=== PATIENT | male | born 1965 | race Caucasian/White ===

== ENCOUNTER 2019-08-30 10:36 | Inpatient (IN) | payer MEDICARE, OTHER ==
[~2019-08-30] VITALS: Ht 190.5 cm; Wt 107.5 kg
[2019-08-30] VITALS (11 sets, daily range): BP systolic 89–177; BP diastolic 49–68
[~2019-08-30 10:36] MED LIST: AMLO10TA4 PO; ASPI-630 PO; CARV25TA PO; CARV25TA2 PO; CHOL500016 PO; CITA40TA5 PO; CYCL10TA2 PO; DIVA-53 PO; DOCU100C28 PO; FOLI1CAP10 PO; FURO80TA3 PO; GABA-689 PO; GABA300C18 PO; INSU100C4 SQ; INSU100I30 SQ; LIPITOR80 MG PO; LISI-130 PO; LORA0.5T PO; LUBI24CA7 PO; METO5TAB4 PO; NITR0.4T22 SL; OXYC1TAB22 PO; PANT20TA2 PO; PRAZ2CAP2 PO; QUET100T4 PO; RANO10002 PO; SEVE800T9 PO; TRAZ300T2 PO; VENTOLIN HFA18 GM INH
[2019-08-30] MEDS ORDERED: NALOXONE 2 MG in IV DEXTROSE 5% 500 ML IV ONE (10:45)
[2019-08-30] MEDS ORDERED: NALOXONE 2 MG/2 ML DISP.SYRIN. IV ONE (10:45)
[2019-08-30] MEDS ORDERED: HALOPERIDOL LACTATE 5 MG/ML VIAL. IVP ONE (11:45)
[2019-08-30 11:58] LABS: BASO % 0 % (0-3); EOS # 0.1 x10^3/uL (0.0-0.7); EOS % 2 % (0-3); HEMATOCRIT 31.7 % (39.0-53.0); HEMOGLOBIN 10.8 g/dL (13.0-17.5); LYMPH # 1.2 x10^3/uL (1.0-4.8); LYMPH % 13 % (24-48); MEAN CORPUSCULAR HEMOGLOBIN 32 pg (25-35); MEAN CORPUSCULAR HGB CONC 34 g/dL (31-37); MEAN CORPUSCULAR VOLUME 95 fL (79-100); MONO # 0.8 x10^3/uL (0.0-1.1); MONO % 9 % (0-9); NEUT # 7.3 x10^3/uL (1.8-7.7); NEUT % 77 % (31-73); PLATELET COUNT 185 x10^3/uL (140-400); RED BLOOD COUNT 3.35 x10^6/uL (4.30-5.70); RED CELL DISTRIBUTION WIDTH 14.6 % (11.5-14.5); WHITE BLOOD COUNT 9.6 x10^3/uL (4.0-11.0)
[2019-08-30 12:04] LABS: CALCIUM 8.8 mg/dL (8.5-10.1); CREATININE 8.5 mg/dL (0.7-1.3); GFR 6.7; POTASSIUM 5.3 mmol/L (3.5-5.1)
[2019-08-30 12:09] LABS: ACETAMIN < 2 mcg/ml (10-30); ETHANOL < 10 mg/dL (0-10)
[2019-08-30 12:10] LABS: ALBUMIN 3.1 g/dL (3.4-5.0); ALBUMIN/GLOBULIN RATIO 0.7 (1.0-1.7); TOTAL BILIRUBIN 0.5 mg/dL (0.2-1.0); TOTAL PROTEIN 7.6 g/dL (6.4-8.2)
[2019-08-30] MEDS ORDERED: ONDANSETRON PF 4 MG/2 ML VIAL. IV PRN (12:30)
--- NOTE | 2019-08-30 13:12 | PHYS DOC ---
Past Medical History Past Medical History: Cancer, CHF, Depression, Diabetes-Type II, Heart Disease, Renal Disease, Renal Failure, Vascular Disease, Other Additional Past Medical Histor: dialysis, lung ca Past Surgical History: Cholecystectomy, Coronary Bypass Surgery, Tonsillectomy Additional Past Surgical Histo: CORONARY BYPASS x 5, fistula placement Alcohol Use: None Drug Use: None Adult General Chief Complaint Chief Complaint: ALTERED MENTAL STATUS HPI HPI Patient is a 53 year old male with history of peripheral artery disease, CAD, end-stage renal disease on dialysis and reported lung cancer who is currently on home hospice who presents decreased LOC with respiratory depression after being given her scheduled dose of morphine and Percocet. Patient was given 20 mg of MS IR at 11 PM and 10-25 mg Percocet at 1 AM by his significant other. This morning, upon returning to check on the patient'S significant other found the patient unresponsive with agonal respirations. EMS were contacted and a total 8 mg of Narcan was administered. GCS improved from 4-14. Patient initially restless and agitated but has not been on ED arrival. Significant other and EMS confirm that patient did not access or take any additional pain medication and that no pain medication is unaccounted. History is limited due to the patient's condition. Patient dialyzes Tuesdays and Saturdays. [] Review of Systems Review of Systems Review symptoms as per history of present illness. All other systems were reviewed and found to be within normal limits, except as documented in this note. Current Medications Current Medications Current Medications Medications (Trade) Dose Ordered Sig/Brittani Start Time Stop Time Status Last Admin Dose Admin Naloxone HCl (Narcan) 2 mg 1X ONCE 08/30/19 10:45 08/30/19 10:46 DC 08/30/19 11:30 2 MG Naloxone HCl 2 mg/ Dextrose 502 ml @ 0 mls/hr 1X ONCE 08/30/19 10:45 08/30/19 10:46 DC Allergies Allergies Allergies Coded Allergies Type Severity Reaction Last Updated Verified hydromorphone Allergy Severe Anaphylaxis 07/16/19 Yes Physical Exam Physical Exam Constitutional: Obtunded, pinpoint pupils. [] HENT: Normocephalic, atraumatic, bilateral external ears normal, oropharynx moist, no oral exudates, nose normal. [] Eyes:, Pupils 2 mm and sluggish. [] Neck: Normal range of motion, no tenderness, supple, no stridor. [] Cardiovascular:Heart rate regular rhythm, no murmur [] Lungs & Thorax: Bilateral breath sounds clear to auscultation [] Abdomen: Bowel sounds normal, soft, no tenderness. [] Skin: Warm, dry. [] Back: No tenderness. [] Extremities: No tenderness no edema. [] Neurologic: Listed tactile stimulation.[] Psychologic: Affect flat [] Current Patient Data Vital Signs Vital Signs Date Time Temp Pulse Resp B/P (MAP) Pulse Ox O2 Delivery O2 Flow Rate FiO2 08/30/19 11:30 78 16 99 08/30/19 10:36 99.1 186/90 (122) Nasal Cannula 4.0 99.1 EKG EKG [EKG: Reviewed] Radiology/Procedures Radiology/Procedures [] Course & Med Decision Making Course & Med Decision Making Pertinent Labs and Imaging studies reviewed. (See chart for details) [Altered mental status with respiratory depression/failure secondary to after therapeutic use of morphine/Percocet administration. Patient given additional Narcan for respiratory depression in the emergency department assaulting and increased agitation. Haldol given. Basic labs reviewed. to admit the ICU. Patient requests DNR code status Dragon Disclaimer Dragon Disclaimer This electronic medical record was generated, in whole or in part, using a voice recognition dictation system. Departure Departure Impression: Primary Impression: Altered mental status Additional Impressions: Acute respiratory failure with hypoxia End stage chronic kidney disease Chronic pain syndrome Disposition: 09 ADMITTED INPATIENT Condition: CRITICAL Referrals: SELENA SALCIDO MD (PCP) Problem Qualifiers MARCIA KNOWLES DO Aug 30, 2019 13:12
[2019-08-30] MEDS ORDERED: IV NORMAL SALINE 1000ML BAG 1,000 ML IV PRN (14:00)
--- NOTE | 2019-08-30 14:47 | PDOC2 ---
NEUROLOGY CONSULT Date of Admission Date of Admission DATE: 08/30/19 TIME: 14:34 Reason for Consult Reason for Consult: agitation Referring Physician Referring Physician: Dr. Tripp Source Source: Chart review History of Present Illness History of Present Illness The patient is a 53-year-old male who became unresponsive this morning after receiving his scheduled dose of morphine. He was in severe respiratory depression in the emergency department. He received Narcan and then became agitated. He then received Haldol and is now sedated. There is no history of stroke, seizure, or head injury. I saw the patient a month ago when he was here for chest pain and whole-body pain. He had been on chronic morphine and even then and was lethargic. In July he had a CT of the entire spine showing multilevel degenerative changes but nothing surgical. CT head showed chronic small vessel disease. 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 There is no history of stroke, seizure, or head injury. During the last hospitalization, he was very vociferous about receiving narcotics, even refusing to go to dialysis unless he got them, but we were concerned then about oversedation. Apparently since he was in the hospital, he has been diagnosed with lung cancer and is now on hospice. Past Medical History Cardiovascular: CAD, CHF, HTN, Hyperlipidemia, Other (deep venous thrombosis) Pulmonary: Bronchitis, Pulmonary embolus, Pneumonia, Other (nocturnal oxygen desaturation, sleep apnea resolved after weight loss) CENTRAL NERVOUS SYSTEM: CVA (left optic nerve), Periperal neuropathy, Other (chronic headache) GI: GERD, Other (hiatal hernia) Heme/Onc: Cancer (lung) Psych: Depression ENT: Other (bilateral hearing loss) Renal/: Chronic renal failure (dialysis) Past Surgical History Past Surgical History: Cholecystectomy, CABG, Tonsillectomy (adenoidectomy), Other (cardiac catheterization, dialysis fistula) Family History Family History: No pertinent hx Social History Social History , smoker Current Medications Current Medications Current Medications Naloxone HCl 2 mg/ Dextrose 502 ml @ 0 mls/hr 1X ONCE IV ; Start 08/30/19 at 10:45; Stop 08/30/19 at 10:46; Status DC Naloxone HCl (Narcan) 2 mg 1X ONCE IV Last administered on 08/30/19at 11:30; Start 08/30/19 at 10:45; Stop 08/30/19 at 10:46; Status DC Haloperidol Lactate (Haldol Inj) 5 mg 1X ONCE IVP Last administered on 08/30at 11:50; Start 08/30/19 at 11:45; Stop 08/30/19 at 11:46; Status DC Ondansetron HCl (Zofran) 4 mg PRN Q8HRS PRN IV NAUSEA/VOMITING; Start 08/30/19 at 12:30; Stop 08/31/19 at 12:29 Active Scripts Active Percocet 10-325 Mg Tablet (Oxycodone/Acetaminophen) 1 Each Tablet 1 Tab PO DAILY PRN 20 Days Reported Novolog (Insulin Aspart) 100 Unit/1 Ml Cartridge 100 Unit SQ TID Vitamin D3 (Cholecalciferol (Vitamin D3)) 5,000 Unit Tablet 1 Tab PO DAILY Ranexa (Ranolazine) 1,000 Mg Tab.er.12h 1 Tab PO DAILY Seroquel (Quetiapine Fumarate) 100 Mg Tablet 1 Tab PO QHS Prazosin Hcl 2 Mg Capsule 1 Cap PO QHS Protonix (Pantoprazole Sodium) 20 Mg Tablet.dr 40 Mg PO DAILY NITROGLYCERIN SubLingual (Nitroglycerin) 0.4 Mg Tab.subl 0.4 Mg SL PRN Q5MIN PRN Docusate Sodium 100 Mg Capsule 1 Cap PO DAILY Divalproex Sodium 500 Mg Tablet.dr 2 Tab PO BID Aspirin 81 Mg Tab.chew 1 Tab PO DAILY Amitiza (Lubiprostone) 24 Mcg Capsule 1 Cap PO DAILY Ventolin Hfa Inhaler (Albuterol Sulfate) 18 Gm Hfa.aer.ad 2 Puff INH PRN Q4HRS Norvasc (Amlodipine Besylate) 10 Mg Tablet 10 Mg PO DAILY Lipitor (Atorvastatin Calcium) 80 Mg Tablet 80 Mg PO HS Coreg (Carvedilol) 25 Mg Tablet 25 Mg PO BIDWMEALS Citalopram Hbr (Citalopram Hydrobromide) 40 Mg Tablet 40 Mg PO DAILY Renal Caps Softgel (Folic Acid/Vitamin B Comp W-C) 1 Mg Capsule 1 Cap PO DAILY Furosemide 80 Mg Tablet 80 Mg PO DAILY Neurontin (Gabapentin) 300 Mg Capsule 300 Mg PO TID Lisinopril 40 Mg Tablet 40 Mg PO DAILY Metolazone 5 Mg Tablet 5 Mg PO DAILY Protonix (Pantoprazole Sodium) 20 Mg Tablet.dr 40 Mg PO DAILY Renvela (Sevelamer Carbonate) 800 Mg Tablet 800 Mg PO TIDWMEALS Trazodone Hcl 300 Mg Tablet 300 Mg PO HS Tresiba Flextouch U-100 (Insulin Degludec) 100 Unit/1 Ml Insuln.pen 42 Unit SQ HS Allergies Allergies: Coded Allergies: hydromorphone (Verified Allergy, Severe, Anaphylaxis, 07/16/19) morphine ok ROS Review of System Not obtainable Physical Exam Physical Examination General: Well-developed, well-nourished, white male in no acute distress HEENT: Normocephalic andatraumatic.Temporal arteriespulsatile and nontender. Neck: Supple without bruit, no meningismus Musculoskeletal: Stability:see neurologic. Gait exam:see neurologic. Tone:see neurologic.Strength:see neurologic. Neurological: Mental Status:orientation, memory, attention span/concentration, language, fund of knowledge: Sleepy, arouses a little to voice, nonverbal, does not follow commands. Cranial Nerves:Pupils equal and reactive to light, extraocular movements areintac. Facial sensation: not cooperative. There is no facial asymmetry. All other cranial related problems are negative except as mentioned b efore.Reflexes:2+ and symmetric with flexor plantar responses. Motor:Moves all extremities to light stimulation. Coordination and gait:Not tested. Sensory:Responds to pinprick in all extremities Vitals VITALS Vital Signs Date Time Temp Pulse Resp B/P (MAP) Pulse Ox O2 Delivery O2 Flow Rate FiO2 08/30/19 13:00 Nasal Cannula 3.0 08/30/19 12:20 72 18 99 08/30/19 10:36 99.1 186/90 (122) 99.1 Labs Labs Laboratory Tests Test 08/30/19 11:45 08/30/19 12:07 White Blood Count 9.6 x10^3/uL (4.0-11.0) Red Blood Count 3.35 x10^6/uL (4.30-5.70) Hemoglobin 10.8 g/dL (13.0-17.5) Hematocrit 31.7 % (39.0-53.0) Mean Corpuscular Volume 95 fL (79-100) Mean Corpuscular Hemoglobin 32 pg (25-35) Mean Corpuscular Hemoglobin Concent 34 g/dL (31-37) Red Cell Distribution Width 14.6 % (11.5-14.5) Platelet Count 185 x10^3/uL (140-400) Neutrophils (%) (Auto) 77 % (31-73) Lymphocytes (%) (Auto) 13 % (24-48) Monocytes (%) (Auto) 9 % (0-9) Eosinophils (%) (Auto) 2 % (0-3) Basophils (%) (Auto) 0 % (0-3) Neutrophils # (Auto) 7.3 x10^3/uL (1.8-7.7) Lymphocytes # (Auto) 1.2 x10^3/uL (1.0-4.8) Monocytes # (Auto) 0.8 x10^3/uL (0.0-1.1) Eosinophils # (Auto) 0.1 x10^3/uL (0.0-0.7) Basophils # (Auto) 0.0 x10^3/uL (0.0-0.2) Sodium Level 131 mmol/L (136-145) Potassium Level 5.3 mmol/L (3.5-5.1) Chloride Level 95 mmol/L (98-107) Carbon Dioxide Level 23 mmol/L (21-32) Anion Gap 13 (6-14) Blood Urea Nitrogen 76 mg/dL (8-26) Creatinine 8.5 mg/dL (0.7-1.3) Estimated GFR (Cockcroft-Gault) 6.7 BUN/Creatinine Ratio 9 (6-20) Glucose Level 241 mg/dL (70-99) Calcium Level 8.8 mg/dL (8.5-10.1) Total Bilirubin 0.5 mg/dL (0.2-1.0) Aspartate Amino Transf (AST/SGOT) 20 U/L (15-37) Alanine Aminotransferase (ALT/SGPT) 20 U/L (16-63) Alkaline Phosphatase 149 U/L (46-116) Total Protein 7.6 g/dL (6.4-8.2) Albumin 3.1 g/dL (3.4-5.0) Albumin/Globulin Ratio 0.7 (1.0-1.7) Acetaminophen Level < 2 mcg/ml (10-30) Acetaminophen Last Dose Date Unknown Acetaminophen Last Dose Time Unknown Ethyl Alcohol Level < 10 mg/dL (0-10) Ammonia 22 mcmol/L (11-34) Laboratory Tests Test 08/30/19 11:45 08/30/19 12:07 White Blood Count 9.6 x10^3/uL (4.0-11.0) Red Blood Count 3.35 x10^6/uL (4.30-5.70) Hemoglobin 10.8 g/dL (13.0-17.5) Hematocrit 31.7 % (39.0-53.0) Mean Corpuscular Volume 95 fL (79-100) Mean Corpuscular Hemoglobin 32 pg (25-35) Mean Corpuscular Hemoglobin Concent 34 g/dL (31-37) Red Cell Distribution Width 14.6 % (11.5-14.5) Platelet Count 185 x10^3/uL (140-400) Neutrophils (%) (Auto) 77 % (31-73) Lymphocytes (%) (Auto) 13 % (24-48) Monocytes (%) (Auto) 9 % (0-9) Eosinophils (%) (Auto) 2 % (0-3) Basophils (%) (Auto) 0 % (0-3) Neutrophils # (Auto) 7.3 x10^3/uL (1.8-7.7) Lymphocytes # (Auto) 1.2 x10^3/uL (1.0-4.8) Monocytes # (Auto) 0.8 x10^3/uL (0.0-1.1) Eosinophils # (Auto) 0.1 x10^3/uL (0.0-0.7) Basophils # (Auto) 0.0 x10^3/uL (0.0-0.2) Sodium Level 131 mmol/L (136-145) Potassium Level 5.3 mmol/L (3.5-5.1) Chloride Level 95 mmol/L (98-107) Carbon Dioxide Level 23 mmol/L (21-32) Anion Gap 13 (6-14) Blood Urea Nitrogen 76 mg/dL (8-26) Creatinine 8.5 mg/dL (0.7-1.3) Estimated GFR (Cockcroft-Gault) 6.7 BUN/Creatinine Ratio 9 (6-20) Glucose Level 241 mg/dL (70-99) Calcium Level 8.8 mg/dL (8.5-10.1) Total Bilirubin 0.5 mg/dL (0.2-1.0) Aspartate Amino Transf (AST/SGOT) 20 U/L (15-37) Alanine Aminotransferase (ALT/SGPT) 20 U/L (16-63) Alkaline Phosphatase 149 U/L (46-116) Total Protein 7.6 g/dL (6.4-8.2) Albumin 3.1 g/dL (3.4-5.0) Albumin/Globulin Ratio 0.7 (1.0-1.7) Acetaminophen Level < 2 mcg/ml (10-30) Acetaminophen Last Dose Date Unknown Acetaminophen Last Dose Time Unknown Ethyl Alcohol Level < 10 mg/dL (0-10) Ammonia 22 mcmol/L (11-34) Assessment/Plan Assessment/Plan Impression: Toxic encephalopathy related to narcotics, now sedated from Haldol; status-post Narcan Chronic pain Depression and other psychiatric problems. Recommendations: Observation Pain management, hopefully with a nonnarcotic agent. I see no need for additional neurological studies such as CT of the head repeat or EEG Thank you for letting me help with the patient's care. MARILUZ ALNA MD Aug 30, 2019 14:47
[2019-08-30] MEDS ORDERED: DIALYSIS PATIENT. MC PRN ×2 (16:30)
[2019-08-30] MEDS: INSULIN LISPRO 300 UNITS/3 ML VIAL. SQ SCH (17:00)
[2019-08-30] MEDS ORDERED: DEXTROSE 50% 25 GM / 50ML DISP.SYRIN. IV PRN (17:00)
--- NOTE | 2019-08-30 17:02 | PDOC ---
Provider Note Provider Note Pt seen in ICU, spoke with ICU nurse and Dialysis nurse.#[id number] SELENA SALCIDO MD Aug 30, 2019 17:02
--- NOTE | 2019-08-30 17:29 | HP ---
ADMIT DATE: 08/30/2019 MEDICAL HISTORY AND PHYSICAL LOCATION: 106. REASON FOR ADMISSION TO THE HOSPITAL: Altered mental status, probably secondary to narcotic pain medication. HISTORY OF PRESENT ILLNESS: The patient is a 53-year-old male. The patient has chronic renal failure, on hemodialysis for 3 years. He had a bypass surgery 3 years ago, 5-vessel disease, and has chronic pain syndrome. The patient was last admitted to the hospital 6 weeks ago. At that time, the patient was complaining a lot of pain; had extensive workup; seen Pain Clinic, Neurology and was insisting on getting pain medication and otherwise he will not go to dialysis. The patient left the hospital at that time and apparently the patient has been on hospice. He is still going to dialysis 3 times a week, Tuesday, , and Tuesday and apparently is on Percocet and hospice started on morphine. He was getting 20 mg morphine sulfate at 11:00 p.m. and then 10 mg Percocet at 1 a.m. The patient was very unresponsive with agonal respiration. The patient's significant other called paramedics, came in and gave 8 mg of Narcan. The patient later became agitated. The patient was given Haldol, was admitted to the hospital and is being seen by Neurology as well as Pain Clinic here. PAST MEDICAL HISTORY: As mentioned above, has history of coronary artery disease, bypass surgery 3 years ago. He is on dialysis at least for 3 years hemodialysis. He also has chronic pain syndrome, depression, heart failure, renal disease. PAST SURGICAL HISTORY: Gallbladder surgery, bypass surgery, tonsillectomy, AV shunts. He also had a fall and injury to the hip and femur, had surgeries done for that. ALLERGIES: HYDROMORPHONE. MEDICATIONS AT HOME: Amlodipine 10 mg daily, aspirin 81 mg daily, is on Depakote 1000 mg twice a day, Colace 100 mg daily, Lasix 80 mg daily, gabapentin 300 mg 3 times daily, lisinopril 40 mg daily, Amitiza 24 mcg daily, nitroglycerin p.r.n., oxycodone 10 mg q.6 p.r.n., Seroquel 100 mg at bedtime, Renvela 800 mg 3 times daily, albuterol inhaler, atorvastatin 80 mg daily, Coreg 25 mg twice a day, vitamin D 5000 daily, citalopram 40 mg daily, folic acid 1 mg daily, sliding scale insulin, Tresiba 42 units at bedtime, metolazone 5 mg daily, Protonix 40 mg daily, prazosin 1 capsule 2 mg daily, Ranexa 1000 mg q.12, trazodone 300 mg at bedtime. REVIEW OF SYSTEMS: The patient is very lethargic, obtunded, getting dialysis in the ICU. SOCIAL HISTORY: Smokes less than a pack. Denies alcohol. Has been on hospice lately, getting narcotic pain medications. PHYSICAL EXAMINATION: GENERAL: The patient is obtunded. VITAL SIGNS: Temperature 99, pulse 87, respirations 16, blood pressure 186/90, pulse ox 99 on nasal cannula. HEENT: Head is atraumatic. Pupils sluggish. Oral cavity not able to examine. NECK: No masses. CHEST: Symmetrical, scar of heart bypass surgery. CARDIOVASCULAR: S1, S2. LUNGS: Diminished breath sounds at the base. ABDOMEN: Soft, no mass palpable. EXTERNAL GENITALIA: No Hale. RECTAL: Deferred. EXTREMITIES: No calf tenderness, no edema. As mentioned, the patient is getting dialysis right now. NEUROLOGIC: The patient is very obtunded, not responsive to deep painful stimulus. LABORATORY DATA: Shows a white count 9, hemoglobin 10.8, platelets 185. Electrolytes: Sodium 131, potassium 5.3, chloride 95, bicarbonate 23, BUN 76, creatinine 8.9. LFTs normal. Ammonia 22. FINAL IMPRESSION: 1. Change in mental status, obtunded state secondary to narcotic overdose. 2. Chronic pain syndrome. The patient is on hospice. 3. End-stage renal disease, on hemodialysis. 4. Coronary artery disease, status post bypass surgery. 5. Chronic congestive heart failure. 6. Chronic coronary artery disease. 7. Depression. 8. History of previous hip fracture from fall, left femoral fracture, had surgeries done for that. PLAN: At this time, the patient is on dialysis, getting dialyzed today, seen by Neurology, was given dose of Haldol for agitation and we will see how the patient's condition improves in the next 24-48 hours. Pain Clinic was consulted. Palliative team was also consulted to help with process. SELENA SALCIDO MD DR: TIERA/kareem JOB#: [id number] / [id number]
--- NOTE | 2019-08-30 23:59 | NUR ---
Pt brought to ICU room 108 at 2105 by two RTs and one ED RN. Pt bagged through ET tube by RT during transfer into ICU bed. Transferred into ICU bed with 5x assistance. Pt placed on ventilator and IV medications moved to ICU IV pole. VSS upon admission. By the time second BP was taken, SBP dropped below 90 and levophed had to be increased. Levophed increased many times so far throughout shift. VS charted and titrated dose updated in IV spreadsheet. Pt on Versed 7 mL/hr for sedation upon admission. Pt restless, thrashing arms and legs. Pt positive for sepsis screen ED MD aware. This RN called and notified Dr. Daniels of pt admission, positive sepsis screen, and restlessness on Versed. Received order to start Levaquin and Vancomycin per pharmacy, start Fentanyl gtt per protocol, and continue to titrate Levophed per protocol. Fluid boluses already complete per ED RN. Orders all entered into system. Pt current RASS score -3 with Fentanyl added for sedation.
[2019-08-31] VITALS (13 sets, daily range): BP systolic 94–157; BP diastolic 44–81
[2019-08-31 05:23] LABS: BASO % 0 % (0-3); EOS # 0.2 x10^3/uL (0.0-0.7); EOS % 3 % (0-3); HEMATOCRIT 32.2 % (39.0-53.0); HEMOGLOBIN 10.9 g/dL (13.0-17.5); LYMPH # 2.1 x10^3/uL (1.0-4.8); LYMPH % 33 % (24-48); MEAN CORPUSCULAR HEMOGLOBIN 32 pg (25-35); MEAN CORPUSCULAR HGB CONC 34 g/dL (31-37); MEAN CORPUSCULAR VOLUME 95 fL (79-100); MONO # 0.7 x10^3/uL (0.0-1.1); MONO % 11 % (0-9); NEUT # 3.4 x10^3/uL (1.8-7.7); NEUT % 53 % (31-73); PLATELET COUNT 181 x10^3/uL (140-400); RED BLOOD COUNT 3.39 x10^6/uL (4.30-5.70); RED CELL DISTRIBUTION WIDTH 14.7 % (11.5-14.5); WHITE BLOOD COUNT 6.3 x10^3/uL (4.0-11.0)
[2019-08-31 05:39] LABS: ALBUMIN 2.9 g/dL (3.4-5.0); ALBUMIN/GLOBULIN RATIO 0.6 (1.0-1.7); CALCIUM 8.7 mg/dL (8.5-10.1); CREATININE 6.8 mg/dL (0.7-1.3); GFR 8.6; POTASSIUM 4.2 mmol/L (3.5-5.1); TOTAL BILIRUBIN 0.4 mg/dL (0.2-1.0); TOTAL PROTEIN 7.5 g/dL (6.4-8.2)
[2019-08-31] MEDS: INSULIN LISPRO 300 UNITS/3 ML VIAL. SQ SCH ×2 (07:32→12:19)
--- NOTE | 2019-08-31 08:34 | PDOC ---
SUBJECTIVE Subjective all over body pain OBJECTIVE Objective 53yo male who became unresponsive after receiving his scheduled dose of morphine. He was in severe respiratory depression in the emergency department. He received Narcan and then became agitated. He then received Haldol and is sedated. There is no history of stroke, seizure, or head injury. July, he had a CT of the entire spine showing multilevel degenerative changes but nothing surgical. CT head showed chronic small vessel disease. There is no history of stroke, seizure, or head injury. Reportedly, since he was in the hospital, he has been diagnosed with lung cancer and is now on hospice. Vital Signs Vital Signs Date Time Temp Pulse Resp B/P (MAP) Pulse Ox O2 Delivery O2 Flow Rate FiO2 08/31/19 07:56 Nasal Cannula 2.0 08/31/19 07:00 75 16 115/59 (77) 96 Nasal Cannula 2.0 08/31/19 06:00 76 16 123/59 (80) 96 Nasal Cannula 2.0 08/31/19 05:00 76 18 125/60 (81) 96 Nasal Cannula 2.0 08/31/19 04:00 98.5 75 15 121/76 (91) 97 Nasal Cannula 3.0 98.5 08/31/19 04:00 Nasal Cannula 3.0 08/31/19 03:00 73 14 114/60 (78) 96 Nasal Cannula 3.0 08/31/19 02:00 72 13 118/55 (76) 97 Nasal Cannula 3.0 08/31/19 01:00 70 12 94/44 (61) 97 Nasal Cannula 3.0 08/31/19 00:01 98.5 72 14 139/63 (88) 97 Nasal Cannula 3.0 98.5 08/30/19 23:59 Nasal Cannula 3.0 08/30/19 23:00 74 14 92/61 (71) 97 Nasal Cannula 3.0 08/30/19 22:00 74 12 99/55 (70) 97 Nasal Cannula 3.0 08/30/19 21:00 80 12 127/65 (85) 96 Nasal Cannula 3.0 08/30/19 20:00 Nasal Cannula 3.0 08/30/19 20:00 98.4 75 14 113/55 (74) 97 Nasal Cannula 3.0 98.4 08/30/19 19:00 75 12 117/57 (77) 96 Nasal Cannula 3.0 08/30/19 18:00 78 12 89/49 (62) 98 Nasal Cannula 3.0 08/30/19 17:00 78 13 110/58 (75) 97 Nasal Cannula 3.0 08/30/19 16:00 98.2 74 16 128/60 (82) 96 Nasal Cannula 3.0 98.2 08/30/19 16:00 Nasal Cannula 3.0 08/30/19 15:00 74 12 127/57 (80) 96 Nasal Cannula 3.0 08/30/19 14:00 74 12 122/55 (77) 96 Nasal Cannula 3.0 08/30/19 13:00 98.0 83 17 177/68 (104) 95 Nasal Cannula 3.0 98.0 08/30/19 13:00 Nasal Cannula 3.0 08/30/19 12:20 72 18 99 08/30/19 12:00 78 16 99 08/30/19 11:30 78 16 99 08/30/19 11:00 80 16 99 08/30/19 10:36 99.1 87 16 186/90 (122) 99 Nasal Cannula 4.0 99.1 I & O Intake and Output 08/31/19 07:00 Intake Total 0 ml Balance 0 ml Intake Oral 0 ml ASSESSMENT/PLAN Assessment/Plan REC: Coordinate, thru hospice, a decrease in MsO4 dose on routine schedule Advised not to take p.o. narcotics at same interval as IV MsO4 May alternatively substitute Mso4 with Duragesic patch, if effective. COMMENT Lab Laboratory Tests Test 08/30/19 11:45 08/30/19 12:07 08/30/19 17:30 08/31/19 05:00 White Blood Count 9.6 x10^3/uL (4.0-11.0) 6.3 x10^3/uL (4.0-11.0) Red Blood Count 3.35 x10^6/uL (4.30-5.70) 3.39 x10^6/uL (4.30-5.70) Hemoglobin 10.8 g/dL (13.0-17.5) 10.9 g/dL (13.0-17.5) Hematocrit 31.7 % (39.0-53.0) 32.2 % (39.0-53.0) Mean Corpuscular Volume 95 fL (79-100) 95 fL (79-100) Mean Corpuscular Hemoglobin 32 pg (25-35) 32 pg (25-35) Mean Corpuscular Hemoglobin Concent 34 g/dL (31-37) 34 g/dL (31-37) Red Cell Distribution Width 14.6 % (11.5-14.5) 14.7 % (11.5-14.5) Platelet Count 185 x10^3/uL (140-400) 181 x10^3/uL (140-400) Neutrophils (%) (Auto) 77 % (31-73) 53 % (31-73) Lymphocytes (%) (Auto) 13 % (24-48) 33 % (24-48) Monocytes (%) (Auto) 9 % (0-9) 11 % (0-9) Eosinophils (%) (Auto) 2 % (0-3) 3 % (0-3) Basophils (%) (Auto) 0 % (0-3) 0 % (0-3) Neutrophils # (Auto) 7.3 x10^3/uL (1.8-7.7) 3.4 x10^3/uL (1.8-7.7) Lymphocytes # (Auto) 1.2 x10^3/uL (1.0-4.8) 2.1 x10^3/uL (1.0-4.8) Monocytes # (Auto) 0.8 x10^3/uL (0.0-1.1) 0.7 x10^3/uL (0.0-1.1) Eosinophils # (Auto) 0.1 x10^3/uL (0.0-0.7) 0.2 x10^3/uL (0.0-0.7) Basophils # (Auto) 0.0 x10^3/uL (0.0-0.2) 0.0 x10^3/uL (0.0-0.2) Sodium Level 131 mmol/L (136-145) 136 mmol/L (136-145) Potassium Level 5.3 mmol/L (3.5-5.1) 4.2 mmol/L (3.5-5.1) Chloride Level 95 mmol/L (98-107) 98 mmol/L (98-107) Carbon Dioxide Level 23 mmol/L (21-32) 29 mmol/L (21-32) Anion Gap 13 (6-14) 9 (6-14) Blood Urea Nitrogen 76 mg/dL (8-26) 50 mg/dL (8-26) Creatinine 8.5 mg/dL (0.7-1.3) 6.8 mg/dL (0.7-1.3) Estimated GFR (Cockcroft-Gault) 6.7 8.6 BUN/Creatinine Ratio 9 (6-20) 7 (6-20) Glucose Level 241 mg/dL (70-99) 93 mg/dL (70-99) Calcium Level 8.8 mg/dL (8.5-10.1) 8.7 mg/dL (8.5-10.1) Total Bilirubin 0.5 mg/dL (0.2-1.0) 0.4 mg/dL (0.2-1.0) Aspartate Amino Transf (AST/SGOT) 20 U/L (15-37) 21 U/L (15-37) Alanine Aminotransferase (ALT/SGPT) 20 U/L (16-63) 17 U/L (16-63) Alkaline Phosphatase 149 U/L (46-116) 146 U/L (46-116) Total Protein 7.6 g/dL (6.4-8.2) 7.5 g/dL (6.4-8.2) Albumin 3.1 g/dL (3.4-5.0) 2.9 g/dL (3.4-5.0) Albumin/Globulin Ratio 0.7 (1.0-1.7) 0.6 (1.0-1.7) Acetaminophen Level < 2 mcg/ml (10-30) Acetaminophen Last Dose Date Unknown Acetaminophen Last Dose Time Unknown Ethyl Alcohol Level < 10 mg/dL (0-10) Ammonia 22 mcmol/L (11-34) Glucose (Fingerstick) 135 mg/dL (70-99) KEVIN MCKEON MD Aug 31, 2019 08:34
[2019-08-31] MEDS ORDERED: LORA0.5T96 PO (08:46)
[2019-08-31] MEDS ORDERED: CYCL10TA2 PO (08:49)
--- NOTE | 2019-08-31 09:26 | PDOC2 ---
CONSULT Date of Consult Date of Consult DATE: 08/30/19 TIME: 13:27 Reason for Consult Reason for Consult: Stat Consult for ESRD, K of 5.3 Identification/Chief Complaint Chief Complaint Unable to Obtain, pt with AMS/unresponsive Source Source: Chart review History of Present Illness Reason for Visit: The patient is a 53-year-old male, ESRD on HD for 3 years. He had a bypass surgery 3 years ago, 5-vessel disease, and has chronic pain syndrome. The patient was last admitted to the hospital 6 weeks ago. At that time, the patient was complaining a lot of pain; had extensive workup; seen Pain Clinic, Neurology and was insisting on getting pain medication and otherwise he will not go to dialysis. The patient left the hospital at that time and apparently the patient has been on hospice. He is still going to dialysis 3 times a week, Tuesday, , and Tuesday and is on Percocet and hospice started on morphine. He was found to be unresponsive with agonal respiration,paramedics were called , he recd Narcan. Labs Obtained from RN. No Labs done at [facility] yet Past Medical History Cardiovascular: CAD, CHF, HTN, Hyperlipidemia, Other (deep venous thrombosis) Pulmonary: Bronchitis, Pulmonary embolus, Pneumonia, Other (nocturnal oxygen desaturation, sleep apnea resolved after weight loss) CENTRAL NERVOUS SYSTEM: CVA (left optic nerve), Periperal neuropathy, Other (chronic headache) GI: GERD, Other (hiatal hernia) Heme/Onc: Cancer (lung) Psych: Depression ENT: Other (bilateral hearing loss) Renal/: Chronic renal failure (dialysis) Endocrine: Diabetes Past Surgical History Past Surgical History: Cholecystectomy, CABG, Tonsillectomy (adenoidectomy), Other (cardiac catheterization, dialysis fistula) Social History ALCOHOL: none Drugs: Cocaine Lives: with Family Current Problem List Problem List Problems Medical Problems: (1) Acute respiratory failure with hypoxia Status: Acute (2) Altered mental status Status: Acute (3) Chronic pain syndrome Status: Chronic (4) End stage chronic kidney disease Status: Acute Current Medications Current Medications Current Medications Naloxone HCl 2 mg/ Dextrose 502 ml @ 0 mls/hr 1X ONCE IV ; Start 08/30/19 at 10:45; Stop 08/30/19 at 10:46; Status DC Naloxone HCl (Narcan) 2 mg 1X ONCE IV Last administered on 08/30/19at 11:30; Start 08/30/19 at 10:45; Stop 08/30/19 at 10:46; Status DC Haloperidol Lactate (Haldol Inj) 5 mg 1X ONCE IVP Last administered on 08/30/19at 11:50; Start 08/30/19 at 11:45; Stop 08/30/19 at 11:46; Status DC Ondansetron HCl (Zofran) 4 mg PRN Q8HRS PRN IV NAUSEA/VOMITING; Start 08/30/19 at 12:30; Stop 08/31/19 at 12:29 Sodium Chloride 1,000 ml @ 1,000 mls/hr Q1H PRN IV hypotension; Start 08/30/19 at 14:00; Stop 08/30/19 at 19:59; Status DC Info (PHARMACY MONITORING -- do not chart) 1 each PRN DAILY PRN MC SEE COMMENTS; Start 08/30/19 at 16:30; Status UNV Info (PHARMACY MONITORING -- do not chart) 1 each PRN DAILY PRN MC SEE COMMENTS; Start 08/30/19 at 16:30 Insulin Human Lispro (HumaLOG) 0-9 UNITS TIDWMEALS SQ ; Start 08/30/19 at 17:00 Dextrose (Dextrose 50%-Water Syringe) 12.5 gm PRN Q15MIN PRN IV SEE COMMENTS; Start 08/30/19 at 17:00 Active Scripts Active Percocet 10-325 Mg Tablet (Oxycodone/Acetaminophen) 1 Each Tablet 1 Tab PO DAILY PRN 20 Days Reported Cyclobenzaprine Hcl 10 Mg Tablet 1 Tab PO TID Ativan (Lorazepam) 0.5 Mg Tablet 0.5 Mg PO Q6HRS Novolog (Insulin Aspart) 100 Unit/1 Ml Cartridge 100 Unit SQ TID Vitamin D3 (Cholecalciferol (Vitamin D3)) 5,000 Unit Tablet 1 Tab PO DAILY Ranexa (Ranolazine) 1,000 Mg Tab.er.12h 1 Tab PO DAILY Seroquel (Quetiapine Fumarate) 100 Mg Tablet 1 Tab PO QHS Prazosin Hcl 2 Mg Capsule 1 Cap PO QHS Protonix (Pantoprazole Sodium) 20 Mg Tablet.dr 40 Mg PO DAILY NITROGLYCERIN SubLingual (Nitroglycerin) 0.4 Mg Tab.subl 0.4 Mg SL PRN Q5MIN PRN Docusate Sodium 100 Mg Capsule 1 Cap PO DAILY Divalproex Sodium 500 Mg Tablet.dr 2 Tab PO BID Aspirin 81 Mg Tab.chew 1 Tab PO DAILY Amitiza (Lubiprostone) 24 Mcg Capsule 1 Cap PO DAILY Ventolin Hfa Inhaler (Albuterol Sulfate) 18 Gm Hfa.aer.ad 2 Puff INH PRN Q4HRS Norvasc (Amlodipine Besylate) 10 Mg Tablet 10 Mg PO DAILY Lipitor (Atorvastatin Calcium) 80 Mg Tablet 80 Mg PO HS Coreg (Carvedilol) 25 Mg Tablet 25 Mg PO BIDWMEALS Citalopram Hbr (Citalopram Hydrobromide) 40 Mg Tablet 40 Mg PO DAILY Renal Caps Softgel (Folic Acid/Vitamin B Comp W-C) 1 Mg Capsule 1 Cap PO DAILY Furosemide 80 Mg Tablet 80 Mg PO DAILY Neurontin (Gabapentin) 300 Mg Capsule 300 Mg PO TID Lisinopril 40 Mg Tablet 40 Mg PO DAILY Metolazone 5 Mg Tablet 5 Mg PO DAILY Protonix (Pantoprazole Sodium) 20 Mg Tablet.dr 40 Mg PO DAILY Renvela (Sevelamer Carbonate) 800 Mg Tablet 800 Mg PO TIDWMEALS Trazodone Hcl 300 Mg Tablet 300 Mg PO HS Tresiba Flextouch U-100 (Insulin Degludec) 100 Unit/1 Ml Insuln.pen 42 Unit SQ HS Allergies Allergies: Coded Allergies: hydromorphone (Verified Allergy, Severe, Anaphylaxis, 07/16/19) morphine ok ROS Review of System Unable to Obtain Physical Exam Physical Exam GENERAL: obtunded. HEENT: Head is atraumatic. Oral cavity not able to examine. NECK: supple CARDIOVASCULAR: S1, S2. LUNGS: Diminished breath sounds at the base, On O2 by NC ABDOMEN: Soft, : No Hale. EXTREMITIES: no edema NEUROLOGIC: obtunded, not responsive to deep painful stimulus. Skin No rash Vital Signs Vital Signs Date Time Temp Pulse Resp B/P (MAP) Pulse Ox O2 Delivery O2 Flow Rate FiO2 08/31/19 09:00 81 14 154/73 (100) 96 Nasal Cannula 2.0 08/31/19 08:00 98.8 98.8 Assessment & Plan ESRD - On HD TTS Missed HD this am as OP, Dialysis today as ordered, Ravi Meraz Hyperkalemia- Mild HD today AMS/Obtunded/Unresponsive Consult neurology Hx of CAD s/p CABG Chronic pain syndrome. The patient is on hospice. Chronic congestive heart failure- appears to be compensated Depression. History of previous hip fracture from fall, left femoral fracture, had surgeries done for that. Discussed with RN at bed side Labs Labs Laboratory Tests Test 08/30/19 11:45 08/30/19 12:07 08/30/19 17:30 08/31/19 05:00 White Blood Count 9.6 x10^3/uL (4.0-11.0) 6.3 x10^3/uL (4.0-11.0) Red Blood Count 3.35 x10^6/uL (4.30-5.70) 3.39 x10^6/uL (4.30-5.70) Hemoglobin 10.8 g/dL (13.0-17.5) 10.9 g/dL (13.0-17.5) Hematocrit 31.7 % (39.0-53.0) 32.2 % (39.0-53.0) Mean Corpuscular Volume 95 fL (79-100) 95 fL (79-100) Mean Corpuscular Hemoglobin 32 pg (25-35) 32 pg (25-35) Mean Corpuscular Hemoglobin Concent 34 g/dL (31-37) 34 g/dL (31-37) Red Cell Distribution Width 14.6 % (11.5-14.5) 14.7 % (11.5-14.5) Platelet Count 185 x10^3/uL (140-400) 181 x10^3/uL (140-400) Neutrophils (%) (Auto) 77 % (31-73) 53 % (31-73) Lymphocytes (%) (Auto) 13 % (24-48) 33 % (24-48) Monocytes (%) (Auto) 9 % (0-9) 11 % (0-9) Eosinophils (%) (Auto) 2 % (0-3) 3 % (0-3) Basophils (%) (Auto) 0 % (0-3) 0 % (0-3) Neutrophils # (Auto) 7.3 x10^3/uL (1.8-7.7) 3.4 x10^3/uL (1.8-7.7) Lymphocytes # (Auto) 1.2 x10^3/uL (1.0-4.8) 2.1 x10^3/uL (1.0-4.8) Monocytes # (Auto) 0.8 x10^3/uL (0.0-1.1) 0.7 x10^3/uL (0.0-1.1) Eosinophils # (Auto) 0.1 x10^3/uL (0.0-0.7) 0.2 x10^3/uL (0.0-0.7) Basophils # (Auto) 0.0 x10^3/uL (0.0-0.2) 0.0 x10^3/uL (0.0-0.2) Sodium Level 131 mmol/L (136-145) 136 mmol/L (136-145) Potassium Level 5.3 mmol/L (3.5-5.1) 4.2 mmol/L (3.5-5.1) Chloride Level 95 mmol/L (98-107) 98 mmol/L (98-107) Carbon Dioxide Level 23 mmol/L (21-32) 29 mmol/L (21-32) Anion Gap 13 (6-14) 9 (6-14) Blood Urea Nitrogen 76 mg/dL (8-26) 50 mg/dL (8-26) Creatinine 8.5 mg/dL (0.7-1.3) 6.8 mg/dL (0.7-1.3) Estimated GFR (Cockcroft-Gault) 6.7 8.6 BUN/Creatinine Ratio 9 (6-20) 7 (6-20) Glucose Level 241 mg/dL (70-99) 93 mg/dL (70-99) Calcium Level 8.8 mg/dL (8.5-10.1) 8.7 mg/dL (8.5-10.1) Total Bilirubin 0.5 mg/dL (0.2-1.0) 0.4 mg/dL (0.2-1.0) Aspartate Amino Transf (AST/SGOT) 20 U/L (15-37) 21 U/L (15-37) Alanine Aminotransferase (ALT/SGPT) 20 U/L (16-63) 17 U/L (16-63) Alkaline Phosphatase 149 U/L (46-116) 146 U/L (46-116) Total Protein 7.6 g/dL (6.4-8.2) 7.5 g/dL (6.4-8.2) Albumin 3.1 g/dL (3.4-5.0) 2.9 g/dL (3.4-5.0) Albumin/Globulin Ratio 0.7 (1.0-1.7) 0.6 (1.0-1.7) Acetaminophen Level < 2 mcg/ml (10-30) Acetaminophen Last Dose Date Unknown Acetaminophen Last Dose Time Unknown Ethyl Alcohol Level < 10 mg/dL (0-10) Ammonia 22 mcmol/L (11-34) Glucose (Fingerstick) 135 mg/dL (70-99) Laboratory Tests Test 08/30/19 11:45 08/30/19 12:07 08/30/19 17:30 08/31/19 05:00 White Blood Count 9.6 x10^3/uL (4.0-11.0) 6.3 x10^3/uL (4.0-11.0) Red Blood Count 3.35 x10^6/uL (4.30-5.70) 3.39 x10^6/uL (4.30-5.70) Hemoglobin 10.8 g/dL (13.0-17.5) 10.9 g/dL (13.0-17.5) Hematocrit 31.7 % (39.0-53.0) 32.2 % (39.0-53.0) Mean Corpuscular Volume 95 fL (79-100) 95 fL (79-100) Mean Corpuscular Hemoglobin 32 pg (25-35) 32 pg (25-35) Mean Corpuscular Hemoglobin Concent 34 g/dL (31-37) 34 g/dL (31-37) Red Cell Distribution Width 14.6 % (11.5-14.5) 14.7 % (11.5-14.5) Platelet Count 185 x10^3/uL (140-400) 181 x10^3/uL (140-400) Neutrophils (%) (Auto) 77 % (31-73) 53 % (31-73) Lymphocytes (%) (Auto) 13 % (24-48) 33 % (24-48) Monocytes (%) (Auto) 9 % (0-9) 11 % (0-9) Eosinophils (%) (Auto) 2 % (0-3) 3 % (0-3) Basophils (%) (Auto) 0 % (0-3) 0 % (0-3) Neutrophils # (Auto) 7.3 x10^3/uL (1.8-7.7) 3.4 x10^3/uL (1.8-7.7) Lymphocytes # (Auto) 1.2 x10^3/uL (1.0-4.8) 2.1 x10^3/uL (1.0-4.8) Monocytes # (Auto) 0.8 x10^3/uL (0.0-1.1) 0.7 x10^3/uL (0.0-1.1) Eosinophils # (Auto) 0.1 x10^3/uL (0.0-0.7) 0.2 x10^3/uL (0.0-0.7) Basophils # (Auto) 0.0 x10^3/uL (0.0-0.2) 0.0 x10^3/uL (0.0-0.2) Sodium Level 131 mmol/L (136-145) 136 mmol/L (136-145) Potassium Level 5.3 mmol/L (3.5-5.1) 4.2 mmol/L (3.5-5.1) Chloride Level 95 mmol/L (98-107) 98 mmol/L (98-107) Carbon Dioxide Level 23 mmol/L (21-32) 29 mmol/L (21-32) Anion Gap 13 (6-14) 9 (6-14) Blood Urea Nitrogen 76 mg/dL (8-26) 50 mg/dL (8-26) Creatinine 8.5 mg/dL (0.7-1.3) 6.8 mg/dL (0.7-1.3) Estimated GFR (Cockcroft-Gault) 6.7 8.6 BUN/Creatinine Ratio 9 (6-20) 7 (6-20) Glucose Level 241 mg/dL (70-99) 93 mg/dL (70-99) Calcium Level 8.8 mg/dL (8.5-10.1) 8.7 mg/dL (8.5-10.1) Total Bilirubin 0.5 mg/dL (0.2-1.0) 0.4 mg/dL (0.2-1.0) Aspartate Amino Transf (AST/SGOT) 20 U/L (15-37) 21 U/L (15-37) Alanine Aminotransferase (ALT/SGPT) 20 U/L (16-63) 17 U/L (16-63) Alkaline Phosphatase 149 U/L (46-116) 146 U/L (46-116) Total Protein 7.6 g/dL (6.4-8.2) 7.5 g/dL (6.4-8.2) Albumin 3.1 g/dL (3.4-5.0) 2.9 g/dL (3.4-5.0) Albumin/Globulin Ratio 0.7 (1.0-1.7) 0.6 (1.0-1.7) Acetaminophen Level < 2 mcg/ml (10-30) Acetaminophen Last Dose Date Unknown Acetaminophen Last Dose Time Unknown Ethyl Alcohol Level < 10 mg/dL (0-10) Ammonia 22 mcmol/L (11-34) Glucose (Fingerstick) 135 mg/dL (70-99) Review All relevant outside records, renal labs, imaging studies, telemetry/EKG's were reviewed. JEAN PAUL CESPEEDS MD Aug 31, 2019 09:26
--- NOTE | 2019-08-31 09:27 | PDOC ---
SUBJECTIVE ROS Alert, oriented, no complaints Anticipate dc today OBJECTIVE Vital Signs Vital Signs Date Time Temp Pulse Resp B/P (MAP) Pulse Ox O2 Delivery O2 Flow Rate FiO2 08/31/19 09:00 81 14 154/73 (100) 96 Nasal Cannula 2.0 08/31/19 08:00 98.8 98.8 I & 0 Intake and Output 08/31/19 07:00 Intake Total 0 ml Balance 0 ml Intake Oral 0 ml PHYSICAL EXAM Physical Exam GENERAL: obtunded. HEENT: Head is atraumatic. Oral cavity not able to examine. NECK: supple CARDIOVASCULAR: S1, S2. LUNGS: Diminished breath sounds at the base, On O2 by NC ABDOMEN: Soft, : No Hale. EXTREMITIES: no edema NEUROLOGIC: obtunded, not responsive to deep painful stimulus. Skin No rash DIAGNOSIS/ASSESSMENT Assessment & Plan ESRD - On HD TTS Dialysed yesterday No indication today Hyperkalemia- resolved post HD AMS/Obtunded/Unresponsive at presentation Resolved Hx of CAD s/p CABG Chronic pain syndrome. The patient is on hospice. Chronic congestive heart failure- appears to be compensated Depression. History of previous hip fracture from fall, left femoral fracture, had surgeries done for that. Discussed with RN, pt and at bed side COMMENT/RELEVANT DATA Meds Current Medications Medications (Trade) Dose Ordered Sig/Brittani Start Time Stop Time Status Last Admin Dose Admin Dextrose (Dextrose 50%-Water Syringe) 12.5 gm PRN Q15MIN PRN 08/30/19 17:00 Haloperidol Lactate (Haldol Inj) 5 mg 1X ONCE 08/30/19 11:45 08/30/19 11:46 DC 08/30/19 11:50 Info (PHARMACY MONITORING -- do not chart) 1 each PRN DAILY PRN 08/30/19 16:30 Insulin Human Lispro (HumaLOG) 0-9 UNITS TIDWMEALS 08/30/19 17:00 Naloxone HCl (Narcan) 2 mg 1X ONCE 08/30/19 10:45 08/30/19 10:46 DC 08/30/19 11:30 Naloxone HCl 2 mg/ Dextrose 502 ml @ 0 mls/hr 1X ONCE 08/30/19 10:45 08/30/19 10:46 DC Ondansetron HCl (Zofran) 4 mg PRN Q8HRS PRN 08/30/19 12:30 08/31/19 12:29 Sodium Chloride 1,000 ml @ 1,000 mls/hr Q1H PRN 08/30/19 14:00 08/30/19 19:59 DC Lab Laboratory Tests Test 08/30/19 11:45 08/30/19 12:07 08/30/19 17:30 08/31/19 05:00 White Blood Count 9.6 x10^3/uL (4.0-11.0) 6.3 x10^3/uL (4.0-11.0) Red Blood Count 3.35 x10^6/uL (4.30-5.70) 3.39 x10^6/uL (4.30-5.70) Hemoglobin 10.8 g/dL (13.0-17.5) 10.9 g/dL (13.0-17.5) Hematocrit 31.7 % (39.0-53.0) 32.2 % (39.0-53.0) Mean Corpuscular Volume 95 fL (79-100) 95 fL (79-100) Mean Corpuscular Hemoglobin 32 pg (25-35) 32 pg (25-35) Mean Corpuscular Hemoglobin Concent 34 g/dL (31-37) 34 g/dL (31-37) Red Cell Distribution Width 14.6 % (11.5-14.5) 14.7 % (11.5-14.5) Platelet Count 185 x10^3/uL (140-400) 181 x10^3/uL (140-400) Neutrophils (%) (Auto) 77 % (31-73) 53 % (31-73) Lymphocytes (%) (Auto) 13 % (24-48) 33 % (24-48) Monocytes (%) (Auto) 9 % (0-9) 11 % (0-9) Eosinophils (%) (Auto) 2 % (0-3) 3 % (0-3) Basophils (%) (Auto) 0 % (0-3) 0 % (0-3) Neutrophils # (Auto) 7.3 x10^3/uL (1.8-7.7) 3.4 x10^3/uL (1.8-7.7) Lymphocytes # (Auto) 1.2 x10^3/uL (1.0-4.8) 2.1 x10^3/uL (1.0-4.8) Monocytes # (Auto) 0.8 x10^3/uL (0.0-1.1) 0.7 x10^3/uL (0.0-1.1) Eosinophils # (Auto) 0.1 x10^3/uL (0.0-0.7) 0.2 x10^3/uL (0.0-0.7) Basophils # (Auto) 0.0 x10^3/uL (0.0-0.2) 0.0 x10^3/uL (0.0-0.2) Sodium Level 131 mmol/L (136-145) 136 mmol/L (136-145) Potassium Level 5.3 mmol/L (3.5-5.1) 4.2 mmol/L (3.5-5.1) Chloride Level 95 mmol/L (98-107) 98 mmol/L (98-107) Carbon Dioxide Level 23 mmol/L (21-32) 29 mmol/L (21-32) Anion Gap 13 (6-14) 9 (6-14) Blood Urea Nitrogen 76 mg/dL (8-26) 50 mg/dL (8-26) Creatinine 8.5 mg/dL (0.7-1.3) 6.8 mg/dL (0.7-1.3) Estimated GFR (Cockcroft-Gault) 6.7 8.6 BUN/Creatinine Ratio 9 (6-20) 7 (6-20) Glucose Level 241 mg/dL (70-99) 93 mg/dL (70-99) Calcium Level 8.8 mg/dL (8.5-10.1) 8.7 mg/dL (8.5-10.1) Total Bilirubin 0.5 mg/dL (0.2-1.0) 0.4 mg/dL (0.2-1.0) Aspartate Amino Transf (AST/SGOT) 20 U/L (15-37) 21 U/L (15-37) Alanine Aminotransferase (ALT/SGPT) 20 U/L (16-63) 17 U/L (16-63) Alkaline Phosphatase 149 U/L (46-116) 146 U/L (46-116) Total Protein 7.6 g/dL (6.4-8.2) 7.5 g/dL (6.4-8.2) Albumin 3.1 g/dL (3.4-5.0) 2.9 g/dL (3.4-5.0) Albumin/Globulin Ratio 0.7 (1.0-1.7) 0.6 (1.0-1.7) Acetaminophen Level < 2 mcg/ml (10-30) Acetaminophen Last Dose Date Unknown Acetaminophen Last Dose Time Unknown Ethyl Alcohol Level < 10 mg/dL (0-10) Ammonia 22 mcmol/L (11-34) Glucose (Fingerstick) 135 mg/dL (70-99) Results All relevant outside records, renal labs, imaging studies, telemetry/EKG's were reviewed. JEAN PAUL CESPEDES MD Aug 31, 2019 09:27
--- NOTE | 2019-08-31 09:37 | PDOC ---
PROGRESS NOTES Assessment Problems Medical Problems: (1) Acute respiratory failure with hypoxia Status: Acute (2) Altered mental status Status: Acute (3) Chronic pain syndrome Status: Chronic (4) End stage chronic kidney disease Status: Acute Toxic encephalopathy related to narcotics, resolved Chronic pain Depression and other psychiatric problems. It turns out HE DOES NOT HAVE LUNG CANCER Plan OKAY for discharge PER Pain management, Subjective No complaints, wants to go home, pain 5/10 Objective Vital Signs Date Time Temp Pulse Resp B/P (MAP) Pulse Ox O2 Delivery O2 Flow Rate FiO2 08/31/19 09:00 81 14 154/73 (100) 96 Nasal Cannula 2.0 08/31/19 08:00 98.8 98.8 Intake and Output 08/31/19 07:00 Intake Total 0 ml Balance 0 ml Intake Oral 0 ml PHYSICAL EXAM Alert. Oriented to time, place and person. PERRL. EOMI. CN: no focal findings. Muscle tone: normal. Muscle strength: 4/5 DTR: 1+ Plantar reflex: flexor Gait: not examined in bed. Sensory exam: no abnormal findings. No cerebellar signs elicited. Review of Relevant I have reviewed the following items nelda (where applicable) has been applied. Labs Laboratory Tests Test 08/30/19 11:45 08/30/19 12:07 08/30/19 17:30 08/31/19 05:00 White Blood Count 9.6 x10^3/uL (4.0-11.0) 6.3 x10^3/uL (4.0-11.0) Red Blood Count 3.35 x10^6/uL (4.30-5.70) 3.39 x10^6/uL (4.30-5.70) Hemoglobin 10.8 g/dL (13.0-17.5) 10.9 g/dL (13.0-17.5) Hematocrit 31.7 % (39.0-53.0) 32.2 % (39.0-53.0) Mean Corpuscular Volume 95 fL (79-100) 95 fL (79-100) Mean Corpuscular Hemoglobin 32 pg (25-35) 32 pg (25-35) Mean Corpuscular Hemoglobin Concent 34 g/dL (31-37) 34 g/dL (31-37) Red Cell Distribution Width 14.6 % (11.5-14.5) 14.7 % (11.5-14.5) Platelet Count 185 x10^3/uL (140-400) 181 x10^3/uL (140-400) Neutrophils (%) (Auto) 77 % (31-73) 53 % (31-73) Lymphocytes (%) (Auto) 13 % (24-48) 33 % (24-48) Monocytes (%) (Auto) 9 % (0-9) 11 % (0-9) Eosinophils (%) (Auto) 2 % (0-3) 3 % (0-3) Basophils (%) (Auto) 0 % (0-3) 0 % (0-3) Neutrophils # (Auto) 7.3 x10^3/uL (1.8-7.7) 3.4 x10^3/uL (1.8-7.7) Lymphocytes # (Auto) 1.2 x10^3/uL (1.0-4.8) 2.1 x10^3/uL (1.0-4.8) Monocytes # (Auto) 0.8 x10^3/uL (0.0-1.1) 0.7 x10^3/uL (0.0-1.1) Eosinophils # (Auto) 0.1 x10^3/uL (0.0-0.7) 0.2 x10^3/uL (0.0-0.7) Basophils # (Auto) 0.0 x10^3/uL (0.0-0.2) 0.0 x10^3/uL (0.0-0.2) Sodium Level 131 mmol/L (136-145) 136 mmol/L (136-145) Potassium Level 5.3 mmol/L (3.5-5.1) 4.2 mmol/L (3.5-5.1) Chloride Level 95 mmol/L (98-107) 98 mmol/L (98-107) Carbon Dioxide Level 23 mmol/L (21-32) 29 mmol/L (21-32) Anion Gap 13 (6-14) 9 (6-14) Blood Urea Nitrogen 76 mg/dL (8-26) 50 mg/dL (8-26) Creatinine 8.5 mg/dL (0.7-1.3) 6.8 mg/dL (0.7-1.3) Estimated GFR (Cockcroft-Gault) 6.7 8.6 BUN/Creatinine Ratio 9 (6-20) 7 (6-20) Glucose Level 241 mg/dL (70-99) 93 mg/dL (70-99) Calcium Level 8.8 mg/dL (8.5-10.1) 8.7 mg/dL (8.5-10.1) Total Bilirubin 0.5 mg/dL (0.2-1.0) 0.4 mg/dL (0.2-1.0) Aspartate Amino Transf (AST/SGOT) 20 U/L (15-37) 21 U/L (15-37) Alanine Aminotransferase (ALT/SGPT) 20 U/L (16-63) 17 U/L (16-63) Alkaline Phosphatase 149 U/L (46-116) 146 U/L (46-116) Total Protein 7.6 g/dL (6.4-8.2) 7.5 g/dL (6.4-8.2) Albumin 3.1 g/dL (3.4-5.0) 2.9 g/dL (3.4-5.0) Albumin/Globulin Ratio 0.7 (1.0-1.7) 0.6 (1.0-1.7) Acetaminophen Level < 2 mcg/ml (10-30) Acetaminophen Last Dose Date Unknown Acetaminophen Last Dose Time Unknown Ethyl Alcohol Level < 10 mg/dL (0-10) Ammonia 22 mcmol/L (11-34) Glucose (Fingerstick) 135 mg/dL (70-99) Laboratory Tests Test 08/30/19 11:45 08/30/19 12:07 08/30/19 17:30 08/31/19 05:00 White Blood Count 9.6 x10^3/uL (4.0-11.0) 6.3 x10^3/uL (4.0-11.0) Red Blood Count 3.35 x10^6/uL (4.30-5.70) 3.39 x10^6/uL (4.30-5.70) Hemoglobin 10.8 g/dL (13.0-17.5) 10.9 g/dL (13.0-17.5) Hematocrit 31.7 % (39.0-53.0) 32.2 % (39.0-53.0) Mean Corpuscular Volume 95 fL (79-100) 95 fL (79-100) Mean Corpuscular Hemoglobin 32 pg (25-35) 32 pg (25-35) Mean Corpuscular Hemoglobin Concent 34 g/dL (31-37) 34 g/dL (31-37) Red Cell Distribution Width 14.6 % (11.5-14.5) 14.7 % (11.5-14.5) Platelet Count 185 x10^3/uL (140-400) 181 x10^3/uL (140-400) Neutrophils (%) (Auto) 77 % (31-73) 53 % (31-73) Lymphocytes (%) (Auto) 13 % (24-48) 33 % (24-48) Monocytes (%) (Auto) 9 % (0-9) 11 % (0-9) Eosinophils (%) (Auto) 2 % (0-3) 3 % (0-3) Basophils (%) (Auto) 0 % (0-3) 0 % (0-3) Neutrophils # (Auto) 7.3 x10^3/uL (1.8-7.7) 3.4 x10^3/uL (1.8-7.7) Lymphocytes # (Auto) 1.2 x10^3/uL (1.0-4.8) 2.1 x10^3/uL (1.0-4.8) Monocytes # (Auto) 0.8 x10^3/uL (0.0-1.1) 0.7 x10^3/uL (0.0-1.1) Eosinophils # (Auto) 0.1 x10^3/uL (0.0-0.7) 0.2 x10^3/uL (0.0-0.7) Basophils # (Auto) 0.0 x10^3/uL (0.0-0.2) 0.0 x10^3/uL (0.0-0.2) Sodium Level 131 mmol/L (136-145) 136 mmol/L (136-145) Potassium Level 5.3 mmol/L (3.5-5.1) 4.2 mmol/L (3.5-5.1) Chloride Level 95 mmol/L (98-107) 98 mmol/L (98-107) Carbon Dioxide Level 23 mmol/L (21-32) 29 mmol/L (21-32) Anion Gap 13 (6-14) 9 (6-14) Blood Urea Nitrogen 76 mg/dL (8-26) 50 mg/dL (8-26) Creatinine 8.5 mg/dL (0.7-1.3) 6.8 mg/dL (0.7-1.3) Estimated GFR (Cockcroft-Gault) 6.7 8.6 BUN/Creatinine Ratio 9 (6-20) 7 (6-20) Glucose Level 241 mg/dL (70-99) 93 mg/dL (70-99) Calcium Level 8.8 mg/dL (8.5-10.1) 8.7 mg/dL (8.5-10.1) Total Bilirubin 0.5 mg/dL (0.2-1.0) 0.4 mg/dL (0.2-1.0) Aspartate Amino Transf (AST/SGOT) 20 U/L (15-37) 21 U/L (15-37) Alanine Aminotransferase (ALT/SGPT) 20 U/L (16-63) 17 U/L (16-63) Alkaline Phosphatase 149 U/L (46-116) 146 U/L (46-116) Total Protein 7.6 g/dL (6.4-8.2) 7.5 g/dL (6.4-8.2) Albumin 3.1 g/dL (3.4-5.0) 2.9 g/dL (3.4-5.0) Albumin/Globulin Ratio 0.7 (1.0-1.7) 0.6 (1.0-1.7) Acetaminophen Level < 2 mcg/ml (10-30) Acetaminophen Last Dose Date Unknown Acetaminophen Last Dose Time Unknown Ethyl Alcohol Level < 10 mg/dL (0-10) Ammonia 22 mcmol/L (11-34) Glucose (Fingerstick) 135 mg/dL (70-99) Medications Current Medications Naloxone HCl 2 mg/ Dextrose 502 ml @ 0 mls/hr 1X ONCE IV ; Start 08/30/19 at 10:45; Stop 08/30/19 at 10:46; Status DC Naloxone HCl (Narcan) 2 mg 1X ONCE IV Last administered on 08/30/19at 11:30; Start 08/30/19 at 10:45; Stop 08/30/19 at 10:46; Status DC Haloperidol Lactate (Haldol Inj) 5 mg 1X ONCE IVP Last administered on 08/30/19at 11:50; Start 08/30/19 at 11:45; Stop 08/30/19 at 11:46; Status DC Ondansetron HCl (Zofran) 4 mg PRN Q8HRS PRN IV NAUSEA/VOMITING; Start 08/30/19 at 12:30; Stop 08/31/19 at 12:29 Sodium Chloride 1,000 ml @ 1,000 mls/hr Q1H PRN IV hypotension; Start 08/30/19 at 14:00; Stop 08/30/19 at 19:59; Status DC Info (PHARMACY MONITORING -- do not chart) 1 each PRN DAILY PRN MC SEE COMMENTS; Start 08/30/19 at 16:30; Status UNV Info (PHARMACY MONITORING -- do not chart) 1 each PRN DAILY PRN MC SEE COMMENTS; Start 08/30/19 at 16:30 Insulin Human Lispro (HumaLOG) 0-9 UNITS TIDWMEALS SQ ; Start 08/30/19 at 17:00 Dextrose (Dextrose 50%-Water Syringe) 12.5 gm PRN Q15MIN PRN IV SEE COMMENTS; Start 08/30/19 at 17:00 Active Scripts Active Percocet 10-325 Mg Tablet (Oxycodone/Acetaminophen) 1 Each Tablet 1 Tab PO DAILY PRN 20 Days Reported Cyclobenzaprine Hcl 10 Mg Tablet 1 Tab PO TID Ativan (Lorazepam) 0.5 Mg Tablet 0.5 Mg PO Q6HRS Novolog (Insulin Aspart) 100 Unit/1 Ml Cartridge 100 Unit SQ TID Vitamin D3 (Cholecalciferol (Vitamin D3)) 5,000 Unit Tablet 1 Tab PO DAILY Ranexa (Ranolazine) 1,000 Mg Tab.er.12h 1 Tab PO DAILY Seroquel (Quetiapine Fumarate) 100 Mg Tablet 1 Tab PO QHS Prazosin Hcl 2 Mg Capsule 1 Cap PO QHS Protonix (Pantoprazole Sodium) 20 Mg Tablet.dr 40 Mg PO DAILY NITROGLYCERIN SubLingual (Nitroglycerin) 0.4 Mg Tab.subl 0.4 Mg SL PRN Q5MIN PRN Docusate Sodium 100 Mg Capsule 1 Cap PO DAILY Divalproex Sodium 500 Mg Tablet.dr 2 Tab PO BID Aspirin 81 Mg Tab.chew 1 Tab PO DAILY Amitiza (Lubiprostone) 24 Mcg Capsule 1 Cap PO DAILY Ventolin Hfa Inhaler (Albuterol Sulfate) 18 Gm Hfa.aer.ad 2 Puff INH PRN Q4HRS Norvasc (Amlodipine Besylate) 10 Mg Tablet 10 Mg PO DAILY Lipitor (Atorvastatin Calcium) 80 Mg Tablet 80 Mg PO HS Coreg (Carvedilol) 25 Mg Tablet 25 Mg PO BIDWMEALS Citalopram Hbr (Citalopram Hydrobromide) 40 Mg Tablet 40 Mg PO DAILY Renal Caps Softgel (Folic Acid/Vitamin B Comp W-C) 1 Mg Capsule 1 Cap PO DAILY Furosemide 80 Mg Tablet 80 Mg PO DAILY Neurontin (Gabapentin) 300 Mg Capsule 300 Mg PO TID Lisinopril 40 Mg Tablet 40 Mg PO DAILY Metolazone 5 Mg Tablet 5 Mg PO DAILY Protonix (Pantoprazole Sodium) 20 Mg Tablet.dr 40 Mg PO DAILY Renvela (Sevelamer Carbonate) 800 Mg Tablet 800 Mg PO TIDWMEALS Trazodone Hcl 300 Mg Tablet 300 Mg PO HS Tresiba Flextouch U-100 (Insulin Degludec) 100 Unit/1 Ml Insuln.pen 42 Unit SQ HS Vitals/I & O Vital Sign - Last 24 Hours 08/30/19 08/30/19 08/30/19 08/30/19 10:36 11:00 11:30 12:00 Temp 99.1 99.1 Pulse 87 80 78 78 Resp 16 16 16 16 B/P (MAP) 186/90 (122) Pulse Ox 99 99 99 99 O2 Delivery Nasal Cannula O2 Flow Rate 4.0 08/30/19 08/30/19 08/30/19 08/30/19 12:20 13:00 13:00 14:00 Temp 98.0 98.0 Pulse 72 83 74 Resp 18 17 12 B/P (MAP) 177/68 (104) 122/55 (77) Pulse Ox 99 95 96 O2 Delivery Nasal Cannula Nasal Cannula Nasal Cannula O2 Flow Rate 3.0 3.0 3.0 10/31/19 10/31/19 10/31/19 10/31/19 15:00 16:00 16:00 17:00 Temp 98.2 98.2 Pulse 74 74 78 Resp 12 16 13 B/P (MAP) 127/57 (80) 128/60 (82) 110/58 (75) Pulse Ox 96 96 97 O2 Delivery Nasal Cannula Nasal Cannula Nasal Cannula Nasal Cannula O2 Flow Rate 3.0 3.0 3.0 3.0 08/30/19 08/30/19 08/30/19 08/30/19 18:00 19:00 20:00 20:00 Temp 98.4 98.4 Pulse 78 75 75 Resp 12 12 14 B/P (MAP) 89/49 (62) 117/57 (77) 113/55 (74) Pulse Ox 98 96 97 O2 Delivery Nasal Cannula Nasal Cannula Nasal Cannula Nasal Cannula O2 Flow Rate 3.0 3.0 3.0 3.0 08/30/19 08/30/19 08/30/19 08/30/19 21:00 22:00 23:00 23:59 Pulse 80 74 74 Resp 12 12 14 B/P (MAP) 127/65 (85) 99/55 (70) 92/61 (71) Pulse Ox 96 97 97 O2 Delivery Nasal Cannula Nasal Cannula Nasal Cannula Nasal Cannula O2 Flow Rate 3.0 3.0 3.0 3.0 08/31/19 08/31/19 08/31/19 08/31/19 00:01 01:00 02:00 03:00 Temp 98.5 98.5 Pulse 72 70 72 73 Resp 14 12 13 14 B/P (MAP) 139/63 (88) 94/44 (61) 118/55 (76) 114/60 (78) Pulse Ox 97 97 97 96 O2 Delivery Nasal Cannula Nasal Cannula Nasal Cannula Nasal Cannula O2 Flow Rate 3.0 3.0 3.0 3.0 08/31/19 08/31/19 08/31/19 08/31/19 04:00 04:00 05:00 06:00 Temp 98.5 98.5 Pulse 75 76 76 Resp 15 18 16 B/P (MAP) 121/76 (91) 125/60 (81) 123/59 (80) Pulse Ox 97 96 96 O2 Delivery Nasal Cannula Nasal Cannula Nasal Cannula Nasal Cannula O2 Flow Rate 3.0 3.0 2.0 2.0 08/31/19 08/31/19 08/31/19 08/31/19 07:00 07:56 08:00 09:00 Temp 98.8 98.8 Pulse 75 76 81 Resp 16 14 14 B/P (MAP) 115/59 (77) 135/66 (89) 154/73 (100) Pulse Ox 96 97 96 O2 Delivery Nasal Cannula Nasal Cannula Nasal Cannula Nasal Cannula O2 Flow Rate 2.0 2.0 2.0 2.0 Intake and Output 08/30/19 08/30/19 08/31/19 15:00 23:00 07:00 Intake Total 0 ml 0 ml 0 ml Balance 0 ml 0 ml 0 ml MARILUZ ALAN MD Aug 31, 2019 09:37
--- NOTE | 2019-08-31 09:48 | PDOC ---
PROGRESS NOTES Subjective Subjective pt wide awake ,making regular conversation Objective Objective Vital Signs Date Time Temp Pulse Resp B/P (MAP) Pulse Ox O2 Delivery O2 Flow Rate FiO2 08/31/19 09:00 81 14 154/73 (100) 96 Nasal Cannula 2.0 08/31/19 08:00 98.8 98.8 Intake and Output 08/31/19 07:00 Intake Total 0 ml Balance 0 ml Intake Oral 0 ml Physical Exam Abdomen: Normal bowel sounds, Soft Heart: Regular rate, Normal S1, Normal S2 Extremities: No clubbing General: Alert, Oriented X3, Cooperative Lungs: Clear to auscultation MUSCULOSKELETAL: No swelling, Osteoarthritic changes both hands Neck: Supple Neuro: Normal speech Psych/Mental Status: Mental status NL Skin: No breakdown Diagnosis Problem List Problems Medical Problems: (1) Acute respiratory failure with hypoxia Status: Acute (2) Altered mental status Status: Acute (3) Chronic pain syndrome Status: Chronic (4) End stage chronic kidney disease Status: Acute Assessment Assessment Problems Medical Problems: (1) Acute respiratory failure with hypoxia Status: Acute (2) Altered mental status Status: Acute (3) Chronic pain syndrome Status: Chronic (4) End stage chronic kidney disease Status: Acute FINAL IMPRESSION: 1. Change in mental status, obtunded state secondary to narcotic overdose. 2. Chronic pain syndrome. The patient is on hospice. 3. End-stage renal disease, on hemodialysis. 4. Coronary artery disease, status post bypass surgery. 5. Chronic congestive heart failure. 6. Chronic coronary artery disease. 7. Depression. 8. History of previous hip fracture from fall, left femoral fracture, had surgeries done for that. PLAN: neuro improved back to base line dialized yesterday. d/c home later today d/c morphine at home. pt/ot today. At this time, the patient is on dialysis, getting dialyzed today, seen by Neurology, was given dose of Haldol for agitation and we will see how the patient's condition improves in the next 24-48 hours. Pain Clinic was consulted. Palliative team was also consulted to help with process. Plan Plan of Care Problems Medical Problems: (1) Acute respiratory failure with hypoxia Status: Acute (2) Altered mental status Status: Acute (3) Chronic pain syndrome Status: Chronic (4) End stage chronic kidney disease Status: Acute Comment Review of Relevant I have reviewed the following items nelda (where applicable) has been applied. Labs Laboratory Tests Test 08/30/19 11:45 08/30/19 12:07 08/30/19 17:30 08/31/19 05:00 White Blood Count 9.6 x10^3/uL (4.0-11.0) 6.3 x10^3/uL (4.0-11.0) Red Blood Count 3.35 x10^6/uL (4.30-5.70) 3.39 x10^6/uL (4.30-5.70) Hemoglobin 10.8 g/dL (13.0-17.5) 10.9 g/dL (13.0-17.5) Hematocrit 31.7 % (39.0-53.0) 32.2 % (39.0-53.0) Mean Corpuscular Volume 95 fL (79-100) 95 fL (79-100) Mean Corpuscular Hemoglobin 32 pg (25-35) 32 pg (25-35) Mean Corpuscular Hemoglobin Concent 34 g/dL (31-37) 34 g/dL (31-37) Red Cell Distribution Width 14.6 % (11.5-14.5) 14.7 % (11.5-14.5) Platelet Count 185 x10^3/uL (140-400) 181 x10^3/uL (140-400) Neutrophils (%) (Auto) 77 % (31-73) 53 % (31-73) Lymphocytes (%) (Auto) 13 % (24-48) 33 % (24-48) Monocytes (%) (Auto) 9 % (0-9) 11 % (0-9) Eosinophils (%) (Auto) 2 % (0-3) 3 % (0-3) Basophils (%) (Auto) 0 % (0-3) 0 % (0-3) Neutrophils # (Auto) 7.3 x10^3/uL (1.8-7.7) 3.4 x10^3/uL (1.8-7.7) Lymphocytes # (Auto) 1.2 x10^3/uL (1.0-4.8) 2.1 x10^3/uL (1.0-4.8) Monocytes # (Auto) 0.8 x10^3/uL (0.0-1.1) 0.7 x10^3/uL (0.0-1.1) Eosinophils # (Auto) 0.1 x10^3/uL (0.0-0.7) 0.2 x10^3/uL (0.0-0.7) Basophils # (Auto) 0.0 x10^3/uL (0.0-0.2) 0.0 x10^3/uL (0.0-0.2) Sodium Level 131 mmol/L (136-145) 136 mmol/L (136-145) Potassium Level 5.3 mmol/L (3.5-5.1) 4.2 mmol/L (3.5-5.1) Chloride Level 95 mmol/L (98-107) 98 mmol/L (98-107) Carbon Dioxide Level 23 mmol/L (21-32) 29 mmol/L (21-32) Anion Gap 13 (6-14) 9 (6-14) Blood Urea Nitrogen 76 mg/dL (8-26) 50 mg/dL (8-26) Creatinine 8.5 mg/dL (0.7-1.3) 6.8 mg/dL (0.7-1.3) Estimated GFR (Cockcroft-Gault) 6.7 8.6 BUN/Creatinine Ratio 9 (6-20) 7 (6-20) Glucose Level 241 mg/dL (70-99) 93 mg/dL (70-99) Calcium Level 8.8 mg/dL (8.5-10.1) 8.7 mg/dL (8.5-10.1) Total Bilirubin 0.5 mg/dL (0.2-1.0) 0.4 mg/dL (0.2-1.0) Aspartate Amino Transf (AST/SGOT) 20 U/L (15-37) 21 U/L (15-37) Alanine Aminotransferase (ALT/SGPT) 20 U/L (16-63) 17 U/L (16-63) Alkaline Phosphatase 149 U/L (46-116) 146 U/L (46-116) Total Protein 7.6 g/dL (6.4-8.2) 7.5 g/dL (6.4-8.2) Albumin 3.1 g/dL (3.4-5.0) 2.9 g/dL (3.4-5.0) Albumin/Globulin Ratio 0.7 (1.0-1.7) 0.6 (1.0-1.7) Acetaminophen Level < 2 mcg/ml (10-30) Acetaminophen Last Dose Date Unknown Acetaminophen Last Dose Time Unknown Ethyl Alcohol Level < 10 mg/dL (0-10) Ammonia 22 mcmol/L (11-34) Glucose (Fingerstick) 135 mg/dL (70-99) Medications Current Medications Dextrose (Dextrose 50%-Water Syringe) 12.5 gm PRN Q15MIN PRN IV SEE COMMENTS; Start 08/30/19 at 17:00 Haloperidol Lactate (Haldol Inj) 5 mg 1X ONCE IVP Last administered on 08/30/19at 11:50; Start 08/30/19 at 11:45; Stop 08/30/19 at 11:46; Status DC Info (PHARMACY MONITORING -- do not chart) 1 each PRN DAILY PRN MC SEE COMMENTS; Start 08/30/19 at 16:30 Info (PHARMACY MONITORING -- do not chart) 1 each PRN DAILY PRN MC SEE COMMENTS; Start 08/30/19 at 16:30; Status UNV Insulin Human Lispro (HumaLOG) 0-9 UNITS TIDWMEALS SQ ; Start 08/30/19 at 17:00 Naloxone HCl (Narcan) 2 mg 1X ONCE IV Last administered on 08/30/19at 11:30; Start 08/30/19 at 10:45; Stop 08/30/19 at 10:46; Status DC Naloxone HCl 2 mg/ Dextrose 502 ml @ 0 mls/hr 1X ONCE IV ; Start 08/30/19 at 10:45; Stop 08/30/19 at 10:46; Status DC Ondansetron HCl (Zofran) 4 mg PRN Q8HRS PRN IV NAUSEA/VOMITING; Start 08/30/19 at 12:30; Stop 08/31/19 at 12:29 Sodium Chloride 1,000 ml @ 1,000 mls/hr Q1H PRN IV hypotension; Start 08/30/19 at 14:00; Stop 08/30/19 at 19:59; Status DC Vitals/I & O Vital Sign - Last 24 Hours 08/30/19 08/30/19 08/30/19 08/30/19 10:36 11:00 11:30 12:00 Temp 99.1 99.1 Pulse 87 80 78 78 Resp 16 16 16 16 B/P (MAP) 186/90 (122) Pulse Ox 99 99 99 99 O2 Delivery Nasal Cannula O2 Flow Rate 4.0 08/30/19 08/30/19 08/30/19 08/30/19 12:20 13:00 13:00 14:00 Temp 98.0 98.0 Pulse 72 83 74 Resp 18 17 12 B/P (MAP) 177/68 (104) 122/55 (77) Pulse Ox 99 95 96 O2 Delivery Nasal Cannula Nasal Cannula Nasal Cannula O2 Flow Rate 3.0 3.0 3.0 08/30/19 08/30/19 08/30/19 08/30/19 15:00 16:00 16:00 17:00 Temp 98.2 98.2 Pulse 74 74 78 Resp 12 16 13 B/P (MAP) 127/57 (80) 128/60 (82) 110/58 (75) Pulse Ox 96 96 97 O2 Delivery Nasal Cannula Nasal Cannula Nasal Cannula Nasal Cannula O2 Flow Rate 3.0 3.0 3.0 3.0 08/30/19 08/30/19 08/30/19 08/30/19 18:00 19:00 20:00 20:00 Temp 98.4 98.4 Pulse 78 75 75 Resp 12 12 14 B/P (MAP) 89/49 (62) 117/57 (77) 113/55 (74) Pulse Ox 98 96 97 O2 Delivery Nasal Cannula Nasal Cannula Nasal Cannula Nasal Cannula O2 Flow Rate 3.0 3.0 3.0 3.0 08/30/19 08/30/19 08/30/19 08/30/19 21:00 22:00 23:00 23:59 Pulse 80 74 74 Resp 12 12 14 B/P (MAP) 127/65 (85) 99/55 (70) 92/61 (71) Pulse Ox 96 97 97 O2 Delivery Nasal Cannula Nasal Cannula Nasal Cannula Nasal Cannula O2 Flow Rate 3.0 3.0 3.0 3.0 08/31/19 08/31/19 08/31/19 08/31/19 00:01 01:00 02:00 03:00 Temp 98.5 98.5 Pulse 72 70 72 73 Resp 14 12 13 14 B/P (MAP) 139/63 (88) 94/44 (61) 118/55 (76) 114/60 (78) Pulse Ox 97 97 97 96 O2 Delivery Nasal Cannula Nasal Cannula Nasal Cannula Nasal Cannula O2 Flow Rate 3.0 3.0 3.0 3.0 08/31/19 08/31/19 08/31/19 08/31/19 04:00 04:00 05:00 06:00 Temp 98.5 98.5 Pulse 75 76 76 Resp 15 18 16 B/P (MAP) 121/76 (91) 125/60 (81) 123/59 (80) Pulse Ox 97 96 96 O2 Delivery Nasal Cannula Nasal Cannula Nasal Cannula Nasal Cannula O2 Flow Rate 3.0 3.0 2.0 2.0 08/31/19 08/31/19 08/31/19 08/31/19 07:00 07:56 08:00 09:00 Temp 98.8 98.8 Pulse 75 76 81 Resp 16 14 14 B/P (MAP) 115/59 (77) 135/66 (89) 154/73 (100) Pulse Ox 96 97 96 O2 Delivery Nasal Cannula Nasal Cannula Nasal Cannula Nasal Cannula O2 Flow Rate 2.0 2.0 2.0 2.0 Intake and Output 0 08/30/19 08/30/19 08/31/19 15:00 23:00 07:00 Intake Total 0 ml 0 ml 0 ml Balance 0 ml 0 ml 0 ml SELENA SALCIDO MD Aug 31, 2019 09:48
[2019-08-31] MEDS ORDERED: DOXY100C2 PO (09:52)
--- NOTE | 2019-08-31 10:20 | RAD ---
PORTABLE CHEST 1V History: Congestion. Cough. Comparison: July 16, 2019 Findings: Left basilar linear atelectasis or scarring, unchanged. No pneumothorax. No pleural effusion. Unchanged heart size. Prior median sternotomy. Impression: 1. Unchanged left basilar linear atelectasis or scarring. Electronically signed by: Joss Maldonado DO (08/31/2019 10:17 AM) [facility]
[2019-08-31] MEDS ORDERED: FLU VAX QS 2019-20 (36MOS+)/PF 0.5 ML SYRINGE. VAX IM ONE (10:45)
--- NOTE | 2019-08-31 12:47 | NUR ---
1130: Sonia, RN from [facility] here to see patient. Sonia mentioned to this RN that patient's hospice meds needs to be changed around- this RN told Sonia to refer to patient's primary doctor who has handled previous hospice meds. 1245: Pt med list provided by patient's faxed to Sonia at [facility]
--- NOTE | 2019-08-31 12:55 | NUR ---
SS following for discharge planning. SS reviewed pt chart. Pt is from home with spouse and is currently requiring oxygen. Pt has outpatient dialysis chair time in the community at [facility], ; fax [phone], T, TH, SAT at 1045. [facility] reported that he began services with them on 08/28/2019, and previous to that was being seen at [facility]. Pt has has previous services with [facility], ; fax [phone]. SS will continue to follow for discharge planning.
--- NOTE | 2019-09-03 21:56 | PDOC ---
Provider Note Provider Note discharge summary dictated.#[id number] SELENA SALCIDO MD Sep 03, 2019 21:56
--- NOTE | 2019-09-04 01:05 | DS ---
DATE OF DISCHARGE: 08/31/2019 REASON FOR ADMISSION TO THE HOSPITAL: Unintentional accidental narcotic overdose. CONSULTATION: 1. Neurology Dr. Robertson. 2. Dr. Santamaria. PROCEDURES DONE: Hemodialysis. HOSPITAL COURSE: The patient is a 53-year-old male who had coronary artery disease, 5-vessel bypass surgery 3 years ago, also end-stage renal disease 4 years ago, on hemodialysis. He also has chronic pain syndrome, has been admitted to the hospice lately and he is getting morphine 20 mg and also Percocet. The patient was in pain. He took 20 mg of morphine along with 10 mg of Percocet given by his girlfriend or significant other. The patient was found to be unresponsive in the morning and with agonal respiration, paramedics were called, was given Narcan and the patient was initially restless and agitated on the way to the Emergency Room, he was given Haldol and the patient was admitted to the ICU and the patient was seen by Neurology and no further neuro workup was initiated. The patient was in the hospital a month ago, had a complete workup done including MRI and CT of the spine. The patient was hemodialyzed in the hospital. He was admitted to the ICU. By next day, he significantly improved back to his baseline and is able to make a conversation and after Physical Therapy had seen him, the patient was discharged. The patient was seen by pain control here and it was decided that he should not take morphine and to take his Percocet for pain control and continue outpatient dialysis. Discharged back to home with hospice care. FINAL DIAGNOSES: 1. Unintentional accidental narcotic overdose with morphine.on palliative care hospice. 2. End-stage heart disease, S/P CABG. 3. End-stage renal disease, on hemodialysis. 4. Anxiety, depression, bipolar. 5. Chronic pain syndrome. DISCHARGE MEDICATIONS: See MRAD for discharge medications. The patient is advised to avoid morphine. SELENA SALCIDO MD DR: [email or web address] JOB#: [id number] / [id number] FANTA
== END 2019-08-31 13:30 | disposition hospice, home (50) | DRG 917 ==
LOC: ER 10:36 → 1 WEST ICU 11:30
PROVIDERS: ADMIT Internal Medicine; ATTEND Internal Medicine
PROC: 5A1D70Z Performance of Urinary Filtration, Intermittent, Less than 6 Hours Per Day (ICD-10-PCS; principal; 2019-08-30)
DX: T40.2X1A Poisoning by other opioids, accidental (unintentional), initial encounter (principal); G92 Toxic encephalopathy; J96.01 Acute respiratory failure with hypoxia; N18.6 End stage renal disease; I13.2 Hypertensive heart and chronic kidney disease with heart failure and with stage 5 chronic kidney disease, or end stage renal disease; C34.90 Malignant neoplasm of unspecified part of unspecified bronchus or lung; E11.22 Type 2 diabetes mellitus with diabetic chronic kidney disease; E11.51 Type 2 diabetes mellitus with diabetic peripheral angiopathy without gangrene; E78.5 Hyperlipidemia, unspecified; F41.9 Anxiety disorder, unspecified; H91.93 Unspecified hearing loss, bilateral; Z51.5 Encounter for palliative care; G89.4 Chronic pain syndrome; I25.10 Atherosclerotic heart disease of native coronary artery without angina pectoris; F17.210 Nicotine dependence, cigarettes, uncomplicated; K21.9 Gastro-esophageal reflux disease without esophagitis; E11.42 Type 2 diabetes mellitus with diabetic polyneuropathy; I50.9 Heart failure, unspecified; F32.9 Major depressive disorder, single episode, unspecified; Z86.711 Personal history of pulmonary embolism; Z86.73 Personal history of transient ischemic attack (TIA), and cerebral infarction without residual deficits; Z99.2 Dependence on renal dialysis; Z99.81 Dependence on supplemental oxygen; Z95.1 Presence of aortocoronary bypass graft; Z91.81 History of falling; Z88.5 Allergy status to narcotic agent; Z87.81 Personal history of (healed) traumatic fracture; Z87.01 Personal history of pneumonia (recurrent); Y92.89 Other specified places as the place of occurrence of the external cause
CPT/HCPCS: 36415; 71045; 80053; 80329; 82140; 82962; 85025; 90471; 90686; 96374; 96375; G0480; J1630; J1815; J2310; 99285-25; G0378

== ENCOUNTER 2020-01-31 14:57 | Emergency (ER) | payer MEDICARE, OTHER ==
[~2020-01-31] VITALS: Ht 162.6 cm; Wt 114.0 kg
[~2020-01-31 14:57] MED LIST changes: +BUSP10TA PO; +BUSP5TAB PO; +DIPH25CA58 PO; +DOXY100C2 PO; +FURO40TA4 PO; +GABA400C7 PO; +HYDR-2763 PO; +HYDR-2868 PO; +HYDR4CRE3 TP; +INSU100I32 SQ; +INSU100V37 SQ; +LISI-334 PO; +LORA-434 PO; +LORA0.5T96 PO; +ONDA4TAB7 PO
[2020-01-31] MEDS ORDERED: IV NORMAL SALINE 250ML 250 ML IV ONE (15:30)
[2020-01-31 15:36] LABS: BASO % 0 % (0-3); EOS # 0.2 x10^3/uL (0.0-0.7); EOS % 2 % (0-3); HEMATOCRIT 38.4 % (39.0-53.0); LYMPH # 1.3 x10^3/uL (1.0-4.8); LYMPH % 18 % (24-48); MEAN CORPUSCULAR HEMOGLOBIN 31 pg (25-35); MEAN CORPUSCULAR HGB CONC 34 g/dL (31-37); MEAN CORPUSCULAR VOLUME 92 fL (79-100); MONO # 0.9 x10^3/uL (0.0-1.1); MONO % 13 % (0-9); NEUT % 67 % (31-73); PLATELET COUNT 194 x10^3/uL (140-400); RED BLOOD COUNT 4.19 x10^6/uL (4.30-5.70); RED CELL DISTRIBUTION WIDTH 14.3 % (11.5-14.5); WHITE BLOOD COUNT 7.5 x10^3/uL (4.0-11.0)
[2020-01-31 16:00] LABS: CALCIUM 8.8 mg/dL (8.5-10.1); CREATININE 4.6 mg/dL (0.7-1.3); GFR 13.5; POTASSIUM 4.3 mmol/L (3.5-5.1)
[2020-01-31 16:06] LABS: ALBUMIN 3.3 g/dL (3.4-5.0); ALBUMIN/GLOBULIN RATIO 0.7 (1.0-1.7); TOTAL BILIRUBIN 0.4 mg/dL (0.2-1.0); TOTAL PROTEIN 7.8 g/dL (6.4-8.2)
--- NOTE | 2020-01-31 16:09 | EKG ---
[facility] [address] [place] [address] Test Date: 2020-01-31 Test Time: 15:15:44 Pat Name: JULIAN GARCÍA Department: Room: Gender: M Senior [employer]: : 1965 Requested By: KENDRA TAYLOR Order Number: [id number] Reading MD: Measurements Intervals [place] Rate: 73 P: 26 DE: 174 QRS: -31 QRSD: 92 T: 133 QT: 390 QTc: 433 Interpretive Statements SINUS RHYTHM ABNORMAL LEFT AXIS DEVIATION R-S TRANSITION ZONE IN V LEADS DISPLACED TO THE LEFT LEFT ANTERIOR FASCICULAR BLOCK LVH WITH REPOLARIZATION ABNORMALITY ABNORMAL ECG RI6.01 No previous ECG available for comparison
[2020-01-31] MEDS: IV NORMAL SALINE 500ML BAG 250 ML IV ONE (16:12)
--- NOTE | 2020-01-31 17:05 | RAD ---
CT head without contrast: Reason for examination: Altered mental status. Comparison is made to previous study dated 01/16/2020. Helical images were obtained through the brain. No contrast was administered. Reconstruction was performed in coronal plane. Exposure: One or more of the following individualized dose reduction techniques were utilized for this examination: 1. Automated exposure control 2. Adjustment of the mA and/or kV according to patient size 3. Use of iterative reconstruction technique. Ventricular systems are prominent but symmetric and consistent with some generalized atrophy. There is unchanged. No midline shift is seen. There is no evidence of intracranial hemorrhage, infarct, mass or edema. No abnormalities of seen at the orbits. The paranasal sinuses and mastoid air cells are clear. No acute abnormality seen in the skull. IMPRESSION: Cerebral atrophy which is unchanged. No acute intracranial abnormality evident. Electronically signed by: Ginger Patricia MD (01/31/2020 5:01 PM) [id number]
--- NOTE | 2020-01-31 17:32 | PHYS DOC ---
Past Medical History Past Medical History: CHF, Diabetes-Type I, Heart Disease, Hypertension, Renal Disease Additional Past Medical Histor: dialysis, lung ca Past Surgical History: Cholecystectomy, Coronary Bypass Surgery Additional Past Surgical Histo: HERNIA Smoking Status: Current Every Day Smoker Alcohol Use: Occasionally Drug Use: None Adult General Chief Complaint Chief Complaint: ALTERED MENTAL STATUS HPI HPI Patient is a 54 year old male presenting to the ED with a chief complaint of altered mental status. Patient states that he had a full run of dialysis this morning. Patient decided he is a history of end-stage renal disease, diabetes, hypertension. Patient has presented to the ED with similar complaints in the past. Patient states that he was feeling well until this morning after the dialysis when he felt mildly disoriented. Currently patient is able to answer questions appropriately. Patient denies any chest pain or shortness of breath. Patient has presented with similar complaints in the past. Review of Systems Review of Systems EMS states that patient complains of altered mental status. Patient denies fever, chills, nausea, vomiting, diarrhea, dysuria, chest pain, abdominal pain. All other systems were reviewed and found to be within normal limits, except as documented in this note. Current Medications Current Medications Current Medications Medications (Trade) Dose Ordered Sig/Brittani Start Time Stop Time Status Last Admin Dose Admin Sodium Chloride 250 ml @ 250 mls/hr 1X ONCE 01/31/20 15:45 01/31/20 16:45 DC 01/31/20 16:12 250 MLS/HR Allergies Allergies Allergies Coded Allergies Type Severity Reaction Last Updated Verified hydromorphone Allergy Severe Anaphylaxis 07/16/19 Yes Physical Exam Physical Exam Constitutional: Well developed, well nourished, no acute distress, non-toxic appearance. [] HENT: Normocephalic, atraumatic Eyes: PERRLA, EOMI Neck: Normal range of motion Cardiovascular:Heart rate regular rhythm Lungs & Thorax: Bilateral rhonchi Abdomen: Soft, nontender, nondistended, no focal abdominal tenderness Extremities: No tenderness, ROM intact Neurologic: Alert and oriented X 3 Current Patient Data Vital Signs Vital Signs Date Time Temp Pulse Resp B/P (MAP) Pulse Ox O2 Delivery O2 Flow Rate FiO2 01/31/20 17:28 90 32 95 01/31/20 15:09 97.8 121/60 (80) Room Air 97.8 Lab Values Laboratory Tests Test 01/31/20 15:23 4/2/20 15:25 Glucose (Fingerstick) 294 mg/dL (70-99) H White Blood Count 7.5 x10^3/uL (4.0-11.0) Red Blood Count 4.19 x10^6/uL (4.30-5.70) L Hemoglobin 13.0 g/dL (13.0-17.5) Hematocrit 38.4 % (39.0-53.0) L Mean Corpuscular Volume 92 fL (79-100) Mean Corpuscular Hemoglobin 31 pg (25-35) Mean Corpuscular Hemoglobin Concent 34 g/dL (31-37) Red Cell Distribution Width 14.3 % (11.5-14.5) Platelet Count 194 x10^3/uL (140-400) Neutrophils (%) (Auto) 67 % (31-73) Lymphocytes (%) (Auto) 18 % (24-48) L Monocytes (%) (Auto) 13 % (0-9) H Eosinophils (%) (Auto) 2 % (0-3) Basophils (%) (Auto) 0 % (0-3) Neutrophils # (Auto) 5.0 x10^3/uL (1.8-7.7) Lymphocytes # (Auto) 1.3 x10^3/uL (1.0-4.8) Monocytes # (Auto) 0.9 x10^3/uL (0.0-1.1) Eosinophils # (Auto) 0.2 x10^3/uL (0.0-0.7) Basophils # (Auto) 0.0 x10^3/uL (0.0-0.2) Sodium Level 132 mmol/L (136-145) L Potassium Level 4.3 mmol/L (3.5-5.1) Chloride Level 96 mmol/L (98-107) L Carbon Dioxide Level 28 mmol/L (21-32) Anion Gap 8 (6-14) Blood Urea Nitrogen 34 mg/dL (8-26) H Creatinine 4.6 mg/dL (0.7-1.3) H Estimated GFR (Cockcroft-Gault) 13.5 BUN/Creatinine Ratio 7 (6-20) Glucose Level 280 mg/dL (70-99) H Lactic Acid Level 1.0 mmol/L (0.4-2.0) Calcium Level 8.8 mg/dL (8.5-10.1) Total Bilirubin 0.4 mg/dL (0.2-1.0) Aspartate Amino Transferase (AST) 14 U/L (15-37) L Alanine Aminotransferase (ALT) 18 U/L (16-63) Alkaline Phosphatase 139 U/L (46-116) H WT-Qwi-S-Type Natriuretic Peptide 46162 pg/mL (0-124) H Total Protein 7.8 g/dL (6.4-8.2) Albumin 3.3 g/dL (3.4-5.0) L Albumin/Globulin Ratio 0.7 (1.0-1.7) L Laboratory Tests 01/31/20 15:25 Laboratory Tests 01/31/20 15:25 EKG EKG EKG interpretation: HR: 73 Sinus rhythm Regular intervals Left axis deviation Nonspecific ST changes [] Radiology/Procedures Radiology/Procedures [] Course & Med Decision Making Course & Med Decision Making Pertinent Labs and Imaging studies reviewed. (See chart for details) CT head shows no acute disease. EKG shows no acute changes. I have given IV fluids to 150 mils Labs are within normal limits. Potassium is 4.3. Patient states that he is comfortable to be discharged home. Still awaiting UA results. I have discussed case with patient's and she is comfortable to take the patient home. She states that patient has been more weak for the past few days. Dragon Disclaimer Dragon Disclaimer This electronic medical record was generated, in whole or in part, using a voice recognition dictation system. Departure Departure Impression: Primary Impression: Altered mental status Disposition: HOME, SELF-CARE Condition: IMPROVED Referrals: UNKNOWN PCP NAME (PCP) Patient Instructions: Altered Mental Status KENDRA TAYLOR DO Jan 31, 2020 17:32
[2020-01-31 18:18] LABS: BILIRUBIN,URINE NEGATIVE (NEG); CLARITY,URINE CLEAR; COLOR,URINE YELLOW; NITRITE,URINE NEGATIVE (NEG); PROTEIN,URINE >=300 mg/dL (NEG-TRACE); UROBILINOGEN,URINE 0.2 mg/dL (0.2 mg/dL)
[2020-01-31 18:32] LABS: HYALINE CASTS, URINE MODERATE /HPF; SQUAMOUS EPITHELIAL CELL,UR FEW /LPF
[2020-01-31 18:33] LABS: BACTERIA,URINE 0 /HPF (0-FEW); WBC,URINE 0 /HPF (0-4)
[2020-01-31 18:34] VITALS: BP 179/71
[2020-01-31 18:34] LABS: AMORPHOUS SEDIMENT,UR PRESENT /HPF; WAXY CASTS,URINE OCCASIONAL /HPF
[2020-01-31 18:35] LABS: GRANULAR CASTS,URINE OCCASIONAL /HPF
== END 2020-01-31 19:04 | disposition home or self-care (01) ==
LOC: ER 14:57
DX: R41.82 Altered mental status, unspecified (principal); I11.0 Hypertensive heart disease with heart failure; I50.9 Heart failure, unspecified; E10.9 Type 1 diabetes mellitus without complications; N28.9 Disorder of kidney and ureter, unspecified; I11.9 Hypertensive heart disease without heart failure; F17.200 Nicotine dependence, unspecified, uncomplicated; Z90.49 Acquired absence of other specified parts of digestive tract; Z98.890 Other specified postprocedural states; Z85.118 Personal history of other malignant neoplasm of bronchus and lung; Z88.5 Allergy status to narcotic agent
CPT/HCPCS: 36415; 70450; 80053; 81001; 82962; 83605; 83880; 85025; 87040; 93005; 96360; 96361; 99285; J7040

== ENCOUNTER 2020-03-11 12:37 | Inpatient (IN) | payer MEDICARE, OTHER ==
[~2020-03-11] VITALS: Ht 190.5 cm; Wt 114.0 kg
[2020-03-11] MEDS ORDERED: NITROGLYCERIN SUBLINGUAL 0.4 MG BOTTLE OF 25. SL PRN ×3 (13:15→15:45)
--- NOTE | 2020-03-11 13:30 | RAD ---
EXAM: CHEST 1 VIEW History: Chest pain COMPARISON: 01/16/2020 TECHNIQUE: Single portable radiograph of the chest FINDINGS: Low lung volumes and technique accentuates heart size and pulmonary vascularity. Mild cardiomegaly. Linear left lung base airspace opacities likely atelectasis or infiltrate. IMPRESSION: Linear left lung base airspace opacity likely atelectasis or infiltrates. Electronically signed by: Axel Hunter MD (03/11/2020 1:27 PM) [id number]
[2020-03-11] MEDS: fentaNYL PF VIAL 100 MCG/2 ML VIAL IV PRN ×5 (13:38→23:01)
[2020-03-11 13:46] LABS: BASO % 0 % (0-3); EOS # 0.2 x10^3/uL (0.0-0.7); EOS % 2 % (0-3); HEMATOCRIT 33.7 % (39.0-53.0); HEMOGLOBIN 11.5 g/dL (13.0-17.5); LYMPH # 1.5 x10^3/uL (1.0-4.8); LYMPH % 19 % (24-48); MEAN CORPUSCULAR HEMOGLOBIN 32 pg (25-35); MEAN CORPUSCULAR HGB CONC 34 g/dL (31-37); MEAN CORPUSCULAR VOLUME 93 fL (79-100); MONO # 0.8 x10^3/uL (0.0-1.1); MONO % 9 % (0-9); NEUT # 5.7 x10^3/uL (1.8-7.7); NEUT % 69 % (31-73); PLATELET COUNT 227 x10^3/uL (140-400); RED BLOOD COUNT 3.64 x10^6/uL (4.30-5.70); RED CELL DISTRIBUTION WIDTH 14.1 % (11.5-14.5); WHITE BLOOD COUNT 8.2 x10^3/uL (4.0-11.0)
--- NOTE | 2020-03-11 13:49 | PHYS DOC ---
Past Medical History Past Medical History: CAD, CHF, Diabetes-Type II, Heart Disease, Hypertension, OR, Renal Disease, Renal Failure Additional Past Medical Histor: dialysis, lung ca Past Surgical History: Cholecystectomy, Coronary Bypass Surgery Additional Past Surgical Histo: HERNIA Smoking Status: Current Every Day Smoker Alcohol Use: Occasionally Drug Use: None General Adult EDM: Chief Complaint: CHEST PAIN HPI: HPI: Patient is a 54 year old male with history of CAD, hypertension, diabetes type 2, end-stage kidney disease on dialysis Tuesday who presents today from a dialysis center complaining of 10 out of 10 substernal chest pain radiating to his back that has been going on since 5 AM this morning. Patient describes the pain as sharp and intermittent. Denies any exacerbating or relieving factors. He also reports history of chronic upper back pain that he takes oxycodone for. He states he only had 1 hour run of dialysis today. Review of Systems: Review of Systems: Constitutional: Denies fever or chills. [] Eyes: Denies change in visual acuity. [] HENT: Denies nasal congestion or sore throat. [] Respiratory: Denies cough or shortness of breath. [] Cardiovascular: Reports substernal chest pain radiating to the back GI: Denies abdominal pain, nausea, vomiting, bloody stools or diarrhea. [] : Denies dysuria. [] Musculoskeletal: Denies back pain or joint pain. [] Integument: Denies rash. [] Neurologic: Denies headache, focal weakness or sensory changes. [] Endocrine: Denies polyuria or polydipsia. [] Lymphatic: Denies swollen glands. [] Psychiatric: Denies depression or anxiety. [] Heart Score: HEART Score for Chest Pain: HEART Score for Chest Pain Response (Comments) Value History Slighlty/Non-Suspicious 0 ECG Normal 0 Age >45 - < 65 1 Risk Factors >3 Risk Factors or Hx CAD 2 Troponin < Normal Limit 0 Total 3 Risk Factors: Risk Factors: DM, Current or recent (<one month) smoker, HTN, HLP, family history of CAD, obesity. Risk Scores: Score 0 - 3: 2.5% MACE over next 6 weeks - Discharge Home Score 4 - 6: 20.3% MACE over next 6 weeks - Admit for Clinical Observation Score 7 - 10: 72.7% MACE over next 6 weeks - Early Invasive Strategies Current Medications: Current Medications Medications (Trade) Dose Ordered Sig/Brittani Start Time Stop Time Status Last Admin Dose Admin Fentanyl Citrate (Fentanyl 2ml Vial) 50 mcg PRN Q15MIN PRN 03/11/20 13:15 03/12/20 13:14 03/11/20 13:38 50 MCG Nitroglycerin (Nitrostat) 0.4 mg PRN Q5MIN PRN 03/11/20 13:15 03/12/20 13:14 Allergies: Allergies: Allergies Coded Allergies Type Severity Reaction Last Updated Verified hydromorphone Allergy Severe Anaphylaxis 07/16/19 Yes Physical Exam: PE: Constitutional: Well developed, well nourished, no acute distress, non-toxic appearance. [] HENT: Normocephalic, atraumatic, bilateral external ears normal, oropharynx moist, no oral exudates, nose normal. [] Eyes: PERRLA, EOMI, conjunctiva normal, no discharge. [] Neck: Normal range of motion, no tenderness, supple, no stridor. [] Cardiovascular:Heart rate regular rhythm, no murmur [] Lungs & Thorax: Bilateral breath sounds clear to auscultation [] Abdomen: Bowel sounds normal, soft, no tenderness, no masses, no pulsatile masses. [] Skin: Warm, dry, no erythema, no rash. [] Back: No tenderness, no CVA tenderness. [] Extremities: No tenderness, no cyanosis, no clubbing, ROM intact, no edema. [] Neurologic: Alert and oriented X 3, normal motor function, normal sensory function, no focal deficits noted. [] Psychologic: Very conversational. Current Patient Data: Vital Signs: Vital Signs Date Time Temp Pulse Resp B/P (MAP) Pulse Ox O2 Delivery O2 Flow Rate FiO2 03/11/20 13:38 16 95 Nasal Cannula 3.0 03/11/20 12:37 98.3 72 129/64 (85) 98.3 EKG: EKG: [] Radiology/Procedures: Radiology/Procedures: []PROCEDURE: PORTABLE CHEST 1V EXAM: CHEST 1 VIEW History: Chest pain COMPARISON: 01/16/2020 TECHNIQUE: Single portable radiograph of the chest FINDINGS: Low lung volumes and technique accentuates heart size and pulmonary vascularity. Mild cardiomegaly. Linear left lung base airspace opacities likely atelectasis or infiltrate. IMPRESSION: Linear left lung base airspace opacity likely atelectasis or infiltrates. Electronically signed by: Axel Hunter MD (03/11/2020 1:27 PM) [id number] DICTATED and SIGNED BY: AXEL HUNTER MD DATE: 03/11/20 1327 Course & Med Decision Making: Course & Med Decision Making Pertinent Labs and Imaging studies reviewed. (See chart for details) This is a 54-year-old male patient presenting to the ED today complaining of substernal chest pain radiating to his back that began this morning at 5 AM. He was at dialysis this morning and had a 1 hour run before they brought him to the ED. Heart score 3 Labs negative for any acute findings. Chest x-ray noted for possible left lower lobe atelectasis or pneumonia. Patient was started on Rocephin and azithromycin. COVID19 test pending 1515 Spoke with Shamika BARRERA for cardiology who will f/u with patient Spoke with Dr. Dai and he was admitted Dragon Disclaimer: Neelima Disclaimer: This electronic medical record was generated, in whole or in part, using a voice recognition dictation system. Departure Departure Impression: Primary Impression: Chest pain Qualified Codes: R07.9 - Chest pain, unspecified Additional Impressions: Person under investigation for COVID-19 Infiltrate of left lung present on chest x-ray Disposition: ADMITTED INPATIENT Condition: STABLE Referrals: UNKNOWN PCP NAME (PCP) GONZALO WOO APRN March 11, 2020 13:49
[2020-03-11 14:02] LABS: CALCIUM 7.5 mg/dL (8.5-10.1); CREATININE 7.5 mg/dL (0.7-1.3); GFR 7.7; POTASSIUM 4.8 mmol/L (3.5-5.1)
[2020-03-11 14:07] LABS: ALBUMIN 2.9 g/dL (3.4-5.0); ALBUMIN/GLOBULIN RATIO 0.7 (1.0-1.7); MAGNESIUM 1.8 mg/dL (1.8-2.4); TOTAL BILIRUBIN 0.4 mg/dL (0.2-1.0); TOTAL PROTEIN 6.8 g/dL (6.4-8.2)
--- NOTE | 2020-03-11 14:21 | EKG ---
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
[2020-03-11 14:33] LABS: C-REACTIVE PROTEIN 2.5 mg/L (0-3.3)
[2020-03-11] MEDS ORDERED: cefTRIAXone IV Push 1 GM VIAL. IVP ONE (15:15)
[2020-03-11] MEDS ORDERED: ONDANSETRON PF 4 MG/2 ML VIAL. IV PRN (15:15)
[2020-03-11] MEDS ORDERED: ACETAMINOPHEN 325 MG TABLET. PO PRN (15:15)
[2020-03-11] MEDS ORDERED: fentaNYL PF VIAL 100 MCG/2 ML VIAL IV PRN (15:15)
[2020-03-11] MEDS ORDERED: AZITHRMYCN 500MG IVPB FOR OMNI 250 ML IV ONE (15:15)
--- NOTE | 2020-03-11 15:42 | PDOC2 ---
KALIN DIEHL OPENSTACK DEVELOPER 03/11/20 1542: CARDIAC CONSULT DATE OF CONSULT Date of Consult DATE: 03/11/20 TIME: 15:13 REASON FOR CONSULT Reason for Consult: Chest pain REFERRING PHYSICIAN Referring Physician: Edgar SOURCE Source: Chart review, Patient HISTORY OF PRESENT ILLNESS HISTORY OF PRESENT ILLNESS This is a 54 yo male admitted for complains of chest pain. He woke with nonproductive coughing spells. No excessive spicy and salty food the night before. He does have hiatal hernia and takes PPI. Reports that 5 AM this morning he was having intermittent sharp stabbing pain to mid chest just left to sternum and radiating to immediate back. He does have chronic back pain to which he takes PRN percocet. He went ahead to dialysis and ended up having only 1 hr session. His SBP also dropped in the 60s but no passing out. At that time time his pain was intense and again sharp. Presently denies any si gnificant discomfort. This is not associated with nausea or vomiting. No fever. No palpitations and no SOA. There has been no changes to his activity tolerance. Reports no falls or any recent injury and his cough is chronic and continues to smoke tobacco. His BP and BG are basically controlled at home. He verbalized compliance with his medications. He does see cardiology and has not seen em since last yr when he was hospitalized. Presently his pain is there still but minimal and still the same region. PAST MEDICAL HISTORY Past Medical History Cardiovascular: CAD, CHF, HTN, Hyperlipidemia, syncope Pulmonary: Bronchitis, Pulmonary embolus, Pneumonia, AMARJIT CENTRAL NERVOUS SYSTEM: CVA, Peripheral neuropathy, TBI GI: GERD, hiatal hernia Heme/Onc: Cancer Psych: Depression Renal/: ESRD Endocrine: Diabetes, Hyperparathyroidism PAST SURGICAL HISTORY Past Surgical History Cholecystectomy, CABG, Tonsillectomy, PD cath placement and removal, left arm fistula SOCIAL HISTORY Social History ALCOHOL: none Drugs: Lives: with Family CURRENT MEDICATIONS CURRENT MEDICATIONS Current Medications Medications (Trade) Dose Ordered Sig/Brittani Route PRN Reason Start Time Stop Time Status Last Admin Dose Admin Fentanyl Citrate (Fentanyl 2ml Vial) 50 mcg PRN Q15MIN PRN IV PAIN GREATER THAN 3/10 03/11/20 13:15 03/12/20 13:14 03/11/20 14:52 ALLERGIES ALLERGIES: Coded Allergies: hydromorphone (Verified Allergy, Severe, Anaphylaxis, 9/16/19) morphine ok ROS Review of System 14 point ROS evaluated with pertinent positives noted per HPI PHYSICAL EXAM General: Alert, Oriented X3, Cooperative, No acute distress HEENT: Atraumatic, Mucous membr. moist/pink Lungs: Clear to auscultation, Normal air movement Heart: Regular rate (SR), Normal S1, Normal S2, No murmurs Abdomen: Soft, No tenderness Extremities: No cyanosis, No edema Skin: No breakdown, No significant lesion Neuro: Normal speech, Sensation intact Psych/Mental Status: Mental status NL, Mood NL MUSCULOSKELETAL: Osteoarthritic changes both hands VITALS/I&O VITALS/I&O: Vital Signs Date Time Temp Pulse Resp B/P (MAP) Pulse Ox O2 Delivery O2 Flow Rate FiO2 03/11/20 14:52 18 95 Nasal Cannula 3.0 03/11/20 12:37 98.3 72 129/64 (85) 98.3 LABS Lab: Laboratory Tests Test 03/11/20 13:35 White Blood Count 8.2 x10^3/uL (4.0-11.0) Red Blood Count 3.64 x10^6/uL (4.30-5.70) L Hemoglobin 11.5 g/dL (13.0-17.5) L Hematocrit 33.7 % (39.0-53.0) L Mean Corpuscular Volume 93 fL (79-100) Mean Corpuscular Hemoglobin 32 pg (25-35) Mean Corpuscular Hemoglobin Concent 34 g/dL (31-37) Red Cell Distribution Width 14.1 % (11.5-14.5) Platelet Count 227 x10^3/uL (140-400) Neutrophils (%) (Auto) 69 % (31-73) Lymphocytes (%) (Auto) 19 % (24-48) L Monocytes (%) (Auto) 9 % (0-9) Eosinophils (%) (Auto) 2 % (0-3) Basophils (%) (Auto) 0 % (0-3) Neutrophils # (Auto) 5.7 x10^3/uL (1.8-7.7) Lymphocytes # (Auto) 1.5 x10^3/uL (1.0-4.8) Monocytes # (Auto) 0.8 x10^3/uL (0.0-1.1) Eosinophils # (Auto) 0.2 x10^3/uL (0.0-0.7) Basophils # (Auto) 0.0 x10^3/uL (0.0-0.2) Sodium Level 137 mmol/L (136-145) Potassium Level 4.8 mmol/L (3.5-5.1) Chloride Level 98 mmol/L (98-107) Carbon Dioxide Level 27 mmol/L (21-32) Anion Gap 12 (6-14) Blood Urea Nitrogen 62 mg/dL (8-26) H Creatinine 7.5 mg/dL (0.7-1.3) H Estimated GFR (Cockcroft-Gault) 7.7 BUN/Creatinine Ratio 8 (6-20) Glucose Level 106 mg/dL (70-99) H Calcium Level 7.5 mg/dL (8.5-10.1) L Magnesium Level 1.8 mg/dL (1.8-2.4) Ferritin 686 ng/mL (26-388) H Total Bilirubin 0.4 mg/dL (0.2-1.0) Aspartate Amino Transferase (AST) 18 U/L (15-37) Alanine Aminotransferase (ALT) 23 U/L (16-63) Alkaline Phosphatase 195 U/L (46-116) H Creatine Kinase 113 U/L (39-308) Creatine Kinase MB (Mass) 2.5 ng/mL (0.0-3.6) Creatine Kinase MB Relative Index 2.2 % (0-4) Troponin I Quantitative 0.024 ng/mL (0.000-0.055) C-Reactive Protein, Quantitative 2.5 mg/L (0-3.3) HU-Ylc-A-Type Natriuretic Peptide 6343 pg/mL (0-124) H Total Protein 6.8 g/dL (6.4-8.2) Albumin 2.9 g/dL (3.4-5.0) L Albumin/Globulin Ratio 0.7 (1.0-1.7) L Thyroid Stimulating Hormone (TSH) 1.658 uIU/mL (0.358-3.74) Laboratory Tests 03/11/20 13:35 Laboratory Tests 03/11/20 13:35 ECHOCARDIOGRAM ECHOCARDIOGRAM Technically difficult study due to poor visualization of cardiac structures and endocardial borders. In spite of Definity contrast difficult to comment on LV wall motion abnormalities with accuracy. * Normal Left Ventricular size and function. LVEF around 55 %. No segmental wall motion abnormalities on limited visualization * Normal Right Ventricular size and function. * Mild left atrial enlargement. * No significant valvular abnormalities. * No pericardial effusion. * PA pressure cannot be calculated from the study due to inadequate TR jet. Compared to previous study on 11/22/2018 no significant changes are noted. 07/04/19 - 2-D + DOPPLER ECHOCARDIOGRAM STRESS TEST STRESS TEST STRESS TEST 07/03/2019 Conclusion: Pharmacologic stress ECG is negative for ischemia. HEART CATH HEART CATH IMPRESSION: Significant 3-vessel poarch coronary artery disease as described above. Patent bypass grafts of the OG to LAD, venous graft to diagonal and obtuse marginal, and venous graft to distal RCA. Normal left ventricular end-diastolic and systolic pressures. No gradient across the aortic valve on pullback. 05/13/2017 5:07 PM ASSESSMENT/PLAN ASSESSMENT/PLAN 1. Atypical CP: initial trop nml. EKG SR without acute changes. Possibly GI, esophageal spasm? 2. CAD s/p CABG. Cath 2016 with patent grafts as noted above. Recent MPI as above 4. HTN: labile episode 5. Chronic HFpEF: compensated 6. Hyperlipidemia; statin therapy 7. Diabetes, II 8. ESRD on HD 9. Brief hypotension: suspect vasovagal response from the pain, reported only during HD 10. Suspect COPD with continued tobaccoism Recommendations 1. ASA, check lipid panel. Inaccurate med list? Will ascertain current home regimen. Continue secondary prevention measures otherwise. Labetolol IV PRN 2. Fluid off-loading via HD 3. Restart home PPI. monitor trop overnight. 4. Follow up with [facility] cardiology MICHELLE WILLIS MD 03/11/202115: CARDIAC CONSULT ASSESSMENT/PLAN ASSESSMENT/PLAN Patient seen and examined. Agree with OFFICE SECRETARY's assessment and plan. CP with atypical features and most prob GI etiology Doubt ACS, CAD s/p CABG clinically stable Recent cath and MPI results noted above Chr diast HF compensated Continue fluid removal with HD per nephrology team Thank you for your consultation KALIN DIEHL APRN March 11, 2020 15:42 MICHELLE WILLIS MD March 11, 2020 21:16
[2020-03-11] MEDS ORDERED: VANCOMYCIN 2 GM in IV NORMAL SALINE 500ML BAG 500 ML IV ONE (15:45)
[2020-03-11] MEDS ORDERED: LORazepam 0.5 MG TABLET PO PRN (16:00)
--- NOTE | 2020-03-11 16:05 | PDOC1 ---
History and Physical Date of Admission Date of Admission DATE: 03/11/20 TIME: 15:48 Identification/Chief Complaint Chief Complaint chest pain Problems: (1) CAD (coronary artery disease) Source Source: Chart review, Patient History of Present Illness History of Present Illness 54 year old CM hx of CAD, ischemic CM, ESRD on HD, narcotic use, DM, HTN who presents with substernal chest pain radiating to his back since last night at 4 am for the first time. states felt as sharp ches pain that woke him up at night. states chest pain similar to chest pain he experienced when he had IA in past. patient went to HD this AM and found to have low BP 68/42. did not get HD done and instead advised to go to ED. patient took all his meds as prescribed this AM. patient noted to have cough for several weeks. no sob. states coughing up blood. no fever, no body aches. cardiac workup negative in ED. cxr concerning for Left basilar infiltrate. noted elevated bnp [id number] esr 686. normal trop. normal tsh. hospitalist called for admission. Past Medical History Cardiovascular: CAD, CHF, HTN, Hyperlipidemia, Other Pulmonary: Bronchitis, Pulmonary embolus, Pneumonia, Other CENTRAL NERVOUS SYSTEM: CVA, Periperal neuropathy, Other GI: GERD, Other Heme/Onc: Cancer Psych: Depression Renal/: Chronic renal failure Endocrine: Diabetes, Hyperparathyroidism Past Surgical History Past Surgical History: Cholecystectomy, CABG, Tonsillectomy, Other Family History Family History: Kidney Disease Social History ALCOHOL: none Drugs: Cocaine Current Problem List Problem List Problems Medical Problems: (1) Chest pain Status: Acute (2) Infiltrate of left lung present on chest x-ray Status: Acute (3) Person under investigation for COVID-19 Status: Acute Current Medications Current Medications Current Medications Nitroglycerin (Nitrostat) 0.4 mg PRN Q5MIN PRN SL CP RATING > 1/10; Start 03/11/20 at 13:15; Stop 03/11/20 at 15:13; Status DC Fentanyl Citrate (Fentanyl 2ml Vial) 50 mcg PRN Q15MIN PRN IV PAIN GREATER THAN 3/10 Last administered on 03/11/20at 14:52; Start 03/11/20 at 13:15; Stop 03/12 at 13:14 Ceftriaxone Sodium (Rocephin) 1 gm 1X ONCE IVP ; Start 03/11/20 at 15:15; Stop 03/11/20 at 15:16; Status DC Azithromycin 250 ml @ 250 mls/hr 1X ONCE IV ; Start 03/11/20 at 15:15; Stop 03/11/20 at 16:14 Ondansetron HCl (Zofran) 4 mg PRN Q8HRS PRN IV NAUSEA/VOMITING; Start 03/11/20 at 15:15; Stop 03/12/20 at 15:14 Fentanyl Citrate (Fentanyl 2ml Vial) 50 mcg PRN Q1HR PRN IV PAIN; Start 03/11/20 at 15:15; Stop 03/12/20 at 15:14 Acetaminophen (Tylenol) 650 mg PRN Q4HRS PRN PO FEVER > 100.3'F; Start 03/11/20 at 15:15; Stop 03/12/20 at 15:14 Nitroglycerin (Nitrostat) 0.4 mg PRN Q5MIN PRN SL CHEST PAIN; Start 03/11/20 at 15:15; Stop 03/12/20 at 15:14 Cefepime HCl (Maxipime) 2 gm Q8HRS IVP ; Start 03/11/20 at 22:00; Status UNV Vancomycin HCl (Vanco Per Pharmacy) 1 each PRN DAILY PRN MC SEE COMMENTS; Start 03/11/20 at 15:30; Status UNV Vancomycin HCl 2 gm/Sodium Chloride 500 ml @ 250 mls/hr 1X ONCE IV ; Start 03/11/20 at 15:45; Stop 03/11/20 at 17:44 Active Scripts Active Reported Tresiba (Insulin Degludec) 100 Unit/1 Ml Vial 42 Unit SQ DAILY Ativan (Lorazepam) 1 Mg Tablet 0.5 Mg PO Q4HRS Percocet 10-325 Mg Tablet (Oxycodone/Acetaminophen) 1 Each Tablet 1 Tab PO BID Buspirone Hcl 5 Mg Tablet 5 Mg PO TID Lisinopril 20 Mg Tablet 20 Mg PO DAILY Furosemide 40 Mg Tablet 40 Mg PO BID Zofran (Ondansetron Hcl) 4 Mg Tablet 1 Tab PO PRN Q4HRS PRN NITROGLYCERIN SubLingual (Nitroglycerin) 0.4 Mg Tab.subl 0.4 Mg SL PRN Q5MIN PRN Hydrocort-Pramoxine 2.5%-1% cm (Hydrocortisone/Pramoxine) 4 Gm Cream.appl 1 Christo TP BID 10 Days Hydralazine Hcl 25 Mg Tablet 1 Tab PO BID Gabapentin 400 Mg Capsule 400 Mg PO BID Citalopram Hbr (Citalopram Hydrobromide) 40 Mg Tablet 40 Mg PO HS Cyclobenzaprine Hcl 10 Mg Tablet 1 Tab PO TID PRN PRN Ranexa (Ranolazine) 1,000 Mg Tab.er.12h 0.5 Tab PO BID Seroquel (Quetiapine Fumarate) 100 Mg Tablet 1 Tab PO QHS Protonix (Pantoprazole Sodium) 20 Mg Tablet.dr 40 Mg PO DAILY Docusate Sodium 100 Mg Capsule 1 Cap PO DAILY Divalproex Sodium 500 Mg Tablet.dr 2 Tab PO BID Aspirin 81 Mg Tab.chew 1 Tab PO DAILY Amitiza (Lubiprostone) 24 Mcg Capsule 1 Cap PO DAILY Norvasc (Amlodipine Besylate) 10 Mg Tablet 10 Mg PO DAILY Lipitor (Atorvastatin Calcium) 80 Mg Tablet 80 Mg PO HS Coreg (Carvedilol) 25 Mg Tablet 12.5 Mg PO BIDWMEALS Metolazone 5 Mg Tablet 5 Mg PO DAILY Renvela (Sevelamer Carbonate) 800 Mg Tablet 800 Mg PO TIDWMEALS Trazodone Hcl 300 Mg Tablet 150 Mg PO HS Allergies Allergies: Coded Allergies: hydromorphone (Verified Allergy, Severe, Anaphylaxis, 07/16/19) morphine ok ROS Review of System CONSTITUTIONAL: No fever or chills EYES: No recent changes SKIN: No rash or itching CARDIOVASCULAR: No chest pain, syncope, palpitations, or edema RESPIRATORY: No SOB or cough GASTROINTESTINAL: No nausea, vomiting or abdominal pain NEUROLOGICAL: No headaches or weakness ENDOCRINE: No cold or heat intolerance GENITOURINARY: No urgency or frequency of urination MUSCULOSKELETAL: No back pain or joint pain LYMPHATICS: No enlarged lymph nodes PSYCHIATRIC: No anxiety or depression Physical Exam Physical Exam GENERAL: No apparent distress. Alert and oriented. HEENT: Head normocephalic, atraumatic. NECK: Supple LUNGS: Clear to auscultation. HEART: RRR, S1, S2 present, pulses intact ABDOMEN: Soft, positive bowel sounds. EXTREMITIES: No cyanosis or edema. NEUROLOGIC: Normal speech, normal tone PSYCHIATRIC: Normal affect, normal mood. SKIN: No ulceration. Vitals Vitals Vital Signs Date Time Temp Pulse Resp B/P (MAP) Pulse Ox O2 Delivery O2 Flow Rate FiO2 03/11/20 14:52 18 95 Nasal Cannula 3.0 03/11/20 12:37 98.3 72 129/64 (85) 98.3 Labs Labs Laboratory Tests Test 03/11/20 13:35 White Blood Count 8.2 x10^3/uL (4.0-11.0) Red Blood Count 3.64 x10^6/uL (4.30-5.70) Hemoglobin 11.5 g/dL (13.0-17.5) Hematocrit 33.7 % (39.0-53.0) Mean Corpuscular Volume 93 fL (79-100) Mean Corpuscular Hemoglobin 32 pg (25-35) Mean Corpuscular Hemoglobin Concent 34 g/dL (31-37) Red Cell Distribution Width 14.1 % (11.5-14.5) Platelet Count 227 x10^3/uL (140-400) Neutrophils (%) (Auto) 69 % (31-73) Lymphocytes (%) (Auto) 19 % (24-48) Monocytes (%) (Auto) 9 % (0-9) Eosinophils (%) (Auto) 2 % (0-3) Basophils (%) (Auto) 0 % (0-3) Neutrophils # (Auto) 5.7 x10^3/uL (1.8-7.7) Lymphocytes # (Auto) 1.5 x10^3/uL (1.0-4.8) Monocytes # (Auto) 0.8 x10^3/uL (0.0-1.1) Eosinophils # (Auto) 0.2 x10^3/uL (0.0-0.7) Basophils # (Auto) 0.0 x10^3/uL (0.0-0.2) Sodium Level 137 mmol/L (136-145) Potassium Level 4.8 mmol/L (3.5-5.1) Chloride Level 98 mmol/L (98-107) Carbon Dioxide Level 27 mmol/L (21-32) Anion Gap 12 (6-14) Blood Urea Nitrogen 62 mg/dL (8-26) Creatinine 7.5 mg/dL (0.7-1.3) Estimated GFR (Cockcroft-Gault) 7.7 BUN/Creatinine Ratio 8 (6-20) Glucose Level 106 mg/dL (70-99) Calcium Level 7.5 mg/dL (8.5-10.1) Magnesium Level 1.8 mg/dL (1.8-2.4) Ferritin 686 ng/mL (26-388) Total Bilirubin 0.4 mg/dL (0.2-1.0) Aspartate Amino Transf (AST/SGOT) 18 U/L (15-37) Alanine Aminotransferase (ALT/SGPT) 23 U/L (16-63) Alkaline Phosphatase 195 U/L (46-116) Creatine Kinase 113 U/L (39-308) Creatine Kinase MB (Mass) 2.5 ng/mL (0.0-3.6) Creatine Kinase MB Relative Index 2.2 % (0-4) Troponin I Quantitative 0.024 ng/mL (0.000-0.055) C-Reactive Protein, Quantitative 2.5 mg/L (0-3.3) AY-Vgp-X-Type Natriuretic Peptide 6343 pg/mL (0-124) Total Protein 6.8 g/dL (6.4-8.2) Albumin 2.9 g/dL (3.4-5.0) Albumin/Globulin Ratio 0.7 (1.0-1.7) Thyroid Stimulating Hormone (TSH) 1.658 uIU/mL (0.358-3.74) Laboratory Tests Test 03/11/20 13:35 White Blood Count 8.2 x10^3/uL (4.0-11.0) Red Blood Count 3.64 x10^6/uL (4.30-5.70) Hemoglobin 11.5 g/dL (13.0-17.5) Hematocrit 33.7 % (39.0-53.0) Mean Corpuscular Volume 93 fL (79-100) Mean Corpuscular Hemoglobin 32 pg (25-35) Mean Corpuscular Hemoglobin Concent 34 g/dL (31-37) Red Cell Distribution Width 14.1 % (11.5-14.5) Platelet Count 227 x10^3/uL (140-400) Neutrophils (%) (Auto) 69 % (31-73) Lymphocytes (%) (Auto) 19 % (24-48) Monocytes (%) (Auto) 9 % (0-9) Eosinophils (%) (Auto) 2 % (0-3) Basophils (%) (Auto) 0 % (0-3) Neutrophils # (Auto) 5.7 x10^3/uL (1.8-7.7) Lymphocytes # (Auto) 1.5 x10^3/uL (1.0-4.8) Monocytes # (Auto) 0.8 x10^3/uL (0.0-1.1) Eosinophils # (Auto) 0.2 x10^3/uL (0.0-0.7) Basophils # (Auto) 0.0 x10^3/uL (0.0-0.2) Sodium Level 137 mmol/L (136-145) Potassium Level 4.8 mmol/L (3.5-5.1) Chloride Level 98 mmol/L (98-107) Carbon Dioxide Level 27 mmol/L (21-32) Anion Gap 12 (6-14) Blood Urea Nitrogen 62 mg/dL (8-26) Creatinine 7.5 mg/dL (0.7-1.3) Estimated GFR (Cockcroft-Gault) 7.7 BUN/Creatinine Ratio 8 (6-20) Glucose Level 106 mg/dL (70-99) Calcium Level 7.5 mg/dL (8.5-10.1) Magnesium Level 1.8 mg/dL (1.8-2.4) Ferritin 686 ng/mL (26-388) Total Bilirubin 0.4 mg/dL (0.2-1.0) Aspartate Amino Transf (AST/SGOT) 18 U/L (15-37) Alanine Aminotransferase (ALT/SGPT) 23 U/L (16-63) Alkaline Phosphatase 195 U/L (46-116) Creatine Kinase 113 U/L (39-308) Creatine Kinase MB (Mass) 2.5 ng/mL (0.0-3.6) Creatine Kinase MB Relative Index 2.2 % (0-4) Troponin I Quantitative 0.024 ng/mL (0.000-0.055) C-Reactive Protein, Quantitative 2.5 mg/L (0-3.3) XX-Hpx-D-Type Natriuretic Peptide 6343 pg/mL (0-124) Total Protein 6.8 g/dL (6.4-8.2) Albumin 2.9 g/dL (3.4-5.0) Albumin/Globulin Ratio 0.7 (1.0-1.7) Thyroid Stimulating Hormone (TSH) 1.658 uIU/mL (0.358-3.74) VTE Prophylaxis Ordered VTE Prophylaxis Devices: Yes VTE Pharmacological Prophylaxi: Yes Assessment/Plan Assessment/Plan ASSESSMENT Atypical CP IN SETTING OF NL trop and negative EKG Left Basilar infiltrate, ? PNA CAD s/p CABG. Cath 2016 with patent grafts as noted above. HTN, now hypotensive Acute on chronic diastolic CHF; Echo 07/19 with preserved LV systolic function Hyperlipidemia Diabetes, II--insulin dependent ESRD on HD PLAN admit to tele start vanc and zosyn check sputum cx follow up tele cards consult continue home meds except BP meds. check orthostatics given low BP prior to HD resume home insulin therapy nephro consult dvt ppx full code: previously on hospice for end stage HF but now off hospice and states he is on cardiac transplant list BOBBY CASEY MD March 11, 2020 16:05
[2020-03-11] MEDS ORDERED: LABETALOL 20 MG/4 ML DISP.SYRIN. IVP PRN (17:00)
[2020-03-11] MEDS ORDERED: ONDANSETRON ODT 4 MG TAB.RAPDIS. PO PRN (17:15)
[2020-03-11] MEDS: VANCOMYCIN PER PHARMACY MC PRN (19:17)
--- NOTE | 2020-03-11 19:17 | NUR ---
Pharmacy Vancomycin Dosing Note S:Consulted to monitor and dose vancomycin started 03/11/20. O:JULIAN GARCÍA is a 54 year old M with possible HCAP, COVID-19 rule out. Height: 6 feet, 3 inches Weight: 113.0 kg Other Antibiotics: CEFEPIME 1G IV Q24HRS LABS: Last BUN: 62 Last Creatinine: 7.5 Creatinine Clearance: ESRD on HD mL/min Last WBC: 8.2 Tmax (past 24 hours): 98.3 Microbiology: BLOOD, SPUTUM CXs PENDING A: Patient requires vancomycin for possible HCAP, goal trough 15-20 mcg/ml. He is ESRD with an outpt HD schedule of TTS. P: 1. Initiate Vancomycin 2000 mg IV x 1 dose 2. Follow up random level on 03/13/20 at 0600 (pre-HD level) 3. Pharmacy will continue to monitor, follow and adjust therapy as needed. BHUPENDRA MEZT [facility], 03/11/20 [id number]
[2020-03-11 19:20] VITALS: BP 152/73
[2020-03-11] MEDS ORDERED: ATORVASTATIN CALCIUM 40 MG TABLET. PO SCH (21:00)
[2020-03-11] MEDS: HYDROCORTISONE 2.5% RECTAL CREAM 30GM TUBE. RC SCH (21:00)
[2020-03-11] MEDS: busPIRone 5 MG TABLET. PO SCH (21:19)
[2020-03-11] MEDS: traZODone 50 MG TABLET. PO SCH (21:19)
[2020-03-11] MEDS: RANOLAZINE 500 MG TAB.ER.12H PO SCH (21:20)
[2020-03-11] MEDS: QUEtiapine 100 MG TABLET. PO SCH (21:20)
[2020-03-11] MEDS: oxyCODONE/APAP 10/325 1 TAB TABLET PO SCH (21:20)
[2020-03-11] MEDS: DIVALPROEX DELAYED RELEASE 500 MG TABLET.DR. PO SCH (21:20)
[2020-03-11] MEDS: GABAPENTIN 400 MG CAPSULE. PO SCH (21:20)
[2020-03-11] MEDS: CEFEPIME HCL IV Push 1 GM VIAL. IVP SCH (21:22)
[2020-03-11] MEDS ORDERED: FURO80TA3 PO (21:44)
[2020-03-11 22:45] VITALS: BP 159/74
[2020-03-12 03:00] VITALS: BP 140/70
[2020-03-12 04:11] LABS: BASO % 0 % (0-3); EOS # 0.2 x10^3/uL (0.0-0.7); EOS % 3 % (0-3); HEMOGLOBIN 11.5 g/dL (13.0-17.5); LYMPH # 2.6 x10^3/uL (1.0-4.8); LYMPH % 37 % (24-48); MEAN CORPUSCULAR HEMOGLOBIN 32 pg (25-35); MEAN CORPUSCULAR HGB CONC 34 g/dL (31-37); MEAN CORPUSCULAR VOLUME 94 fL (79-100); MONO # 0.6 x10^3/uL (0.0-1.1); MONO % 9 % (0-9); NEUT # 3.6 x10^3/uL (1.8-7.7); NEUT % 51 % (31-73); PLATELET COUNT 200 x10^3/uL (140-400); RED BLOOD COUNT 3.61 x10^6/uL (4.30-5.70); RED CELL DISTRIBUTION WIDTH 14.5 % (11.5-14.5); WHITE BLOOD COUNT 7.1 x10^3/uL (4.0-11.0)
[2020-03-12 04:47] LABS: CHOLESTEROL/HDL RATIO 5.9
[2020-03-12 07:00] VITALS: BP 112/57
[2020-03-12] MEDS: busPIRone 5 MG TABLET. PO SCH ×3 (08:14→21:35)
[2020-03-12] MEDS: RANOLAZINE 500 MG TAB.ER.12H PO SCH ×2 (08:14→21:37)
[2020-03-12] MEDS: SEVELAMER CARBONATE 800 MG TABLET. PO SCH ×3 (08:14→17:41)
[2020-03-12] MEDS: DIVALPROEX DELAYED RELEASE 500 MG TABLET.DR. PO SCH ×2 (08:15→21:48)
[2020-03-12] MEDS: GABAPENTIN 400 MG CAPSULE. PO SCH ×2 (08:15→21:38)
[2020-03-12] MEDS: PANTOPRAZOLE 40 MG TABLET.DR. PO SCH (08:15)
[2020-03-12] MEDS: oxyCODONE/APAP 10/325 1 TAB TABLET PO SCH (08:16)
--- NOTE | 2020-03-12 08:16 | PDOC ---
PROGRESS NOTES Chief Complaint Chief Complaint Atypical CP IN SETTING OF NL trop and negative EKG Left Basilar infiltrate, ? PNA CAD s/p CABG. Cath 2016 with patent grafts as noted above. HTN, now hypotensive Acute on chronic diastolic CHF; Echo 07/19 with preserved LV systolic function Hyperlipidemia Diabetes, II--insulin dependent ESRD on HD History of Present Illness History of Present Illness Mr Bedolla 54 yo M w/ PMHx CAD, ischemic CM, ESRD on HD, narcotic use, DM, HTN who presents with substernal chest pain radiating to his back since last night at 4 am for the first time. states felt as sharp ches pain that woke him up at night. states chest pain similar to chest pain he experienced when he had [place] in past. patient went to HD this AM and found to have low BP 68/42. did not get HD done and instead advised to go to ED. patient took all his meds as prescribed this AM. patient noted to have cough for several weeks. no sob. states coughing up blood. no fever, no body aches. cardiac workup negative in ED. cxr concerning for Left basilar infiltrate. noted elevated bnp [id number] esr 686. normal trop. normal tsh. Consults: Cardiology, nephrology He relates to me he was on hospice until 2 months ago. Now he is looking to have a PD catheter reinserted. He still has left-sided reproducible chest pain worse on deep inspiration. Pro calcitonin pending is on cefepime and vancomycin empirically. Cardiology sees no need for further cardiac work-up at this point ruled out [place]. His blood pressure has improved slightly Vitals Vitals Vital Signs Date Time Temp Pulse Resp B/P (MAP) Pulse Ox O2 Delivery O2 Flow Rate FiO2 03/12/20 07:00 98.4 71 20 112/57 (75) 97 Nasal Cannula 3.0 98.4 Physical Exam General: Alert, Oriented X3, Cooperative, No acute distress Heart: Regular rate (SR), Normal S1, Normal S2, No murmurs Abdomen: Soft, No tenderness Extremities: No cyanosis, No edema Skin: No breakdown, No significant lesion Labs LABS Laboratory Tests Test 03/11/20 13:35 03/11/20 15:45 03/11/20 16:15 03/11/20 19:15 White Blood Count 8.2 x10^3/uL (4.0-11.0) Red Blood Count 3.64 x10^6/uL (4.30-5.70) Hemoglobin 11.5 g/dL (13.0-17.5) Hematocrit 33.7 % (39.0-53.0) Mean Corpuscular Volume 93 fL (79-100) Mean Corpuscular Hemoglobin 32 pg (25-35) Mean Corpuscular Hemoglobin Concent 34 g/dL (31-37) Red Cell Distribution Width 14.1 % (11.5-14.5) Platelet Count 227 x10^3/uL (140-400) Neutrophils (%) (Auto) 69 % (31-73) Lymphocytes (%) (Auto) 19 % (24-48) Monocytes (%) (Auto) 9 % (0-9) Eosinophils (%) (Auto) 2 % (0-3) Basophils (%) (Auto) 0 % (0-3) Neutrophils # (Auto) 5.7 x10^3/uL (1.8-7.7) Lymphocytes # (Auto) 1.5 x10^3/uL (1.0-4.8) Monocytes # (Auto) 0.8 x10^3/uL (0.0-1.1) Eosinophils # (Auto) 0.2 x10^3/uL (0.0-0.7) Basophils # (Auto) 0.0 x10^3/uL (0.0-0.2) Sodium Level 137 mmol/L (136-145) Potassium Level 4.8 mmol/L (3.5-5.1) Chloride Level 98 mmol/L (98-107) Carbon Dioxide Level 27 mmol/L (21-32) Anion Gap 12 (6-14) Blood Urea Nitrogen 62 mg/dL (8-26) Creatinine 7.5 mg/dL (0.7-1.3) Estimated GFR (Cockcroft-Gault) 7.7 BUN/Creatinine Ratio 8 (6-20) Glucose Level 106 mg/dL (70-99) Calcium Level 7.5 mg/dL (8.5-10.1) Magnesium Level 1.8 mg/dL (1.8-2.4) Ferritin 686 ng/mL (26-388) Total Bilirubin 0.4 mg/dL (0.2-1.0) Aspartate Amino Transf (AST/SGOT) 18 U/L (15-37) Alanine Aminotransferase (ALT/SGPT) 23 U/L (16-63) Alkaline Phosphatase 195 U/L (46-116) Creatine Kinase 113 U/L (39-308) Creatine Kinase MB (Mass) 2.5 ng/mL (0.0-3.6) Creatine Kinase MB Relative Index 2.2 % (0-4) Troponin I Quantitative 0.024 ng/mL (0.000-0.055) 0.023 ng/mL (0.000-0.055) 0.019 ng/mL (0.000-0.055) C-Reactive Protein, Quantitative 2.5 mg/L (0-3.3) XT-Ytp-[id number]-Type Natriuretic Peptide 6343 pg/mL (0-124) Total Protein 6.8 g/dL (6.4-8.2) Albumin 2.9 g/dL (3.4-5.0) Albumin/Globulin Ratio 0.7 (1.0-1.7) Thyroid Stimulating Hormone (TSH) 1.658 uIU/mL (0.358-3.74) Lactic Acid Level 0.8 mmol/L (0.4-2.0) Test 03/11/20 21:12 03/12/20 03:35 03/12/20 07:31 Glucose (Fingerstick) 135 mg/dL (70-99) 124 mg/dL (70-99) White Blood Count 7.1 x10^3/uL (4.0-11.0) Red Blood Count 3.61 x10^6/uL (4.30-5.70) Hemoglobin 11.5 g/dL (13.0-17.5) Hematocrit 34.0 % (39.0-53.0) Mean Corpuscular Volume 94 fL (79-100) Mean Corpuscular Hemoglobin 32 pg (25-35) Mean Corpuscular Hemoglobin Concent 34 g/dL (31-37) Red Cell Distribution Width 14.5 % (11.5-14.5) Platelet Count 200 x10^3/uL (140-400) Neutrophils (%) (Auto) 51 % (31-73) Lymphocytes (%) (Auto) 37 % (24-48) Monocytes (%) (Auto) 9 % (0-9) Eosinophils (%) (Auto) 3 % (0-3) Basophils (%) (Auto) 0 % (0-3) Neutrophils # (Auto) 3.6 x10^3/uL (1.8-7.7) Lymphocytes # (Auto) 2.6 x10^3/uL (1.0-4.8) Monocytes # (Auto) 0.6 x10^3/uL (0.0-1.1) Eosinophils # (Auto) 0.2 x10^3/uL (0.0-0.7) Basophils # (Auto) 0.0 x10^3/uL (0.0-0.2) Triglycerides Level 253 mg/dL (0-150) Cholesterol Level 164 mg/dL (0-200) LDL Cholesterol, Calculated 85 mg/dL (0-100) VLDL Cholesterol, Calculated 51 mg/dL (0-40) Non-HDL Cholesterol Calculated 136 mg/dL (0-129) HDL Cholesterol 28 mg/dL (40-60) Cholesterol/HDL Ratio 5.9 Assessment and Plan Assessmemt and Plan Problems Medical Problems: (1) Chest pain Status: Acute (2) Infiltrate of left lung present on chest x-ray Status: Acute (3) Person under investigation for COVID-19 Status: Acute Comment Review of Relevant I have reviewed the following items nelda (where applicable) has been applied. Labs Laboratory Tests Test 03/11/20 13:35 03/11/20 15:45 03/11/20 16:15 03/11/20 19:15 White Blood Count 8.2 x10^3/uL (4.0-11.0) Red Blood Count 3.64 x10^6/uL (4.30-5.70) Hemoglobin 11.5 g/dL (13.0-17.5) Hematocrit 33.7 % (39.0-53.0) Mean Corpuscular Volume 93 fL (79-100) Mean Corpuscular Hemoglobin 32 pg (25-35) Mean Corpuscular Hemoglobin Concent 34 g/dL (31-37) Red Cell Distribution Width 14.1 % (11.5-14.5) Platelet Count 227 x10^3/uL (140-400) Neutrophils (%) (Auto) 69 % (31-73) Lymphocytes (%) (Auto) 19 % (24-48) Monocytes (%) (Auto) 9 % (0-9) Eosinophils (%) (Auto) 2 % (0-3) Basophils (%) (Auto) 0 % (0-3) Neutrophils # (Auto) 5.7 x10^3/uL (1.8-7.7) Lymphocytes # (Auto) 1.5 x10^3/uL (1.0-4.8) Monocytes # (Auto) 0.8 x10^3/uL (0.0-1.1) Eosinophils # (Auto) 0.2 x10^3/uL (0.0-0.7) Basophils # (Auto) 0.0 x10^3/uL (0.0-0.2) Sodium Level 137 mmol/L (136-145) Potassium Level 4.8 mmol/L (3.5-5.1) Chloride Level 98 mmol/L (98-107) Carbon Dioxide Level 27 mmol/L (21-32) Anion Gap 12 (6-14) Blood Urea Nitrogen 62 mg/dL (8-26) Creatinine 7.5 mg/dL (0.7-1.3) Estimated GFR (Cockcroft-Gault) 7.7 BUN/Creatinine Ratio 8 (6-20) Glucose Level 106 mg/dL (70-99) Calcium Level 7.5 mg/dL (8.5-10.1) Magnesium Level 1.8 mg/dL (1.8-2.4) Ferritin 686 ng/mL (26-388) Total Bilirubin 0.4 mg/dL (0.2-1.0) Aspartate Amino Transf (AST/SGOT) 18 U/L (15-37) Alanine Aminotransferase (ALT/SGPT) 23 U/L (16-63) Alkaline Phosphatase 195 U/L (46-116) Creatine Kinase 113 U/L (39-308) Creatine Kinase MB (Mass) 2.5 ng/mL (0.0-3.6) Creatine Kinase MB Relative Index 2.2 % (0-4) Troponin I Quantitative 0.024 ng/mL (0.000-0.055) 0.023 ng/mL (0.000-0.055) 0.019 ng/mL (0.000-0.055) C-Reactive Protein, Quantitative 2.5 mg/L (0-3.3) RO-Xgf-X-Type Natriuretic Peptide 6343 pg/mL (0-124) Total Protein 6.8 g/dL (6.4-8.2) Albumin 2.9 g/dL (3.4-5.0) Albumin/Globulin Ratio 0.7 (1.0-1.7) Thyroid Stimulating Hormone (TSH) 1.658 uIU/mL (0.358-3.74) Lactic Acid Level 0.8 mmol/L (0.4-2.0) Test 03/11/20 21:12 03/12/20 03:35 03/12/20 07:31 Glucose (Fingerstick) 135 mg/dL (70-99) 124 mg/dL (70-99) White Blood Count 7.1 x10^3/uL (4.0-11.0) Red Blood Count 3.61 x10^6/uL (4.30-5.70) Hemoglobin 11.5 g/dL (13.0-17.5) Hematocrit 34.0 % (39.0-53.0) Mean Corpuscular Volume 94 fL (79-100) Mean Corpuscular Hemoglobin 32 pg (25-35) Mean Corpuscular Hemoglobin Concent 34 g/dL (31-37) Red Cell Distribution Width 14.5 % (11.5-14.5) Platelet Count 200 x10^3/uL (140-400) Neutrophils (%) (Auto) 51 % (31-73) Lymphocytes (%) (Auto) 37 % (24-48) Monocytes (%) (Auto) 9 % (0-9) Eosinophils (%) (Auto) 3 % (0-3) Basophils (%) (Auto) 0 % (0-3) Neutrophils # (Auto) 3.6 x10^3/uL (1.8-7.7) Lymphocytes # (Auto) 2.6 x10^3/uL (1.0-4.8) Monocytes # (Auto) 0.6 x10^3/uL (0.0-1.1) Eosinophils # (Auto) 0.2 x10^3/uL (0.0-0.7) Basophils # (Auto) 0.0 x10^3/uL (0.0-0.2) Triglycerides Level 253 mg/dL (0-150) Cholesterol Level 164 mg/dL (0-200) LDL Cholesterol, Calculated 85 mg/dL (0-100) VLDL Cholesterol, Calculated 51 mg/dL (0-40) Non-HDL Cholesterol Calculated 136 mg/dL (0-129) HDL Cholesterol 28 mg/dL (40-60) Cholesterol/HDL Ratio 5.9 Laboratory Tests Test 03/11/20 13:35 03/11/20 15:45 03/11/20 16:15 03/11/20 19:15 White Blood Count 8.2 x10^3/uL (4.0-11.0) Red Blood Count 3.64 x10^6/uL (4.30-5.70) Hemoglobin 11.5 g/dL (13.0-17.5) Hematocrit 33.7 % (39.0-53.0) Mean Corpuscular Volume 93 fL (79-100) Mean Corpuscular Hemoglobin 32 pg (25-35) Mean Corpuscular Hemoglobin Concent 34 g/dL (31-37) Red Cell Distribution Width 14.1 % (11.5-14.5) Platelet Count 227 x10^3/uL (140-400) Neutrophils (%) (Auto) 69 % (31-73) Lymphocytes (%) (Auto) 19 % (24-48) Monocytes (%) (Auto) 9 % (0-9) Eosinophils (%) (Auto) 2 % (0-3) Basophils (%) (Auto) 0 % (0-3) Neutrophils # (Auto) 5.7 x10^3/uL (1.8-7.7) Lymphocytes # (Auto) 1.5 x10^3/uL (1.0-4.8) Monocytes # (Auto) 0.8 x10^3/uL (0.0-1.1) Eosinophils # (Auto) 0.2 x10^3/uL (0.0-0.7) Basophils # (Auto) 0.0 x10^3/uL (0.0-0.2) Sodium Level 137 mmol/L (136-145) Potassium Level 4.8 mmol/L (3.5-5.1) Chloride Level 98 mmol/L (98-107) Carbon Dioxide Level 27 mmol/L (21-32) Anion Gap 12 (6-14) Blood Urea Nitrogen 62 mg/dL (8-26) Creatinine 7.5 mg/dL (0.7-1.3) Estimated GFR (Cockcroft-Gault) 7.7 BUN/Creatinine Ratio 8 (6-20) Glucose Level 106 mg/dL (70-99) Calcium Level 7.5 mg/dL (8.5-10.1) Magnesium Level 1.8 mg/dL (1.8-2.4) Ferritin 686 ng/mL (26-388) Total Bilirubin 0.4 mg/dL (0.2-1.0) Aspartate Amino Transf (AST/SGOT) 18 U/L (15-37) Alanine Aminotransferase (ALT/SGPT) 23 U/L (16-63) Alkaline Phosphatase 195 U/L (46-116) Creatine Kinase 113 U/L (39-308) Creatine Kinase MB (Mass) 2.5 ng/mL (0.0-3.6) Creatine Kinase MB Relative Index 2.2 % (0-4) Troponin I Quantitative 0.024 ng/mL (0.000-0.055) 0.023 ng/mL (0.000-0.055) 0.019 ng/mL (0.000-0.055) C-Reactive Protein, Quantitative 2.5 mg/L (0-3.3) OY-Xce-X-Type Natriuretic Peptide 6343 pg/mL (0-124) Total Protein 6.8 g/dL (6.4-8.2) Albumin 2.9 g/dL (3.4-5.0) Albumin/Globulin Ratio 0.7 (1.0-1.7) Thyroid Stimulating Hormone (TSH) 1.658 uIU/mL (0.358-3.74) Lactic Acid Level 0.8 mmol/L (0.4-2.0) Test 03/11/20 21:12 03/12/20 03:35 03/12/20 07:31 Glucose (Fingerstick) 135 mg/dL (70-99) 124 mg/dL (70-99) White Blood Count 7.1 x10^3/uL (4.0-11.0) Red Blood Count 3.61 x10^6/uL (4.30-5.70) Hemoglobin 11.5 g/dL (13.0-17.5) Hematocrit 34.0 % (39.0-53.0) Mean Corpuscular Volume 94 fL (79-100) Mean Corpuscular Hemoglobin 32 pg (25-35) Mean Corpuscular Hemoglobin Concent 34 g/dL (31-37) Red Cell Distribution Width 14.5 % (11.5-14.5) Platelet Count 200 x10^3/uL (140-400) Neutrophils (%) (Auto) 51 % (31-73) Lymphocytes (%) (Auto) 37 % (24-48) Monocytes (%) (Auto) 9 % (0-9) Eosinophils (%) (Auto) 3 % (0-3) Basophils (%) (Auto) 0 % (0-3) Neutrophils # (Auto) 3.6 x10^3/uL (1.8-7.7) Lymphocytes # (Auto) 2.6 x10^3/uL (1.0-4.8) Monocytes # (Auto) 0.6 x10^3/uL (0.0-1.1) Eosinophils # (Auto) 0.2 x10^3/uL (0.0-0.7) Basophils # (Auto) 0.0 x10^3/uL (0.0-0.2) Triglycerides Level 253 mg/dL (0-150) Cholesterol Level 164 mg/dL (0-200) LDL Cholesterol, Calculated 85 mg/dL (0-100) VLDL Cholesterol, Calculated 51 mg/dL (0-40) Non-HDL Cholesterol Calculated 136 mg/dL (0-129) HDL Cholesterol 28 mg/dL (40-60) Cholesterol/HDL Ratio 5.9 Medications Current Medications Nitroglycerin (Nitrostat) 0.4 mg PRN Q5MIN PRN SL CP RATING > 1/10; Start 03/11 at 13:15; Stop 03/11/20 at 15:13; Status DC Fentanyl Citrate (Fentanyl 2ml Vial) 50 mcg PRN Q15MIN PRN IV PAIN GREATER THAN 3/10 Last administered on 03/11/20at 23:01; Start 03/11/20 at 13:15; Stop 03/12/20 at 13:14 Ceftriaxone Sodium (Rocephin) 1 gm 1X ONCE IVP Last administered on 03/11/20at 16:03; Start 03/11/20 at 15:15; Stop 03/11/20 at 15:16; Status DC Azithromycin 250 ml @ 250 mls/hr 1X ONCE IV Last administered on 03/11/20at 16:04; Start 03/11/20 at 15:15; Stop 03/11/20 at 16:14; Status DC Ondansetron HCl (Zofran) 4 mg PRN Q8HRS PRN IV NAUSEA/VOMITING; Start 03/11/20 at 15:15; Stop 03/12/20 at 15:14 Fentanyl Citrate (Fentanyl 2ml Vial) 50 mcg PRN Q1HR PRN IV PAIN Last administered on 03/12/20at 03:30; Start 03/11/20 at 15:15; Stop 03/12/20 at 15:14 Acetaminophen (Tylenol) 650 mg PRN Q4HRS PRN PO FEVER > 100.3'F; Start 03/11/20 at 15:15; Stop 03/12/20 at 15:14 Nitroglycerin (Nitrostat) 0.4 mg PRN Q5MIN PRN SL CHEST PAIN; Start 03/11/20 at 15:15; Stop 03/12/20 at 15:14 Cefepime HCl (Maxipime) 1 gm Q24H IVP Last administered on 03/11/20at 21:22; Start 03/11/20 at 20:00 Vancomycin HCl (Vanco Per Pharmacy) 1 each PRN DAILY PRN MC SEE COMMENTS Last administered on 03/11/20at 19:17; Start 03/11/20 at 15:30 Vancomycin HCl 2 gm/Sodium Chloride 500 ml @ 250 mls/hr 1X ONCE IV Last administered on 03/11/20at 17:21; Start 03/11/20 at 15:45; Stop 03/11/20 at 17:44; Status DC Amlodipine Besylate (Norvasc) 10 mg DAILY PO ; Start 03/12/20 at 09:00 Aspirin (Aspirin Chewable) 81 mg DAILY PO ; Start 03/12/20 at 09:00 Buspirone HCl (Buspar) 5 mg TID PO Last administered on 03/11/20at 21:19; Start 03/11/20 at 21:00 Cyclobenzaprine HCl (Flexeril) 10 mg TID PRN PRN PO MUSCLE SPASMS; Start 03/11/20 at 15:45 Divalproex Sodium (Depakote) 1,000 mg BID PO Last administered on 03/11/20at 21:20; Start 03/11/20 at 21:00 Docusate Sodium (Colace) 100 mg DAILY PO ; Start 03/12/20 at 09:00 Gabapentin (Neurontin) 400 mg BID PO Last administered on 03/11/20at 21:20; Start 03/11/20 at 21:00 Lorazepam (Ativan) 0.5 mg PRN Q4HRS PRN PO ANXIETY / AGITATION; Start 03/11/20 at 16:00 Lubiprostone (Amitiza) 24 mcg DAILY PO ; Start 03/12/20 at 09:00 Nitroglycerin (Nitrostat) 0.4 mg PRN Q5MIN PRN SL CHEST PAIN; Start 03/11/20 at 15:45 Oxycodone/ Acetaminophen (Percocet 10/325) 1 tab BID PO Last administered on 03/11/20at 21:20; Start 03/11/20 at 21:00 Quetiapine Fumarate (SEROquel) 100 mg QHS PO Last administered on 03/11/20at 21:20; Start 03/11/20 at 21:00 Sevelamer Carbonate (Renvela) 800 mg TIDWMEALS PO ; Start 03/12/20 at 08:00 Atorvastatin Calcium (Lipitor) 80 mg QHS PO Last administered on 03/11/20at 21:19; Start 03/11/20 at 21:00; Stop 03/12/20 at 07:54; Status DC Citalopram Hydrobromide (CeleXA) 40 mg DAILY PO ; Start 03/12/20 at 09:00 Hydrocortisone (Proctosol-Hc) 1 jv BID RC ; Start 03/11/20 at 21:00 Insulin Glargine (Lantus Syringe) 42 unit DAILY SQ ; Start 03/12/20 at 09:00 Metolazone (Zaroxolyn) 5 mg DAILY PO ; Start 03/12/20 at 09:00 Ondansetron HCl (Zofran Odt) 4 mg PRN Q4HRS PRN PO NAUSEA/VOMITING; Start 03/11/20 at 17:15 Pantoprazole Sodium (Protonix) 40 mg DAILYAC PO ; Start 03/12/20 at 07:30 Ranolazine (Ranexa) 500 mg BID PO Last administered on 03/11/20at 21:20; Start 03/11/20 at 21:00 Trazodone HCl (Desyrel) 150 mg QHS PO Last administered on 03/11/20at 21:19; Start 03/11/20 at 21:00 Labetalol HCl (Normodyne Iv Push) 20 mg PRN Q2HR PRN IVP ELEVATED BP, SEE COMMENTS; Start 03/11/20 at 17:00 Vancomycin HCl (Vancomycin Random Level) 1 each 1X ONCE MC ; Start 03/13/20 at 06:00; Stop 03/13/20 at 06:01 Atorvastatin Calcium (Lipitor) 20 mg QHS PO ; Start 03/12/20 at 21:00 Active Scripts Active Reported Furosemide 80 Mg Tablet 120 Mg PO BID Tresiba (Insulin Degludec) 100 Unit/1 Ml Vial 42 Unit SQ DAILY Ativan (Lorazepam) 1 Mg Tablet 0.5 Mg PO Q4HRS Percocet 10-325 Mg Tablet (Oxycodone/Acetaminophen) 1 Each Tablet 1 Tab PO BID Buspirone Hcl 5 Mg Tablet 5 Mg PO TID Lisinopril 20 Mg Tablet 20 Mg PO DAILY Zofran (Ondansetron Hcl) 4 Mg Tablet 1 Tab PO PRN Q4HRS PRN NITROGLYCERIN SubLingual (Nitroglycerin) 0.4 Mg Tab.subl 0.4 Mg SL PRN Q5MIN PRN Hydralazine Hcl 25 Mg Tablet 1 Tab PO BID Gabapentin 400 Mg Capsule 400 Mg PO BID Citalopram Hbr (Citalopram Hydrobromide) 40 Mg Tablet 40 Mg PO HS Cyclobenzaprine Hcl 10 Mg Tablet 1 Tab PO TID PRN PRN Ranexa (Ranolazine) 1,000 Mg Tab.er.12h 0.5 Tab PO BID Seroquel (Quetiapine Fumarate) 100 Mg Tablet 1 Tab PO QHS Protonix (Pantoprazole Sodium) 20 Mg Tablet.dr 40 Mg PO DAILY Docusate Sodium 100 Mg Capsule 1 Cap PO DAILY Divalproex Sodium 500 Mg Tablet.dr 2 Tab PO BID Aspirin 81 Mg Tab.chew 1 Tab PO DAILY Amitiza (Lubiprostone) 24 Mcg Capsule 1 Cap PO DAILY Norvasc (Amlodipine Besylate) 10 Mg Tablet 10 Mg PO DAILY Lipitor (Atorvastatin Calcium) 80 Mg Tablet 80 Mg PO HS Coreg (Carvedilol) 25 Mg Tablet 12.5 Mg PO BIDWMEALS Metolazone 5 Mg Tablet 5 Mg PO DAILY Renvela (Sevelamer Carbonate) 800 Mg Tablet 800 Mg PO TIDWMEALS Trazodone Hcl 300 Mg Tablet 150 Mg PO HS Vitals/I & O Vital Sign - Last 24 Hours 03/11/20 03/11/20 03/11/20 03/11/20 12:37 13:22 13:38 13:52 Temp 98.3 98.3 Pulse 72 72 74 Resp 16 20 16 20 B/P (MAP) 129/64 (85) 137/65 (89) 140/68 (92) Pulse Ox 99 98 95 100 O2 Delivery Nasal Cannula Nasal Cannula Nasal Cannula Nasal Cannula O2 Flow Rate 3.0 3.0 3.0 3.0 03/11/20 03/11/20 03/11/20 03/11/20 14:20 14:22 14:52 14:52 Pulse 72 74 Resp 20 18 B/P (MAP) 125/69 (87) 136/69 (91) Pulse Ox 96 100 95 93 O2 Delivery Nasal Cannula Nasal Cannula Nasal Cannula Nasal Cannula O2 Flow Rate 3.0 3.0 3.0 3.0 03/11/20 03/11/20 03/11/20 03/11/20 15:22 16:02 16:22 17:18 Pulse 74 74 74 72 Resp 16 B/P (MAP) 142/69 (93) 171/73 (105) 179/80 (113) 126/65 (85) Pulse Ox 100 98 99 O2 Delivery Nasal Cannula Nasal Cannula Nasal Cannula Nasal Cannula O2 Flow Rate 3.0 3.0 3.0 3.0 03/11/20 03/11/20 03/11/20 03/11/20 17:22 17:41 17:52 19:16 Pulse 72 70 74 Resp 16 16 16 16 B/P (MAP) 125/66 (85) 141/73 (95) 162/76 (104) Pulse Ox 99 3 100 100 O2 Delivery Nasal Cannula Nasal Cannula Nasal Cannula Nasal Cannula O2 Flow Rate 3.0 3.0 3.0 03/11/20 03/11/20 03/11/20 03/11/20 19:20 20:07 21:20 21:20 Temp 97.3 97.3 Pulse 75 75 Resp 20 B/P (MAP) 152/73 (99) 152/73 Pulse Ox 100 100 O2 Delivery Room Air Nasal Cannula Nasal Cannula O2 Flow Rate 3.0 3.0 03/11/20 03/11/20 03/11/20 03/11/20 22:20 22:45 23:01 23:31 Temp 96.9 96.9 Pulse 77 Resp 20 B/P (MAP) 159/74 (102) Pulse Ox 100 99 O2 Delivery Nasal Cannula Nasal Cannula Nasal Cannula Nasal Cannula O2 Flow Rate 3.0 3.0 3.0 3.0 03/12/20 03/12/20 03/12/20 03/12/20 03:00 03:30 04:00 07:00 Temp 96.8 98.4 96.8 98.4 Pulse 76 71 Resp 16 20 B/P (MAP) 140/70 (93) 112/57 (75) Pulse Ox 98 97 O2 Delivery Nasal Cannula Nasal Cannula Nasal Cannula Nasal Cannula O2 Flow Rate 3.0 Intake and Output 03/11/20 03/11/20 03/12/20 15:00 23:00 07:00 Intake Total 750 ml 360 ml Output Total 300 ml 300 ml Balance 450 ml 60 ml GALI ROMERO MD March 12, 2020 08:16
[2020-03-12] MEDS: ASPIRIN CHEWABLE 81 MG TABLET. PO SCH (08:20)
[2020-03-12] MEDS: LUBIPROSTONE 24 MCG CAPSULE PO SCH (08:21)
[2020-03-12] MEDS: DOCUSATE SODIUM 100 MG CAPSULE. PO SCH (08:21)
[2020-03-12] MEDS: CITALOPRAM 20 MG TABLET. PO SCH (08:21)
[2020-03-12] MEDS: amLODIPine BESYLATE 10 MG TABLET PO SCH (08:21)
[2020-03-12] MEDS: fentaNYL PF VIAL 100 MCG/2 ML VIAL IV PRN ×5 (08:41→21:35)
[2020-03-12] MEDS: HYDROCORTISONE 2.5% RECTAL CREAM 30GM TUBE. RC SCH ×2 (09:00→21:00)
[2020-03-12] MEDS ORDERED: INSULIN GLARGINE SYRINGE. SQ SCH (09:00)
[2020-03-12 11:00] VITALS: BP 123/58
--- NOTE | 2020-03-12 11:37 | PDOC2 ---
CONSULT Date of Consult Date of Consult DATE: 03/12/20 TIME: 11:28 Reason for Consult Reason for Consult: ESRD Source Source: Chart review, Patient History of Present Illness Reason for Visit: Pt is a 54 year old CM with hx of ESRD on HD, CAD, ischemic CM , narcotic use, DM, HTN who presents with substernal chest pain radiating to his back since 4 am yesterday for the first time. He states it was sharp and woke him He went to HD yesterday and found to have low BP 68/42 and advised to go to ED without dialysisHe reports having cough but no sob. ? states coughing up blood. no fever, no body aches. Cardiac workup negative in ED. cxr concerning for Left basilar infiltrate. Past Medical History Cardiovascular: CAD, CHF, HTN, Hyperlipidemia, Other Pulmonary: Bronchitis, Pulmonary embolus, Pneumonia, Other CENTRAL NERVOUS SYSTEM: CVA, Periperal neuropathy, Other GI: GERD, Other Heme/Onc: Cancer Psych: Depression Renal/: Chronic renal failure Endocrine: Diabetes, Hyperparathyroidism Past Surgical History Past Surgical History: Cholecystectomy, CABG, Tonsillectomy, Other Family History Family History: Kidney Disease Social History ALCOHOL: none Drugs: Cocaine Lives: with Family Current Problem List Problem List Problems Medical Problems: (1) Chest pain Status: Acute (2) Infiltrate of left lung present on chest x-ray Status: Acute (3) Person under investigation for COVID-19 Status: Acute Current Medications Current Medications Current Medications Nitroglycerin (Nitrostat) 0.4 mg PRN Q5MIN PRN SL CP RATING > 1/10; Start 03/11/20 at 13:15; Stop 03/11/20 at 15:13; Status DC Fentanyl Citrate (Fentanyl 2ml Vial) 50 mcg PRN Q15MIN PRN IV PAIN GREATER THAN 3/10 Last administered on 03/12/20at 08:41; Start 03/11/20 at 13:15; Stop 03/12/20 at 13:14 Ceftriaxone Sodium (Rocephin) 1 gm 1X ONCE IVP Last administered on 03/11/20at 16:03; Start 03/11/20 at 15:15; Stop 03/11/20 at 15:16; Status DC Azithromycin 250 ml @ 250 mls/hr 1X ONCE IV Last administered on 03/11/20at 16:04; Start 03/11/20 at 15:15; Stop 03/11/20 at 16:14; Status DC Ondansetron HCl (Zofran) 4 mg PRN Q8HRS PRN IV NAUSEA/VOMITING; Start 03/11/20 at 15:15; Stop 03/12/20 at 15:14 Fentanyl Citrate (Fentanyl 2ml Vial) 50 mcg PRN Q1HR PRN IV PAIN Last administered on 03/12/20at 03:30; Start 03/11/20 at 15:15; Stop 03/12/20 at 15:14 Acetaminophen (Tylenol) 650 mg PRN Q4HRS PRN PO FEVER > 100.3'F; Start 03/11/20 at 15:15; Stop 03/12/20 at 15:14 Nitroglycerin (Nitrostat) 0.4 mg PRN Q5MIN PRN SL CHEST PAIN; Start 03/11/20 at 15:15; Stop 03/12/20 at 15:14 Cefepime HCl (Maxipime) 1 gm Q24H IVP Last administered on 03/11/20at 21:22; Start 03/11/20 at 20:00 Vancomycin HCl (Vanco Per Pharmacy) 1 each PRN DAILY PRN MC SEE COMMENTS Last administered on 03/11/20at 19:17; Start 03/11/20 at 15:30 Vancomycin HCl 2 gm/Sodium Chloride 500 ml @ 250 mls/hr 1X ONCE IV Last administered on 03/11/20at 17:21; Start 03/11/20 at 15:45; Stop 03/11/20 at 17:44; Status DC Amlodipine Besylate (Norvasc) 10 mg DAILY PO Last administered on 03/12/20at 08:21; Start 03/12/20 at 09:00 Aspirin (Aspirin Chewable) 81 mg DAILY PO Last administered on 03/12/20at 08:20; Start 03/12/20 at 09:00 Buspirone HCl (Buspar) 5 mg TID PO Last administered on 03/12/20at 08:14; Start 03/11/20 at 21:00 Cyclobenzaprine HCl (Flexeril) 10 mg TID PRN PRN PO MUSCLE SPASMS; Start 03/11/20 at 15:45 Divalproex Sodium (Depakote) 1,000 mg BID PO Last administered on 03/12/20at 08:15; Start 03/11/20 at 21:00 Docusate Sodium (Colace) 100 mg DAILY PO Last administered on 03/12/20at 08:21; Start 03/12/20 at 09:00 Gabapentin (Neurontin) 400 mg BID PO Last administered on 03/12/20at 08:15; Start 03/11/20 at 21:00 Lorazepam (Ativan) 0.5 mg PRN Q4HRS PRN PO ANXIETY / AGITATION; Start 03/11/20 at 16:00 Lubiprostone (Amitiza) 24 mcg DAILY PO Last administered on 03/12/20at 08:21; Start 03/12/20 at 09:00 Nitroglycerin (Nitrostat) 0.4 mg PRN Q5MIN PRN SL CHEST PAIN; Start 03/11/20 at 15:45 Oxycodone/ Acetaminophen (Percocet 10/325) 1 tab BID PO Last administered on 03/12/20at 08:16; Start 03/11/20 at 21:00 Quetiapine Fumarate (SEROquel) 100 mg QHS PO Last administered on 03/11/20at 21:20; Start 03/11/20 at 21:00 Sevelamer Carbonate (Renvela) 800 mg TIDWMEALS PO Last administered on 03/12/20at 08:14; Start 03/12/20 at 08:00 Atorvastatin Calcium (Lipitor) 80 mg QHS PO Last administered on 03/11/20at 21:19; Start 03/11/20 at 21:00; Stop 03/12/20 at 07:54; Status DC Citalopram Hydrobromide (CeleXA) 40 mg DAILY PO Last administered on 03/12/20at 08:21; Start 03/12/20 at 09:00 Hydrocortisone (Proctosol-Hc) 1 jv BID RC ; Start 03/11/20 at 21:00 Insulin Glargine (Lantus Syringe) 42 unit DAILY SQ ; Start 03/12/20 at 09:00; Stop 03/12/20 at 10:54; Status DC Metolazone (Zaroxolyn) 5 mg DAILY PO ; Start 03/12/20 at 09:00 Ondansetron HCl (Zofran Odt) 4 mg PRN Q4HRS PRN PO NAUSEA/VOMITING; Start 03/11/20 at 17:15 Pantoprazole Sodium (Protonix) 40 mg DAILYAC PO Last administered on 03/12/20at 08:15; Start 03/12/20 at 07:30 Ranolazine (Ranexa) 500 mg BID PO Last administered on 03/12/20at 08:14; Start 03/11/20 at 21:00 Trazodone HCl (Desyrel) 150 mg QHS PO Last administered on 03/11/20at 21:19; Start 03/11/20 at 21:00 Labetalol HCl (Normodyne Iv Push) 20 mg PRN Q2HR PRN IVP ELEVATED BP, SEE COMMENTS; Start 03/11/20 at 17:00 Vancomycin HCl (Vancomycin Random Level) 1 each 1X ONCE MC ; Start 03/13/20 at 06:00; Stop 03/13/20 at 06:01 Atorvastatin Calcium (Lipitor) 20 mg QHS PO ; Start 03/12/20 at 21:00 Insulin Glargine (Lantus Syringe) 42 unit QHS SQ ; Start 03/12/20 at 21:00 Active Scripts Active Reported Furosemide 80 Mg Tablet 120 Mg PO BID Tresiba (Insulin Degludec) 100 Unit/1 Ml Vial 42 Unit SQ DAILY Ativan (Lorazepam) 1 Mg Tablet 0.5 Mg PO Q4HRS Percocet 10-325 Mg Tablet (Oxycodone/Acetaminophen) 1 Each Tablet 1 Tab PO BID Buspirone Hcl 5 Mg Tablet 5 Mg PO TID Lisinopril 20 Mg Tablet 20 Mg PO DAILY Zofran (Ondansetron Hcl) 4 Mg Tablet 1 Tab PO PRN Q4HRS PRN NITROGLYCERIN SubLingual (Nitroglycerin) 0.4 Mg Tab.subl 0.4 Mg SL PRN Q5MIN PRN Hydralazine Hcl 25 Mg Tablet 1 Tab PO BID Gabapentin 400 Mg Capsule 400 Mg PO BID Citalopram Hbr (Citalopram Hydrobromide) 40 Mg Tablet 40 Mg PO HS Cyclobenzaprine Hcl 10 Mg Tablet 1 Tab PO TID PRN PRN Ranexa (Ranolazine) 1,000 Mg Tab.er.12h 0.5 Tab PO BID Seroquel (Quetiapine Fumarate) 100 Mg Tablet 1 Tab PO QHS Protonix (Pantoprazole Sodium) 20 Mg Tablet.dr 40 Mg PO DAILY Docusate Sodium 100 Mg Capsule 1 Cap PO DAILY Divalproex Sodium 500 Mg Tablet.dr 2 Tab PO BID Aspirin 81 Mg Tab.chew 1 Tab PO DAILY Amitiza (Lubiprostone) 24 Mcg Capsule 1 Cap PO DAILY Norvasc (Amlodipine Besylate) 10 Mg Tablet 10 Mg PO DAILY Lipitor (Atorvastatin Calcium) 80 Mg Tablet 80 Mg PO HS Coreg (Carvedilol) 25 Mg Tablet 12.5 Mg PO BIDWMEALS Metolazone 5 Mg Tablet 5 Mg PO DAILY Renvela (Sevelamer Carbonate) 800 Mg Tablet 800 Mg PO TIDWMEALS Trazodone Hcl 300 Mg Tablet 150 Mg PO HS Allergies Allergies: Coded Allergies: hydromorphone (Verified Allergy, Severe, Anaphylaxis, 07/16/19) morphine ok ROS Review of System Per HPI Physical Exam Physical Exam GENERAL: NAD HEENT: OM moist NECK: supple CARDIOVASCULAR: S1, S2. LUNGS: Diminished breath sounds at the base ABDOMEN: Soft, : No Hale. EXTREMITIES: no edema NEURO- Grossly normal DERM No Rash : Vital Signs Vital Signs Date Time Temp Pulse Resp B/P (MAP) Pulse Ox O2 Delivery O2 Flow Rate FiO2 03/12/20 11:00 96.8 75 19 123/58 (79) 98 Nasal Cannula 3.0 96.8 Assessment & Plan ESRD:On TTS under Dr Hernandez Missed treatment yesterday - 2/2 Low BP in th OP unit Dialysis today , ana Meraz Atypical CP Left Basilar infiltrate, ? PNA Diabetes, insulin-dependent. Chronic pain syndrome- on narcotics Hx of CAD s/p CABG Chronic congestive heart failure Hx of Depression. History of previous hip fracture from fall, left femoral fracture, had surgeries done for that. Anemia: No indication for CHLOE HTN- Hypotensive at presentation, stable currently History of drug overdose with both morphine as well as fentanyl. Seizure disorder. Labs Labs Laboratory Tests Test 03/11/20 13:35 03/11/20 15:45 03/11/20 16:15 03/11/20 19:15 White Blood Count 8.2 x10^3/uL (4.0-11.0) Red Blood Count 3.64 x10^6/uL (4.30-5.70) Hemoglobin 11.5 g/dL (13.0-17.5) Hematocrit 33.7 % (39.0-53.0) Mean Corpuscular Volume 93 fL (79-100) Mean Corpuscular Hemoglobin 32 pg (25-35) Mean Corpuscular Hemoglobin Concent 34 g/dL (31-37) Red Cell Distribution Width 14.1 % (11.5-14.5) Platelet Count 227 x10^3/uL (140-400) Neutrophils (%) (Auto) 69 % (31-73) Lymphocytes (%) (Auto) 19 % (24-48) Monocytes (%) (Auto) 9 % (0-9) Eosinophils (%) (Auto) 2 % (0-3) Basophils (%) (Auto) 0 % (0-3) Neutrophils # (Auto) 5.7 x10^3/uL (1.8-7.7) Lymphocytes # (Auto) 1.5 x10^3/uL (1.0-4.8) Monocytes # (Auto) 0.8 x10^3/uL (0.0-1.1) Eosinophils # (Auto) 0.2 x10^3/uL (0.0-0.7) Basophils # (Auto) 0.0 x10^3/uL (0.0-0.2) Sodium Level 137 mmol/L (136-145) Potassium Level 4.8 mmol/L (3.5-5.1) Chloride Level 98 mmol/L (98-107) Carbon Dioxide Level 27 mmol/L (21-32) Anion Gap 12 (6-14) Blood Urea Nitrogen 62 mg/dL (8-26) Creatinine 7.5 mg/dL (0.7-1.3) Estimated GFR (Cockcroft-Gault) 7.7 BUN/Creatinine Ratio 8 (6-20) Glucose Level 106 mg/dL (70-99) Calcium Level 7.5 mg/dL (8.5-10.1) Magnesium Level 1.8 mg/dL (1.8-2.4) Ferritin 686 ng/mL (26-388) Total Bilirubin 0.4 mg/dL (0.2-1.0) Aspartate Amino Transf (AST/SGOT) 18 U/L (15-37) Alanine Aminotransferase (ALT/SGPT) 23 U/L (16-63) Alkaline Phosphatase 195 U/L (46-116) Creatine Kinase 113 U/L (39-308) Creatine Kinase MB (Mass) 2.5 ng/mL (0.0-3.6) Creatine Kinase MB Relative Index 2.2 % (0-4) Troponin I Quantitative 0.024 ng/mL (0.000-0.055) 0.023 ng/mL (0.000-0.055) 0.019 ng/mL (0.000-0.055) C-Reactive Protein, Quantitative 2.5 mg/L (0-3.3) EP-Lkg-J-Type Natriuretic Peptide 6343 pg/mL (0-124) Total Protein 6.8 g/dL (6.4-8.2) Albumin 2.9 g/dL (3.4-5.0) Albumin/Globulin Ratio 0.7 (1.0-1.7) Thyroid Stimulating Hormone (TSH) 1.658 uIU/mL (0.358-3.74) Lactic Acid Level 0.8 mmol/L (0.4-2.0) Test 03/11/20 21:12 03/12/20 03:35 03/12/20 07:31 03/12/20 11:25 Glucose (Fingerstick) 135 mg/dL (70-99) 124 mg/dL (70-99) 223 mg/dL (70-99) White Blood Count 7.1 x10^3/uL (4.0-11.0) Red Blood Count 3.61 x10^6/uL (4.30-5.70) Hemoglobin 11.5 g/dL (13.0-17.5) Hematocrit 34.0 % (39.0-53.0) Mean Corpuscular Volume 94 fL (79-100) Mean Corpuscular Hemoglobin 32 pg (25-35) Mean Corpuscular Hemoglobin Concent 34 g/dL (31-37) Red Cell Distribution Width 14.5 % (11.5-14.5) Platelet Count 200 x10^3/uL (140-400) Neutrophils (%) (Auto) 51 % (31-73) Lymphocytes (%) (Auto) 37 % (24-48) Monocytes (%) (Auto) 9 % (0-9) Eosinophils (%) (Auto) 3 % (0-3) Basophils (%) (Auto) 0 % (0-3) Neutrophils # (Auto) 3.6 x10^3/uL (1.8-7.7) Lymphocytes # (Auto) 2.6 x10^3/uL (1.0-4.8) Monocytes # (Auto) 0.6 x10^3/uL (0.0-1.1) Eosinophils # (Auto) 0.2 x10^3/uL (0.0-0.7) Basophils # (Auto) 0.0 x10^3/uL (0.0-0.2) Triglycerides Level 253 mg/dL (0-150) Cholesterol Level 164 mg/dL (0-200) LDL Cholesterol, Calculated 85 mg/dL (0-100) VLDL Cholesterol, Calculated 51 mg/dL (0-40) Non-HDL Cholesterol Calculated 136 mg/dL (0-129) HDL Cholesterol 28 mg/dL (40-60) Cholesterol/HDL Ratio 5.9 Laboratory Tests Test 03/11/20 13:35 03/11/20 15:45 03/11/20 16:15 03/11/20 19:15 White Blood Count 8.2 x10^3/uL (4.0-11.0) Red Blood Count 3.64 x10^6/uL (4.30-5.70) Hemoglobin 11.5 g/dL (13.0-17.5) Hematocrit 33.7 % (39.0-53.0) Mean Corpuscular Volume 93 fL (79-100) Mean Corpuscular Hemoglobin 32 pg (25-35) Mean Corpuscular Hemoglobin Concent 34 g/dL (31-37) Red Cell Distribution Width 14.1 % (11.5-14.5) Platelet Count 227 x10^3/uL (140-400) Neutrophils (%) (Auto) 69 % (31-73) Lymphocytes (%) (Auto) 19 % (24-48) Monocytes (%) (Auto) 9 % (0-9) Eosinophils (%) (Auto) 2 % (0-3) Basophils (%) (Auto) 0 % (0-3) Neutrophils # (Auto) 5.7 x10^3/uL (1.8-7.7) Lymphocytes # (Auto) 1.5 x10^3/uL (1.0-4.8) Monocytes # (Auto) 0.8 x10^3/uL (0.0-1.1) Eosinophils # (Auto) 0.2 x10^3/uL (0.0-0.7) Basophils # (Auto) 0.0 x10^3/uL (0.0-0.2) Sodium Level 137 mmol/L (136-145) Potassium Level 4.8 mmol/L (3.5-5.1) Chloride Level 98 mmol/L (98-107) Carbon Dioxide Level 27 mmol/L (21-32) Anion Gap 12 (6-14) Blood Urea Nitrogen 62 mg/dL (8-26) Creatinine 7.5 mg/dL (0.7-1.3) Estimated GFR (Cockcroft-Gault) 7.7 BUN/Creatinine Ratio 8 (6-20) Glucose Level 106 mg/dL (70-99) Calcium Level 7.5 mg/dL (8.5-10.1) Magnesium Level 1.8 mg/dL (1.8-2.4) Ferritin 686 ng/mL (26-388) Total Bilirubin 0.4 mg/dL (0.2-1.0) Aspartate Amino Transf (AST/SGOT) 18 U/L (15-37) Alanine Aminotransferase (ALT/SGPT) 23 U/L (16-63) Alkaline Phosphatase 195 U/L (46-116) Creatine Kinase 113 U/L (39-308) Creatine Kinase MB (Mass) 2.5 ng/mL (0.0-3.6) Creatine Kinase MB Relative Index 2.2 % (0-4) Troponin I Quantitative 0.024 ng/mL (0.000-0.055) 0.023 ng/mL (0.000-0.055) 0.019 ng/mL (0.000-0.055) C-Reactive Protein, Quantitative 2.5 mg/L (0-3.3) RP-Sxt-L-Type Natriuretic Peptide 6343 pg/mL (0-124) Total Protein 6.8 g/dL (6.4-8.2) Albumin 2.9 g/dL (3.4-5.0) Albumin/Globulin Ratio 0.7 (1.0-1.7) Thyroid Stimulating Hormone (TSH) 1.658 uIU/mL (0.358-3.74) Lactic Acid Level 0.8 mmol/L (0.4-2.0) Test 03/11/20 21:12 03/12/20 03:35 03/12/20 07:31 03/12/20 11:25 Glucose (Fingerstick) 135 mg/dL (70-99) 124 mg/dL (70-99) 223 mg/dL (70-99) White Blood Count 7.1 x10^3/uL (4.0-11.0) Red Blood Count 3.61 x10^6/uL (4.30-5.70) Hemoglobin 11.5 g/dL (13.0-17.5) Hematocrit 34.0 % (39.0-53.0) Mean Corpuscular Volume 94 fL (79-100) Mean Corpuscular Hemoglobin 32 pg (25-35) Mean Corpuscular Hemoglobin Concent 34 g/dL (31-37) Red Cell Distribution Width 14.5 % (11.5-14.5) Platelet Count 200 x10^3/uL (140-400) Neutrophils (%) (Auto) 51 % (31-73) Lymphocytes (%) (Auto) 37 % (24-48) Monocytes (%) (Auto) 9 % (0-9) Eosinophils (%) (Auto) 3 % (0-3) Basophils (%) (Auto) 0 % (0-3) Neutrophils # (Auto) 3.6 x10^3/uL (1.8-7.7) Lymphocytes # (Auto) 2.6 x10^3/uL (1.0-4.8) Monocytes # (Auto) 0.6 x10^3/uL (0.0-1.1) Eosinophils # (Auto) 0.2 x10^3/uL (0.0-0.7) Basophils # (Auto) 0.0 x10^3/uL (0.0-0.2) Triglycerides Level 253 mg/dL (0-150) Cholesterol Level 164 mg/dL (0-200) LDL Cholesterol, Calculated 85 mg/dL (0-100) VLDL Cholesterol, Calculated 51 mg/dL (0-40) Non-HDL Cholesterol Calculated 136 mg/dL (0-129) HDL Cholesterol 28 mg/dL (40-60) Cholesterol/HDL Ratio 5.9 Review All relevant outside records, renal labs, imaging studies, telemetry/EKG's were reviewed. Images Images CxR-IMPRESSION: Linear left lung base airspace opacity likely atelectasis or infiltrates. JEAN PAUL CESPEDES MD March 12, 2020 11:37
--- NOTE | 2020-03-12 11:37 | NUR ---
IP: Pt is COVID negative.
[2020-03-12] MEDS: metOLazone 2.5 MG TABLET PO SCH (11:54)
[2020-03-12] MEDS: LIDOCAINE (700MG/PATCH) PATCH. TD SCH (11:54)
[2020-03-12] MEDS: guaiFENesin DM 200MG/20MG 10 ML SYRUP PO PRN (11:54)
--- NOTE | 2020-03-12 12:51 | NUR ---
ANA following. Discussed with RN, pt does dialysis T, Th, - RN advised she would ask pt which location. PT is COVID-19 negative, uses oxygen at home. ANA will continue to follow. Addendum: 03/12/20 at 1556 by SURJIT PEREZ Pt does dialysis at [facility] (ph: [phone], fax: [phone]).
--- NOTE | 2020-03-12 13:08 | PDOC ---
KALIN DIEHL ADVERTISING AGENCY MANAGER 03/12/20 1308: CARDIO Progress Notes Date and Time Date of Service 03/12/2020 Time of Evaluation 1200 Subjective Subjective: No Chest Pain, No shortness of breath, No Palpitations Vitals Vitals Vital Signs Date Time Temp Pulse Resp B/P (MAP) Pulse Ox O2 Delivery O2 Flow Rate FiO2 03/12/20 11:49 20 98 Nasal Cannula 3.0 03/12/20 11:00 96.8 75 123/58 (79) 96.8 Weight Weight [ ] Input and Output Intake and Output Intake and Output 03/12/20 07:00 Intake Total 1110 ml Output Total 600 ml Balance 510 ml Intake Oral 360 ml IV Total 750 ml Output Urine Total 600 ml Laboratory Labs Laboratory Tests Test 03/11/20 13:35 03/11/20 15:45 03/11/20 15:49 03/11/20 16:15 White Blood Count 8.2 x10^3/uL (4.0-11.0) Red Blood Count 3.64 x10^6/uL (4.30-5.70) Hemoglobin 11.5 g/dL (13.0-17.5) Hematocrit 33.7 % (39.0-53.0) Mean Corpuscular Volume 93 fL (79-100) Mean Corpuscular Hemoglobin 32 pg (25-35) Mean Corpuscular Hemoglobin Concent 34 g/dL (31-37) Red Cell Distribution Width 14.1 % (11.5-14.5) Platelet Count 227 x10^3/uL (140-400) Neutrophils (%) (Auto) 69 % (31-73) Lymphocytes (%) (Auto) 19 % (24-48) Monocytes (%) (Auto) 9 % (0-9) Eosinophils (%) (Auto) 2 % (0-3) Basophils (%) (Auto) 0 % (0-3) Neutrophils # (Auto) 5.7 x10^3/uL (1.8-7.7) Lymphocytes # (Auto) 1.5 x10^3/uL (1.0-4.8) Monocytes # (Auto) 0.8 x10^3/uL (0.0-1.1) Eosinophils # (Auto) 0.2 x10^3/uL (0.0-0.7) Basophils # (Auto) 0.0 x10^3/uL (0.0-0.2) Sodium Level 137 mmol/L (136-145) Potassium Level 4.8 mmol/L (3.5-5.1) Chloride Level 98 mmol/L (98-107) Carbon Dioxide Level 27 mmol/L (21-32) Anion Gap 12 (6-14) Blood Urea Nitrogen 62 mg/dL (8-26) Creatinine 7.5 mg/dL (0.7-1.3) Estimated GFR (Cockcroft-Gault) 7.7 BUN/Creatinine Ratio 8 (6-20) Glucose Level 106 mg/dL (70-99) Calcium Level 7.5 mg/dL (8.5-10.1) Magnesium Level 1.8 mg/dL (1.8-2.4) Ferritin 686 ng/mL (26-388) Total Bilirubin 0.4 mg/dL (0.2-1.0) Aspartate Amino Transf (AST/SGOT) 18 U/L (15-37) Alanine Aminotransferase (ALT/SGPT) 23 U/L (16-63) Alkaline Phosphatase 195 U/L (46-116) Creatine Kinase 113 U/L (39-308) Creatine Kinase MB (Mass) 2.5 ng/mL (0.0-3.6) Creatine Kinase MB Relative Index 2.2 % (0-4) Troponin I Quantitative 0.024 ng/mL (0.000-0.055) 0.023 ng/mL (0.000-0.055) C-Reactive Protein, Quantitative 2.5 mg/L (0-3.3) JI-Oot-S-Type Natriuretic Peptide 6343 pg/mL (0-124) Total Protein 6.8 g/dL (6.4-8.2) Albumin 2.9 g/dL (3.4-5.0) Albumin/Globulin Ratio 0.7 (1.0-1.7) Thyroid Stimulating Hormone (TSH) 1.658 uIU/mL (0.358-3.74) Lactic Acid Level 0.8 mmol/L (0.4-2.0) Coronavirus (COVID-19)(PCR) See separate report Test 03/11/20 19:15 03/11/20 21:12 03/12/20 03:35 03/12/20 07:31 Troponin I Quantitative 0.019 ng/mL (0.000-0.055) Glucose (Fingerstick) 135 mg/dL (70-99) 124 mg/dL (70-99) White Blood Count 7.1 x10^3/uL (4.0-11.0) Red Blood Count 3.61 x10^6/uL (4.30-5.70) Hemoglobin 11.5 g/dL (13.0-17.5) Hematocrit 34.0 % (39.0-53.0) Mean Corpuscular Volume 94 fL (79-100) Mean Corpuscular Hemoglobin 32 pg (25-35) Mean Corpuscular Hemoglobin Concent 34 g/dL (31-37) Red Cell Distribution Width 14.5 % (11.5-14.5) Platelet Count 200 x10^3/uL (140-400) Neutrophils (%) (Auto) 51 % (31-73) Lymphocytes (%) (Auto) 37 % (24-48) Monocytes (%) (Auto) 9 % (0-9) Eosinophils (%) (Auto) 3 % (0-3) Basophils (%) (Auto) 0 % (0-3) Neutrophils # (Auto) 3.6 x10^3/uL (1.8-7.7) Lymphocytes # (Auto) 2.6 x10^3/uL (1.0-4.8) Monocytes # (Auto) 0.6 x10^3/uL (0.0-1.1) Eosinophils # (Auto) 0.2 x10^3/uL (0.0-0.7) Basophils # (Auto) 0.0 x10^3/uL (0.0-0.2) Triglycerides Level 253 mg/dL (0-150) Cholesterol Level 164 mg/dL (0-200) LDL Cholesterol, Calculated 85 mg/dL (0-100) VLDL Cholesterol, Calculated 51 mg/dL (0-40) Non-HDL Cholesterol Calculated 136 mg/dL (0-129) HDL Cholesterol 28 mg/dL (40-60) Cholesterol/HDL Ratio 5.9 Test 03/12/20 11:25 Glucose (Fingerstick) 223 mg/dL (70-99) Physical Exam HEENT: Neck Supple W Full Motion Chest: Symmetric LUNGS: Clear to Auscultation Heart: S1S2, RRR (SR no ectopies) Abdomen: Soft N/T Extremities: No Calf Tenderness Neurology: alert, oriented, follow commands Assessment Assessment 1. Atypical CP: trops nml. EKG SR without acute changes. Possibly GI, esophageal spasm? 2. CAD s/p CABG. Cath 2017 with patent grafts as noted above. Recent MPI as above 4. HTN: controlled 5. Chronic HFpEF: compensated 6. Hyperlipidemia; statin therapy 7. Diabetes, II 8. ESRD on HD 9. Brief hypotension: suspect vasovagal response from the pain, reported only during HD 10. Suspect COPD with continued tobaccoism Recommendations 1. ASA, Continue secondary prevention measures. 2. Fluid off-loading via HD 3. May DC per cardiac standpoint. Follow up with cardiology MICHELLE WILLIS MD 03/12/20 5614: CARDIO Progress Notes Assessment Assessment Patient seen and examined. Agree with UNIFORM CAP OPERATOR's assessment and plan. CP atypical and most prob GI etiology Chr diastolic HF compensated Recent MPI results noted OK for DC from cardiac standpoint KALIN DIEHL APRN March 12, 2020 13:08 MICHELLE WILLIS MD March 12, 2020 21:44
[2020-03-12] MEDS ORDERED: IV NORMAL SALINE 1000ML BAG 1,000 ML IV PRN ×2 (14:23)
[2020-03-12] MEDS ORDERED: diphenhydrAMINE 50 MG/ML VIAL IV PRN ×2 (14:30)
[2020-03-12] MEDS ORDERED: ALBUMIN HUMAN 25% 200 ML IV PRN (14:30)
[2020-03-12] MEDS ORDERED: ACETAMINOPHEN 500 MG TABLET PO PRN (14:30)
[2020-03-12] MEDS ORDERED: DIALYSIS PATIENT. MC PRN (14:30)
[2020-03-12] MEDS: VANCOMYCIN PER PHARMACY MC PRN (14:31)
--- NOTE | 2020-03-12 17:31 | NUR ---
PT returned to room 646 from Hemodialysis on 5th floor.
[2020-03-12] MEDS: CYCLOBENZAPRINE 10 MG TABLET. PO PRN (17:40)
[2020-03-12] MEDS: oxyCODONE/APAP 10/325 1 TAB TABLET PO PRN (17:41)
[2020-03-12 19:52] VITALS: BP 139/71
[2020-03-12] MEDS: PATCH REMOVAL. MC SCH (21:00)
[2020-03-12] MEDS: LACTOBACILLUS RHAMNOSUS GG 1 CAPSULE. PO SCH (21:36)
[2020-03-12] MEDS: QUEtiapine 100 MG TABLET. PO SCH (21:38)
[2020-03-12] MEDS: ATORVASTATIN CALCIUM 20 MG TABLET PO SCH (21:39)
[2020-03-12] MEDS: traZODone 50 MG TABLET. PO SCH (21:39)
[2020-03-12] MEDS: INSULIN GLARGINE SYRINGE. SQ SCH (21:53)
[2020-03-12] MEDS: CEFEPIME HCL IV Push 1 GM VIAL. IVP SCH (21:54)
[2020-03-12 23:19] VITALS: BP 144/73
[2020-03-13 03:55] VITALS: BP 121/59
[2020-03-13] MEDS: fentaNYL PF VIAL 100 MCG/2 ML VIAL IV PRN ×5 (04:19→20:47)
[2020-03-13] MEDS: oxyCODONE/APAP 10/325 1 TAB TABLET PO PRN ×3 (04:48→19:14)
[2020-03-13 05:37] LABS: CALCIUM 7.5 mg/dL (8.5-10.1); CREATININE 7.4 mg/dL (0.7-1.3); GFR 7.8; POTASSIUM 5.3 mmol/L (3.5-5.1)
[2020-03-13] MEDS ORDERED: VANCOMYCIN RANDOM LEVEL. MC ONE (06:00)
[2020-03-13] MEDS ORDERED: IV NORMAL SALINE 1000ML BAG 1,000 ML IV PRN ×2 (07:00)
[2020-03-13 07:40] VITALS: BP 154/60
--- NOTE | 2020-03-13 08:00 | NUR ---
PT transported to the 5th floor for Hemodialysis.
[2020-03-13] MEDS ORDERED: DIALYSIS PATIENT. MC PRN ×2 (08:30)
[2020-03-13] MEDS: VANCOMYCIN PER PHARMACY MC PRN (08:58)
--- NOTE | 2020-03-13 08:58 | NUR ---
Pharmacy Vancomycin Dosing Note S: Consulted to monitor and dose vancomycin started 03/11/20. O: JULIAN GARCÍA is a 54 year old M with HCAP. Other Antibiotics: CEFEPIME 1G IV Q24HRS LABS: Last BUN: 57 Last Creatinine: 7.4 Creatinine Clearance: ESRD on HD (TThSa) Last WBC: 7.1 Last Procalcitonin: 0.18 Tmax (past 24 hours): 98.1 Microbiology: 03/11: blood cx: NGTD 03/12: sputum cx: pending I/O: 930/ -- (2 VOIDS) Drug Levels: Last Random level: 14.2 on 03/13/20 at 0305 Last dose given 03/11/20 at 1721 Vancomycin Dosing: Target Trough: 15-20 A: Based on: patient's HD schedule, random level and weight. P: 1. Re-dose Vancomycin 1750 mg IV One Time after HD today. 2. Follow up Random level on 03/15/20 at 0500 3. Pharmacy will continue to monitor, follow and adjust therapy as needed. EDNA PAZ RPH, 03/13/20 3752
[2020-03-13] MEDS: HYDROCORTISONE 2.5% RECTAL CREAM 30GM TUBE. RC SCH ×2 (09:00→21:00)
[2020-03-13] MEDS: DIVALPROEX DELAYED RELEASE 500 MG TABLET.DR. PO SCH ×2 (09:00→20:48)
[2020-03-13] MEDS: DOCUSATE SODIUM 100 MG CAPSULE. PO SCH (09:00)
--- NOTE | 2020-03-13 09:00 | PDOC ---
PROGRESS NOTES Chief Complaint Chief Complaint Atypical CP - neg trop and negative EKG. Likely costochondritis from cough and left basilar infiltrate Left Basilar infiltrate, ? PNA - treating as HCAP, will get chest CT CAD s/p CABG. Cath 2016 with patent grafts as noted above. HTN, now hypotensive Acute on chronic diastolic CHF; Echo 07/19 with preserved LV systolic function Hyperlipidemia Diabetes, II--insulin dependent ESRD on HD History of Present Illness History of Present Illness Mr Bedolla 54 yo M w/ PMHx CAD, ischemic CM, ESRD on HD, narcotic use, DM, HTN who presents with substernal chest pain radiating to his back since last night at 4 am for the first time. states felt as sharp ches pain that woke him up at night. states chest pain similar to chest pain he experienced when he had TN in past. patient went to HD this AM and found to have low BP 68/42. did not get HD done and instead advised to go to ED. patient took all his meds as prescribed this AM. patient noted to have cough for several weeks. no sob. states coughing up blood. no fever, no body aches. cardiac workup negative in ED. cxr concerning for Left basilar infiltrate. noted elevated bnp [id number] esr 686. normal trop. normal tsh. Consults: Cardiology, nephrology 03/12: He relates to me he was on hospice until 2 months ago. Now he is looking to have a PD catheter reinserted. He still has left-sided reproducible chest pain worse on deep inspiration. Pro calcitonin elevated is on cefepime and vancomycin empirically. Cardiology sees no need for further cardiac work-up at this point ruled out TN. His blood pressure has improved slightly. Seen on dialysis, still with pain. K 5.3 this morning. Mild CP and SOB. Weight up 5kg from dry weight of 110kg. Vitals Vitals Vital Signs Date Time Temp Pulse Resp B/P (MAP) Pulse Ox O2 Delivery O2 Flow Rate FiO2 03/13/20 07:48 Room Air 03/13/20 07:40 98.1 82 20 154/60 (91) 93 98.1 03/13/20 04:48 3.0 Physical Exam General: Alert, Oriented X3, Cooperative, No acute distress Heart: Regular rate (SR), Normal S1, Normal S2, No murmurs Abdomen: Soft, No tenderness Extremities: No cyanosis, No edema Skin: No breakdown, No significant lesion Labs LABS Laboratory Tests Test 03/12/20 11:25 03/13/20 03:05 Glucose (Fingerstick) 223 mg/dL (70-99) Sodium Level 137 mmol/L (136-145) Potassium Level 5.3 mmol/L (3.5-5.1) Chloride Level 98 mmol/L (98-107) Carbon Dioxide Level 30 mmol/L (21-32) Anion Gap 9 (6-14) Blood Urea Nitrogen 57 mg/dL (8-26) Creatinine 7.4 mg/dL (0.7-1.3) Estimated GFR (Cockcroft-Gault) 7.8 Glucose Level 252 mg/dL (70-99) Calcium Level 7.5 mg/dL (8.5-10.1) Random Vancomycin Level 14.2 mcg/mL Assessment and Plan Assessmemt and Plan Problems Medical Problems: (1) Chest pain Status: Acute (2) Infiltrate of left lung present on chest x-ray Status: Acute (3) Person under investigation for COVID-19 Status: Acute Comment Review of Relevant I have reviewed the following items nelda (where applicable) has been applied. Labs Laboratory Tests Test 03/11/20 13:35 03/11/20 15:45 03/11/20 15:49 03/11/20 16:15 White Blood Count 8.2 x10^3/uL (4.0-11.0) Red Blood Count 3.64 x10^6/uL (4.30-5.70) Hemoglobin 11.5 g/dL (13.0-17.5) Hematocrit 33.7 % (39.0-53.0) Mean Corpuscular Volume 93 fL (79-100) Mean Corpuscular Hemoglobin 32 pg (25-35) Mean Corpuscular Hemoglobin Concent 34 g/dL (31-37) Red Cell Distribution Width 14.1 % (11.5-14.5) Platelet Count 227 x10^3/uL (140-400) Neutrophils (%) (Auto) 69 % (31-73) Lymphocytes (%) (Auto) 19 % (24-48) Monocytes (%) (Auto) 9 % (0-9) Eosinophils (%) (Auto) 2 % (0-3) Basophils (%) (Auto) 0 % (0-3) Neutrophils # (Auto) 5.7 x10^3/uL (1.8-7.7) Lymphocytes # (Auto) 1.5 x10^3/uL (1.0-4.8) Monocytes # (Auto) 0.8 x10^3/uL (0.0-1.1) Eosinophils # (Auto) 0.2 x10^3/uL (0.0-0.7) Basophils # (Auto) 0.0 x10^3/uL (0.0-0.2) Sodium Level 137 mmol/L (136-145) Potassium Level 4.8 mmol/L (3.5-5.1) Chloride Level 98 mmol/L (98-107) Carbon Dioxide Level 27 mmol/L (21-32) Anion Gap 12 (6-14) Blood Urea Nitrogen 62 mg/dL (8-26) Creatinine 7.5 mg/dL (0.7-1.3) Estimated GFR (Cockcroft-Gault) 7.7 BUN/Creatinine Ratio 8 (6-20) Glucose Level 106 mg/dL (70-99) Calcium Level 7.5 mg/dL (8.5-10.1) Magnesium Level 1.8 mg/dL (1.8-2.4) Ferritin 686 ng/mL (26-388) Total Bilirubin 0.4 mg/dL (0.2-1.0) Aspartate Amino Transf (AST/SGOT) 18 U/L (15-37) Alanine Aminotransferase (ALT/SGPT) 23 U/L (16-63) Alkaline Phosphatase 195 U/L (46-116) Creatine Kinase 113 U/L (39-308) Creatine Kinase MB (Mass) 2.5 ng/mL (0.0-3.6) Creatine Kinase MB Relative Index 2.2 % (0-4) Troponin I Quantitative 0.024 ng/mL (0.000-0.055) 0.023 ng/mL (0.000-0.055) C-Reactive Protein, Quantitative 2.5 mg/L (0-3.3) OK-Ffe-T-Type Natriuretic Peptide 6343 pg/mL (0-124) Total Protein 6.8 g/dL (6.4-8.2) Albumin 2.9 g/dL (3.4-5.0) Albumin/Globulin Ratio 0.7 (1.0-1.7) Thyroid Stimulating Hormone (TSH) 1.658 uIU/mL (0.358-3.74) Lactic Acid Level 0.8 mmol/L (0.4-2.0) Coronavirus (COVID-19)(PCR) See separate report Test 03/11/20 19:15 03/11/20 21:12 03/12/20 03:35 03/12/20 07:31 Troponin I Quantitative 0.019 ng/mL (0.000-0.055) Glucose (Fingerstick) 135 mg/dL (70-99) 124 mg/dL (70-99) White Blood Count 7.1 x10^3/uL (4.0-11.0) Red Blood Count 3.61 x10^6/uL (4.30-5.70) Hemoglobin 11.5 g/dL (13.0-17.5) Hematocrit 34.0 % (39.0-53.0) Mean Corpuscular Volume 94 fL (79-100) Mean Corpuscular Hemoglobin 32 pg (25-35) Mean Corpuscular Hemoglobin Concent 34 g/dL (31-37) Red Cell Distribution Width 14.5 % (11.5-14.5) Platelet Count 200 x10^3/uL (140-400) Neutrophils (%) (Auto) 51 % (31-73) Lymphocytes (%) (Auto) 37 % (24-48) Monocytes (%) (Auto) 9 % (0-9) Eosinophils (%) (Auto) 3 % (0-3) Basophils (%) (Auto) 0 % (0-3) Neutrophils # (Auto) 3.6 x10^3/uL (1.8-7.7) Lymphocytes # (Auto) 2.6 x10^3/uL (1.0-4.8) Monocytes # (Auto) 0.6 x10^3/uL (0.0-1.1) Eosinophils # (Auto) 0.2 x10^3/uL (0.0-0.7) Basophils # (Auto) 0.0 x10^3/uL (0.0-0.2) Triglycerides Level 253 mg/dL (0-150) Cholesterol Level 164 mg/dL (0-200) LDL Cholesterol, Calculated 85 mg/dL (0-100) VLDL Cholesterol, Calculated 51 mg/dL (0-40) Non-HDL Cholesterol Calculated 136 mg/dL (0-129) HDL Cholesterol 28 mg/dL (40-60) Cholesterol/HDL Ratio 5.9 Procalcitonin 0.18 ng/mL (0.00-0.10) Test 03/12/20 11:25 03/13/20 03:05 Glucose (Fingerstick) 223 mg/dL (70-99) Sodium Level 137 mmol/L (136-145) Potassium Level 5.3 mmol/L (3.5-5.1) Chloride Level 98 mmol/L (98-107) Carbon Dioxide Level 30 mmol/L (21-32) Anion Gap 9 (6-14) Blood Urea Nitrogen 57 mg/dL (8-26) Creatinine 7.4 mg/dL (0.7-1.3) Estimated GFR (Cockcroft-Gault) 7.8 Glucose Level 252 mg/dL (70-99) Calcium Level 7.5 mg/dL (8.5-10.1) Random Vancomycin Level 14.2 mcg/mL Laboratory Tests Test 03/12/20 11:25 03/13/20 03:05 Glucose (Fingerstick) 223 mg/dL (70-99) Sodium Level 137 mmol/L (136-145) Potassium Level 5.3 mmol/L (3.5-5.1) Chloride Level 98 mmol/L (98-107) Carbon Dioxide Level 30 mmol/L (21-32) Anion Gap 9 (6-14) Blood Urea Nitrogen 57 mg/dL (8-26) Creatinine 7.4 mg/dL (0.7-1.3) Estimated GFR (Cockcroft-Gault) 7.8 Glucose Level 252 mg/dL (70-99) Calcium Level 7.5 mg/dL (8.5-10.1) Random Vancomycin Level 14.2 mcg/mL Microbiology 03/11/20 Blood Culture - Preliminary, Resulted NO GROWTH AFTER 1 DAY Medications Current Medications Nitroglycerin (Nitrostat) 0.4 mg PRN Q5MIN PRN SL CP RATING > 1/10; Start 03/11/20 at 13:15; Stop 03/11/20 at 15:13; Status DC Fentanyl Citrate (Fentanyl 2ml Vial) 50 mcg PRN Q15MIN PRN IV PAIN GREATER THAN 3/10 Last administered on 03/12/20at 08:41; Start 03/11/20 at 13:15; Stop 03/12/20 at 13:14; Status DC Ceftriaxone Sodium (Rocephin) 1 gm 1X ONCE IVP Last administered on 03/11/20at 16:03; Start 03/11/20 at 15:15; Stop 03/11/20 at 15:16; Status DC Azithromycin 250 ml @ 250 mls/hr 1X ONCE IV Last administered on 03/11/20at 16:04; Start 03/11/20 at 15:15; Stop 03/11/20 at 16:14; Status DC Ondansetron HCl (Zofran) 4 mg PRN Q8HRS PRN IV NAUSEA/VOMITING; Start 03/11/20 at 15:15; Stop 03/12/20 at 15:14; Status DC Fentanyl Citrate (Fentanyl 2ml Vial) 50 mcg PRN Q1HR PRN IV PAIN Last administered on 03/12/20at 03:30; Start 03/11/20 at 15:15; Stop 03/12/20 at 11:41; Status DC Acetaminophen (Tylenol) 650 mg PRN Q4HRS PRN PO FEVER > 100.3'F; Start 03/11/20 at 15:15; Stop 03/12/20 at 15:14; Status DC Nitroglycerin (Nitrostat) 0.4 mg PRN Q5MIN PRN SL CHEST PAIN; Start 03/11/20 at 15:15; Stop 03/12/20 at 14:29; Status DC Cefepime HCl (Maxipime) 1 gm Q24H IVP Last administered on 03/12/20at 21:54; Start 03/11/20 at 20:00 Vancomycin HCl (Vanco Per Pharmacy) 1 each PRN DAILY PRN MC SEE COMMENTS Last administered on 03/12/20at 14:31; Start 03/11/20 at 15:30 Vancomycin HCl 2 gm/Sodium Chloride 500 ml @ 250 mls/hr 1X ONCE IV Last administered on 03/11/20at 17:21; Start 03/11/20 at 15:45; Stop 03/11/20 at 17:44; Status DC Amlodipine Besylate (Norvasc) 10 mg DAILY PO Last administered on 03/12/20 08:21; Start 03/12/20 at 09:00 Aspirin (Aspirin Chewable) 81 mg DAILY PO Last administered on 03/12/20 08:20; Start 03/12/20 at 09:00 Buspirone HCl (Buspar) 5 mg TID PO Last administered on 03/12/20 21:35; Start 03/11/20 at 21:00 Cyclobenzaprine HCl (Flexeril) 10 mg TID PRN PRN PO MUSCLE SPASMS Last administered on 03/12/20 17:40; Start 03/11/20 at 15:45 Divalproex Sodium (Depakote) 1,000 mg BID PO Last administered on 03/12/20 21:48; Start 03/11/20 at 21:00 Docusate Sodium (Colace) 100 mg DAILY PO Last administered on 03/12/20 08:21; Start 03/12/20 at 09:00 Gabapentin (Neurontin) 400 mg BID PO Last administered on 03/12/20 21:38; Start 03/11/20 at 21:00 Lorazepam (Ativan) 0.5 mg PRN Q4HRS PRN PO ANXIETY / AGITATION; Start 03/11/20 at 16:00 Lubiprostone (Amitiza) 24 mcg DAILY PO Last administered on 03/12/20 08:21; Start 03/12/20 at 09:00 Nitroglycerin (Nitrostat) 0.4 mg PRN Q5MIN PRN SL CHEST PAIN; Start 03/11/20 at 15:45 Oxycodone/ Acetaminophen (Percocet 10/325) 1 tab BID PO Last administered on 03/12/20 08:16; Start 03/11/20 at 21:00; Stop 03/12/20 at 11:41; Status DC Quetiapine Fumarate (SEROquel) 100 mg QHS PO Last administered on 03/12/20 21:38; Start 03/11/20 at 21:00 Sevelamer Carbonate (Renvela) 800 mg TIDWMEALS PO Last administered on 03/12/20 17:41; Start 03/12/20 at 08:00 Atorvastatin Calcium (Lipitor) 80 mg QHS PO Last administered on 5/12/20at 21:19; Start 03/11/20 at 21:00; Stop 03/12/20 at 07:54; Status DC Citalopram Hydrobromide (CeleXA) 40 mg DAILY PO Last administered on 03/12/20at 08:21; Start 03/12/20 at 09:00 Hydrocortisone (Proctosol-Hc) 1 jv BID RC ; Start 03/11/20 at 21:00 Insulin Glargine (Lantus Syringe) 42 unit DAILY SQ ; Start 03/12/20 at 09:00; Stop 03/12/20 at 10:54; Status DC Metolazone (Zaroxolyn) 5 mg DAILY PO Last administered on 03/12/20at 11:54; Start 03/12/20 at 09:00 Ondansetron HCl (Zofran Odt) 4 mg PRN Q4HRS PRN PO NAUSEA/VOMITING; Start 03/11/20 at 17:15 Pantoprazole Sodium (Protonix) 40 mg DAILYAC PO Last administered on 03/12/20at 08:15; Start 03/12/20 at 07:30 Ranolazine (Ranexa) 500 mg BID PO Last administered on 03/12/20at 21:37; Start 03/11/20 at 21:00 Trazodone HCl (Desyrel) 150 mg QHS PO Last administered on 03/12/20at 21:39; Start 03/11/20 at 21:00 Labetalol HCl (Normodyne Iv Push) 20 mg PRN Q2HR PRN IVP ELEVATED BP, SEE C OMMENTS; Start 03/11/20 at 17:00 Vancomycin HCl (Vancomycin Random Level) 1 each 1X ONCE MC Last administered on 03/13/20at 06:00; Start 03/13/20 at 06:00; Stop 03/13/20 at 06:01; Status DC Atorvastatin Calcium (Lipitor) 20 mg QHS PO Last administered on 03/12/20at 21:39; Start 03/12/20 at 21:00 Insulin Glargine (Lantus Syringe) 42 unit QHS SQ Last administered on 03/12/20at 21:53; Start 03/12/20 at 21:00 Fentanyl Citrate (Fentanyl 2ml Vial) 50 mcg PRN Q3HRS PRN IV PAIN Last administered on 03/13/20at 07:48; Start 03/12/20 at 11:45 Oxycodone/ Acetaminophen (Percocet 10/325) 1 tab PRN Q6HRS PRN PO PAIN Last administered on 03/13/20at 04:48; Start 03/12/20 at 14:00 Guaifenesin (Robitussin Dm) 10 ml PRN Q6HRS PRN PO COUGH Last administered on 03/12/20at 11:54; Start 03/12/20 at 11:45 Lidocaine (Lidoderm) 1 patch DAILY TD Last administered on 03/12/20at 11:54; Start 03/12/20 at 12:00 Miscellaneous (Lidoderm Patch Removal) 1 ea QHS MC Last administered on 03/12/20at 21:00; Start 03/12/20 at 21:00 Sodium Chloride 1,000 ml @ 1,000 mls/hr Q1H PRN IV hypotension; Start 03/12/20 at 14:23; Stop 03/12/20 at 20:22; Status DC Albumin Human 200 ml @ 200 mls/hr 1X PRN PRN IV Hypotension; Start 03/12/20 at 14:30; Stop 03/12/20 at 20:29; Status DC Acetaminophen (Tylenol) 500 mg 1X PRN PRN PO MILD PAIN / TEMP > 100.3'F; Start 03/12/20 at 14:30; Stop 03/13/20 at 14:29 Diphenhydramine HCl (Benadryl) 25 mg 1X PRN PRN IV ITCHING; Start 03/12/20 at 14:30; Stop 03/13/20 at 14:29 Diphenhydramine HCl (Benadryl) 25 mg 1X PRN PRN IV ITCHING; Start 03/12/20 at 14:30; Stop 03/13/20 at 14:29 Sodium Chloride 1,000 ml @ 400 mls/hr Q2H30M PRN IV PATENCY; Start 03/12/20 at 14:23; Stop 03/13/20 at 02:22; Status DC Info (PHARMACY MONITORING -- do not chart) 1 each PRN DAILY PRN MC SEE C OMMENTS; Start 03/12/20 at 14:30 Lactobacillus Rhamnosus (Culturelle) 1 cap BID PO Last administered on 03/12/20at 21:36; Start 03/12/20 at 21:00 Sodium Chloride 1,000 ml @ 1,000 mls/hr Q1H PRN IV hypotension; Start 03/13/20 at 07:00; Stop 03/13/20 at 12:59 Sodium Chloride 1,000 ml @ 400 mls/hr Q2H30M PRN IV PATENCY; Start 03/13/20 at 07:00; Stop 03/13/20 at 18:59 Info (PHARMACY MONITORING -- do not chart) 1 each PRN DAILY PRN MC SEE COMMENTS; Start 03/13/20 at 08:30 Info (PHARMACY MONITORING -- do not chart) 1 each PRN DAILY PRN MC SEE COMMENTS; Start 03/13/20 at 08:30 Vancomycin HCl 1.75 gm/Sodium Chloride 500 ml @ 250 mls/hr 1X ONCE IV ; Start 03/13/20 at 16:00; Stop 03/13/20 at 17:59 Vancomycin HCl (Vancomycin Random Level) 1 each 1X ONCE MC ; Start 03/15/20 at 05:00; Stop 03/15/20 at 05:01 Active Scripts Active Reported Furosemide 80 Mg Tablet 120 Mg PO BID Tresiba (Insulin Degludec) 100 Unit/1 Ml Vial 42 Unit SQ DAILY Ativan (Lorazepam) 1 Mg Tablet 0.5 Mg PO Q4HRS Percocet 10-325 Mg Tablet (Oxycodone/Acetaminophen) 1 Each Tablet 1 Tab PO BID Buspirone Hcl 5 Mg Tablet 5 Mg PO TID Lisinopril 20 Mg Tablet 20 Mg PO DAILY Zofran (Ondansetron Hcl) 4 Mg Tablet 1 Tab PO PRN Q4HRS PRN NITROGLYCERIN SubLingual (Nitroglycerin) 0.4 Mg Tab.subl 0.4 Mg SL PRN Q5MIN PRN Hydralazine Hcl 25 Mg Tablet 1 Tab PO BID Gabapentin 400 Mg Capsule 400 Mg PO BID Citalopram Hbr (Citalopram Hydrobromide) 40 Mg Tablet 40 Mg PO HS Cyclobenzaprine Hcl 10 Mg Tablet 1 Tab PO TID PRN PRN Ranexa (Ranolazine) 1,000 Mg Tab.er.12h 0.5 Tab PO BID Seroquel (Quetiapine Fumarate) 100 Mg Tablet 1 Tab PO QHS Protonix (Pantoprazole Sodium) 20 Mg Tablet.dr 40 Mg PO DAILY Docusate Sodium 100 Mg Capsule 1 Cap PO DAILY Divalproex Sodium 500 Mg Tablet.dr 2 Tab PO BID Aspirin 81 Mg Tab.chew 1 Tab PO DAILY Amitiza (Lubiprostone) 24 Mcg Capsule 1 Cap PO DAILY Norvasc (Amlodipine Besylate) 10 Mg Tablet 10 Mg PO DAILY Lipitor (Atorvastatin Calcium) 80 Mg Tablet 80 Mg PO HS Coreg (Carvedilol) 25 Mg Tablet 12.5 Mg PO BIDWMEALS Metolazone 5 Mg Tablet 5 Mg PO DAILY Renvela (Sevelamer Carbonate) 800 Mg Tablet 800 Mg PO TIDWMEALS Trazodone Hcl 300 Mg Tablet 150 Mg PO HS Vitals/I & O Vital Sign - Last 24 Hours 03/12/20 03/12/20 03/12/20 03/12/20 11:00 11:49 12:19 14:41 Temp 96.8 96.8 Pulse 75 Resp 20 B/P (MAP) 123/58 (79) Pulse Ox 98 98 98 98 O2 Delivery Nasal Cannula Nasal Cannula Nasal Cannula Nasal Cannula O2 Flow Rate 3.0 3.0 3.0 3.0 03/12/20 03/12/20 03/12/20 03/12/20 17:41 18:12 18:44 18:44 Resp 12 O2 Delivery Nasal Cannula Nasal Cannula Nasal Cannula Nasal Cannula O2 Flow Rate 3.0 3.0 3.0 3.0 03/12/20 03/12/20 03/12/20 03/12/20 19:52 20:00 21:37 22:05 Temp 98.9 98.9 Pulse 86 86 Resp 18 B/P (MAP) 139/71 (93) 139/71 Pulse Ox 97 97 O2 Delivery Nasal Cannula Nasal Cannula Nasal Cannula O2 Flow Rate 3.0 3.0 3.0 03/12/20 03/13/20 03/13/20 03/13/20 23:19 03:55 04:48 07:40 Temp 98.1 97.7 98.1 98.1 97.7 98.1 Pulse 80 74 82 Resp 18 20 B/P (MAP) 144/73 (96) 121/59 (79) 154/60 (91) Pulse Ox 97 97 93 O2 Delivery Nasal Cannula Nasal Cannula Room Air Room Air O2 Flow Rate 3.0 3.0 3.0 03/13/20 07:48 O2 Delivery Room Air Intake and Output 03/12/20 03/12/20 03/13/20 15:00 23:00 07:00 Intake Total 600 ml 120 ml 210 ml Balance 600 ml 120 ml 210 ml GALI ROMERO MD March 13, 2020 09:00
--- NOTE | 2020-03-13 10:05 | PDOC ---
SUBJECTIVE ROS Stable on HD OBJECTIVE Vital Signs Vital Signs Date Time Temp Pulse Resp B/P (MAP) Pulse Ox O2 Delivery O2 Flow Rate FiO2 03/13/20 07:59 Nasal Cannula 3.0 03/13/20 07:40 98.1 82 20 154/60 (91) 93 98.1 I & 0 Intake and Output 03/13/20 07:00 Intake Total 930 ml Balance 930 ml Intake Oral 930 ml # Voids 2 PHYSICAL EXAM Physical Exam GENERAL: NAD HEENT: OM moist NECK: supple CARDIOVASCULAR: S1, S2. LUNGS: Diminished breath sounds at the base ABDOMEN: Soft, : No Hale. EXTREMITIES: no edema NEURO- Grossly normal DERM No Rash : DIAGNOSIS/ASSESSMENT Assessment & Plan ESRD:On TTS under Dr Hernandez Seen on HD, tolerating well, UF to dry weight as tolerated , Discussed with Kt Royal CP Left Basilar infiltrate, ? PNA Diabetes, insulin-dependent. Chronic pain syndrome- on narcotics Hx of CAD s/p CABG Chronic congestive heart failure Hx of Depression. History of previous hip fracture from fall, left femoral fracture, had surgeries done for that. Anemia: No indication for CHLOE HTN- Hypotensive at presentation, stable currently History of drug overdose with both morphine as well as fentanyl. Seizure disorder. COMMENT/RELEVANT DATA Meds Current Medications Medications (Trade) Dose Ordered Sig/Brittani Start Time Stop Time Status Last Admin Dose Admin Acetaminophen (Tylenol) 500 mg 1X PRN PRN 03/12/20 14:30 03/13/20 14:29 Albumin Human 200 ml @ 200 mls/hr 1X PRN PRN 03/12/20 14:30 03/12/20 20:29 DC Amlodipine Besylate (Norvasc) 10 mg DAILY 03/12/20 09:00 03/12/20 08:21 10 MG Aspirin (Aspirin Chewable) 81 mg DAILY 03/12/20 09:00 03/12/20 08:20 81 MG Atorvastatin Calcium (Lipitor) 20 mg QHS 03/12/20 21:00 03/12/20 21:39 20 MG Azithromycin 250 ml @ 250 mls/hr 1X ONCE 03/11/20 15:15 03/11/20 16:14 DC 03/11/20 16:04 250 MLS/HR Buspirone HCl (Buspar) 5 mg TID 03/11/20 21:00 03/12/20 21:35 5 MG Cefepime HCl (Maxipime) 1 gm Q24H 03/11/20 20:00 03/12/20 21:54 1 GM Ceftriaxone Sodium (Rocephin) 1 gm 1X ONCE 03/11/20 15:15 03/11/20 15:16 DC 03/11/20 16:03 1 GM Citalopram Hydrobromide (CeleXA) 40 mg DAILY 03/12/20 09:00 03/12/20 08:21 40 MG Cyclobenzaprine HCl (Flexeril) 10 mg TID PRN PRN 03/11/20 15:45 03/12/20 17:40 10 MG Diphenhydramine HCl (Benadryl) 25 mg 1X PRN PRN 03/12/20 14:30 03/13/20 14:29 Divalproex Sodium (Depakote) 1,000 mg BID 03/11/20 21:00 03/12/20 21:48 1,000 MG Docusate Sodium (Colace) 100 mg DAILY 03/12/20 09:00 03/12/20 08:21 100 MG Fentanyl Citrate (Fentanyl 2ml Vial) 50 mcg PRN Q3HRS PRN 03/12/20 11:45 03/13/20 07:48 50 MCG Gabapentin (Neurontin) 400 mg BID 03/11/20 21:00 03/12/20 21:38 400 MG Guaifenesin (Robitussin Dm) 10 ml PRN Q6HRS PRN 03/12/20 11:45 03/12/20 11:54 10 ML Hydrocortisone (Proctosol-Hc) 1 jv BID 03/11/20 21:00 Info (PHARMACY MONITORING -- do not chart) 1 each PRN DAILY PRN 03/13/20 08:30 Insulin Glargine (Lantus Syringe) 42 unit QHS 03/12/20 21:00 03/12/20 21:53 42 UNIT Labetalol HCl (Normodyne Iv Push) 20 mg PRN Q2HR PRN 03/11/20 17:00 Lactobacillus Rhamnosus (Culturelle) 1 cap BID 03/12/20 21:00 03/12/20 21:36 1 CAP Lidocaine (Lidoderm) 1 patch DAILY 03/12/20 12:00 03/12/20 11:54 1 PATCH Lorazepam (Ativan) 0.5 mg PRN Q4HRS PRN 03/11/20 16:00 Lubiprostone (Amitiza) 24 mcg DAILY 03/12/20 09:00 03/12/20 08:21 24 MCG Metolazone (Zaroxolyn) 5 mg DAILY 03/12/20 09:00 03/12/20 11:54 5 MG Miscellaneous (Lidoderm Patch Removal) 1 ea QHS 03/12/20 21:00 03/12/20 21:00 1 EA Nitroglycerin (Nitrostat) 0.4 mg PRN Q5MIN PRN 03/11/20 15:45 Ondansetron HCl (Zofran Odt) 4 mg PRN Q4HRS PRN 03/11/20 17:15 Ondansetron HCl (Zofran) 4 mg PRN Q8HRS PRN 03/11/20 15:15 03/12/20 15:14 DC Oxycodone/ Acetaminophen (Percocet 10/325) 1 tab PRN Q6HRS PRN 03/12/20 14:00 03/13/20 04:48 1 TAB Pantoprazole Sodium (Protonix) 40 mg DAILYAC 03/12/20 07:30 03/12/20 08:15 40 MG Quetiapine Fumarate (SEROquel) 100 mg QHS 03/11/20 21:00 03/12/20 21:38 100 MG Ranolazine (Ranexa) 500 mg BID 03/11/20 21:00 03/12/20 21:37 500 MG Sevelamer Carbonate (Renvela) 800 mg TIDWMEALS 03/12/20 08:00 03/12/20 17:41 800 MG Sodium Chloride 1,000 ml @ 400 mls/hr Q2H30M PRN 03/13/20 07:00 03/13/20 18:59 Trazodone HCl (Desyrel) 150 mg QHS 03/11/20 21:00 03/12/20 21:39 150 MG Vancomycin HCl (Vanco Per Pharmacy) 1 each PRN DAILY PRN 03/11/20 15:30 03/13/20 08:58 1 EACH Vancomycin HCl (Vancomycin Random Level) 1 each 1X ONCE 03/15/20 05:00 03/15/20 05:01 Vancomycin HCl 1.75 gm/Sodium Chloride 500 ml @ 250 mls/hr 1X ONCE 03/13/20 16:00 03/13/20 17:59 Vancomycin HCl 2 gm/Sodium Chloride 500 ml @ 250 mls/hr 1X ONCE 03/11/20 15:45 03/11/20 17:44 DC 03/11/20 17:21 250 MLS/HR Lab Laboratory Tests Test 03/12/20 11:25 03/13/20 03:05 Glucose (Fingerstick) 223 mg/dL (70-99) Sodium Level 137 mmol/L (136-145) Potassium Level 5.3 mmol/L (3.5-5.1) Chloride Level 98 mmol/L (98-107) Carbon Dioxide Level 30 mmol/L (21-32) Anion Gap 9 (6-14) Blood Urea Nitrogen 57 mg/dL (8-26) Creatinine 7.4 mg/dL (0.7-1.3) Estimated GFR (Cockcroft-Gault) 7.8 Glucose Level 252 mg/dL (70-99) Calcium Level 7.5 mg/dL (8.5-10.1) Random Vancomycin Level 14.2 mcg/mL Results All relevant outside records, renal labs, imaging studies, telemetry/EKG's were reviewed. JEAN PAUL CESPEDES MD March 13, 2020 10:05
[2020-03-13] MEDS: SEVELAMER CARBONATE 800 MG TABLET. PO SCH ×3 (12:00→17:00)
[2020-03-13] MEDS: metOLazone 2.5 MG TABLET PO SCH (12:29)
[2020-03-13] MEDS: guaiFENesin DM 200MG/20MG 10 ML SYRUP PO PRN (12:29)
[2020-03-13] MEDS: busPIRone 5 MG TABLET. PO SCH ×3 (12:30→20:48)
[2020-03-13] MEDS: RANOLAZINE 500 MG TAB.ER.12H PO SCH ×2 (12:32→20:48)
[2020-03-13] MEDS: LACTOBACILLUS RHAMNOSUS GG 1 CAPSULE. PO SCH ×2 (12:39→20:48)
[2020-03-13] MEDS: CYCLOBENZAPRINE 10 MG TABLET. PO PRN (12:39)
[2020-03-13] MEDS: GABAPENTIN 400 MG CAPSULE. PO SCH ×2 (12:39→20:48)
[2020-03-13] MEDS: LUBIPROSTONE 24 MCG CAPSULE PO SCH (12:40)
[2020-03-13] MEDS: CITALOPRAM 20 MG TABLET. PO SCH (12:40)
[2020-03-13] MEDS: ASPIRIN CHEWABLE 81 MG TABLET. PO SCH (12:40)
[2020-03-13] MEDS: PANTOPRAZOLE 40 MG TABLET.DR. PO SCH (12:40)
[2020-03-13] MEDS: amLODIPine BESYLATE 10 MG TABLET PO SCH (12:42)
[2020-03-13] MEDS: LIDOCAINE (700MG/PATCH) PATCH. TD SCH (12:43)
--- NOTE | 2020-03-13 13:21 | NUR ---
Patient returned to room from hemodialysis. Dialysis removed 4 L; Patient tolerated the procedure well.
--- NOTE | 2020-03-13 14:56 | NUR ---
SS following up with discharge planning. SS reviewed pt chart and discussed with pt RN. Pt is from home and is currently on room air. Pt has outpatient dialysis services with [facility], ; fax [phone], Tuesday, , and Tuesday. Pt has had home healthcare services with [facility], ; fax [phone], in the past. Pt is COVID19 negative. SS will continue to follow for discharge planning.
[2020-03-13 15:21] VITALS: BP 132/78
[2020-03-13] MEDS ORDERED: VANCOMYCIN 1.75 GM in IV NORMAL SALINE 500ML BAG 500 ML IV ONE (16:00)
[2020-03-13 19:00] VITALS: BP 143/75
--- NOTE | 2020-03-13 19:33 | NUR ---
Patient needs to be NPO after midnight for CT Angiography. Patient's dialysis schedule is /Th/Sat. Patient received Fentanyl at 1736 hours and still requesting pain medications. Patient received PO Pain medication at the end of the shift.
[2020-03-13] MEDS: CEFEPIME HCL IV Push 1 GM VIAL. IVP SCH (20:47)
[2020-03-13] MEDS: QUEtiapine 100 MG TABLET. PO SCH (20:48)
[2020-03-13] MEDS: traZODone 50 MG TABLET. PO SCH (20:48)
[2020-03-13] MEDS: ATORVASTATIN CALCIUM 20 MG TABLET PO SCH (20:48)
[2020-03-13] MEDS: PATCH REMOVAL. MC SCH (20:49)
[2020-03-13] MEDS: INSULIN GLARGINE SYRINGE. SQ SCH (21:00)
[2020-03-13 23:00] VITALS: BP 137/77
[2020-03-14 03:00] VITALS: BP 176/97
[2020-03-14 05:16] LABS: CALCIUM 8.1 mg/dL (8.5-10.1); CREATININE 6.1 mg/dL (0.7-1.3); GFR 9.7; POTASSIUM 5.1 mmol/L (3.5-5.1)
[2020-03-14] MEDS ORDERED: IOHEXOL 350 MG/ML 100 ML VIAL. IV ONE (06:15)
[2020-03-14] MEDS ORDERED: CONTRAST GIVEN. MC PRN (06:30)
[2020-03-14] MEDS: fentaNYL PF VIAL 100 MCG/2 ML VIAL IV PRN (07:14)
[2020-03-14 07:30] VITALS: BP 180/77
[2020-03-14] MEDS ORDERED: DEXTROSE 50% 25 GM / 50ML DISP.SYRIN. IV PRN (08:00)
--- NOTE | 2020-03-14 08:01 | PDOC ---
PROGRESS NOTES Chief Complaint Chief Complaint Atypical CP - neg trop and negative EKG. Likely costochondritis from cough and left basilar infiltrate Left Basilar infiltrate, ? PNA - treating as HCAP, will get chest CT CAD s/p CABG. Cath 2016 with patent grafts as noted above. HTN, now hypotensive Acute on chronic diastolic CHF; Echo 07/19 with preserved LV systolic function Hyperlipidemia Diabetes, II--insulin dependent ESRD on HD History of Present Illness History of Present Illness Mr Bedolla 54 yo M w/ PMHx CAD, ischemic CM, ESRD on HD, narcotic use, DM, HTN who presents with substernal chest pain radiating to his back since last night at 4 am for the first time. states felt as sharp ches pain that woke him up at night. states chest pain similar to chest pain he experienced when he had MA in past. patient went to HD this AM and found to have low BP 68/42. did not get HD done and instead advised to go to ED. patient took all his meds as prescribed this AM. patient noted to have cough for several weeks. no sob. states coughing up blood. no fever, no body aches. cardiac workup negative in ED. cxr concerning for Left basilar infiltrate. noted elevated bnp [id number] esr [id number]. normal trop. normal tsh. Consults: Cardiology, nephrology 03/12: He relates to me he was on hospice until 2 months ago. Now he is looking to have a PD catheter reinserted. He still has left-sided reproducible chest pain worse on deep inspiration. Pro calcitonin elevated is on cefepime and vancomycin empirically. Cardiology sees no need for further cardiac work-up at this point ruled out MA. His blood pressure has improved slightly. 03/13: Seen on dialysis, still with pain. K 5.3 this morning. Mild CP and SOB. Weight up 5kg from dry weight of 110kg. No events overnight. On his home O2. Still with left-sided chest pain on deep inspiration. CTA completed with no aortic abnormalities and a small left lower lobe nodule that looks like a benign granuloma. Transition to p.o. Augmentin, he understands his primary problem is likely a quick tapering of his opioid pain medications when he left hospice and he will work with his outpatient physicians on his opioid regimen. CTA: CARDIOVASCULAR: Pulsation artifact at the aortic root is present. 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 Three-vessel arch with normal caliber at 2.9 cm. No dissection flap, flow- limiting stenosis, aneurysm or occlusion is apparent.. The descending thoracic aorta is normal in caliber as well at 2.8 cm and shows no filling defect susp icious for dissection. No periaortic soft tissue stranding. The celiac axis is widely patent. The SMA is also patent. Mixed calcified and noncalcified plaque near the SMA origin is present without evidence of hemodynamically significant stenosis. Single renal arteries bilaterally are patent although mixed ossified noncalcified plaque at the origin of the right renal artery could result in hemodynamically significant stenosis. This can be confirmed with renal arterial Doppler ultrasound if indicated. The IRINA is patent. Circumferential calcified and noncalcified plaque in the proximal right common iliac artery is present. No flow-limiting stenosis. MEDIASTINUM & JERRICA: No adenopathy or masses. LUNGS: Platelike atelectasis in the posterior basal left lower lobe. A 5 mm pulmonary nodule in the left lower lobe posteriorly shows central calcification, compatible with a benign granuloma. Calcified 4 mm nodules in the right upper and right middle lobes are also noted. PLEURAL SPACE: No pleural effusions or pneumothorax. OSSEOUS & SOFT TISSUE: Unremarkable ABDOMEN: Cholecystectomy. No biliary dilation. Liver, spleen, pancreas, adrenal glands are unremarkable. Both kidneys show mild perirenal soft tissue stranding but symmetric enhancement. IVC is unremarkable. Multiple mildly prominent retroperitoneal lymph nodes are present around the abdominal aorta. No bulky adenopathy. Bowel shows no findings of obstruction, perforation or acute inflammation. Appendix is not imaged. Bones show no aggressive appearing osseous lesions. IMPRESSION: 1. Post CABG surgical changes with normal caliber thoracic aorta showing no evidence of aneurysm, hemodynamically significant flow limiting stenosis or evidence of dissection. 2. There may be hemodynamically significant stenosis of the origin of the right renal artery. This can be evaluated further with renal arterial Doppler ultrasound if clinically warranted. Mild bilateral perirenal soft tissue stranding is nonspecific and can reflect chronic kidney disease, and in the appropriate clinical context, pyelonephritis. Vitals Vitals Vital Signs Date Time Temp Pulse Resp B/P (MAP) Pulse Ox O2 Delivery O2 Flow Rate FiO2 03/14/20 07:30 98.3 84 18 180/77 (111) 98 Room Air 98.3 03/13/20 20:00 3.0 Physical Exam General: Alert, Oriented X3, Cooperative, No acute distress Heart: Regular rate (SR), Normal S1, Normal S2, No murmurs Abdomen: Soft, No tenderness Extremities: No cyanosis, No edema Skin: No breakdown, No significant lesion Labs LABS Laboratory Tests Test 03/13/20 20:56 03/14/20 04:50 Glucose (Fingerstick) 359 mg/dL (70-99) Sodium Level 136 mmol/L (136-145) Potassium Level 5.1 mmol/L (3.5-5.1) Chloride Level 98 mmol/L (98-107) Carbon Dioxide Level 31 mmol/L (21-32) Anion Gap 7 (6-14) Blood Urea Nitrogen 42 mg/dL (8-26) Creatinine 6.1 mg/dL (0.7-1.3) Estimated GFR (Cockcroft-Gault) 9.7 Glucose Level 260 mg/dL (70-99) Calcium Level 8.1 mg/dL (8.5-10.1) Assessment and Plan Assessmemt and Plan Problems Medical Problems: (1) Chest pain Status: Acute (2) Infiltrate of left lung present on chest x-ray Status: Acute (3) Person under investigation for COVID-19 Status: Acute Comment Review of Relevant I have reviewed the following items nelda (where applicable) has been applied. Labs Laboratory Tests Test 03/12/20 11:25 03/13/20 03:05 03/13/20 20:56 03/14/20 04:50 Glucose (Fingerstick) 223 mg/dL (70-99) 359 mg/dL (70-99) Sodium Level 137 mmol/L (136-145) 136 mmol/L (136-145) Potassium Level 5.3 mmol/L (3.5-5.1) 5.1 mmol/L (3.5-5.1) Chloride Level 98 mmol/L (98-107) 98 mmol/L (98-107) Carbon Dioxide Level 30 mmol/L (21-32) 31 mmol/L (21-32) Anion Gap 9 (6-14) 7 (6-14) Blood Urea Nitrogen 57 mg/dL (8-26) 42 mg/dL (8-26) Creatinine 7.4 mg/dL (0.7-1.3) 6.1 mg/dL (0.7-1.3) Estimated GFR (Cockcroft-Gault) 7.8 9.7 Glucose Level 252 mg/dL (70-99) 260 mg/dL (70-99) Calcium Level 7.5 mg/dL (8.5-10.1) 8.1 mg/dL (8.5-10.1) Random Vancomycin Level 14.2 mcg/mL Laboratory Tests Test 03/13/20 20:56 03/14/20 04:50 Glucose (Fingerstick) 359 mg/dL (70-99) Sodium Level 136 mmol/L (136-145) Potassium Level 5.1 mmol/L (3.5-5.1) Chloride Level 98 mmol/L (98-107) Carbon Dioxide Level 31 mmol/L (21-32) Anion Gap 7 (6-14) Blood Urea Nitrogen 42 mg/dL (8-26) Creatinine 6.1 mg/dL (0.7-1.3) Estimated GFR (Cockcroft-Gault) 9.7 Glucose Level 260 mg/dL (70-99) Calcium Level 8.1 mg/dL (8.5-10.1) Microbiology 03/11/20 Blood Culture - Final, Complete Medications Current Medications Nitroglycerin (Nitrostat) 0.4 mg PRN Q5MIN PRN SL CP RATING > 1/10; Start 03/11/20 at 13:15; Stop 03/11/20 at 15:13; Status DC Fentanyl Citrate (Fentanyl 2ml Vial) 50 mcg PRN Q15MIN PRN IV PAIN GREATER THAN 3/10 Last administered on 03/12/20at 08:41; Start 03/11/20 at 13:15; Stop 03/12/20 at 13:14; Status DC Ceftriaxone Sodium (Rocephin) 1 gm 1X ONCE IVP Last administered on 03/11/20at 16:03; Start 03/11/20 at 15:15; Stop 03/11/20 at 15:16; Status DC Azithromycin 250 ml @ 250 mls/hr 1X ONCE IV Last administered on 03/11/20at 16:04; Start 03/11/20 at 15:15; Stop 03/11/20 at 16:14; Status DC Ondansetron HCl (Zofran) 4 mg PRN Q8HRS PRN IV NAUSEA/VOMITING; Start 03/11/20 at 15:15; Stop 03/12/20 at 15:14; Status DC Fentanyl Citrate (Fentanyl 2ml Vial) 50 mcg PRN Q1HR PRN IV PAIN Last administered on 03/12/20at 03:30; Start 03/11/20 at 15:15; Stop 03/12/20 at 11:41; Status DC Acetaminophen (Tylenol) 650 mg PRN Q4HRS PRN PO FEVER > 100.3'F; Start 03/11/20 at 15:15; Stop 03/12/20 at 15:14; Status DC Nitroglycerin (Nitrostat) 0.4 mg PRN Q5MIN PRN SL CHEST PAIN; Start 03/11/20 at 15:15; Stop 03/12/20 at 14:29; Status DC Cefepime HCl (Maxipime) 1 gm Q24H IVP Last administered on 03/13/20at 20:47; Start 03/11/20 at 20:00 Vancomycin HCl (Vanco Per Pharmacy) 1 each PRN DAILY PRN MC SEE COMMENTS Last administered on 03/13/20at 08:58; Start 03/11/20 at 15:30 Vancomycin HCl 2 gm/Sodium Chloride 500 ml @ 250 mls/hr 1X ONCE IV Last administered on 03/11/20at 17:21; Start 03/11/20 at 15:45; Stop 03/11/20 at 17:44; Status DC Amlodipine Besylate (Norvasc) 10 mg DAILY PO Last administered on 03/13/20at 12:42; Start 03/12/20 at 09:00 Aspirin (Aspirin Chewable) 81 mg DAILY PO Last administered on 03/13/20at 12:40; Start 03/12/20 at 09:00 Buspirone HCl (Buspar) 5 mg TID PO Last administered on 03/13/20at 20:48; Start 03/11/20 at 21:00 Cyclobenzaprine HCl (Flexeril) 10 mg TID PRN PRN PO MUSCLE SPASMS Last administered on 03/13/20at 12:39; Start 03/11/20 at 15:45 Divalproex Sodium (Depakote) 1,000 mg BID PO Last administered on 03/13/20 20:48; Start 03/11/20 at 21:00 Docusate Sodium (Colace) 100 mg DAILY PO Last administered on 03/12/20at 08:21; Start 03/12/20 at 09:00 Gabapentin (Neurontin) 400 mg BID PO Last administered on 03/13/20at 20:48; Start 03/11/20 at 21:00 Lorazepam (Ativan) 0.5 mg PRN Q4HRS PRN PO ANXIETY / AGITATION; Start 03/11/20 at 16:00 Lubiprostone (Amitiza) 24 mcg DAILY PO Last administered on 03/13/20at 12:40; Start 03/12/20 at 09:00 Nitroglycerin (Nitrostat) 0.4 mg PRN Q5MIN PRN SL CHEST PAIN; Start 03/11/20 at 15:45 Oxycodone/ Acetaminophen (Percocet 10/325) 1 tab BID PO Last administered on 03/12/20at 08:16; Start 03/11/20 at 21:00; Stop 03/12/20 at 11:41; Status DC Quetiapine Fumarate (SEROquel) 100 mg QHS PO Last administered on 03/13/20at 20:48; Start 03/11/20 at 21:00 Sevelamer Carbonate (Renvela) 800 mg TIDWMEALS PO Last administered on 03/13/20at 12:41; Start 03/12/20 at 08:00 Atorvastatin Calcium (Lipitor) 80 mg QHS PO Last administered on 03/11/20at 21:19; Start 03/11/20 at 21:00; Stop 03/12/20 at 07:54; Status DC Citalopram Hydrobromide (CeleXA) 40 mg DAILY PO Last administered on 03/13/20at 12:40; Start 03/12/20 at 09:00 Hydrocortisone (Proctosol-Hc) 1 jv BID RC ; Start 03/11/20 at 21:00 Insulin Glargine (Lantus Syringe) 42 unit DAILY SQ ; Start 03/12/20 at 09:00; Stop 03/12/20 at 10:54; Status DC Metolazone (Zaroxolyn) 5 mg DAILY PO Last administered on 03/13/20at 12:29; Start 03/12/20 at 09:00 Ondansetron HCl (Zofran Odt) 4 mg PRN Q4HRS PRN PO NAUSEA/VOMITING; Start 03/11/20 at 17:15 Pantoprazole Sodium (Protonix) 40 mg DAILYAC PO Last administered on 03/13/20 12:40; Start 03/12/20 at 07:30 Ranolazine (Ranexa) 500 mg BID PO Last administered on 03/13/20 20:48; Start 03/11/20 at 21:00 Trazodone HCl (Desyrel) 150 mg QHS PO Last administered on 03/13/20 20:48; Start 03/11/20 at 21:00 Labetalol HCl (Normodyne Iv Push) 20 mg PRN Q2HR PRN IVP ELEVATED BP, SEE COMMENTS; Start 03/11/20 at 17:00 Vancomycin HCl (Vancomycin Random Level) 1 each 1X ONCE MC Last administered on 03/13/20 06:00; Start 03/13/20 at 06:00; Stop 03/13/20 at 06:01; Status DC Atorvastatin Calcium (Lipitor) 20 mg QHS PO Last administered on 03/13/20 20:48; Start 03/12/20 at 21:00 Insulin Glargine (Lantus Syringe) 42 unit QHS SQ Last administered on 03/13/20 21:00; Start 03/12/20 at 21:00 Fentanyl Citrate (Fentanyl 2ml Vial) 50 mcg PRN Q3HRS PRN IV PAIN Last administered on 03/14/20 07:14; Start 03/12/20 at 11:45 Oxycodone/ Acetaminophen (Percocet 10/325) 1 tab PRN Q6HRS PRN PO PAIN Last administered on 03/13/20 19:14; Start 03/12/20 at 14:00 Guaifenesin (Robitussin Dm) 10 ml PRN Q6HRS PRN PO COUGH Last administered on 03/13/20 12:29; Start 03/12/20 at 11:45 Lidocaine (Lidoderm) 1 patch DAILY TD Last administered on 03/13/20 12:43; Start 03/12/20 at 12:00 Miscellaneous (Lidoderm Patch Removal) 1 ea QHS MC Last administered on 02/28 02/17at 20:49; Start 03/12/20 at 21:00 Sodium Chloride 1,000 ml @ 1,000 mls/hr Q1H PRN IV hypotension; Start 03/12/20 at 14:23; Stop 03/12/20 at 20:22; Status DC Albumin Human 200 ml @ 200 mls/hr 1X PRN PRN IV Hypotension; Start 03/12/20 at 14:30; Stop 03/12/20 at 20:29; Status DC Acetaminophen (Tylenol) 500 mg 1X PRN PRN PO MILD PAIN / TEMP > 100.3'F; Start 03/12/20 at 14:30; Stop 03/13/20 at 14:29; Status DC Diphenhydramine HCl (Benadryl) 25 mg 1X PRN PRN IV ITCHING; Start 03/12/20 at 14:30; Stop 03/13/20 at 14:29; Status DC Diphenhydramine HCl (Benadryl) 25 mg 1X PRN PRN IV ITCHING; Start 03/12/20 at 14:30; Stop 03/13/20 at 14:29; Status DC Sodium Chloride 1,000 ml @ 400 mls/hr Q2H30M PRN IV PATENCY; Start 03/12/20 at 14:23; Stop 03/13/20 at 02:22; Status DC Info (PHARMACY MONITORING -- do not chart) 1 each PRN DAILY PRN MC SEE COMMENTS; Start 03/12/20 at 14:30; Stop 03/13/20 at 14:50; Status DC Lactobacillus Rhamnosus (Culturelle) 1 cap BID PO Last administered on 03/13/20at 20:48; Start 03/12/20 at 21:00 Sodium Chloride 1,000 ml @ 1,000 mls/hr Q1H PRN IV hypotension; Start 03/13/20 at 07:00; Stop 03/13/20 at 12:59; Status DC Sodium Chloride 1,000 ml @ 400 mls/hr Q2H30M PRN IV PATENCY; Start 03/13/20 at 07:00; Stop 03/13/20 at 18:59; Status DC Info (PHARMACY MONITORING -- do not chart) 1 each PRN DAILY PRN MC SEE COMMENTS; Start 03/13/20 at 08:30; Stop 03/13/20 at 14:50; Status DC Info (PHARMACY MONITORING -- do not chart) 1 each PRN DAILY PRN MC SEE COMMENTS; Start 03/13/20 at 08:30 Vancomycin HCl 1.75 gm/Sodium Chloride 500 ml @ 250 mls/hr 1X ONCE IV Last administered on 03/13/20at 17:35; Start 03/13/20 at 16:00; Stop 03/13/20 at 17:59; Status DC Vancomycin HCl (Vancomycin Random Level) 1 each 1X ONCE MC ; Start 03/15/20 at 05:00; Stop 03/15/20 at 05:01 Iohexol (Omnipaque 350 Mg/ml) 90 ml 1X ONCE IV Last administered on 03/14/20at 06:15; Start 03/14/20 at 06:15; Stop 03/14/20 at 06:16; Status DC Info (CONTRAST GIVEN -- Rx MONITORING) 1 each PRN DAILY PRN MC SEE COMMENTS; Start 03/14/20 at 06:30; Stop 03/16/20 at 06:29 Active Scripts Active Reported Furosemide 80 Mg Tablet 120 Mg PO BID Tresiba (Insulin Degludec) 100 Unit/1 Ml Vial 42 Unit SQ DAILY Ativan (Lorazepam) 1 Mg Tablet 0.5 Mg PO Q4HRS Percocet 10-325 Mg Tablet (Oxycodone/Acetaminophen) 1 Each Tablet 1 Tab PO BID Buspirone Hcl 5 Mg Tablet 5 Mg PO TID Lisinopril 20 Mg Tablet 20 Mg PO DAILY Zofran (Ondansetron Hcl) 4 Mg Tablet 1 Tab PO PRN Q4HRS PRN NITROGLYCERIN SubLingual (Nitroglycerin) 0.4 Mg Tab.subl 0.4 Mg SL PRN Q5MIN PRN Hydralazine Hcl 25 Mg Tablet 1 Tab PO BID Gabapentin 400 Mg Capsule 400 Mg PO BID Citalopram Hbr (Citalopram Hydrobromide) 40 Mg Tablet 40 Mg PO HS Cyclobenzaprine Hcl 10 Mg Tablet 1 Tab PO TID PRN PRN Ranexa (Ranolazine) 1,000 Mg Tab.er.12h 0.5 Tab PO BID Seroquel (Quetiapine Fumarate) 100 Mg Tablet 1 Tab PO QHS Protonix (Pantoprazole Sodium) 20 Mg Tablet.dr 40 Mg PO DAILY Docusate Sodium 100 Mg Capsule 1 Cap PO DAILY Divalproex Sodium 500 Mg Tablet.dr 2 Tab PO BID Aspirin 81 Mg Tab.chew 1 Tab PO DAILY Amitiza (Lubiprostone) 24 Mcg Capsule 1 Cap PO DAILY Norvasc (Amlodipine Besylate) 10 Mg Tablet 10 Mg PO DAILY Lipitor (Atorvastatin Calcium) 80 Mg Tablet 80 Mg PO HS Coreg (Carvedilol) 25 Mg Tablet 12.5 Mg PO BIDWMEALS Metolazone 5 Mg Tablet 5 Mg PO DAILY Renvela (Sevelamer Carbonate) 800 Mg Tablet 800 Mg PO TIDWMEALS Trazodone Hcl 300 Mg Tablet 150 Mg PO HS Vitals/I & O Vital Sign - Last 24 Hours 03/13/20 03/13/20 03/13/20 03/13/20 12:29 12:32 12:39 12:42 Pulse 82 82 B/P (MAP) 154/60 154/60 O2 Delivery Room Air Room Air 03/13/20 03/13/20 03/13/20 03/13/20 14:37 15:21 17:36 18:31 Temp 98.4 98.4 Pulse 89 Resp 20 B/P (MAP) 132/78 (96) Pulse Ox 93 O2 Delivery Room Air Room Air Room Air Room Air 03/13/20 03/13/20 03/13/20 03/13/20 19:00 19:14 20:00 20:06 Temp 98.5 98.5 Pulse 88 Resp 20 B/P (MAP) 143/75 (97) Pulse Ox 90 O2 Delivery Room Air Room Air Nasal Cannula Room Air O2 Flow Rate 3.0 03/13/20 03/13/20 03/13/20 03/13/20 20:47 20:48 21:25 23:00 Temp 98.1 98.1 Pulse 88 82 Resp 18 B/P (MAP) 143/75 137/77 (97) Pulse Ox 94 O2 Delivery Room Air Room Air Room Air 03/14/20 03/14/20 03:00 07:30 Temp 98.2 98.3 98.2 98.3 Pulse 78 84 Resp 18 18 B/P (MAP) 176/97 (123) 180/77 (111) Pulse Ox 90 98 O2 Delivery Room Air Room Air Intake and Output 5/03/13/20 03/14/20 15:00 23:00 07:00 Intake Total 180 ml 300 ml 150 ml Balance 180 ml 300 ml 150 ml GALI ROMERO MD March 14, 2020 08:01
[2020-03-14] MEDS: busPIRone 5 MG TABLET. PO SCH (08:53)
[2020-03-14] MEDS: amLODIPine BESYLATE 10 MG TABLET PO SCH (08:53)
[2020-03-14] MEDS: GABAPENTIN 400 MG CAPSULE. PO SCH (08:53)
[2020-03-14] MEDS: DOCUSATE SODIUM 100 MG CAPSULE. PO SCH (08:53)
[2020-03-14] MEDS: ASPIRIN CHEWABLE 81 MG TABLET. PO SCH (08:53)
[2020-03-14] MEDS: CYCLOBENZAPRINE 10 MG TABLET. PO PRN (08:53)
[2020-03-14] MEDS: oxyCODONE/APAP 10/325 1 TAB TABLET PO PRN (08:53)
[2020-03-14] MEDS: LACTOBACILLUS RHAMNOSUS GG 1 CAPSULE. PO SCH (08:54)
[2020-03-14] MEDS: PANTOPRAZOLE 40 MG TABLET.DR. PO SCH (08:54)
[2020-03-14] MEDS: DIVALPROEX DELAYED RELEASE 500 MG TABLET.DR. PO SCH (08:54)
[2020-03-14] MEDS: RANOLAZINE 500 MG TAB.ER.12H PO SCH (08:54)
[2020-03-14] MEDS: SEVELAMER CARBONATE 800 MG TABLET. PO SCH ×2 (08:54→11:14)
[2020-03-14] MEDS: CITALOPRAM 20 MG TABLET. PO SCH (08:54)
[2020-03-14] MEDS: metOLazone 2.5 MG TABLET PO SCH (08:54)
[2020-03-14] MEDS: LUBIPROSTONE 24 MCG CAPSULE PO SCH (08:54)
--- NOTE | 2020-03-14 08:54 | RAD ---
EXAM: CT angiogram chest and abdomen with IV contrast INDICATION: Chest pain radiating to the back. TECHNIQUE: Multi-detector row CT images were acquired from the thoracic inlet through the abdomen with the use of IV contrast. Sagittal and coronal images were acquired from the transaxial data. All CT scans performed at this facility utilize dose optimization techniques as appropriate to the exam, including the following: Automated exposure control and adjustment of the mA and/or KV according to patient size (this includes techniques or standardized protocols for targeted exams where dose is indication/reason for exam). 3-D VR T images of the aorta were acquired and reviewed. IV CONTRAST: Administered COMPARISON: Chest x-ray 03/11/2020 FINDINGS: This is a nongated study. CARDIOVASCULAR: Pulsation artifact at the aortic root is present. 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 Three-vessel arch with normal caliber at 2.9 cm. No dissection flap, flow-limiting stenosis, aneurysm or occlusion is apparent.. The descending thoracic aorta is normal in caliber as well at 2.8 cm and shows no filling defect suspicious for dissection. No periaortic soft tissue stranding. The celiac axis is widely patent. The SMA is also patent. Mixed calcified and noncalcified plaque near the SMA origin is present without evidence of hemodynamically significant stenosis. Single renal arteries bilaterally are patent although mixed ossified noncalcified plaque at the origin of the right renal artery could result in hemodynamically significant stenosis. This can be confirmed with renal arterial Doppler ultrasound if indicated. The IRINA is patent. Circumferential calcified and noncalcified plaque in the proximal right common iliac artery is present. No flow-limiting stenosis. MEDIASTINUM & JERRICA: No adenopathy or masses. LUNGS: Platelike atelectasis in the posterior basal left lower lobe. A 5 mm pulmonary nodule in the left lower lobe posteriorly shows central calcification, compatible with a benign granuloma. Calcified 4 mm nodules in the right upper and right middle lobes are also noted. PLEURAL SPACE: No pleural effusions or pneumothorax. OSSEOUS & SOFT TISSUE: Unremarkable ABDOMEN: Cholecystectomy. No biliary dilation. Liver, spleen, pancreas, adrenal glands are unremarkable. Both kidneys show mild perirenal soft tissue stranding but symmetric enhancement. IVC is unremarkable. Multiple mildly prominent retroperitoneal lymph nodes are present around the abdominal aorta. No bulky adenopathy. Bowel shows no findings of obstruction, perforation or acute inflammation. Appendix is not imaged. Bones show no aggressive appearing osseous lesions. IMPRESSION: 1. Post CABG surgical changes with normal caliber thoracic aorta showing no evidence of aneurysm, hemodynamically significant flow limiting stenosis or evidence of dissection. 2. There may be hemodynamically significant stenosis of the origin of the right renal artery. This can be evaluated further with renal arterial Doppler ultrasound if clinically warranted. Mild bilateral perirenal soft tissue stranding is nonspecific and can reflect chronic kidney disease, and in the appropriate clinical context, pyelonephritis. Electronically signed by: Deisy Lerner MD (03/14/2020 8:51 AM) [id number]
[2020-03-14] MEDS: HYDROCORTISONE 2.5% RECTAL CREAM 30GM TUBE. RC SCH (08:55)
[2020-03-14] MEDS: LIDOCAINE (700MG/PATCH) PATCH. TD SCH (08:55)
[2020-03-14] MEDS ORDERED: AMOXICILLIN/K CLAV 500/125MG TABLET. PO SCH (09:45)
[2020-03-14] MEDS ORDERED: Diclofenac Sodium TP (10:53)
[2020-03-14] MEDS ORDERED: AMOX1TAB10 PO (10:53)
--- NOTE | 2020-03-14 10:54 | SNU/HH DC ---
DISCHARGE WITH HOME HEALTH DISCHARGE INFORMATION: Discharge Date: March 14, 2020 Final Diagnosis: Problems Medical Problems: (1) Chest pain Status: Acute (2) Infiltrate of left lung present on chest x-ray Status: Acute (3) Person under investigation for COVID-19 Status: Acute Condition on Discharge: Stable CODE STATUS: Code Status: Full HOME HEALTH: Face to Face: I certify this patient is under my care and that I, or a nurse practitioner or physician's entry level marketing assistant working with me, had a face to face encounter that meets the physician face to face encounter requirements with this patient on 03/14/2020. Medical Complications: CABG, CHF, Other (ESRD) Custodial For: Assess Cardiopulm Status, Assess & Educate Safety, Medication Management, Pain Management RN For Eval/Treatment: Yes Physical Therapy For: Evalulation/Treatment Occupational Therapy For: Evaluation/Treatment Pt Meets Homebound Status: Limited distance walking POST DISCHARGE ORDERS: Activity Instructions for Disc: Activity as tolerated Weight Bearing Status after Di: As tolerated DIET AFTER DISCHARGE: Renal CHECKS AFTER DISCHARGE: Checks after discharge: Check blood press - daily, Check blood sugar, ac/hs, Check your Temp as needed, Weigh Yourself Daily TREATMENT/EQUIPMENT ORDERS: Adaptive Equipment Issued: None Discharge Respiratory Equipmen: Oxygen CERTIFICATION STATEMENT: Certification Statement: Certification Statement: Based on the above finding, I certify that this patient is confined to the home and needs intermittent nursing home care, physical therapy and/or speech therapy, or continues to need occupational therapy.~ This patient is under my care, and I have initiated the establishment of the plan of care.~ This patient will be followed by myself or a community physician who will periodically review the plan of care. Home Meds Active Scripts [Diclofenac Sodium 1% Topical] 100 GM GEL..GRAM. No Conflict Check, 1 MAYRA TP BID for Costochondritis for 30 Days, #60 EACH Prov:GALI ROMERO MD 03/14/20 Amoxicillin/Potassium Clav (AMOX TR-K CLV 500-125 MG TAB) 1 Each Tablet, 1 TAB PO DAILY for Pneumonia for 5 Days, #5 TAB Prov:GALI ROMERO MD 03/14/20 Reported Medications Furosemide (FUROSEMIDE) 80 Mg Tablet, 120 MG PO BID for water pill, TAB 03/11/20 Insulin Degludec (Tresiba) 100 Unit/1 Ml Vial, 42 UNIT SQ DAILY for Diabetes, EACH 01/17/20 Lorazepam (ATIVAN) 1 Mg Tablet, 0.5 MG PO Q4HRS for anxiety, TAB 01/17/20 Oxycodone/Apap 10-325 (PERCOCET 10-325 MG TABLET ) 1 Each Tablet, 1 TAB PO BID for pain, TAB 0 Refills 01/17/20 Buspirone Hcl (BUSPIRONE HCL) 5 Mg Tablet, 5 MG PO TID for ., TAB 01/17/20 Lisinopril (LISINOPRIL) 20 Mg Tablet, 20 MG PO DAILY for FOR HYPERTENSION, #30 TAB 0 Refills 01/17/20 Ondansetron Hcl (ZOFRAN) 4 Mg Tablet, 1 TAB PO PRN Q4HRS PRN for NAUSEA, #20 TAB 12/30/19 Nitroglycerin (NITROGLYCERIN SubLingual) 0.4 Mg Tab.subl, 0.4 MG SL PRN Q5MIN PRN for CHEST PAIN, BOTTLE 12/30/19 Hydralazine Hcl (HYDRALAZINE HCL) 25 Mg Tablet, 1 TAB PO BID for hypertension, #90 TAB 5 Refills 12/30/19 Gabapentin (Gabapentin) 400 Mg Capsule, 400 MG PO BID for pain, CAP 12/30/19 Citalopram Hydrobromide (CITALOPRAM HBR) 40 Mg Tablet, 40 MG PO HS for anxiety, TAB 12/30/19 Cyclobenzaprine Hcl (CYCLOBENZAPRINE HCL) 10 Mg Tablet, 1 TAB PO TID PRN PRN for MUSCLE SPASMS, #90 TAB 08/31/19 Ranolazine (RANEXA) 1,000 Mg Tab.er.12h, 0.5 TAB PO BID for , #60 TAB 5 Refills 07/16/19 Quetiapine Fumarate (SEROQUEL) 100 Mg Tablet, 1 TAB PO QHS for , #30 TAB 1 Refill 07/16/19 Pantoprazole Sodium (PROTONIX) 20 Mg Tablet.dr, 40 MG PO DAILY for , TAB 07/16/19 Docusate Sodium (DOCUSATE SODIUM) 100 Mg Capsule, 1 CAP PO DAILY for , #30 CAP 07/16/19 Divalproex Sodium (DIVALPROEX SODIUM) 500 Mg Tablet.dr, 2 TAB PO BID for , #60 TAB 1 Refill 07/16/19 Aspirin (ASPIRIN) 81 Mg Tab.chew, 1 TAB PO DAILY for , #30 TAB 3 Refills 07/16/19 Lubiprostone (AMITIZA) 24 Mcg Capsule, 1 CAP PO DAILY for , #60 CAP 5 Refills 07/16/19 Amlodipine Besylate (NORVASC) 10 Mg Tablet, 10 MG PO DAILY, TAB 07/24/18 Atorvastatin Calcium (LIPITOR) 80 Mg Tablet, 80 MG PO HS for FOR CHOLESTEROL, #30 TAB 0 Refills 07/24/18 Carvedilol (COREG) 25 Mg Tablet, 12.5 MG PO BIDWMEALS for HTN, TAB 07/24/18 Metolazone (METOLAZONE) 5 Mg Tablet, 5 MG PO DAILY, #30 TAB 0 Refills 07/24/18 Sevelamer Carbonate (RENVELA) 800 Mg Tablet, 800 MG PO TIDWMEALS, TAB 07/24/18 Trazodone Hcl (TRAZODONE HCL) 300 Mg Tablet, 150 MG PO HS for insomnia, TAB 07/24/18 Discontinued Reported Medications Furosemide (FUROSEMIDE) 40 Mg Tablet, 40 MG PO BID for CHF, TAB 01/17/20 Hydrocortisone/Pramoxine (Hydrocort-Pramoxine 2.5%-1% cm) 4 Gm Cream.appl, 1 MAYRA TP BID for skin irriation for 10 Days, #30 GM 0 Refills 12/30/19 GALI ROMERO MD March 14, 2020 10:54
[2020-03-14] MEDS ORDERED: DICLOFENAC SODIUM 1% TOPICAL GEL 100GM TUBE. TP SCH (11:00)
--- NOTE | 2020-03-14 11:08 | PDOC3 ---
Discharge Summary Visit Information Date of Admission: March 11, 2020 Date of Discharge: March 14, 2020 Admitting Diagnosis: Chest pain Final Diagnosis Problems Medical Problems: (1) Chest pain Status: Acute (2) Infiltrate of left lung present on chest x-ray Status: Acute (3) Person under investigation for COVID-19 Status: Acute Brief Hospital Course Allergies Allergies Coded Allergies Type Severity Reaction Last Updated Verified hydromorphone Allergy Severe Anaphylaxis 07/16/19 Yes Vital Signs Vital Signs Date Time Temp Pulse Resp B/P (MAP) Pulse Ox O2 Delivery O2 Flow Rate FiO2 03/14/20 08:54 84 180/77 03/14/20 08:00 Nasal Cannula 3.0 03/14/20 07:30 98.3 18 98 98.3 Lab Results Laboratory Tests Test 03/12/20 11:25 03/13/20 03:05 03/13/20 20:56 03/14/20 04:50 Glucose (Fingerstick) 223 mg/dL (70-99) 359 mg/dL (70-99) Sodium Level 137 mmol/L (136-145) 136 mmol/L (136-145) Potassium Level 5.3 mmol/L (3.5-5.1) 5.1 mmol/L (3.5-5.1) Chloride Level 98 mmol/L (98-107) 98 mmol/L (98-107) Carbon Dioxide Level 30 mmol/L (21-32) 31 mmol/L (21-32) Anion Gap 9 (6-14) 7 (6-14) Blood Urea Nitrogen 57 mg/dL (8-26) 42 mg/dL (8-26) Creatinine 7.4 mg/dL (0.7-1.3) 6.1 mg/dL (0.7-1.3) Estimated GFR (Cockcroft-Gault) 7.8 9.7 Glucose Level 252 mg/dL (70-99) 260 mg/dL (70-99) Calcium Level 7.5 mg/dL (8.5-10.1) 8.1 mg/dL (8.5-10.1) Random Vancomycin Level 14.2 mcg/mL Test 03/14/20 08:36 Glucose (Fingerstick) 228 mg/dL (70-99) Laboratory Tests Test 03/13/20 20:56 03/14/20 04:50 03/14/20 08:36 Glucose (Fingerstick) 359 mg/dL (70-99) 228 mg/dL (70-99) Sodium Level 136 mmol/L (136-145) Potassium Level 5.1 mmol/L (3.5-5.1) Chloride Level 98 mmol/L (98-107) Carbon Dioxide Level 31 mmol/L (21-32) Anion Gap 7 (6-14) Blood Urea Nitrogen 42 mg/dL (8-26) Creatinine 6.1 mg/dL (0.7-1.3) Estimated GFR (Cockcroft-Gault) 9.7 Glucose Level 260 mg/dL (70-99) Calcium Level 8.1 mg/dL (8.5-10.1) Brief Hospital Course Mr Bedolla 54 yo M w/ PMHx CAD, ischemic CM, ESRD on HD, narcotic use, DM, HTN who presents with substernal chest pain radiating to his back since last night at 4 am for the first time. states felt as sharp ches pain that woke him up at night. states chest pain similar to chest pain he experienced when he had OH in past. patient went to HD this AM and found to have low BP 68/42. did not get HD done and instead advised to go to ED. patient took all his meds as prescribed this AM. patient noted to have cough for several weeks. no sob. states coughing up blood. no fever, no body aches. Cardiac workup negative in ED. cxr concerning for Left basilar infiltrate. Noted elevated bnp [id number] esr 686. normal trop. normal tsh. Consults: Cardiology, nephrology 03/12: He relates to me he was on hospice until 2 months ago. Now he is looking to have a PD catheter reinserted. He still has left-sided reproducible chest pain worse on deep inspiration. Pro calcitonin elevated is on cefepime and vancomycin empirically. Cardiology sees no need for further cardiac work-up at this point ruled out OH. His blood pressure has improved slightly. 03/13: Seen on dialysis, still with pain. K 5.3 this morning. Mild CP and SOB. Weight up 5kg from dry weight of 110kg. No events overnight. On his home O2. Still with left-sided chest pain on deep inspiration. CTA completed with no aortic abnormalities and a small left lower lobe nodule that looks like a benign granuloma. Transition to p.o. Augmentin, he understands his primary problem is likely a quick tapering of his opioid pain medications when he left hospice and he will work with his outpatient physicians on his opioid regimen. CTA: CARDIOVASCULAR: Pulsation artifact at the aortic root is present. 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 Three-vessel arch with normal caliber at 2.9 cm. No dissection flap, flow- limiting stenosis, aneurysm or occlusion is apparent.. The descending thoracic aorta is normal in caliber as well at 2.8 cm and shows no filling defect suspicious for dissection. No periaortic soft tissue stranding. The celiac axis is widely patent. The SMA is also patent. Mixed calcified and noncalcified plaque near the SMA origin is present without evidence of hemod ynamically significant stenosis. Single renal arteries bilaterally are patent although mixed ossified noncalcified plaque at the origin of the right renal artery could result in hemodynamically significant stenosis. This can be confirmed with renal arterial Doppler ultrasound if indicated. The IRINA is patent. Circumferential calcified and noncalcified plaque in the proximal right common iliac artery is present. No flow-limiting stenosis. MEDIASTINUM & JERRICA: No adenopathy or masses. LUNGS: Platelike atelectasis in the posterior basal left lower lobe. A 5 mm pulmonary nodule in the left lower lobe posteriorly shows central calcification, compatible with a benign granuloma. Calcified 4 mm nodules in the right upper and right middle lobes are also noted. PLEURAL SPACE: No pleural effusions or pneumothorax. OSSEOUS & SOFT TISSUE: Unremarkable ABDOMEN: Cholecystectomy. No biliary dilation. Liver, spleen, pancreas, adrenal glands are unremarkable. Both kidneys show mild perirenal soft tissue stranding but symmetric enhancement. IVC is unremarkable. Multiple mildly prominent retroperitoneal lymph nodes are present around the abdominal aorta. No bulky adenopathy. Bowel shows no findings of obstruction, perforation or acute inflammation. Appendix is not imaged. Bones show no aggressive appearing osseous lesions. IMPRESSION: 1. Post CABG surgical changes with normal caliber thoracic aorta showing no evidence of aneurysm, hemodynamically significant flow limiting stenosis or evidence of dissection. 2. There may be hemodynamically significant stenosis of the origin of the right renal artery. This can be evaluated further with renal arterial Doppler ultrasound if clinically warranted. Mild bilateral perirenal soft tissue stranding is nonspecific and can reflect chronic kidney disease, and in the appropriate clinical context, pyelonephritis. Problem list: Atypical CP - neg trop and negative EKG. Likely costochondritis from cough and left basilar infiltrate Left Basilar infiltrate, ? PNA - treating as HCAP, will get chest CT CAD s/p CABG. Cath 2016 with patent grafts as noted above. HTN, now hypotensive Acute on chronic diastolic CHF; Echo 07/19 with preserved LV systolic function Hyperlipidemia Diabetes, II--insulin dependent ESRD on HD Greater than 30 minutes spent on d/c Discharge Information Condition at Discharge: Improved Follow Up: Weeks (1) Disposition/Orders: D/C to Home w/ HH Scheduled Amlodipine Besylate (Norvasc) 10 Mg Tablet, 10 MG PO DAILY, (Reported) Entered as Reported by: Betzy Norris on 07/24/18317 Last Action: Continued on 03/11/201538 by BOBBY CASEY MD Amoxicillin/Potassium Clav (Amox Tr-K Clv 500-125 Mg Tab) 1 Each Tablet, 1 TAB PO DAILY for Pneumonia for 5 Days, #5 Prescribed by: GALI ROMERO MD on 03/14/20 1053 Aspirin (Aspirin) 81 Mg Tab.chew, 1 TAB PO DAILY for , #30 Ref 3 (Reported) Entered as Reported by: TREMAYNE ROMERO RN on 07/16/19 1753 Last Action: Continued on 03/11/201538 by BOBBY CASEY MD Atorvastatin Calcium (Lipitor) 80 Mg Tablet, 80 MG PO HS for FOR CHOLESTEROL, #30 Ref 0 (Reported) Entered as Reported by: Betzy Norris on 07/24/18317 Last Action: Converted on 03/11/201538 by BOBBY CASEY MD Buspirone Hcl (Buspirone Hcl) 5 Mg Tablet, 5 MG PO TID for ., (Reported) Entered as Reported by: BHUPENDRA PEREZ on 01/17/20 1035 Last Action: Continued on 03/11/201538 by BOBBY CASEY MD Carvedilol (Coreg) 25 Mg Tablet, 12.5 MG PO BIDWMEALS for HTN, (Reported) Entered as Reported by: Betzy Norris on 07/24/18317 Last Action: HELD on 03/11/201538 by BOBBY CASEY MD Citalopram Hydrobromide (Citalopram Hbr) 40 Mg Tablet, 40 MG PO HS for anxiety, (Reported) Entered as Reported by: BRENDON SEGURA on 12/30/19 1016 Last Action: Converted on 03/11/201538 by BOBBY CASEY MD Divalproex Sodium (Divalproex Sodium) 500 Mg Tablet.dr, 2 TAB PO BID for , #60 Ref 1 (Reported) Entered as Reported by: TREMAYNE ROMERO RN on 07/16/191752 Last Action: Continued on 03/11/201538 by BOBBY CASEY MD Docusate Sodium (Docusate Sodium) 100 Mg Capsule, 1 CAP PO DAILY for , #30 (Reported) Entered as Reported by: TREMAYNE ROMERO RN on 07/16/191752 Last Action: Continued on 03/11/201538 by BOBBY CASEY MD Furosemide (Furosemide) 80 Mg Tablet, 120 MG PO BID for water pill, (Reported) Entered as Reported by: PETE AUGUSTINE on 03/11/202143 Last Action: New Order on 03/11/202143 by PETE AUGUSTINE Gabapentin (Gabapentin) 400 Mg Capsule, 400 MG PO BID for pain, (Reported) Entered as Reported by: BRENDON SEGURA on 12/30/19 1016 Last Action: Continued on 03/11/201538 by BOBBY CASEY MD Hydralazine Hcl (Hydralazine Hcl) 25 Mg Tablet, 1 TAB PO BID for hypertension, #90 Ref 5 (Reported) Entered as Reported by: BRENDON SEGURA on 12/30/19 1016 Last Action: HELD on 03/11/201538 by BOBBY CASEY MD Insulin Degludec (Tresiba) 100 Unit/1 Ml Vial, 42 UNIT SQ DAILY for Diabetes, (Reported) Entered as Reported by: BHUPENDRA PEREZ on 01/17/20 1058 Last Action: Converted on 03/11/201538 by BOBBY CASEY MD Lisinopril (Lisinopril) 20 Mg Tablet, 20 MG PO DAILY for FOR HYPERTENSION, #30 Ref 0 (Reported) Entered as Reported by: BHUPENDRA PEREZ on 01/17/20 1035 Last Action: HELD on 03/11/201538 by BOBBY CASEY MD Lorazepam (Ativan) 1 Mg Tablet, 0.5 MG PO Q4HRS for anxiety, (Reported) Entered as Reported by: BHUPENDRA PEREZ on 01/17/20 1050 Last Action: Continued on 03/11/201538 by BOBBY CASEY MD Lubiprostone (Amitiza) 24 Mcg Capsule, 1 CAP PO DAILY for , #60 Ref 5 (Reported) Entered as Reported by: TREMAYNE ROMERO RN on 07/16/191752 Last Action: Continued on 03/11/201538 by BOBBY CASEY MD Metolazone (Metolazone) 5 Mg Tablet, 5 MG PO DAILY, #30 Ref 0 (Reported) Entered as Reported by: Betzy Norris on 07/24/18 0302 Last Action: Converted on 03/11/201538 by BOBBY CASEY MD Oxycodone/Apap 10-325 (Percocet 10-325 Mg Tablet ) 1 Each Tablet, 1 TAB PO BID for pain, Ref 0 (Reported) Entered as Reported by: BHUPENDRA PEREZ on 01/17/20 105 Last Action: Continued on 03/11/201538 by BOBBY CASEY MD Pantoprazole Sodium (Protonix) 20 Mg Tablet.dr, 40 MG PO DAILY for , (Reported) Entered as Reported by: TREMAYNE ROMERO RN on 07/16/191752 Last Action: Converted on 03/11/201538 by BOBBY CASEY MD Quetiapine Fumarate (Seroquel) 100 Mg Tablet, 1 TAB PO QHS for , #30 Ref 1 (Reported) Entered as Reported by: TREMAYNE ROMERO RN on 07/16/191752 Last Action: Continued on 03/11/201538 by BOBBY CASEY MD Ranolazine (Ranexa) 1,000 Mg Tab.er.12h, 0.5 TAB PO BID for , #60 Ref 5 (Reported) Entered as Reported by: TREMAYNE ROMERO RN on 07/16/191752 Last Action: Converted on 03/11/201538 by BOBBY CASEY MD Sevelamer Carbonate (Renvela) 800 Mg Tablet, 800 MG PO TIDWMEALS, (Reported) Entered as Reported by: Betzy Norris on 07/24/18 030 Last Action: Continued on 03/11/201538 by BOBBY CASEY MD Trazodone Hcl (Trazodone Hcl) 300 Mg Tablet, 150 MG PO HS for insomnia, (Reported) Entered as Reported by: Betzy Norris on 07/24/18 0302 Last Action: Converted on 03/11/201538 by BOBBY CASEY MD [Diclofenac Sodium] 100 GM GEL..GRAM., 1 MAYRA TP BID for Costochondritis for 30 Days, #60 Prescribed by: GALI ROMERO MD on 03/14/20 1053 Scheduled PRN Cyclobenzaprine Hcl (Cyclobenzaprine Hcl) 10 Mg Tablet, 1 TAB PO TID PRN PRN for MUSCLE SPASMS, #90 (Reported) Entered as Reported by: ELVA WOOD on 08/31/19 0849 Last Action: Continued on 03/11/201538 by BOBBY CASEY MD Nitroglycerin (NITROGLYCERIN SubLingual) 0.4 Mg Tab.subl, 0.4 MG SL PRN Q5MIN PRN for CHEST PAIN, (Reported) Entered as Reported by: BRENDON SEGURA on 12/30/19 1016 Last Action: Continued on 03/11/201538 by BOBBY CASEY MD Ondansetron Hcl (Zofran) 4 Mg Tablet, 1 TAB PO PRN Q4HRS PRN for NAUSEA, #20 (Reported) Entered as Reported by: BRENDON SEGURA on 12/30/19 1016 Last Action: Converted on 03/11/201538 by BOBBY CASEY MD Discontinued Medications Furosemide (Furosemide) 40 Mg Tablet, 40 MG PO BID for CHF, (Reported) Discontinued Reason: Prescription changed Entered as Reported by: BHUPENDRA PEREZ on 01/17/20 1006 Last Action: HELD on 03/11/201538 by BOBBY CASEY MD Hydrocortisone/Pramoxine (Hydrocort-Pramoxine 2.5%-1% cm) 4 Gm Cream.appl, 1 MAYRA TP BID for skin irriation for 10 Days, #30 Ref 0 (Reported) Entered as Reported by: BRENDON SEGURA on 12/30/19 1016 Last Action: Discontinued on 03/11/204 by GALI AYALA MD March 14, 2020 11:07
[2020-03-14 11:16] VITALS: BP 128/50
[2020-03-14] MEDS ORDERED: INSULIN LISPRO 300 UNITS/3 ML VIAL. SQ SCH (11:30)
--- NOTE | 2020-03-14 11:38 | PDOC ---
SUBJECTIVE ROS Stable OBJECTIVE Vital Signs Vital Signs Date Time Temp Pulse Resp B/P (MAP) Pulse Ox O2 Delivery O2 Flow Rate FiO2 03/14/20 11:16 98.4 73 16 128/50 (76) 98 Room Air 98.4 03/14/20 08:00 3.0 I & 0 Intake and Output 03/14/20 07:00 Intake Total 630 ml Balance 630 ml Intake Oral 630 ml # Voids 2 PHYSICAL EXAM Physical Exam GENERAL: NAD HEENT: OM moist NECK: supple CARDIOVASCULAR: S1, S2. LUNGS: Diminished breath sounds at the base ABDOMEN: Soft, : No Hale. EXTREMITIES: no edema NEURO- Grossly normal DERM No Rash : DIAGNOSIS/ASSESSMENT Assessment & Plan ESRD:On TTS under Dr Hernandez No indication for HD today Atypical CP Left Basilar infiltrate, ? PNA Diabetes, insulin-dependent. Chronic pain syndrome- on narcotics Hx of CAD s/p CABG Chronic congestive heart failure Hx of Depression. History of previous hip fracture from fall, left femoral fracture, had surgeries done for that. Anemia: No indication for CHLOE HTN- Hypotensive at presentation, stable currently History of drug overdose with both morphine as well as fentanyl. Seizure disorder. COMMENT/RELEVANT DATA Meds Current Medications Medications (Trade) Dose Ordered Sig/Brittani Start Time Stop Time Status Last Admin Dose Admin Acetaminophen (Tylenol) 500 mg 1X PRN PRN 03/12/20 14:30 03/13/20 14:29 DC Albumin Human 200 ml @ 200 mls/hr 1X PRN PRN 03/12/20 14:30 03/12/20 20:29 DC Amlodipine Besylate (Norvasc) 10 mg DAILY 03/12/20 09:00 03/14/20 08:53 10 MG Amoxicillin/ Clavulanate Potassium (Augmentin 500/ 125mg) 1 tab DAILY 03/14/20 09:45 03/14/20 11:14 1 TAB Aspirin (Aspirin Chewable) 81 mg DAILY 03/12/20 09:00 03/14/20 08:53 81 MG Atorvastatin Calcium (Lipitor) 20 mg QHS 03/12/20 21:00 03/13/20 20:48 20 MG Azithromycin 250 ml @ 250 mls/hr 1X ONCE 03/11/20 15:15 03/11/20 16:14 DC 03/11/20 16:04 250 MLS/HR Buspirone HCl (Buspar) 5 mg TID 5/12/20 21:00 03/14/20 08:53 5 MG Cefepime HCl (Maxipime) 1 gm Q24H 03/11/20 20:00 03/14/20 09:47 DC 03/13/20 20:47 1 GM Ceftriaxone Sodium (Rocephin) 1 gm 1X ONCE 03/11/20 15:15 03/11/20 15:16 DC 03/11/20 16:03 1 GM Citalopram Hydrobromide (CeleXA) 40 mg DAILY 03/12/20 09:00 03/14/20 08:54 40 MG Cyclobenzaprine HCl (Flexeril) 10 mg TID PRN PRN 03/11/20 15:45 03/14/20 08:53 10 MG Dextrose (Dextrose 50%-Water Syringe) 12.5 gm PRN Q15MIN PRN 03/14/20 08:00 Diclofenac Sodium (Voltaren) 1 jv BID 03/14/20 11:00 03/14/20 11:14 1 JV Diphenhydramine HCl (Benadryl) 25 mg 1X PRN PRN 03/12/20 14:30 03/13/20 14:29 DC Divalproex Sodium (Depakote) 1,000 mg BID 03/11/20 21:00 03/14/20 08:54 1,000 MG Docusate Sodium (Colace) 100 mg DAILY 03/12/20 09:00 03/14/20 08:53 100 MG Fentanyl Citrate (Fentanyl 2ml Vial) 50 mcg PRN Q3HRS PRN 03/12/20 11:45 03/14/20 07:14 50 MCG Gabapentin (Neurontin) 400 mg BID 03/11/20 21:00 03/14/20 08:53 400 MG Guaifenesin (Robitussin Dm) 10 ml PRN Q6HRS PRN 03/12/20 11:45 03/13/20 12:29 10 ML Hydrocortisone (Proctosol-Hc) 1 jv BID 03/11/20 21:00 Info (CONTRAST GIVEN -- Rx MONITORING) 1 each PRN DAILY PRN 03/14/20 06:30 03/16/20 06:29 Info (PHARMACY MONITORING -- do not chart) 1 each PRN DAILY PRN 03/13/20 08:30 Insulin Glargine (Lantus Syringe) 42 unit QHS 03/12/20 21:00 03/13/20 21:00 42 UNIT Insulin Human Lispro (HumaLOG) 0-9 UNITS TIDACHC 03/14/20 11:30 03/14/20 11:20 5 UNITS Iohexol (Omnipaque 350 Mg/ml) 90 ml 1X ONCE 03/14/20 06:15 03/14/20 06:16 DC 03/14/20 06:15 90 ML Labetalol HCl (Normodyne Iv Push) 20 mg PRN Q2HR PRN 03/11/20 17:00 Lactobacillus Rhamnosus (Culturelle) 1 cap BID 03/12/20 21:00 03/14/20 08:54 1 CAP Lidocaine (Lidoderm) 1 patch DAILY 03/12/20 12:00 03/13/20 12:43 1 PATCH Lorazepam (Ativan) 0.5 mg PRN Q4HRS PRN 03/11/20 16:00 Lubiprostone (Amitiza) 24 mcg DAILY 03/12/20 09:00 03/14/20 08:54 24 MCG Metolazone (Zaroxolyn) 5 mg DAILY 03/12/20 09:00 03/14/20 08:54 5 MG Miscellaneous (Lidoderm Patch Removal) 1 ea QHS 03/12/20 21:00 03/13/20 20:49 1 EA Nitroglycerin (Nitrostat) 0.4 mg PRN Q5MIN PRN 03/11/20 15:45 Ondansetron HCl (Zofran Odt) 4 mg PRN Q4HRS PRN 03/11/20 17:15 Ondansetron HCl (Zofran) 4 mg PRN Q8HRS PRN 03/11/20 15:15 03/12/20 15:14 DC Oxycodone/ Acetaminophen (Percocet 10/325) 1 tab PRN Q6HRS PRN 03/12/20 14:00 03/14/20 08:53 1 TAB Pantoprazole Sodium (Protonix) 40 mg DAILYAC 03/12/20 07:30 03/14/20 08:54 40 MG Quetiapine Fumarate (SEROquel) 100 mg QHS 03/11/20 21:00 03/13/20 20:48 100 MG Ranolazine (Ranexa) 500 mg BID 03/11/20 21:00 03/14/20 08:54 500 MG Sevelamer Carbonate (Renvela) 800 mg TIDWMEALS 03/12/20 08:00 03/14/20 11:14 800 MG Sodium Chloride 1,000 ml @ 400 mls/hr Q2H30M PRN 03/13/20 07:00 03/13/20 18:59 DC Trazodone HCl (Desyrel) 150 mg QHS 03/11/20 21:00 03/13/20 20:48 150 MG Vancomycin HCl (Vanco Per Pharmacy) 1 each PRN DAILY PRN 03/11/20 15:30 03/14/20 09:47 DC 03/13/20 08:58 1 EACH Vancomycin HCl (Vancomycin Random Level) 1 each 1X ONCE 03/15/20 05:00 03/15/20 05:01 Cancel Vancomycin HCl 1.75 gm/Sodium Chloride 500 ml @ 250 mls/hr 1X ONCE 03/13/20 16:00 03/13/20 17:59 DC 03/13/20 17:35 250 MLS/HR Vancomycin HCl 2 gm/Sodium Chloride 500 ml @ 250 mls/hr 1X ONCE 03/11/20 15:45 03/11/20 17:44 DC 03/11/20 17:21 250 MLS/HR Lab Laboratory Tests Test 03/13/20 20:56 03/14/20 04:50 03/14/20 08:36 03/14/20 10:58 Glucose (Fingerstick) 359 mg/dL (70-99) 228 mg/dL (70-99) 243 mg/dL (70-99) Sodium Level 136 mmol/L (136-145) Potassium Level 5.1 mmol/L (3.5-5.1) Chloride Level 98 mmol/L (98-107) Carbon Dioxide Level 31 mmol/L (21-32) Anion Gap 7 (6-14) Blood Urea Nitrogen 42 mg/dL (8-26) Creatinine 6.1 mg/dL (0.7-1.3) Estimated GFR (Cockcroft-Gault) 9.7 Glucose Level 260 mg/dL (70-99) Calcium Level 8.1 mg/dL (8.5-10.1) Results All relevant outside records, renal labs, imaging studies, telemetry/EKG's were reviewed. JEAN PAUL CESPEDES MD March 14, 2020 11:38
--- NOTE | 2020-03-14 12:05 | PDOC ---
CARDIO Progress Notes Date and Time Date of Service 03/14/2020 Time of Evaluation 0950 Subjective Subjective: No Chest Pain, No shortness of breath, No Palpitations Vitals Vitals Vital Signs Date Time Temp Pulse Resp B/P (MAP) Pulse Ox O2 Delivery O2 Flow Rate FiO2 03/14/20 11:16 98.4 73 16 128/50 (76) 98 Room Air 98.4 03/14/20 08:00 3.0 Weight Weight [ ] Input and Output Intake and Output Intake and Output 03/14/20 07:00 Intake Total 630 ml Balance 630 ml Intake Oral 630 ml # Voids 2 Laboratory Labs Laboratory Tests Test 03/13/20 20:56 03/14/20 04:50 03/14/20 08:36 03/14/20 10:58 Glucose (Fingerstick) 359 mg/dL (70-99) 228 mg/dL (70-99) 243 mg/dL (70-99) Sodium Level 136 mmol/L (136-145) Potassium Level 5.1 mmol/L (3.5-5.1) Chloride Level 98 mmol/L (98-107) Carbon Dioxide Level 31 mmol/L (21-32) Anion Gap 7 (6-14) Blood Urea Nitrogen 42 mg/dL (8-26) Creatinine 6.1 mg/dL (0.7-1.3) Estimated GFR (Cockcroft-Gault) 9.7 Glucose Level 260 mg/dL (70-99) Calcium Level 8.1 mg/dL (8.5-10.1) Microbiology Micro Microbiology 03/11/20 Blood Culture - Final, Complete Physical Exam Chest: Symmetric LUNGS: Clear to Auscultation Heart: RRR (SR no ectopies) Extremities: No Calf Tenderness Neurology: alert, oriented, follow commands Assessment Assessment 1. Atypical CP: trops nml. EKG SR without acute changes. Possibly GI, esophageal spasm? 2. CAD s/p CABG. Cath 2017 with patent grafts as noted above. Recent stress test unremarkable. Clinically stable. 4. HTN: controlled 5. Chronic HFpEF: compensated 6. Hyperlipidemia; statin therapy 7. Diabetes, II 8. ESRD on HD 9. Brief hypotension: suspect vasovagal response from the pain, reported only during HD. No further episodes. 10. Suspect COPD with continued tobaccoism Recommendations 1. ASA, Continue secondary prevention measures. 2. Fluid off-loading via HD 3. May DC per cardiac standpoint. 4. Cardiac clearance was requested per general surgery in regards to PD cath pl acement. Pt is low to moderate risk for perioperative CV events for noncardiac surgery KALIN DIEHL ABRASIVE BAND WINDER March 14, 2020 12:05
--- NOTE | 2020-03-14 13:05 | NUR ---
PT STATED TO THIS RN THAT WHEN HE STOPPED RECEIVING HOSPICE SERVICES, THAT THE COMPANY REMOVED ALL THE OXYGEN EQUIPMENT FROM HIS HOME. PT HAS BEEN ON 3L NC PRN. PT STATED HE NEEDS A PRESCRIPTION FOR THE OXYGEN. THIS RN EXPLAINED THAT HE NEEDS TO HAVE A 6 MINUTE WALK DONE BEFORE WRITING A SCRIPT. PT REFUSING TO STAY FOR 6 MINUTE WALK. PT STATED HE WILL HAVE [facility] HELP HIM WITH HIS OXYGEN. PT VERBALIZED UNDERSTANDING OF LEAVING WITHOUT OXYGEN. PT STATES HIS HAS A OXYGEN SATURATION MONITOR TO CHECK HIM AT HOME.
--- NOTE | 2020-03-14 13:12 | NUR ---
Discharge Note: JULIAN GARCÍA Discharge instructions and discharge home medications reviewed with Patient and a copy given. All questions have been answered and understanding verbalized. The following instructions and handouts were given: f/u with pcp within one week. f/u with technical support intern as needed. continue dialysis as scheduled. Discontinued lines and drains: Peripheral IV intact. Patient discharged to Home or Services with Family Member via Wheelchair
[2020-03-15] MEDS ORDERED: VANCOMYCIN RANDOM LEVEL. MC ONE (05:00)
== END 2020-03-14 13:05 | disposition home health service (06) | DRG 205 ==
LOC: ER 12:37 → ED HOLD 15:15 → 6 SOUTH 19:09
PROVIDERS: ADMIT Internal Medicine; ATTEND Internal Medicine
PROC: 5A1D70Z Performance of Urinary Filtration, Intermittent, Less than 6 Hours Per Day (ICD-10-PCS; principal; 2020-03-13)
DX: M94.0 Chondrocostal junction syndrome [Tietze] (principal); J15.6 Pneumonia due to other Gram-negative bacteria; I50.33 Acute on chronic diastolic (congestive) heart failure; N18.6 End stage renal disease; I13.2 Hypertensive heart and chronic kidney disease with heart failure and with stage 5 chronic kidney disease, or end stage renal disease; Z20.828 Contact with and (suspected) exposure to other viral communicable diseases; E11.22 Type 2 diabetes mellitus with diabetic chronic kidney disease; E78.5 Hyperlipidemia, unspecified; I25.10 Atherosclerotic heart disease of native coronary artery without angina pectoris; I25.5 Ischemic cardiomyopathy; E21.3 Hyperparathyroidism, unspecified; F32.9 Major depressive disorder, single episode, unspecified; G47.33 Obstructive sleep apnea (adult) (pediatric); K21.9 Gastro-esophageal reflux disease without esophagitis; I95.9 Hypotension, unspecified; E11.42 Type 2 diabetes mellitus with diabetic polyneuropathy; G89.4 Chronic pain syndrome; D64.9 Anemia, unspecified; G40.909 Epilepsy, unspecified, not intractable, without status epilepticus; I25.2 Old myocardial infarction; Z79.4 Long term (current) use of insulin; Z85.118 Personal history of other malignant neoplasm of bronchus and lung; Z86.711 Personal history of pulmonary embolism; Z86.73 Personal history of transient ischemic attack (TIA), and cerebral infarction without residual deficits; Z87.891 Personal history of nicotine dependence; Z95.1 Presence of aortocoronary bypass graft; Z99.2 Dependence on renal dialysis; Z90.49 Acquired absence of other specified parts of digestive tract; Z88.8 Allergy status to other drugs, medicaments and biological substances
CPT/HCPCS: 36415; 71045; 71275; 74175; 80048; 80053; 80061; 80202; 82553; 82728; 82962; 83605; 83735; 83880; 84145; 84443; 84484; 85025; 86140; 87040; 87070; 87205; 87635; 93005; 96365; 96366; 96367; 96375; 99285; 99406; J0456; J0692; J0696; J1815; J3010; J3370; J7040; Q9967; G0378

== ENCOUNTER 2020-04-04 10:57 | Day surgery (SDC) | payer MEDICARE, OTHER ==
[~2020-04-04] VITALS: Ht 188 cm; Wt 110.0 kg
[~2020-04-04 10:57] MED LIST changes: +AMOX1TAB10 PO; +DIPH25TA24 PO; +Diclofenac Sodium TP; +FOLI0.8T32 PO; +HEPARIN SODIUM 5,000 UNIT in IV NORMAL SALINE 500ML BAG 500 ML IRR ONE; +IBUP-1007 PO; +INSU100V31 SQ; +IV RINGERS,LACTATED 1000ML 1,000 ML IV SCH; +LIDOCAINE 1% PF 2 ML VIAL. ID PRN; +PROCHLORPERAZINE 10 MG/2 ML VIAL. IV PRN; +fentaNYL PF VIAL 100 MCG/2 ML VIAL IV PRN
[2020-04-04] MEDS ORDERED: ceFAZolin 2GM PREMIX 2 GM/50 ML BAG IV ONE (11:00)
[2020-04-04] MEDS ORDERED: INSULIN LISPRO 100 UNIT/ML 3ML VIAL for OP,RR ONLY. SQ PRN (11:15)
[2020-04-04] MEDS ORDERED: SEVOFLURANE 61 TO 120 MINUTES. IH ONE ×2 (11:36→13:35)
[2020-04-04] MEDS ORDERED: fentaNYL PF VIAL 100 MCG/2 ML VIAL ONE (11:37)
[2020-04-04] MEDS ORDERED: NEOSTIGMINE METHYLSULFATE 5 MG/5 ML SYRINGE. ONE (11:37)
[2020-04-04] MEDS ORDERED: GLYCOPYRROLATE 1 MG/5 ML VIAL. ONE (11:37)
[2020-04-04] MEDS ORDERED: ROCURONIUM 50 MG/5 ML VIAL. ONE (11:37)
[2020-04-04] MEDS ORDERED: PROPOFOL 10 MG/ML (20ML) VIAL. IV ONE (11:38)
[2020-04-04] MEDS ORDERED: ONDANSETRON PF 4 MG/2 ML VIAL. ONE (11:38)
[2020-04-04] MEDS ORDERED: LIDOCAINE 2% PF 5 ML VIAL. ONE (11:38)
[2020-04-04] MEDS ORDERED: DEXAMETHASONE SOD PHOS 4 MG/ML VIAL ONE (11:38)
[2020-04-04 12:03] LABS: BASO % 1 % (0-3); EOS # 0.1 x10^3/uL (0.0-0.7); EOS % 2 % (0-3); HEMATOCRIT 33.8 % (39.0-53.0); HEMOGLOBIN 11.8 g/dL (13.0-17.5); LYMPH # 1.8 x10^3/uL (1.0-4.8); LYMPH % 25 % (24-48); MEAN CORPUSCULAR HEMOGLOBIN 33 pg (25-35); MEAN CORPUSCULAR HGB CONC 35 g/dL (31-37); MEAN CORPUSCULAR VOLUME 94 fL (79-100); MONO # 0.8 x10^3/uL (0.0-1.1); MONO % 12 % (0-9); NEUT # 4.5 x10^3/uL (1.8-7.7); NEUT % 61 % (31-73); PLATELET COUNT 205 x10^3/uL (140-400); RED CELL DISTRIBUTION WIDTH 14.1 % (11.5-14.5); WHITE BLOOD COUNT 7.3 x10^3/uL (4.0-11.0)
[2020-04-04 12:09] LABS: ALBUMIN 3.2 g/dL (3.4-5.0); CALCIUM 8.6 mg/dL (8.5-10.1); CREATININE 6.5 mg/dL (0.7-1.3); POTASSIUM 4.6 mmol/L (3.5-5.1)
[2020-04-04] MEDS ORDERED: BUPIVACAINE-EPI 0.5%-1:200000 MPF 30 ML VIAL. ONE (12:14)
[2020-04-04] MEDS ORDERED: DEXTROSE 50% 25 GM / 50ML DISP.SYRIN. IV ONE (12:15)
[2020-04-04] MEDS ORDERED: IV NORMAL SALINE 1000ML BAG 1,000 ML IV ONE (12:15)
[2020-04-04] MEDS ORDERED: PHENYLEPHRINE in 0.9% NACL PF 1 MG/10 ML SYRINGE. IV ONE (13:35)
--- NOTE | 2020-04-04 13:51 | PDOC ---
BRIEF OPERATIVE NOTE Date: Apr 04, 2020 Pre-Op Diagnosis ESRD on hemodialysis Post-Op Diagnosis same Procedure Performed l/s placement of PD catheter Surgeon Timi Audiovisual Tech De FARFAN Anesthesia Type: General Blood Loss 5cc IV Fluid 200cc Urine Output 125cc Specimens Obtained none Findings no abdominal adhesions Complications none Operative Note Wk # [id number] RUPINDER CASIANO MD Apr 04, 2020 13:51
[2020-04-04] MEDS ORDERED: OXYC1TAB22 PO (13:56)
[2020-04-04 14:05] VITALS: BP 134/69
--- NOTE | 2020-04-04 14:36 | OP ---
DATE OF SURGERY: 04/04/2020 PREOPERATIVE DIAGNOSIS: End-stage renal disease, on hemodialysis. POSTOPERATIVE DIAGNOSIS: End-stage renal disease, on hemodialysis. PROCEDURE: Laparoscopic placement of peritoneal dialysis catheter. SURGEON: Jorge Casiano MD ENVIRONMENTAL ENGINEERING INTERN: NAHEED Paulino ANESTHESIA: General endotracheal. ESTIMATED BLOOD LOSS: 5 mL. INTRAVENOUS FLUIDS: 200 mL. URINE OUTPUT: 125 mL. FINDINGS: The abdomen was free of adhesions from previous catheter and its removal. DESCRIPTION OF PROCEDURE: The patient brought to the operating suite, given a general endotracheal anesthetic. Hale catheter placed to dependent drainage and the abdomen prepped and draped in usual sterile fashion. An epigastric incision scar was infiltrated with local, incised and a 5 mm Visiport used to safely gain access into the abdominal cavity, taking care to avoid injury to abdominal contents. Pneumoperitoneum established. Camera inserted. Inspection carried out with results as noted above. Under direct vision, the catheter was placed through a left-sided incision using the Veress technique. The Dacron cuff was seated just above the peritoneum. The remaining catheter was tunneled superolaterally out of the exit site seating the subcutaneous Dacron cuff. Abdomen decompressed. Catheter flushed with 500 mL of normal saline, which it readily accepted and drained a similar amount. Catheter was "packed" with heparinized saline. Incisions closed with 3-0 Vicryl subcutaneous tissues, 4-0 Monocryl in the skin. Sterile dressings applied. Hale catheter removed. The patient was awakened from his anesthetic and taken to the recovery room in satisfactory condition. JORGE CASIANO MD DR: EDENILSON/kareem JOB#: [id number] / [id number]
== END 2020-04-04 14:45 | disposition home or self-care (01) ==
LOC: SURG 10:57
PROVIDERS: ATTEND Surgery
DX: I13.2 Hypertensive heart and chronic kidney disease with heart failure and with stage 5 chronic kidney disease, or end stage renal disease (principal); E11.22 Type 2 diabetes mellitus with diabetic chronic kidney disease; I50.9 Heart failure, unspecified; E11.42 Type 2 diabetes mellitus with diabetic polyneuropathy; N18.6 End stage renal disease; K21.9 Gastro-esophageal reflux disease without esophagitis; D64.9 Anemia, unspecified; F41.9 Anxiety disorder, unspecified; F32.9 Major depressive disorder, single episode, unspecified; E78.00 Pure hypercholesterolemia, unspecified; I25.2 Old myocardial infarction; I25.10 Atherosclerotic heart disease of native coronary artery without angina pectoris; G43.909 Migraine, unspecified, not intractable, without status migrainosus; E66.9 Obesity, unspecified; Z68.31 Body mass index [BMI] 31.0-31.9, adult; Z79.84 Long term (current) use of oral hypoglycemic drugs; Z86.718 Personal history of other venous thrombosis and embolism; Z87.01 Personal history of pneumonia (recurrent); Z86.711 Personal history of pulmonary embolism; Z87.891 Personal history of nicotine dependence; Z90.49 Acquired absence of other specified parts of digestive tract; Z86.73 Personal history of transient ischemic attack (TIA), and cerebral infarction without residual deficits
CPT/HCPCS: 36415; 49324; 80048; 82040; 82962; 85025; C1750; J0696; J1100; J1644; J2370; J2405; J2704; J2710; J3010; J3490; J7030; J7040; J7042

== ENCOUNTER 2020-04-20 20:11 | Emergency (ER) | payer MEDICARE, OTHER ==
[~2020-04-20] VITALS: Ht 188 cm; Wt 113.6 kg
[~2020-04-20 20:11] MED LIST changes: -HEPARIN SODIUM 5,000 UNIT in IV NORMAL SALINE 500ML BAG 500 ML IRR ONE; -IV RINGERS,LACTATED 1000ML 1,000 ML IV SCH; -LIDOCAINE 1% PF 2 ML VIAL. ID PRN; -PROCHLORPERAZINE 10 MG/2 ML VIAL. IV PRN; -fentaNYL PF VIAL 100 MCG/2 ML VIAL IV PRN
[2020-04-20] MEDS ORDERED: fentaNYL PF VIAL 100 MCG/2 ML VIAL IV ONE ×2 (20:30→22:00)
[2020-04-20] MEDS ORDERED: FAMOTIDINE 20 MG/2 ML VIAL IVP ONE (20:30)
[2020-04-20] MEDS ORDERED: IV NORMAL SALINE 500ML BAG 500 ML IV ONE (20:30)
[2020-04-20] MEDS ORDERED: ONDANSETRON PF 4 MG/2 ML VIAL. IVP ONE ×2 (20:30→22:00)
[2020-04-20 20:46] LABS: BASO # 0.1 x10^3/uL (0.0-0.2); BASO % 1 % (0-3); EOS # 0.3 x10^3/uL (0.0-0.7); EOS % 3 % (0-3); HEMATOCRIT 33.2 % (39.0-53.0); HEMOGLOBIN 11.5 g/dL (13.0-17.5); LYMPH # 2.2 x10^3/uL (1.0-4.8); LYMPH % 23 % (24-48); MEAN CORPUSCULAR HEMOGLOBIN 33 pg (25-35); MEAN CORPUSCULAR HGB CONC 35 g/dL (31-37); MEAN CORPUSCULAR VOLUME 95 fL (79-100); MONO # 0.9 x10^3/uL (0.0-1.1); MONO % 10 % (0-9); NEUT % 63 % (31-73); PLATELET COUNT 263 x10^3/uL (140-400); RED BLOOD COUNT 3.49 x10^6/uL (4.30-5.70); RED CELL DISTRIBUTION WIDTH 13.3 % (11.5-14.5); WHITE BLOOD COUNT 9.5 x10^3/uL (4.0-11.0)
[2020-04-20 20:54] LABS: PROTHROMBIN TIME PATIENT 11.7 SEC (11.7-14.0)
[2020-04-20 20:56] LABS: CALCIUM 8.4 mg/dL (8.5-10.1); CREATININE 6.4 mg/dL (0.7-1.3); GFR 9.2; POTASSIUM 4.6 mmol/L (3.5-5.1)
[2020-04-20 20:59] LABS: ALBUMIN 2.9 g/dL (3.4-5.0); ALBUMIN/GLOBULIN RATIO 0.7 (1.0-1.7); TOTAL BILIRUBIN 0.2 mg/dL (0.2-1.0)
--- NOTE | 2020-04-20 21:03 | RAD ---
CT ABDOMEN PELVIS WO CONTRAST INDICATION: Reason: RLQ abdominal pain, eval for acute appy / Spl. Instructions: / History: EXAM: Noncontrast CT of the abdomen and pelvis. Coronal and sagittal reformatted images were performed. PQRS compliance statement: One or more of the following individualized dose reduction techniques were utilized for this examination: 1. Automated exposure control 2. Adjustment of the mA and/or kV according to patient size 3. Use of iterative reconstruction technique COMPARISON: None FINDINGS: No free air, free fluid, or fluid collection. Percutaneous catheter coiled in the right lower quadrant. Lower chest: The visualized lower lungs are aerated. No pleural or pericardial effusion. Cardiomegaly. Coronary artery atherosclerotic disease. ABDOMEN: Liver: The noncontrast liver is homogeneous in attenuation. Gallbladder and biliary: Cholecystectomy. Normal caliber bile ducts. Spleen: Normal spleen. Pancreas: The noncontrast pancreas is homogeneous in attenuation without peripancreatic inflammatory changes. Adrenal glands: Normal adrenal glands. Kidneys and ureters: No opaque urinary calculi. No hydronephrosis. Symmetric perinephric stranding. GI tract: The stomach is decompressed and poorly evaluated. Normal caliber small bowel and colon. Normal appendix. Vascular structures: Normal caliber abdominal aorta. Moderate aortoiliac atherosclerotic disease. Lymph nodes: No lymphadenopathy in the abdomen or pelvis. PELVIS: Genitourinary system: Normal bladder. SKELETAL STRUCTURES AND SOFT TISSUES: Degenerative changes of the spine IMPRESSION: No acute findings. Normal caliber bowel. Normal appendix. Electronically signed by: Sean Blancas MD (04/20/2020 9:00 PM) [id number]
[2020-04-20 21:04] LABS: VAL ACID 33 mcg/mL (50-100)
[2020-04-20 21:12] LABS: BILIRUBIN,URINE NEGATIVE (NEG); CLARITY,URINE CLEAR; COLOR,URINE YELLOW; NITRITE,URINE NEGATIVE (NEG); PROTEIN,URINE >=300 mg/dL (NEG-TRACE); UROBILINOGEN,URINE 0.2 mg/dL (0.2 mg/dL)
[2020-04-20 21:17] LABS: BACTERIA,URINE 0 /HPF (0-FEW); SQUAMOUS EPITHELIAL CELL,UR FEW /LPF; WBC,URINE 0 /HPF (0-4)
--- NOTE | 2020-04-20 21:25 | PHYS DOC ---
Past Medical History Past Medical History: Anxiety, CAD, Cancer, CHF, Diabetes-Type II, High Cholesterol, Heart Disease, Hypertension, AR, Renal Disease, Renal Failure, Seizure Additional Past Medical Histor: dialysis; chronic back pain Past Surgical History: Cholecystectomy, Coronary Bypass Surgery Additional Past Surgical Histo: HERNIA, peritoneal dialysis cath Smoking Status: Current Every Day Smoker Alcohol Use: Occasionally Drug Use: None General Adult EDM: Chief Complaint: NAUSEA/VOMITING/DIARRHA HPI: HPI: Patient is a 54 year old male presents with report of right lower quadrant abdominal pain with radiation to right flank x1 day. Patient does report some associated nausea and vomiting. Reports had some "dark brown" emesis. Patient does have history of end-stage renal disease on hemodialysis Tuesday//Tuesday. Patient recently had peritoneal dialysis cath placed on 04/04/2020. Patient has yet to use peritoneal dialysis catheter. Denies fever or chills. Denies known sick contacts. Denies exposure to COVID-19. Review of Systems: Review of Systems: Constitutional: Denies fever or chills Eyes: Denies redness or eye pain HENT: Denies nasal congestion or sore throat Respiratory: Denies cough or shortness of breath Cardiovascular: Denies chest pain or palpitations GI: Reports abdominal pain, nausea and vomiting : Denies dysuria or hematuria Musculoskeletal: Denies joint pain; reports flank pain Integument: Denies rash or skin lesions Neurologic: Denies headache, focal weakness or sensory changes Complete systems were reviewed and found to be within normal limits, except as documented in this note. Current Medications: Current Medications Medications (Trade) Dose Ordered Sig/[facility] Start Time Stop Time Status Last Admin Dose Admin Famotidine (Pepcid Vial) 20 mg 1X ONCE 04/20/20 20:30 04/20/20 20:43 DC 04/20/20 20:56 20 MG Fentanyl Citrate (Fentanyl 2ml Vial) 50 mcg 1X ONCE 04/20/20 20:30 04/20/20 20:43 DC 04/20/20 20:57 50 MCG Ondansetron HCl (Zofran) 4 mg 1X ONCE 04/20/20 20:30 04/20/20 20:43 DC 04/20/20 20:56 4 MG Sodium Chloride 500 ml @ 500 mls/hr 1X ONCE 04/20/20 20:30 04/20/20 21:29 Allergies: Allergies: Allergies Coded Allergies Type Severity Reaction Last Updated Verified hydromorphone Allergy Severe Anaphylaxis 04/04/20 Yes Physical Exam: PE: Constitutional: Well developed, well nourished, no acute distress, non-toxic appearance HENT: Normocephalic, atraumatic Eyes: Conjunctiva normal, no discharge Neck: Normal range of motion, no tenderness, supple Lungs & Thorax: No respiratory distress, equal chest rise and fall Abdomen: Soft, right lower tenderness Skin: Warm, dry, no erythema, no rash Back: No tenderness, right CVA tenderness Extremities: No tenderness, ROM intact, no edema Neurologic: Alert and oriented X 3, no focal deficits noted Psychologic: Affect normal, judgment normal Current Patient Data: Labs: Laboratory Tests Test 04/20/20 20:35 04/20/20 21:05 White Blood Count 9.5 x10^3/uL (4.0-11.0) Red Blood Count 3.49 x10^6/uL (4.30-5.70) L Hemoglobin 11.5 g/dL (13.0-17.5) L Hematocrit 33.2 % (39.0-53.0) L Mean Corpuscular Volume 95 fL (79-100) Mean Corpuscular Hemoglobin 33 pg (25-35) Mean Corpuscular Hemoglobin Concent 35 g/dL (31-37) Red Cell Distribution Width 13.3 % (11.5-14.5) Platelet Count 263 x10^3/uL (140-400) Neutrophils (%) (Auto) 63 % (31-73) Lymphocytes (%) (Auto) 23 % (24-48) L Monocytes (%) (Auto) 10 % (0-9) H Eosinophils (%) (Auto) 3 % (0-3) Basophils (%) (Auto) 1 % (0-3) Neutrophils # (Auto) 6.0 x10^3/uL (1.8-7.7) Lymphocytes # (Auto) 2.2 x10^3/uL (1.0-4.8) Monocytes # (Auto) 0.9 x10^3/uL (0.0-1.1) Eosinophils # (Auto) 0.3 x10^3/uL (0.0-0.7) Basophils # (Auto) 0.1 x10^3/uL (0.0-0.2) Prothrombin Time 11.7 SEC (11.7-14.0) Prothrombin Time INR 0.9 (0.8-1.1) Activated Partial Thromboplast Time 28 SEC (24-38) Sodium Level 131 mmol/L (136-145) L Potassium Level 4.6 mmol/L (3.5-5.1) Chloride Level 93 mmol/L (98-107) L Carbon Dioxide Level 28 mmol/L (21-32) Anion Gap 10 (6-14) Blood Urea Nitrogen 45 mg/dL (8-26) H Creatinine 6.4 mg/dL (0.7-1.3) H Estimated GFR (Cockcroft-Gault) 9.2 BUN/Creatinine Ratio 7 (6-20) Glucose Level 331 mg/dL (70-99) H Lactic Acid Level 0.7 mmol/L (0.4-2.0) Calcium Level 8.4 mg/dL (8.5-10.1) L Magnesium Level 2.0 mg/dL (1.8-2.4) Total Bilirubin 0.2 mg/dL (0.2-1.0) Aspartate Amino Transferase (AST) 21 U/L (15-37) Alanine Aminotransferase (ALT) 12 U/L (16-63) L Alkaline Phosphatase 175 U/L (46-116) H Total Protein 7.0 g/dL (6.4-8.2) Albumin 2.9 g/dL (3.4-5.0) L Albumin/Globulin Ratio 0.7 (1.0-1.7) L Lipase 181 U/L (73-393) Valproic Acid Level 33 mcg/mL (50-100) L Valproic Acid Last Dose Date Valproic Acid Last Dose Time Urine Collection Type Unknown Urine Color Yellow Urine Clarity Clear Urine pH 7.0 (<5.0-8.0) Urine Specific [place] 1.015 (1.000-1.030) Urine Protein >=300 mg/dL (NEG-TRACE) Urine Glucose (UA) 500 mg/dL (NEG) Urine Ketones (Stick) Negative mg/dL (NEG) Urine Blood Trace (NEG) Urine Nitrite Negative (NEG) Urine Bilirubin Negative (NEG) Urine Urobilinogen Dipstick 0.2 mg/dL (0.2 mg/dL) Urine Leukocyte Esterase Negative (NEG) Urine RBC 1-2 /HPF (0-2) Urine WBC 0 /HPF (0-4) Urine Squamous Epithelial Cells Few /LPF Urine Bacteria 0 /HPF (0-FEW) Urine Mucus Slight /LPF Laboratory Tests 04/20/20 20:35 Laboratory Tests 04/20/20 20:35 Vital Signs: Vital Signs Date Time Temp Pulse Resp B/P (MAP) Pulse Ox O2 Delivery O2 Flow Rate FiO2 04/20/20 20:57 20 99 EKG: EKG: [] Radiology/Procedures: Radiology/Procedures: PROCEDURE: CT ABDOMEN PELVIS WO CONTRAST CT ABDOMEN PELVIS WO CONTRAST INDICATION: Reason: RLQ abdominal pain, eval for acute appy / Spl. Instructions: / History: EXAM: Noncontrast CT of the abdomen and pelvis. Coronal and sagittal reformatted images were performed. PQRS compliance statement: One or more of the following individualized dose reduction techniques were utilized for this examination: 1. Automated exposure control 2. Adjustment of the mA and/or kV according to patient size 3. Use of iterative reconstruction technique COMPARISON: None FINDINGS: No free air, free fluid, or fluid collection. Percutaneous catheter coiled in the right lower quadrant. Lower chest: The visualized lower lungs are aerated. No pleural or pericardial effusion. Cardiomegaly. Coronary artery atherosclerotic disease. ABDOMEN: Liver: The noncontrast liver is homogeneous in attenuation. Gallbladder and biliary: Cholecystectomy. Normal caliber bile ducts. Spleen: Normal spleen. Pancreas: The noncontrast pancreas is homogeneous in attenuation without peripancreatic inflammatory changes. Adrenal glands: Normal adrenal glands. Kidneys and ureters: No opaque urinary calculi. No hydronephrosis. Symmetric perinephric stranding. GI tract: The stomach is decompressed and poorly evaluated. Normal caliber small bowel and colon. Normal appendix. Vascular structures: Normal caliber abdominal aorta. Moderate aortoiliac atherosclerotic disease. Lymph nodes: No lymphadenopathy in the abdomen or pelvis. PELVIS: Genitourinary system: Normal bladder. SKELETAL STRUCTURES AND SOFT TISSUES: Degenerative changes of the spine IMPRESSION: No acute findings. Normal caliber bowel. Normal appendix. Electronically signed by: eSan Blancas MD (04/20/2020 9:00 PM) [id number] Course & Med Decision Making: Course & Med Decision Making Pertinent Labs and Imaging studies reviewed. (See chart for details) Patient presents with report of abdominal pain with associated nausea and vomiting. History of end-stage renal disease on hemodialysis. Reports history of having peritoneal dialysis catheter placed but is yet to use it. Symptomatic treatment provided. Labs obtained and posted to chart. CT abdomen/pelvis without acute process. Notation that and of dialysis catheter ends in right lower quadrant. Potential catheter may be irritating area causing some discomfort. Patient stable for discharge with outpatient follow-up with PCP. Discussed findings and plan with patient, who acknowledges understanding and agreement. Neelima Disclaimer: Neelima Disclaimer: This electronic medical record was generated, in whole or in part, using a voice recognition dictation system. Departure Departure Impression: Primary Impression: Abdominal pain Qualified Codes: R10.31 - Right lower quadrant pain Additional Impression: Nausea & vomiting Qualified Codes: R11.2 - Nausea with vomiting, unspecified Disposition: 01 HOME, SELF-CARE Condition: IMPROVED Referrals: NO PCP (PCP) Patient Instructions: Abdominal Pain (Nonspecific), Nausea and Vomiting, [id number] Scripts Ondansetron (ONDANSETRON ODT) 4 Mg Tab.rapdis 1 TAB PO PRN Q6-8HRS PRN for NAUSEA, #16 TAB Prov: MOLINA ART DO 04/20/20 Justicifation of Admission Dx: Justifications for Admission: Justification of Admission Dx: N/A MOLINA ART DO Apr 20, 2020 21:25
[2020-04-20] MEDS ORDERED: ONDA4TAB12 PO (21:37)
[2020-04-20 22:30] VITALS: BP 167/76
== END 2020-04-20 22:37 | disposition home or self-care (01) ==
LOC: ER 20:11
DX: R10.31 Right lower quadrant pain (principal); R11.2 Nausea with vomiting, unspecified; E11.22 Type 2 diabetes mellitus with diabetic chronic kidney disease; I13.0 Hypertensive heart and chronic kidney disease with heart failure and stage 1 through stage 4 chronic kidney disease, or unspecified chronic kidney disease; N18.9 Chronic kidney disease, unspecified; I50.9 Heart failure, unspecified; E78.00 Pure hypercholesterolemia, unspecified; F17.200 Nicotine dependence, unspecified, uncomplicated; I25.10 Atherosclerotic heart disease of native coronary artery without angina pectoris; I25.2 Old myocardial infarction; G89.29 Other chronic pain; Z90.49 Acquired absence of other specified parts of digestive tract; Z95.1 Presence of aortocoronary bypass graft; Z98.890 Other specified postprocedural states; Z99.2 Dependence on renal dialysis; Z88.5 Allergy status to narcotic agent
CPT/HCPCS: 36415; 74176; 80053; 80164; 81001; 83605; 83690; 83735; 85025; 85610; 85730; 96374; 96375; 96376; 99284; J2405; J3010; J3490

== ENCOUNTER 2020-04-27 15:52 | Inpatient (IN) | payer MEDICARE, OTHER ==
[~2020-04-27] VITALS: Ht 190.5 cm; Wt 106.5 kg
[~2020-04-27 15:52] MED LIST changes: +ONDA4TAB12 PO
[2020-04-27] MEDS ORDERED: ASPIRIN 325 MG TABLET PO ONE (16:15)
--- NOTE | 2020-04-27 16:23 | PHYS DOC ---
Past Medical History Past Medical History: Anxiety, CAD, CHF, Diabetes-Type II, High Cholesterol, Heart Disease, Hypertension, [place], Renal Disease, Renal Failure, Seizure Additional Past Medical Histor: dialysis, pt denies lung ca; chronic back pain (JERSON WILLIAMSON APRN) Past Surgical History: Cholecystectomy, Coronary Bypass Surgery Additional Past Surgical Histo: patient also had peritoneal diaylysis cath placed 04/04/20 (JERSON WILLIAMSON APRN) Smoking Status: Current Every Day Smoker Alcohol Use: Occasionally Drug Use: None (JERSON WILLIAMSON APRN) General Adult EDM: Chief Complaint: CHEST PAIN HPI: HPI: Patient is a 54 year old male who presents with 4 days of left-sided squeezing type chest pain that radiates to the back. He states he also has some shortness of breath with a cough also. He also complains of distended abdomen and nausea and abdominal pain that is in the upper quadrants. Patient recently had a peritoneal dialysis port placed on April 04, 2020. Patient states he gets h emodialysis Tuesdays, , and if after peritoneal dialysis he has extra fluid then he will get hemodialysis on Tuesday too. He states that he usually takes Percocets but he did not take any today. He states the Percocet will cause him constipation. He states that he did have a bowel movement this morning it was normal for him. Patient rates his pain a 10 out of 10. States that he did not take any aspirin today. Patient has history of seizures, altered mental status, CHF, end-stage renal disease, CAD, [place], diabetes type 2, smoker, hypertension, high cholesterol, renal failure. Patient did have a negative COVID-19 on March 12, 2020. Denies fever, vomiting, diarrhea, dizziness, syncope, headache, vision changes, focal weakness, numbness or tingling, (JERSON WILLIAMSON RAILROAD ENGINEER) Review of Systems: Review of Systems: Constitutional: Denies fever or chills. [] Eyes: Denies change in visual acuity. [] HENT: Denies nasal congestion or sore throat. [] Respiratory: cough or shortness of breath. [] Cardiovascular: chest pain or denies edema. [] GI: abdominal pain, nausea, denies vomiting, bloody stools or diarrhea. [] : Denies dysuria. [] Musculoskeletal: Denies back pain or joint pain. [] Integument: Denies rash. [] Neurologic: Denies headache, focal weakness or sensory changes. [] Endocrine: Denies polyuria or polydipsia. [] Lymphatic: Denies swollen glands. [] Psychiatric: Denies depression or anxiety. [] [facility]) Heart Score: HEART Score for Chest Pain: HEART Score for Chest Pain Response (Comments) Value History Moderately Suspicious 1 ECG Nonspecific Repolarizatio 1 Age >45 - < 65 1 Risk Factors >3 Risk Factors or Hx CAD 2 Troponin < Normal Limit 0 Total 5 Risk Factors: Risk Factors: DM, Current or recent (<one month) smoker, HTN, HLP, family history of CAD, obesity. Risk Scores: Score 0 - 3: 2.5% MACE over next 6 weeks - Discharge Home Score 4 - 6: 20.3% MACE over next 6 weeks - Admit for Clinical Observation Score 7 - 10: 72.7% MACE over next 6 weeks - Early Invasive Strategies ([facility]) Allergies: Allergies: Allergies Coded Allergies Type Severity Reaction Last Updated Verified hydromorphone Allergy Severe Anaphylaxis 04/04/20 Yes [facility] RAILROAD ENGINEER) Physical Exam: PE: Constitutional: Well developed, well nourished, no acute distress, non-toxic appearance. [] HENT: Normocephalic, atraumatic, bilateral external ears normal, oropharynx moist, no oral exudates, nose normal. [] Eyes: PERRLA, EOMI, conjunctiva normal, no discharge. [] Neck: Normal range of motion, no tenderness, supple, no stridor. [] Cardiovascular:Heart rate regular rhythm, no murmur [] Lungs & Thorax: Bilateral upper breath sounds clear and lower diminished to auscultation [] Abdomen: Bowel sounds normal, tight, distended, bilateral upper tenderness, no masses, no pulsatile masses. [] Skin: Warm, dry, no erythema, no rash. [] Back: No tenderness, no CVA tenderness. [] Extremities: No tenderness, no cyanosis, no clubbing, ROM intact, no edema. [] Neurologic: Alert and oriented X 3, normal motor function, normal sensory function, no focal deficits noted. [] Psychologic: Affect normal, judgement normal, mood normal. [] (JERSON WILLIAMSON APRN) EKG: EK and read by Dr Taylor as Sinus Rhythm and no STEMI[] (JERSON WILLIAMSON APRN) Radiology/Procedures: Radiology/Procedures: [] Impression: [place] [address] IMAGING REPORT Signed PATIENT: JULIAN GARCÍA ACCOUNT: [id number] : 1965 LOCATION: ER AGE: 54 SEX: M EXAM STATUS: PRE ER ORD. PHYSICIAN: JERSON WILLIAMSON APRN REASON: chest pain PROCEDURE: PORTABLE CHEST 1V Exam: Chest one view INDICATION: Chest pain TECHNIQUE: Frontal view of the chest Comparisons: 03/11/2020 FINDINGS: Sternotomy wires are noted. The cardiomediastinal silhouette and pulmonary vessels are within normal limits. Strandy opacities at the left lung base. No pleural effusion. IMPRESSION: Left basilar atelectasis. Electronically signed by: Bautista Kelly MD (04/27/2020 4:39 PM) [id number] DICTATED and SIGNED BY: BAUTISTA KELLY MD DATE: 04/27/[address] [id number] IMAGING REPORT Signed PATIENT: JULIAN GARCÍA ACCOUNT: [id number] : 1965 LOCATION: ER AGE: 54 SEX: M EXAM STATUS: REG ER ORD. PHYSICIAN: JERSON WILLIAMSON APRN REASON: pain, nausea, distended PROCEDURE: CT ABDOMEN PELVIS WO CONTRAST Abdominal and Pelvis CT, Without Contrast: History: Reason: pain, nausea, distended / Spl. Instructions: / History: Comparison: April 20, 2020. Procedure: Axial images are obtained of the abdomen and pelvis, without IV or oral contrast. Oral Contrast: No Findings: Evaluation of solid organs is limited without contrast. The appendix is not well seen however there is a small tubular structure posterior to the cecum which could be a normal appendix. There is a percutaneous catheter coiled in the right hemipelvis anteriorly which was seen previous and is presumably for hemodialysis. There is mild free fluid in the pelvis. Linear opacities in the left lung base are seen previously could be discoid atelectasis or scar. There is beam Mendieta artifact due to hardware from prior repair of a right hip fracture. Liver: Normal. Spleen: Normal. Pancreas: Normal. Adrenal Glands: Normal. Kidneys: Normal. There is no free air or free fluid. There is no lymphadenopathy. The urinary bladder is partially collapsed. Apparent mild wall thickening could be secondary to hypertrophy. There is no pericolonic inflammation identified. Impression: Mild free fluid the pelvis could be secondary to peritoneal dialysis. Otherwise no acute findings. End impression PQRS Compliance Statement: One or more of the following individualized dose reduction techniques were utilized for this examination: 1. Automated exposure control 2. Adjustment of the mA and/or kV according to patient size 3. Use of iterative reconstruction technique Electronically signed by: John Stewart III, MD (04/27/2020 4:50 PM) [id number] DICTATED and SIGNED BY: JOHN STEWART III, MD DATE: 04/27/201649 (JERSON WILLIAMSON APRN) Course & Med Decision Making: Course & Med Decision Making Pertinent Labs and Imaging studies reviewed. (See chart for details) Patient's EKG shows sinus rhythm and no STEMI. He is alert and oriented and speaks in full complete sentences. Skin pink warm and dry. Ambulatory with a cane. Cannot do blood pressure is on bilateral arms due to fistula in left arm. Abdomen is distended tight and tender to upper quadrants bilaterally. No extremity edema. Patient usually wears 2 to 4 L of oxygen at home. Patient does state that he has had a cough but he denies any kind of fever. Patient's lipase has jumped to 1585 and BNP has jumped to19,087. Patient is admitted for chest pain. Patient admitted to Dr. Yoder. [] (JERSON WILLIAMSON APRN) eDrianon Disclaimer: Neelima Disclaimer: This electronic medical record was generated, in whole or in part, using a voice recognition dictation system. (JERSON WILLIAMSON APRN) Departure Departure Impression: Primary Impression: Chest pain Qualified Codes: R07.9 - Chest pain, unspecified Disposition: 09 ADMITTED INPATIENT Admitting Physician: ADAN (JERSON WILLIAMSON APRN) Condition: STABLE Referrals: NO PCP (PCP) Justicifation of Admission Dx: Justifications for Admission: Justification of Admission Dx: Yes Comments: chest pain (JERSON WILLIAMSON APRN) Attending Signature Attending Signature I have participated in the care of this patient and I have reviewed and agree with all pertinent clinical information above including history, exam, and recommendations. (KENDRA TAYLOR DO) JERSON WILLIAMSON APRN Apr 27, 2020 16:23 KENDRA TAYLOR DO Apr 27, 2020 17:58
[2020-04-27 16:32] LABS: BASO # 0.1 x10^3/uL (0.0-0.2); BASO % 1 % (0-3); EOS # 0.3 x10^3/uL (0.0-0.7); EOS % 3 % (0-3); HEMATOCRIT 34.3 % (39.0-53.0); HEMOGLOBIN 11.6 g/dL (13.0-17.5); LYMPH # 1.7 x10^3/uL (1.0-4.8); LYMPH % 15 % (24-48); MEAN CORPUSCULAR HEMOGLOBIN 32 pg (25-35); MEAN CORPUSCULAR HGB CONC 34 g/dL (31-37); MEAN CORPUSCULAR VOLUME 95 fL (79-100); MONO # 1.2 x10^3/uL (0.0-1.1); MONO % 10 % (0-9); NEUT % 71 % (31-73); PLATELET COUNT 257 x10^3/uL (140-400); RED CELL DISTRIBUTION WIDTH 13.5 % (11.5-14.5); WHITE BLOOD COUNT 11.3 x10^3/uL (4.0-11.0)
[2020-04-27 16:41] LABS: PROTHROMBIN TIME PATIENT 12.2 SEC (11.7-14.0)
[2020-04-27 16:42] LABS: CALCIUM 8.2 mg/dL (8.5-10.1); CREATININE 6.7 mg/dL (0.7-1.3); GFR 8.7; POTASSIUM 4.9 mmol/L (3.5-5.1)
--- NOTE | 2020-04-27 16:42 | RAD ---
Exam: Chest one view INDICATION: Chest pain TECHNIQUE: Frontal view of the chest Comparisons: 03/11/2020 FINDINGS: Sternotomy wires are noted. The cardiomediastinal silhouette and pulmonary vessels are within normal limits. Strandy opacities at the left lung base. No pleural effusion. IMPRESSION: Left basilar atelectasis. Electronically signed by: Bautista Montes MD (04/27/2020 4:39 PM) [id number]
[2020-04-27 16:49] LABS: ALBUMIN/GLOBULIN RATIO 0.7 (1.0-1.7); TOTAL BILIRUBIN 0.3 mg/dL (0.2-1.0); TOTAL PROTEIN 7.1 g/dL (6.4-8.2)
--- NOTE | 2020-04-27 16:53 | RAD ---
Abdominal and Pelvis CT, Without Contrast: History: Reason: pain, nausea, distended / Spl. Instructions: / History: Comparison: April 20, 2020. Procedure: Axial images are obtained of the abdomen and pelvis, without IV or oral contrast. Oral Contrast: No Findings: Evaluation of solid organs is limited without contrast. The appendix is not well seen however there is a small tubular structure posterior to the cecum which could be a normal appendix. There is a percutaneous catheter coiled in the right hemipelvis anteriorly which was seen previous and is presumably for hemodialysis. There is mild free fluid in the pelvis. Linear opacities in the left lung base are seen previously could be discoid atelectasis or scar. There is beam Mendieta artifact due to hardware from prior repair of a right hip fracture. Liver: Normal. Spleen: Normal. Pancreas: Normal. Adrenal Glands: Normal. Kidneys: Normal. There is no free air or free fluid. There is no lymphadenopathy. The urinary bladder is partially collapsed. Apparent mild wall thickening could be secondary to hypertrophy. There is no pericolonic inflammation identified. Impression: Mild free fluid the pelvis could be secondary to peritoneal dialysis. Otherwise no acute findings. End impression PQRS Compliance Statement: One or more of the following individualized dose reduction techniques were utilized for this examination: 1. Automated exposure control 2. Adjustment of the mA and/or kV according to patient size 3. Use of iterative reconstruction technique Electronically signed by: Santiago Troy III, MD (04/27/2020 4:50 PM) [id number]
[2020-04-27] MEDS ORDERED: fentaNYL PF VIAL 100 MCG/2 ML VIAL IVP ONE (17:00)
--- NOTE | 2020-04-27 17:41 | PDOC1 ---
History and Physical Date of Admission Date of Admission DATE: 04/27/20 TIME: 17:38 Identification/Chief Complaint Chief Complaint Chest pain Source Source: Patient History of Present Illness History of Present Illness Mr Bedolla 54 yo M w/ PMHx smoker, CAD, ischemic CM, ESRD on HD, BP disorder, seizure disorder, DM2, HTN who presents with epigastric chest pain radiating to his back since the past 4 days. Notes band-like squeezing chest pain that radiates to the back. He states he also has some shortness of breath with a cough also. He also complains of distended abdomen and nausea and abdominal pain that is in the bilateral upper quadrants. He is s/p PD cath placement 04/04/2020 with no signs of peritonitis. 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 He rates his pain a 10 out of 10. He has been feeling pain after eating so has not eaten today or taken any meds, including his pain medications. Negative COVID-19 on March 12, 2020. Denies fever, vomiting, diarrhea, dizziness, syncope, headache, vision changes, focal weakness, numbness or tingling and no recent travel or sick contacts. He relates to me he was on hospice until 3 months ago. Weight up 20kg from dry weight of 110kg. Cardiac workup negative in ED. cxr concerning for Left basilar atelectasis. CT abdomen with pelvic fluid and PD catheter. Labs: WBC 11.3, Hb 11.6, Platelets 267, Na 134, K 4.9, BUN 53, Cr 6.7, Glucose 256, BNP 46339, AST 20, ALT 24, Alk phos 182, Lipase 1535, albumin 3. normal trop. normal INR 0.9, lactate 1. Admitted for further treatment Past Medical History Cardiovascular: CAD, CHF, HTN, Hyperlipidemia, Other Pulmonary: Bronchitis, Pulmonary embolus, Pneumonia, Other CENTRAL NERVOUS SYSTEM: CVA, Periperal neuropathy, Other GI: GERD, Other Heme/Onc: Cancer Psych: Depression Renal/: Chronic renal failure Endocrine: Diabetes, Hyperparathyroidism Past Surgical History Past Surgical History: Cholecystectomy, CABG, Tonsillectomy, Other Family History Family History: Kidney Disease Social History Smoke: <1 pack per day ALCOHOL: none Drugs: Cocaine Current Medications Current Medications Current Medications Aspirin (Katie Aspirin) 325 mg 1X ONCE PO Last administered on 04/27/20at 16:48 ; Start 04/27/20 at 16:15; Stop 04/27/20 at 16:16; Status DC Fentanyl Citrate (Fentanyl 2ml Vial) 50 mcg 1X ONCE IVP Last administered on 04/27/20at 16:55; Start 04/27/20 at 17:00; Stop 04/27/20 at 17:01; Status DC Active Scripts Active Ondansetron Odt (Ondansetron) 4 Mg Tab.rapdis 1 Tab PO PRN Q6-8HRS PRN Percocet 10-325 Mg Tablet (Oxycodone/Acetaminophen) 1 Each Tablet 1 Tab PO PRN BID PRN MDD 2 Tablet(s) 5 Days [Diclofenac Sodium] 100 GM Gel..gram. 1 Christo TP BID 30 Days Reported Renal-Irvin Tablet (Folic Acid/Vit Bcomp,C) 0.8 Mg Tablet 0.8 Mg PO DAILY Novolog (Insulin Aspart) 100 Unit/1 Ml Vial 0 SQ PRN TID PRN Ibuprofen 600 Mg Tablet 600 Mg PO PRN Q12HR PRN Diphenhydramine Hcl 25 Mg Tablet 25 Mg PO QHS Furosemide 80 Mg Tablet 120 Mg PO BID Tresiba (Insulin Degludec) 100 Unit/1 Ml Vial 42 Unit SQ DAILY Ativan (Lorazepam) 1 Mg Tablet 0.5 Mg PO Q4HRS Percocet 10-325 Mg Tablet (Oxycodone/Acetaminophen) 1 Each Tablet 1 Tab PO BID Buspirone Hcl 5 Mg Tablet 5 Mg PO BID Lisinopril 20 Mg Tablet 20 Mg PO DAILY Zofran (Ondansetron Hcl) 4 Mg Tablet 1 Tab PO PRN Q4HRS PRN NITROGLYCERIN SubLingual (Nitroglycerin) 0.4 Mg Tab.subl 0.4 Mg SL PRN Q5MIN PRN Hydralazine Hcl 25 Mg Tablet 1 Tab PO BID Gabapentin 400 Mg Capsule 400 Mg PO BID Citalopram Hbr (Citalopram Hydrobromide) 40 Mg Tablet 40 Mg PO HS Cyclobenzaprine Hcl 10 Mg Tablet 1 Tab PO TID PRN PRN Ranexa (Ranolazine) 1,000 Mg Tab.er.12h 0.5 Tab PO BID Seroquel (Quetiapine Fumarate) 100 Mg Tablet 1 Tab PO QHS Protonix (Pantoprazole Sodium) 20 Mg Tablet.dr 40 Mg PO DAILY Docusate Sodium 100 Mg Capsule 1 Cap PO DAILY Divalproex Sodium 500 Mg Tablet.dr 2 Tab PO BID Aspirin 81 Mg Tab.chew 1 Tab PO DAILY Amitiza (Lubiprostone) 24 Mcg Capsule 1 Cap PO DAILY Norvasc (Amlodipine Besylate) 10 Mg Tablet 10 Mg PO DAILY Coreg (Carvedilol) 25 Mg Tablet 12.5 Mg PO BIDWMEALS Metolazone 5 Mg Tablet 5 Mg PO DAILY Renvela (Sevelamer Carbonate) 800 Mg Tablet 800 Mg PO TIDWMEALS Trazodone Hcl 300 Mg Tablet 150 Mg PO HS Allergies Allergies: Coded Allergies: hydromorphone (Verified Allergy, Severe, Anaphylaxis, 04/04/20) morphine ok ROS General: YES: Fatigue, Malaise, Appetite; No: Chills, Night Sweats, Other PSYCHOLOGICAL ROS: YES: Anxiety; No: Behavioral Disorder, Concentration difficultie, Decreased libido, Depression, Disorientation, Hallucinations, Hostility, Irritablity, Memory difficulties, Mood Swings, Obsessive thoughts, Physical abuse, Sexual abuse, Sleep disturbances, Suicidal ideation, Other Eyes: No Blurry vision, No Decreased vision, No Double vision, No Dry eyes, No Excessive tearing, No Eye Pain, No Itchy Eyes, No Loss of vision, No Photophobia, No Scotomata, No Uses contacts, No Uses glasses, No Other HEENT: No: Heacaches, Visual Changes, Hearing change, Nasal congestion, Nasal discharge, Oral lesions, Sinus pain, Sore Throat, Epistaxis, Sneezing, Snoring, Tinnitus, Vertigo, Vocal changes, Other ALLERGY AND IMMUNOLOGY: No: Hives, Insect Bite Sensitivity, Itchy/Watery Eyes, Nasal Congestion, Post Nasal Drip, Seasonal Allergies, Other Hematological and Lymphatic: No: Bleeding Problems, Blood Clots, Blood Transfusions, Brusing, Night Sweats, Pallor, Swollen Lymph Nodes, Other ENDOCRINE: No: Breast Changes, Galactorrhea, Hair Pattern Changes, Hot Flashes, Malaise/lethargy, Mood Swings, Palpitations, Polydipsia/polyuria, Skin Changes, Temperature Intolerance, Unexpected Weight Changes, Other Breast: No New/Changing Breast Lumps, No Nipple changes, No Nipple discharge, No Other Respiratory: YES: Cough, Shortness of breath, SOB with excertion; No: Hemoptysis, Orthopnea, Pleuritic Pain, Sputum Changes, Stridor, Tachypnea, Wheezing, Other Cardiovascular: yes Chest Pain; No Palpitations, No Orthopnea, No Paroxysmal Noc. Dyspnea, No Edema, No Lt Headedness, No Other Gastrointestinal: Yes Nausea, Yes Abdominal Pain, Yes Constipation; No Vomiting, No Diarrhea, No Melena, No Hematochezia, No Other Genitourinary: No Dysuria, No Frequency, No Incontinence, No Hematuria, No Retention, No Discharge, No Urgency, No Pain, No Flank Pain, No Other, No , No , No , No , No , No , No Musculoskeletal: No Gait Disturbance, No Joint Pain, No Joint Stiffness, No Joint Swelling, No Muscle Pain, No Muscular Weakness, No Pain In:, No Swelling In:, No Other Neurological: No Behavorial Changes, No Bowel/Bladder ControlChng, No Confusion, No Dizziness, No Gait Disturbance, No Headaches, No Impaired Coord/balance, No Memory Loss, No Numbness/Tingling, No Seizures, No Speech Problems, No Tremors, No Visual Changes, No Weakness, No Other Skin: No Dry Skin, No Eczema, No Hair Changes, No Lumps, No Mole Changes, No Mottling, No Nail Changes, No Pruritus, No Rash, No Skin Lesion Changes, No Other, No Acne Physical Exam General: Alert, Oriented X3, Cooperative, moderate distress HEENT: Atraumatic, PERRLA, EOMI, Mucous membr. moist/pink Lungs: Clear to auscultation, Normal air movement Heart: S1S2, RRR, no thrills, no rubs, no gallops, no murmurs Abdomen: Normal bowel sounds, Soft, No hepatosplenomegaly, No masses, Other (bilateral upper quadrant and epigastric tenderness. PD catheter clean dry, intact.) Rectal Exam: not examined Extremities: No clubbing, No cyanosis, No edema, Normal pulses, No tenderness/swelling Skin: No rashes, No breakdown, No significant lesion Neuro: Normal gait, Normal speech, Strength at 5/5 X4 ext, Normal tone, Sensation intact, Cranial nerves 3-12 NL, Reflexes 2+ Psych/Mental Status: Mental status NL, Mood NL Vitals Vitals Vital Signs Date Time Temp Pulse Resp B/P (MAP) Pulse Ox O2 Delivery O2 Flow Rate FiO2 04/27/20 16:00 99.0 76 16 197/76 (116) 99 Room Air 99.0 Labs Labs Laboratory Tests Test 04/27/20 16:20 White Blood Count 11.3 x10^3/uL (4.0-11.0) Red Blood Count 3.60 x10^6/uL (4.30-5.70) Hemoglobin 11.6 g/dL (13.0-17.5) Hematocrit 34.3 % (39.0-53.0) Mean Corpuscular Volume 95 fL (79-100) Mean Corpuscular Hemoglobin 32 pg (25-35) Mean Corpuscular Hemoglobin Concent 34 g/dL (31-37) Red Cell Distribution Width 13.5 % (11.5-14.5) Platelet Count 257 x10^3/uL (140-400) Neutrophils (%) (Auto) 71 % (31-73) Lymphocytes (%) (Auto) 15 % (24-48) Monocytes (%) (Auto) 10 % (0-9) Eosinophils (%) (Auto) 3 % (0-3) Basophils (%) (Auto) 1 % (0-3) Neutrophils # (Auto) 8.0 x10^3/uL (1.8-7.7) Lymphocytes # (Auto) 1.7 x10^3/uL (1.0-4.8) Monocytes # (Auto) 1.2 x10^3/uL (0.0-1.1) Eosinophils # (Auto) 0.3 x10^3/uL (0.0-0.7) Basophils # (Auto) 0.1 x10^3/uL (0.0-0.2) Prothrombin Time 12.2 SEC (11.7-14.0) Prothromb Time International Ratio 0.9 (0.8-1.1) Sodium Level 134 mmol/L (136-145) Potassium Level 4.9 mmol/L (3.5-5.1) Chloride Level 98 mmol/L (98-107) Carbon Dioxide Level 28 mmol/L (21-32) Anion Gap 8 (6-14) Blood Urea Nitrogen 53 mg/dL (8-26) Creatinine 6.7 mg/dL (0.7-1.3) Estimated GFR (Cockcroft-Gault) 8.7 BUN/Creatinine Ratio 8 (6-20) Glucose Level 256 mg/dL (70-99) Calcium Level 8.2 mg/dL (8.5-10.1) Total Bilirubin 0.3 mg/dL (0.2-1.0) Aspartate Amino Transf (AST/SGOT) 20 U/L (15-37) Alanine Aminotransferase (ALT/SGPT) 24 U/L (16-63) Alkaline Phosphatase 182 U/L (46-116) Troponin I Quantitative < 0.017 ng/mL (0.000-0.055) PJ-Wep-N-Type Natriuretic Peptide 46564 pg/mL (0-124) Total Protein 7.1 g/dL (6.4-8.2) Albumin 3.0 g/dL (3.4-5.0) Albumin/Globulin Ratio 0.7 (1.0-1.7) Lipase 1535 U/L (73-393) Laboratory Tests Test 04/27/20 16:20 White Blood Count 11.3 x10^3/uL (4.0-11.0) Red Blood Count 3.60 x10^6/uL (4.30-5.70) Hemoglobin 11.6 g/dL (13.0-17.5) Hematocrit 34.3 % (39.0-53.0) Mean Corpuscular Volume 95 fL (79-100) Mean Corpuscular Hemoglobin 32 pg (25-35) Mean Corpuscular Hemoglobin Concent 34 g/dL (31-37) Red Cell Distribution Width 13.5 % (11.5-14.5) Platelet Count 257 x10^3/uL (140-400) Neutrophils (%) (Auto) 71 % (31-73) Lymphocytes (%) (Auto) 15 % (24-48) Monocytes (%) (Auto) 10 % (0-9) Eosinophils (%) (Auto) 3 % (0-3) Basophils (%) (Auto) 1 % (0-3) Neutrophils # (Auto) 8.0 x10^3/uL (1.8-7.7) Lymphocytes # (Auto) 1.7 x10^3/uL (1.0-4.8) Monocytes # (Auto) 1.2 x10^3/uL (0.0-1.1) Eosinophils # (Auto) 0.3 x10^3/uL (0.0-0.7) Basophils # (Auto) 0.1 x10^3/uL (0.0-0.2) Prothrombin Time 12.2 SEC (11.7-14.0) Prothromb Time International Ratio 0.9 (0.8-1.1) Sodium Level 134 mmol/L (136-145) Potassium Level 4.9 mmol/L (3.5-5.1) Chloride Level 98 mmol/L (98-107) Carbon Dioxide Level 28 mmol/L (21-32) Anion Gap 8 (6-14) Blood Urea Nitrogen 53 mg/dL (8-26) Creatinine 6.7 mg/dL (0.7-1.3) Estimated GFR (Cockcroft-Gault) 8.7 BUN/Creatinine Ratio 8 (6-20) Glucose Level 256 mg/dL (70-99) Calcium Level 8.2 mg/dL (8.5-10.1) Total Bilirubin 0.3 mg/dL (0.2-1.0) Aspartate Amino Transf (AST/SGOT) 20 U/L (15-37) Alanine Aminotransferase (ALT/SGPT) 24 U/L (16-63) Alkaline Phosphatase 182 U/L (46-116) Troponin I Quantitative < 0.017 ng/mL (0.000-0.055) YO-Dwe-S-Type Natriuretic Peptide 14548 pg/mL (0-124) Total Protein 7.1 g/dL (6.4-8.2) Albumin 3.0 g/dL (3.4-5.0) Albumin/Globulin Ratio 0.7 (1.0-1.7) Lipase 1535 U/L (73-393) Images Images CXR: Sternotomy wires are noted. The cardiomediastinal silhouette and pulmonary vessels are within normal limits. Strandy opacities at the left lung base. No pleural effusion. IMPRESSION: Left basilar atelectasis. VTE Prophylaxis Ordered VTE Prophylaxis Devices: No VTE Pharmacological Prophylaxi: Yes Assessment/Plan Assessment/Plan A/P: Atypical CP - neg trop and negative EKG. Likely costochondritis and possibly pancreatitis, but with his cardiac history and largely elevated BNP, will consult cardiology Elevated lipase - with his symptoms it is unclear if this is pancreatitis, no remarks on CT abdomen, though it was a non-contrast study. S/p ciaran, has elevated alk phos, will consult GI for recs CAD s/p CABG. Cath 2016 with patent grafts HTN - will cont meds BP disorder - on seroquel Seizures - on depakote Acute on chronic diastolic CHF; Echo 07/19 with preserved LV systolic function - will diurese, still makes some urine, likely gained weight 2/2 starting PD, will need UF Hyperlipidemia - cont statin Diabetes, II--insulin dependent - will cont 42u glargine and sliding scale ESRD on HD - transitioning to PD, will consult nephrology Large weight gain - dry weight previously 110kg, now 130kg, possibly related to new PD status, will consult nephrology for further recs. FEN - Renal ADA PPX - heparin FULL CODE Dispo - inpatient for 2 midnights Justicifation of Admission Dx: Justifications for Admission: Justification of Admission Dx: Yes GALI ROMERO MD Apr 27, 2020 17:41
[2020-04-27] MEDS ORDERED: ONDANSETRON PF 4 MG/2 ML VIAL. IV PRN ×2 (18:00→20:30)
[2020-04-27] MEDS: fentaNYL PF VIAL 100 MCG/2 ML VIAL IV PRN ×2 (18:31→19:36)
[2020-04-27 20:00] VITALS: BP 171/96
[2020-04-27] MEDS ORDERED: ONDANSETRON ODT 4 MG TAB.RAPDIS. PO PRN ×2 (20:30→21:00)
[2020-04-27] MEDS ORDERED: DEXTROSE 50% 25 GM / 50ML DISP.SYRIN. IV PRN (20:30)
[2020-04-27] MEDS ORDERED: NITROGLYCERIN SUBLINGUAL 0.4 MG BOTTLE OF 25. SL PRN (20:30)
[2020-04-27] MEDS ORDERED: LACTULOSE 20 GM/30 ML SOLUTION. PO PRN (21:00)
[2020-04-27] MEDS ORDERED: INSULIN DEGLUDEC 42 UNIT SQ SCH (21:00)
[2020-04-27] MEDS ORDERED: BISACODYL 10 MG SUPP.RECT. PR PRN (21:00)
[2020-04-27] MEDS: POLYETHYLENE GLYCOL 3350 17 GM PACKET. PO SCH (21:00)
[2020-04-27] MEDS: oxyCODONE/APAP 10/325 1 TAB TABLET PO PRN (21:06)
[2020-04-27] MEDS: traZODone 50 MG TABLET. PO SCH (21:06)
[2020-04-27] MEDS: diphenhydrAMINE HCL 25 MG CAPSULE PO SCH (21:07)
[2020-04-27] MEDS: hydrALAZINE 25 MG TABLET PO SCH (21:07)
[2020-04-27] MEDS: DIVALPROEX DELAYED RELEASE 500 MG TABLET.DR. PO SCH (21:07)
[2020-04-27] MEDS: QUEtiapine 100 MG TABLET. PO SCH (21:07)
[2020-04-27] MEDS: DICLOFENAC SODIUM 1% TOPICAL GEL 100GM TUBE. TP SCH (21:14)
[2020-04-27] MEDS: INSULIN LISPRO 300 UNITS/3 ML VIAL. SQ SCH (21:15)
[2020-04-27] MEDS: PSYLLIUM HUSK (SUGAR FREE) 1 PKT PACKET PO SCH (21:15)
[2020-04-27 21:45] VITALS: BP 187/87
[2020-04-27] MEDS ORDERED: fentaNYL PF VIAL 100 MCG/2 ML VIAL IVP PRN (22:30)
[2020-04-27] MEDS: busPIRone 5 MG TABLET. PO SCH (22:45)
[2020-04-27] MEDS: CITALOPRAM 20 MG TABLET. PO SCH (22:45)
[2020-04-27] MEDS: RANOLAZINE 500 MG TAB.ER.12H PO SCH (22:45)
[2020-04-27 22:50] VITALS: BP 166/74
[2020-04-27] MEDS: INSULIN GLARGINE SYRINGE. SQ SCH (22:54)
[2020-04-27] MEDS: HEPARIN for SUB-Q USE 5,000 UNIT/ML VIAL. SQ SCH (22:57)
[2020-04-28 02:54] LABS: BASO % 0 % (0-3); EOS # 0.3 x10^3/uL (0.0-0.7); EOS % 3 % (0-3); HEMATOCRIT 30.1 % (39.0-53.0); HEMOGLOBIN 10.4 g/dL (13.0-17.5); LYMPH # 2.5 x10^3/uL (1.0-4.8); LYMPH % 26 % (24-48); MEAN CORPUSCULAR HEMOGLOBIN 33 pg (25-35); MEAN CORPUSCULAR HGB CONC 35 g/dL (31-37); MEAN CORPUSCULAR VOLUME 95 fL (79-100); MONO % 10 % (0-9); NEUT # 5.8 x10^3/uL (1.8-7.7); NEUT % 60 % (31-73); PLATELET COUNT 212 x10^3/uL (140-400); RED BLOOD COUNT 3.18 x10^6/uL (4.30-5.70); RED CELL DISTRIBUTION WIDTH 13.6 % (11.5-14.5); WHITE BLOOD COUNT 9.6 x10^3/uL (4.0-11.0)
[2020-04-28 03:32] LABS: ALBUMIN 2.6 g/dL (3.4-5.0); ALBUMIN/GLOBULIN RATIO 0.9 (1.0-1.7); CALCIUM 7.9 mg/dL (8.5-10.1); TOTAL PROTEIN 5.6 g/dL (6.4-8.2)
[2020-04-28 03:33] LABS: GFR 8.3; PHOSPHORUS 5.9 mg/dL (2.6-4.7); POTASSIUM 4.5 mmol/L (3.5-5.1); TOTAL BILIRUBIN 0.3 mg/dL (0.2-1.0)
[2020-04-28 03:45] VITALS: BP 171/72
[2020-04-28] MEDS: HEPARIN for SUB-Q USE 5,000 UNIT/ML VIAL. SQ SCH ×3 (06:08→21:44)
[2020-04-28 07:00] VITALS: BP 160/73
[2020-04-28] MEDS ORDERED: PANTOPRAZOLE 40 MG TABLET.DR. PO SCH (07:30)
[2020-04-28] MEDS: INSULIN LISPRO 300 UNITS/3 ML VIAL. SQ SCH ×4 (07:30→20:07)
[2020-04-28] MEDS: SEVELAMER CARBONATE 800 MG TABLET. PO SCH ×4 (08:00→20:05)
[2020-04-28] MEDS: ASPIRIN CHEWABLE 81 MG TABLET. PO SCH (08:58)
[2020-04-28] MEDS: LISINOPRIL 20 MG TABLET PO SCH (08:58)
[2020-04-28] MEDS: amLODIPine BESYLATE 10 MG TABLET PO SCH (08:58)
[2020-04-28] MEDS: CARVEDILOL 12.5 MG TABLET. PO SCH ×2 (08:59→17:27)
[2020-04-28] MEDS: FUROSEMIDE 80 MG TABLET. PO SCH ×2 (09:00→16:23)
[2020-04-28] MEDS: FOLIC/VIT B COMP W-C (RENAL) TABLET. PO SCH (09:00)
[2020-04-28] MEDS: DOCUSATE SODIUM 100 MG CAPSULE. PO SCH (09:00)
[2020-04-28] MEDS: busPIRone 5 MG TABLET. PO SCH ×2 (09:00→20:06)
[2020-04-28] MEDS: hydrALAZINE 25 MG TABLET PO SCH ×2 (09:00→20:06)
[2020-04-28] MEDS: RANOLAZINE 500 MG TAB.ER.12H PO SCH ×2 (09:00→20:12)
--- NOTE | 2020-04-28 09:12 | PDOC ---
PROGRESS NOTES Chief Complaint Chief Complaint A/P: Atypical CP - neg trop and negative EKG. Likely costochondritis and possibly pancreatitis, but with his cardiac history and largely elevated BNP, will consult cardiology Elevated lipase - with his symptoms it is unclear if this is pancreatitis, no remarks on CT abdomen, though it was a non-contrast study. S/p ciaran, has elevated alk phos, will consult GI for recs CAD s/p CABG. Cath 2016 with patent grafts HTN - will cont meds BP disorder - on seroquel Seizures - on depakote Acute on chronic diastolic CHF; Echo 07/19 with preserved LV systolic function - will diurese, still makes some urine, likely gained weight 2/2 starting PD, will need UF Hyperlipidemia - cont statin Diabetes, II--insulin dependent - will cont 42u glargine and sliding scale ESRD on HD - transitioning to PD, will consult nephrology Large weight gain - dry weight previously 110kg, now 130kg, possibly related to new PD status, will consult nephrology for further recs. FEN - Renal ADA PPX - heparin FULL CODE Dispo - inpatient for 2 midnights History of Present Illness History of Present Illness Mr Bedolla 54 yo M w/ PMHx smoker, CAD, ischemic CM, ESRD on HD, BP disorder, seizure disorder, DM2, HTN who presents with epigastric chest pain radiating to his back since the past 4 days. Notes band-like squeezing chest pain that radiates to the back. He states he also has some shortness of breath with a cough also. He also complains of distended abdomen and nausea and abdominal pain that is in the bilateral upper quadrants. He is s/p PD cath placement 04/04/2020 with no signs of peritonitis. 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 He rates his pain a 10 out of 10. He has been feeling pain after eating so has not eaten today or taken any meds, including his pain medications. Negative COVID-19 on March 12, 2020. Denies fever, vomiting, diarrhea, dizziness, syncope, headache, vision changes, focal weakness, numbness or tingling and no recent travel or sick contacts. He relates to me he was on hospice until 3 months ago. Weight up 20kg from dry weight of 110kg. Cardiac workup negative in ED. cxr concerning for Left basilar atelectasis. CT abdomen with pelvic fluid and PD catheter. Labs: WBC 11.3, Hb 11.6, Platelets 267, Na 134, K 4.9, BUN 53, Cr 6.7, Glucose 256, BNP 49103, AST 20, ALT 24, Alk phos 182, Lipase 1535, albumin 3. normal trop. normal INR 0.9, lactate 1. Admitted for further treatment Afebrile overnight. Lipase up to 1608. Very drowsy today, had received multiple doses of fentanyl and oxycodone as well as ativan overnight. No SOB. Still c/o back pain 4/10 and abdominal pain 2/10. He is asking about having sutures removed from his right leg from recent surgery. Vitals Vitals Vital Signs Date Time Temp Pulse Resp B/P (MAP) Pulse Ox O2 Delivery O2 Flow Rate FiO2 04/28/20 07:00 98.1 79 20 160/73 (102) 95 Nasal Cannula 4.0 98.1 Physical Exam General: Alert, Oriented X3, Cooperative, moderate distress Abdomen: Normal bowel sounds, Soft, No hepatosplenomegaly, No masses, Other (bilateral upper quadrant and epigastric tenderness. PD catheter clean dry, intact.) Extremities: No clubbing, No cyanosis, No edema, Normal pulses, No tenderness/swelling Skin: No rashes, No breakdown, No significant lesion Labs LABS Laboratory Tests Test 04/27/20 16:20 04/27/20 21:15 04/28/20 00:36 04/28/20 03:57 White Blood Count 11.3 x10^3/uL (4.0-11.0) 9.6 x10^3/uL (4.0-11.0) Red Blood Count 3.60 x10^6/uL (4.30-5.70) 3.18 x10^6/uL (4.30-5.70) Hemoglobin 11.6 g/dL (13.0-17.5) 10.4 g/dL (13.0-17.5) Hematocrit 34.3 % (39.0-53.0) 30.1 % (39.0-53.0) Mean Corpuscular Volume 95 fL (79-100) 95 fL (79-100) Mean Corpuscular Hemoglobin 32 pg (25-35) 33 pg (25-35) Mean Corpuscular Hemoglobin Concent 34 g/dL (31-37) 35 g/dL (31-37) Red Cell Distribution Width 13.5 % (11.5-14.5) 13.6 % (11.5-14.5) Platelet Count 257 x10^3/uL (140-400) 212 x10^3/uL (140-400) Neutrophils (%) (Auto) 71 % (31-73) 60 % (31-73) Lymphocytes (%) (Auto) 15 % (24-48) 26 % (24-48) Monocytes (%) (Auto) 10 % (0-9) 10 % (0-9) Eosinophils (%) (Auto) 3 % (0-3) 3 % (0-3) Basophils (%) (Auto) 1 % (0-3) 0 % (0-3) Neutrophils # (Auto) 8.0 x10^3/uL (1.8-7.7) 5.8 x10^3/uL (1.8-7.7) Lymphocytes # (Auto) 1.7 x10^3/uL (1.0-4.8) 2.5 x10^3/uL (1.0-4.8) Monocytes # (Auto) 1.2 x10^3/uL (0.0-1.1) 1.0 x10^3/uL (0.0-1.1) Eosinophils # (Auto) 0.3 x10^3/uL (0.0-0.7) 0.3 x10^3/uL (0.0-0.7) Basophils # (Auto) 0.1 x10^3/uL (0.0-0.2) 0.0 x10^3/uL (0.0-0.2) Prothrombin Time 12.2 SEC (11.7-14.0) Prothromb Time International Ratio 0.9 (0.8-1.1) Sodium Level 134 mmol/L (136-145) 136 mmol/L (136-145) Potassium Level 4.9 mmol/L (3.5-5.1) 4.5 mmol/L (3.5-5.1) Chloride Level 98 mmol/L (98-107) 100 mmol/L (98-107) Carbon Dioxide Level 28 mmol/L (21-32) 27 mmol/L (21-32) Anion Gap 8 (6-14) 9 (6-14) Blood Urea Nitrogen 53 mg/dL (8-26) 57 mg/dL (8-26) Creatinine 6.7 mg/dL (0.7-1.3) 7.0 mg/dL (0.7-1.3) Estimated GFR (Cockcroft-Gault) 8.7 8.3 BUN/Creatinine Ratio 8 (6-20) 8 (6-20) Glucose Level 256 mg/dL (70-99) 199 mg/dL (70-99) Lactic Acid Level 1.0 mmol/L (0.4-2.0) Calcium Level 8.2 mg/dL (8.5-10.1) 7.9 mg/dL (8.5-10.1) Total Bilirubin 0.3 mg/dL (0.2-1.0) 0.3 mg/dL (0.2-1.0) Aspartate Amino Transf (AST/SGOT) 20 U/L (15-37) 19 U/L (15-37) Alanine Aminotransferase (ALT/SGPT) 24 U/L (16-63) 25 U/L (16-63) Alkaline Phosphatase 182 U/L (46-116) 156 U/L (46-116) Troponin I Quantitative < 0.017 ng/mL (0.000-0.055) < 0.017 ng/mL (0.000-0.055) < 0.017 ng/mL (0.000-0.055) AX-Ift-B-Type Natriuretic Peptide 74751 pg/mL (0-124) Total Protein 7.1 g/dL (6.4-8.2) 5.6 g/dL (6.4-8.2) Albumin 3.0 g/dL (3.4-5.0) 2.6 g/dL (3.4-5.0) Albumin/Globulin Ratio 0.7 (1.0-1.7) 0.9 (1.0-1.7) Lipase 1535 U/L (73-393) 1608 U/L (73-393) Glucose (Fingerstick) 233 mg/dL (70-99) C-Reactive Protein, Quantitative 45.1 mg/L (0-3.3) Phosphorus Level 5.9 mg/dL (2.6-4.7) Test 04/28/20 07:44 04/28/20 08:52 Glucose (Fingerstick) 167 mg/dL (70-99) 192 mg/dL (70-99) Assessment and Plan Assessmemt and Plan Problems Medical Problems: (1) Chest pain Status: Acute Comment Review of Relevant I have reviewed the following items nelda (where applicable) has been applied. Labs Laboratory Tests Test 04/27/20 16:20 04/27/20 21:15 04/28/20 00:36 04/28/20 03:57 White Blood Count 11.3 x10^3/uL (4.0-11.0) 9.6 x10^3/uL (4.0-11.0) Red Blood Count 3.60 x10^6/uL (4.30-5.70) 3.18 x10^6/uL (4.30-5.70) Hemoglobin 11.6 g/dL (13.0-17.5) 10.4 g/dL (13.0-17.5) Hematocrit 34.3 % (39.0-53.0) 30.1 % (39.0-53.0) Mean Corpuscular Volume 95 fL (79-100) 95 fL (79-100) Mean Corpuscular Hemoglobin 32 pg (25-35) 33 pg (25-35) Mean Corpuscular Hemoglobin Concent 34 g/dL (31-37) 35 g/dL (31-37) Red Cell Distribution Width 13.5 % (11.5-14.5) 13.6 % (11.5-14.5) Platelet Count 257 x10^3/uL (140-400) 212 x10^3/uL (140-400) Neutrophils (%) (Auto) 71 % (31-73) 60 % (31-73) Lymphocytes (%) (Auto) 15 % (24-48) 26 % (24-48) Monocytes (%) (Auto) 10 % (0-9) 10 % (0-9) Eosinophils (%) (Auto) 3 % (0-3) 3 % (0-3) Basophils (%) (Auto) 1 % (0-3) 0 % (0-3) Neutrophils # (Auto) 8.0 x10^3/uL (1.8-7.7) 5.8 x10^3/uL (1.8-7.7) Lymphocytes # (Auto) 1.7 x10^3/uL (1.0-4.8) 2.5 x10^3/uL (1.0-4.8) Monocytes # (Auto) 1.2 x10^3/uL (0.0-1.1) 1.0 x10^3/uL (0.0-1.1) Eosinophils # (Auto) 0.3 x10^3/uL (0.0-0.7) 0.3 x10^3/uL (0.0-0.7) Basophils # (Auto) 0.1 x10^3/uL (0.0-0.2) 0.0 x10^3/uL (0.0-0.2) Prothrombin Time 12.2 SEC (11.7-14.0) Prothromb Time International Ratio 0.9 (0.8-1.1) Sodium Level 134 mmol/L (136-145) 136 mmol/L (136-145) Potassium Level 4.9 mmol/L (3.5-5.1) 4.5 mmol/L (3.5-5.1) Chloride Level 98 mmol/L (98-107) 100 mmol/L (98-107) Carbon Dioxide Level 28 mmol/L (21-32) 27 mmol/L (21-32) Anion Gap 8 (6-14) 9 (6-14) Blood Urea Nitrogen 53 mg/dL (8-26) 57 mg/dL (8-26) Creatinine 6.7 mg/dL (0.7-1.3) 7.0 mg/dL (0.7-1.3) Estimated GFR (Cockcroft-Gault) 8.7 8.3 BUN/Creatinine Ratio 8 (6-20) 8 (6-20) Glucose Level 256 mg/dL (70-99) 199 mg/dL (70-99) Lactic Acid Level 1.0 mmol/L (0.4-2.0) Calcium Level 8.2 mg/dL (8.5-10.1) 7.9 mg/dL (8.5-10.1) Total Bilirubin 0.3 mg/dL (0.2-1.0) 0.3 mg/dL (0.2-1.0) Aspartate Amino Transf (AST/SGOT) 20 U/L (15-37) 19 U/L (15-37) Alanine Aminotransferase (ALT/SGPT) 24 U/L (16-63) 25 U/L (16-63) Alkaline Phosphatase 182 U/L (46-116) 156 U/L (46-116) Troponin I Quantitative < 0.017 ng/mL (0.000-0.055) < 0.017 ng/mL (0.000-0.055) < 0.017 ng/mL (0.000-0.055) GX-Wbs-Z-Type Natriuretic Peptide 82678 pg/mL (0-124) Total Protein 7.1 g/dL (6.4-8.2) 5.6 g/dL (6.4-8.2) Albumin 3.0 g/dL (3.4-5.0) 2.6 g/dL (3.4-5.0) Albumin/Globulin Ratio 0.7 (1.0-1.7) 0.9 (1.0-1.7) Lipase 1535 U/L (73-393) 1608 U/L (73-393) Glucose (Fingerstick) 233 mg/dL (70-99) C-Reactive Protein, Quantitative 45.1 mg/L (0-3.3) Phosphorus Level 5.9 mg/dL (2.6-4.7) Test 04/28/20 07:44 04/28/20 08:52 Glucose (Fingerstick) 167 mg/dL (70-99) 192 mg/dL (70-99) Laboratory Tests Test 04/27/20 16:20 04/27/20 21:15 04/28/20 00:36 04/28/20 03:57 White Blood Count 11.3 x10^3/uL (4.0-11.0) 9.6 x10^3/uL (4.0-11.0) Red Blood Count 3.60 x10^6/uL (4.30-5.70) 3.18 x10^6/uL (4.30-5.70) Hemoglobin 11.6 g/dL (13.0-17.5) 10.4 g/dL (13.0-17.5) Hematocrit 34.3 % (39.0-53.0) 30.1 % (39.0-53.0) Mean Corpuscular Volume 95 fL (79-100) 95 fL (79-100) Mean Corpuscular Hemoglobin 32 pg (25-35) 33 pg (25-35) Mean Corpuscular Hemoglobin Concent 34 g/dL (31-37) 35 g/dL (31-37) Red Cell Distribution Width 13.5 % (11.5-14.5) 13.6 % (11.5-14.5) Platelet Count 257 x10^3/uL (140-400) 212 x10^3/uL (140-400) Neutrophils (%) (Auto) 71 % (31-73) 60 % (31-73) Lymphocytes (%) (Auto) 15 % (24-48) 26 % (24-48) Monocytes (%) (Auto) 10 % (0-9) 10 % (0-9) Eosinophils (%) (Auto) 3 % (0-3) 3 % (0-3) Basophils (%) (Auto) 1 % (0-3) 0 % (0-3) Neutrophils # (Auto) 8.0 x10^3/uL (1.8-7.7) 5.8 x10^3/uL (1.8-7.7) Lymphocytes # (Auto) 1.7 x10^3/uL (1.0-4.8) 2.5 x10^3/uL (1.0-4.8) Monocytes # (Auto) 1.2 x10^3/uL (0.0-1.1) 1.0 x10^3/uL (0.0-1.1) Eosinophils # (Auto) 0.3 x10^3/uL (0.0-0.7) 0.3 x10^3/uL (0.0-0.7) Basophils # (Auto) 0.1 x10^3/uL (0.0-0.2) 0.0 x10^3/uL (0.0-0.2) Prothrombin Time 12.2 SEC (11.7-14.0) Prothromb Time International Ratio 0.9 (0.8-1.1) Sodium Level 134 mmol/L (136-145) 136 mmol/L (136-145) Potassium Level 4.9 mmol/L (3.5-5.1) 4.5 mmol/L (3.5-5.1) Chloride Level 98 mmol/L (98-107) 100 mmol/L (98-107) Carbon Dioxide Level 28 mmol/L (21-32) 27 mmol/L (21-32) Anion Gap 8 (6-14) 9 (6-14) Blood Urea Nitrogen 53 mg/dL (8-26) 57 mg/dL (8-26) Creatinine 6.7 mg/dL (0.7-1.3) 7.0 mg/dL (0.7-1.3) Estimated GFR (Cockcroft-Gault) 8.7 8.3 BUN/Creatinine Ratio 8 (6-20) 8 (6-20) Glucose Level 256 mg/dL (70-99) 199 mg/dL (70-99) Lactic Acid Level 1.0 mmol/L (0.4-2.0) Calcium Level 8.2 mg/dL (8.5-10.1) 7.9 mg/dL (8.5-10.1) Total Bilirubin 0.3 mg/dL (0.2-1.0) 0.3 mg/dL (0.2-1.0) Aspartate Amino Transf (AST/SGOT) 20 U/L (15-37) 19 U/L (15-37) Alanine Aminotransferase (ALT/SGPT) 24 U/L (16-63) 25 U/L (16-63) Alkaline Phosphatase 182 U/L (46-116) 156 U/L (46-116) Troponin I Quantitative < 0.017 ng/mL (0.000-0.055) < 0.017 ng/mL (0.000-0.055) < 0.017 ng/mL (0.000-0.055) PV-Biz-F-Type Natriuretic Peptide 04555 pg/mL (0-124) Total Protein 7.1 g/dL (6.4-8.2) 5.6 g/dL (6.4-8.2) Albumin 3.0 g/dL (3.4-5.0) 2.6 g/dL (3.4-5.0) Albumin/Globulin Ratio 0.7 (1.0-1.7) 0.9 (1.0-1.7) Lipase 1535 U/L (73-393) 1608 U/L (73-393) Glucose (Fingerstick) 233 mg/dL (70-99) C-Reactive Protein, Quantitative 45.1 mg/L (0-3.3) Phosphorus Level 5.9 mg/dL (2.6-4.7) Test 04/28/20 07:44 04/28/20 08:52 Glucose (Fingerstick) 167 mg/dL (70-99) 192 mg/dL (70-99) Medications Current Medications Aspirin (Katie Aspirin) 325 mg 1X ONCE PO Last administered on 04/27/20at 16:48; Start 04/27/20 at 16:15; Stop 04/27/20 at 16:16; Status DC Fentanyl Citrate (Fentanyl 2ml Vial) 50 mcg 1X ONCE IVP Last administered on 04/27/20at 16:55; Start 04/27/20 at 17:00; Stop 04/27/20 at 17:01; Status DC Ondansetron HCl (Zofran) 4 mg PRN Q8HRS PRN IV NAUSEA/VOMITING Last administered on 04/27/20at 19:13; Start 04/27/20 at 18:00; Stop 04/27/20 at 2 0:20; Status DC Fentanyl Citrate (Fentanyl 2ml Vial) 50 mcg PRN Q1HR PRN IV PAIN Last administered on 04/27/20at 19:36; Start 04/27/20 at 18:00; Stop 04/27/20 at 20:20; Status DC Ondansetron HCl (Zofran) 4 mg PRN Q4HRS PRN IV NAUSEA/VOMITING; Start 04/27/20 at 20:30 Insulin Human Lispro (HumaLOG) 0-7 UNITS TIDACHC SQ ; Start 04/27/20 at 21:15 Dextrose (Dextrose 50%-Water Syringe) 12.5 gm PRN Q15MIN PRN IV SEE COMMENTS; Start 04/27/20 at 20:30 Amlodipine Besylate (Norvasc) 10 mg DAILY PO ; Start 04/28/20 at 09:00 Aspirin (Aspirin Chewable) 81 mg DAILY PO ; Start 04/28/20 at 09:00 Buspirone HCl (Buspar) 5 mg BID PO Last administered on 04/27/20at 22:45; Start 04/27/20 at 21:15 Divalproex Sodium (Depakote) 1,000 mg BID PO Last administered on 04/27/20at 21: 07; Start 04/27/20 at 21:00 Docusate Sodium (Colace) 100 mg DAILY PO ; Start 04/28/20 at 09:00 Vitamin B Complex/ Vitamin C (Gissel-Irvin) 1 tab DAILY PO ; Start 04/28/20 at 09:00 Furosemide (Lasix) 120 mg BID92 PO ; Start 04/28/20 at 09:00 Hydralazine HCl (Apresoline) 25 mg BID PO Last administered on 04/27/20at 21:07; Start 04/27/20 at 21:00 Lisinopril (Prinivil) 20 mg DAILY PO ; Start 04/28/20 at 09:00 Lorazepam (Ativan) 0.5 mg PRN Q8HRS PRN PO anxiety Last administered on 04/27/20at 21:07; Start 04/27/20 at 20:30 Lubiprostone (Amitiza) 24 mcg DAILY PO ; Start 04/28/20 at 09:00 Nitroglycerin (Nitrostat) 0.4 mg PRN Q5MIN PRN SL CHEST PAIN; Start 04/27/20 at 20:30 Ondansetron HCl (Zofran Odt) 4 mg PRN Q4HRS PRN PO NAUSEA; Start 04/27/20 at 20:30; Status Cancel Oxycodone/ Acetaminophen (Percocet 10/325) 1 tab PRN BID PRN PO SEVERE PAIN 7- 10 Last administered on 04/27/20at 21:06; Start 04/27/20 at 20:30 Quetiapine Fumarate (SEROquel) 100 mg QHS PO Last administered on 04/27/20at 21:07; Start 04/27/20 at 21:00 Sevelamer Carbonate (Renvela) 800 mg TIDWMEALS PO ; Start 04/28/20 at 08:00 Carvedilol (Coreg) 12.5 mg BIDWMEALS PO ; Start 04/28/20 at 08:00 Citalopram Hydrobromide (CeleXA) 40 mg HS PO Last administered on 04/27/20at 22:45; Start 04/27/20 at 21:15 Diphenhydramine HCl (Benadryl) 25 mg HS PO Last administered on 04/27/20at 21:07; Start 04/27/20 at 21:00 Non-Formulary Medication (Insulin Degludec (Tresiba)) 42 unit QHS SQ ; Start 04/27/20 at 21:00; Status UNV Ondansetron HCl (Zofran Odt) 4 mg PRN Q8HRS PRN PO NAUSEA/VOMITING; Start 04/27/20 at 21:00 Pantoprazole Sodium (Protonix) 40 mg DAILYAC PO ; Start 04/28/20 at 07:30 Ranolazine (Ranexa) 500 mg BID PO Last administered on 04/27/20at 22:45; Start 04/27/20 at 21:15 Trazodone HCl (Desyrel) 150 mg HS PO Last administered on 04/27/20at 21:06; Start 04/27/20 at 21:00 Diclofenac Sodium (Voltaren) 1 christo BID TP Last administered on 04/27/20at 21:14; Start 04/28/20 at 09:00 Psyllium Hydrophilic Mucilloid (Metamucil Fiber Packet) 1 pkt QHS PO ; Start 04/27/20 at 21:15 Polyethylene Glycol (miraLAX PACKET) 17 gm QHS PO ; Start 04/27/20 at 21:00 Bisacodyl (Dulcolax Supp) 10 mg PRN DAILY PRN [place] CONSTIPATION; Start 04/27/20 at 21:00; Status UNV Lactulose (Lactulose) 20 gm PRN DAILY PRN PO CONSTIPATION; Start 04/27/20 at 21:00 Heparin Sodium (Porcine) (Heparin Sodium) 5,000 unit Q8HRS SQ Last administered on 04/28/20at 06:08; Start 04/27/20 at 22:00 Hydralazine HCl (Apresoline Inj) 10 mg PRN Q4HRS PRN IVP ELEVATED BP, SEE COMMENTS; Start 04/27/20 at 21:00 Insulin Glargine (Lantus Syringe) 42 unit QHS SQ Last administered on 04/27/20at 22:54; Start 04/27/20 at 21:30 Fentanyl Citrate (Fentanyl 2ml Vial) 50 mcg PRN Q1HR PRN IVP PAIN Last administered on 04/27/20at 22:48; Start 04/27/20 at 22:30 Active Scripts Active Ondansetron Odt (Ondansetron) 4 Mg Tab.rapdis 1 Tab PO PRN Q6-8HRS PRN Percocet 10-325 Mg Tablet (Oxycodone/Acetaminophen) 1 Each Tablet 1 Tab PO PRN BID PRN MDD 2 Tablet(s) 5 Days [Diclofenac Sodium] 100 GM Gel..gram. 1 Christo TP BID 30 Days Reported Renal-Irvin Tablet (Folic Acid/Vit Bcomp,C) 0.8 Mg Tablet 0.8 Mg PO DAILY Novolog (Insulin Aspart) 100 Unit/1 Ml Vial 0 SQ PRN TID PRN Ibuprofen 600 Mg Tablet 600 Mg PO PRN Q12HR PRN Diphenhydramine Hcl 25 Mg Tablet 25 Mg PO QHS Furosemide 80 Mg Tablet 120 Mg PO BID Tresiba (Insulin Degludec) 100 Unit/1 Ml Vial 42 Unit SQ DAILY Ativan (Lorazepam) 1 Mg Tablet 0.5 Mg PO Q4HRS Percocet 10-325 Mg Tablet (Oxycodone/Acetaminophen) 1 Each Tablet 1 Tab PO BID Buspirone Hcl 5 Mg Tablet 5 Mg PO BID Lisinopril 20 Mg Tablet 20 Mg PO DAILY Zofran (Ondansetron Hcl) 4 Mg Tablet 1 Tab PO PRN Q4HRS PRN NITROGLYCERIN SubLingual (Nitroglycerin) 0.4 Mg Tab.subl 0.4 Mg SL PRN Q5MIN PRN Hydralazine Hcl 25 Mg Tablet 1 Tab PO BID Gabapentin 400 Mg Capsule 400 Mg PO BID Citalopram Hbr (Citalopram Hydrobromide) 40 Mg Tablet 40 Mg PO HS Cyclobenzaprine Hcl 10 Mg Tablet 1 Tab PO TID PRN PRN Ranexa (Ranolazine) 1,000 Mg Tab.er.12h 0.5 Tab PO BID Seroquel (Quetiapine Fumarate) 100 Mg Tablet 1 Tab PO QHS Protonix (Pantoprazole Sodium) 20 Mg Tablet.dr 40 Mg PO DAILY Docusate Sodium 100 Mg Capsule 1 Cap PO DAILY Divalproex Sodium 500 Mg Tablet.dr 2 Tab PO BID Aspirin 81 Mg Tab.chew 1 Tab PO DAILY Amitiza (Lubiprostone) 24 Mcg Capsule 1 Cap PO DAILY Norvasc (Amlodipine Besylate) 10 Mg Tablet 10 Mg PO DAILY Coreg (Carvedilol) 25 Mg Tablet 12.5 Mg PO BIDWMEALS Metolazone 5 Mg Tablet 5 Mg PO DAILY Renvela (Sevelamer Carbonate) 800 Mg Tablet 800 Mg PO TIDWMEALS Trazodone Hcl 300 Mg Tablet 150 Mg PO HS Vitals/I & O Vital Sign - Last 24 Hours 04/27/20 04/27/20 04/27/20 04/27/20 16:00 16:39 17:39 18:39 Temp 99.0 99.0 Pulse 76 76 75 75 Resp 16 16 16 16 B/P (MAP) 197/76 (116) 194/86 (122) 195/94 (127) 173/74 (107) Pulse Ox 99 94 94 94 O2 Delivery Room Air Room Air Room Air Room Air 04/27/20 04/27/20 04/27/20 04/27/20 19:15 19:25 19:36 19:42 Pulse 74 76 Resp 18 17 19 17 B/P (MAP) 186/76 (112) 182/81 (114) Pulse Ox 94 98 95 O2 Delivery Room Air Room Air Room Air Room Air 04/27/20 04/27/20 04/27/20 04/27/20 20:00 20:00 21:06 21:07 Temp 98.4 98.4 Pulse 77 77 Resp 20 18 B/P (MAP) 171/96 (121) 171/96 Pulse Ox 98 98 O2 Delivery Nasal Cannula Room Air Room Air O2 Flow Rate 2.0 04/27/20 04/27/20 04/27/20 04/27/20 21:45 22:06 22:45 22:48 Pulse 76 76 Resp 22 20 B/P (MAP) 187/87 (120) 187/87 Pulse Ox 96 91 96 O2 Delivery Room Air 04/27/20 04/27/20 04/28/20 04/28/20 22:50 23:18 03:45 07:00 Temp 98.3 97.6 98.1 98.3 97.6 98.1 Pulse 75 78 79 Resp 20 20 20 20 B/P (MAP) 166/74 (104) 171/72 (105) 160/73 (102) Pulse Ox 91 91 90 95 O2 Delivery Room Air Room Air Nasal Cannula O2 Flow Rate 4.0 Intake and Output 04/27/20 04/27/20 04/28/20 15:00 23:00 07:00 Intake Total 240 ml Output Total 400 ml Balance -160 ml GALI ROMERO MD Apr 28, 2020 09:11
[2020-04-28 09:30] LABS: BASE EXCESS ABG -1 mmol/L (-3-3); HCO3 ABG 24 mmol/L (21-28); PCO2 ABG 44 mmHg (35-46); PO2 ABG 58 mmHg (75-108); SAT O2 ABG 87 % (92-99)
[2020-04-28 09:35] LABS: FIO2 ABG 21%
--- NOTE | 2020-04-28 10:33 | PDOC2 ---
GI CONSULT Reason For Consult: elevated lipase, abdominal pain HPI: HPI: 54 y/o male who we have seen in the past for atypical chest pain w/ radiation to back during dialysis and h/o GERD. He is drowsy and not forthcoming with information this morning. Can tell me epigastric/LUQ pain wrapping around to back "like a bear hug." Denies vomiting. Reports normal stool yesterday. Noted w/ elevated lipase (1535 yesterday, 1608 today) w/ normal pancreas on CTs on 03/14/20, 04/20, and 04/27. Lipase was mildly elevated once in 2018. Elevated Alk Phos noted since 2018 as well. D/w nurse - got Ativan, Percocet, Fentanyl overnight. Apparently on Hospice until recently? On PPI when we saw in the past. Pantoprazole, Amitiza, ASA. ibuprofen, and Percocet on summary list. 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 [facility] records reviewed during admission in 07/2018 - cocaine user, consideration for tandem kidney/pancreas transplants. [place] [facility] [place]: Colonoscopy 02/07/18: poor prep, two 6mm adenomatous polyps in left colon. Report indicates colonoscopy in 2017 was also w/ poor prep, the follow-up virtual colonoscopy was negative. Recommendation to repeat colonoscopy in 1 year w/ 2 day prep. EGD 02/28/18: normal esophagus, erythema in gastric body and antrum without ulcers (biopsy negative for H, pylori), and normal duodenum (biopsy negative for pathology including celiac disease). Notes also mention h/o ventral hernia repair and lap ciaran (path w/ chronic cholecystitis and cholelithiasis). PMH: PMH: per last encounter and chart: CAD, CHF, HTN, syncope, bronchitis, PE, pneumonia, AMARJIT, CVA, HLD, PVD, ESRD on HD, hyperparathyroidism, anxiety, depression, DM, anemia, tibia and hip fractures, gynecomastia, anxiety, PTSD cholecystectomy, CABG, tonsillectomy, LUE fistula, PD cath placement/removal/replacement, ventral hernia repair, heart cath, right hip surgery FH: Family History: No pertinent hx Social History: Smoke: <1 pack per day Drugs: Cocaine (+07/2018) ROS: Difficult to obtain, see HPI. Vitals: Vitals: Vital Signs Date Time Temp Pulse Resp B/P (MAP) Pulse Ox O2 Delivery O2 Flow Rate FiO2 04/28/20 09:35 Room Air 04/28/20 08:59 75 04/28/20 08:58 160/72 04/28/20 07:00 98.1 20 95 4.0 98.1 Labs: Labs: Laboratory Tests Test 04/27/20 16:20 04/27/20 21:15 04/28/20 00:36 04/28/20 03:57 White Blood Count 11.3 x10^3/uL (4.0-11.0) 9.6 x10^3/uL (4.0-11.0) Red Blood Count 3.60 x10^6/uL (4.30-5.70) 3.18 x10^6/uL (4.30-5.70) Hemoglobin 11.6 g/dL (13.0-17.5) 10.4 g/dL (13.0-17.5) Hematocrit 34.3 % (39.0-53.0) 30.1 % (39.0-53.0) Mean Corpuscular Volume 95 fL (79-100) 95 fL (79-100) Mean Corpuscular Hemoglobin 32 pg (25-35) 33 pg (25-35) Mean Corpuscular Hemoglobin Concent 34 g/dL (31-37) 35 g/dL (31-37) Red Cell Distribution Width 13.5 % (11.5-14.5) 13.6 % (11.5-14.5) Platelet Count 257 x10^3/uL (140-400) 212 x10^3/uL (140-400) Neutrophils (%) (Auto) 71 % (31-73) 60 % (31-73) Lymphocytes (%) (Auto) 15 % (24-48) 26 % (24-48) Monocytes (%) (Auto) 10 % (0-9) 10 % (0-9) Eosinophils (%) (Auto) 3 % (0-3) 3 % (0-3) Basophils (%) (Auto) 1 % (0-3) 0 % (0-3) Neutrophils # (Auto) 8.0 x10^3/uL (1.8-7.7) 5.8 x10^3/uL (1.8-7.7) Lymphocytes # (Auto) 1.7 x10^3/uL (1.0-4.8) 2.5 x10^3/uL (1.0-4.8) Monocytes # (Auto) 1.2 x10^3/uL (0.0-1.1) 1.0 x10^3/uL (0.0-1.1) Eosinophils # (Auto) 0.3 x10^3/uL (0.0-0.7) 0.3 x10^3/uL (0.0-0.7) Basophils # (Auto) 0.1 x10^3/uL (0.0-0.2) 0.0 x10^3/uL (0.0-0.2) Prothrombin Time 12.2 SEC (11.7-14.0) Prothromb Time International Ratio 0.9 (0.8-1.1) Sodium Level 134 mmol/L (136-145) 136 mmol/L (136-145) Potassium Level 4.9 mmol/L (3.5-5.1) 4.5 mmol/L (3.5-5.1) Chloride Level 98 mmol/L (98-107) 100 mmol/L (98-107) Carbon Dioxide Level 28 mmol/L (21-32) 27 mmol/L (21-32) Anion Gap 8 (6-14) 9 (6-14) Blood Urea Nitrogen 53 mg/dL (8-26) 57 mg/dL (8-26) Creatinine 6.7 mg/dL (0.7-1.3) 7.0 mg/dL (0.7-1.3) Estimated GFR (Cockcroft-Gault) 8.7 8.3 BUN/Creatinine Ratio 8 (6-20) 8 (6-20) Glucose Level 256 mg/dL (70-99) 199 mg/dL (70-99) Lactic Acid Level 1.0 mmol/L (0.4-2.0) Calcium Level 8.2 mg/dL (8.5-10.1) 7.9 mg/dL (8.5-10.1) Total Bilirubin 0.3 mg/dL (0.2-1.0) 0.3 mg/dL (0.2-1.0) Aspartate Amino Transf (AST/SGOT) 20 U/L (15-37) 19 U/L (15-37) Alanine Aminotransferase (ALT/SGPT) 24 U/L (16-63) 25 U/L (16-63) Alkaline Phosphatase 182 U/L (46-116) 156 U/L (46-116) Troponin I Quantitative < 0.017 ng/mL (0.000-0.055) < 0.017 ng/mL (0.000-0.055) < 0.017 ng/mL (0.000-0.055) CY-Gtf-M-Type Natriuretic Peptide 97172 pg/mL (0-124) Total Protein 7.1 g/dL (6.4-8.2) 5.6 g/dL (6.4-8.2) Albumin 3.0 g/dL (3.4-5.0) 2.6 g/dL (3.4-5.0) Albumin/Globulin Ratio 0.7 (1.0-1.7) 0.9 (1.0-1.7) Lipase 1535 U/L (73-393) 1608 U/L (73-393) Glucose (Fingerstick) 233 mg/dL (70-99) C-Reactive Protein, Quantitative 45.1 mg/L (0-3.3) Phosphorus Level 5.9 mg/dL (2.6-4.7) Test 04/28/20 07:44 04/28/20 08:52 04/28/20 09:25 Glucose (Fingerstick) 167 mg/dL (70-99) 192 mg/dL (70-99) O2 Saturation 87 % (92-99) Arterial Blood pH 7.36 (7.35-7.45) Arterial Blood pCO2 at Patient Temp 44 mmHg (35-46) Arterial Blood pO2 at Patient Temp 58 mmHg (75-108) Arterial Blood HCO3 24 mmol/L (21-28) Arterial Blood Base Excess -1 mmol/L (-3-3) FiO2 21% Allergies: Coded Allergies: hydromorphone (Verified Allergy, Severe, Anaphylaxis, 04/04/20) morphine ok Medications: Current Medications Medications (Trade) Dose Ordered Sig/Brittani Route PRN Reason Start Time Stop Time Status Last Admin Dose Admin Aspirin (Katie Aspirin) 325 mg 1X ONCE PO 04/27/20 16:15 04/27/20 16:16 DC 04/27/20 16:48 Fentanyl Citrate (Fentanyl 2ml Vial) 50 mcg 1X ONCE IVP 04/27/20 17:00 04/27/20 17:01 DC 04/27/20 16:55 Ondansetron HCl (Zofran) 4 mg PRN Q8HRS PRN IV NAUSEA/VOMITING 04/27/20 18:00 04/27/20 20:20 DC 04/27/20 19:13 Fentanyl Citrate (Fentanyl 2ml Vial) 50 mcg PRN Q1HR PRN IV PAIN 04/27/20 18:00 04/27/20 20:20 DC 04/27/20 19:36 Amlodipine Besylate (Norvasc) 10 mg DAILY PO 04/28/20 09:00 04/28/20 08:58 Aspirin (Aspirin Chewable) 81 mg DAILY PO 04/28/20 09:00 04/28/20 08:58 Buspirone HCl (Buspar) 5 mg BID PO 04/27/20 21:15 04/27/20 22:45 Divalproex Sodium (Depakote) 1,000 mg BID PO 04/27/20 21:00 04/27/20 21:07 Furosemide (Lasix) 120 mg BID92 PO 04/28/20 09:00 04/28/20 09:00 Hydralazine HCl (Apresoline) 25 mg BID PO 04/27/20 21:00 04/27/20 21:07 Lisinopril (Prinivil) 20 mg DAILY PO 04/28/20 09:00 04/28/20 08:58 Lorazepam (Ativan) 0.5 mg PRN Q8HRS PRN PO anxiety 04/27/20 20:30 04/28/20 09:11 DC 04/27/20 21:07 Oxycodone/ Acetaminophen (Percocet 10/325) 1 tab PRN BID PRN PO SEVERE PAIN 7-10 04/27/20 20:30 04/27/20 21:06 Quetiapine Fumarate (SEROquel) 100 mg QHS PO 04/27/20 21:00 04/27/20 21:07 Carvedilol (Coreg) 12.5 mg BIDWMEALS PO 04/28/20 08:00 04/28/20 08:59 Citalopram Hydrobromide (CeleXA) 40 mg HS PO 04/27/20 21:15 04/27/20 22:45 Diphenhydramine HCl (Benadryl) 25 mg HS PO 04/27/20 21:00 04/27/20 21:07 Ranolazine (Ranexa) 500 mg BID PO 04/27/20 21:15 04/27/20 22:45 Trazodone HCl (Desyrel) 150 mg HS PO 04/27/20 21:00 04/27/20 21:06 Diclofenac Sodium (Voltaren) 1 jv BID TP 04/28/20 09:00 04/27/20 21:14 Heparin Sodium (Porcine) (Heparin Sodium) 5,000 unit Q8HRS SQ 04/27/20 22:00 04/28/20 06:08 Insulin Glargine (Lantus Syringe) 42 unit QHS SQ 04/27/20 21:30 04/27/20 22:54 Fentanyl Citrate (Fentanyl 2ml Vial) 50 mcg PRN Q1HR PRN IVP PAIN 04/27/20 22:30 04/28/20 09:11 DC 04/27/20 22:48 Imaging: Imaging: CXR 04/27 IMPRESSION: Left basilar atelectasis. CT A/P 04/27 Impression: Mild free fluid the pelvis could be secondary to peritoneal dialysis. Otherwise no acute findings. PE: GEN: NAD HEENT: Atraumatic LUNGS: CTAB HEART: RRR ABD: quiet, some distention, PD cath LLQ - some discomfort epigastrium/LUQ, also to right abdomen and around PD cath EXTREMITY: No edema SKIN: old adhesive on abdomen NEURO/PSYCH: drowsy, difficult to rouse A/P: A/P: Abdominal/chest/back pain - ?similar to past encounters Elevated lipase - normal pancreas on CT x 3 GERD CRC screen, h/o adenomatous polyps - poor prep in the past S/p cholecystectomy CAD, DM, ESRD - has not transitioned to PD from HD yet -- Difficult historian this morning, will review w/ Dr. Orantes. Keep NPO for now. Defer IVF to primary/cardiology/nephrology. Continue PPI - will change to IV for now. Check tox screen w/ h/o substance abuse. DARRIN BOATENG Apr 28, 2020 10:33
--- NOTE | 2020-04-28 10:58 | NUR ---
Orders received and chart reviewed. Per nursing, patient has been very drowsy and difficult to arouse. Patient has been on therapy caseload in the past secondary to weakness. Patient would benefit from further evaluation when appropriate to participate in skilled therapy services. Please order when able. Thank you. Addendum: 04/28/20 at 1058 by EDIL LITTLE, PT PT Amended: Links added.
[2020-04-28 11:00] VITALS: BP 147/69
--- NOTE | 2020-04-28 11:22 | EKG ---
[facility] [address] [place] [address] Test Date: 2020-04-27 Test Time: 16:02:23 Pat Name: JULIAN GARCÍA Department: Room: 260 1 Gender: M Ergon[employer] Specialist: : [id number] Requested By: JERSON WILLIAMSON Order Number: [id number] Reading MD: Jose Royal MD Measurements Intervals [place] Rate: 78 P: 35 [place]: 188 QRS: -24 QRSD: 90 T: 73 QT: 378 QTc: 434 Interpretive Statements SINUS RHYTHM Electronically Signed On 05-26-2020 9:20:25 CDT by Jose Royal MD
[2020-04-28] MEDS ORDERED: PANTOPRAZOLE IV PUSH 40 MG VIAL. IVP SCH (11:30)
--- NOTE | 2020-04-28 12:10 | PDOC2 ---
CARDIOLOGY CONSULT NOTE CHIEF COMPLAINT: Abdominal pain and chest pain HPI: Consulting physician Dr. Junior History of present illness 54-year-old man with past medical history as noted below who presents with atypical chest pain. He reports a squeezing type discomfort that is constant in nature without any significant alleviating or aggravating factors. His is in the room today with him and reports that he has been fatigued and has been struggling with GI issues for quite some time. He was recently admitted to the hospital in February 2020 and evaluation was suggestive of possible peritoneal issues. At home baseline patient has limited functional capacity due to his various comorbidities. He does not have any anginal symptoms. PMHX: 1. Coronary artery disease status post four-vessel bypass with a cardiac catheterization in 2017 revealing 4 out of 4 patent patent bypass grafts 2. Hypertension 3. Diabetes 4. Possible diabetic gastroparesis 5. End-stage renal disease 6. Polysubstance abuse SOCHX: Patient is . Denies any illicit drug use. He does smoke 1 pack/day. He does not work currently. FAMHX: Noncontributory CURRENT MEDS: Current Medications Medications (Trade) Dose Ordered Sig/Brittani Route PRN Reason Start Time Stop Time Status Last Admin Dose Admin Aspirin (Katie Aspirin) 325 mg 1X ONCE PO 04/27/20 16:15 04/27/20 16:16 DC 04/27/20 16:48 Fentanyl Citrate (Fentanyl 2ml Vial) 50 mcg 1X ONCE IVP 04/27/20 17:00 04/27/20 17:01 DC 04/27/20 16:55 Ondansetron HCl (Zofran) 4 mg PRN Q8HRS PRN IV NAUSEA/VOMITING 04/27/20 18:00 04/27/20 20:20 DC 04/27/20 19:13 Fentanyl Citrate (Fentanyl 2ml Vial) 50 mcg PRN Q1HR PRN IV PAIN 04/27/20 18:00 04/27/20 20:20 DC 04/27/20 19:36 Amlodipine Besylate (Norvasc) 10 mg DAILY PO 04/28/20 09:00 04/28/20 08:58 Aspirin (Aspirin Chewable) 81 mg DAILY PO 04/28/20 09:00 04/28/20 08:58 Buspirone HCl (Buspar) 5 mg BID PO 04/27/20 21:15 04/27/20 22:45 Divalproex Sodium (Depakote) 1,000 mg BID PO 04/27/20 21:00 04/27/20 21:07 Furosemide (Lasix) 120 mg BID92 PO 04/28/20 09:00 04/28/20 09:00 Hydralazine HCl (Apresoline) 25 mg BID PO 04/27/20 21:00 04/27/20 21:07 Lisinopril (Prinivil) 20 mg DAILY PO 04/28/20 09:00 04/28/20 08:58 Lorazepam (Ativan) 0.5 mg PRN Q8HRS PRN PO anxiety 04/27/20 20:30 04/28/20 09:11 DC 04/27/20 21:07 Oxycodone/ Acetaminophen (Percocet 10/325) 1 tab PRN BID PRN PO SEVERE PAIN 7-10 04/27/20 20:30 04/27/20 21:06 Quetiapine Fumarate (SEROquel) 100 mg QHS PO 04/27/20 21:00 04/27/20 21:07 Carvedilol (Coreg) 12.5 mg BIDWMEALS PO 04/28/20 08:00 04/28/20 08:59 Citalopram Hydrobromide (CeleXA) 40 mg HS PO 04/27/20 21:15 04/27/20 22:45 Diphenhydramine HCl (Benadryl) 25 mg HS PO 04/27/20 21:00 04/27/20 21:07 Ranolazine (Ranexa) 500 mg BID PO 04/27/20 21:15 04/27/20 22:45 Trazodone HCl (Desyrel) 150 mg HS PO 04/27/20 21:00 04/27/20 21:06 Diclofenac Sodium (Voltaren) 1 jv BID TP 04/28/20 09:00 04/27/20 21:14 Heparin Sodium (Porcine) (Heparin Sodium) 5,000 unit Q8HRS SQ 04/27/20 22:00 04/28/20 06:08 Insulin Glargine (Lantus Syringe) 42 unit QHS SQ 04/27/20 21:30 04/27/20 22:54 Fentanyl Citrate (Fentanyl 2ml Vial) 50 mcg PRN Q1HR PRN IVP PAIN 04/27/20 22:30 04/28/20 09:11 DC 04/27/20 22:48 ALLERGIES: Allergies Coded Allergies Type Severity Reaction Last Updated Verified hydromorphone Allergy Severe Anaphylaxis 04/04/20 Yes ROS: Negative for 10 out of 14 systems reviewed unless otherwise mentioned above in HPI. PHYSICAL EXAM: Vital Signs/I&O: Vital Signs Date Time Temp Pulse Resp B/P (MAP) Pulse Ox O2 Delivery O2 Flow Rate FiO2 04/28/20 09:35 Room Air 04/28/20 08:59 75 04/28/20 08:58 160/72 04/28/20 08:00 2.0 04/28/20 07:00 98.1 20 95 98.1 I & O 04/27/20 04/27/20 04/28/20 15:00 23:00 07:00 Intake Total 240 ml Output Total 400 ml Balance -160 ml Physical Exam: The patient appeared well nourished and normally developed. Head exam is unremarkable. No scleral icterus or corneal arcus noted. Neck is without jugular venous distension, thyromegaly, or carotid bruits. Carotid upstrokes are brisk bilaterally. Lungs are clear to auscultation and percussion. Cardiac exam reveals the PMI to be normally sized and situated. Rhythm is regular. First and second heart sounds normal. No murmurs, rubs or gallops. Abdominal exam reveals normal bowel sounds, no masses, no organomegaly and no aortic enlargement. Extremities are nonedematous and both femoral and pedal pulses are normal. Msk: No traumua Neuro: No focal deficits DIAGNOSTIC TESTING: CT scan of the abdomen and pelvis reviewed Cardiac biomarkers are negative EKG is unremarkable, telemetry unremarkable Stress test in 2019 at [facility] reviewed. No significant ischemia repo rted. Echocardiogram from July 2019 with normal LV systolic function. Lab Laboratory Tests Test 04/27/20 16:20 04/27/20 21:15 04/28/20 00:36 04/28/20 07:44 White Blood Count 11.3 x10^3/uL (4.0-11.0) H 9.6 x10^3/uL (4.0-11.0) Red Blood Count 3.60 x10^6/uL (4.30-5.70) L 3.18 x10^6/uL (4.30-5.70) L Hemoglobin 11.6 g/dL (13.0-17.5) L 10.4 g/dL (13.0-17.5) L Hematocrit 34.3 % (39.0-53.0) L 30.1 % (39.0-53.0) L Mean Corpuscular Volume 95 fL (79-100) 95 fL (79-100) Mean Corpuscular Hemoglobin 32 pg (25-35) 33 pg (25-35) Mean Corpuscular Hemoglobin Concent 34 g/dL (31-37) 35 g/dL (31-37) Red Cell Distribution Width 13.5 % (11.5-14.5) 13.6 % (11.5-14.5) Platelet Count 257 x10^3/uL (140-400) 212 x10^3/uL (140-400) Neutrophils (%) (Auto) 71 % (31-73) 60 % (31-73) Lymphocytes (%) (Auto) 15 % (24-48) L 26 % (24-48) Monocytes (%) (Auto) 10 % (0-9) H 10 % (0-9) H Eosinophils (%) (Auto) 3 % (0-3) 3 % (0-3) Basophils (%) (Auto) 1 % (0-3) 0 % (0-3) Neutrophils # (Auto) 8.0 x10^3/uL (1.8-7.7) H 5.8 x10^3/uL (1.8-7.7) Lymphocytes # (Auto) 1.7 x10^3/uL (1.0-4.8) 2.5 x10^3/uL (1.0-4.8) Monocytes # (Auto) 1.2 x10^3/uL (0.0-1.1) H 1.0 x10^3/uL (0.0-1.1) Eosinophils # (Auto) 0.3 x10^3/uL (0.0-0.7) 0.3 x10^3/uL (0.0-0.7) Basophils # (Auto) 0.1 x10^3/uL (0.0-0.2) 0.0 x10^3/uL (0.0-0.2) Prothrombin Time 12.2 SEC (11.7-14.0) Prothromb Time International Ratio 0.9 (0.8-1.1) Sodium Level 134 mmol/L (136-145) L 136 mmol/L (136-145) Potassium Level 4.9 mmol/L (3.5-5.1) 4.5 mmol/L (3.5-5.1) Chloride Level 98 mmol/L (98-107) 100 mmol/L (98-107) Carbon Dioxide Level 28 mmol/L (21-32) 27 mmol/L (21-32) Anion Gap 8 (6-14) 9 (6-14) Blood Urea Nitrogen 53 mg/dL (8-26) H 57 mg/dL (8-26) H Creatinine 6.7 mg/dL (0.7-1.3) H 7.0 mg/dL (0.7-1.3) H Estimated GFR (Cockcroft-Gault) 8.7 8.3 BUN/Creatinine Ratio 8 (6-20) 8 (6-20) Glucose Level 256 mg/dL (70-99) H 199 mg/dL (70-99) H Lactic Acid Level 1.0 mmol/L (0.4-2.0) Calcium Level 8.2 mg/dL (8.5-10.1) L 7.9 mg/dL (8.5-10.1) L Total Bilirubin 0.3 mg/dL (0.2-1.0) 0.3 mg/dL (0.2-1.0) Aspartate Amino Transf (AST/SGOT) 20 U/L (15-37) 19 U/L (15-37) Alkaline Phosphatase 182 U/L (46-116) H 156 U/L (46-116) H Total Protein 7.1 g/dL (6.4-8.2) 5.6 g/dL (6.4-8.2) L Albumin 3.0 g/dL (3.4-5.0) L 2.6 g/dL (3.4-5.0) L Albumin/Globulin Ratio 0.7 (1.0-1.7) L 0.9 (1.0-1.7) L Lipase 1535 U/L (73-393) H 1608 U/L (73-393) H Glucose (Fingerstick) 233 mg/dL (70-99) H 167 mg/dL (70-99) H C-Reactive Protein, Quantitative 45.1 mg/L (0-3.3) H Phosphorus Level 5.9 mg/dL (2.6-4.7) H Test 04/28/20 08:52 04/28/20 09:25 04/28/20 11:55 Glucose (Fingerstick) 192 mg/dL (70-99) H 186 mg/dL (70-99) H O2 Saturation 87 % (92-99) L Arterial Blood pH 7.36 (7.35-7.45) Arterial Blood pCO2 at Patient Temp 44 mmHg (35-46) Arterial Blood pO2 at Patient Temp 58 mmHg (75-108) L Arterial Blood HCO3 24 mmol/L (21-28) Arterial Blood Base Excess -1 mmol/L (-3-3) FiO2 21% Laboratory Tests 04/28/20 00:36 ASSESSMENT: 1. Typical chest pain in the setting of multiple comorbidities, cannot rule out underlying GI issues 2. Coronary artery disease status post bypass with multiple cardiovascular risk factors as noted above PLAN: 1. Given the constant nature of the pain, lack of any elevated biomarkers I suspect this is mostly related to diabetic gastroparesis versus diastolic heart failure nonetheless, given his multiple risk factors we cannot rule out any progressive coronary disease leading to his symptoms. If GI issues have been definitively ruled out then we will pursue invasive coronary angiography tomorrow. Risks and benefits discussed with the patient and his family. 2. Continue home cardiovascular regimen. Aim for systolic blood pressure goal of 140. Thank you for this consultation. KADEN ALTMAN MD Apr 28, 2020 12:10
--- NOTE | 2020-04-28 12:11 | CONS ---
see seperate report MTDD
[2020-04-28 12:27] LABS: BILIRUBIN,URINE NEGATIVE (NEG); CLARITY,URINE CLEAR; COLOR,URINE YELLOW; NITRITE,URINE NEGATIVE (NEG); PH,URINE 5.5 (<5.0-8.0); PROTEIN,URINE >=300 mg/dL (NEG-TRACE); UROBILINOGEN,URINE 0.2 mg/dL (0.2 mg/dL)
[2020-04-28] MEDS: fentaNYL PF VIAL 100 MCG/2 ML VIAL IVP PRN ×4 (12:27→22:14)
[2020-04-28] MEDS: DIVALPROEX DELAYED RELEASE 500 MG TABLET.DR. PO SCH ×2 (12:29→20:06)
[2020-04-28] MEDS: LUBIPROSTONE 24 MCG CAPSULE PO SCH (12:29)
[2020-04-28 12:34] LABS: AMPHETAMINE/METHAMPHETAMINE NEG (NEG); BARBITURATES NEG (NEG); BENZODIAZEPINES NEG (NEG); CANNABINOIDS NEG (NEG); COCAINE NEG (NEG); METHADONE NEG (NEG); OPIATES NEG (NEG); PHENCYCLIDINE NEG (NEG)
[2020-04-28 12:42] LABS: BACTERIA,URINE FEW /HPF (0-FEW); RBC,URINE 0 /HPF (0-2); SQUAMOUS EPITHELIAL CELL,UR OCC /LPF; WBC,URINE OCC /HPF (0-4)
--- NOTE | 2020-04-28 13:28 | NUR ---
SS following for discharge planning. SS reviewed pt chart and discussed with pt RN. Pt is from home and is currently requiring oxygen. Pt has no home oxygen. Pt currently has Peritoneal Dialysis through [facility], ; fax [phone], and has had services with [facility], ; fax [phone]. SS will continue to follow for discharge planning.
--- NOTE | 2020-04-28 14:58 | PDOC2 ---
CONSULT Date of Consult Date of Consult DATE: 04/28/20 TIME: 14:48 Reason for Consult Reason for Consult: ESRD Source Source: Chart review, Patient History of Present Illness Reason for Visit: Pt is a 54 yo cM w/ PMHx smoker, CAD, ischemic CM, ESRD on HD, HTN seizure disorder, DM2, Narcotic use who presents with epigastric and chest pain radiating to his back since the past 4 days. Notes band-like squeezing chest pain that radiates to the back. He states he also has some shortness of breath with a cough also. He also complains of distended abdomen and nausea and abdominal pain that is in the bilateral upper quadrants. He is s/p PD cath placement 04/04/2020 with no symptoms of peritonitis. Last week he was started on PD training at the clinic , recd HD on Tuesday He rates his pain was 10 out of 10. He has been feeling pain after eating so has not eaten today or taken any meds, including his pain medications. Negative COVID-19 on March 12, 2020. Denies fever, vomiting, diarrhea, dizziness, syncope, headache, vision changes, focal weakness, numbness or tingling and no recent travel or sick contacts. He has had previous hospitalizations and was on Hospice at one time- his own decision Past Medical History Cardiovascular: CAD, CHF, HTN, Hyperlipidemia, Other Pulmonary: Bronchitis, Pulmonary embolus, Pneumonia, Other CENTRAL NERVOUS SYSTEM: CVA, Periperal neuropathy, Other GI: GERD, Other Heme/Onc: Cancer Psych: Depression Renal/: Chronic renal failure Endocrine: Diabetes, Hyperparathyroidism Past Surgical History Past Surgical History: Cholecystectomy, CABG, Tonsillectomy, Other Family History Family History: Kidney Disease Social History <1 pack per day Drugs: Cocaine (+07/2018) Lives: with Family Current Problem List Problem List Problems Medical Problems: (1) Chest pain Status: Acute Current Medications Current Medications Current Medications Aspirin (Katie Aspirin) 325 mg 1X ONCE PO Last administered on 04/27/20at 16:48; Start 04/27/20 at 16:15; Stop 04/27/20 at 16:16; Status DC Fentanyl Citrate (Fentanyl 2ml Vial) 50 mcg 1X ONCE IVP Last administered on 04/27/20at 16:55; Start 04/27/20 at 17:00; Stop 04/27/20 at 17:01; Status DC Ondansetron HCl (Zofran) 4 mg PRN Q8HRS PRN IV NAUSEA/VOMITING Last administered on 04/27/20at 19:13; Start 04/27/20 at 18:00; Stop 04/27/20 at 20:20; Status DC Fentanyl Citrate (Fentanyl 2ml Vial) 50 mcg PRN Q1HR PRN IV PAIN Last administered on 04/27/20at 19:36; Start 04/27/20 at 18:00; Stop 04/27/20 at 20:20; Status DC Ondansetron HCl (Zofran) 4 mg PRN Q4HRS PRN IV NAUSEA/VOMITING; Start 04/27/20 at 20:30 Insulin Human Lispro (HumaLOG) 0-7 UNITS TIDACHC SQ ; Start 04/27/20 at 21:15 Dextrose (Dextrose 50%-Water Syringe) 12.5 gm PRN Q15MIN PRN IV SEE COMMENTS; Start 04/27/20 at 20:30 Amlodipine Besylate (Norvasc) 10 mg DAILY PO Last administered on 04/28/20at 08:58; Start 04/28/20 at 09:00 Aspirin (Aspirin Chewable) 81 mg DAILY PO Last administered on 04/28/20at 08:58; Start 04/28/20 at 09:00 Buspirone HCl (Buspar) 5 mg BID PO Last administered on 04/27/20at 22:45; Start 04/27/20 at 21:15 Divalproex Sodium (Depakote) 1,000 mg BID PO Last administered on 04/28/20at 12:29; Start 04/27/20 at 21:00 Docusate Sodium (Colace) 100 mg DAILY PO ; Start 04/28/20 at 09:00 Vitamin B Complex/ Vitamin C (Gissel-Irvin) 1 tab DAILY PO ; Start 04/28/20 at 09:00 Furosemide (Lasix) 120 mg BID92 PO Last administered on 04/28/20at 09:00; Start 04/28/20 at 09:00 Hydralazine HCl (Apresoline) 25 mg BID PO Last administered on 04/27/20at 21:07; Start 04/27/20 at 21:00 Lisinopril (Prinivil) 20 mg DAILY PO Last administered on 04/28/20at 08:58; Start 04/28/20 at 09:00 Lorazepam (Ativan) 0.5 mg PRN Q8HRS PRN PO anxiety Last administered on 04/27/20 at 21:07; Start 04/27/20 at 20:30; Stop 04/28/20 at 09:11; Status DC Lubiprostone (Amitiza) 24 mcg DAILY PO Last administered on 04/28/20at 12:29; Start 04/28/20 at 09:00 Nitroglycerin (Nitrostat) 0.4 mg PRN Q5MIN PRN SL CHEST PAIN; Start 04/27/20 at 20:30 Ondansetron HCl (Zofran Odt) 4 mg PRN Q4HRS PRN PO NAUSEA; Start 04/27/20 at 20:30; Status Cancel Oxycodone/ Acetaminophen (Percocet 10/325) 1 tab PRN BID PRN PO SEVERE PAIN 7- 10 Last administered on 04/27/20at 21:06; Start 04/27/20 at 20:30 Quetiapine Fumarate (SEROquel) 100 mg QHS PO Last administered on 04/27/20at 21:07; Start 04/27/20 at 21:00 Sevelamer Carbonate (Renvela) 800 mg TIDWMEALS PO ; Start 04/28/20 at 08:00 Carvedilol (Coreg) 12.5 mg BIDWMEALS PO Last administered on 04/28/20at 08:59; Start 04/28/20 at 08:00 Citalopram Hydrobromide (CeleXA) 40 mg HS PO Last administered on 04/27/20at 22:45; Start 04/27/20 at 21:15 Diphenhydramine HCl (Benadryl) 25 mg HS PO Last administered on 04/27/20at 21:07; Start 04/27/20 at 21:00 Non-Formulary Medication (Insulin Degludec (Tresiba)) 42 unit QHS SQ ; Start 04/27/20 at 21:00; Status UNV Ondansetron HCl (Zofran Odt) 4 mg PRN Q8HRS PRN PO NAUSEA/VOMITING; Start 04/27/20 at 21:00 Pantoprazole Sodium (Protonix) 40 mg DAILYAC PO ; Start 04/28/20 at 07:30; Stop 04/28/20 at 11:08; Status DC Ranolazine (Ranexa) 500 mg BID PO Last administered on 04/27/20at 22:45; Start 04/27/20 at 21:15 Trazodone HCl (Desyrel) 150 mg HS PO Last administered on 04/27/20at 21:06; Start 04/27/20 at 21:00 Diclofenac Sodium (Voltaren) 1 christo BID TP Last administered on 04/27/20at 21:14; Start 04/28/20 at 09:00 Psyllium Hydrophilic Mucilloid (Metamucil Fiber Packet) 1 pkt QHS PO ; Start 04/27/20 at 21:15 Polyethylene Glycol (miraLAX PACKET) 17 gm QHS PO ; Start 04/27/20 at 21:00 Bisacodyl (Dulcolax Supp) 10 mg PRN DAILY PRN HI CONSTIPATION; Start 04/27/20 at 21:00; Status UNV Lactulose (Lactulose) 20 gm PRN DAILY PRN PO CONSTIPATION; Start 04/27/20 at 21:00 Heparin Sodium (Porcine) (Heparin Sodium) 5,000 unit Q8HRS SQ Last administered on 04/28/20at 06:08; Start 04/27/20 at 22:00 Hydralazine HCl (Apresoline Inj) 10 mg PRN Q4HRS PRN IVP ELEVATED BP, SEE COM MENTS; Start 04/27/20 at 21:00 Insulin Glargine (Lantus Syringe) 42 unit QHS SQ Last administered on 04/27/20at 22:54; Start 04/27/20 at 21:30 Fentanyl Citrate (Fentanyl 2ml Vial) 50 mcg PRN Q1HR PRN IVP PAIN Last administered on 04/27/20at 22:48; Start 04/27/20 at 22:30; Stop 04/28/20 at 09:11; Status DC Fentanyl Citrate (Fentanyl 2ml Vial) 50 mcg PRN Q2HRS PRN IVP MODERATE TO S EVERE PAIN Last administered on 04/28/20at 12:27; Start 04/28/20 at 09:15 Lorazepam (Ativan) 0.5 mg PRN DAILY PRN PO anxiety; Start 6/30/20 at 08:30 Pantoprazole Sodium (PROTONIX VIAL for IV PUSH) 40 mg DAILYAC IVP Last administered on 04/28/20at 12:25; Start 04/28/20 at 11:30 Active Scripts Active Ondansetron Odt (Ondansetron) 4 Mg Tab.rapdis 1 Tab PO PRN Q6-8HRS PRN Percocet 10-325 Mg Tablet (Oxycodone/Acetaminophen) 1 Each Tablet 1 Tab PO PRN BID PRN MDD 2 Tablet(s) 5 Days [Diclofenac Sodium] 100 GM Gel..gram. 1 Christo TP BID 30 Days Reported Renal-Irvin Tablet (Folic Acid/Vit Bcomp,C) 0.8 Mg Tablet 0.8 Mg PO DAILY Novolog (Insulin Aspart) 100 Unit/1 Ml Vial 0 SQ PRN TID PRN Ibuprofen 600 Mg Tablet 600 Mg PO PRN Q12HR PRN Diphenhydramine Hcl 25 Mg Tablet 25 Mg PO QHS Furosemide 80 Mg Tablet 120 Mg PO BID Tresiba (Insulin Degludec) 100 Unit/1 Ml Vial 42 Unit SQ DAILY Ativan (Lorazepam) 1 Mg Tablet 0.5 Mg PO Q4HRS Percocet 10-325 Mg Tablet (Oxycodone/Acetaminophen) 1 Each Tablet 1 Tab PO BID Buspirone Hcl 5 Mg Tablet 5 Mg PO BID Lisinopril 20 Mg Tablet 20 Mg PO DAILY Zofran (Ondansetron Hcl) 4 Mg Tablet 1 Tab PO PRN Q4HRS PRN NITROGLYCERIN SubLingual (Nitroglycerin) 0.4 Mg Tab.subl 0.4 Mg SL PRN Q5MIN PRN Hydralazine Hcl 25 Mg Tablet 1 Tab PO BID Gabapentin 400 Mg Capsule 400 Mg PO BID Citalopram Hbr (Citalopram Hydrobromide) 40 Mg Tablet 40 Mg PO HS Cyclobenzaprine Hcl 10 Mg Tablet 1 Tab PO TID PRN PRN Ranexa (Ranolazine) 1,000 Mg Tab.er.12h 0.5 Tab PO BID Seroquel (Quetiapine Fumarate) 100 Mg Tablet 1 Tab PO QHS Protonix (Pantoprazole Sodium) 20 Mg Tablet.dr 40 Mg PO DAILY Docusate Sodium 100 Mg Capsule 1 Cap PO DAILY Divalproex Sodium 500 Mg Tablet.dr 2 Tab PO BID Aspirin 81 Mg Tab.chew 1 Tab PO DAILY Amitiza (Lubiprostone) 24 Mcg Capsule 1 Cap PO DAILY Norvasc (Amlodipine Besylate) 10 Mg Tablet 10 Mg PO DAILY Coreg (Carvedilol) 25 Mg Tablet 12.5 Mg PO BIDWMEALS Metolazone 5 Mg Tablet 5 Mg PO DAILY Renvela (Sevelamer Carbonate) 800 Mg Tablet 800 Mg PO TIDWMEALS Trazodone Hcl 300 Mg Tablet 150 Mg PO HS Allergies Allergies: Coded Allergies: hydromorphone (Verified Allergy, Severe, Anaphylaxis, 04/04/20) morphine ok ROS Review of System Per HPI Physical Exam Physical Exam GENERAL: NAD HEENT: OM moist NECK: supple CARDIOVASCULAR: S1, S2. LUNGS: Diminished breath sounds at the base ABDOMEN: Soft, obese , PD catheter in place : No Hale. EXTREMITIES: no edema NEURO- Grossly normal DERM No Rash : Vital Signs Vital Signs Date Time Temp Pulse Resp B/P (MAP) Pulse Ox O2 Delivery O2 Flow Rate FiO2 04/28/20 12:57 Room Air 04/28/20 11:00 98.6 75 20 147/69 (95) 96 4.0 98.6 Assessment & Plan ESRD:On TTS under Dr Hernandez Last HD was on Sat, transitioning to PD - Started training last week No indication for HD today Chest pain - cardiology consulted Diabetes, insulin-dependent. Chronic pain syndrome- has been on narcotics Hx of CAD s/p CABG Chronic congestive heart failure Hx of Depression. History of previous hip fracture from fall, left femoral fracture, had surgeries done for that. Anemia: No indication for CHLOE HTN- Hypotensive at presentation, stable currently History of drug overdose with both morphine as well as fentanyl. Seizure disorder. Labs Labs Laboratory Tests Test 04/27/20 16:20 04/27/20 21:15 04/28/20 00:36 04/28/20 03:57 White Blood Count 11.3 x10^3/uL (4.0-11.0) 9.6 x10^3/uL (4.0-11.0) Red Blood Count 3.60 x10^6/uL (4.30-5.70) 3.18 x10^6/uL (4.30-5.70) Hemoglobin 11.6 g/dL (13.0-17.5) 10.4 g/dL (13.0-17.5) Hematocrit 34.3 % (39.0-53.0) 30.1 % (39.0-53.0) Mean Corpuscular Volume 95 fL (79-100) 95 fL (79-100) Mean Corpuscular Hemoglobin 32 pg (25-35) 33 pg (25-35) Mean Corpuscular Hemoglobin Concent 34 g/dL (31-37) 35 g/dL (31-37) Red Cell Distribution Width 13.5 % (11.5-14.5) 13.6 % (11.5-14.5) Platelet Count 257 x10^3/uL (140-400) 212 x10^3/uL (140-400) Neutrophils (%) (Auto) 71 % (31-73) 60 % (31-73) Lymphocytes (%) (Auto) 15 % (24-48) 26 % (24-48) Monocytes (%) (Auto) 10 % (0-9) 10 % (0-9) Eosinophils (%) (Auto) 3 % (0-3) 3 % (0-3) Basophils (%) (Auto) 1 % (0-3) 0 % (0-3) Neutrophils # (Auto) 8.0 x10^3/uL (1.8-7.7) 5.8 x10^3/uL (1.8-7.7) Lymphocytes # (Auto) 1.7 x10^3/uL (1.0-4.8) 2.5 x10^3/uL (1.0-4.8) Monocytes # (Auto) 1.2 x10^3/uL (0.0-1.1) 1.0 x10^3/uL (0.0-1.1) Eosinophils # (Auto) 0.3 x10^3/uL (0.0-0.7) 0.3 x10^3/uL (0.0-0.7) Basophils # (Auto) 0.1 x10^3/uL (0.0-0.2) 0.0 x10^3/uL (0.0-0.2) Prothrombin Time 12.2 SEC (11.7-14.0) Prothromb Time International Ratio 0.9 (0.8-1.1) Sodium Level 134 mmol/L (136-145) 136 mmol/L (136-145) Potassium Level 4.9 mmol/L (3.5-5.1) 4.5 mmol/L (3.5-5.1) Chloride Level 98 mmol/L (98-107) 100 mmol/L (98-107) Carbon Dioxide Level 28 mmol/L (21-32) 27 mmol/L (21-32) Anion Gap 8 (6-14) 9 (6-14) Blood Urea Nitrogen 53 mg/dL (8-26) 57 mg/dL (8-26) Creatinine 6.7 mg/dL (0.7-1.3) 7.0 mg/dL (0.7-1.3) Estimated GFR (Cockcroft-Gault) 8.7 8.3 BUN/Creatinine Ratio 8 (6-20) 8 (6-20) Glucose Level 256 mg/dL (70-99) 199 mg/dL (70-99) Lactic Acid Level 1.0 mmol/L (0.4-2.0) Calcium Level 8.2 mg/dL (8.5-10.1) 7.9 mg/dL (8.5-10.1) Total Bilirubin 0.3 mg/dL (0.2-1.0) 0.3 mg/dL (0.2-1.0) Aspartate Amino Transf (AST/SGOT) 20 U/L (15-37) 19 U/L (15-37) Alanine Aminotransferase (ALT/SGPT) 24 U/L (16-63) 25 U/L (16-63) Alkaline Phosphatase 182 U/L (46-116) 156 U/L (46-116) Troponin I Quantitative < 0.017 ng/mL (0.000-0.055) < 0.017 ng/mL (0.000-0.055) < 0.017 ng/mL (0.000-0.055) FK-Srq-Z-Type Natriuretic Peptide 92922 pg/mL (0-124) Total Protein 7.1 g/dL (6.4-8.2) 5.6 g/dL (6.4-8.2) Albumin 3.0 g/dL (3.4-5.0) 2.6 g/dL (3.4-5.0) Albumin/Globulin Ratio 0.7 (1.0-1.7) 0.9 (1.0-1.7) Lipase 1535 U/L (73-393) 1608 U/L (73-393) Glucose (Fingerstick) 233 mg/dL (70-99) C-Reactive Protein, Quantitative 45.1 mg/L (0-3.3) Phosphorus Level 5.9 mg/dL (2.6-4.7) Test 04/28/20 07:44 04/28/20 08:52 04/28/20 09:25 04/28/20 11:55 Glucose (Fingerstick) 167 mg/dL (70-99) 192 mg/dL (70-99) 186 mg/dL (70-99) O2 Saturation 87 % (92-99) Arterial Blood pH 7.36 (7.35-7.45) Arterial Blood pCO2 at Patient Temp 44 mmHg (35-46) Arterial Blood pO2 at Patient Temp 58 mmHg (75-108) Arterial Blood HCO3 24 mmol/L (21-28) Arterial Blood Base Excess -1 mmol/L (-3-3) FiO2 21% Test 04/28/20 12:15 Urine Collection Type Unknown Urine Color Yellow Urine Clarity Clear Urine pH 5.5 (<5.0-8.0) Urine Specific [place] 1.015 (1.000-1.030) Urine Protein >=300 mg/dL (NEG-TRACE) Urine Glucose (UA) 250 mg/dL (NEG) Urine Ketones (Stick) Negative mg/dL (NEG) Urine Blood Negative (NEG) Urine Nitrite Negative (NEG) Urine Bilirubin Negative (NEG) Urine Urobilinogen Dipstick 0.2 mg/dL (0.2 mg/dL) Urine Leukocyte Esterase Negative (NEG) Urine RBC 0 /HPF (0-2) Urine WBC Occ /HPF (0-4) Urine Squamous Epithelial Cells Occ /LPF Urine Bacteria Few /HPF (0-FEW) Urine Mucus Slight /LPF Urine Opiates Screen Neg (NEG) Urine Methadone Screen Neg (NEG) Urine Barbiturates Neg (NEG) Urine Phencyclidine Screen Neg (NEG) Urine Amphetamine/Methamphetamine Neg (NEG) Urine Benzodiazepines Screen Neg (NEG) Urine Cocaine Screen Neg (NEG) Urine Cannabinoids Screen Neg (NEG) Urine Ethyl Alcohol Neg (NEG) Laboratory Tests Test 04/27/20 16:20 04/27/20 21:15 04/28/20 00:36 04/28/20 03:57 White Blood Count 11.3 x10^3/uL (4.0-11.0) 9.6 x10^3/uL (4.0-11.0) Red Blood Count 3.60 x10^6/uL (4.30-5.70) 3.18 x10^6/uL (4.30-5.70) Hemoglobin 11.6 g/dL (13.0-17.5) 10.4 g/dL (13.0-17.5) Hematocrit 34.3 % (39.0-53.0) 30.1 % (39.0-53.0) Mean Corpuscular Volume 95 fL (79-100) 95 fL (79-100) Mean Corpuscular Hemoglobin 32 pg (25-35) 33 pg (25-35) Mean Corpuscular Hemoglobin Concent 34 g/dL (31-37) 35 g/dL (31-37) Red Cell Distribution Width 13.5 % (11.5-14.5) 13.6 % (11.5-14.5) Platelet Count 257 x10^3/uL (140-400) 212 x10^3/uL (140-400) Neutrophils (%) (Auto) 71 % (31-73) 60 % (31-73) Lymphocytes (%) (Auto) 15 % (24-48) 26 % (24-48) Monocytes (%) (Auto) 10 % (0-9) 10 % (0-9) Eosinophils (%) (Auto) 3 % (0-3) 3 % (0-3) Basophils (%) (Auto) 1 % (0-3) 0 % (0-3) Neutrophils # (Auto) 8.0 x10^3/uL (1.8-7.7) 5.8 x10^3/uL (1.8-7.7) Lymphocytes # (Auto) 1.7 x10^3/uL (1.0-4.8) 2.5 x10^3/uL (1.0-4.8) Monocytes # (Auto) 1.2 x10^3/uL (0.0-1.1) 1.0 x10^3/uL (0.0-1.1) Eosinophils # (Auto) 0.3 x10^3/uL (0.0-0.7) 0.3 x10^3/uL (0.0-0.7) Basophils # (Auto) 0.1 x10^3/uL (0.0-0.2) 0.0 x10^3/uL (0.0-0.2) Prothrombin Time 12.2 SEC (11.7-14.0) Prothromb Time International Ratio 0.9 (0.8-1.1) Sodium Level 134 mmol/L (136-145) 136 mmol/L (136-145) Potassium Level 4.9 mmol/L (3.5-5.1) 4.5 mmol/L (3.5-5.1) Chloride Level 98 mmol/L (98-107) 100 mmol/L (98-107) Carbon Dioxide Level 28 mmol/L (21-32) 27 mmol/L (21-32) Anion Gap 8 (6-14) 9 (6-14) Blood Urea Nitrogen 53 mg/dL (8-26) 57 mg/dL (8-26) Creatinine 6.7 mg/dL (0.7-1.3) 7.0 mg/dL (0.7-1.3) Estimated GFR (Cockcroft-Gault) 8.7 8.3 BUN/Creatinine Ratio 8 (6-20) 8 (6-20) Glucose Level 256 mg/dL (70-99) 199 mg/dL (70-99) Lactic Acid Level 1.0 mmol/L (0.4-2.0) Calcium Level 8.2 mg/dL (8.5-10.1) 7.9 mg/dL (8.5-10.1) Total Bilirubin 0.3 mg/dL (0.2-1.0) 0.3 mg/dL (0.2-1.0) Aspartate Amino Transf (AST/SGOT) 20 U/L (15-37) 19 U/L (15-37) Alanine Aminotransferase (ALT/SGPT) 24 U/L (16-63) 25 U/L (16-63) Alkaline Phosphatase 182 U/L (46-116) 156 U/L (46-116) Troponin I Quantitative < 0.017 ng/mL (0.000-0.055) < 0.017 ng/mL (0.000-0.055) < 0.017 ng/mL (0.000-0.055) CL-Uhl-E-Type Natriuretic Peptide 13689 pg/mL (0-124) Total Protein 7.1 g/dL (6.4-8.2) 5.6 g/dL (6.4-8.2) Albumin 3.0 g/dL (3.4-5.0) 2.6 g/dL (3.4-5.0) Albumin/Globulin Ratio 0.7 (1.0-1.7) 0.9 (1.0-1.7) Lipase 1535 U/L (73-393) 1608 U/L (73-393) Glucose (Fingerstick) 233 mg/dL (70-99) C-Reactive Protein, Quantitative 45.1 mg/L (0-3.3) Phosphorus Level 5.9 mg/dL (2.6-4.7) Test 04/28/20 07:44 04/28/20 08:52 04/28/20 09:25 04/28/20 11:55 Glucose (Fingerstick) 167 mg/dL (70-99) 192 mg/dL (70-99) 186 mg/dL (70-99) O2 Saturation 87 % (92-99) Arterial Blood pH 7.36 (7.35-7.45) Arterial Blood pCO2 at Patient Temp 44 mmHg (35-46) Arterial Blood pO2 at Patient Temp 58 mmHg (75-108) Arterial Blood HCO3 24 mmol/L (21-28) Arterial Blood Base Excess -1 mmol/L (-3-3) FiO2 21% Test 04/28/20 12:15 Urine Collection Type Unknown Urine Color Yellow Urine Clarity Clear Urine pH 5.5 (<5.0-8.0) Urine Specific [place] 1.015 (1.000-1.030) Urine Protein >=300 mg/dL (NEG-TRACE) Urine Glucose (UA) 250 mg/dL (NEG) Urine Ketones (Stick) Negative mg/dL (NEG) Urine Blood Negative (NEG) Urine Nitrite Negative (NEG) Urine Bilirubin Negative (NEG) Urine Urobilinogen Dipstick 0.2 mg/dL (0.2 mg/dL) Urine Leukocyte Esterase Negative (NEG) Urine RBC 0 /HPF (0-2) Urine WBC Occ /HPF (0-4) Urine Squamous Epithelial Cells Occ /LPF Urine Bacteria Few /HPF (0-FEW) Urine Mucus Slight /LPF Urine Opiates Screen Neg (NEG) Urine Methadone Screen Neg (NEG) Urine Barbiturates Neg (NEG) Urine Phencyclidine Screen Neg (NEG) Urine Amphetamine/Methamphetamine Neg (NEG) Urine Benzodiazepines Screen Neg (NEG) Urine Cocaine Screen Neg (NEG) Urine Cannabinoids Screen Neg (NEG) Urine Ethyl Alcohol Neg (NEG) Review All relevant outside records, renal labs, imaging studies, telemetry/EKG's were reviewed. Images Images CT abdomen/Pelvis-- The appendix is not well seen however there is a small tubular structure posterior to the cecum which could be a normal appendix. There is a percutaneous catheter coiled in the right hemipelvis anteriorly which was seen previous and is presumably for hemodialysis. There is mild free fluid in the pelvis. Linear opacities in the left lung base are seen previously could be discoid atelectasis or scar. There is beam [place] artifact due to hardware from prior repair of a right hip fracture. Liver: Normal. Spleen: Normal. Pancreas: Normal. Adrenal Glands: Normal. Kidneys: Normal. There is no free air or free fluid. There is no lymphadenopathy. The urinary bladder is partially collapsed. Apparent mild wall thickening could be secondary to hypertrophy. There is no pericolonic inflammation identified. Impression: Mild free fluid the pelvis could be secondary to peritoneal dialysis. Otherwise no acute findings. CXR-- Sternotomy wires are noted. The cardiomediastinal silhouette and pulmonary vessels are within normal limits. Strandy opacities at the left lung base. No pleural effusion. IMPRESSION: Left basilar atelectasis. JEAN PAUL CESPEDES MD Apr 28, 2020 14:58
[2020-04-28 15:00] VITALS: BP 129/61
[2020-04-28] MEDS: oxyCODONE/APAP 10/325 1 TAB TABLET PO PRN (16:22)
[2020-04-28 19:43] VITALS: BP 175/78
[2020-04-28] MEDS: PSYLLIUM HUSK (SUGAR FREE) 1 PKT PACKET PO SCH (20:05)
[2020-04-28] MEDS: traZODone 50 MG TABLET. PO SCH (20:05)
[2020-04-28] MEDS: QUEtiapine 100 MG TABLET. PO SCH (20:06)
[2020-04-28] MEDS: CITALOPRAM 20 MG TABLET. PO SCH (20:06)
[2020-04-28] MEDS: diphenhydrAMINE HCL 25 MG CAPSULE PO SCH (20:06)
[2020-04-28] MEDS: POLYETHYLENE GLYCOL 3350 17 GM PACKET. PO SCH (20:11)
[2020-04-28] MEDS: INSULIN GLARGINE SYRINGE. SQ SCH (20:12)
--- NOTE | 2020-04-28 20:12 | NUR ---
lantus 20 units given per pt request. verified by stevie james.
[2020-04-28] MEDS: DICLOFENAC SODIUM 1% TOPICAL GEL 100GM TUBE. TP SCH (20:13)
[2020-04-28] MEDS: hydrALAZINE 20 MG/ML VIAL. IVP PRN (22:19)
[2020-04-28 22:25] VITALS: BP 192/87
[2020-04-29] VITALS (7 sets, daily range): BP systolic 127–192; BP diastolic 59–81
[2020-04-29] MEDS: fentaNYL PF VIAL 100 MCG/2 ML VIAL IVP PRN ×6 (00:31→21:19)
[2020-04-29] MEDS: HEPARIN for SUB-Q USE 5,000 UNIT/ML VIAL. SQ SCH ×3 (05:01→21:36)
[2020-04-29] MEDS ORDERED: PANTOPRAZOLE IV PUSH 40 MG VIAL. IVP SCH (07:30)
[2020-04-29] MEDS: INSULIN LISPRO 300 UNITS/3 ML VIAL. SQ SCH ×4 (07:30→21:00)
[2020-04-29] MEDS ORDERED: IODIXANOL 320 MG/ML 100 ML VIAL. ONE ×2 (07:42→09:32)
[2020-04-29] MEDS ORDERED: LIDOCAINE 1% Multi-Dose 20 ML VIAL. ONE (07:42)
[2020-04-29] MEDS ORDERED: HEPARIN for ARTERIAL LINE 1,500 ML ONE (07:42)
[2020-04-29] MEDS: oxyCODONE/APAP 10/325 1 TAB TABLET PO PRN ×2 (07:54→21:25)
[2020-04-29] MEDS: CARVEDILOL 12.5 MG TABLET. PO SCH ×2 (07:56→17:53)
[2020-04-29] MEDS: amLODIPine BESYLATE 10 MG TABLET PO SCH (07:56)
[2020-04-29] MEDS: ASPIRIN CHEWABLE 81 MG TABLET. PO SCH (07:56)
[2020-04-29] MEDS: LISINOPRIL 20 MG TABLET PO SCH (07:57)
[2020-04-29] MEDS ORDERED: IV NORMAL SALINE 1000ML BAG 1,000 ML IV PRN ×2 (08:16)
[2020-04-29] MEDS ORDERED: DIALYSIS PATIENT. MC PRN ×2 (08:30)
[2020-04-29] MEDS ORDERED: diphenhydrAMINE 50 MG/ML VIAL IV PRN ×2 (08:30)
[2020-04-29 08:35] LABS: CALCIUM 8.3 mg/dL (8.5-10.1); CREATININE 8.2 mg/dL (0.7-1.3); GFR 6.9; POTASSIUM 4.6 mmol/L (3.5-5.1)
[2020-04-29] MEDS ORDERED: fentaNYL PF VIAL 100 MCG/2 ML VIAL ONE (08:43)
[2020-04-29] MEDS ORDERED: MIDAZOLAM HCL/PF 5 MG/5 ML VIAL. ONE (08:43)
[2020-04-29] MEDS: busPIRone 5 MG TABLET. PO SCH ×2 (09:00→21:43)
[2020-04-29] MEDS: hydrALAZINE 25 MG TABLET PO SCH ×2 (09:00→21:43)
[2020-04-29] MEDS: FUROSEMIDE 80 MG TABLET. PO SCH ×2 (09:00→15:55)
[2020-04-29] MEDS: DICLOFENAC SODIUM 1% TOPICAL GEL 100GM TUBE. TP SCH ×2 (09:00→21:37)
[2020-04-29] MEDS: DIVALPROEX DELAYED RELEASE 500 MG TABLET.DR. PO SCH ×2 (09:00→21:22)
[2020-04-29] MEDS: RANOLAZINE 500 MG TAB.ER.12H PO SCH ×2 (09:00→21:20)
[2020-04-29] MEDS ORDERED: MIDAZOLAM HCL/PF 5 MG/5 ML VIAL. IV ONE (09:15)
[2020-04-29] MEDS ORDERED: LIDOCAINE 1% Multi-Dose 20 ML VIAL. INJ ONE (09:15)
[2020-04-29] MEDS ORDERED: IODIXANOL 320 MG/ML 100 ML VIAL. IART ONE (09:15)
[2020-04-29] MEDS ORDERED: fentaNYL PF VIAL 100 MCG/2 ML VIAL IV ONE (09:15)
--- NOTE | 2020-04-29 09:50 | PDOC ---
PROGRESS NOTES Chief Complaint Chief Complaint IMPRESSION Atypical CP - neg trop and negative EKG. Likely costochondritis and possibly pancreatitis, but with his cardiac history and largely elevated BNP, will consult cardiology Elevated lipase - with his symptoms it is unclear if this is pancreatitis, no remarks on CT abdomen, though it was a non-contrast study. S/p ciaran, has elevated alk phos, will consult GI for recs CAD s/p CABG. Cath 2016 with patent grafts LV dysfunction with ejection fraction of 45% and distal anterior, apical and distal inferior hypokinesis. HTN - will cont meds BP disorder - on seroquel Seizures - on depakote Acute on chronic diastolic CHF; Echo 07/19 with preserved LV systolic function - will diurese, still makes some urine, likely gained weight 2/2 starting PD, will need UF Hyperlipidemia - cont statin Diabetes, II--insulin dependent - will cont 42u glargine and sliding scale ESRD on HD - transitioning to PD, will consult nephrology Large weight gain - dry weight previously 110kg, now 130kg, possibly related to new PD status, will consult nephrology for further recs. FEN - Renal ADA PPX - heparin FULL CODE Dispo - inpatient for 2 midnights CATH 04/29 D/W RN in dialysis History of Present Illness History of Present Illness Mr Bedolla 54 yo M w/ PMHx smoker, CAD, ischemic CM, ESRD on HD, BP disorder, seizure disorder, DM2, HTN who presents with epigastric chest pain radiating to his back since the past 4 days. Notes band-like squeezing chest pain that radiates to the back. He states he also has some shortness of breath with a cough also. He also complains of distended abdomen and nausea and abdominal pain that is in the bilateral upper quadrants. He is s/p PD cath placement 04/04/2020 with no signs of peritonitis. 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 He rates his pain a 10 out of 10. He has been feeling pain after eating so has not eaten today or taken any meds, including his pain medications. Negative COVID-19 on March 12, 2020. Denies fever, vomiting, diarrhea, dizziness, syncope, headache, vision changes, focal weakness, numbness or tingling and no r ecent travel or sick contacts. He relates to me he was on hospice until 3 months ago. Weight up 20kg from dry weight of 110kg. Cardiac workup negative in ED. cxr concerning for Left basilar atelectasis. CT abdomen with pelvic fluid and PD catheter. Labs: WBC 11.3, Hb 11.6, Platelets 267, Na 134, K 4.9, BUN 53, Cr 6.7, Glucose 256, BNP 28793, AST 20, ALT 24, Alk phos 182, Lipase 1535, albumin 3. normal trop. normal INR 0.9, lactate 1. Admitted for further treatment Lipase up to 1608. multiple doses of fentanyl and oxycodone as well as ativan No SOB. Still c/o back pain 4/10 and abdominal pain 2/10. Vitals Vitals Vital Signs Date Time Temp Pulse Resp B/P (MAP) Pulse Ox O2 Delivery O2 Flow Rate FiO2 04/29/20 09:46 69 18 96 Nasal Cannula 2.0 04/29/20 07:57 131/63 04/29/20 07:00 97.8 97.8 Physical Exam General: Alert, Oriented X3, Cooperative, No acute distress Heart: Regular rate, Normal S1 Lungs: Clear Abdomen: Normal bowel sounds, Soft, No hepatosplenomegaly, No masses, Other (bilateral upper quadrant and epigastric tenderness. PD catheter clean dry, intact.) Extremities: No clubbing, No cyanosis, No edema, Normal pulses, No tenderness/swelling Skin: No rashes, No breakdown, No significant lesion Labs LABS Technologist: CHEY HENRIQUEZ RTR Nurse: Brigida Morales R.N. Procedure(s) performed: MODERATE SEDATION TIME: 42 MINUTES FLUORO TIME: 5.4 MIN DOSE: 118 GYCM2 CONTRAST: 151 CC VISI LHC, Coronary angiography, Bypass angiography HISTORY The patient is a 54 year-old with a history of : coronary artery disease, tobacco history() , hypertension, dyslipidemia. INDICATION The indication(s) include : unstable angina . [facility] Clinical Frailty Scale [facility] Clinical Frailty Scale: Moderately Frail Heart Failure Heart Failure: Yes If Yes, Newly Diagnosed: No If Yes, HF Type: Systolic If Yes, NYHA Class: Class II PROCEDURE NARRATIVE Clinical information: 54-year-old man with multiple risk factors including prior coronary artery bypass grafting presenting with persistent exertional chest pain and dyspnea. He also had atypical symptoms suggestive of GERD. After GI evaluation it was felt that his gastroesophageal reflux disease was well controlled and therefore due to persistent symptoms he was evaluated for progressive coronary disease Informed consent: Written informed consent was obtained from the patient. Procedure details: Access: Under 2% lidocaine local anesthesia a 6 [place] sheath was placed in the right common femoral artery. Diagnostic angiography: A JL4, JR4, IRINA, LCB catheters were used to engage the [place] coronary arteries and bypass vessels. Left ventriculography was performed with a pigtail catheter and pullback was performed after LVEDP measurement. Findings: Aorta: 110/80 LVEDP 11 Coronary angiography: Left main is a large-caliber vessel with a long tapered mid to distal 50% stenosis. LAD is a moderate caliber vessel with proximal to mid long 70 to 80% stenosis. The distal vessel seen to fill via a IRINA graft but the vessel is small in caliber and moderately diffusely diseased. Ramus is a small caliber vessel with a proximal 80% stenosis The first diagonal is a small to moderate caliber vessel with proximal 70% stenosis Left circumflex is a moderate caliber vessel with a ostial and proximal 70% stenosis. OM1 is a small to moderate caliber vessel with mild luminal irregularities. The distal vessel seen to fill via competitive flow from the saphenous vein graft RCA is a large caliber vessel with severe proximal to mid 80 to 90% stenosis. The distal vessels are seen to fill via competitive flow from a saphenous vein graft. Bypass angiography: OG to the LAD is widely patent without any anastomotic stenosis. There is a high branching lateral thoracic branch that has not been ligated. SVG to RCA is widely patent without anastomotic stenosis SVG sequential graft to the first diagonal obtuse marginal is widely patent without any significant anastomotic stenosis Left ventriculography revealed mild LV dysfunction with ejection fraction of 45% and distal anterior, apical and distal inferior hypokinesis. At case completion the right femoral sheath was removed and hemostasis was achieved with an Angio-Seal device. No acute complications noted. Conclusion 1. Normal left-sided filling pressures 2. Mild LV dysfunction with ejection fraction of 40 to 45% 3. Severe triple-vessel disease 4. 4 out of 4 bypass grafts patent Recommendations Aggressive Medical Therapy Signed by : Kaden Royal, Electronically Approved : 04/29/2020 10:05:33 DICTATED and SIGNED BY: KADEN ROYAL MD DATE: 04/29/20 1563 Laboratory Tests Test 04/28/20 11:55 04/28/20 12:15 04/28/20 16:41 04/28/20 20:04 Glucose (Fingerstick) 186 mg/dL (70-99) 123 mg/dL (70-99) 139 mg/dL (70-99) Urine Collection Type Unknown Urine Color Yellow Urine Clarity Clear Urine pH 5.5 (<5.0-8.0) Urine Specific [place] 1.015 (1.000-1.030) Urine Protein >=300 mg/dL (NEG-TRACE) Urine Glucose (UA) 250 mg/dL (NEG) Urine Ketones (Stick) Negative mg/dL (NEG) Urine Blood Negative (NEG) Urine Nitrite Negative (NEG) Urine Bilirubin Negative (NEG) Urine Urobilinogen Dipstick 0.2 mg/dL (0.2 mg/dL) Urine Leukocyte Esterase Negative (NEG) Urine RBC 0 /HPF (0-2) Urine WBC Occ /HPF (0-4) Urine Squamous Epithelial Cells Occ /LPF Urine Bacteria Few /HPF (0-FEW) Urine Mucus Slight /LPF Urine Opiates Screen Neg (NEG) Urine Methadone Screen Neg (NEG) Urine Barbiturates Neg (NEG) Urine Phencyclidine Screen Neg (NEG) Urine Amphetamine/Methamphetamine Neg (NEG) Urine Benzodiazepines Screen Neg (NEG) Urine Cocaine Screen Neg (NEG) Urine Cannabinoids Screen Neg (NEG) Urine Ethyl Alcohol Neg (NEG) Test 04/29/20 07:20 04/29/20 07:51 Sodium Level 137 mmol/L (136-145) Potassium Level 4.6 mmol/L (3.5-5.1) Chloride Level 100 mmol/L (98-107) Carbon Dioxide Level 25 mmol/L (21-32) Anion Gap 12 (6-14) Blood Urea Nitrogen 67 mg/dL (8-26) Creatinine 8.2 mg/dL (0.7-1.3) Estimated GFR (Cockcroft-Gault) 6.9 Glucose Level 125 mg/dL (70-99) Calcium Level 8.3 mg/dL (8.5-10.1) Glucose (Fingerstick) 120 mg/dL (70-99) Assessment and Plan Assessmemt and Plan Problems Medical Problems: (1) Chest pain Status: Acute Comment Review of Relevant I have reviewed the following items nelda (where applicable) has been applied. Labs Laboratory Tests Test 04/27/20 16:20 04/27/20 21:15 04/28/20 00:36 04/28/20 03:57 White Blood Count 11.3 x10^3/uL (4.0-11.0) 9.6 x10^3/uL (4.0-11.0) Red Blood Count 3.60 x10^6/uL (4.30-5.70) 3.18 x10^6/uL (4.30-5.70) Hemoglobin 11.6 g/dL (13.0-17.5) 10.4 g/dL (13.0-17.5) Hematocrit 34.3 % (39.0-53.0) 30.1 % (39.0-53.0) Mean Corpuscular Volume 95 fL (79-100) 95 fL (79-100) Mean Corpuscular Hemoglobin 32 pg (25-35) 33 pg (25-35) Mean Corpuscular Hemoglobin Concent 34 g/dL (31-37) 35 g/dL (31-37) Red Cell Distribution Width 13.5 % (11.5-14.5) 13.6 % (11.5-14.5) Platelet Count 257 x10^3/uL (140-400) 212 x10^3/uL (140-400) Neutrophils (%) (Auto) 71 % (31-73) 60 % (31-73) Lymphocytes (%) (Auto) 15 % (24-48) 26 % (24-48) Monocytes (%) (Auto) 10 % (0-9) 10 % (0-9) Eosinophils (%) (Auto) 3 % (0-3) 3 % (0-3) Basophils (%) (Auto) 1 % (0-3) 0 % (0-3) Neutrophils # (Auto) 8.0 x10^3/uL (1.8-7.7) 5.8 x10^3/uL (1.8-7.7) Lymphocytes # (Auto) 1.7 x10^3/uL (1.0-4.8) 2.5 x10^3/uL (1.0-4.8) Monocytes # (Auto) 1.2 x10^3/uL (0.0-1.1) 1.0 x10^3/uL (0.0-1.1) Eosinophils # (Auto) 0.3 x10^3/uL (0.0-0.7) 0.3 x10^3/uL (0.0-0.7) Basophils # (Auto) 0.1 x10^3/uL (0.0-0.2) 0.0 x10^3/uL (0.0-0.2) Prothrombin Time 12.2 SEC (11.7-14.0) Prothromb Time International Ratio 0.9 (0.8-1.1) Sodium Level 134 mmol/L (136-145) 136 mmol/L (136-145) Potassium Level 4.9 mmol/L (3.5-5.1) 4.5 mmol/L (3.5-5.1) Chloride Level 98 mmol/L (98-107) 100 mmol/L (98-107) Carbon Dioxide Level 28 mmol/L (21-32) 27 mmol/L (21-32) Anion Gap 8 (6-14) 9 (6-14) Blood Urea Nitrogen 53 mg/dL (8-26) 57 mg/dL (8-26) Creatinine 6.7 mg/dL (0.7-1.3) 7.0 mg/dL (0.7-1.3) Estimated GFR (Cockcroft-Gault) 8.7 8.3 BUN/Creatinine Ratio 8 (6-20) 8 (6-20) Glucose Level 256 mg/dL (70-99) 199 mg/dL (70-99) Lactic Acid Level 1.0 mmol/L (0.4-2.0) Calcium Level 8.2 mg/dL (8.5-10.1) 7.9 mg/dL (8.5-10.1) Total Bilirubin 0.3 mg/dL (0.2-1.0) 0.3 mg/dL (0.2-1.0) Aspartate Amino Transf (AST/SGOT) 20 U/L (15-37) 19 U/L (15-37) Alanine Aminotransferase (ALT/SGPT) 24 U/L (16-63) 25 U/L (16-63) Alkaline Phosphatase 182 U/L (46-116) 156 U/L (46-116) Troponin I Quantitative < 0.017 ng/mL (0.000-0.055) < 0.017 ng/mL (0.000-0.055) < 0.017 ng/mL (0.000-0.055) GR-Ypr-P-Type Natriuretic Peptide 02610 pg/mL (0-124) Total Protein 7.1 g/dL (6.4-8.2) 5.6 g/dL (6.4-8.2) Albumin 3.0 g/dL (3.4-5.0) 2.6 g/dL (3.4-5.0) Albumin/Globulin Ratio 0.7 (1.0-1.7) 0.9 (1.0-1.7) Lipase 1535 U/L (73-393) 1608 U/L (73-393) Glucose (Fingerstick) 233 mg/dL (70-99) C-Reactive Protein, Quantitative 45.1 mg/L (0-3.3) Phosphorus Level 5.9 mg/dL (2.6-4.7) Test 04/28/20 07:44 04/28/20 08:52 04/28/20 09:25 04/28/20 11:55 Glucose (Fingerstick) 167 mg/dL (70-99) 192 mg/dL (70-99) 186 mg/dL (70-99) O2 Saturation 87 % (92-99) Arterial Blood pH 7.36 (7.35-7.45) Arterial Blood pCO2 at Patient Temp 44 mmHg (35-46) Arterial Blood pO2 at Patient Temp 58 mmHg (75-108) Arterial Blood HCO3 24 mmol/L (21-28) Arterial Blood Base Excess -1 mmol/L (-3-3) FiO2 21% Test 04/28/20 12:15 04/28/20 16:41 04/28/20 20:04 04/29/20 07:20 Urine Collection Type Unknown Urine Color Yellow Urine Clarity Clear Urine pH 5.5 (<5.0-8.0) Urine Specific [place] 1.015 (1.000-1.030) Urine Protein >=300 mg/dL (NEG-TRACE) Urine Glucose (UA) 250 mg/dL (NEG) Urine Ketones (Stick) Negative mg/dL (NEG) Urine Blood Negative (NEG) Urine Nitrite Negative (NEG) Urine Bilirubin Negative (NEG) Urine Urobilinogen Dipstick 0.2 mg/dL (0.2 mg/dL) Urine Leukocyte Esterase Negative (NEG) Urine RBC 0 /HPF (0-2) Urine WBC Occ /HPF (0-4) Urine Squamous Epithelial Cells Occ /LPF Urine Bacteria Few /HPF (0-FEW) Urine Mucus Slight /LPF Urine Opiates Screen Neg (NEG) Urine Methadone Screen Neg (NEG) Urine Barbiturates Neg (NEG) Urine Phencyclidine Screen Neg (NEG) Urine Amphetamine/Methamphetamine Neg (NEG) Urine Benzodiazepines Screen Neg (NEG) Urine Cocaine Screen Neg (NEG) Urine Cannabinoids Screen Neg (NEG) Urine Ethyl Alcohol Neg (NEG) Glucose (Fingerstick) 123 mg/dL (70-99) 139 mg/dL (70-99) Sodium Level 137 mmol/L (136-145) Potassium Level 4.6 mmol/L (3.5-5.1) Chloride Level 100 mmol/L (98-107) Carbon Dioxide Level 25 mmol/L (21-32) Anion Gap 12 (6-14) Blood Urea Nitrogen 67 mg/dL (8-26) Creatinine 8.2 mg/dL (0.7-1.3) Estimated GFR (Cockcroft-Gault) 6.9 Glucose Level 125 mg/dL (70-99) Calcium Level 8.3 mg/dL (8.5-10.1) Test 04/29/20 07:51 Glucose (Fingerstick) 120 mg/dL (70-99) Laboratory Tests Test 04/28/20 11:55 04/28/20 12:15 04/28/20 16:41 04/28/20 20:04 Glucose (Fingerstick) 186 mg/dL (70-99) 123 mg/dL (70-99) 139 mg/dL (70-99) Urine Collection Type Unknown Urine Color Yellow Urine Clarity Clear Urine pH 5.5 (<5.0-8.0) Urine Specific [place] 1.015 (1.000-1.030) Urine Protein >=300 mg/dL (NEG-TRACE) Urine Glucose (UA) 250 mg/dL (NEG) Urine Ketones (Stick) Negative mg/dL (NEG) Urine Blood Negative (NEG) Urine Nitrite Negative (NEG) Urine Bilirubin Negative (NEG) Urine Urobilinogen Dipstick 0.2 mg/dL (0.2 mg/dL) Urine Leukocyte Esterase Negative (NEG) Urine RBC 0 /HPF (0-2) Urine WBC Occ /HPF (0-4) Urine Squamous Epithelial Cells Occ /LPF Urine Bacteria Few /HPF (0-FEW) Urine Mucus Slight /LPF Urine Opiates Screen Neg (NEG) Urine Methadone Screen Neg (NEG) Urine Barbiturates Neg (NEG) Urine Phencyclidine Screen Neg (NEG) Urine Amphetamine/Methamphetamine Neg (NEG) Urine Benzodiazepines Screen Neg (NEG) Urine Cocaine Screen Neg (NEG) Urine Cannabinoids Screen Neg (NEG) Urine Ethyl Alcohol Neg (NEG) Test 04/29/20 07:20 04/29/20 07:51 Sodium Level 137 mmol/L (136-145) Potassium Level 4.6 mmol/L (3.5-5.1) Chloride Level 100 mmol/L (98-107) Carbon Dioxide Level 25 mmol/L (21-32) Anion Gap 12 (6-14) Blood Urea Nitrogen 67 mg/dL (8-26) Creatinine 8.2 mg/dL (0.7-1.3) Estimated GFR (Cockcroft-Gault) 6.9 Glucose Level 125 mg/dL (70-99) Calcium Level 8.3 mg/dL (8.5-10.1) Glucose (Fingerstick) 120 mg/dL (70-99) Microbiology 04/27/20 Blood Culture - Preliminary, Resulted NO GROWTH AFTER 1 DAY Medications Current Medications Aspirin (Katie Aspirin) 325 mg 1X ONCE PO Last administered on 04/27/20at 16:48; Start 04/27/20 at 16:15; Stop 04/27/20 at 16:16; Status DC Fentanyl Citrate (Fentanyl 2ml Vial) 50 mcg 1X ONCE IVP Last administered on 04/27/20at 16:55; Start 04/27/20 at 17:00; Stop 04/27/20 at 17:01; Status DC Ondansetron HCl (Zofran) 4 mg PRN Q8HRS PRN IV NAUSEA/VOMITING Last administered on 04/27/20at 19:13; Start 04/27/20 at 18:00; Stop 04/27/20 at 20:20; Status DC Fentanyl Citrate (Fentanyl 2ml Vial) 50 mcg PRN Q1HR PRN IV PAIN Last administered on 04/27/20at 19:36; Start 04/27/20 at 18:00; Stop 04/27/20 at 20:20; Status DC Ondansetron HCl (Zofran) 4 mg PRN Q4HRS PRN IV NAUSEA/VOMITING; Start 04/27/20 at 20:30 Insulin Human Lispro (HumaLOG) 0-7 UNITS TIDACHC SQ ; Start 04/27/20 at 21:15 Dextrose (Dextrose 50%-Water Syringe) 12.5 gm PRN Q15MIN PRN IV SEE COMMENTS; Start 04/27/20 at 20:30 Amlodipine Besylate (Norvasc) 10 mg DAILY PO Last administered on 04/29/20at 07:56; Start 04/28/20 at 09:00 Aspirin (Aspirin Chewable) 81 mg DAILY PO Last administered on 04/29/20at 07:56; Start 04/28/20 at 09:00 Buspirone HCl (Buspar) 5 mg BID PO Last administered on 04/28/20at 20:06; Start 04/27/20 at 21:15 Divalproex Sodium (Depakote) 1,000 mg BID PO Last administered on 04/28/20at 20:06; Start 04/27/20 at 21:00 Docusate Sodium (Colace) 100 mg DAILY PO ; Start 04/28/20 at 09:00 Vitamin B Complex/ Vitamin C (Gissel-Irvin) 1 tab DAILY PO ; Start 04/28/20 at 09:00 Furosemide (Lasix) 120 mg BID92 PO Last administered on 04/28/20at 16:23; Start 04/28/20 at 09:00 Hydralazine HCl (Apresoline) 25 mg BID PO Last administered on 04/28/20at 20:06; Start 04/27/20 at 21:00 Lisinopril (Prinivil) 20 mg DAILY PO Last administered on 04/29/20at 07:57; Start 04/28/20 at 09:00 Lorazepam (Ativan) 0.5 mg PRN Q8HRS PRN PO anxiety Last administered on 04/27/20 21:07; Start 04/27/20 at 20:30; Stop 04/28/20 at 09:11; Status DC Lubiprostone (Amitiza) 24 mcg DAILY PO Last administered on 04/28/20at 12:29; Start 04/28/20 at 09:00 Nitroglycerin (Nitrostat) 0.4 mg PRN Q5MIN PRN SL CHEST PAIN; Start 04/27/20 at 20:30 Ondansetron HCl (Zofran Odt) 4 mg PRN Q4HRS PRN PO NAUSEA; Start 04/27/20 at 20:30; Status Cancel Oxycodone/ Acetaminophen (Percocet 10/325) 1 tab PRN BID PRN PO SEVERE PAIN 7- 10 Last administered on 04/29/20at 07:54; Start 04/27/20 at 20:30 Quetiapine Fumarate (SEROquel) 100 mg QHS PO Last administered on 04/28/20at 20:06; Start 04/27/20 at 21:00 Sevelamer Carbonate (Renvela) 800 mg TIDWMEALS PO Last administered on 04/28/20at 20:05; Start 04/28/20 at 08:00 Carvedilol (Coreg) 12.5 mg BIDWMEALS PO Last administered on 04/29/20at 07:56; Start 04/28/20 at 08:00 Citalopram Hydrobromide (CeleXA) 40 mg HS PO Last administered on 04/28/20at 20:06; Start 04/27/20 at 21:15 Diphenhydramine HCl (Benadryl) 25 mg HS PO Last administered on 04/28/20at 20:06; Start 04/27/20 at 21:00 Non-Formulary Medication (Insulin Degludec (Tresiba)) 42 unit QHS SQ ; Start 04/27/20 at 21:00; Status UNV Ondansetron HCl (Zofran Odt) 4 mg PRN Q8HRS PRN PO NAUSEA/VOMITING; Start 04/27/20 at 21:00 Pantoprazole Sodium (Protonix) 40 mg DAILYAC PO ; Start 04/28/20 at 07:30; Stop 04/28/20 at 11:08; Status DC Ranolazine (Ranexa) 500 mg BID PO Last administered on 04/28/20 20:12; Start 04/27/20 at 21:15 Trazodone HCl (Desyrel) 150 mg HS PO Last administered on 04/28/20 20:05; Start 04/27/20 at 21:00 Diclofenac Sodium (Voltaren) 1 jv BID TP Last administered on 04/28/20 20:13; Start 04/28/20 at 09:00 Psyllium Hydrophilic Mucilloid (Metamucil Fiber Packet) 1 pkt QHS PO Last administered on 04/28/20 20:05; Start 04/27/20 at 21:15 Polyethylene Glycol (miraLAX PACKET) 17 gm QHS PO Last administered on 04/28/20 20:11; Start 04/27/20 at 21:00 Bisacodyl (Dulcolax Supp) 10 mg PRN DAILY PRN [place] CONSTIPATION; Start 04/27/20 at 21:00; Status UNV Lactulose (Lactulose) 20 gm PRN DAILY PRN PO CONSTIPATION; Start 04/27/20 at 21:00 Heparin Sodium (Porcine) (Heparin Sodium) 5,000 unit Q8HRS SQ Last administered on 04/29/20 05:01; Start 04/27/20 at 22:00 Hydralazine HCl (Apresoline Inj) 10 mg PRN Q4HRS PRN IVP ELEVATED BP, SEE COMME NTS Last administered on 04/28/20at 22:19; Start 04/27/20 at 21:00 Insulin Glargine (Lantus Syringe) 42 unit QHS SQ Last administered on 04/28/20at 20:12; Start 04/27/20 at 21:30 Fentanyl Citrate (Fentanyl 2ml Vial) 50 mcg PRN Q1HR PRN IVP PAIN Last admini stered on 04/27/20at 22:48; Start 04/27/20 at 22:30; Stop 04/28/20 at 09:11; Status DC Fentanyl Citrate (Fentanyl 2ml Vial) 50 mcg PRN Q2HRS PRN IVP MODERATE TO SEVERE PAIN Last administered on 04/29/20at 04:32; Start 04/28/20 at 09:15 Lorazepam (Ativan) 0.5 mg PRN DAILY PRN PO anxiety; Start 04/29/20 at 08:30 Pantoprazole Sodium (PROTONIX VIAL for IV PUSH) 40 mg DAILYAC IVP Last administered on 04/28/20at 12:25; Start 04/28/20 at 11:30; Stop 04/28/20 at 16:12; Status DC Pantoprazole Sodium (PROTONIX VIAL for IV PUSH) 40 mg BIDAC IVP ; Start 04/29/20 at 07:30 Iodixanol (Visipaque 320) 100 ml STK-MED ONCE .ROUTE ; Start 04/29/20 at 07:42; Stop 04/29/20 at 07:42; Status DC Lidocaine HCl (Lidocaine 1% 20ml Vial) 20 ml STK-MED ONCE .ROUTE ; Start 04/29/20 at 07:42; Stop 04/29/20 at 07:42; Status DC Heparin Sodium/ Sodium Chloride 1,500 ml @ As Directed STK-MED ONCE .ROUTE ; Start 04/29/20 at 07:42; Stop 04/29/20 at 07:43; Status DC Sodium Chloride 1,000 ml @ 1,000 mls/hr Q1H PRN IV hypotension; Start 04/29/20 at 08:16; Stop 04/29/20 at 14:15 Diphenhydramine HCl (Benadryl) 25 mg 1X PRN PRN IV ITCHING; Start 04/29/20 at 08:30; Stop 04/30/20 at 08:29 Diphenhydramine HCl (Benadryl) 25 mg 1X PRN PRN IV ITCHING; Start 04/29/20 at 08:30; Stop 04/30/20 at 08:29 Sodium Chloride 1,000 ml @ 400 mls/hr Q2H30M PRN IV PATENCY; Start 04/29/20 at 08:16; Stop 04/29/20 at 20:15 Info (PHARMACY MONITORING -- do not chart) 1 each PRN DAILY PRN MC SEE COMMENTS; Start 04/29/20 at 08:30; Status UNV Info (PHARMACY MONITORING -- do not chart) 1 each PRN DAILY PRN MC SEE COMMENTS; Start 04/29/20 at 08:30 Fentanyl Citrate (Fentanyl 2ml Vial) 100 mcg STK-MED ONCE .ROUTE ; Start 04/29/20 at 08:43; Stop 04/29/20 at 08:43; Status DC Midazolam HCl (Versed) 5 mg STK-MED ONCE .ROUTE ; Start 04/29/20 at 08:43; Stop 04/29/20 at 08:43; Status DC Heparin Sodium/ Sodium Chloride (HEPARIN for ARTERIAL LINE FLUSH) 1,000 unit 1X ONCE IART Last administered on 04/29/20at 09:44; Start 04/29/20 at 09:15; Stop 04/29/20 at 09:16; Status DC Heparin Sodium/ Sodium Chloride (HEPARIN for ARTERIAL LINE FLUSH) 1,000 unit 1X ONCE IART Last administered on 04/29/20at 09:44; Start 04/29/20 at 09:15; Stop 04/29/20 at 09:16; Status DC Midazolam HCl (Versed) 5 mg 1X ONCE IV Last administered on 04/29/20at 09:45; Start 04/29/20 at 09:15; Stop 04/29/20 at 09:16; Status DC Fentanyl Citrate (Fentanyl 2ml Vial) 100 mcg 1X ONCE IV Last administered on 04/29/20at 09:46; Start 04/29/20 at 09:15; Stop 04/29/20 at 09:16; Status DC Iodixanol (Visipaque 320) 100 ml 1X ONCE IART Last administered on 04/29/20at 09:45; Start 04/29/20 at 09:15; Stop 04/29/20 at 09:16; Status DC Lidocaine HCl (Lidocaine 1% 20ml Vial) 20 ml 1X ONCE INJ Last administered on 04/29/20at 09:45; Start 04/29/20 at 09:15; Stop 04/29/20 at 09:16; Status DC Iodixanol (Visipaque 320) 100 ml STK-MED ONCE .ROUTE ; Start 04/29/20 at 09:32; Stop 04/29/20 at 09:32; Status DC Active Scripts Active Ondansetron Odt (Ondansetron) 4 Mg Tab.rapdis 1 Tab PO PRN Q6-8HRS PRN Percocet 10-325 Mg Tablet (Oxycodone/Acetaminophen) 1 Each Tablet 1 Tab PO PRN BID PRN MDD 2 Tablet(s) 5 Days [Diclofenac Sodium] 100 GM Gel..gram. 1 Jv TP BID 30 Days Reported Renal-Irvin Tablet (Folic Acid/Vit Bcomp,C) 0.8 Mg Tablet 0.8 Mg PO DAILY Novolog (Insulin Aspart) 100 Unit/1 Ml Vial 0 SQ PRN TID PRN Ibuprofen 600 Mg Tablet 600 Mg PO PRN Q12HR PRN Diphenhydramine Hcl 25 Mg Tablet 25 Mg PO QHS Furosemide 80 Mg Tablet 120 Mg PO BID Tresiba (Insulin Degludec) 100 Unit/1 Ml Vial 42 Unit SQ DAILY Ativan (Lorazepam) 1 Mg Tablet 0.5 Mg PO Q4HRS Percocet 10-325 Mg Tablet (Oxycodone/Acetaminophen) 1 Each Tablet 1 Tab PO BID Buspirone Hcl 5 Mg Tablet 5 Mg PO BID Lisinopril 20 Mg Tablet 20 Mg PO DAILY Zofran (Ondansetron Hcl) 4 Mg Tablet 1 Tab PO PRN Q4HRS PRN NITROGLYCERIN SubLingual (Nitroglycerin) 0.4 Mg Tab.subl 0.4 Mg SL PRN Q5MIN PRN Hydralazine Hcl 25 Mg Tablet 1 Tab PO BID Gabapentin 400 Mg Capsule 400 Mg PO BID Citalopram Hbr (Citalopram Hydrobromide) 40 Mg Tablet 40 Mg PO HS Cyclobenzaprine Hcl 10 Mg Tablet 1 Tab PO TID PRN PRN Ranexa (Ranolazine) 1,000 Mg Tab.er.12h 0.5 Tab PO BID Seroquel (Quetiapine Fumarate) 100 Mg Tablet 1 Tab PO QHS Protonix (Pantoprazole Sodium) 20 Mg Tablet.dr 40 Mg PO DAILY Docusate Sodium 100 Mg Capsule 1 Cap PO DAILY Divalproex Sodium 500 Mg Tablet.dr 2 Tab PO BID Aspirin 81 Mg Tab.chew 1 Tab PO DAILY Amitiza (Lubiprostone) 24 Mcg Capsule 1 Cap PO DAILY Norvasc (Amlodipine Besylate) 10 Mg Tablet 10 Mg PO DAILY Coreg (Carvedilol) 25 Mg Tablet 12.5 Mg PO BIDWMEALS Metolazone 5 Mg Tablet 5 Mg PO DAILY Renvela (Sevelamer Carbonate) 800 Mg Tablet 800 Mg PO TIDWMEALS Trazodone Hcl 300 Mg Tablet 150 Mg PO HS Vitals/I & O Vital Sign - Last 24 Hours 04/28/20 04/28/20 04/28/20 04/28/20 11:00 12:27 12:57 15:00 Temp 98.6 97.9 98.6 97.9 Pulse 75 69 Resp 20 20 B/P (MAP) 147/69 (95) 129/61 (83) Pulse Ox 96 90 O2 Delivery Nasal Cannula Room Air Room Air Room Air O2 Flow Rate 4.0 04/28/20 04/28/20 04/28/20 04/28/20 16:22 17:22 17:27 17:36 Pulse 69 B/P (MAP) 129/61 Pulse Ox 90 90 90 O2 Delivery Nasal Cannula Nasal Cannula Nasal Cannula O2 Flow Rate 4.0 4.0 4.0 04/28/20 04/28/20 04/28/20 04/28/20 18:06 19:39 19:43 20:06 Temp 98.0 98.0 Pulse 71 71 Resp 18 B/P (MAP) 175/78 (110) 175/78 Pulse Ox 90 95 O2 Delivery Nasal Cannula Nasal Cannula Nasal Cannula O2 Flow Rate 4.0 2.0 3.0 04/28/20 04/28/20 04/28/20 04/28/20 20:12 20:13 20:43 22:14 Pulse 71 Resp 18 20 20 B/P (MAP) 175/78 O2 Delivery Nasal Cannula Nasal Cannula O2 Flow Rate 3.0 3.0 04/28/20 04/28/20 04/28/20 04/29/20 22:19 22:25 22:44 00:31 Temp 98.1 98.1 Pulse 71 71 Resp 18 18 20 B/P (MAP) 192/87 192/87 (122) Pulse Ox 97 O2 Delivery Nasal Cannula Nasal Cannula Nasal Cannula O2 Flow Rate 4.0 3.0 04/29/20 04/29/20 04/29/20 04/29/20 01:01 02:31 02:38 03:08 Temp 98.2 98.2 Pulse 68 Resp 20 20 18 B/P (MAP) 131/63 (85) O2 Delivery Nasal Cannula Nasal Cannula O2 Flow Rate 4.0 3.0 04/29/20 04/29/20 04/29/20 04/29/20 04:32 05:02 07:00 07:54 Temp 97.8 97.8 Pulse 74 Resp 20 B/P (MAP) 148/66 (93) Pulse Ox 98 97 O2 Delivery Nasal Cannula Nasal Cannula Nasal Cannula O2 Flow Rate 3.0 3.0 04/29/20 04/29/20 04/29/20 04/29/20 07:56 07:56 07:57 09:46 Pulse 68 68 68 Resp 18 B/P (MAP) 131/63 131/63 131/63 Pulse Ox 96 O2 Delivery Nasal Cannula O2 Flow Rate 2.0 04/29/20 09:46 Pulse 69 Resp 18 Pulse Ox 96 O2 Delivery Nasal Cannula O2 Flow Rate 2.0 Intake and Output 04/28/20 04/28/20 04/29/20 15:00 23:00 07:00 Intake Total 120 ml 840 ml Output Total 375 ml 550 ml 400 ml Balance -255 ml 290 ml -400 ml SALOMÓN HADDAD MD Apr 29, 2020 09:50
--- NOTE | 2020-04-29 09:59 | PDOC ---
Objective: Objective: D/w nurse - out of room for cath and then HD. D/w cardiology - wants to know any GI plans. Vital Signs: Vital Signs Date Time Temp Pulse Resp B/P (MAP) Pulse Ox O2 Delivery O2 Flow Rate FiO2 04/29/20 09:46 69 18 96 Nasal Cannula 2.0 04/29/20 07:57 131/63 04/29/20 07:00 97.8 97.8 Labs: Laboratory Tests Test 04/28/20 11:55 04/28/20 12:15 04/28/20 16:41 04/28/20 20:04 Glucose (Fingerstick) 186 mg/dL 123 mg/dL 139 mg/dL Urine Collection Type Unknown Urine Color Yellow Urine Clarity Clear Urine pH 5.5 Urine Specific [place] 1.015 Urine Protein >=300 mg/dL Urine Glucose (UA) 250 mg/dL Urine Ketones (Stick) Negative mg/dL Urine Blood Negative Urine Nitrite Negative Urine Bilirubin Negative Urine Urobilinogen Dipstick 0.2 mg/dL Urine Leukocyte Esterase Negative Urine RBC 0 /HPF Urine WBC Occ /HPF Urine Squamous Epithelial Cells Occ /LPF Urine Bacteria Few /HPF Urine Mucus Slight /LPF Urine Opiates Screen Neg Urine Methadone Screen Neg Urine Barbiturates Neg Urine Phencyclidine Screen Neg Urine Amphetamine/Methamphetamine Neg Urine Benzodiazepines Screen Neg Urine Cocaine Screen Neg Urine Cannabinoids Screen Neg Urine Ethyl Alcohol Neg Test 04/29/20 07:20 04/29/20 07:51 Sodium Level 137 mmol/L Potassium Level 4.6 mmol/L Chloride Level 100 mmol/L Carbon Dioxide Level 25 mmol/L Anion Gap 12 Blood Urea Nitrogen 67 mg/dL Creatinine 8.2 mg/dL Estimated GFR (Cockcroft-Gault) 6.9 Glucose Level 125 mg/dL Calcium Level 8.3 mg/dL Glucose (Fingerstick) 120 mg/dL PE: out of room A/P: Atypical CP Elevated lipase w/ normal pancreas on imaging GERD CAD, DM, ESRD -- Continue BID PPI. Will follow-up after cath/dailysis. Okay to ADAT. Justicifation of Admission Dx: Justifications for Admission: Justification of Admission Dx: Yes DARRIN BOATENG Apr 29, 2020 09:59
--- NOTE | 2020-04-29 10:05 | CARD ---
MR#: [id number] Date of Study: 04/29/2020 Ordering Physician: KADEN ROYAL, Referring Physician: KADEN ROYAL, Tech: CHEY HENRIQUEZ RTR APPROVED REPORT Technologist: CHEY HENRIQUEZ RTR Nurse: Brigida Morales R.N. Procedure(s) performed: MODERATE SEDATION TIME: 42 MINUTES FLUORO TIME: 5.4 MIN DOSE: 118 GYCM2 CONTRAST: 151 CC VISI LHC, Coronary angiography, Bypass angiography HISTORY The patient is a 54 year-old with a history of : coronary artery disease, tobacco history() , hyperte nsion, dyslipidemia. INDICATION The indication(s) include : unstable angina . CS Clinical Frailty Scale [place] Clinical Frailty Scale: Moderately Frail Heart Failure Heart Failure: Yes If Yes, Newly Diagnosed: No If Yes, HF Type: Systolic If Yes, NYHA Class: Class II PROCEDURE NARRATIVE Clinical information: 54-year-old man with multiple risk factors including prior coronary artery bypa ss grafting presenting with persistent exertional chest pain and dyspnea. He also had atypical sympt oms suggestive of GERD. After GI evaluation it was felt that his gastroesophageal reflux disease was well controlled and therefore due to persistent symptoms he was evaluated for progressive coronary d isease Informed consent: Written informed consent was obtained from the patient. Procedure details: Access: Under 2% lidocaine local anesthesia a 6 [place] sheath was placed in the right common femoral artery. Diagnostic angiography: A JL4, JR4, IRINA, LCB catheters were used to engage the [place] coronary arteries and bypass vessels. Left ventriculography was performed with a pigtail catheter and pullback was performed after LVEDP me asurement. Findings: Aorta: 110/80 LVEDP 11 Coronary angiography: Left main is a large-caliber vessel with a long tapered mid to distal 50% stenosis. LAD is a moderate caliber vessel with proximal to mid long 70 to 80% stenosis. The distal vessel see n to fill via a IRINA graft but the vessel is small in caliber and moderately diffusely diseased. Ramus is a small caliber vessel with a proximal 80% stenosis The first diagonal is a small to moderate caliber vessel with proximal 70% stenosis Left circumflex is a moderate caliber vessel with a ostial and proximal 70% stenosis. OM1 is a small to moderate caliber vessel with mild luminal irregularities. The distal vessel seen t o fill via competitive flow from the saphenous vein graft RCA is a large caliber vessel with severe proximal to mid 80 to 90% stenosis. The distal vessels are seen to fill via competitive flow from a saphenous vein graft. Bypass angiography: OG to the LAD is widely patent without any anastomotic stenosis. There is a high branching lateral thoracic branch that has not been ligated. SVG to RCA is widely patent without anastomotic stenosis SVG sequential graft to the first diagonal obtuse marginal is widely patent without any significant a nastomotic stenosis Left ventriculography revealed mild LV dysfunction with ejection fraction of 45% and distal anterior, apical and distal inferior hypokinesis. At case completion the right femoral sheath was removed and hemostasis was achieved with an Angio-Sea l device. No acute complications noted. Conclusion 1. Normal left-sided filling pressures 2. Mild LV dysfunction with ejection fraction of 40 to 45% 3. Severe triple-vessel disease 4. 4 out of 4 bypass grafts patent Recommendations Aggressive Medical Therapy Signed by : Kaden Royal, Electronically Approved : 04/29/2020 10:05:33
--- NOTE | 2020-04-29 11:19 | PDOC ---
SUBJECTIVE ROS seen on HD, no complaints S/P cardiac cath earlier today OBJECTIVE Vital Signs Vital Signs Date Time Temp Pulse Resp B/P (MAP) Pulse Ox O2 Delivery O2 Flow Rate FiO2 04/29/20 09:46 69 18 96 Nasal Cannula 2.0 04/29/20 07:57 131/63 04/29/20 07:00 97.8 97.8 I & 0 Intake and Output 04/29/20 07:00 Intake Total 960 ml Output Total 1325 ml Balance -365 ml Intake Oral 960 ml Output Urine Total 1325 ml PHYSICAL EXAM Physical Exam GENERAL: NAD HEENT: OM moist NECK: supple CARDIOVASCULAR: S1, S2. LUNGS: Diminished breath sounds at the base ABDOMEN: Soft, obese , PD catheter in place : No Hale. EXTREMITIES: no edema NEURO- Grossly normal DERM No Rash : DIAGNOSIS/ASSESSMENT Assessment & Plan ESRD:On TTS under Dr Hernandez seen on HD, tolerating well, continue as ordered, Ravi Meraz Chest pain - s/p cardiac cath today Normal left-sided filling pressures, Mild LV dysfunction with ejection fraction of 40 to 45%, Severe triple-vessel disease 4 out of 4 bypass grafts patent Diabetes, insulin-dependent. Chronic pain syndrome- has been on narcotics Hx of CAD s/p CABG Chronic congestive heart failure Hx of Depression. History of previous hip fracture from fall, left femoral fracture, had surgeries done for that. Anemia: No indication for CHLOE HTN- Hypotensive at presentation, stable currently History of drug overdose with both morphine as well as fentanyl. Seizure disorder. COMMENT/RELEVANT DATA Meds Current Medications Medications (Trade) Dose Ordered Sig/Brittani Start Time Stop Time Status Last Admin Dose Admin Amlodipine Besylate (Norvasc) 10 mg DAILY 04/28/20 09:00 04/29/20 07:56 10 MG Aspirin (Aspirin Chewable) 81 mg DAILY 04/28/20 09:00 04/29/20 07:56 81 MG Aspirin (Katie Aspirin) 325 mg 1X ONCE 04/27/20 16:15 04/27/20 16:16 DC 04/27/20 16:48 325 MG Bisacodyl (Dulcolax Supp) 10 mg PRN DAILY PRN 04/27/20 21:00 UNV Buspirone HCl (Buspar) 5 mg BID 04/27/20 21:15 04/28/20 20:06 5 MG Carvedilol (Coreg) 12.5 mg BIDWMEALS 04/28/20 08:00 04/29/20 07:56 12.5 MG Citalopram Hydrobromide (CeleXA) 40 mg HS 04/27/20 21:15 04/28/20 20:06 40 MG Dextrose (Dextrose 50%-Water Syringe) 12.5 gm PRN Q15MIN PRN 04/27/20 20:30 Diclofenac Sodium (Voltaren) 1 jv BID 04/28/20 09:00 04/28/20 20:13 1 JV Diphenhydramine HCl (Benadryl) 25 mg 1X PRN PRN 04/29/20 08:30 04/30/20 08:29 Divalproex Sodium (Depakote) 1,000 mg BID 04/27/20 21:00 04/28/20 20:06 1,000 MG Docusate Sodium (Colace) 100 mg DAILY 04/28/20 09:00 Fentanyl Citrate (Fentanyl 2ml Vial) 100 mcg 1X ONCE 04/29/20 09:15 04/29/20 09:16 DC 04/29/20 09:46 75 MCG Furosemide (Lasix) 120 mg BID92 04/28/20 09:00 04/28/20 16:23 120 MG Heparin Sodium (Porcine) (Heparin Sodium) 5,000 unit Q8HRS 04/27/20 22:00 04/29/20 05:01 5,000 UNIT Heparin Sodium/ Sodium Chloride (HEPARIN for ARTERIAL LINE FLUSH) 1,000 unit 1X ONCE 04/29/20 09:15 04/29/20 09:16 DC 04/29/20 09:44 1,000 UNIT Hydralazine HCl (Apresoline Inj) 10 mg PRN Q4HRS PRN 04/27/20 21:00 04/28/20 22:19 10 MG Hydralazine HCl (Apresoline) 25 mg BID 04/27/20 21:00 04/28/20 20:06 25 MG Info (PHARMACY MONITORING -- do not chart) 1 each PRN DAILY PRN 04/29/20 08:30 Insulin Glargine (Lantus Syringe) 42 unit QHS 04/27/20 21:30 04/28/20 20:12 42 UNIT Insulin Human Lispro (HumaLOG) 0-7 UNITS TIDACHC 04/27/20 21:15 Iodixanol (Visipaque 320) 100 ml STK-MED ONCE 04/29/20 09:32 04/29/20 09:32 DC Lactulose (Lactulose) 20 gm PRN DAILY PRN 04/27/20 21:00 Lidocaine HCl (Lidocaine 1% 20ml Vial) 20 ml 1X ONCE 04/29/20 09:15 04/29/20 09:16 DC 04/29/20 09:45 15 ML Lisinopril (Prinivil) 20 mg DAILY 04/28/20 09:00 04/29/20 07:57 20 MG Lorazepam (Ativan) 0.5 mg PRN DAILY PRN 04/29/20 08:30 Lubiprostone (Amitiza) 24 mcg DAILY 04/28/20 09:00 04/28/20 12:29 24 MCG Midazolam HCl (Versed) 5 mg 1X ONCE 04/29/20 09:15 04/29/20 09:16 DC 04/29/20 09:45 3 MG Nitroglycerin (Nitrostat) 0.4 mg PRN Q5MIN PRN 04/27/20 20:30 Non-Formulary Medication (Insulin Degludec (Tresiba)) 42 unit QHS 04/27/20 21:00 UNV Ondansetron HCl (Zofran Odt) 4 mg PRN Q8HRS PRN 04/27/20 21:00 Ondansetron HCl (Zofran) 4 mg PRN Q4HRS PRN 04/27/20 20:30 Oxycodone/ Acetaminophen (Percocet 10/325) 1 tab PRN BID PRN 04/27/20 20:30 04/29/20 07:54 1 TAB Pantoprazole Sodium (PROTONIX VIAL for IV PUSH) 40 mg BIDAC 04/29/20 07:30 Pantoprazole Sodium (Protonix) 40 mg DAILYAC 04/28/20 07:30 04/28/20 11:08 DC Polyethylene Glycol (miraLAX PACKET) 17 gm QHS 04/27/20 21:00 04/28/20 20:11 17 GM Psyllium Hydrophilic Mucilloid (Metamucil Fiber Packet) 1 pkt QHS 04/27/20 21:15 04/28/20 20:05 1 PKT Quetiapine Fumarate (SEROquel) 100 mg QHS 04/27/20 21:00 04/28/20 20:06 100 MG Ranolazine (Ranexa) 500 mg BID 04/27/20 21:15 04/28/20 20:12 500 MG Sevelamer Carbonate (Renvela) 800 mg TIDWMEALS 04/28/20 08:00 04/28/20 20:05 800 MG Sodium Chloride 1,000 ml @ 400 mls/hr Q2H30M PRN 04/29/20 08:16 04/29/20 20:15 Trazodone HCl (Desyrel) 150 mg HS 04/27/20 21:00 04/28/20 20:05 150 MG Vitamin B Complex/ Vitamin C (Gissel-Irvin) 1 tab DAILY 04/28/20 09:00 Lab Laboratory Tests Test 04/28/20 11:55 04/28/20 12:15 04/28/20 16:41 04/28/20 20:04 Glucose (Fingerstick) 186 mg/dL (70-99) 123 mg/dL (70-99) 139 mg/dL (70-99) Urine Collection Type Unknown Urine Color Yellow Urine Clarity Clear Urine pH 5.5 (<5.0-8.0) Urine Specific [place] 1.015 (1.000-1.030) Urine Protein >=300 mg/dL (NEG-TRACE) Urine Glucose (UA) 250 mg/dL (NEG) Urine Ketones (Stick) Negative mg/dL (NEG) Urine Blood Negative (NEG) Urine Nitrite Negative (NEG) Urine Bilirubin Negative (NEG) Urine Urobilinogen Dipstick 0.2 mg/dL (0.2 mg/dL) Urine Leukocyte Esterase Negative (NEG) Urine RBC 0 /HPF (0-2) Urine WBC Occ /HPF (0-4) Urine Squamous Epithelial Cells Occ /LPF Urine Bacteria Few /HPF (0-FEW) Urine Mucus Slight /LPF Urine Opiates Screen Neg (NEG) Urine Methadone Screen Neg (NEG) Urine Barbiturates Neg (NEG) Urine Phencyclidine Screen Neg (NEG) Urine Amphetamine/Methamphetamine Neg (NEG) Urine Benzodiazepines Screen Neg (NEG) Urine Cocaine Screen Neg (NEG) Urine Cannabinoids Screen Neg (NEG) Urine Ethyl Alcohol Neg (NEG) Test 04/29/20 07:20 04/29/20 07:51 Sodium Level 137 mmol/L (136-145) Potassium Level 4.6 mmol/L (3.5-5.1) Chloride Level 100 mmol/L (98-107) Carbon Dioxide Level 25 mmol/L (21-32) Anion Gap 12 (6-14) Blood Urea Nitrogen 67 mg/dL (8-26) Creatinine 8.2 mg/dL (0.7-1.3) Estimated GFR (Cockcroft-Gault) 6.9 Glucose Level 125 mg/dL (70-99) Calcium Level 8.3 mg/dL (8.5-10.1) Glucose (Fingerstick) 120 mg/dL (70-99) Results All relevant outside records, renal labs, imaging studies, telemetry/EKG's were reviewed. Justicifation of Admission Dx: Justifications for Admission: Justification of Admission Dx: Yes JEAN PAUL CESPEDES MD Apr 29, 2020 11:19
[2020-04-29] MEDS: SEVELAMER CARBONATE 800 MG TABLET. PO SCH ×2 (12:00→17:53)
--- NOTE | 2020-04-29 12:40 | NUR ---
SS following up with discharge planning. SS reviewed pt chart and discussed with pt RN. Pt had heart cath today. Pt currently requiring oxygen. SS notified pt's RN that pt has no home oxygen at home. SS will continue to follow for discharge planning.
--- NOTE | 2020-04-29 13:23 | NUR ---
SS following up with discharge planning. SS received phone contact from [facility] reporting that they will not be able to accept pt back on services. SS will continue to follow for discharge planning.
[2020-04-29] MEDS: DOCUSATE SODIUM 100 MG CAPSULE. PO SCH (15:55)
[2020-04-29] MEDS: LUBIPROSTONE 24 MCG CAPSULE PO SCH (15:55)
[2020-04-29] MEDS: FOLIC/VIT B COMP W-C (RENAL) TABLET. PO SCH (15:55)
--- NOTE | 2020-04-29 16:43 | NUR ---
See chart for frequent VS s/p cath. Patient went to dialysis right from cath procedure
[2020-04-29] MEDS: PANTOPRAZOLE 40 MG TABLET.DR. PO SCH (17:52)
[2020-04-29] MEDS: POLYETHYLENE GLYCOL 3350 17 GM PACKET. PO SCH (21:00)
[2020-04-29] MEDS: PSYLLIUM HUSK (SUGAR FREE) 1 PKT PACKET PO SCH (21:00)
[2020-04-29] MEDS: CITALOPRAM 20 MG TABLET. PO SCH (21:20)
[2020-04-29] MEDS: diphenhydrAMINE HCL 25 MG CAPSULE PO SCH (21:20)
[2020-04-29] MEDS: QUEtiapine 100 MG TABLET. PO SCH (21:20)
[2020-04-29] MEDS: traZODone 50 MG TABLET. PO SCH (21:21)
[2020-04-29] MEDS: INSULIN GLARGINE SYRINGE. SQ SCH (21:35)
[2020-04-30] VITALS (7 sets, daily range): BP systolic 117–196; BP diastolic 60–84
[2020-04-30] MEDS: hydrALAZINE 20 MG/ML VIAL. IVP PRN (01:22)
[2020-04-30] MEDS: HEPARIN for SUB-Q USE 5,000 UNIT/ML VIAL. SQ SCH ×3 (06:25→23:30)
[2020-04-30] MEDS: INSULIN LISPRO 300 UNITS/3 ML VIAL. SQ SCH ×4 (07:30→21:00)
[2020-04-30] MEDS: LUBIPROSTONE 24 MCG CAPSULE PO SCH (08:54)
[2020-04-30] MEDS: busPIRone 5 MG TABLET. PO SCH ×2 (08:55→21:30)
[2020-04-30] MEDS: RANOLAZINE 500 MG TAB.ER.12H PO SCH ×2 (08:57→21:33)
[2020-04-30] MEDS: ASPIRIN CHEWABLE 81 MG TABLET. PO SCH (08:57)
[2020-04-30] MEDS: FUROSEMIDE 80 MG TABLET. PO SCH ×2 (08:58→17:22)
[2020-04-30] MEDS: LISINOPRIL 20 MG TABLET PO SCH (08:58)
[2020-04-30] MEDS: CARVEDILOL 12.5 MG TABLET. PO SCH ×2 (08:59→17:21)
[2020-04-30] MEDS: DIVALPROEX DELAYED RELEASE 500 MG TABLET.DR. PO SCH ×2 (08:59→21:30)
[2020-04-30] MEDS: DOCUSATE SODIUM 100 MG CAPSULE. PO SCH (08:59)
[2020-04-30] MEDS: FOLIC/VIT B COMP W-C (RENAL) TABLET. PO SCH (09:00)
[2020-04-30] MEDS: hydrALAZINE 25 MG TABLET PO SCH ×2 (09:00→21:30)
[2020-04-30] MEDS: PANTOPRAZOLE 40 MG TABLET.DR. PO SCH ×2 (09:00→17:22)
[2020-04-30] MEDS: amLODIPine BESYLATE 10 MG TABLET PO SCH (09:01)
[2020-04-30] MEDS: SEVELAMER CARBONATE 800 MG TABLET. PO SCH ×3 (09:03→17:24)
[2020-04-30] MEDS: DICLOFENAC SODIUM 1% TOPICAL GEL 100GM TUBE. TP SCH ×2 (09:09→21:29)
--- NOTE | 2020-04-30 10:29 | PDOC ---
Objective: Objective: D/w nurse - low blood sugar this morning, drowsy - helped him eat some bites of breakfast. Vital Signs: Vital Signs Date Time Temp Pulse Resp B/P (MAP) Pulse Ox O2 Delivery O2 Flow Rate FiO2 04/30/20 09:01 62 149/70 04/30/20 07:00 98.0 18 92 Nasal Cannula 2.0 98.0 Labs: Laboratory Tests Test 04/29/20 17:04 04/29/20 21:10 04/30/20 07:40 Glucose (Fingerstick) 114 mg/dL 177 mg/dL 59 mg/dL Imaging: Cardiac Cath 04/29 Conclusion 1. Normal left-sided filling pressures 2. Mild LV dysfunction with ejection fraction of 40 to 45% 3. Severe triple-vessel disease 4. 4 out of 4 bypass grafts patent Recommendations Aggressive Medical Therapy PE: GEN: NAD LUNGS: CTAB HEART: RRR ABD: flinched w/ palpation of epigastrium/RUQ NEURO/PSYCH: difficult o rouse A/P: CAD, DM, ESRD Elevated lipase GERD -- Continue same per GI w/ BID PPI. Justicifation of Admission Dx: Justifications for Admission: Justification of Admission Dx: Yes DARRIN BOATENG Apr 30, 2020 10:29
--- NOTE | 2020-04-30 10:49 | PDOC ---
SUBJECTIVE ROS seen on HD, no complaints S/P cardiac cath earlier today OBJECTIVE Vital Signs Vital Signs Date Time Temp Pulse Resp B/P (MAP) Pulse Ox O2 Delivery O2 Flow Rate FiO2 04/30/20 10:30 98.0 75 18 117/77 (90) 99 Room Air 98.0 04/30/20 07:00 2.0 I & 0 Intake and Output 04/30/20 07:00 Intake Total 1500 ml Output Total 200 ml Balance 1300 ml Intake Oral 1500 ml Output Urine Total 200 ml PHYSICAL EXAM Physical Exam GENERAL: NAD HEENT: OM moist NECK: supple CARDIOVASCULAR: S1, S2. LUNGS: Diminished breath sounds at the base ABDOMEN: Soft, obese , PD catheter in place : No Hale. EXTREMITIES: no edema NEURO- Grossly normal DERM No Rash : DIAGNOSIS/ASSESSMENT Assessment & Plan ESRD:On TTS under Dr Hernandez No indication for HD today Chest pain - s/p cardiac cath 04/29 Normal left-sided filling pressures, Mild LV dysfunction with ejection fraction of 40 to 45%, Severe triple-vessel disease 4 out of 4 bypass grafts patent Diabetes, insulin-dependent. Chronic pain syndrome- has been on narcotics Hx of CAD s/p CABG Chronic congestive heart failure Hx of Depression. History of previous hip fracture from fall, left femoral fracture, had surgeries done for that. Anemia: No indication for CHLOE HTN- Hypotensive at presentation, stable currently History of drug overdose with both morphine as well as fentanyl. Seizure disorder. COMMENT/RELEVANT DATA Meds Current Medications Medications (Trade) Dose Ordered Sig/Brittani Start Time Stop Time Status Last Admin Dose Admin Amlodipine Besylate (Norvasc) 10 mg DAILY 04/28/20 09:00 04/30/20 09:01 10 MG Aspirin (Aspirin Chewable) 81 mg DAILY 04/28/20 09:00 04/30/20 08:57 81 MG Aspirin (Katie Aspirin) 325 mg 1X ONCE 04/27/20 16:15 04/27/20 16:16 DC 04/27/20 16:48 325 MG Bisacodyl (Dulcolax Supp) 10 mg PRN DAILY PRN 04/27/20 21:00 UNV Buspirone HCl (Buspar) 5 mg BID 04/27/20 21:15 04/30/20 08:55 5 MG Carvedilol (Coreg) 12.5 mg BIDWMEALS 04/28/20 08:00 04/30/20 08:59 12.5 MG Citalopram Hydrobromide (CeleXA) 40 mg HS 04/27/20 21:15 04/29/20 21:20 40 MG Dextrose (Dextrose 50%-Water Syringe) 12.5 gm PRN Q15MIN PRN 04/27/20 20:30 04/30/20 07:50 25 GM Diclofenac Sodium (Voltaren) 1 jv BID 04/28/20 09:00 04/30/20 09:09 1 JV Diphenhydramine HCl (Benadryl) 25 mg 1X PRN PRN 04/29/20 08:30 04/30/20 08:29 DC Divalproex Sodium (Depakote) 1,000 mg BID 04/27/20 21:00 04/30/20 08:59 1,000 MG Docusate Sodium (Colace) 100 mg DAILY 04/28/20 09:00 04/30/20 08:59 100 MG Fentanyl Citrate (Fentanyl 2ml Vial) 100 mcg 1X ONCE 04/29/20 09:15 04/29/20 09:16 DC 04/29/20 09:46 75 MCG Furosemide (Lasix) 120 mg BID92 04/28/20 09:00 04/30/20 08:58 120 MG Heparin Sodium (Porcine) (Heparin Sodium) 5,000 unit Q8HRS 04/27/20 22:00 04/30/20 06:25 5,000 UNIT Heparin Sodium/ Sodium Chloride (HEPARIN for ARTERIAL LINE FLUSH) 1,000 unit 1X ONCE 04/29/20 09:15 04/29/20 09:16 DC 04/29/20 09:44 1,000 UNIT Hydralazine HCl (Apresoline Inj) 10 mg PRN Q4HRS PRN 04/27/20 21:00 04/30/20 01:22 10 MG Hydralazine HCl (Apresoline) 25 mg BID 04/27/20 21:00 04/30/20 09:00 25 MG Info (PHARMACY MONITORING -- do not chart) 1 each PRN DAILY PRN 04/29/20 08:30 Insulin Glargine (Lantus Syringe) 42 unit QHS 04/27/20 21:30 04/29/20 21:35 42 UNIT Insulin Human Lispro (HumaLOG) 0-7 UNITS TIDACHC 04/27/20 21:15 Iodixanol (Visipaque 320) 100 ml STK-MED ONCE 04/29/20 09:32 04/29/20 09:32 DC Lactulose (Lactulose) 20 gm PRN DAILY PRN 04/27/20 21:00 Lidocaine HCl (Lidocaine 1% 20ml Vial) 20 ml 1X ONCE 04/29/20 09:15 04/29/20 09:16 DC 04/29/20 09:45 15 ML Lisinopril (Prinivil) 20 mg DAILY 04/28/20 09:00 04/30/20 08:58 20 MG Lorazepam (Ativan) 0.5 mg PRN DAILY PRN 04/29/20 08:30 Lubiprostone (Amitiza) 24 mcg DAILY 04/28/20 09:00 04/30/20 08:54 24 MCG Midazolam HCl (Versed) 5 mg 1X ONCE 04/29/20 09:15 04/29/20 09:16 DC 04/29/20 09:45 3 MG Nitroglycerin (Nitrostat) 0.4 mg PRN Q5MIN PRN 04/27/20 20:30 Non-Formulary Medication (Insulin Degludec (Tresiba)) 42 unit QHS 04/27/20 21:00 UNV Ondansetron HCl (Zofran Odt) 4 mg PRN Q8HRS PRN 04/27/20 21:00 Ondansetron HCl (Zofran) 4 mg PRN Q4HRS PRN 04/27/20 20:30 Oxycodone/ Acetaminophen (Percocet 10/325) 1 tab PRN BID PRN 04/27/20 20:30 04/29/20 21:25 1 TAB Pantoprazole Sodium (PROTONIX VIAL for IV PUSH) 40 mg BIDAC 04/29/20 07:30 04/29/20 11:50 DC Pantoprazole Sodium (Protonix) 40 mg BIDAC 04/29/20 16:30 04/30/20 09:00 40 MG Polyethylene Glycol (miraLAX PACKET) 17 gm QHS 04/27/20 21:00 04/28/20 20:11 17 GM Psyllium Hydrophilic Mucilloid (Metamucil Fiber Packet) 1 pkt QHS 04/27/20 21:15 04/28/20 20:05 1 PKT Quetiapine Fumarate (SEROquel) 100 mg QHS 04/27/20 21:00 04/29/20 21:20 100 MG Ranolazine (Ranexa) 500 mg BID 04/27/20 21:15 04/30/20 08:57 500 MG Sevelamer Carbonate (Renvela) 800 mg TIDWMEALS 04/28/20 08:00 04/30/20 09:03 800 MG Sodium Chloride 1,000 ml @ 400 mls/hr Q2H30M PRN 04/29/20 08:16 04/29/20 20:15 DC Trazodone HCl (Desyrel) 150 mg HS 04/27/20 21:00 04/29/20 21:21 150 MG Vitamin B Complex/ Vitamin C (Gissel-Irvin) 1 tab DAILY 04/28/20 09:00 04/30/20 09:00 1 TAB Lab Laboratory Tests Test 04/29/20 17:04 04/29/20 21:10 04/30/20 07:40 Glucose (Fingerstick) 114 mg/dL (70-99) 177 mg/dL (70-99) 59 mg/dL (70-99) Results All relevant outside records, renal labs, imaging studies, telemetry/EKG's were reviewed. Justicifation of Admission Dx: Justifications for Admission: Justification of Admission Dx: Yes JEAN PAUL CESPEDES MD Apr 30, 2020 10:49
--- NOTE | 2020-04-30 11:38 | NUR ---
SS following up with discharge planning. SS reviewed pt chart and discussed with pt RN. Pt is currently requiring oxygen. Pt has no home oxygen at home. PT/OT ordered. SS contacted [facility], ; fax [phone], and verified that pt is a Peritoneal Dialysis pt at there facility. SS will continue to follow for discharge planning.
--- NOTE | 2020-04-30 13:05 | PDOC3 ---
Discharge Summary Visit Information Date of Admission: Apr 27, 2020 Date of Discharge: Apr 30, 2020 Final Diagnosis Atypical CP - neg trop and negative EKG. Likely costochondritis and possibly pancreatitis, but with his cardiac history and largely elevated BNP, will consult cardiology Elevated lipase - acute on chronic pancreatitis, CAD s/p CABG. Cath 2016 with patent grafts LV dysfunction with ejection fraction of 45% and distal anterior, apical and distal inferior hypokinesis. HTN - will cont meds BP disorder - on seroquel Seizures - on depakote Acute on chronic diastolic CHF; Echo 07/19 with preserved LV systolic function - will diurese, still makes some urine, likely gained weight 2/2 starting PD, will need UF Hyperlipidemia - cont statin Diabetes, II--insulin dependent - will cont 42u glargine and sliding scale ESRD on HD - transitioning to PD, will consult nephrology Problems Medical Problems: (1) Chest pain Status: Acute Brief Hospital Course Allergies Allergies Coded Allergies Type Severity Reaction Last Updated Verified hydromorphone Allergy Severe Anaphylaxis 04/04/20 Yes Vital Signs Vital Signs Date Time Temp Pulse Resp B/P (MAP) Pulse Ox O2 Delivery O2 Flow Rate FiO2 04/30/20 10:30 98.0 75 18 117/77 (90) 99 Room Air 98.0 04/30/20 07:00 2.0 Lab Results Laboratory Tests Test 04/28/20 16:41 04/28/20 20:04 04/29/20 07:20 04/29/20 07:51 Glucose (Fingerstick) 123 mg/dL (70-99) 139 mg/dL (70-99) 120 mg/dL (70-99) Sodium Level 137 mmol/L (136-145) Potassium Level 4.6 mmol/L (3.5-5.1) Chloride Level 100 mmol/L (98-107) Carbon Dioxide Level 25 mmol/L (21-32) Anion Gap 12 (6-14) Blood Urea Nitrogen 67 mg/dL (8-26) Creatinine 8.2 mg/dL (0.7-1.3) Estimated GFR (Cockcroft-Gault) 6.9 Glucose Level 125 mg/dL (70-99) Calcium Level 8.3 mg/dL (8.5-10.1) Test 04/29/20 17:04 04/29/20 21:10 04/30/20 07:40 7/1/20 11:22 Glucose (Fingerstick) 114 mg/dL (70-99) 177 mg/dL (70-99) 59 mg/dL (70-99) 186 mg/dL (70-99) Laboratory Tests Test 04/29/20 17:04 04/29/20 21:10 04/30/20 07:40 04/30/20 11:22 Glucose (Fingerstick) 114 mg/dL (70-99) 177 mg/dL (70-99) 59 mg/dL (70-99) 186 mg/dL (70-99) Brief Hospital Course Mr Bedolla 54 yo M w/ PMHx smoker, CAD, ischemic CM, ESRD on HD, BP disorder, seizure disorder, DM2, HTN who presents with epigastric chest pain radiating to his back since the past 4 days. Had band-like squeezing chest pain and to the back. He is s/p PD cath placement 04/04/2020 with no signs of peritonitis. Negative COVID-19 on March 12, 2020. had previously been on hospice care, and had improved, Cardiac workup negative in ED. cxr concerning for Left basilar atelectasis. Discharge Information Condition at Discharge: Improved Follow Up: Weeks Disposition/Orders: D/C to Home Scheduled Amlodipine Besylate (Norvasc) 10 Mg Tablet, 10 MG PO DAILY, (Reported) Entered as Reported by: Betzy Norris on 07/24/18 0318 Last Action: Continued on 04/27/202031 by GALI ROMERO MD Aspirin (Aspirin) 81 Mg Tab.chew, 1 TAB PO DAILY for , #30 Ref 3 (Reported) Entered as Reported by: TREMAYNE ROMERO, RN on 07/16/19 1753 Last Action: Continued on 04/27/202031 by GALI ROMERO MD Buspirone Hcl (Buspirone Hcl) 5 Mg Tablet, 5 MG PO BID for ., (Reported) Entered as Reported by: BHUPENDRA PEREZ on 01/17/20 1035 Last Action: Continued on 04/27/202031 by GALI ROMERO MD Carvedilol (Coreg) 25 Mg Tablet, 12.5 MG PO BIDWMEALS for HTN, (Reported) Entered as Reported by: Betzy Norris on 07/24/18 0318 Last Action: Converted on 04/27/202031 by GALI ROMERO MD Citalopram Hydrobromide (Citalopram Hbr) 40 Mg Tablet, 40 MG PO HS for anxiety, (Reported) Entered as Reported by: BRENDON SEGURA on 12/30/19 1016 Last Action: Converted on 04/27/202031 by GALI ROMERO MD Diphenhydramine Hcl (Diphenhydramine Hcl) 25 Mg Tablet, 25 MG PO QHS for sleeo, (Reported) Entered as Reported by: SEVEN NIELSEN on 04/03/20 1236 Last Action: Converted on 04/27/202031 by GALI ROMERO MD Divalproex Sodium (Divalproex Sodium) 500 Mg Tablet.dr, 2 TAB PO BID for , #60 Ref 1 (Reported) Entered as Reported by: TREMAYNE ROMERO RN on 07/16/19 175 Last Action: Continued on 04/27/202031 by GALI ROMERO MD Docusate Sodium (Docusate Sodium) 100 Mg Capsule, 1 CAP PO DAILY for , #30 (Reported) Entered as Reported by: TREMAYNE ROMERO RN on 07/16/191752 Last Action: Continued on 04/27/202031 by GALI ROMERO MD Folic Acid/Vit Bcomp,C (Renal-Irvin Tablet) 0.8 Mg Tablet, 0.8 MG PO DAILY for supplement, (Reported) Entered as Reported by: SEVEN NIELSEN on 04/03/20 1302 Last Action: Continued on 04/27/202031 by GALI ROMERO MD Furosemide (Furosemide) 80 Mg Tablet, 120 MG PO BID for water pill, (Reported) Entered as Reported by: PETE AUGUSTINE on 03/11/204 Last Action: Continued on 04/27/202031 by GALI ROMERO MD Gabapentin (Gabapentin) 400 Mg Capsule, 400 MG PO BID for pain, (Reported) Entered as Reported by: BRENDON SEGURA on 12/30/19 1016 Last Action: HELD on 04/27/202030 by GALI ROMERO MD Hydralazine Hcl (Hydralazine Hcl) 25 Mg Tablet, 1 TAB PO BID for hypertension, #90 Ref 5 (Reported) Entered as Reported by: BRENDON SEGURA on 12/30/19 1016 Last Action: Continued on 04/27/202031 by GALI ROMERO MD Insulin Degludec (Tresiba) 100 Unit/1 Ml Vial, 42 UNIT SQ DAILY for Diabetes, (Reported) Entered as Reported by: BHUPENDRA PEREZ on 01/17/20 1058 Last Action: Converted on 04/27/202031 by GALI ROMERO MD Lisinopril (Lisinopril) 20 Mg Tablet, 20 MG PO DAILY for FOR HYPERTENSION, #30 Ref 0 (Reported) Entered as Reported by: BHUPENDRA PEREZ on 01/17/20 1035 Last Action: Continued on 04/27/202031 by GALI ROMERO MD Lorazepam (Ativan) 1 Mg Tablet, 0.5 MG PO Q4HRS for anxiety, (Reported) Entered as Reported by: BHUPENDRA PEREZ on 01/17/20 105 Last Action: Continued on 04/27/202031 by GALI ROMERO MD Lubiprostone (Amitiza) 24 Mcg Capsule, 1 CAP PO DAILY for , #60 Ref 5 (Reported) Entered as Reported by: TREMAYNE ROMERO RN on 07/16/191752 Last Action: Continued on 04/27/202031 by GALI ROMERO MD Metolazone (Metolazone) 5 Mg Tablet, 5 MG PO DAILY, #30 Ref 0 (Reported) Entered as Reported by: Betzy Norris on 07/24/18 0302 Oxycodone/Apap 10-325 (Percocet 10-325 Mg Tablet ) 1 Each Tablet, 1 TAB PO BID for pain, Ref 0 (Reported) Entered as Reported by: BHUPENDRA PEREZ on 01/17/20 105 Last Action: HELD on 04/27/202030 by GALI ROMERO MD Pantoprazole Sodium (Protonix) 20 Mg Tablet.dr, 40 MG PO DAILY for , (Reported) Entered as Reported by: TREMAYNE ROMERO RN on 07/16/191752 Last Action: Converted on 04/27/202031 by GALI ROMERO MD Quetiapine Fumarate (Seroquel) 100 Mg Tablet, 1 TAB PO QHS for , #30 Ref 1 (Reported) Entered as Reported by: TREMAYNE ROEMRO RN on 07/16/191752 Last Action: Continued on 04/27/202031 by GALI ROMERO MD Ranolazine (Ranexa) 1,000 Mg Tab.er.12h, 0.5 TAB PO BID for , #60 Ref 5 (Reported) Entered as Reported by: TREMAYNE ROMERO RN on 07/16/191752 Last Action: Converted on 04/27/202031 by GALI ROMERO MD Sevelamer Carbonate (Renvela) 800 Mg Tablet, 800 MG PO TIDWMEALS, (Reported) Entered as Reported by: Betzy Norris on 07/24/18 030 Last Action: Continued on 04/27/202031 by GALI ROMERO MD Trazodone Hcl (Trazodone Hcl) 300 Mg Tablet, 150 MG PO HS for insomnia, (Reported) Entered as Reported by: Betzy Norris on 07/24/18 0302 Last Action: Converted on 04/27/202031 by GALI ROMERO MD [Diclofenac Sodium] 100 GM GEL..GRAM., 1 MAYRA TP BID for Costochondritis for 30 Days, #60 Prescribed by: GALI ROMERO MD on 03/14/20 1053 Last Action: Converted on 04/27/202031 by GALI ROMERO MD Scheduled PRN Cyclobenzaprine Hcl (Cyclobenzaprine Hcl) 10 Mg Tablet, 1 TAB PO TID PRN PRN for MUSCLE SPASMS, #90 (Reported) Entered as Reported by: ELVA WOOD on 08/31/19 0849 Ibuprofen (Ibuprofen) 600 Mg Tablet, 600 MG PO PRN Q12HR PRN for INFLAMMATION, (Reported) Entered as Reported by: SEVEN NIELSEN on 04/03/20 1236 Last Action: HELD on 04/27/202030 by GALI ROMERO MD Insulin Aspart (Novolog) 100 Unit/1 Ml Vial, 0 SQ PRN TID PRN for sliding scale, (Reported) Entered as Reported by: SEVEN NIELSEN on 04/03/20 1302 Last Action: HELD on 04/27/202030 by GALI ROMERO MD Nitroglycerin (NITROGLYCERIN SubLingual) 0.4 Mg Tab.subl, 0.4 MG SL PRN Q5MIN PRN for CHEST PAIN, (Reported) Entered as Reported by: BRENDON SEGURA on 12/30/19 1016 Last Action: Continued on 04/27/202031 by GALI ROMERO MD Ondansetron (Ondansetron Odt) 4 Mg Tab.rapdis, 1 TAB PO PRN Q6-8HRS PRN for N AUSEA, #16 Prescribed by: MOLINA ART D.O. on 04/20/202136 Last Action: Continued on 04/27/202031 by GALI ROMERO MD Ondansetron Hcl (Zofran) 4 Mg Tablet, 1 TAB PO PRN Q4HRS PRN for NAUSEA, #20 (Re ported) Entered as Reported by: BRENDON SEGURA on 12/30/19 1016 Last Action: Converted on 04/27/202031 by GALI ROMERO MD Oxycodone/Apap 10-325 (Percocet 10-325 Mg Tablet ) 1 Each Tablet, 1 TAB PO PRN BID PRN for SEVERE PAIN 7-10 MDD 2 Tablet(s) for 5 Days, #20 Ref 0 Prescribed by: RUPINDER CASIANO on 04/04/20 1404 Last Action: Continued on 04/27/202031 by GALI ROMERO MD Justicifation of Admission Dx: Justifications for Admission: Justification of Admission Dx: Yes SHIRA LANE MD Apr 30, 2020 13:05
--- NOTE | 2020-04-30 15:01 | PDOC ---
KALIN DIEHL BOOM TENDER 04/30/20 1501: CARDIO Progress Notes Date and Time Date of Service 04/30/2020 Time of Evaluation 1225 Subjective Subjective: No Chest Pain, No shortness of breath, No Palpitations Vitals Vitals Vital Signs Date Time Temp Pulse Resp B/P (MAP) Pulse Ox O2 Delivery O2 Flow Rate FiO2 04/30/20 14:11 98.5 74 18 129/66 (87) 97 Room Air 98.5 04/30/20 07:00 2.0 Weight Weight [ ] Input and Output Intake and Output Intake and Output 04/30/20 07:00 Intake Total 1500 ml Output Total 200 ml Balance 1300 ml Intake Oral 1500 ml Output Urine Total 200 ml Laboratory Labs Laboratory Tests Test 04/29/20 17:04 04/29/20 21:10 04/30/20 07:40 04/30/20 11:22 Glucose (Fingerstick) 114 mg/dL (70-99) 177 mg/dL (70-99) 59 mg/dL (70-99) 186 mg/dL (70-99) Microbiology Micro Microbiology 04/27/20 Blood Culture - Preliminary, Resulted NO GROWTH AFTER 2 DAYS Physical Exam HEENT: Neck Supple W Full Motion Chest: Symmetric LUNGS: Clear to Auscultation Heart: S1S2, RRR (SR), no murmurs Abdomen: Soft N/T Extremities: No Edema Neurology: alert, oriented, follow commands Assessment Assessment 1. Atypical CP: possibly GI. LHC revealed 3VD, 4 out of 4 bypass grafts patent 2. CAD s/p CABG. Cath 2017 with patent grafts as noted above. Recent MPI as above 4. HTN: controlled 5. Chronic HFpEF: compensated 6. Hyperlipidemia; no statin noted on regimen 7. Diabetes, II 8. ESRD on HD 9. Suspect COPD with continued tobaccoism 10. Encephalopathy: per PCP Recommendations 1. ASA, Continue secondary prevention measures. lipids and if no allergy then will place on statin 2. Fluid off-loading via HD 3. Follow in office Justicifation of Admission Dx: Justifications for Admission: Justification of Admission Dx: Yes KADEN ALTMAN MD 05/01/20 0924: CARDIO Progress Notes Plan Plan Late entry for 04/30/2020 Pt. seen and examined. Agree with above [employer] TE[employer]ICAL [employer]CHIT[employer] note. KALIN DIEHL BOOM TENDER Apr 30, 2020 15:01 KADEN ALTMAN MD May 01, 2020 09:24
[2020-04-30 16:06] LABS: CHOLESTEROL/HDL RATIO 5.6
[2020-04-30] MEDS: QUEtiapine 100 MG TABLET. PO SCH (21:29)
[2020-04-30] MEDS: CITALOPRAM 20 MG TABLET. PO SCH (21:29)
[2020-04-30] MEDS: POLYETHYLENE GLYCOL 3350 17 GM PACKET. PO SCH (21:31)
[2020-04-30] MEDS: traZODone 50 MG TABLET. PO SCH (21:31)
[2020-04-30] MEDS: PSYLLIUM HUSK (SUGAR FREE) 1 PKT PACKET PO SCH (21:31)
[2020-04-30] MEDS: diphenhydrAMINE HCL 25 MG CAPSULE PO SCH (21:32)
[2020-04-30] MEDS: oxyCODONE/APAP 10/325 1 TAB TABLET PO PRN (21:32)
[2020-04-30] MEDS: INSULIN GLARGINE SYRINGE. SQ SCH (23:27)
[2020-05-01] MEDS: fentaNYL PF VIAL 100 MCG/2 ML VIAL IVP PRN ×2 (00:13→08:17)
[2020-05-01 03:15] VITALS: BP 139/60
[2020-05-01] MEDS: HEPARIN for SUB-Q USE 5,000 UNIT/ML VIAL. SQ SCH (05:30)
[2020-05-01 07:00] VITALS: BP 142/62
[2020-05-01 07:20] LABS: CALCIUM 8.1 mg/dL (8.5-10.1); CREATININE 8.2 mg/dL (0.7-1.3); GFR 6.9; POTASSIUM 4.2 mmol/L (3.5-5.1)
[2020-05-01] MEDS: INSULIN LISPRO 300 UNITS/3 ML VIAL. SQ SCH ×2 (07:30→11:30)
[2020-05-01] MEDS ORDERED: IV NORMAL SALINE 1000ML BAG 1,000 ML IV PRN ×2 (07:34)
[2020-05-01] MEDS ORDERED: DIALYSIS PATIENT. MC PRN ×2 (07:45)
[2020-05-01] MEDS ORDERED: ALBUMIN HUMAN 25% 200 ML IV PRN (07:45)
[2020-05-01 08:00] VITALS: BP 164/68
[2020-05-01] MEDS: SEVELAMER CARBONATE 800 MG TABLET. PO SCH ×2 (08:00→12:37)
[2020-05-01] MEDS: CARVEDILOL 12.5 MG TABLET. PO SCH (08:00)
[2020-05-01] MEDS: DICLOFENAC SODIUM 1% TOPICAL GEL 100GM TUBE. TP SCH (09:00)
--- NOTE | 2020-05-01 10:24 | PDOC ---
SUBJECTIVE ROS seen on HD, no complaints OBJECTIVE Vital Signs Vital Signs Date Time Temp Pulse Resp B/P (MAP) Pulse Ox O2 Delivery O2 Flow Rate FiO2 05/01/20 08:17 93 Nasal Cannula 2.0 05/01/20 08:00 164/68 (100) 05/01/20 07:00 97.8 69 16 97.8 I & 0 Intake and Output 05/01/20 07:00 Intake Total 1060 ml Balance 1060 ml Intake Oral 1060 ml PHYSICAL EXAM Physical Exam GENERAL: NAD HEENT: OM moist NECK: supple CARDIOVASCULAR: S1, S2. LUNGS: Diminished breath sounds at the base ABDOMEN: Soft, obese , PD catheter in place : No Hale. EXTREMITIES: no edema NEURO- Grossly normal DERM No Rash : DIAGNOSIS/ASSESSMENT Assessment & Plan ESRD:On TTS under Dr Hernandez seen on HD, tolerating well, continue per orders, Ravi Meraz In PD training as OP Chest pain - s/p cardiac cath 04/29 Normal left-sided filling pressures, Mild LV dysfunction with ejection fraction of 40 to 45%, Severe triple-vessel disease 4 out of 4 bypass grafts patent . Will follow with card as OP Diabetes, insulin-dependent. Chronic pain syndrome- has been on narcotics Hx of CAD s/p CABG Chronic congestive heart failure Hx of Depression. History of previous hip fracture from fall, left femoral fracture, had surgeries done for that. Anemia: No indication for CHLOE HTN- Hypotensive at presentation, stable currently History of drug overdose with both morphine as well as fentanyl. Seizure disorder. COMMENT/RELEVANT DATA Meds Current Medications Medications (Trade) Dose Ordered Sig/Brittani Start Time Stop Time Status Last Admin Dose Admin Albumin Human 200 ml @ 200 mls/hr 1X PRN PRN 05/01/20 07:45 05/01/20 13:44 Amlodipine Besylate (Norvasc) 10 mg DAILY 04/28/20 09:00 04/30/20 09:01 10 MG Aspirin (Aspirin Chewable) 81 mg DAILY 04/28/20 09:00 04/30/20 08:57 81 MG Aspirin (Katie Aspirin) 325 mg 1X ONCE 04/27/20 16:15 04/27/20 16:16 DC 04/27/20 16:48 325 MG Atorvastatin Calcium (Lipitor) 10 mg QHS 05/01/20 21:00 Bisacodyl (Dulcolax Supp) 10 mg PRN DAILY PRN 04/27/20 21:00 UNV Buspirone HCl (Buspar) 5 mg BID 04/27/20 21:15 04/30/20 21:30 5 MG Carvedilol (Coreg) 12.5 mg BIDWMEALS 04/28/20 08:00 04/30/20 17:21 12.5 MG Citalopram Hydrobromide (CeleXA) 40 mg HS 04/27/20 21:15 04/30/20 21:29 40 MG Dextrose (Dextrose 50%-Water Syringe) 12.5 gm PRN Q15MIN PRN 04/27/20 20:30 04/30/20 07:50 25 GM Diclofenac Sodium (Voltaren) 1 jv BID 04/28/20 09:00 04/30/20 21:29 1 JV Diphenhydramine HCl (Benadryl) 25 mg 1X PRN PRN 04/29/20 08:30 04/30/20 08:29 DC Divalproex Sodium (Depakote) 1,000 mg BID 04/27/20 21:00 04/30/20 21:30 1,000 MG Docusate Sodium (Colace) 100 mg DAILY 04/28/20 09:00 04/30/20 08:59 100 MG Fentanyl Citrate (Fentanyl 2ml Vial) 100 mcg 1X ONCE 04/29/20 09:15 04/29/20 09:16 DC 04/29/20 09:46 75 MCG Furosemide (Lasix) 120 mg BID92 04/28/20 09:00 04/30/20 17:22 120 MG Heparin Sodium (Porcine) (Heparin Sodium) 5,000 unit Q8HRS 04/27/20 22:00 05/01/20 05:30 5,000 UNIT Heparin Sodium/ Sodium Chloride (HEPARIN for ARTERIAL LINE FLUSH) 1,000 unit 1X ONCE 04/29/20 09:15 04/29/20 09:16 DC 04/29/20 09:44 1,000 UNIT Hydralazine HCl (Apresoline Inj) 10 mg PRN Q4HRS PRN 04/27/20 21:00 04/30/20 01:22 10 MG Hydralazine HCl (Apresoline) 25 mg BID 04/27/20 21:00 04/30/20 21:30 25 MG Info (PHARMACY MONITORING -- do not chart) 1 each PRN DAILY PRN 05/01/20 07:45 UNV Insulin Glargine (Lantus Syringe) 42 unit QHS 04/27/20 21:30 04/30/20 23:27 42 UNIT Insulin Human Lispro (HumaLOG) 0-7 UNITS TIDACHC 04/27/20 21:15 Iodixanol (Visipaque 320) 100 ml STK-MED ONCE 04/29/20 09:32 04/29/20 09:32 DC Lactulose (Lactulose) 20 gm PRN DAILY PRN 04/27/20 21:00 Lidocaine HCl (Lidocaine 1% 20ml Vial) 20 ml 1X ONCE 04/29/20 09:15 04/29/20 09:16 DC 04/29/20 09:45 15 ML Lisinopril (Prinivil) 20 mg DAILY 04/28/20 09:00 04/30/20 08:58 20 MG Lorazepam (Ativan) 0.5 mg PRN DAILY PRN 04/29/20 08:30 Lubiprostone (Amitiza) 24 mcg DAILY 04/28/20 09:00 04/30/20 08:54 24 MCG Midazolam HCl (Versed) 5 mg 1X ONCE 04/29/20 09:15 04/29/20 09:16 DC 04/29/20 09:45 3 MG Nitroglycerin (Nitrostat) 0.4 mg PRN Q5MIN PRN 04/27/20 20:30 Non-Formulary Medication (Insulin Degludec (Tresiba)) 42 unit QHS 04/27/20 21:00 UNV Ondansetron HCl (Zofran Odt) 4 mg PRN Q8HRS PRN 04/27/20 21:00 Ondansetron HCl (Zofran) 4 mg PRN Q4HRS PRN 04/27/20 20:30 Oxycodone/ Acetaminophen (Percocet 10/325) 1 tab PRN BID PRN 04/27/20 20:30 04/30/20 21:32 1 TAB Pantoprazole Sodium (PROTONIX VIAL for IV PUSH) 40 mg BIDAC 04/29/20 07:30 04/29/20 11:50 DC Pantoprazole Sodium (Protonix) 40 mg BIDAC 04/29/20 16:30 04/30/20 17:22 40 MG Polyethylene Glycol (miraLAX PACKET) 17 gm QHS 04/27/20 21:00 04/30/20 21:31 17 GM Psyllium Hydrophilic Mucilloid (Metamucil Fiber Packet) 1 pkt QHS 04/27/20 21:15 04/30/20 21:31 1 PKT Quetiapine Fumarate (SEROquel) 100 mg QHS 04/27/20 21:00 04/30/20 21:29 100 MG Ranolazine (Ranexa) 500 mg BID 04/27/20 21:15 04/30/20 21:33 500 MG Sevelamer Carbonate (Renvela) 800 mg TIDWMEALS 04/28/20 08:00 04/30/20 17:24 800 MG Sodium Chloride 1,000 ml @ 400 mls/hr Q2H30M PRN 05/01/20 07:34 05/01/20 19:33 Trazodone HCl (Desyrel) 150 mg HS 04/27/20 21:00 04/30/20 21:31 150 MG Vitamin B Complex/ Vitamin C (Gissel-Irvin) 1 tab DAILY 04/28/20 09:00 04/30/20 09:00 1 TAB Lab Laboratory Tests Test 04/30/20 11:22 04/30/20 16:24 04/30/20 23:19 05/01/20 06:30 Glucose (Fingerstick) 186 mg/dL (70-99) 160 mg/dL (70-99) 170 mg/dL (70-99) Sodium Level 133 mmol/L (136-145) Potassium Level 4.2 mmol/L (3.5-5.1) Chloride Level 95 mmol/L (98-107) Carbon Dioxide Level 30 mmol/L (21-32) Anion Gap 8 (6-14) Blood Urea Nitrogen 59 mg/dL (8-26) Creatinine 8.2 mg/dL (0.7-1.3) Estimated GFR (Cockcroft-Gault) 6.9 Glucose Level 121 mg/dL (70-99) Calcium Level 8.1 mg/dL (8.5-10.1) Test 05/01/20 07:21 Glucose (Fingerstick) 106 mg/dL (70-99) Results All relevant outside records, renal labs, imaging studies, telemetry/EKG's were reviewed. Justicifation of Admission Dx: Justifications for Admission: Justification of Admission Dx: Yes JEAN PAUL CESPEDES MD May 01, 2020 10:24
[2020-05-01] MEDS: oxyCODONE/APAP 10/325 1 TAB TABLET PO PRN (10:56)
[2020-05-01] MEDS: PANTOPRAZOLE 40 MG TABLET.DR. PO SCH (11:06)
--- NOTE | 2020-05-01 11:15 | PDOC ---
PROGRESS NOTES Chief Complaint Chief Complaint late entry, PT seen 7.1, had planned to DC, could not do so, too lethargic, Atypical CP - neg trop and negative EKG. Likely costochondritis and possibly pancreatitis, but with his cardiac history and largely elevated BNP, will consult cardiology Elevated lipase - with his symptoms it is unclear if this is pancreatitis, no remarks on CT abdomen, though it was a non-contrast study. S/p ciaran, has elevated alk phos, will consult GI for recs CAD s/p CABG. Cath 2016 with patent grafts LV dysfunction with ejection fraction of 45% and distal anterior, apical and distal inferior hypokinesis. HTN - will cont meds BP disorder - on seroquel Seizures - on depakote Acute on chronic diastolic CHF; Echo 07/19 with preserved LV systolic function - will diurese, still makes some urine, likely gained weight 2/2 starting PD, will need UF Hyperlipidemia - cont statin Diabetes, II--insulin dependent - will cont 42u glargine and sliding scale ESRD on HD - transitioning to PD, will consult nephrology Large weight gain - dry weight previously 110kg, now 130kg, possibly related to new PD status, will consult nephrology for further recs. FEN - Renal ADA PPX - heparin FULL CODE Dispo - inpatient for 2 midnights CATH 04/29 D/W RN in dialysis History of Present Illness History of Present Illness Mr Bedolla 54 yo M w/ PMHx smoker, CAD, ischemic CM, ESRD on HD, BP disorder, seizure disorder, DM2, HTN who presents with epigastric chest pain radiating to his back since the past 4 days. Notes band-like squeezing chest pain that radiates to the back. He states he also has some shortness of breath with a cough also. He also complains of distended abdomen and nausea and abdominal pain that is in the bilateral upper quadrants. He is s/p PD cath placement 04/04/2020 with no signs of peritonitis. 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 He rates his pain a 10 out of 10. He has been feeling pain after eating so has not eaten today or taken any meds, including his pain medications. Negative COVID-19 on March 12, 2020. Denies fever, vomiting, diarrhea, dizziness, syncope, headache, vision changes, focal weakness, numbness or tingling and no recent travel or sick contacts. He relates to me he was on hospice until 3 months ago. Weight up 20kg from dry weight of 110kg. Cardiac workup negative in ED. cxr concerning for Left basilar atelectasis. CT abdomen with pelvic fluid and PD catheter. Labs: WBC 11.3, Hb 11.6, Platelets 267, Na 134, K 4.9, BUN 53, Cr 6.7, Glucose 2 56, BNP 22067, AST 20, ALT 24, Alk phos 182, Lipase 1535, albumin 3. normal trop. normal INR 0.9, lactate 1. Admitted for further treatment Lipase up to 1608. multiple doses of fentanyl and oxycodone as well as ativan No SOB. Still c/o back pain 4/10 and abdominal pain 2/10. Vitals Vitals Vital Signs Date Time Temp Pulse Resp B/P (MAP) Pulse Ox O2 Delivery O2 Flow Rate FiO2 05/01/20 10:56 93 Nasal Cannula 2.0 05/01/20 08:00 164/68 (100) 05/01/20 07:00 97.8 69 16 97.8 Physical Exam General: Alert, Oriented X3, Cooperative, No acute distress Heart: Regular rate, Normal S1 Lungs: Clear Abdomen: Normal bowel sounds, Soft, No hepatosplenomegaly, No masses, Other (bilateral upper quadrant and epigastric tenderness. PD catheter clean dry, intact.) Extremities: No clubbing, No cyanosis, No edema, Normal pulses, No tenderness/swelling Skin: No rashes, No breakdown, No significant lesion Labs LABS Laboratory Tests Test 04/30/20 11:22 04/30/20 16:24 04/30/20 23:19 05/01/20 06:30 Glucose (Fingerstick) 186 mg/dL (70-99) 160 mg/dL (70-99) 170 mg/dL (70-99) Sodium Level 133 mmol/L (136-145) Potassium Level 4.2 mmol/L (3.5-5.1) Chloride Level 95 mmol/L (98-107) Carbon Dioxide Level 30 mmol/L (21-32) Anion Gap 8 (6-14) Blood Urea Nitrogen 59 mg/dL (8-26) Creatinine 8.2 mg/dL (0.7-1.3) Estimated GFR (Cockcroft-Gault) 6.9 Glucose Level 121 mg/dL (70-99) Calcium Level 8.1 mg/dL (8.5-10.1) Test 05/01/20 07:21 Glucose (Fingerstick) 106 mg/dL (70-99) Assessment and Plan Assessmemt and Plan Problems Medical Problems: (1) Chest pain Status: Acute Comment Review of Relevant I have reviewed the following items nelda (where applicable) has been applied. Labs Laboratory Tests Test 04/29/20 17:04 04/29/20 21:10 04/30/20 07:40 04/30/20 11:22 Glucose (Fingerstick) 114 mg/dL (70-99) 177 mg/dL (70-99) 59 mg/dL (70-99) 186 mg/dL (70-99) Test 04/30/20 16:24 04/30/20 23:19 05/01/20 06:30 05/01/20 07:21 Glucose (Fingerstick) 160 mg/dL (70-99) 170 mg/dL (70-99) 106 mg/dL (70-99) Sodium Level 133 mmol/L (136-145) Potassium Level 4.2 mmol/L (3.5-5.1) Chloride Level 95 mmol/L (98-107) Carbon Dioxide Level 30 mmol/L (21-32) Anion Gap 8 (6-14) Blood Urea Nitrogen 59 mg/dL (8-26) Creatinine 8.2 mg/dL (0.7-1.3) Estimated GFR (Cockcroft-Gault) 6.9 Glucose Level 121 mg/dL (70-99) Calcium Level 8.1 mg/dL (8.5-10.1) Laboratory Tests Test 04/30/20 11:22 04/30/20 16:24 04/30/20 23:19 05/01/20 06:30 Glucose (Fingerstick) 186 mg/dL (70-99) 160 mg/dL (70-99) 170 mg/dL (70-99) Sodium Level 133 mmol/L (136-145) Potassium Level 4.2 mmol/L (3.5-5.1) Chloride Level 95 mmol/L (98-107) Carbon Dioxide Level 30 mmol/L (21-32) Anion Gap 8 (6-14) Blood Urea Nitrogen 59 mg/dL (8-26) Creatinine 8.2 mg/dL (0.7-1.3) Estimated GFR (Cockcroft-Gault) 6.9 Glucose Level 121 mg/dL (70-99) Calcium Level 8.1 mg/dL (8.5-10.1) Test 05/01/20 07:21 Glucose (Fingerstick) 106 mg/dL (70-99) Microbiology 04/27/20 Blood Culture - Preliminary, Resulted NO GROWTH AFTER 3 DAYS Medications Current Medications Aspirin (Katie Aspirin) 325 mg 1X ONCE PO Last administered on 04/27/20at 16 :48; Start 04/27/20 at 16:15; Stop 04/27/20 at 16:16; Status DC Fentanyl Citrate (Fentanyl 2ml Vial) 50 mcg 1X ONCE IVP Last administered on 04/27/20at 16:55; Start 04/27/20 at 17:00; Stop 04/27/20 at 17:01; Status DC Ondansetron HCl (Zofran) 4 mg PRN Q8HRS PRN IV NAUSEA/VOMITING Last administered on 04/27/20at 19:13; Start 04/27/20 at 18:00; Stop 04/27/20 at 20:20; Status DC Fentanyl Citrate (Fentanyl 2ml Vial) 50 mcg PRN Q1HR PRN IV PAIN Last administered on 04/27/20at 19:36; Start 04/27/20 at 18:00; Stop 04/27/20 at 20:20; Status DC Ondansetron HCl (Zofran) 4 mg PRN Q4HRS PRN IV NAUSEA/VOMITING; Start 04/27/20 at 20:30 Insulin Human Lispro (HumaLOG) 0-7 UNITS TIDACHC SQ ; Start 04/27/20 at 21:15 Dextrose (Dextrose 50%-Water Syringe) 12.5 gm PRN Q15MIN PRN IV SEE COMMENTS Last administered on 04/30/20at 07:50; Start 04/27/20 at 20:30 Amlodipine Besylate (Norvasc) 10 mg DAILY PO Last administered on 04/30/20at 09:01; Start 04/28/20 at 09:00 Aspirin (Aspirin Chewable) 81 mg DAILY PO Last administered on 04/30/20 08:57; Start 04/28/20 at 09:00 Buspirone HCl (Buspar) 5 mg BID PO Last administered on 04/30/20 21:30; Start 04/27/20 at 21:15 Divalproex Sodium (Depakote) 1,000 mg BID PO Last administered on 04/30/20 21:30; Start 04/27/20 at 21:00 Docusate Sodium (Colace) 100 mg DAILY PO Last administered on 04/30/20 08:59; Start 04/28/20 at 09:00 Vitamin B Complex/ Vitamin C (Gissel-Irvin) 1 tab DAILY PO Last administered on 04/30/20 09:00; Start 04/28/20 at 09:00 Furosemide (Lasix) 120 mg BID92 PO Last administered on 04/30/20 17:22; Start 04/28/20 at 09:00 Hydralazine HCl (Apresoline) 25 mg BID PO Last administered on 04/30/20 21:30; Start 04/27/20 at 21:00 Lisinopril (Prinivil) 20 mg DAILY PO Last administered on 04/30/20 08:58; Start 04/28/20 at 09:00 Lorazepam (Ativan) 0.5 mg PRN Q8HRS PRN PO anxiety Last administered on 04/27/20 21:07; Start 04/27/20 at 20:30; Stop 04/28/20 at 09:11; Status DC Lubiprostone (Amitiza) 24 mcg DAILY PO Last administered on 04/30/20 08:54; Start 04/28/20 at 09:00 Nitroglycerin (Nitrostat) 0.4 mg PRN Q5MIN PRN SL CHEST PAIN; Start 04/27/20 at 20:30 Ondansetron HCl (Zofran Odt) 4 mg PRN Q4HRS PRN PO NAUSEA; Start 04/27/20 at 20:30; Status Cancel Oxycodone/ Acetaminophen (Percocet 10/325) 1 tab PRN BID PRN PO SEVERE PAIN 7- 10 Last administered on 05/01/20 10:56; Start 04/27/20 at 20:30 Quetiapine Fumarate (SEROquel) 100 mg QHS PO Last administered on 04/30/20 21:29; Start 04/27/20 at 21:00 Sevelamer Carbonate (Renvela) 800 mg TIDWMEALS PO Last administered on 04/30/20 17:24; Start 04/28/20 at 08:00 Carvedilol (Coreg) 12.5 mg BIDWMEALS PO Last administered on 04/30/20 17:21; Start 04/28/20 at 08:00 Citalopram Hydrobromide (CeleXA) 40 mg HS PO Last administered on 04/30/20 21:29; Start 04/27/20 at 21:15 Diphenhydramine HCl (Benadryl) 25 mg HS PO Last administered on 04/30/20 21:32; Start 04/27/20 at 21:00 Non-Formulary Medication (Insulin Degludec (Tresiba)) 42 unit QHS SQ ; Start 04/27/20 at 21:00; Status UNV Ondansetron HCl (Zofran Odt) 4 mg PRN Q8HRS PRN PO NAUSEA/VOMITING; Start 04/27/20 at 21:00 Pantoprazole Sodium (Protonix) 40 mg DAILYAC PO ; Start 04/28/20 at 07:30; Stop 04/28/20 at 11:08; Status DC Ranolazine (Ranexa) 500 mg BID PO Last administered on 04/30/20 21:33; Start 04/27/20 at 21:15 Trazodone HCl (Desyrel) 150 mg HS PO Last administered on 04/30/20 21:31; Start 04/27/20 at 21:00 Diclofenac Sodium (Voltaren) 1 christo BID TP Last administered on 04/30/20 21:29; Start 04/28/20 at 09:00 Psyllium Hydrophilic Mucilloid (Metamucil Fiber Packet) 1 pkt QHS PO Last administered on 04/30/20 21:31; Start 04/27/20 at 21:15 Polyethylene Glycol (miraLAX PACKET) 17 gm QHS PO Last administered on 04/30/20 21:31; Start 04/27/20 at 21:00 Bisacodyl (Dulcolax Supp) 10 mg PRN DAILY PRN AL CONSTIPATION; Start 04/27/20 at 21:00; Status UNV Lactulose (Lactulose) 20 gm PRN DAILY PRN PO CONSTIPATION; Start 04/27/20 at 21:00 Heparin Sodium (Porcine) (Heparin Sodium) 5,000 unit Q8HRS SQ Last administered on 05/01/20at 05:30; Start 04/27/20 at 22:00 Hydralazine HCl (Apresoline Inj) 10 mg PRN Q4HRS PRN IVP ELEVATED BP, SEE COMMENTS Last administered on 04/30/20at 01:22; Start 04/27/20 at 21:00 Insulin Glargine (Lantus Syringe) 42 unit QHS SQ Last administered on 04/30/20at 23:27; Start 04/27/20 at 21:30 Fentanyl Citrate (Fentanyl 2ml Vial) 50 mcg PRN Q1HR PRN IVP PAIN Last administered on 04/27/20at 22:48; Start 04/27/20 at 22:30; Stop 04/28/20 at 09:11; Status DC Fentanyl Citrate (Fentanyl 2ml Vial) 50 mcg PRN Q2HRS PRN IVP MODERATE TO SEVERE PAIN Last administered on 05/01/20at 08:17; Start 04/28/20 at 09:15; Stop 05/01/20 at 10:09; Status DC Lorazepam (Ativan) 0.5 mg PRN DAILY PRN PO anxiety; Start 04/29/20 at 08:30 Pantoprazole Sodium (PROTONIX VIAL for IV PUSH) 40 mg DAILYAC IVP Last administered on 04/28/20at 12:25; Start 04/28/20 at 11:30; Stop 04/28/20 at 16:12; Status DC Pantoprazole Sodium (PROTONIX VIAL for IV PUSH) 40 mg BIDAC IVP ; Start 04/29/20 at 07:30; Stop 04/29/20 at 11:50; Status DC Iodixanol (Visipaque 320) 100 ml STK-MED ONCE .ROUTE ; Start 04/29/20 at 07:42; Stop 04/29/20 at 07:42; Status DC Lidocaine HCl (Lidocaine 1% 20ml Vial) 20 ml STK-MED ONCE .ROUTE ; Start 04/29/20 at 07:42; Stop 04/29/20 at 07:42; Status DC Heparin Sodium/ Sodium Chloride 1,500 ml @ As Directed STK-MED ONCE .ROUTE ; Start 04/29/20 at 07:42; Stop 04/29/20 at 07:43; Status DC Sodium Chloride 1,000 ml @ 1,000 mls/hr Q1H PRN IV hypotension; Start 04/29/20 at 08:16; Stop 04/29/20 at 14:15; Status DC Diphenhydramine HCl (Benadryl) 25 mg 1X PRN PRN IV ITCHING; Start 04/29/20 at 08:30; Stop 04/30/20 at 08:29; Status DC Diphenhydramine HCl (Benadryl) 25 mg 1X PRN PRN IV ITCHING; Start 04/29/20 at 08:30; Stop 04/30/20 at 08:29; Status DC Sodium Chloride 1,000 ml @ 400 mls/hr Q2H30M PRN IV PATENCY; Start 04/29/20 at 08:16; Stop 04/29/20 at 20:15; Status DC Info (PHARMACY MONITORING -- do not chart) 1 each PRN DAILY PRN MC SEE COMMENTS; Start 04/29/20 at 08:30; Status UNV Info (PHARMACY MONITORING -- do not chart) 1 each PRN DAILY PRN MC SEE COMMENTS; Start 04/29/20 at 08:30 Fentanyl Citrate (Fentanyl 2ml Vial) 100 mcg STK-MED ONCE .ROUTE ; Start 04/29/20 at 08:43; Stop 04/29/20 at 08:43; Status DC Midazolam HCl (Versed) 5 mg STK-MED ONCE .ROUTE ; Start 04/29/20 at 08:43; Stop 04/29/20 at 08:43; Status DC Heparin Sodium/ Sodium Chloride (HEPARIN for ARTERIAL LINE FLUSH) 1,000 unit 1X ONCE IART Last administered on 04/29/20at 09:44; Start 04/29/20 at 09:15; Stop 04/29/20 at 09:16; Status DC Heparin Sodium/ Sodium Chloride (HEPARIN for ARTERIAL LINE FLUSH) 1,000 unit 1X ONCE IART Last administered on 04/29/20at 09:44; Start 04/29/20 at 09:15; Stop 04/29/20 at 09:16; Status DC Midazolam HCl (Versed) 5 mg 1X ONCE IV Last administered on 04/29/20at 09:45; Start 04/29/20 at 09:15; Stop 04/29/20 at 09:16; Status DC Fentanyl Citrate (Fentanyl 2ml Vial) 100 mcg 1X ONCE IV Last administered on 04/29/20at 09:46; Start 04/29/20 at 09:15; Stop 04/29/20 at 09:16; Status DC Iodixanol (Visipaque 320) 100 ml 1X ONCE IART Last administered on 04/29/20at 09:45; Start 04/29/20 at 09:15; Stop 04/29/20 at 09:16; Status DC Lidocaine HCl (Lidocaine 1% 20ml Vial) 20 ml 1X ONCE INJ Last administered on 04/29/20at 09:45; Start 04/29/20 at 09:15; Stop 04/29/20 at 09:16; Status DC Iodixanol (Visipaque 320) 100 ml STK-MED ONCE .ROUTE ; Start 04/29/20 at 09:32; Stop 04/29/20 at 09:32; Status DC Pantoprazole Sodium (Protonix) 40 mg BIDAC PO Last administered on 05/01/20at 11:06; Start 04/29/20 at 16:30 Sodium Chloride 1,000 ml @ 1,000 mls/hr Q1H PRN IV hypotension; Start 05/01/20 at 07:34; Stop 05/01/20 at 13:33 Albumin Human 200 ml @ 200 mls/hr 1X PRN PRN IV Hypotension; Start 05/01/20 at 07:45; Stop 05/01/20 at 13:44 Sodium Chloride 1,000 ml @ 400 mls/hr Q2H30M PRN IV PATENCY; Start 05/01/20 at 07:34; Stop 05/01/20 at 19:33 Info (PHARMACY MONITORING -- do not chart) 1 each PRN DAILY PRN MC SEE COMMENTS; Start 05/01/20 at 07:45 Info (PHARMACY MONITORING -- do not chart) 1 each PRN DAILY PRN MC SEE COMMENTS; Start 05/01/20 at 07:45; Status UNV Atorvastatin Calcium (Lipitor) 10 mg QHS PO ; Start 05/01/20 at 21:00 Active Scripts Active Ondansetron Odt (Ondansetron) 4 Mg Tab.rapdis 1 Tab PO PRN Q6-8HRS PRN Percocet 10-325 Mg Tablet (Oxycodone/Acetaminophen) 1 Each Tablet 1 Tab PO PRN BID PRN MDD 2 Tablet(s) 5 Days [Diclofenac Sodium] 100 GM Gel..gram. 1 Christo TP BID 30 Days Reported Renal-Irvin Tablet (Folic Acid/Vit Bcomp,C) 0.8 Mg Tablet 0.8 Mg PO DAILY Novolog (Insulin Aspart) 100 Unit/1 Ml Vial 0 SQ PRN TID PRN Ibuprofen 600 Mg Tablet 600 Mg PO PRN Q12HR PRN Diphenhydramine Hcl 25 Mg Tablet 25 Mg PO QHS Furosemide 80 Mg Tablet 120 Mg PO BID Tresiba (Insulin Degludec) 100 Unit/1 Ml Vial 42 Unit SQ DAILY Ativan (Lorazepam) 1 Mg Tablet 0.5 Mg PO Q4HRS Percocet 10-325 Mg Tablet (Oxycodone/Acetaminophen) 1 Each Tablet 1 Tab PO BID Buspirone Hcl 5 Mg Tablet 5 Mg PO BID Lisinopril 20 Mg Tablet 20 Mg PO DAILY Zofran (Ondansetron Hcl) 4 Mg Tablet 1 Tab PO PRN Q4HRS PRN NITROGLYCERIN SubLingual (Nitroglycerin) 0.4 Mg Tab.subl 0.4 Mg SL PRN Q5MIN PRN Hydralazine Hcl 25 Mg Tablet 1 Tab PO BID Gabapentin 400 Mg Capsule 400 Mg PO BID Citalopram Hbr (Citalopram Hydrobromide) 40 Mg Tablet 40 Mg PO HS Cyclobenzaprine Hcl 10 Mg Tablet 1 Tab PO TID PRN PRN Ranexa (Ranolazine) 1,000 Mg Tab.er.12h 0.5 Tab PO BID Seroquel (Quetiapine Fumarate) 100 Mg Tablet 1 Tab PO QHS Protonix (Pantoprazole Sodium) 20 Mg Tablet.dr 40 Mg PO DAILY Docusate Sodium 100 Mg Capsule 1 Cap PO DAILY Divalproex Sodium 500 Mg Tablet.dr 2 Tab PO BID Aspirin 81 Mg Tab.chew 1 Tab PO DAILY Amitiza (Lubiprostone) 24 Mcg Capsule 1 Cap PO DAILY Norvasc (Amlodipine Besylate) 10 Mg Tablet 10 Mg PO DAILY Coreg (Carvedilol) 25 Mg Tablet 12.5 Mg PO BIDWMEALS Metolazone 5 Mg Tablet 5 Mg PO DAILY Renvela (Sevelamer Carbonate) 800 Mg Tablet 800 Mg PO TIDWMEALS Trazodone Hcl 300 Mg Tablet 150 Mg PO HS Vitals/I & O Vital Sign - Last 24 Hours 04/30/20 04/30/20 04/30/20 04/30/20 14:11 17:21 18:26 20:00 Temp 98.5 98.7 98.5 98.7 Pulse 74 74 75 Resp 18 18 B/P (MAP) 129/66 (87) 129/66 135/60 (85) Pulse Ox 97 97 O2 Delivery Room Air Room Air Nasal Cannula O2 Flow Rate 2.0 04/30/20 04/30/20 04/30/20 04/30/20 21:30 21:32 21:33 22:32 Pulse 75 75 Resp 22 B/P (MAP) 135/60 135/60 Pulse Ox 97 97 O2 Delivery Room Air Room Air O2 Flow Rate 2.0 2.0 04/30/20 05/01/20 05/01/20 05/01/20 23:00 00:13 00:43 03:15 Temp 98.9 98.3 98.9 98.3 Pulse 76 70 Resp 18 18 16 B/P (MAP) 144/67 (92) 139/60 (86) Pulse Ox 97 97 97 91 O2 Delivery Nasal Cannula Room Air Room Air Room Air O2 Flow Rate 2.0 2.0 2.0 05/01/20 05/01/20 05/01/20 05/01/20 07:00 08:00 08:00 08:17 Temp 97.8 97.8 Pulse 69 Resp 16 B/P (MAP) 142/62 (88) 164/68 (100) Pulse Ox 93 93 O2 Delivery Room Air Nasal Cannula Nasal Cannula O2 Flow Rate 2.0 2.0 05/01/20 10:56 Pulse Ox 93 O2 Delivery Nasal Cannula O2 Flow Rate 2.0 Intake and Output 04/30/20 04/30/20 05/01/20 15:00 23:00 07:00 Intake Total 360 ml 700 ml Balance 360 ml 700 ml Nutrition Consultation Dietary Evaluation: Recommendations by RD: Dietary education by RD, Increase Calorie Intake, Protein supplementation Comments: REC GI soft/renal/ADA diet w/dbl meat portions Expected Outcomes/Goals: PO intake to meet >75% est needs Interpretation of weight loss: >7.5% in 3 months Malnutrition Findings: Food and Nutrition Intake (Sev: <50% est energy req 5days Weight Status: Overweight Justicifation of Admission Dx: Justifications for Admission: Justification of Admission Dx: Yes SHIRA LANE MD May 01, 2020 11:15
[2020-05-01] MEDS ORDERED: LIDO:MAALOX 1:1 20 ML SINGLE DOSE. PO PRN (12:30)
[2020-05-01] MEDS: FOLIC/VIT B COMP W-C (RENAL) TABLET. PO SCH (12:35)
[2020-05-01] MEDS: RANOLAZINE 500 MG TAB.ER.12H PO SCH (12:35)
[2020-05-01] MEDS: amLODIPine BESYLATE 10 MG TABLET PO SCH (12:36)
[2020-05-01] MEDS: LISINOPRIL 20 MG TABLET PO SCH (12:36)
[2020-05-01] MEDS: DOCUSATE SODIUM 100 MG CAPSULE. PO SCH (12:36)
[2020-05-01] MEDS: DIVALPROEX DELAYED RELEASE 500 MG TABLET.DR. PO SCH (12:36)
[2020-05-01] MEDS: busPIRone 5 MG TABLET. PO SCH (12:36)
[2020-05-01] MEDS: LUBIPROSTONE 24 MCG CAPSULE PO SCH (12:36)
[2020-05-01] MEDS: hydrALAZINE 25 MG TABLET PO SCH (12:37)
[2020-05-01] MEDS: ASPIRIN CHEWABLE 81 MG TABLET. PO SCH (12:37)
[2020-05-01] MEDS: FUROSEMIDE 80 MG TABLET. PO SCH (12:38)
[2020-05-01] MEDS ORDERED: OXYC1TAB22 PO (12:43)
--- NOTE | 2020-05-01 13:13 | PDOC ---
G I PROGRESS NOTE Subjective Molino pretty good on awakening. Now with superior epigastric discomfort and lower back pain. Says everything worse during dialysis. No N, V. PO pretty well yesterday considering out of it for large portion. Physical Exam Lungs clear. RRR Abdomen soft. Xyphoid tenderness. Review of Relevant I have reviewed the following items nelda (where applicable) has been applied. Labs Laboratory Tests Test 04/29/20 17:04 04/29/20 21:10 04/30/20 07:40 04/30/20 11:22 Glucose (Fingerstick) 114 mg/dL (70-99) 177 mg/dL (70-99) 59 mg/dL (70-99) 186 mg/dL (70-99) Test 04/30/20 16:24 04/30/20 23:19 05/01/20 06:30 05/01/20 07:21 Glucose (Fingerstick) 160 mg/dL (70-99) 170 mg/dL (70-99) 106 mg/dL (70-99) Sodium Level 133 mmol/L (136-145) Potassium Level 4.2 mmol/L (3.5-5.1) Chloride Level 95 mmol/L (98-107) Carbon Dioxide Level 30 mmol/L (21-32) Anion Gap 8 (6-14) Blood Urea Nitrogen 59 mg/dL (8-26) Creatinine 8.2 mg/dL (0.7-1.3) Estimated GFR (Cockcroft-Gault) 6.9 Glucose Level 121 mg/dL (70-99) Calcium Level 8.1 mg/dL (8.5-10.1) Test 05/01/20 12:17 Glucose (Fingerstick) 110 mg/dL (70-99) Laboratory Tests Test 04/30/20 16:24 04/30/20 23:19 05/01/20 06:30 05/01/20 07:21 Glucose (Fingerstick) 160 mg/dL (70-99) 170 mg/dL (70-99) 106 mg/dL (70-99) Sodium Level 133 mmol/L (136-145) Potassium Level 4.2 mmol/L (3.5-5.1) Chloride Level 95 mmol/L (98-107) Carbon Dioxide Level 30 mmol/L (21-32) Anion Gap 8 (6-14) Blood Urea Nitrogen 59 mg/dL (8-26) Creatinine 8.2 mg/dL (0.7-1.3) Estimated GFR (Cockcroft-Gault) 6.9 Glucose Level 121 mg/dL (70-99) Calcium Level 8.1 mg/dL (8.5-10.1) Test 05/01/20 12:17 Glucose (Fingerstick) 110 mg/dL (70-99) Microbiology 04/27/20 Blood Culture - Preliminary, Resulted NO GROWTH AFTER 3 DAYS Vitals/I & O Vital Sign - Last 24 Hours 04/30/20 04/30/20 04/30/20 04/30/20 14:11 17:21 18:26 20:00 Temp 98.5 98.7 98.5 98.7 Pulse 74 74 75 Resp 18 18 B/P (MAP) 129/66 (87) 129/66 135/60 (85) Pulse Ox 97 97 O2 Delivery Room Air Room Air Nasal Cannula O2 Flow Rate 2.0 04/30/20 04/30/20 04/30/20 04/30/20 21:30 21:32 21:33 22:32 Pulse 75 75 Resp 22 B/P (MAP) 135/60 135/60 Pulse Ox 97 97 O2 Delivery Room Air Room Air O2 Flow Rate 2.0 2.0 04/30/20 05/01/20 05/01/20 05/01/20 23:00 00:13 00:43 03:15 Temp 98.9 98.3 98.9 98.3 Pulse 76 70 Resp 18 18 16 B/P (MAP) 144/67 (92) 139/60 (86) Pulse Ox 97 97 97 91 O2 Delivery Nasal Cannula Room Air Room Air Room Air O2 Flow Rate 2.0 2.0 2.0 05/01/20 05/01/20 05/01/20 05/01/20 07:00 08:00 08:00 08:17 Temp 97.8 97.8 Pulse 69 Resp 16 B/P (MAP) 142/62 (88) 164/68 (100) Pulse Ox 93 93 O2 Delivery Room Air Nasal Cannula Nasal Cannula O2 Flow Rate 2.0 2.0 05/01/20 05/01/20 05/01/20 05/01/20 10:56 11:56 12:35 12:36 Pulse 69 69 B/P (MAP) 164/68 164/68 Pulse Ox 93 93 O2 Delivery Nasal Cannula Nasal Cannula O2 Flow Rate 2.0 2.0 05/01/20 05/01/20 12:36 12:37 Pulse 69 69 B/P (MAP) 164/68 164/68 Intake and Output 04/30/20 04/30/20 05/01/20 15:00 23:00 07:00 Intake Total 360 ml 700 ml Balance 360 ml 700 ml Problem List Problems Medical Problems: (1) Chest pain Status: Acute Assessment GERD, stable with some lingering issues. Doubt pancreatitis. H/o polyps;last exam oncomplete. Plan of Care: Continue current Tx, Mgmt Plan of Care Note Consider outpatient colonoscopy. Justicifation of Admission Dx: Justifications for Admission: Justification of Admission Dx: Yes MOLINA TIDWELL MD May 01, 2020 13:13
[2020-05-01 14:50] VITALS: BP 126/62
--- NOTE | 2020-05-01 15:17 | NUR ---
Discharge Note: JULIAN GARCÍA [facility] Discharge instructions and discharge home medications reviewed with Patient and a copy given. All questions have been answered and understanding verbalized. The following instructions and handouts were given: Chronic pain meds, malnutrition Discontinued lines and drains: IV catheter removed intact. Tele monitor removed Patient discharged to Home with self care via wheelchair.
[2020-05-01] MEDS ORDERED: ATORVASTATIN CALCIUM 10 MG TABLET. PO SCH (21:00)
[2020-05-21] MEDS ORDERED: GABA-585 PO (16:38)
[2020-05-21] MEDS ORDERED: AMOX1TAB10 PO (16:38)
[2020-06-23] MEDS ORDERED: INSU100V37 SQ (12:30)
== END 2020-05-01 15:10 | disposition home or self-care (01) | DRG 438 ==
LOC: ER 15:52 → 2 SOUTH 17:54
PROVIDERS: ADMIT Internal Medicine; ATTEND Internal Medicine
PROC: 4A023N7 Measurement of Cardiac Sampling and Pressure, Left Heart, Percutaneous Approach (ICD-10-PCS; principal; 2020-04-29)
PROC: B2151ZZ Fluoroscopy of Left Heart using Low Osmolar Contrast (ICD-10-PCS; 2020-04-29)
PROC: B2111ZZ Fluoroscopy of Multiple Coronary Arteries using Low Osmolar Contrast (ICD-10-PCS; 2020-04-29)
PROC: 5A1D70Z Performance of Urinary Filtration, Intermittent, Less than 6 Hours Per Day (ICD-10-PCS; 2020-04-29)
PROC: 5A1D70Z Performance of Urinary Filtration, Intermittent, Less than 6 Hours Per Day (ICD-10-PCS; 2020-05-01)
DX: K85.90 Acute pancreatitis without necrosis or infection, unspecified (principal); I50.33 Acute on chronic diastolic (congestive) heart failure; N18.6 End stage renal disease; G92 Toxic encephalopathy; I13.2 Hypertensive heart and chronic kidney disease with heart failure and with stage 5 chronic kidney disease, or end stage renal disease; M94.0 Chondrocostal junction syndrome [Tietze]; K86.1 Other chronic pancreatitis; D64.9 Anemia, unspecified; E11.22 Type 2 diabetes mellitus with diabetic chronic kidney disease; E11.51 Type 2 diabetes mellitus with diabetic peripheral angiopathy without gangrene; E21.3 Hyperparathyroidism, unspecified; E78.00 Pure hypercholesterolemia, unspecified; E78.5 Hyperlipidemia, unspecified; F17.210 Nicotine dependence, cigarettes, uncomplicated; F32.9 Major depressive disorder, single episode, unspecified; F43.10 Post-traumatic stress disorder, unspecified; G40.909 Epilepsy, unspecified, not intractable, without status epilepticus; G47.33 Obstructive sleep apnea (adult) (pediatric); I25.10 Atherosclerotic heart disease of native coronary artery without angina pectoris; I25.5 Ischemic cardiomyopathy; J40 Bronchitis, not specified as acute or chronic; K21.9 Gastro-esophageal reflux disease without esophagitis; K59.00 Constipation, unspecified; Z79.4 Long term (current) use of insulin; Z86.010 Personal history of colon polyps; Z86.711 Personal history of pulmonary embolism; Z86.73 Personal history of transient ischemic attack (TIA), and cerebral infarction without residual deficits; Z95.1 Presence of aortocoronary bypass graft; Z99.2 Dependence on renal dialysis
CPT/HCPCS: 93459; 96374; 96375; 96376; 99285; G0269; 36415; 36600; 71045; 74176; 80048; 80053; 80061; 80307; 81001; 82805; 82962; 83605; 83690; 83880; 84100; 84484; 85025; 85610; 86140; 87040; 93005; 99152; 99153; 99406; C1760; C1769; C1892; C9113; J0360; J1644; J1815; J2250; J2405; J3010; J3490; Q9967; C1771; G0378; Q0163

== ENCOUNTER 2020-05-10 23:44 | Inpatient (IN) | payer MEDICARE, OTHER ==
[~2020-05-10] VITALS: Ht 190.5 cm; Wt 114.0 kg
[2020-05-11 00:07] LABS: BASO # 0.1 x10^3/uL (0.0-0.2); BASO % 1 % (0-3); EOS # 0.1 x10^3/uL (0.0-0.7); EOS % 1 % (0-3); HEMATOCRIT 33.7 % (39.0-53.0); HEMOGLOBIN 11.4 g/dL (13.0-17.5); LYMPH # 2.2 x10^3/uL (1.0-4.8); LYMPH % 22 % (24-48); MEAN CORPUSCULAR HEMOGLOBIN 33 pg (25-35); MEAN CORPUSCULAR HGB CONC 34 g/dL (31-37); MEAN CORPUSCULAR VOLUME 96 fL (79-100); MONO # 0.8 x10^3/uL (0.0-1.1); MONO % 8 % (0-9); NEUT # 6.9 x10^3/uL (1.8-7.7); NEUT % 68 % (31-73); PLATELET COUNT 264 x10^3/uL (140-400); RED CELL DISTRIBUTION WIDTH 12.9 % (11.5-14.5); WHITE BLOOD COUNT 10.2 x10^3/uL (4.0-11.0)
[2020-05-11] MEDS ORDERED: IV NORMAL SALINE 1000ML BAG 1,000 ML IV ONE ×2 (00:15→00:30)
--- NOTE | 2020-05-11 00:20 | PHYS DOC ---
Past Medical History Past Medical History: Anxiety, CAD, CHF, Diabetes-Type II, High Cholesterol, Heart Disease, Hypertension, [place], Renal Disease, Renal Failure, Seizure Additional Past Medical Histor: dialysis, pt denies lung ca; chronic back pain Past Surgical History: Cholecystectomy, Coronary Bypass Surgery Additional Past Surgical Histo: patient also had peritoneal diaylysis cath placed 04/02/20 Smoking Status: Current Every Day Smoker Alcohol Use: Occasionally Drug Use: None General Adult EDM: Chief Complaint: HYPERGLYCEMIA HPI: HPI: Patient is a 54 year old male with past medical history of esrd diabetes insulin-dependent presents for the evaluation of hyperglycemia. Patient states his blood sugars have been in the 600s all morning. Patient states he has dosed himself with Humalog 10 units throughout the day as well as this evening used his Lantus. Patient's blood sugar continues to be in the 600. Patient has no complaints he denies any headache chest pain shortness of breath nausea vomiting or diarrhea. Patient states similar episode in the past where he was admitted to the hospital and placed on insulin drip. He states at that time no cause was identified. Review of Systems: Review of Systems: Constitutional: Denies fever or chills. [] Eyes: Denies change in visual acuity. [] HENT: Denies nasal congestion or sore throat. [] Respiratory: Denies cough or shortness of breath. [] Cardiovascular: Denies chest pain or edema. [] GI: Denies abdominal pain, nausea, vomiting, bloody stools or diarrhea. [] : Denies dysuria. [] Musculoskeletal: Denies back pain or joint pain. [] Integument: Denies rash. [] Neurologic: Denies headache, focal weakness or sensory changes. [] Endocrine: Denies polyuria or polydipsia. [] Lymphatic: Denies swollen glands. [] Psychiatric: Denies depression or anxiety. [] Heart Score: Risk Factors: Risk Factors: DM, Current or recent (<one month) smoker, HTN, HLP, family history of CAD, obesity. Risk Scores: Score 0 - 3: 2.5% MACE over next 6 weeks - Discharge Home Score 4 - 6: 20.3% MACE over next 6 weeks - Admit for Clinical Observation Score 7 - 10: 72.7% MACE over next 6 weeks - Early Invasive Strategies Current Medications: Current Medications Medications (Trade) Dose Ordered Sig/Brittani Start Time Stop Time Status Last Admin Dose Admin Sodium Chloride 1,000 ml @ 1,000 mls/hr 1X ONCE 05/11/20 00:15 05/11/20 01:14 Allergies: Allergies: Allergies Coded Allergies Type Severity Reaction Last Updated Verified hydromorphone Allergy Severe Anaphylaxis 04/04/20 Yes Physical Exam: PE: Constitutional: Well developed, well nourished, no acute distress, non-toxic appearance. [] HENT: Normocephalic, atraumatic, bilateral external ears normal, oropharynx moist, no oral exudates, nose normal. [] Eyes: PERRLA, EOMI, conjunctiva normal, no discharge. [] Neck: Normal range of motion, no tenderness, supple, no stridor. [] Cardiovascular:Heart rate regular rhythm, no murmur [] Lungs & Thorax: Bilateral breath sounds clear to auscultation [] Abdomen: Bowel sounds normal, soft, no tenderness, no masses, no pulsatile masses. [] Skin: Warm, dry, no erythema, no rash. [] Back: No tenderness, no CVA tenderness. [] Extremities: No tenderness, no cyanosis, no clubbing, ROM intact, no edema. [] Neurologic: Alert and oriented X 3, normal motor function, normal sensory function, no focal deficits noted. [] Psychologic: Affect normal, judgement normal, mood normal. [] Current Patient Data: Labs: Laboratory Tests Test 05/10/20 23:50 05/10/20 23:55 Glucose (Fingerstick) 600 mg/dL (70-99) *H White Blood Count 10.2 x10^3/uL (4.0-11.0) Red Blood Count 3.50 x10^6/uL (4.30-5.70) L Hemoglobin 11.4 g/dL (13.0-17.5) L Hematocrit 33.7 % (39.0-53.0) L Mean Corpuscular Volume 96 fL (79-100) Mean Corpuscular Hemoglobin 33 pg (25-35) Mean Corpuscular Hemoglobin Concent 34 g/dL (31-37) Red Cell Distribution Width 12.9 % (11.5-14.5) Platelet Count 264 x10^3/uL (140-400) Neutrophils (%) (Auto) 68 % (31-73) Lymphocytes (%) (Auto) 22 % (24-48) L Monocytes (%) (Auto) 8 % (0-9) Eosinophils (%) (Auto) 1 % (0-3) Basophils (%) (Auto) 1 % (0-3) Neutrophils # (Auto) 6.9 x10^3/uL (1.8-7.7) Lymphocytes # (Auto) 2.2 x10^3/uL (1.0-4.8) Monocytes # (Auto) 0.8 x10^3/uL (0.0-1.1) Eosinophils # (Auto) 0.1 x10^3/uL (0.0-0.7) Basophils # (Auto) 0.1 x10^3/uL (0.0-0.2) Laboratory Tests 05/10/20 23:55 EKG: EKG: [] Radiology/Procedures: Radiology/Procedures: [] Course & Med Decision Making: Course & Med Decision Making Pertinent Labs and Imaging studies reviewed. (See chart for details) [] Patient was evaluated for chief complaint. Work-up consisted of laboratory analysis. Results reviewed and discussed with patient. Patient initial blood sugar greater than 600.. Treatment included IV fluids and insulin drip. Patient's initial blood pressure greater than 200. Patient was treated with labetalol 20 mg IV push. Patient's blood pressure improved to 180 systolic. Patient was admitted to the hospital on an insulin drip. Dragon Disclaimer: Neelima Disclaimer: This electronic medical record was generated, in whole or in part, using a voice recognition dictation system. Departure Departure Impression: Primary Impression: Hyperglycemia Additional Impression: Hypertension Disposition: ADMITTED INPATIENT Admitting Physician: [facility] Referrals: NO PCP (PCP) Justicifation of Admission Dx: Justifications for Admission: Justification of Admission Dx: Yes MARINE WIN I DO May 11, 2020 00:20
[2020-05-11] MEDS ORDERED: INSULIN,REGULAR 100 UNIT DRIP 100 ML IV ONE (00:30)
[2020-05-11 00:32] LABS: ALBUMIN/GLOBULIN RATIO 0.8 (1.0-1.7); CALCIUM 7.8 mg/dL (8.5-10.1); CREATININE 5.5 mg/dL (0.7-1.3); POTASSIUM 4.9 mmol/L (3.5-5.1); TOTAL BILIRUBIN 0.3 mg/dL (0.2-1.0); TOTAL PROTEIN 6.8 g/dL (6.4-8.2)
[2020-05-11] MEDS ORDERED: LABETALOL 20 MG/4 ML DISP.SYRIN. IVP ONE (01:45)
[2020-05-11 03:15] VITALS: BP 179/77
[2020-05-11] MEDS ORDERED: OXYC1TAB19 PO (05:57)
[2020-05-11] MEDS ORDERED: CYCLOBENZAPRINE 10 MG TABLET. PO PRN (06:00)
[2020-05-11] MEDS ORDERED: oxyCODONE/APAP 7.5/325 1 TAB TABLET PO PRN (06:15)
--- NOTE | 2020-05-11 06:40 | NUR ---
Pt's blood glucose down to 84. Placed insulin on hold and will notify Dr of pt's labs. Call light within reach. Will monitor.
[2020-05-11 07:00] VITALS: BP 155/85
[2020-05-11] MEDS ORDERED: SEVELAMER CARBONATE 800 MG TABLET. PO SCH (08:00)
[2020-05-11] MEDS ORDERED: ONDANSETRON ODT 4 MG TAB.RAPDIS. PO PRN ×2 (08:00→08:15)
[2020-05-11] MEDS ORDERED: DEXTROSE 50% 25 GM / 50ML DISP.SYRIN. IV PRN (08:00)
[2020-05-11] MEDS ORDERED: LORazepam 1 MG TABLET PO PRN (08:00)
[2020-05-11] MEDS ORDERED: NITROGLYCERIN SUBLINGUAL 0.4 MG BOTTLE OF 25. SL PRN (08:00)
--- NOTE | 2020-05-11 08:03 | PDOC1 ---
History and Physical Date of Admission Date of Admission DATE: 05/11/20 TIME: 07:56 Identification/Chief Complaint Chief Complaint Hyperglycemia Source Source: Patient History of Present Illness History of Present Illness Mr Bedolla 54 yo M w/ PMHx smoker, CAD, ischemic CM, ESRD on HD, BP disorder, seizure disorder, DM2, HTN who presents with hyperglycemia. Patient states his blood sugars have been in the 600s all morning. Patient states he has dosed himself with Humalog 10 units throughout the day as well as this evening used his Lantus. Patient's blood sugar continues to be in the 600. Patient has no complaints he denies any headache chest pain shortness of breath nausea vomiting or diarrhea. Patient states similar episode in the past where he was admitted to the hospital and placed on insulin drip. He states at that time no cause was identified. He is s/p PD cath placement 04/04/2020 with no signs of peritonitis. 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 He rates his pain a 10 out of 10. He has been feeling pain after eating so has not eaten today or taken any meds, including his pain medications. Negative COVID-19 on March 12, 2020. Denies fever, vomiting, diarrhea, dizziness, syncope, headache, vision changes, focal weakness, numbness or tingling and no recent travel or sick contacts. He relates to me he was on hospice until 4 months ago. Weight up 4kg from dry weight of 110kg. Labs: WBC 10.2, Hb 11.4 platelets 264, NA 128, K4.7, BUN 47, CR 5.5, glucose 650, calcium 7.8, albumin 3, alkaline phosphatase 157. Admitted for further treatment Past Medical History Cardiovascular: CAD, CHF, HTN, Hyperlipidemia, Other Pulmonary: Bronchitis, Pulmonary embolus, Pneumonia, Other CENTRAL NERVOUS SYSTEM: CVA, Periperal neuropathy, Other GI: GERD, Other Heme/Onc: Cancer Psych: Depression Renal/: Chronic renal failure Endocrine: Diabetes, Hyperparathyroidism Past Surgical History Past Surgical History: Cholecystectomy, CABG, Tonsillectomy, Other Family History Family History: Kidney Disease Social History Smoke: <1 pack per day ALCOHOL: none Drugs: Cocaine Current Problem List Problem List Problems Medical Problems: (1) Hypertension Status: Chronic Current Medications Current Medications Current Medications Sodium Chloride 1,000 ml @ 1,000 mls/hr 1X ONCE IV Last administered on 05/11/20at 00:00; Start 05/11/20 at 00:15; Stop 05/11/20 at 01:14; Status DC Insulin Human Regular 100 ml @ 0 mls/hr 1X ONCE IV Last administered on 05/11/20at 02:20; Start 05/11/20 at 00:30; Stop 05/11/20 at 00:31; Status DC Sodium Chloride 1,000 ml @ 1,000 mls/hr 1X ONCE IV ; Start 05/11/20 at 00:30; Stop 05/11/20 at 01:29; Status DC Labetalol HCl (Normodyne Iv Push) 20 mg 1X ONCE IVP Last administered on 05/11/20at 02:21; Start 05/11/20 at 01:45; Stop 05/11/20 at 01:46; Status DC Cyclobenzaprine HCl (Flexeril) 10 mg PRN TID PRN PO MUSCLE SPASMS Last administered on 05/11/20at 06:37; Start 05/11/20 at 06:00 Gabapentin (Neurontin) 400 mg BID PO ; Start 05/11/20 at 09:00 Oxycodone/ Acetaminophen (Percocet 7.5/ 325) 1 tab PRN Q6HRS PRN PO PAIN Last administered on 05/11/20at 06:38; Start 05/11/20 at 06:15 Active Scripts Active Ondansetron Odt (Ondansetron) 4 Mg Tab.rapdis 1 Tab PO PRN Q6-8HRS PRN [Diclofenac Sodium] 100 GM Gel..gram. 1 Christo TP BID 30 Days Reported Percocet 7.5-325 Mg Tablet (Oxycodone/Acetaminophen) 1 Each Tablet 1 Tab PO PRN Q6HRS PRN Renal-Irvin Tablet (Folic Acid/Vit Bcomp,C) 0.8 Mg Tablet 0.8 Mg PO DAILY Novolog (Insulin Aspart) 100 Unit/1 Ml Vial 0 SQ PRN TID PRN Ibuprofen 600 Mg Tablet 600 Mg PO PRN Q12HR PRN Diphenhydramine Hcl 25 Mg Tablet 25 Mg PO QHS Furosemide 80 Mg Tablet 120 Mg PO BID Tresiba (Insulin Degludec) 100 Unit/1 Ml Vial 42 Unit SQ DAILY Ativan (Lorazepam) 1 Mg Tablet 0.5 Mg PO Q4HRS Buspirone Hcl 5 Mg Tablet 5 Mg PO BID Lisinopril 20 Mg Tablet 20 Mg PO DAILY Zofran (Ondansetron Hcl) 4 Mg Tablet 1 Tab PO PRN Q4HRS PRN NITROGLYCERIN SubLingual (Nitroglycerin) 0.4 Mg Tab.subl 0.4 Mg SL PRN Q5MIN PRN Hydralazine Hcl 25 Mg Tablet 1 Tab PO BID Gabapentin 400 Mg Capsule 400 Mg PO BID Citalopram Hbr (Citalopram Hydrobromide) 40 Mg Tablet 40 Mg PO HS Cyclobenzaprine Hcl 10 Mg Tablet 1 Tab PO TID PRN PRN Ranexa (Ranolazine) 1,000 Mg Tab.er.12h 0.5 Tab PO BID Seroquel (Quetiapine Fumarate) 100 Mg Tablet 1 Tab PO QHS Protonix (Pantoprazole Sodium) 20 Mg Tablet.dr 40 Mg PO DAILY Docusate Sodium 100 Mg Capsule 1 Cap PO DAILY Divalproex Sodium 500 Mg Tablet.dr 2 Tab PO BID Aspirin 81 Mg Tab.chew 1 Tab PO DAILY Amitiza (Lubiprostone) 24 Mcg Capsule 1 Cap PO DAILY Norvasc (Amlodipine Besylate) 10 Mg Tablet 10 Mg PO DAILY Coreg (Carvedilol) 25 Mg Tablet 12.5 Mg PO BIDWMEALS Metolazone 5 Mg Tablet 5 Mg PO DAILY Renvela (Sevelamer Carbonate) 800 Mg Tablet 800 Mg PO TIDWMEALS Trazodone Hcl 300 Mg Tablet 150 Mg PO HS Allergies Allergies: Coded Allergies: hydromorphone (Verified Allergy, Severe, Anaphylaxis, 04/04/20) morphine ok ROS General: YES: Fatigue, Malaise; No: Chills, Night Sweats, Appetite, Other PSYCHOLOGICAL ROS: No: Anxiety, Behavioral Disorder, Concentration difficultie, Decreased libido, Depression, Disorientation, Hallucinations, Hostility, Irritablity, Memory difficulties, Mood Swings, Obsessive thoughts, Physical abuse, Sexual abuse, Sleep disturbances, Suicidal ideation, Other Eyes: No Blurry vision, No Decreased vision, No Double vision, No Dry eyes, No Excessive tearing, No Eye Pain, No Itchy Eyes, No Loss of vision, No Photophobia, No Scotomata, No Uses contacts, No Uses glasses, No Other HEENT: No: Heacaches, Visual Changes, Hearing change, Nasal congestion, Nasal discharge, Oral lesions, Sinus pain, Sore Throat, Epistaxis, Sneezing, Snoring, Tinnitus, Vertigo, Vocal changes, Other ALLERGY AND IMMUNOLOGY: No: Hives, Insect Bite Sensitivity, Itchy/Watery Eyes, Nasal Congestion, Post Nasal Drip, Seasonal Allergies, Other Hematological and Lymphatic: No: Bleeding Problems, Blood Clots, Blood Transfusions, Brusing, Night Sweats, Pallor, Swollen Lymph Nodes, Other ENDOCRINE: No: Breast Changes, Galactorrhea, Hair Pattern Changes, Hot Flashes, Malaise/lethargy, Mood Swings, Palpitations, Polydipsia/polyuria, Skin Changes, Temperature Intolerance, Unexpected Weight Changes, Other Breast: No New/Changing Breast Lumps, No Nipple changes, No Nipple discharge, No Other Respiratory: No: Cough, Hemoptysis, Orthopnea, Pleuritic Pain, Shortness of breath, SOB with excertion, Sputum Changes, Stridor, Tachypnea, Wheezing, Other Cardiovascular: No Chest Pain, No Palpitations, No Orthopnea, No Paroxysmal Noc. Dyspnea, No Edema, No Lt Headedness, No Other Gastrointestinal: No Nausea, No Vomiting, No Abdominal Pain, No Diarrhea, No Constipation, No Melena, No Hematochezia, No Other Genitourinary: No Dysuria, No Frequency, No Incontinence, No Hematuria, No Retention, No Discharge, No Urgency, No Pain, No Flank Pain, No Other, No , No , No , No , No , No , No Musculoskeletal: No Gait Disturbance, No Joint Pain, No Joint Stiffness, No Joint Swelling, No Muscle Pain, No Muscular Weakness, No Pain In:, No Swelling In:, No Other Neurological: No Behavorial Changes, No Bowel/Bladder ControlChng, No Confusi on, No Dizziness, No Gait Disturbance, No Headaches, No Impaired Coord/balance, No Memory Loss, No Numbness/Tingling, No Seizures, No Speech Problems, No Tremors, No Visual Changes, No Weakness, No Other Skin: No Dry Skin, No Eczema, No Hair Changes, No Lumps, No Mole Changes, No Mottling, No Nail Changes, No Pruritus, No Rash, No Skin Lesion Changes, No Other, No Acne Physical Exam General: Alert, Oriented X3, Cooperative, No acute distress HEENT: Atraumatic, PERRLA, EOMI, Mucous membr. moist/pink Lungs: Clear to auscultation, Normal air movement Heart: S1S2, RRR, no thrills, no rubs, no gallops, no murmurs Abdomen: Normal bowel sounds, Soft, No tenderness, No hepatosplenomegaly, No masses, Other (PD cath clean) Extremities: No clubbing, No cyanosis, No edema, Normal pulses, No tenderness/swelling Skin: No rashes, No breakdown, No significant lesion Neuro: Normal gait, Normal speech, Strength at 5/5 X4 ext, Normal tone, Sensati on intact, Cranial nerves 3-12 NL, Reflexes 2+ Psych/Mental Status: Mental status NL, Mood NL Vitals Vitals Vital Signs Date Time Temp Pulse Resp B/P (MAP) Pulse Ox O2 Delivery O2 Flow Rate FiO2 05/11/20 07:38 16 98 05/11/20 06:38 Room Air 05/11/20 03:15 98.5 76 179/77 (111) 98.5 Labs Labs Laboratory Tests Test 05/10/20 23:50 05/10/20 23:55 05/11/20 01:04 05/11/20 03:36 Glucose (Fingerstick) 600 mg/dL (70-99) 510 mg/dL (70-99) 292 mg/dL (70-99) White Blood Count 10.2 x10^3/uL (4.0-11.0) Red Blood Count 3.50 x10^6/uL (4.30-5.70) Hemoglobin 11.4 g/dL (13.0-17.5) Hematocrit 33.7 % (39.0-53.0) Mean Corpuscular Volume 96 fL (79-100) Mean Corpuscular Hemoglobin 33 pg (25-35) Mean Corpuscular Hemoglobin Concent 34 g/dL (31-37) Red Cell Distribution Width 12.9 % (11.5-14.5) Platelet Count 264 x10^3/uL (140-400) Neutrophils (%) (Auto) 68 % (31-73) Lymphocytes (%) (Auto) 22 % (24-48) Monocytes (%) (Auto) 8 % (0-9) Eosinophils (%) (Auto) 1 % (0-3) Basophils (%) (Auto) 1 % (0-3) Neutrophils # (Auto) 6.9 x10^3/uL (1.8-7.7) Lymphocytes # (Auto) 2.2 x10^3/uL (1.0-4.8) Monocytes # (Auto) 0.8 x10^3/uL (0.0-1.1) Eosinophils # (Auto) 0.1 x10^3/uL (0.0-0.7) Basophils # (Auto) 0.1 x10^3/uL (0.0-0.2) Sodium Level 128 mmol/L (136-145) Potassium Level 4.9 mmol/L (3.5-5.1) Chloride Level 92 mmol/L (98-107) Carbon Dioxide Level 26 mmol/L (21-32) Anion Gap 10 (6-14) Blood Urea Nitrogen 47 mg/dL (8-26) Creatinine 5.5 mg/dL (0.7-1.3) Estimated GFR (Cockcroft-Gault) 11.0 BUN/Creatinine Ratio 9 (6-20) Glucose Level 650 mg/dL (70-99) Calcium Level 7.8 mg/dL (8.5-10.1) Total Bilirubin 0.3 mg/dL (0.2-1.0) Aspartate Amino Transf (AST/SGOT) 13 U/L (15-37) Alanine Aminotransferase (ALT/SGPT) 17 U/L (16-63) Alkaline Phosphatase 157 U/L (46-116) Total Protein 6.8 g/dL (6.4-8.2) Albumin 3.0 g/dL (3.4-5.0) Albumin/Globulin Ratio 0.8 (1.0-1.7) Test 05/11/20 04:57 05/11/20 06:41 05/11/20 07:43 Glucose (Fingerstick) 145 mg/dL (70-99) 84 mg/dL (70-99) 76 mg/dL (70-99) Laboratory Tests Test 05/10/20 23:50 05/10/20 23:55 05/11/20 01:04 05/11/20 03:36 Glucose (Fingerstick) 600 mg/dL (70-99) 510 mg/dL (70-99) 292 mg/dL (70-99) White Blood Count 10.2 x10^3/uL (4.0-11.0) Red Blood Count 3.50 x10^6/uL (4.30-5.70) Hemoglobin 11.4 g/dL (13.0-17.5) Hematocrit 33.7 % (39.0-53.0) Mean Corpuscular Volume 96 fL (79-100) Mean Corpuscular Hemoglobin 33 pg (25-35) Mean Corpuscular Hemoglobin Concent 34 g/dL (31-37) Red Cell Distribution Width 12.9 % (11.5-14.5) Platelet Count 264 x10^3/uL (140-400) Neutrophils (%) (Auto) 68 % (31-73) Lymphocytes (%) (Auto) 22 % (24-48) Monocytes (%) (Auto) 8 % (0-9) Eosinophils (%) (Auto) 1 % (0-3) Basophils (%) (Auto) 1 % (0-3) Neutrophils # (Auto) 6.9 x10^3/uL (1.8-7.7) Lymphocytes # (Auto) 2.2 x10^3/uL (1.0-4.8) Monocytes # (Auto) 0.8 x10^3/uL (0.0-1.1) Eosinophils # (Auto) 0.1 x10^3/uL (0.0-0.7) Basophils # (Auto) 0.1 x10^3/uL (0.0-0.2) Sodium Level 128 mmol/L (136-145) Potassium Level 4.9 mmol/L (3.5-5.1) Chloride Level 92 mmol/L (98-107) Carbon Dioxide Level 26 mmol/L (21-32) Anion Gap 10 (6-14) Blood Urea Nitrogen 47 mg/dL (8-26) Creatinine 5.5 mg/dL (0.7-1.3) Estimated GFR (Cockcroft-Gault) 11.0 BUN/Creatinine Ratio 9 (6-20) Glucose Level 650 mg/dL (70-99) Calcium Level 7.8 mg/dL (8.5-10.1) Total Bilirubin 0.3 mg/dL (0.2-1.0) Aspartate Amino Transf (AST/SGOT) 13 U/L (15-37) Alanine Aminotransferase (ALT/SGPT) 17 U/L (16-63) Alkaline Phosphatase 157 U/L (46-116) Total Protein 6.8 g/dL (6.4-8.2) Albumin 3.0 g/dL (3.4-5.0) Albumin/Globulin Ratio 0.8 (1.0-1.7) Test 05/11/20 04:57 05/11/20 06:41 05/11/20 07:43 Glucose (Fingerstick) 145 mg/dL (70-99) 84 mg/dL (70-99) 76 mg/dL (70-99) VTE Prophylaxis Ordered VTE Prophylaxis Devices: No VTE Pharmacological Prophylaxi: Yes Assessment/Plan Assessment/Plan A/P: HHNK - insulin GTT for 24 hours. change back to home regimen Diabetes, II--insulin dependent - will cont 42u glargine and sliding scale CAD s/p CABG. Cath 2016 with patent grafts HTN - will cont meds BP disorder - on seroquel Seizures - on depakote Acute on chronic diastolic CHF; Echo 07/19 with preserved LV systolic function - will diurese, still makes some urine, likely gained weight 2/2 starting PD, will need UF Hyperlipidemia - cont statin ESRD on HD - transitioning to PD, will consult nephrology Weight gain - dry weight previously 110kg, now 114kg, possibly related to new PD status, will consult nephrology for further recs. FEN - Renal ADA PPX - heparin FULL CODE Dispo - inpatient for 2 midnights Justicifation of Admission Dx: Justifications for Admission: Justification of Admission Dx: Yes GALI ROMERO MD May 11, 2020 08:03
[2020-05-11] MEDS ORDERED: RANO500T2 PO (08:13)
[2020-05-11] MEDS ORDERED: PANTOPRAZOLE 40 MG TABLET.DR. PO SCH (08:15)
[2020-05-11] MEDS ORDERED: CARVEDILOL 12.5 MG TABLET. PO SCH (08:15)
[2020-05-11] MEDS ORDERED: RANOLAZINE 500 MG TAB.ER.12H PO SCH (09:00)
[2020-05-11] MEDS ORDERED: LISINOPRIL 20 MG TABLET PO SCH (09:00)
[2020-05-11] MEDS ORDERED: LUBIPROSTONE 24 MCG CAPSULE PO SCH (09:00)
[2020-05-11] MEDS ORDERED: GABAPENTIN 400 MG CAPSULE. PO SCH (09:00)
[2020-05-11] MEDS ORDERED: ASPIRIN CHEWABLE 81 MG TABLET. PO SCH (09:00)
[2020-05-11] MEDS ORDERED: hydrALAZINE 25 MG TABLET PO SCH (09:00)
[2020-05-11] MEDS ORDERED: DOCUSATE SODIUM 100 MG CAPSULE. PO SCH (09:00)
[2020-05-11] MEDS ORDERED: amLODIPine BESYLATE 10 MG TABLET PO SCH (09:00)
[2020-05-11] MEDS ORDERED: busPIRone 5 MG TABLET. PO SCH (09:00)
[2020-05-11] MEDS ORDERED: DIVALPROEX DELAYED RELEASE 500 MG TABLET.DR. PO SCH (09:00)
[2020-05-11] MEDS ORDERED: INSULIN DEGLUDEC 42 UNIT SQ SCH (09:00)
[2020-05-11] MEDS ORDERED: FOLIC/VIT B COMP W-C (RENAL) TABLET. PO SCH (09:00)
[2020-05-11] MEDS ORDERED: CITALOPRAM 20 MG TABLET. PO SCH (09:00)
[2020-05-11] MEDS ORDERED: DICLOFENAC SODIUM 1% TOPICAL GEL 100GM TUBE. TP SCH (09:00)
--- NOTE | 2020-05-11 09:30 | NUR ---
Pt left against medical advice stating they weren't going to wait for the doctor they have been waiting all night. Explained to the patient the importance of checking their blood sugar and monitoring their blood pressure at home. The patient was also told to make a follow up appointment with their primary care provider as soon as they can get in.
[2020-05-11] MEDS ORDERED: INSULIN LISPRO 300 UNITS/3 ML VIAL. SQ SCH (11:30)
--- NOTE | 2020-05-11 11:35 | PDOC3 ---
Discharge Summary Visit Information Date of Admission: May 11, 2020 Date of Discharge: May 11, 2020 Admitting Diagnosis: Hyperglycemia Final Diagnosis Problems Medical Problems: (1) Hypertension Status: Chronic Brief Hospital Course Allergies Allergies Coded Allergies Type Severity Reaction Last Updated Verified hydromorphone Allergy Severe Anaphylaxis 04/04/20 Yes Vital Signs Vital Signs Date Time Temp Pulse Resp B/P (MAP) Pulse Ox O2 Delivery O2 Flow Rate FiO2 05/11/20 08:00 Room Air 05/11/20 07:38 16 98 05/11/20 07:00 98.1 86 155/85 (108) 98.1 Lab Results Laboratory Tests Test 05/10/20 23:50 05/10/20 23:55 05/11/20 01:04 05/11/20 03:36 Glucose (Fingerstick) 600 mg/dL (70-99) 510 mg/dL (70-99) 292 mg/dL (70-99) White Blood Count 10.2 x10^3/uL (4.0-11.0) Red Blood Count 3.50 x10^6/uL (4.30-5.70) Hemoglobin 11.4 g/dL (13.0-17.5) Hematocrit 33.7 % (39.0-53.0) Mean Corpuscular Volume 96 fL (79-100) Mean Corpuscular Hemoglobin 33 pg (25-35) Mean Corpuscular Hemoglobin Concent 34 g/dL (31-37) Red Cell Distribution Width 12.9 % (11.5-14.5) Platelet Count 264 x10^3/uL (140-400) Neutrophils (%) (Auto) 68 % (31-73) Lymphocytes (%) (Auto) 22 % (24-48) Monocytes (%) (Auto) 8 % (0-9) Eosinophils (%) (Auto) 1 % (0-3) Basophils (%) (Auto) 1 % (0-3) Neutrophils # (Auto) 6.9 x10^3/uL (1.8-7.7) Lymphocytes # (Auto) 2.2 x10^3/uL (1.0-4.8) Monocytes # (Auto) 0.8 x10^3/uL (0.0-1.1) Eosinophils # (Auto) 0.1 x10^3/uL (0.0-0.7) Basophils # (Auto) 0.1 x10^3/uL (0.0-0.2) Sodium Level 128 mmol/L (136-145) Potassium Level 4.9 mmol/L (3.5-5.1) Chloride Level 92 mmol/L (98-107) Carbon Dioxide Level 26 mmol/L (21-32) Anion Gap 10 (6-14) Blood Urea Nitrogen 47 mg/dL (8-26) Creatinine 5.5 mg/dL (0.7-1.3) Estimated GFR (Cockcroft-Gault) 11.0 BUN/Creatinine Ratio 9 (6-20) Glucose Level 650 mg/dL (70-99) Calcium Level 7.8 mg/dL (8.5-10.1) Total Bilirubin 0.3 mg/dL (0.2-1.0) Aspartate Amino Transf (AST/SGOT) 13 U/L (15-37) Alanine Aminotransferase (ALT/SGPT) 17 U/L (16-63) Alkaline Phosphatase 157 U/L (46-116) Total Protein 6.8 g/dL (6.4-8.2) Albumin 3.0 g/dL (3.4-5.0) Albumin/Globulin Ratio 0.8 (1.0-1.7) Test 05/11/20 04:57 05/11/20 06:41 05/11/20 07:43 Glucose (Fingerstick) 145 mg/dL (70-99) 84 mg/dL (70-99) 76 mg/dL (70-99) Laboratory Tests Test 05/10/20 23:50 05/10/20 23:55 05/11/20 01:04 05/11/20 03:36 Glucose (Fingerstick) 600 mg/dL (70-99) 510 mg/dL (70-99) 292 mg/dL (70-99) White Blood Count 10.2 x10^3/uL (4.0-11.0) Red Blood Count 3.50 x10^6/uL (4.30-5.70) Hemoglobin 11.4 g/dL (13.0-17.5) Hematocrit 33.7 % (39.0-53.0) Mean Corpuscular Volume 96 fL (79-100) Mean Corpuscular Hemoglobin 33 pg (25-35) Mean Corpuscular Hemoglobin Concent 34 g/dL (31-37) Red Cell Distribution Width 12.9 % (11.5-14.5) Platelet Count 264 x10^3/uL (140-400) Neutrophils (%) (Auto) 68 % (31-73) Lymphocytes (%) (Auto) 22 % (24-48) Monocytes (%) (Auto) 8 % (0-9) Eosinophils (%) (Auto) 1 % (0-3) Basophils (%) (Auto) 1 % (0-3) Neutrophils # (Auto) 6.9 x10^3/uL (1.8-7.7) Lymphocytes # (Auto) 2.2 x10^3/uL (1.0-4.8) Monocytes # (Auto) 0.8 x10^3/uL (0.0-1.1) Eosinophils # (Auto) 0.1 x10^3/uL (0.0-0.7) Basophils # (Auto) 0.1 x10^3/uL (0.0-0.2) Sodium Level 128 mmol/L (136-145) Potassium Level 4.9 mmol/L (3.5-5.1) Chloride Level 92 mmol/L (98-107) Carbon Dioxide Level 26 mmol/L (21-32) Anion Gap 10 (6-14) Blood Urea Nitrogen 47 mg/dL (8-26) Creatinine 5.5 mg/dL (0.7-1.3) Estimated GFR (Cockcroft-Gault) 11.0 BUN/Creatinine Ratio 9 (6-20) Glucose Level 650 mg/dL (70-99) Calcium Level 7.8 mg/dL (8.5-10.1) Total Bilirubin 0.3 mg/dL (0.2-1.0) Aspartate Amino Transf (AST/SGOT) 13 U/L (15-37) Alanine Aminotransferase (ALT/SGPT) 17 U/L (16-63) Alkaline Phosphatase 157 U/L (46-116) Total Protein 6.8 g/dL (6.4-8.2) Albumin 3.0 g/dL (3.4-5.0) Albumin/Globulin Ratio 0.8 (1.0-1.7) Test 05/11/20 04:57 05/11/20 06:41 05/11/20 07:43 Glucose (Fingerstick) 145 mg/dL (70-99) 84 mg/dL (70-99) 76 mg/dL (70-99) Brief Hospital Course Mr Bedolla 54 yo M w/ PMHx smoker, CAD, ischemic CM, ESRD on HD, BP disorder, seizure disorder, DM2, HTN who presents with hyperglycemia. Patient states his blood sugars have been in the 600s all morning. Patient states he has dosed himself with Humalog 10 units throughout the day as well as this evening used his Lantus. Patient's blood sugar continues to be in the 600. Patient has no complaints he denies any headache chest pain shortness of breath nausea vomiting or diarrhea. Patient states similar episode in the past where he was admitted to the hospital and placed on insulin drip. He states at that time no cause was identified. He is s/p PD cath placement 04/04/2020 with no signs of peritonitis. T his past week he had daily PD in clinic for teaching and on Tuesday has HD as well, which he went to on 04/26/2020 without event. He rates his pain a 10 out of 10. He has been feeling pain after eating so has not eaten today or taken any meds, including his pain medications. Negative COVID-19 on March 12, 2020. Denies fever, vomiting, diarrhea, dizziness, syncope, headache, vision changes, focal weakness, numbness or tingling and no recent travel or sick contacts. He relates to me he was on hospice until 4 months ago. Weight up 4kg from dry weight of 110kg. Labs: WBC 10.2, Hb 11.4 platelets 264, NA 128, K4.7, BUN 47, CR 5.5, glucose 650, calcium 7.8, albumin 3, alkaline phosphatase 157. Admitted for further treatment Glucose down to 84 after 12 hours, he demanded IV pain medication for his chronic pain and left against medical advice. Problem list: HHNK - insulin GTT for 24 hours. change back to home regimen Diabetes, II--insulin dependent - will cont 42u glargine and sliding scale CAD s/p CABG. Cath 2016 with patent grafts HTN - will cont meds BP disorder - on seroquel Seizures - on depakote Acute on chronic diastolic CHF; Echo 07/19 with preserved LV systolic function - will diurese, still makes some urine, likely gained weight 2/2 starting PD, will need UF Hyperlipidemia - cont statin ESRD on HD - transitioning to PD, will consult nephrology Weight gain - dry weight previously 110kg, now 114kg, possibly related to new PD status, will consult nephrology for further recs. Greater than 135 minutes spent on patient care. Patient left AMA Discharge Information Condition at Discharge: Comment (AMA) Follow Up: Weeks Disposition/Orders: Other (AMA) Scheduled Amlodipine Besylate (Norvasc) 10 Mg Tablet, 10 MG PO DAILY, (Reported) Entered as Reported by: Betzy Norris on 07/24/18317 Last Action: Continued on 05/11/20 0800 by GALI ROMERO MD Aspirin (Aspirin) 81 Mg Tab.chew, 1 TAB PO DAILY for , #30 Ref 3 (Reported) Entered as Reported by: TREMAYNE ROMERO RN on 07/16/19 9103 Last Action: Continued on 05/11/20 0800 by GALI ROMERO MD Buspirone Hcl (Buspirone Hcl) 5 Mg Tablet, 5 MG PO BID for ., (Reported) Entered as Reported by: BHUPENDRA PEREZ on 01/17/20 1035 Last Action: Continued on 05/11/20 0800 by GALI ROMERO MD Carvedilol (Coreg) 25 Mg Tablet, 12.5 MG PO BIDWMEALS for HTN, (Reported) Entered as Reported by: Betzy Norris on 07/24/18317 Last Action: Converted on 05/11/20 0800 by GALI ROMERO MD Citalopram Hydrobromide (Citalopram Hbr) 40 Mg Tablet, 40 MG PO HS for anxiety, (Reported) Entered as Reported by: BRENDON SEGURA on 12/30/19 1016 Last Action: Converted on 05/11/20 0800 by GALI ROMERO MD Diphenhydramine Hcl (Diphenhydramine Hcl) 25 Mg Tablet, 25 MG PO QHS for sleeo, (Reported) Entered as Reported by: SEVEN NIELSEN on 04/03/20 1236 Divalproex Sodium (Divalproex Sodium) 500 Mg Tablet.dr, 2 TAB PO BID for , #60 Ref 1 (Reported) Entered as Reported by: TREMAYNE ROMERO RN on 07/16/19 175 Last Action: Continued on 05/11/20 0800 by GALI ROMERO MD Docusate Sodium (Docusate Sodium) 100 Mg Capsule, 1 CAP PO DAILY for , #30 (Reported) Entered as Reported by: TREMAYNE ROMERO RN on 07/16/19 175 Last Action: Continued on 05/11/20 0800 by GALI ROMERO MD Folic Acid/Vit Bcomp,C (Renal-Irvin Tablet) 0.8 Mg Tablet, 0.8 MG PO DAILY for supplement, (Reported) Entered as Reported by: SEVEN NIELSEN on 04/03/20 1302 Last Action: Continued on 05/11/20 0800 by GALI ROMERO MD Furosemide (Furosemide) 80 Mg Tablet, 120 MG PO BID for water pill, (Reported) Entered as Reported by: PETE AUGUSTINE on 03/11/20 2144 Gabapentin (Gabapentin) 400 Mg Capsule, 400 MG PO BID for pain, (Reported) Entered as Reported by: BRENDON SEGURA on 12/30/19 1016 Last Action: Continued on 05/11/20 0557 by BEVERLY FAUST Hydralazine Hcl (Hydralazine Hcl) 25 Mg Tablet, 1 TAB PO BID for hypertension, #90 Ref 5 (Reported) Entered as Reported by: BRENDON SEGURA on 12/30/19 1016 Last Action: Continued on 05/11/20 0800 by GALI ROMERO MD Insulin Degludec (Tresiba) 100 Unit/1 Ml Vial, 42 UNIT SQ DAILY for Diabetes, (Reported) Entered as Reported by: BHUPENDRA PEREZ on 01/17/20 1058 Last Action: Converted on 05/11/20 0800 by GALI ROMERO MD Lisinopril (Lisinopril) 20 Mg Tablet, 20 MG PO DAILY for FOR HYPERTENSION, #30 Ref 0 (Reported) Entered as Reported by: BHUPENDRA PEREZ on 01/17/20 1035 Last Action: Continued on 05/11/20 0800 by GALI ROMERO MD Lorazepam (Ativan) 1 Mg Tablet, 0.5 MG PO Q4HRS for anxiety, (Reported) Entered as Reported by: BHUPENDRA PEREZ on 01/17/20 1050 Last Action: Continued on 05/11/20799 by GALI ROMERO MD Lubiprostone (Amitiza) 24 Mcg Capsule, 1 CAP PO DAILY for , #60 Ref 5 (Reported) Entered as Reported by: TREMAYNE ROMERO RN on 07/16/191752 Last Action: Continued on 05/11/20799 by GALI ROMERO MD Metolazone (Metolazone) 5 Mg Tablet, 5 MG PO DAILY, #30 Ref 0 (Reported) Entered as Reported by: Betzy Norris on 07/24/18301 Pantoprazole Sodium (Protonix) 20 Mg Tablet.dr, 40 MG PO DAILY for , (Reported) Entered as Reported by: TREMAYNE ROMERO RN on 07/16/191752 Last Action: Converted on 05/11/20799 by GALI ROMERO MD Quetiapine Fumarate (Seroquel) 100 Mg Tablet, 1 TAB PO QHS for , #30 Ref 1 (Reported) Entered as Reported by: TREMAYNE ROMERO RN on 07/16/191752 Last Action: Continued on 05/11/20799 by GALI ROMERO MD Ranolazine (Ranexa) 500 Mg Tab.er.12h, 500 MG PO BID for Angina, (Reported) Entered as Reported by: TABATHA MCCLENDON RN on 05/11/20812 Last Action: New Order on 05/11/20812 by TABATHA MCCLENDON RN Sevelamer Carbonate (Renvela) 800 Mg Tablet, 800 MG PO TIDWMEALS, (Reported) Entered as Reported by: Betzy Norris on 07/24/18301 Last Action: Continued on 05/11/20799 by GALI ROMERO MD Trazodone Hcl (Trazodone Hcl) 300 Mg Tablet, 150 MG PO HS for insomnia, (Reported) Entered as Reported by: Betzy Norris on 07/24/18301 Last Action: Converted on 05/11/20799 by GALI ROMERO MD [Diclofenac Sodium] 100 GM GEL..GRAM., 1 MAYRA TP BID for Costochondritis for 30 Days, #60 Prescribed by: GALI ROMERO MD on 03/14/20 1053 Last Action: Converted on 05/11/20 0800 by GALI ROMERO MD Scheduled PRN Cyclobenzaprine Hcl (Cyclobenzaprine Hcl) 10 Mg Tablet, 1 TAB PO TID PRN PRN for MUSCLE SPASMS, #90 (Reported) Entered as Reported by: ELVA WOOD on 08/31/19 0849 Last Action: Continued on 05/11/20 0557 by BEVERLY FAUST Ibuprofen (Ibuprofen) 600 Mg Tablet, 600 MG PO PRN Q12HR PRN for INFLAMMATION, (Reported) Entered as Reported by: SEVEN NIELSEN on 04/03/20 1236 Insulin Aspart (Novolog) 100 Unit/1 Ml Vial, 0 SQ PRN TID PRN for sliding scale, (Reported) Entered as Reported by: SEVEN NIELSEN on 04/03/20 1302 Nitroglycerin (NITROGLYCERIN SubLingual) 0.4 Mg Tab.subl, 0.4 MG SL PRN Q5MIN PRN for CHEST PAIN, (Reported) Entered as Reported by: BRENDON SEGURA on 12/30/19 1016 Last Action: Continued on 05/11/20 0800 by GALI ROMERO MD Ondansetron (Ondansetron Odt) 4 Mg Tab.rapdis, 1 TAB PO PRN Q6-8HRS PRN for NAUSEA, #16 Prescribed by: MOLINA ART D.O. on 04/20/20 2137 Last Action: Continued on 05/11/20 0800 by GALI ROMERO MD Ondansetron Hcl (Zofran) 4 Mg Tablet, 1 TAB PO PRN Q4HRS PRN for NAUSEA, #20 (Reported) Entered as Reported by: BRENDON SEGURA on 12/30/19 1016 Last Action: Converted on 05/11/20 0800 by GALI ROMERO MD Oxycodone/Apap 7.5-325 (Percocet 7.5-325 Mg Tablet ) 1 Each Tablet, 1 TAB PO PRN Q6HRS PRN for PAIN, Ref 0 (Reported) Entered as Reported by: BEVERLY FAUST on 05/11/20 0557 Last Action: Continued on 05/11/20 0604 by BEVERLY FAUST Justicifation of Admission Dx: Justifications for Admission: Justification of Admission Dx: Yes GALI ROMERO MD May 11, 2020 11:35
[2020-05-11] MEDS ORDERED: QUEtiapine 100 MG TABLET. PO SCH (21:00)
[2020-05-11] MEDS ORDERED: traZODone 50 MG TABLET. PO SCH (21:00)
== END 2020-05-11 09:35 | disposition left against medical advice (07) | DRG 637 ==
LOC: ER 23:44 → 2 SOUTH 05-11 00:45
PROVIDERS: ADMIT Internal Medicine; ATTEND Internal Medicine
DX: E11.00 Type 2 diabetes mellitus with hyperosmolarity without nonketotic hyperglycemic-hyperosmolar coma (NKHHC) (principal); N18.6 End stage renal disease; I50.33 Acute on chronic diastolic (congestive) heart failure; I13.2 Hypertensive heart and chronic kidney disease with heart failure and with stage 5 chronic kidney disease, or end stage renal disease; Z53.29 Procedure and treatment not carried out because of patient's decision for other reasons; Z79.899 Other long term (current) drug therapy; E11.22 Type 2 diabetes mellitus with diabetic chronic kidney disease; Z99.2 Dependence on renal dialysis; Z79.4 Long term (current) use of insulin; F17.210 Nicotine dependence, cigarettes, uncomplicated; F31.9 Bipolar disorder, unspecified; I25.10 Atherosclerotic heart disease of native coronary artery without angina pectoris; Z86.73 Personal history of transient ischemic attack (TIA), and cerebral infarction without residual deficits; E78.5 Hyperlipidemia, unspecified; G40.909 Epilepsy, unspecified, not intractable, without status epilepticus; Z88.8 Allergy status to other drugs, medicaments and biological substances
CPT/HCPCS: 36415; 80053; 82962; 85025; J1815; J3490; J7030; G0378

== ENCOUNTER 2020-05-18 02:17 | Inpatient (IN) | payer MEDICARE, OTHER ==
[~2020-05-18] VITALS: Ht 190.5 cm; Wt 114.5 kg
[~2020-05-18 02:17] MED LIST changes: +OXYC1TAB19 PO; +RANO500T2 PO
--- NOTE | 2020-05-18 02:29 | PHYS DOC ---
Past Medical History Past Medical History: Anxiety, CAD, Cancer, CHF, Diabetes-Type II, High C holesterol, Heart Disease, Hypertension, VA, Renal Disease, Renal Failure, Seizure Additional Past Medical Histor: dialysis; chronic back pain Past Surgical History: Cholecystectomy, Coronary Bypass Surgery Additional Past Surgical Histo: HERNIA, peritoneal dialysis cath Smoking Status: Current Every Day Smoker Alcohol Use: Occasionally Drug Use: None General Adult HPI: HPI: Patient is a 54 year old male brought in by ambulance with altered mental status and fall. Patient has multiple medical problems he just started peritoneal dialysis on Tuesday since that time he has become more confused fell twice no fever no cough that that that knows of. Tonight he fell out of bed blood sugar was normal Patient does make some urine is eating and drinking less denies any abdominal pain except does have some pain when they instilled the peritoneal dialysis fluid. Dr. Monet is patient's primary health organisation manager history is limited by the patient's mental status Review of Systems: Review of Systems: Unable to obtain detailed due to mental status Heart Score: Risk Factors: Risk Factors: DM, Current or recent (<one month) smoker, HTN, HLP, family history of CAD, obesity. Risk Scores: Score 0 - 3: 2.5% MACE over next 6 weeks - Discharge Home Score 4 - 6: 20.3% MACE over next 6 weeks - Admit for Clinical Observation Score 7 - 10: 72.7% MACE over next 6 weeks - Early Invasive Strategies Allergies: Allergies: Allergies Coded Allergies Type Severity Reaction Last Updated Verified hydromorphone Allergy Severe Anaphylaxis 04/04/20 Yes Physical Exam: PE: Constitutional: Well developed, ill-appearing HENT: Normocephalic, atraumatic, bilateral external ears normal, oropharynx dry, no oral exudates, nose normal. [] Eyes: PERRLA, EOMI, conjunctiva normal, no discharge. [] Neck: Normal range of motion, no tenderness, supple, no stridor. [] Cardiovascular:Heart rate regular rhythm, no murmur [] Lungs & Thorax: Decreased breath sounds bilateral bases Abdomen: Bowel sounds normal, soft, no peritoneal signs there is a catheter in place no signs of infection around it Skin: Warm, dry, no erythema, no rash. [] Back: No tenderness, no CVA tenderness. [] Extremities: No tenderness, no cyanosis, no clubbing, ROM intact, 1+ edema cody aterally Neurologic: Eyes are open the patient is confused he is able to follow commands intermittently but then is also grabbing at things that are not there grabbing at the monitor leads pupils are equal reactive to light extraocular movements are intact oriented x1 antigravity all 4 extremities noted Current Patient Data: Vital Signs: 198/94 T 100.5 RECTAL. 99.3 AXILLARY RR NORMAL NOT TACHYCARDIC PULSE 91 EKG: EKG: [] EKG shows sinus rhythm rate of 91 no acute STEMI there were some T wave inversions 1 and aVL Radiology/Procedures: Radiology/Procedures: [] Impression: PATIENT: JULIAN GARCÍA ACCOUNT: [id number] : 1965 LOCATION: ER AGE: 54 SEX: M EXAM STATUS: PRE ER ORD. PHYSICIAN: SAMMY EARL MD REASON: ams PROCEDURE: PORTABLE CHEST 1V EXAM: CT Head without IV contrast INDICATION: Reason: ams. / Spl. Instructions: / History: TECHNIQUE: Multi-detector row CT images were obtained of the head without the use of IV contrast. All CT scans performed at this facility utilize dose optimization techniques as appropriate to the exam, including the following: Automated exposure control and adjustment of the mA and/or KV according to patient size (this includes techniques or standardized protocols for targeted exams where dose is indication/reason for exam). COMPARISON: None FINDINGS: BRAIN PARENCHYMA: No evidence of acute intraparenchymal hemorrhage or infarct. No abnormal parenchymal density or mass. VENTRICLES & EXTRA-AXIAL SPACES: Ventricles are within normal limits. Basilar cisterns are patent. No pathologic extra-axial fluid collection or mass. ORBITS: Orbital contents are unremarkable. SINUSES: Visualized paranasal sinuses and mastoid air cells are clear. OSSEOUS & SOFT TISSUES: Calvarium and skull base are intact. IMPRESSION: Normal CT of the head without contrast. EXAM: CT HEAD AND CERVICAL SPINE WO, PORTABLE CHEST 1V INDICATION: Reason: ams. / Spl. Instructions: / History: . TECHNIQUE: Single view COMPARISON: None FINDINGS: The heart size is normal. The great vessels appear unremarkable. There is no hilar or mediastinal mass. The lungs are clear. There is no pleural effusion or pneumothorax. There are no significant osseous abnormalities. IMPRESSION: No active cardiopulmonary disease. EXAM: CT Cervical Spine without IV contrast INDICATION: Reason: ams. / Spl. Instructions: / History: TECHNIQUE: Multi-detector row CT images were obtained through the cervical spine without the use of IV contrast. Post-processing sagittal and coronal reconstructed images were obtained for interpretation. All CT scans performed at this facility utilize dose optimization techniques as appropriate to the exam, including the following: Automated exposure control and adjustment of the mA and/or KV according to patient size (this includes techniques or standardized protocols for targeted exams where dose is indication/reason for exam). COMPARISON: None FINDINGS: CRANIOCERVICAL JUNCTION: Unremarkable. ALIGNMENT: Alignment is within normal limits. OSSEOUS: No evidence of fracture or bone destruction. DISC SPACES: Unremarkable. FACET JOINTS: Unremarkable. SPINAL CANAL: Unremarkable. NEUROFORAMINA: Unremarkable. SOFT TISSUES: Bilateral carotid calcifications IMPRESSION: Normal CT of the cervical spine. Electronically signed by: Milagros Lerner MD (05/18/2020 3:48 AM) [facility] [place] and SIGNED BY: MILAGROS LERNER MD DATE: 05/18/20 0348 Course & Med Decision Making: Course & Med Decision Making Pertinent Labs and Imaging studies reviewed. (See chart for details) 54-year-old male history of end-stage renal disease who is just recently transition to peritoneal dialysis , CAD, ischemic CM, BP disorder, seizure disorder, DM2, HTN who presents with slowly worsening altered mental status since initiating peritoneal dialysis on Tuesday. Patient appears to have a metabolic diffuse encephalopathy head CT chest x-ray differential is quite broad it would include worsening uremia due to recent onset of peritoneal dialysis perhaps ineffective? Also consider infection such as UTI pneumonia coronavirus checked for all these patient was placed under person under investigation with appropriate PPE throughout. Could have peritonitis but clinical exam is really not consistent with this. Chest x-ray my read I was suspicious of a left basilar opacity this was also present but seems more prominent than the April 27 x-ray. neck supple, doubt meningitis. Extensive lab evaluation was performed blood cultures lactic acid gave dose of IV Zosyn. ALSO ordered vanco. admit to dr richter discussed case with him at 5:50 AM consult to nephrology Troponin leak is very likely related to end-stage renal disease aspirin was given repeat troponin was ordered Neelima Disclaimer: Neelima Disclaimer: This electronic medical record was generated, in whole or in part, using a voice recognition dictation system. Departure Departure Impression: Primary Impression: AMS (altered mental status) Additional Impressions: Fever Person under investigation for COVID-19 Disposition: ADMITTED INPATIENT Admitting Physician: ADAN Condition: GUARDED Referrals: UNKNOWN PCP NAME (PCP) Justicifation of Admission Dx: Justifications for Admission: Justification of Admission Dx: Yes Altered Mental Status: Altered Mental Status SAMMY EARL MD May 18, 2020 02:29
[2020-05-18] MEDS ORDERED: PIP/TAZO PER PHARMACY MC PRN (02:45)
[2020-05-18 02:59] LABS: BILIRUBIN,URINE NEGATIVE (NEG); CLARITY,URINE CLEAR; COLOR,URINE YELLOW; NITRITE,URINE NEGATIVE (NEG); PH,URINE 6.5 (<5.0-8.0); PROTEIN,URINE >=300 mg/dL (NEG-TRACE); UROBILINOGEN,URINE 0.2 mg/dL (0.2 mg/dL)
[2020-05-18 03:06] LABS: BASE EXCESS COOX 0 mmol/L (-3-3); HCO3 COOX 24 mmol/L (21-28); METHEMOGLOBIN 0.4 % (0.0-1.9); OXYHEMOGLOBIN 92.1 %; PCO2 COOX 36 mmHg (35-46); PO2 COOX 69 mmHg (75-108); SAT O2 COOX 93 % (92-99)
[2020-05-18 03:07] LABS: BARBITURATES NEG (NEG); BENZODIAZEPINES NEG (NEG); CANNABINOIDS NEG (NEG); COCAINE NEG (NEG); METHADONE NEG (NEG); OPIATES NEG (NEG); PHENCYCLIDINE NEG (NEG)
[2020-05-18 03:07] LABS: CORRECTED PCO2 COOX 38 mmHg; CORRECTED PH COOX 7.42; CORRECTED PO2 COOX 74 mmHg
[2020-05-18 03:08] LABS: BACTERIA,URINE FEW /HPF (0-FEW); SQUAMOUS EPITHELIAL CELL,UR FEW /LPF
[2020-05-18 03:09] LABS: AMPHETAMINE/METHAMPHETAMINE NEG (NEG)
--- NOTE | 2020-05-18 03:51 | RAD ---
EXAM: CT Head without IV contrast INDICATION: Reason: ams. / Spl. Instructions: / History: TECHNIQUE: Multi-detector row CT images were obtained of the head without the use of IV contrast. All CT scans performed at this facility utilize dose optimization techniques as appropriate to the exam, including the following: Automated exposure control and adjustment of the mA and/or KV according to patient size (this includes techniques or standardized protocols for targeted exams where dose is indication/reason for exam). COMPARISON: None FINDINGS: BRAIN PARENCHYMA: No evidence of acute intraparenchymal hemorrhage or infarct. No abnormal parenchymal density or mass. VENTRICLES & EXTRA-AXIAL SPACES: Ventricles are within normal limits. Basilar cisterns are patent. No pathologic extra-axial fluid collection or mass. ORBITS: Orbital contents are unremarkable. SINUSES: Visualized paranasal sinuses and mastoid air cells are clear. OSSEOUS & SOFT TISSUES: Calvarium and skull base are intact. IMPRESSION: Normal CT of the head without contrast. EXAM: CT HEAD AND CERVICAL SPINE WO, PORTABLE CHEST 1V INDICATION: Reason: ams. / Spl. Instructions: / History: . TECHNIQUE: Single view COMPARISON: None FINDINGS: The heart size is normal. The great vessels appear unremarkable. There is no hilar or mediastinal mass. The lungs are clear. There is no pleural effusion or pneumothorax. There are no significant osseous abnormalities. IMPRESSION: No active cardiopulmonary disease. EXAM: CT Cervical Spine without IV contrast INDICATION: Reason: ams. / Spl. Instructions: / History: TECHNIQUE: Multi-detector row CT images were obtained through the cervical spine without the use of IV contrast. Post-processing sagittal and coronal reconstructed images were obtained for interpretation. All CT scans performed at this facility utilize dose optimization techniques as appropriate to the exam, including the following: Automated exposure control and adjustment of the mA and/or KV according to patient size (this includes techniques or standardized protocols for targeted exams where dose is indication/reason for exam). COMPARISON: None FINDINGS: CRANIOCERVICAL JUNCTION: Unremarkable. ALIGNMENT: Alignment is within normal limits. OSSEOUS: No evidence of fracture or bone destruction. DISC SPACES: Unremarkable. FACET JOINTS: Unremarkable. SPINAL CANAL: Unremarkable. NEUROFORAMINA: Unremarkable. SOFT TISSUES: Bilateral carotid calcifications IMPRESSION: Normal CT of the cervical spine. Electronically signed by: Deisy Lerner MD (05/18/2020 3:48 AM) [facility] [place]
[2020-05-18] MEDS: PIPERACILLIN/TAZOBACTAM 2.25 GM in IV NORMAL SALINE 50ML 50 ML IV SCH ×3 (04:00→20:29)
[2020-05-18] MEDS ORDERED: ACETAMINOPHEN 325 MG TABLET. PO PRN (04:15)
[2020-05-18] MEDS ORDERED: VANCOMYCIN 2 GM in IV NORMAL SALINE 500ML BAG 500 ML IV ONE (05:00)
[2020-05-18 05:09] LABS: BASO % 1 % (0-3); EOS # 0.1 x10^3/uL (0.0-0.7); EOS % 1 % (0-3); HEMATOCRIT 30.3 % (39.0-53.0); HEMOGLOBIN 10.2 g/dL (13.0-17.5); LYMPH # 1.5 x10^3/uL (1.0-4.8); LYMPH % 19 % (24-48); MEAN CORPUSCULAR HEMOGLOBIN 32 pg (25-35); MEAN CORPUSCULAR HGB CONC 34 g/dL (31-37); MEAN CORPUSCULAR VOLUME 94 fL (79-100); MONO % 13 % (0-9); NEUT # 5.3 x10^3/uL (1.8-7.7); NEUT % 67 % (31-73); PLATELET COUNT 166 x10^3/uL (140-400); RED BLOOD COUNT 3.22 x10^6/uL (4.30-5.70); RED CELL DISTRIBUTION WIDTH 13.2 % (11.5-14.5)
[2020-05-18 05:22] LABS: PROTHROMBIN TIME PATIENT 12.3 SEC (11.7-14.0)
[2020-05-18 05:27] LABS: CALCIUM 8.2 mg/dL (8.5-10.1); CREATININE 7.4 mg/dL (0.7-1.3); GFR 7.8; POTASSIUM 4.3 mmol/L (3.5-5.1)
[2020-05-18 05:38] LABS: ALBUMIN 2.6 g/dL (3.4-5.0); ALBUMIN/GLOBULIN RATIO 0.7 (1.0-1.7); MAGNESIUM 1.9 mg/dL (1.8-2.4); TOTAL BILIRUBIN 0.3 mg/dL (0.2-1.0); TOTAL PROTEIN 6.3 g/dL (6.4-8.2)
[2020-05-18] MEDS ORDERED: ASPIRIN CHEWABLE 81 MG TABLET. PO ONE (06:00)
[2020-05-18 08:30] VITALS: BP 165/70
--- NOTE | 2020-05-18 08:30 | NUR ---
Pt admitted to room 656, pt brought up by bed. Pt alert to self upon arrival, opens eyes to name being said. Peritoneal dialysis cath in place to abd, pt previous hemodialysis patient, JAYLONE fistula. called upon arrival.
[2020-05-18] MEDS: VANCOMYCIN PER PHARMACY MC PRN (09:16)
--- NOTE | 2020-05-18 09:17 | NUR ---
Pharmacy Vancomycin Dosing Note S:Consulted to monitor and dose vancomycin started 05/18/20. O:JULIAN GARCÍA is a 54 year old M with HCAP Urosepsis . Height: 6 feet, 3 inches Weight: 113.904999 kg [place] Body Weight: 84.50 Adjusted Body Weight: 96.06 Dosing Weight: Actual Other Antibiotics: ZOSYN 05/18 - LABS: Last BUN: 78 Last Creatinine: 7.4 CAPD Creatinine Clearance: CAPD mL/min Last WBC: 8 Last Procalcitonin: - Tmax (past 24 hours): 100.5 Microbiology: 05/18 PENDING I/O: Drug Levels: Last level: on at Last dose given 05/18/20 at 0500 Vancomycin Dosing: Loading Dose: x1 Dosing Weight: Actual Target Trough: 15-20 A: Based on: WEIGHT, DIALYSIS STATUS, P: 1. GIVE Vancomycin 2000 mg IV One Time 2. Follow up Random level on 05/20/20 at 0600 3. Pharmacy will continue to monitor, follow and adjust therapy as needed. [facility], 05/18/20 [id number]
--- NOTE | 2020-05-18 10:03 | NUR ---
Consult called to Dr. Iglesias, spoke directly.
[2020-05-18 10:45] VITALS: BP 160/70
--- NOTE | 2020-05-18 11:17 | PDOC1 ---
History and Physical Date of Admission Date of Admission DATE: 05/18/20 TIME: 11:15 Identification/Chief Complaint Chief Complaint Patient is a 54 year old male brought in by ambulance with altered mental status and fall. Patient has multiple medical problems he just started peritoneal dialysis on Tue since that time he has become more confused fell twice no fever no cough 05/17 pm, he fell out of bed blood Patient does make some urine is eating and drinking less denies any abdominal pain except does have some pain when they instilled the peritoneal dialysis fluid. 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 history is limited by the patient's mental status Past Medical History Past Medical History Past Medical History Past Medical History Past Medical History: Anxiety, CAD, Cancer, CHF, Diabetes-Type II, High Cholesterol, Heart Disease, Hypertension, [place], Renal Disease, Renal Failure, Seizure Additional Past Medical Histor: dialysis; chronic back pain Past Surgical History: Cholecystectomy, Coronary Bypass Surgery Additional Past Surgical Histo: HERNIA, peritoneal dialysis cath Smoking Status: Current Every Day Smoker Alcohol Use: Occasionally Drug Use: None fhx copd Cardiovascular: CAD, CHF, HTN, Hyperlipidemia, Other Pulmonary: Bronchitis, Pulmonary embolus, Pneumonia, Other CENTRAL NERVOUS SYSTEM: CVA, Periperal neuropathy, Other GI: GERD, Other Heme/Onc: Cancer Psych: Depression Renal/: Chronic renal failure Endocrine: Diabetes, Hyperparathyroidism Past Surgical History Past Surgical History: Cholecystectomy, CABG, Tonsillectomy, Other Family History Family History: High Cholestrol, Hypertension, Kidney Disease Social History Smoke: No ALCOHOL: none Drugs: Cocaine Current Problem List Problem List Problems Medical Problems: (1) Fever Status: Acute (2) Person under investigation for COVID-19 Status: Acute Current Medications Current Medications Current Medications Piperacillin Sod/ Tazobactam Sod (Zosyn Per Pharmacy) 1 each PRN DAILY PRN MC SEE COMMENTS; Start 05/18/20 at 02:45 Piperacillin Sod/ Tazobactam Sod 2.25 gm/Sodium Chloride 50 ml @ 100 mls/hr Q8HRS IV Last administered on 05/18/20at 04:00; Start 05/18/20 at 04:00 Vancomycin HCl (Vanco Per Pharmacy) 1 each PRN DAILY PRN MC SEE COMMENTS Last administered on 05/18/20at 09:16; Start 05/18/20 at 04:15 Acetaminophen (Tylenol) 650 mg PRN Q4HRS PRN PO FEVER > 100.3'F; Start 05/18/20 at 04:15; Stop 05/19/20 at 04:14 Vancomycin HCl 2 gm/Sodium Chloride 500 ml @ 250 mls/hr 1X ONCE IV Last administered on 05/18/20at 05:03; Start 05/18/20 at 05:00; Stop 05/18/20 at 06:59; Status DC Aspirin (Aspirin Chewable) 324 mg 1X ONCE PO ; Start 05/18/20 at 06:00; Stop 05/18/20 at 06:01; Status DC Vancomycin HCl (Vancomycin Random Level) 1 each 1X ONCE MC ; Start 05/20/20 at 06:00; Stop 05/20/20 at 06:01 Active Scripts Active Ondansetron Odt (Ondansetron) 4 Mg Tab.rapdis 1 Tab PO PRN Q6-8HRS PRN [Diclofenac Sodium] 100 GM Gel..gram. 1 Christo TP BID 30 Days Reported Ranexa (Ranolazine) 500 Mg Tab.er.12h 500 Mg PO BID Percocet 7.5-325 Mg Tablet (Oxycodone/Acetaminophen) 1 Each Tablet 1 Tab PO PRN Q6HRS PRN Renal-Irvin Tablet (Folic Acid/Vit Bcomp,C) 0.8 Mg Tablet 0.8 Mg PO DAILY Novolog (Insulin Aspart) 100 Unit/1 Ml Vial 0 SQ PRN TID PRN Ibuprofen 600 Mg Tablet 600 Mg PO PRN Q12HR PRN Diphenhydramine Hcl 25 Mg Tablet 25 Mg PO QHS Furosemide 80 Mg Tablet 120 Mg PO BID Tresiba (Insulin Degludec) 100 Unit/1 Ml Vial 42 Unit SQ DAILY Ativan (Lorazepam) 1 Mg Tablet 0.5 Mg PO Q4HRS Buspirone Hcl 5 Mg Tablet 5 Mg PO BID Lisinopril 20 Mg Tablet 20 Mg PO DAILY Zofran (Ondansetron Hcl) 4 Mg Tablet 1 Tab PO PRN Q4HRS PRN NITROGLYCERIN SubLingual (Nitroglycerin) 0.4 Mg Tab.subl 0.4 Mg SL PRN Q5MIN PRN Hydralazine Hcl 25 Mg Tablet 1 Tab PO BID Gabapentin 400 Mg Capsule 400 Mg PO BID Citalopram Hbr (Citalopram Hydrobromide) 40 Mg Tablet 40 Mg PO HS Cyclobenzaprine Hcl 10 Mg Tablet 1 Tab PO TID PRN PRN Seroquel (Quetiapine Fumarate) 100 Mg Tablet 1 Tab PO QHS Protonix (Pantoprazole Sodium) 20 Mg Tablet.dr 40 Mg PO DAILY Docusate Sodium 100 Mg Capsule 1 Cap PO DAILY Divalproex Sodium 500 Mg Tablet.dr 2 Tab PO BID Aspirin 81 Mg Tab.chew 1 Tab PO DAILY Amitiza (Lubiprostone) 24 Mcg Capsule 1 Cap PO DAILY Norvasc (Amlodipine Besylate) 10 Mg Tablet 10 Mg PO DAILY Coreg (Carvedilol) 25 Mg Tablet 12.5 Mg PO BIDWMEALS Metolazone 5 Mg Tablet 5 Mg PO DAILY Renvela (Sevelamer Carbonate) 800 Mg Tablet 800 Mg PO TIDWMEALS Trazodone Hcl 300 Mg Tablet 150 Mg PO HS Allergies Allergies: Coded Allergies: hydromorphone (Verified Allergy, Severe, Anaphylaxis, 04/04/20) morphine ok ROS Review of System grabbing at the monitor leads ROS NOT ABLE TO COOPERATE Respiratory: No: Cough, Hemoptysis, Orthopnea, Pleuritic Pain, Shortness of breath, SOB with excertion, Sputum Changes, Stridor, Tachypnea, Wheezing, Other Musculoskeletal: Yes Gait Disturbance Neurological: Yes Confusion Physical Exam Physical Exam Constitutional: Well developed, ill-appearing HENT: Normocephalic, atraumatic, bilateral external ears normal, oropharynx dry, no oral exudates, nose normal. [] Eyes: PERRLA, EOMI, conjunctiva normal, no discharge. [] Neck: Normal range of motion, no tenderness, supple, no stridor. [] Cardiovascular:Heart rate regular rhythm, no murmur [] Lungs & Thorax: Decreased breath sounds bilateral bases Abdomen: Bowel sounds normal, soft, no peritoneal signs there is a catheter in place no signs of infection around it Skin: Warm, dry, no erythema, no rash. [] Back: No tenderness, no CVA tenderness. [] Extremities: No tenderness, no cyanosis, no clubbing, ROM intact, 1+ edema bilaterally Neurologic: Eyes are open the patient is confused he is able to follow commands intermittently but then is also grabbing at things that are not there grabbing at the monitor leads General: Cooperative, No acute distress Heart: RRR Breasts: Not examined Abdomen: Soft Rectal Exam: not examined Skin: No breakdown Neuro: Cranial nerves 3-12 NL Vitals Vitals Vital Signs Date Time Temp Pulse Resp B/P (MAP) Pulse Ox O2 Delivery O2 Flow Rate FiO2 05/18/20 10:45 98.1 76 18 160/70 (100) 96 Room Air 98.1 Labs Labs Laboratory Tests Test 05/18/20 02:35 05/18/20 02:45 05/18/20 02:50 05/18/20 04:40 Urine Collection Type Unknown Urine Color Yellow Urine Clarity Clear Urine pH 6.5 (<5.0-8.0) Urine Specific [place] 1.015 (1.000-1.030) Urine Protein >=300 mg/dL (NEG-TRACE) Urine Glucose (UA) 250 mg/dL (NEG) Urine Ketones (Stick) Negative mg/dL (NEG) Urine Blood Negative (NEG) Urine Nitrite Negative (NEG) Urine Bilirubin Negative (NEG) Urine Urobilinogen Dipstick 0.2 mg/dL (0.2 mg/dL) Urine Leukocyte Esterase Negative (NEG) Urine RBC 1-2 /HPF (0-2) Urine WBC 1-4 /HPF (0-4) Urine Squamous Epithelial Cells Few /LPF Urine Bacteria Few /HPF (0-FEW) Urine Opiates Screen Neg (NEG) Urine Methadone Screen Neg (NEG) Urine Barbiturates Neg (NEG) Urine Phencyclidine Screen Neg (NEG) Urine Amphetamine/Methamphetamine Neg (NEG) Urine Benzodiazepines Screen Neg (NEG) Urine Cocaine Screen Neg (NEG) Urine Cannabinoids Screen Neg (NEG) Urine Ethyl Alcohol Neg (NEG) O2 Saturation 93 % (92-99) Arterial Blood pH 7.44 (7.35-7.45) Arterial Blood pH (Temp corrected) 7.42 Arterial Blood pCO2 at Patient Temp 36 mmHg (35-46) Arterial Blood pCO2 (Temp correct) 38 mmHg Arterial Blood pO2 at Patient Temp 69 mmHg (75-108) Arterial Blood pO2 (Temp corrected) 74 mmHg Arterial Blood HCO3 24 mmol/L (21-28) Arterial Blood Base Excess 0 mmol/L (-3-3) Oxyhemoglobin 92.1 % Methemoglobin 0.4 % (0.0-1.9) Carbon Monoxide, Quantitative 0.0 % (0.0-1.9) Glucose (Fingerstick) 109 mg/dL (70-99) White Blood Count 8.0 x10^3/uL (4.0-11.0) Red Blood Count 3.22 x10^6/uL (4.30-5.70) Hemoglobin 10.2 g/dL (13.0-17.5) Hematocrit 30.3 % (39.0-53.0) Mean Corpuscular Volume 94 fL (79-100) Mean Corpuscular Hemoglobin 32 pg (25-35) Mean Corpuscular Hemoglobin Concent 34 g/dL (31-37) Red Cell Distribution Width 13.2 % (11.5-14.5) Platelet Count 166 x10^3/uL (140-400) Neutrophils (%) (Auto) 67 % (31-73) Lymphocytes (%) (Auto) 19 % (24-48) Monocytes (%) (Auto) 13 % (0-9) Eosinophils (%) (Auto) 1 % (0-3) Basophils (%) (Auto) 1 % (0-3) Neutrophils # (Auto) 5.3 x10^3/uL (1.8-7.7) Lymphocytes # (Auto) 1.5 x10^3/uL (1.0-4.8) Monocytes # (Auto) 1.0 x10^3/uL (0.0-1.1) Eosinophils # (Auto) 0.1 x10^3/uL (0.0-0.7) Basophils # (Auto) 0.0 x10^3/uL (0.0-0.2) Prothrombin Time 12.3 SEC (11.7-14.0) Prothromb Time International Ratio 1.0 (0.8-1.1) Sodium Level 135 mmol/L (136-145) Potassium Level 4.3 mmol/L (3.5-5.1) Chloride Level 98 mmol/L (98-107) Carbon Dioxide Level 28 mmol/L (21-32) Anion Gap 9 (6-14) Blood Urea Nitrogen 78 mg/dL (8-26) Creatinine 7.4 mg/dL (0.7-1.3) Estimated GFR (Cockcroft-Gault) 7.8 BUN/Creatinine Ratio 11 (6-20) Glucose Level 103 mg/dL (70-99) Lactic Acid Level 0.9 mmol/L (0.4-2.0) Calcium Level 8.2 mg/dL (8.5-10.1) Magnesium Level 1.9 mg/dL (1.8-2.4) Total Bilirubin 0.3 mg/dL (0.2-1.0) Aspartate Amino Transf (AST/SGOT) 34 U/L (15-37) Alanine Aminotransferase (ALT/SGPT) 46 U/L (16-63) Alkaline Phosphatase 185 U/L (46-116) Creatine Kinase 60 U/L (39-308) Troponin I Quantitative 0.058 ng/mL (0.000-0.055) WI-Glx-D-Type Natriuretic Peptide 16347 pg/mL (0-124) Total Protein 6.3 g/dL (6.4-8.2) Albumin 2.6 g/dL (3.4-5.0) Albumin/Globulin Ratio 0.7 (1.0-1.7) Procalcitonin 0.32 ng/mL (0.00-0.10) Ethyl Alcohol Level < 10 mg/dL (0-10) Test 05/18/20 10:20 05/18/20 10:56 Troponin I Quantitative 0.057 ng/mL (0.000-0.055) Glucose (Fingerstick) 73 mg/dL (70-99) Laboratory Tests Test 05/18/20 02:35 05/18/20 02:45 05/18/20 02:50 05/18/20 04:40 Urine Collection Type Unknown Urine Color Yellow Urine Clarity Clear Urine pH 6.5 (<5.0-8.0) Urine Specific [place] 1.015 (1.000-1.030) Urine Protein >=300 mg/dL (NEG-TRACE) Urine Glucose (UA) 250 mg/dL (NEG) Urine Ketones (Stick) Negative mg/dL (NEG) Urine Blood Negative (NEG) Urine Nitrite Negative (NEG) Urine Bilirubin Negative (NEG) Urine Urobilinogen Dipstick 0.2 mg/dL (0.2 mg/dL) Urine Leukocyte Esterase Negative (NEG) Urine RBC 1-2 /HPF (0-2) Urine WBC 1-4 /HPF (0-4) Urine Squamous Epithelial Cells Few /LPF Urine Bacteria Few /HPF (0-FEW) Urine Opiates Screen Neg (NEG) Urine Methadone Screen Neg (NEG) Urine Barbiturates Neg (NEG) Urine Phencyclidine Screen Neg (NEG) Urine Amphetamine/Methamphetamine Neg (NEG) Urine Benzodiazepines Screen Neg (NEG) Urine Cocaine Screen Neg (NEG) Urine Cannabinoids Screen Neg (NEG) Urine Ethyl Alcohol Neg (NEG) O2 Saturation 93 % (92-99) Arterial Blood pH 7.44 (7.35-7.45) Arterial Blood pH (Temp corrected) 7.42 Arterial Blood pCO2 at Patient Temp 36 mmHg (35-46) Arterial Blood pCO2 (Temp correct) 38 mmHg Arterial Blood pO2 at Patient Temp 69 mmHg (75-108) Arterial Blood pO2 (Temp corrected) 74 mmHg Arterial Blood HCO3 24 mmol/L (21-28) Arterial Blood Base Excess 0 mmol/L (-3-3) Oxyhemoglobin 92.1 % Methemoglobin 0.4 % (0.0-1.9) Carbon Monoxide, Quantitative 0.0 % (0.0-1.9) Glucose (Fingerstick) 109 mg/dL (70-99) White Blood Count 8.0 x10^3/uL (4.0-11.0) Red Blood Count 3.22 x10^6/uL (4.30-5.70) Hemoglobin 10.2 g/dL (13.0-17.5) Hematocrit 30.3 % (39.0-53.0) Mean Corpuscular Volume 94 fL (79-100) Mean Corpuscular Hemoglobin 32 pg (25-35) Mean Corpuscular Hemoglobin Concent 34 g/dL (31-37) Red Cell Distribution Width 13.2 % (11.5-14.5) Platelet Count 166 x10^3/uL (140-400) Neutrophils (%) (Auto) 67 % (31-73) Lymphocytes (%) (Auto) 19 % (24-48) Monocytes (%) (Auto) 13 % (0-9) Eosinophils (%) (Auto) 1 % (0-3) Basophils (%) (Auto) 1 % (0-3) Neutrophils # (Auto) 5.3 x10^3/uL (1.8-7.7) Lymphocytes # (Auto) 1.5 x10^3/uL (1.0-4.8) Monocytes # (Auto) 1.0 x10^3/uL (0.0-1.1) Eosinophils # (Auto) 0.1 x10^3/uL (0.0-0.7) Basophils # (Auto) 0.0 x10^3/uL (0.0-0.2) Prothrombin Time 12.3 SEC (11.7-14.0) Prothromb Time International Ratio 1.0 (0.8-1.1) Sodium Level 135 mmol/L (136-145) Potassium Level 4.3 mmol/L (3.5-5.1) Chloride Level 98 mmol/L (98-107) Carbon Dioxide Level 28 mmol/L (21-32) Anion Gap 9 (6-14) Blood Urea Nitrogen 78 mg/dL (8-26) Creatinine 7.4 mg/dL (0.7-1.3) Estimated GFR (Cockcroft-Gault) 7.8 BUN/Creatinine Ratio 11 (6-20) Glucose Level 103 mg/dL (70-99) Lactic Acid Level 0.9 mmol/L (0.4-2.0) Calcium Level 8.2 mg/dL (8.5-10.1) Magnesium Level 1.9 mg/dL (1.8-2.4) Total Bilirubin 0.3 mg/dL (0.2-1.0) Aspartate Amino Transf (AST/SGOT) 34 U/L (15-37) Alanine Aminotransferase (ALT/SGPT) 46 U/L (16-63) Alkaline Phosphatase 185 U/L (46-116) Creatine Kinase 60 U/L (39-308) Troponin I Quantitative 0.058 ng/mL (0.000-0.055) DT-Cpe-H-Type Natriuretic Peptide 94164 pg/mL (0-124) Total Protein 6.3 g/dL (6.4-8.2) Albumin 2.6 g/dL (3.4-5.0) Albumin/Globulin Ratio 0.7 (1.0-1.7) Procalcitonin 0.32 ng/mL (0.00-0.10) Ethyl Alcohol Level < 10 mg/dL (0-10) Test 05/18/20 10:20 05/18/20 10:56 Troponin I Quantitative 0.057 ng/mL (0.000-0.055) Glucose (Fingerstick) 73 mg/dL (70-99) Images Images EXAM: CT HEAD AND CERVICAL SPINE WO, PORTABLE CHEST 1V INDICATION: Reason: ams. / Spl. Instructions: / History: . TECHNIQUE: Single view COMPARISON: None FINDINGS: The heart size is normal. The great vessels appear unremarkable. There is no hilar or mediastinal mass. The lungs are clear. There is no pleural effusion or pneumothorax. There are no significant osseous abnormalities. IMPRESSION: No active cardiopulmonary disease. EXAM: CT Cervical Spine without IV contrast INDICATION: Reason: ams. / Spl. Instructions: / History: TECHNIQUE: Multi-detector row CT images were obtained through the cervical spine without the use of IV contrast. Post-processing sagittal and coronal reconstructed images were obtained for interpretation. All CT scans performed at this facility utilize dose optimization techniques as appropriate to the exam, including the following: Automated exposure control and adjustment of the mA and/or KV according to patient size (this includes techniques or standardized protocols for targeted exams where dose is indication/reason for exam). COMPARISON: None FINDINGS: CRANIOCERVICAL JUNCTION: Unremarkable. ALIGNMENT: Alignment is within normal limits. OSSEOUS: No evidence of fracture or bone destruction. DISC SPACES: Unremarkable. FACET JOINTS: Unremarkable. SPINAL CANAL: Unremarkable. NEUROFORAMINA: Unremarkable. SOFT TISSUES: Bilateral carotid calcifications IMPRESSION: Normal CT of the cervical spine. Electronically signed by: Milagros Lerner MD (05/18/2020 3:48 AM) [facility] [place]CTATED and SIGNED BY: MILAGROS LERNER MD DATE: 05/18/20 0348 VTE Prophylaxis Ordered VTE Prophylaxis Devices: Yes VTE Pharmacological Prophylaxi: Yes Assessment/Plan Assessment/Plan Impression: AMS (altered mental status) obesity Fever Person under investigation for COVID-19 End-stage renal disease secondary to diabetic nephropathy and hypertensive nephrosclerosis -- WAS Hemodialysis dependent, now peritoneal dialysis dependent. apparent decline since instituting peritoneal dialysis.? SEPSIS Diabetes mellitus and hypertension., hx poor control Confusional state., new FEVER plan ADMITTED BLOOD CULTURES ID CONSULT Normal CT of the head without contrast. covid 19 screen TELE BED NEUROCHECKS Q 4 HRS IV ZOSYN, VANC accuchecks 76 MIN pt exam, chart review, > 50% of time spent with exam, chart review, pt care coordination Justicifation of Admission Dx: Justifications for Admission: Justification of Admission Dx: Yes Altered Mental Status: Altered Mental Status SALOMÓN HADDAD MD May 18, 2020 11:17
--- NOTE | 2020-05-18 14:54 | CONS ---
DATE OF CONSULTATION: 05/18/2020 REQUESTING PHYSICIAN: Hospitalist. REASON FOR CONSULTATION: End-stage renal disease. REASON FOR ADMISSION: Confusion. The patient is PUI for COVID-19 and as such, the patient was not examined at the bedside. Information is provided from the medical record and nursing staff and Emergency Room physician. HISTORY OF PRESENT ILLNESS: The patient is 54-year-old gentleman with history of diabetes mellitus, hypertension, end-stage renal disease. The patient has been hemodialysis dependent. Recently had a peritoneal dialysis catheter placement and initiation on peritoneal dialysis 4 days prior to this admission. He has become more confused. He has fallen twice. Apparently fell out of bed. Blood sugar was assessed to be normal. There is no abdominal pain. CT scan of the head is unremarkable for acute abnormality. PAST MEDICAL HISTORY: Diabetes mellitus, hypertension, end-stage renal disease, hemodialysis and peritoneal dialysis dependent, coronary artery disease with congestive cardiomyopathy, anemia of chronic kidney disease secondary to hyperparathyroidism, renal disease, seizures, cholecystectomy, coronary bypass grafting, hernia repair, vascular access placement, peritoneal dialysis catheter placement. ALLERGIES: HYDROMORPHONE. MEDICATIONS: Reviewed per medication list. FAMILY HISTORY: Noncontributory. SOCIAL HISTORY: Resides with his . Occasional alcohol use. Current every day smoker. REVIEW OF SYSTEMS: Unobtainable from the patient. PHYSICAL EXAMINATION: GENERAL: The patient is PUI for COVID-19 and as such bedside examination was not pursued. Emergency Room physician, physical exam is reviewed and revealed 1+ edema bilaterally. NEUROPSYCHIATRIC: He was confused and unable to follow commands intermittently, but was grabbing at things. LABORATORY DATA: ABG: pH 7.44, pCO2 of 36, pO2 of 69, bicarbonate 24. Sodium 135, potassium 4.3, chloride 98, CO2 of 28, BUN 78, creatinine 7.4, GFR 7.8, glucose 103, total bilirubin 0.3. White count 8, hemoglobin 10.2, hematocrit ____, platelets 166. Urinalysis: Specific gravity 1.015 greater than 300 mg percent protein, negative leukocyte esterase, few bacteria. IMPRESSION: 1. End-stage renal disease secondary to diabetic nephropathy and hypertensive nephrosclerosis -- up until recently. Hemodialysis dependent, now peritoneal dialysis dependent. He has had apparent decline since instituting peritoneal dialysis. 2. Diabetes mellitus and hypertension. 3. Confusional state. DISCUSSION: The patient's level of azotemia would not be typical of a profoundly uremic patient with altered mental status. PICC line in light of longer standing chronic kidney disease. Should assess for other etiologies. He has received antibiotics pending culture results. I certainly concur with the same. At the present time, we will not proceed with peritoneal dialysis tonight but we will proceed with hemodialysis tomorrow. We will follow. MOLINA HERNANDEZ MD DR: CHAI/kareem JOB#: [id number] / [id number]
[2020-05-18 15:00] VITALS: BP 131/61
[2020-05-18] MEDS ORDERED: ALBUTEROL SULFATE 2.5 MG/3 ML NEBU. NEB PRN (16:30)
[2020-05-18] MEDS ORDERED: DEXTROSE 50% 25 GM / 50ML DISP.SYRIN. IV PRN (16:30)
[2020-05-18] MEDS ORDERED: guaiFENesin ORAL 200 MG/10 ML LIQUID. PO PRN (16:30)
[2020-05-18] MEDS ORDERED: VANCOMYCIN PER PHARMACY MC PRN (16:30)
[2020-05-18] MEDS ORDERED: DOCUSATE SODIUM 100 MG CAPSULE. PO PRN (16:30)
[2020-05-18] MEDS ORDERED: ACETAMINOPHEN 650 MG SUPP.RECT. PR PRN (16:30)
[2020-05-18] MEDS ORDERED: 0.9 % SODIUM CHLORIDE 10 ML DISP.SYRIN. IV PRN (16:30)
[2020-05-18] MEDS: INSULIN LISPRO 300 UNITS/3 ML VIAL. SQ SCH (16:35)
[2020-05-18] MEDS: SEVELAMER CARBONATE 800 MG TABLET. PO SCH (16:51)
[2020-05-18] MEDS: PANTOPRAZOLE 40 MG TABLET.DR. PO SCH (16:51)
[2020-05-18] MEDS: amLODIPine BESYLATE 10 MG TABLET PO SCH (17:07)
[2020-05-18] MEDS: CARVEDILOL 12.5 MG TABLET. PO SCH (17:07)
[2020-05-18 19:00] VITALS: BP 150/71
[2020-05-18] MEDS: DIVALPROEX DELAYED RELEASE 500 MG TABLET.DR. PO SCH (20:28)
[2020-05-18] MEDS: hydrALAZINE 25 MG TABLET PO SCH (20:30)
[2020-05-18] MEDS: RANOLAZINE 500 MG TAB.ER.12H PO SCH (20:30)
[2020-05-18] MEDS: DICLOFENAC SODIUM 1% TOPICAL GEL 100GM TUBE. TP SCH (20:30)
[2020-05-18 22:44] VITALS: BP 155/61
[2020-05-19 02:21] VITALS: BP 154/72
[2020-05-19] MEDS: PIPERACILLIN/TAZOBACTAM 2.25 GM in IV NORMAL SALINE 50ML 50 ML IV SCH ×3 (05:50→21:49)
[2020-05-19 07:00] VITALS: BP 152/66
[2020-05-19 07:59] LABS: BASO % 1 % (0-3); EOS # 0.2 x10^3/uL (0.0-0.7); EOS % 3 % (0-3); HEMATOCRIT 26.1 % (39.0-53.0); HEMOGLOBIN 8.9 g/dL (13.0-17.5); LYMPH # 1.3 x10^3/uL (1.0-4.8); LYMPH % 22 % (24-48); MEAN CORPUSCULAR HEMOGLOBIN 32 pg (25-35); MEAN CORPUSCULAR HGB CONC 34 g/dL (31-37); MEAN CORPUSCULAR VOLUME 94 fL (79-100); MONO # 0.9 x10^3/uL (0.0-1.1); MONO % 14 % (0-9); NEUT # 3.8 x10^3/uL (1.8-7.7); NEUT % 61 % (31-73); PLATELET COUNT 134 x10^3/uL (140-400); RED BLOOD COUNT 2.79 x10^6/uL (4.30-5.70); WHITE BLOOD COUNT 6.2 x10^3/uL (4.0-11.0)
[2020-05-19] MEDS: INSULIN LISPRO 300 UNITS/3 ML VIAL. SQ SCH ×3 (08:00→17:00)
[2020-05-19 08:30] LABS: ALBUMIN 2.2 g/dL (3.4-5.0); ALBUMIN/GLOBULIN RATIO 0.6 (1.0-1.7); CALCIUM 7.9 mg/dL (8.5-10.1); CREATININE 8.3 mg/dL (0.7-1.3); GFR 6.8; POTASSIUM 4.8 mmol/L (3.5-5.1); TOTAL BILIRUBIN 0.3 mg/dL (0.2-1.0); TOTAL PROTEIN 5.6 g/dL (6.4-8.2)
[2020-05-19] MEDS: LIDOCAINE (700MG/PATCH) PATCH. TD SCH ×2 (09:00→10:38)
[2020-05-19] MEDS: DICLOFENAC SODIUM 1% TOPICAL GEL 100GM TUBE. TP SCH ×3 (09:00→21:00)
[2020-05-19] MEDS: SEVELAMER CARBONATE 800 MG TABLET. PO SCH ×3 (10:36→21:44)
[2020-05-19] MEDS: DOCUSATE SODIUM 100 MG CAPSULE. PO SCH (10:36)
[2020-05-19] MEDS: DIVALPROEX DELAYED RELEASE 500 MG TABLET.DR. PO SCH ×2 (10:36→21:49)
[2020-05-19] MEDS: FOLIC/VIT B COMP W-C (RENAL) TABLET. PO SCH (10:36)
[2020-05-19] MEDS: PANTOPRAZOLE 40 MG TABLET.DR. PO SCH (10:37)
[2020-05-19] MEDS: CITALOPRAM 20 MG TABLET. PO SCH (10:37)
[2020-05-19] MEDS: ASPIRIN CHEWABLE 81 MG TABLET. PO SCH (10:37)
[2020-05-19 11:00] VITALS: BP 163/74
--- NOTE | 2020-05-19 11:00 | EKG ---
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
[2020-05-19] MEDS: CARVEDILOL 12.5 MG TABLET. PO SCH ×2 (11:02→21:36)
[2020-05-19] MEDS: LISINOPRIL 20 MG TABLET PO SCH (11:03)
[2020-05-19] MEDS: hydrALAZINE 25 MG TABLET PO SCH ×2 (11:04→21:37)
[2020-05-19] MEDS: amLODIPine BESYLATE 10 MG TABLET PO SCH (11:04)
--- NOTE | 2020-05-19 11:38 | PDOC ---
PROGRESS NOTES Chief Complaint Chief Complaint A/P: Acute encephalopathy - likely multifactorial, possibly from depakote [place] - will have PT to assess gait, balance. Diabetes, II--insulin dependent - will cont 42u glargine and sliding scale CAD s/p CABG. Cath 2016 with patent grafts HTN - will cont meds BP disorder - on seroquel Seizures - on depakote Acute on chronic diastolic CHF; Echo 07/19 with preserved LV systolic function - will diurese, still makes some urine, likely gained weight 2/2 starting PD, will need UF Hyperlipidemia - cont statin ESRD on HD - transitioning to PD, will consult nephrology Weight gain - dry weight previously 110kg, now 114kg, possibly related to new PD status, will consult nephrology for further recs. IV fentanyl abuse - counseled on opioid cessation, offered methadone or Suboxone therapy History of Present Illness History of Present Illness Mr Bedolla 54 yo M w/ PMHx smoker, CAD, ischemic CM, ESRD on HD, BP disorder, seizure disorder, DM2, HTN who presents with confusion to ED via EMS accompanied by his . He is s/p PD cath placement 04/04/2020 with no signs of peritonitis. Negative COVID-19 on March 12, 2020. Denies fever, vomiting, diarrhea, dizziness, syncope, headache, vision changes, focal weakness, numbness or tingling and no recent travel or sick contacts. He relates to me he was on hospice until 4 months ago. Weight up 4kg from dry weight of 110kg. He has fallen twice at home. Temp 100.5F in ED on 05/18/2020. UDS negative He is still very confused. No bowel movement as of yet. Some abdominal pain. He tearfully relates to me that he has been injecting of 150 mcg daily of IV fentanyl into his left dialysis fistula with insulin needles. He tells me that his has been providing this to him. Plan: Check ammonia and depakote level Substance abuse counseling - I have offered outpatient suboxone therapy. Consult psychiatry and PAT team Vitals Vitals Vital Signs Date Time Temp Pulse Resp B/P (MAP) Pulse Ox O2 Delivery O2 Flow Rate FiO2 05/19/20 11:04 77 153/69 05/19/20 07:00 97.5 19 93 Room Air 97.5 Physical Exam General: Cooperative, No acute distress Lungs: Clear Abdomen: Soft Skin: No breakdown Labs LABS Laboratory Tests Test 05/18/20 15:57 05/18/20 20:27 05/19/20 07:25 05/19/20 08:11 Glucose (Fingerstick) 84 mg/dL (70-99) 109 mg/dL (70-99) 141 mg/dL (70-99) White Blood Count 6.2 x10^3/uL (4.0-11.0) Red Blood Count 2.79 x10^6/uL (4.30-5.70) Hemoglobin 8.9 g/dL (13.0-17.5) Hematocrit 26.1 % (39.0-53.0) Mean Corpuscular Volume 94 fL (79-100) Mean Corpuscular Hemoglobin 32 pg (25-35) Mean Corpuscular Hemoglobin Concent 34 g/dL (31-37) Red Cell Distribution Width 13.0 % (11.5-14.5) Platelet Count 134 x10^3/uL (140-400) Neutrophils (%) (Auto) 61 % (31-73) Lymphocytes (%) (Auto) 22 % (24-48) Monocytes (%) (Auto) 14 % (0-9) Eosinophils (%) (Auto) 3 % (0-3) Basophils (%) (Auto) 1 % (0-3) Neutrophils # (Auto) 3.8 x10^3/uL (1.8-7.7) Lymphocytes # (Auto) 1.3 x10^3/uL (1.0-4.8) Monocytes # (Auto) 0.9 x10^3/uL (0.0-1.1) Eosinophils # (Auto) 0.2 x10^3/uL (0.0-0.7) Basophils # (Auto) 0.0 x10^3/uL (0.0-0.2) Sodium Level 136 mmol/L (136-145) Potassium Level 4.8 mmol/L (3.5-5.1) Chloride Level 100 mmol/L (98-107) Carbon Dioxide Level 25 mmol/L (21-32) Anion Gap 11 (6-14) Blood Urea Nitrogen 84 mg/dL (8-26) Creatinine 8.3 mg/dL (0.7-1.3) Estimated GFR (Cockcroft-Gault) 6.8 BUN/Creatinine Ratio 10 (6-20) Glucose Level 155 mg/dL (70-99) Calcium Level 7.9 mg/dL (8.5-10.1) Total Bilirubin 0.3 mg/dL (0.2-1.0) Aspartate Amino Transf (AST/SGOT) 26 U/L (15-37) Alanine Aminotransferase (ALT/SGPT) 27 U/L (16-63) Alkaline Phosphatase 161 U/L (46-116) Total Protein 5.6 g/dL (6.4-8.2) Albumin 2.2 g/dL (3.4-5.0) Albumin/Globulin Ratio 0.6 (1.0-1.7) Assessment and Plan Assessmemt and Plan Problems Medical Problems: (1) Fever Status: Acute (2) Person under investigation for COVID-19 Status: Acute Comment Review of Relevant I have reviewed the following items nelda (where applicable) has been applied. Labs Laboratory Tests Test 05/18/20 02:35 05/18/20 02:45 05/18/20 02:50 05/18/20 04:40 Urine Collection Type Unknown Urine Color Yellow Urine Clarity Clear Urine pH 6.5 (<5.0-8.0) Urine Specific [place] 1.015 (1.000-1.030) Urine Protein >=300 mg/dL (NEG-TRACE) Urine Glucose (UA) 250 mg/dL (NEG) Urine Ketones (Stick) Negative mg/dL (NEG) Urine Blood Negative (NEG) Urine Nitrite Negative (NEG) Urine Bilirubin Negative (NEG) Urine Urobilinogen Dipstick 0.2 mg/dL (0.2 mg/dL) Urine Leukocyte Esterase Negative (NEG) Urine RBC 1-2 /HPF (0-2) Urine WBC 1-4 /HPF (0-4) Urine Squamous Epithelial Cells Few /LPF Urine Bacteria Few /HPF (0-FEW) Urine Opiates Screen Neg (NEG) Urine Methadone Screen Neg (NEG) Urine Barbiturates Neg (NEG) Urine Phencyclidine Screen Neg (NEG) Urine Amphetamine/Methamphetamine Neg (NEG) Urine Benzodiazepines Screen Neg (NEG) Urine Cocaine Screen Neg (NEG) Urine Cannabinoids Screen Neg (NEG) Urine Ethyl Alcohol Neg (NEG) O2 Saturation 93 % (92-99) Arterial Blood pH 7.44 (7.35-7.45) Arterial Blood pH (Temp corrected) 7.42 Arterial Blood pCO2 at Patient Temp 36 mmHg (35-46) Arterial Blood pCO2 (Temp correct) 38 mmHg Arterial Blood pO2 at Patient Temp 69 mmHg (75-108) Arterial Blood pO2 (Temp corrected) 74 mmHg Arterial Blood HCO3 24 mmol/L (21-28) Arterial Blood Base Excess 0 mmol/L (-3-3) Oxyhemoglobin 92.1 % Methemoglobin 0.4 % (0.0-1.9) Carbon Monoxide, Quantitative 0.0 % (0.0-1.9) Glucose (Fingerstick) 109 mg/dL (70-99) White Blood Count 8.0 x10^3/uL (4.0-11.0) Red Blood Count 3.22 x10^6/uL (4.30-5.70) Hemoglobin 10.2 g/dL (13.0-17.5) Hematocrit 30.3 % (39.0-53.0) Mean Corpuscular Volume 94 fL (79-100) Mean Corpuscular Hemoglobin 32 pg (25-35) Mean Corpuscular Hemoglobin Concent 34 g/dL (31-37) Red Cell Distribution Width 13.2 % (11.5-14.5) Platelet Count 166 x10^3/uL (140-400) Neutrophils (%) (Auto) 67 % (31-73) Lymphocytes (%) (Auto) 19 % (24-48) Monocytes (%) (Auto) 13 % (0-9) Eosinophils (%) (Auto) 1 % (0-3) Basophils (%) (Auto) 1 % (0-3) Neutrophils # (Auto) 5.3 x10^3/uL (1.8-7.7) Lymphocytes # (Auto) 1.5 x10^3/uL (1.0-4.8) Monocytes # (Auto) 1.0 x10^3/uL (0.0-1.1) Eosinophils # (Auto) 0.1 x10^3/uL (0.0-0.7) Basophils # (Auto) 0.0 x10^3/uL (0.0-0.2) Prothrombin Time 12.3 SEC (11.7-14.0) Prothromb Time International Ratio 1.0 (0.8-1.1) Sodium Level 135 mmol/L (136-145) Potassium Level 4.3 mmol/L (3.5-5.1) Chloride Level 98 mmol/L (98-107) Carbon Dioxide Level 28 mmol/L (21-32) Anion Gap 9 (6-14) Blood Urea Nitrogen 78 mg/dL (8-26) Creatinine 7.4 mg/dL (0.7-1.3) Estimated GFR (Cockcroft-Gault) 7.8 BUN/Creatinine Ratio 11 (6-20) Glucose Level 103 mg/dL (70-99) Lactic Acid Level 0.9 mmol/L (0.4-2.0) Calcium Level 8.2 mg/dL (8.5-10.1) Magnesium Level 1.9 mg/dL (1.8-2.4) Total Bilirubin 0.3 mg/dL (0.2-1.0) Aspartate Amino Transf (AST/SGOT) 34 U/L (15-37) Alanine Aminotransferase (ALT/SGPT) 46 U/L (16-63) Alkaline Phosphatase 185 U/L (46-116) Creatine Kinase 60 U/L (39-308) Troponin I Quantitative 0.058 ng/mL (0.000-0.055) KC-Gxf-P-Type Natriuretic Peptide 46547 pg/mL (0-124) Total Protein 6.3 g/dL (6.4-8.2) Albumin 2.6 g/dL (3.4-5.0) Albumin/Globulin Ratio 0.7 (1.0-1.7) Procalcitonin 0.32 ng/mL (0.00-0.10) Ethyl Alcohol Level < 10 mg/dL (0-10) Test 05/18/20 10:20 05/18/20 10:56 05/18/20 15:57 05/18/20 20:27 Troponin I Quantitative 0.057 ng/mL (0.000-0.055) Glucose (Fingerstick) 73 mg/dL (70-99) 84 mg/dL (70-99) 109 mg/dL (70-99) Test 05/19/20 07:25 05/19/20 08:11 White Blood Count 6.2 x10^3/uL (4.0-11.0) Red Blood Count 2.79 x10^6/uL (4.30-5.70) Hemoglobin 8.9 g/dL (13.0-17.5) Hematocrit 26.1 % (39.0-53.0) Mean Corpuscular Volume 94 fL (79-100) Mean Corpuscular Hemoglobin 32 pg (25-35) Mean Corpuscular Hemoglobin Concent 34 g/dL (31-37) Red Cell Distribution Width 13.0 % (11.5-14.5) Platelet Count 134 x10^3/uL (140-400) Neutrophils (%) (Auto) 61 % (31-73) Lymphocytes (%) (Auto) 22 % (24-48) Monocytes (%) (Auto) 14 % (0-9) Eosinophils (%) (Auto) 3 % (0-3) Basophils (%) (Auto) 1 % (0-3) Neutrophils # (Auto) 3.8 x10^3/uL (1.8-7.7) Lymphocytes # (Auto) 1.3 x10^3/uL (1.0-4.8) Monocytes # (Auto) 0.9 x10^3/uL (0.0-1.1) Eosinophils # (Auto) 0.2 x10^3/uL (0.0-0.7) Basophils # (Auto) 0.0 x10^3/uL (0.0-0.2) Sodium Level 136 mmol/L (136-145) Potassium Level 4.8 mmol/L (3.5-5.1) Chloride Level 100 mmol/L (98-107) Carbon Dioxide Level 25 mmol/L (21-32) Anion Gap 11 (6-14) Blood Urea Nitrogen 84 mg/dL (8-26) Creatinine 8.3 mg/dL (0.7-1.3) Estimated GFR (Cockcroft-Gault) 6.8 BUN/Creatinine Ratio 10 (6-20) Glucose Level 155 mg/dL (70-99) Calcium Level 7.9 mg/dL (8.5-10.1) Total Bilirubin 0.3 mg/dL (0.2-1.0) Aspartate Amino Transf (AST/SGOT) 26 U/L (15-37) Alanine Aminotransferase (ALT/SGPT) 27 U/L (16-63) Alkaline Phosphatase 161 U/L (46-116) Total Protein 5.6 g/dL (6.4-8.2) Albumin 2.2 g/dL (3.4-5.0) Albumin/Globulin Ratio 0.6 (1.0-1.7) Glucose (Fingerstick) 141 mg/dL (70-99) Laboratory Tests Test 05/18/20 15:57 05/18/20 20:27 05/19/20 07:25 05/19/20 08:11 Glucose (Fingerstick) 84 mg/dL (70-99) 109 mg/dL (70-99) 141 mg/dL (70-99) White Blood Count 6.2 x10^3/uL (4.0-11.0) Red Blood Count 2.79 x10^6/uL (4.30-5.70) Hemoglobin 8.9 g/dL (13.0-17.5) Hematocrit 26.1 % (39.0-53.0) Mean Corpuscular Volume 94 fL (79-100) Mean Corpuscular Hemoglobin 32 pg (25-35) Mean Corpuscular Hemoglobin Concent 34 g/dL (31-37) Red Cell Distribution Width 13.0 % (11.5-14.5) Platelet Count 134 x10^3/uL (140-400) Neutrophils (%) (Auto) 61 % (31-73) Lymphocytes (%) (Auto) 22 % (24-48) Monocytes (%) (Auto) 14 % (0-9) Eosinophils (%) (Auto) 3 % (0-3) Basophils (%) (Auto) 1 % (0-3) Neutrophils # (Auto) 3.8 x10^3/uL (1.8-7.7) Lymphocytes # (Auto) 1.3 x10^3/uL (1.0-4.8) Monocytes # (Auto) 0.9 x10^3/uL (0.0-1.1) Eosinophils # (Auto) 0.2 x10^3/uL (0.0-0.7) Basophils # (Auto) 0.0 x10^3/uL (0.0-0.2) Sodium Level 136 mmol/L (136-145) Potassium Level 4.8 mmol/L (3.5-5.1) Chloride Level 100 mmol/L (98-107) Carbon Dioxide Level 25 mmol/L (21-32) Anion Gap 11 (6-14) Blood Urea Nitrogen 84 mg/dL (8-26) Creatinine 8.3 mg/dL (0.7-1.3) Estimated GFR (Cockcroft-Gault) 6.8 BUN/Creatinine Ratio 10 (6-20) Glucose Level 155 mg/dL (70-99) Calcium Level 7.9 mg/dL (8.5-10.1) Total Bilirubin 0.3 mg/dL (0.2-1.0) Aspartate Amino Transf (AST/SGOT) 26 U/L (15-37) Alanine Aminotransferase (ALT/SGPT) 27 U/L (16-63) Alkaline Phosphatase 161 U/L (46-116) Total Protein 5.6 g/dL (6.4-8.2) Albumin 2.2 g/dL (3.4-5.0) Albumin/Globulin Ratio 0.6 (1.0-1.7) Microbiology 05/18/20 Blood Culture - Preliminary, Resulted NO GROWTH AFTER 1 DAY Medications Current Medications Piperacillin Sod/ Tazobactam Sod (Zosyn Per Pharmacy) 1 each PRN DAILY PRN MC SEE COMMENTS; Start 05/18/20 at 02:45 Piperacillin Sod/ Tazobactam Sod 2.25 gm/Sodium Chloride 50 ml @ 100 mls/hr Q8HRS IV Last administered on 05/19/20at 05:50; Start 05/18/20 at 04:00 Vancomycin HCl (Vanco Per Pharmacy) 1 each PRN DAILY PRN MC SEE COMMENTS Last administered on 05/18/20at 09:16; Start 05/18/20 at 04:15 Acetaminophen (Tylenol) 650 mg PRN Q4HRS PRN PO FEVER > 100.3'F; Start 05/18/20 at 04:15; Stop 05/18/20 at 16:41; Status DC Vancomycin HCl 2 gm/Sodium Chloride 500 ml @ 250 mls/hr 1X ONCE IV Last a dministered on 05/18/20at 05:03; Start 05/18/20 at 05:00; Stop 05/18/20 at 06:59; Status DC Aspirin (Aspirin Chewable) 324 mg 1X ONCE PO Last administered on 05/18/20at 15:36; Start 05/18/20 at 06:00; Stop 05/18/20 at 06:01; Status DC Vancomycin HCl (Vancomycin Random Level) 1 each 1X ONCE MC ; Start 05/20/20 at 06:00; Stop 05/20/20 at 06:01 Amlodipine Besylate (Norvasc) 10 mg DAILY PO Last administered on 05/19/20 11:04; Start 05/18/20 at 17:00 Aspirin (Aspirin Chewable) 81 mg DAILY PO Last administered on 05/19/20 10:37; Start 05/19/20 at 09:00 Divalproex Sodium (Depakote) 1,000 mg BID PO Last administered on 05/19/20 10: 36; Start 05/18/20 at 21:00 Docusate Sodium (Colace) 100 mg DAILY PO Last administered on 05/19/20 10:36; Start 05/19/20 at 09:00 Vitamin B Complex/ Vitamin C (Gissel-Irvin) 1 tab DAILY PO Last administered on 05/19/20 10:36; Start 05/19/20 at 09:00 Hydralazine HCl (Apresoline) 25 mg BID PO Last administered on 05/19/20 11:04; Start 05/18/20 at 21:00 Lisinopril (Prinivil) 20 mg DAILY PO Last administered on 05/19/20 11:03; Start 05/19/20 at 09:00 Ranolazine (Ranexa) 500 mg BID PO Last administered on 05/18/20 20:30; Start 05/18/20 at 21:00 Sevelamer Carbonate (Renvela) 800 mg TIDWMEALS PO Last administered on 05/19/20 10:36; Start 05/18/20 at 17:00 Carvedilol (Coreg) 12.5 mg BIDWMEALS PO Last administered on 05/19/20 11:02; Start 05/18/20 at 17:00 Citalopram Hydrobromide (CeleXA) 40 mg DAILY PO Last administered on 05/19/20 10:37; Start 05/19/20 at 09:00 Pantoprazole Sodium (Protonix) 40 mg DAILYAC PO Last administered on 7/20/20at 10:37; Start 05/18/20 at 16:30 Diclofenac Sodium (Voltaren) 1 christo BID TP ; Start 05/18/20 at 21:00 Insulin Human Lispro (HumaLOG) 0-5 UNITS TIDWMEALS SQ ; Start 05/18/20 at 17:00 Dextrose (Dextrose 50%-Water Syringe) 12.5 gm PRN Q15MIN PRN IV SEE COMMENTS; Start 05/18/20 at 16:30 Hydralazine HCl (Apresoline Inj) 10 mg PRN Q4HRS PRN IVP ELEVATED BP, SEE COMMENTS; Start 05/18/20 at 16:30 Sodium Chloride (Normal Saline Flush) 3 ml QSHIFT PRN IV AFTER MEDS AND BLOOD DRAWS; Start 05/18/20 at 16:30 Ondansetron HCl (Zofran) 4 mg PRN Q4HRS PRN IV NAUSEA/VOMITING; Start 05/18/20 at 16:30 Acetaminophen (Tylenol) 650 mg PRN Q4HRS PRN PO TEMP OVER 100.4F OR MILD PAIN; Start 05/18/20 at 16:30 Acetaminophen (Tylenol Supp) 650 mg PRN Q4HRS PRN DE TEMP OVER 100.4F OR MILD PAIN; Start 05/18/20 at 16:30 Docusate Sodium (Colace) 100 mg PRN BID PRN PO HARD STOOLS; Start 05/18/20 at 16:30 Albuterol Sulfate (Ventolin Neb Soln) 2.5 mg PRN Q4HRS PRN NEB SHORTNESS OF BREATH; Start 05/18/20 at 16:30 Guaifenesin (Robitussin) 200 mg PRN Q4HRS PRN PO COUGH; Start 05/18/20 at 16:30 Lorazepam (Ativan) 0.5 mg PRN Q4HRS PRN PO ANXIETY / AGITATION; Start 05/18/20 at 16:30 Vancomycin HCl (Vanco Per Pharmacy) 1 each PRN DAILY PRN MC SEE COMMENTS; Start 05/18/20 at 16:30; Stop 05/18/20 at 16:37; Status DC Lidocaine (Lidoderm) 1 patch DAILY TD ; Start 05/19/20 at 09:00 Miscellaneous (Lidoderm Patch Removal) 1 ea QHS MC ; Start 05/19/20 at 21:00 Active Scripts Active Ondansetron Odt (Ondansetron) 4 Mg Tab.rapdis 1 Tab PO PRN Q6-8HRS PRN [Diclofenac Sodium] 100 GM Gel..gram. 1 Christo TP BID 30 Days Reported Ranexa (Ranolazine) 500 Mg Tab.er.12h 500 Mg PO BID Percocet 7.5-325 Mg Tablet (Oxycodone/Acetaminophen) 1 Each Tablet 1 Tab PO PRN Q6HRS PRN Renal-Irvin Tablet (Folic Acid/Vit Bcomp,C) 0.8 Mg Tablet 0.8 Mg PO DAILY Novolog (Insulin Aspart) 100 Unit/1 Ml Vial 0 SQ PRN TID PRN Ibuprofen 600 Mg Tablet 600 Mg PO PRN Q12HR PRN Diphenhydramine Hcl 25 Mg Tablet 25 Mg PO QHS Furosemide 80 Mg Tablet 120 Mg PO BID Tresiba (Insulin Degludec) 100 Unit/1 Ml Vial 42 Unit SQ DAILY Ativan (Lorazepam) 1 Mg Tablet 0.5 Mg PO Q4HRS Buspirone Hcl 5 Mg Tablet 5 Mg PO BID Lisinopril 20 Mg Tablet 20 Mg PO DAILY Zofran (Ondansetron Hcl) 4 Mg Tablet 1 Tab PO PRN Q4HRS PRN NITROGLYCERIN SubLingual (Nitroglycerin) 0.4 Mg Tab.subl 0.4 Mg SL PRN Q5MIN PRN Hydralazine Hcl 25 Mg Tablet 1 Tab PO BID Gabapentin 400 Mg Capsule 400 Mg PO BID Citalopram Hbr (Citalopram Hydrobromide) 40 Mg Tablet 40 Mg PO HS Cyclobenzaprine Hcl 10 Mg Tablet 1 Tab PO TID PRN PRN Seroquel (Quetiapine Fumarate) 100 Mg Tablet 1 Tab PO QHS Protonix (Pantoprazole Sodium) 20 Mg Tablet.dr 40 Mg PO DAILY Docusate Sodium 100 Mg Capsule 1 Cap PO DAILY Divalproex Sodium 500 Mg Tablet.dr 2 Tab PO BID Aspirin 81 Mg Tab.chew 1 Tab PO DAILY Amitiza (Lubiprostone) 24 Mcg Capsule 1 Cap PO DAILY Norvasc (Amlodipine Besylate) 10 Mg Tablet 10 Mg PO DAILY Coreg (Carvedilol) 25 Mg Tablet 12.5 Mg PO BIDWMEALS Metolazone 5 Mg Tablet 5 Mg PO DAILY Renvela (Sevelamer Carbonate) 800 Mg Tablet 800 Mg PO TIDWMEALS Trazodone Hcl 300 Mg Tablet 150 Mg PO HS Vitals/I & O Vital Sign - Last 24 Hours 05/18/20 05/18/20 05/18/20 05/18/20 15:00 17:07 17:07 19:00 Temp 98.1 98.3 98.1 98.3 Pulse 74 74 Resp 18 20 B/P (MAP) 131/61 (84) 173/79 173/79 150/71 (97) Pulse Ox 96 96 O2 Delivery Room Air Room Air 05/18/20 05/18/20 05/18/20 05/18/20 19:24 20:30 20:30 22:44 Temp 97.0 97.0 Pulse 75 75 83 Resp 18 B/P (MAP) 150/75 150/71 155/61 (92) Pulse Ox 95 O2 Delivery Room Air Room Air 05/19/20 05/19/20 05/19/20 05/19/20 02:21 07:00 11:02 11:03 Temp 97.5 97.5 97.5 97.5 Pulse 78 77 77 77 Resp 18 19 B/P (MAP) 154/72 (99) 152/66 (94) 153/69 153/69 Pulse Ox 96 93 O2 Delivery Room Air Room Air 05/19/20 05/19/20 11:04 11:04 Pulse 77 77 B/P (MAP) 153/69 153/69 Intake and Output 05/18/20 05/18/20 05/19/20 15:00 23:00 07:00 Intake Total 500 ml 290 ml Output Total 275 ml Balance 500 ml 290 ml -275 ml Justicifation of Admission Dx: Justifications for Admission: Justification of Admission Dx: Yes Altered Mental Status: Altered Mental Status GALI ROMERO MD May 19, 2020 11:38
[2020-05-19] MEDS: RANOLAZINE 500 MG TAB.ER.12H PO SCH ×2 (11:54→21:36)
--- NOTE | 2020-05-19 12:37 | NUR ---
SW following. Reviewed chart and spoke with RN and Dr. Yoder. Pt from home with [facility] , . SW contacted by RN with [facility] and they will not take pt back at discharge per non-compliance. Spoke with Roula who stated she provides 24 hour care to pt in the home and will follow up with [facility] and get back to this SW. Pt was apparently on hospice prior to transitioning to with [facility]. Pt on room air. Pt on IV Vancomycin and Zosyn. Pt does out-patient dialysis at [facility], , (fax). Pt reported to RN and Dr. Yoder that he is injecting Fentanyl through his fistula. ANA completed [facility] referral per approval from Dr. Yoder. ANA coordinated care with Ralph from [facility]. PT/PT has been ordered. SW to continue following for discharge planning. Addendum: 05/19/20 at 1255 by ROCIO PEREZ Phone call from who stated she would like [facility] , , (fax) for pt at discharge since [facility] is not taking pt back at discharge. Referral completed. Patient choice of vendor form completed. Addendum: 05/19/20 at 1349 by ROCIO PEREZ Spoke with Ralph from [facility] who stated pt has been referred to [facility] for out-patient treatment as pt reported to Ralph that he is buying injectable Fentanyl of the streets and that his does not know about it. Ralph stated pt denied SI but is interested in medication for depression. Spoke with Dr. Yoder about a referral to Dr. Carter with psychiatry. Addendum: 05/19/20 at 1512 by ROCIO PEREZ Phone call from stating she spoke with the [facility] and they have agreed to take pt back one more time. ANA called the [facility] who confirmed they will take pt for HH on discharge. Discharge plan is home with and HH from [facility] and out-patient substance abuse treatment from [facility].
--- NOTE | 2020-05-19 12:53 | PDOC ---
Infectious Disease Note Vital Signs: Vital Signs Vital Signs Date Time Temp Pulse Resp B/P (MAP) Pulse Ox O2 Delivery O2 Flow Rate FiO2 05/19/20 11:54 77 153/69 05/19/20 07:00 97.5 19 93 Room Air 97.5 Medications: Inpatient Meds: Current Medications Medications (Trade) Dose Ordered Sig/Brittani Start Time Stop Time Status Last Admin Dose Admin Acetaminophen (Tylenol Supp) 650 mg PRN Q4HRS PRN 05/18/20 16:30 Acetaminophen (Tylenol) 650 mg PRN Q4HRS PRN 05/18/20 16:30 Albuterol Sulfate (Ventolin Neb Soln) 2.5 mg PRN Q4HRS PRN 05/18/20 16:30 Amlodipine Besylate (Norvasc) 10 mg DAILY 05/18/20 17:00 05/19/20 11:04 10 MG Aspirin (Aspirin Chewable) 81 mg DAILY 05/19/20 09:00 05/19/20 10:37 81 MG Carvedilol (Coreg) 12.5 mg BIDWMEALS 05/18/20 17:00 05/19/20 11:02 12.5 MG Citalopram Hydrobromide (CeleXA) 40 mg DAILY 05/19/20 09:00 05/19/20 10:37 40 MG Dextrose (Dextrose 50%-Water Syringe) 12.5 gm PRN Q15MIN PRN 05/18/20 16:30 Diclofenac Sodium (Voltaren) 1 jv BID 05/18/20 21:00 Divalproex Sodium (Depakote) 1,000 mg BID 05/18/20 21:00 05/19/20 10:36 1,000 MG Docusate Sodium (Colace) 100 mg PRN BID PRN 05/18/20 16:30 Guaifenesin (Robitussin) 200 mg PRN Q4HRS PRN 05/18/20 16:30 Hydralazine HCl (Apresoline Inj) 10 mg PRN Q4HRS PRN 05/18/20 16:30 Hydralazine HCl (Apresoline) 25 mg BID 05/18/20 21:00 05/19/20 11:04 25 MG Insulin Human Lispro (HumaLOG) 0-5 UNITS TIDWMEALS 05/18/20 17:00 05/19/20 12:19 2 UNITS Lidocaine (Lidoderm) 1 patch DAILY 05/19/20 09:00 Lisinopril (Prinivil) 20 mg DAILY 05/19/20 09:00 05/19/20 11:03 20 MG Lorazepam (Ativan) 0.5 mg PRN Q4HRS PRN 05/18/20 16:30 Miscellaneous (Lidoderm Patch Removal) 1 ea QHS 05/19/20 21:00 Ondansetron HCl (Zofran) 4 mg PRN Q4HRS PRN 05/18/20 16:30 Pantoprazole Sodium (Protonix) 40 mg DAILYAC 05/18/20 16:30 05/19/20 10:37 40 MG Piperacillin Sod/ Tazobactam Sod (Zosyn Per Pharmacy) 1 each PRN DAILY PRN 05/18/20 02:45 Piperacillin Sod/ Tazobactam Sod 2.25 gm/Sodium Chloride 50 ml @ 100 mls/hr Q8HRS 05/18/20 04:00 05/19/20 05:50 100 MLS/HR Ranolazine (Ranexa) 500 mg BID 05/18/20 21:00 05/19/20 11:54 500 MG Sevelamer Carbonate (Renvela) 800 mg TIDWMEALS 05/18/20 17:00 05/19/20 10:36 800 MG Sodium Chloride (Normal Saline Flush) 3 ml QSHIFT PRN 05/18/20 16:30 Vancomycin HCl (Vanco Per Pharmacy) 1 each PRN DAILY PRN 05/18/20 16:30 05/18/20 16:37 DC Vancomycin HCl (Vancomycin Random Level) 1 each 1X ONCE 05/20/20 06:00 05/20/20 06:01 Vancomycin HCl 2 gm/Sodium Chloride 500 ml @ 250 mls/hr 1X ONCE 05/18/20 05:00 05/18/20 06:59 DC 05/18/20 05:03 250 MLS/HR Vitamin B Complex/ Vitamin C (Gissel-Irvin) 1 tab DAILY 05/19/20 09:00 05/19/20 10:36 1 TAB Labs: Lab Laboratory Tests Test 05/18/20 15:57 05/18/20 20:27 05/19/20 07:25 05/19/20 08:11 Glucose (Fingerstick) 84 mg/dL (70-99) 109 mg/dL (70-99) 141 mg/dL (70-99) White Blood Count 6.2 x10^3/uL (4.0-11.0) Red Blood Count 2.79 x10^6/uL (4.30-5.70) Hemoglobin 8.9 g/dL (13.0-17.5) Hematocrit 26.1 % (39.0-53.0) Mean Corpuscular Volume 94 fL (79-100) Mean Corpuscular Hemoglobin 32 pg (25-35) Mean Corpuscular Hemoglobin Concent 34 g/dL (31-37) Red Cell Distribution Width 13.0 % (11.5-14.5) Platelet Count 134 x10^3/uL (140-400) Neutrophils (%) (Auto) 61 % (31-73) Lymphocytes (%) (Auto) 22 % (24-48) Monocytes (%) (Auto) 14 % (0-9) Eosinophils (%) (Auto) 3 % (0-3) Basophils (%) (Auto) 1 % (0-3) Neutrophils # (Auto) 3.8 x10^3/uL (1.8-7.7) Lymphocytes # (Auto) 1.3 x10^3/uL (1.0-4.8) Monocytes # (Auto) 0.9 x10^3/uL (0.0-1.1) Eosinophils # (Auto) 0.2 x10^3/uL (0.0-0.7) Basophils # (Auto) 0.0 x10^3/uL (0.0-0.2) Sodium Level 136 mmol/L (136-145) Potassium Level 4.8 mmol/L (3.5-5.1) Chloride Level 100 mmol/L (98-107) Carbon Dioxide Level 25 mmol/L (21-32) Anion Gap 11 (6-14) Blood Urea Nitrogen 84 mg/dL (8-26) Creatinine 8.3 mg/dL (0.7-1.3) Estimated GFR (Cockcroft-Gault) 6.8 BUN/Creatinine Ratio 10 (6-20) Glucose Level 155 mg/dL (70-99) Calcium Level 7.9 mg/dL (8.5-10.1) Total Bilirubin 0.3 mg/dL (0.2-1.0) Aspartate Amino Transf (AST/SGOT) 26 U/L (15-37) Alanine Aminotransferase (ALT/SGPT) 27 U/L (16-63) Alkaline Phosphatase 161 U/L (46-116) Total Protein 5.6 g/dL (6.4-8.2) Albumin 2.2 g/dL (3.4-5.0) Albumin/Globulin Ratio 0.6 (1.0-1.7) Test 05/19/20 12:00 Glucose (Fingerstick) 186 mg/dL (70-99) Objective: Assessment: Patient seen and examined ID consult dictated Plan: Plan of Care [id number] Thank you LASHAWN URIAS MD May 19, 2020 12:53
--- NOTE | 2020-05-19 13:15 | CONS ---
DATE OF CONSULTATION: 05/19/2020 REFERRING PHYSICIAN: Dr. Armendariz. REASON FOR CONSULTATION: Sepsis. HISTORY OF PRESENT ILLNESS: A 54-year-old male with history of end-stage renal disease, on peritoneal dialysis, which started last Tuesday presented to the ER after becoming confused, history of fall twice. He denied any fever, cough, headache. He was found to have temperature of 100.5. White count was normal. He had a lymphopenia, was started on Zosyn. UA was negative. COVID is pending. Chest x-ray showed no acute cardiopulmonary process. CT cervical spine was normal. CT head was normal for acute process. ID consult has been requested for antibiotic management. Today, the patient states he feels a little better, less dizzy. REVIEW OF SYSTEMS: Denies any headache, sore throat, difficulty swallowing, sinus congestion, runny nose, neck pain, chest pain, cough, shortness of breath, nausea, vomiting, diarrhea, symptoms or rash. PAST MEDICAL HISTORY: Anxiety, coronary artery disease, CHF, diabetes, hyperlipidemia, hypertension, chronic back pain, on PD for end-stage renal disease, was on hemodialysis prior, cholecystectomy, coronary artery bypass graft, hernia surgery. SOCIAL HISTORY: He is a smoker. Occasional ETOH use. Lives with his . FAMILY HISTORY: As per HPI. CURRENT MEDICATIONS: Zosyn. Other medications reviewed in medication list. ALLERGIES: HYDROMORPHONE. PHYSICAL EXAMINATION: VITAL SIGNS: Temperature 97.5, T-max 100.5, pulse 77, respiratory rate 19, blood pressure 153/69, oxygen saturation 98% on room air. GENERAL: Alert and oriented x 3 male, lying in bed comfortably, in no acute distress, nontoxic appearing. HEENT: Normocephalic, atraumatic, anicteric. No thrush. NECK: Supple. LUNGS: Clear bilaterally. No wheezing. HEART: S1, S2. No gallops or murmurs. ABDOMEN: Soft, bowel sounds present. PD catheter in place. No surrounding redness, no tenderness. GENITOURINARY: No Hale. EXTREMITIES: No edema, no cyanosis. DERMATOLOGIC: Warm, dry. No generalized rash. CENTRAL NERVOUS SYSTEM: Alert and awake, moves all 4 extremities. Answers questions appropriately, little slow. LABORATORY DATA: WBC 6.2, hemoglobin 8.9, hematocrit 26.1, platelets 134. Hemoglobin was 10.2 on admission. Sodium 136, potassium 4.8, chloride 100, bicarbonate 25, BUN 84, creatinine 8.3, glucose 155. MICROBIOLOGY: Blood culture pending at this time. DIAGNOSTICS: Head, cervical spine CT as above. Chest x-ray as above. IMPRESSION: 1. Febrile illness. 2. Suspect COVID. 3. End-stage renal disease, on peritoneal dialysis, was on hemodialysis prior. 4. History of fall prior to admission. 5. Diabetes and hypertension. 6. Encephalopathy, likely metabolic. RECOMMENDATIONS: 1. Continue empiric Zosyn for now, will deescalate soon. 2. Follow up COVID. 3. Maintain aspiration precaution until COVID resulted. 4. Follow up cultures and lab. 5. Continue supportive care. Thank you for allowing me to participate in this patient's care. If you have any questions, do not hesitate to contact us. LASHAWN URIAS MD DR: [email or web address] JOB#: [id number] / [id number] FANTA
[2020-05-19] MEDS: LORazepam 0.5 MG TABLET PO PRN ×2 (13:48→22:35)
[2020-05-19] MEDS: ACETAMINOPHEN 325 MG TABLET. PO PRN ×2 (13:49→22:35)
[2020-05-19 15:00] VITALS: BP 145/67
[2020-05-19] MEDS ORDERED: IV NORMAL SALINE 1000ML BAG 1,000 ML IV PRN ×2 (15:22)
[2020-05-19] MEDS ORDERED: DIALYSIS PATIENT. MC PRN (15:30)
--- NOTE | 2020-05-19 15:31 | PDOC ---
Renal-Progress Notes Subjective Notes Notes NO COMPLAINTS History of Present Illness Hx of present illness STABLE Vitals Vitals Vital Signs Date Time Temp Pulse Resp B/P (MAP) Pulse Ox O2 Delivery O2 Flow Rate FiO2 05/19/20 11:54 77 153/69 05/19/20 07:00 97.5 19 93 Room Air 97.5 Weight Weight [ ] I.O. Intake and Output Intake and Output 05/19/20 07:00 Intake Total 790 ml Output Total 275 ml Balance 515 ml Intake Oral 240 ml IV Total 550 ml Output Urine Total 275 ml # Bowel Movements 1 Labs Labs Laboratory Tests Test 05/18/20 15:57 05/18/20 20:27 05/19/20 07:25 05/19/20 08:11 Glucose (Fingerstick) 84 mg/dL (70-99) 109 mg/dL (70-99) 141 mg/dL (70-99) White Blood Count 6.2 x10^3/uL (4.0-11.0) Red Blood Count 2.79 x10^6/uL (4.30-5.70) Hemoglobin 8.9 g/dL (13.0-17.5) Hematocrit 26.1 % (39.0-53.0) Mean Corpuscular Volume 94 fL (79-100) Mean Corpuscular Hemoglobin 32 pg (25-35) Mean Corpuscular Hemoglobin Concent 34 g/dL (31-37) Red Cell Distribution Width 13.0 % (11.5-14.5) Platelet Count 134 x10^3/uL (140-400) Neutrophils (%) (Auto) 61 % (31-73) Lymphocytes (%) (Auto) 22 % (24-48) Monocytes (%) (Auto) 14 % (0-9) Eosinophils (%) (Auto) 3 % (0-3) Basophils (%) (Auto) 1 % (0-3) Neutrophils # (Auto) 3.8 x10^3/uL (1.8-7.7) Lymphocytes # (Auto) 1.3 x10^3/uL (1.0-4.8) Monocytes # (Auto) 0.9 x10^3/uL (0.0-1.1) Eosinophils # (Auto) 0.2 x10^3/uL (0.0-0.7) Basophils # (Auto) 0.0 x10^3/uL (0.0-0.2) Sodium Level 136 mmol/L (136-145) Potassium Level 4.8 mmol/L (3.5-5.1) Chloride Level 100 mmol/L (98-107) Carbon Dioxide Level 25 mmol/L (21-32) Anion Gap 11 (6-14) Blood Urea Nitrogen 84 mg/dL (8-26) Creatinine 8.3 mg/dL (0.7-1.3) Estimated GFR (Cockcroft-Gault) 6.8 BUN/Creatinine Ratio 10 (6-20) Glucose Level 155 mg/dL (70-99) Calcium Level 7.9 mg/dL (8.5-10.1) Total Bilirubin 0.3 mg/dL (0.2-1.0) Aspartate Amino Transf (AST/SGOT) 26 U/L (15-37) Alanine Aminotransferase (ALT/SGPT) 27 U/L (16-63) Alkaline Phosphatase 161 U/L (46-116) Total Protein 5.6 g/dL (6.4-8.2) Albumin 2.2 g/dL (3.4-5.0) Albumin/Globulin Ratio 0.6 (1.0-1.7) Test 05/19/20 12:00 Glucose (Fingerstick) 186 mg/dL (70-99) Micro Micro Microbiology 05/18/20 Blood Culture - Preliminary, Resulted NO GROWTH AFTER 1 DAY Review of Systems Constitutional: yes: other (CONFUSED) Physical Exam General Appearance: no apparent distress Skin: warm Respiratory: bilateral CTA Heart: S1S2 Abdomen: soft, bowel sounds present, no rebound, no guarding, distension Genitourinary: bladder flat Extremities: pulses present Neurology: alert, confused Assessment Assessment IMP ESRD ANEMIA NON COMPLIANCE DM II HTN FEVER ENCEPHALOPATHY PLAN RULE OUT COVID 19 ANTIBIOTICS HD TODAY UF TO DW TRANSITION BACK TO PD ONCE MORE STABLE BO DOHERTY MD May 19, 2020 15:31
[2020-05-19] MEDS: VANCOMYCIN PER PHARMACY MC PRN (17:01)
[2020-05-19 18:34] LABS: VAL ACID 41 mcg/mL (50-100)
[2020-05-19 19:05] VITALS: BP 169/89
[2020-05-19] MEDS: PATCH REMOVAL. MC SCH (21:00)
[2020-05-19] MEDS: LACTOBACILLUS RHAMNOSUS GG 1 CAPSULE. PO SCH (21:36)
--- NOTE | 2020-05-19 21:40 | NUR ---
1700 meds not given as patient was in HD.
[2020-05-19] MEDS: ONDANSETRON PF 4 MG/2 ML VIAL. IV PRN (23:06)
[2020-05-19 23:45] VITALS: BP 153/53
--- NOTE | 2020-05-20 00:43 | NUR ---
Patient keeps taking off his tele monitor.
[2020-05-20] MEDS: ACETAMINOPHEN 325 MG TABLET. PO PRN (02:56)
[2020-05-20] MEDS: LORazepam 0.5 MG TABLET PO PRN (02:56)
[2020-05-20 03:05] VITALS: BP 154/64
[2020-05-20 04:42] LABS: CALCIUM 8.1 mg/dL (8.5-10.1); CREATININE 5.4 mg/dL (0.7-1.3); GFR 11.2; POTASSIUM 4.1 mmol/L (3.5-5.1)
[2020-05-20] MEDS: PIPERACILLIN/TAZOBACTAM 2.25 GM in IV NORMAL SALINE 50ML 50 ML IV SCH ×3 (05:04→22:21)
[2020-05-20] MEDS ORDERED: VANCOMYCIN RANDOM LEVEL. MC ONE (06:00)
[2020-05-20 07:22] VITALS: BP 178/65
[2020-05-20] MEDS: INSULIN LISPRO 300 UNITS/3 ML VIAL. SQ SCH ×3 (08:00→17:14)
[2020-05-20] MEDS: DICLOFENAC SODIUM 1% TOPICAL GEL 100GM TUBE. TP SCH ×2 (09:00→21:00)
[2020-05-20] MEDS: LIDOCAINE (700MG/PATCH) PATCH. TD SCH (09:00)
[2020-05-20] MEDS: LACTOBACILLUS RHAMNOSUS GG 1 CAPSULE. PO SCH ×2 (09:03→21:26)
[2020-05-20] MEDS: DOCUSATE SODIUM 100 MG CAPSULE. PO SCH (09:03)
[2020-05-20] MEDS: CITALOPRAM 20 MG TABLET. PO SCH (09:03)
[2020-05-20] MEDS: SEVELAMER CARBONATE 800 MG TABLET. PO SCH ×3 (09:03→17:14)
[2020-05-20] MEDS: PANTOPRAZOLE 40 MG TABLET.DR. PO SCH (09:03)
[2020-05-20] MEDS: DIVALPROEX DELAYED RELEASE 500 MG TABLET.DR. PO SCH ×2 (09:03→22:01)
[2020-05-20] MEDS: LISINOPRIL 20 MG TABLET PO SCH (09:03)
[2020-05-20] MEDS: FOLIC/VIT B COMP W-C (RENAL) TABLET. PO SCH (09:04)
[2020-05-20] MEDS: CARVEDILOL 12.5 MG TABLET. PO SCH ×2 (09:04→17:14)
[2020-05-20] MEDS: hydrALAZINE 25 MG TABLET PO SCH ×2 (09:04→21:26)
[2020-05-20] MEDS: RANOLAZINE 500 MG TAB.ER.12H PO SCH ×2 (09:04→22:00)
[2020-05-20] MEDS: amLODIPine BESYLATE 10 MG TABLET PO SCH (09:04)
[2020-05-20] MEDS: ASPIRIN CHEWABLE 81 MG TABLET. PO SCH (09:04)
--- NOTE | 2020-05-20 10:27 | PDOC ---
Infectious Disease Note Subjective: Subjective Patient states still feels dizzy and weak Subjective fevers No nausea or vomiting or diarrhea or cough Vital Signs: Vital Signs Vital Signs Date Time Temp Pulse Resp B/P (MAP) Pulse Ox O2 Delivery O2 Flow Rate FiO2 05/20/20 09:04 92 178/65 05/20/20 08:00 Room Air 05/20/20 07:22 97.8 20 93 97.8 Physical Exam: PHYSICAL EXAM GENERAL: Alert and oriented x 3 male, lying in bed comfortably, in no acute distress, nontoxic appearing. HEENT: Normocephalic, atraumatic, anicteric. No thrush. NECK: Supple. LUNGS: Clear bilaterally. No wheezing. HEART: S1, S2. No gallops or murmurs. ABDOMEN: Soft, bowel sounds present. PD catheter in place. No surrounding redness, no tenderness. GENITOURINARY: No Hale. EXTREMITIES: No edema, no cyanosis. DERMATOLOGIC: Warm, dry. No generalized rash. CENTRAL NERVOUS SYSTEM: Alert and awake, moves all 4 extremities. Answers questions appropriately, little slow. Medications: Inpatient Meds: Current Medications Medications (Trade) Dose Ordered Sig/Brittani Start Time Stop Time Status Last Admin Dose Admin Acetaminophen (Tylenol Supp) 650 mg PRN Q4HRS PRN 05/18/20 16:30 Acetaminophen (Tylenol) 650 mg PRN Q4HRS PRN 05/18/20 16:30 05/20/20 02:56 650 MG Albuterol Sulfate (Ventolin Neb Soln) 2.5 mg PRN Q4HRS PRN 05/18/20 16:30 Amlodipine Besylate (Norvasc) 10 mg DAILY 05/18/20 17:00 05/20/20 09:04 10 MG Aspirin (Aspirin Chewable) 81 mg DAILY 05/19/20 09:00 05/20/20 09:04 81 MG Carvedilol (Coreg) 12.5 mg BIDWMEALS 05/18/20 17:00 05/20/20 09:04 12.5 MG Citalopram Hydrobromide (CeleXA) 40 mg DAILY 05/19/20 09:00 05/20/20 09:03 40 MG Dextrose (Dextrose 50%-Water Syringe) 12.5 gm PRN Q15MIN PRN 05/18/20 16:30 Diclofenac Sodium (Voltaren) 1 jv BID 05/18/20 21:00 Divalproex Sodium (Depakote) 1,000 mg BID 05/18/20 21:00 05/20/20 09:03 1,000 MG Docusate Sodium (Colace) 100 mg PRN BID PRN 05/18/20 16:30 Guaifenesin (Robitussin) 200 mg PRN Q4HRS PRN 05/18/20 16:30 Hydralazine HCl (Apresoline Inj) 10 mg PRN Q4HRS PRN 05/18/20 16:30 Hydralazine HCl (Apresoline) 25 mg BID 05/18/20 21:00 05/20/20 09:04 25 MG Info (PHARMACY MONITORING -- do not chart) 1 each PRN DAILY PRN 05/19/20 15:30 Insulin Human Lispro (HumaLOG) 0-5 UNITS TIDWMEALS 05/18/20 17:00 05/19/20 12:19 2 UNITS Lactobacillus Rhamnosus (Culturelle) 1 cap BID 05/19/20 21:00 05/20/20 09:03 1 CAP Lidocaine (Lidoderm) 1 patch DAILY 05/19/20 09:00 Lisinopril (Prinivil) 20 mg DAILY 05/19/20 09:00 05/20/20 09:03 20 MG Lorazepam (Ativan) 0.5 mg PRN Q4HRS PRN 05/18/20 16:30 05/20/20 02:56 0.5 MG Miscellaneous (Lidoderm Patch Removal) 1 ea QHS 05/19/20 21:00 05/19/20 21:00 1 EA Ondansetron HCl (Zofran) 4 mg PRN Q4HRS PRN 05/18/20 16:30 05/19/20 23:06 4 MG Pantoprazole Sodium (Protonix) 40 mg DAILYAC 05/18/20 16:30 05/20/20 09:03 40 MG Piperacillin Sod/ Tazobactam Sod (Zosyn Per Pharmacy) 1 each PRN DAILY PRN 05/18/20 02:45 Piperacillin Sod/ Tazobactam Sod 2.25 gm/Sodium Chloride 50 ml @ 100 mls/hr Q8HRS 05/18/20 04:00 05/20/20 05:04 100 MLS/HR Ranolazine (Ranexa) 500 mg BID 05/18/20 21:00 05/20/20 09:04 500 MG Sevelamer Carbonate (Renvela) 800 mg TIDWMEALS 05/18/20 17:00 05/20/20 09:03 800 MG Sodium Chloride 1,000 ml @ 400 mls/hr Q2H30M PRN 05/19/20 15:22 05/20/20 03:21 DC Sodium Chloride (Normal Saline Flush) 3 ml QSHIFT PRN 05/18/20 16:30 Vancomycin HCl (Vanco Per Pharmacy) 1 each PRN DAILY PRN 05/18/20 16:30 05/18/20 16:37 DC Vancomycin HCl (Vancomycin Random Level) 1 each 1X ONCE 05/20/20 06:00 05/20/20 06:01 DC 05/20/20 05:04 1 EACH Vancomycin HCl 2 gm/Sodium Chloride 500 ml @ 250 mls/hr 1X ONCE 05/18/20 05:00 05/18/20 06:59 DC 05/18/20 05:03 250 MLS/HR Vitamin B Complex/ Vitamin C (Gissel-Irvin) 1 tab DAILY 05/19/20 09:00 05/20/20 09:04 1 TAB Labs: Lab Laboratory Tests Test 05/19/20 12:00 05/19/20 17:30 05/20/20 03:05 05/20/20 08:59 Glucose (Fingerstick) 186 mg/dL (70-99) 164 mg/dL (70-99) Ammonia < 10 mcmol/L (11-34) Valproic Acid (Depakene) Level 41 mcg/mL (50-100) Valproic Acid Last Dose Date Unk Valproic Acid Last Dose Time Unk Sodium Level 138 mmol/L (136-145) Potassium Level 4.1 mmol/L (3.5-5.1) Chloride Level 100 mmol/L (98-107) Carbon Dioxide Level 29 mmol/L (21-32) Anion Gap 9 (6-14) Blood Urea Nitrogen 42 mg/dL (8-26) Creatinine 5.4 mg/dL (0.7-1.3) Estimated GFR (Cockcroft-Gault) 11.2 Glucose Level 206 mg/dL (70-99) Calcium Level 8.1 mg/dL (8.5-10.1) Random Vancomycin Level 13.0 mcg/mL Objective: Assessment: 1. Febrile illness. improved 2. Suspect COVID. 3. End-stage renal disease, on peritoneal dialysis, was on hemodialysis prior. 4. History of fall prior to admission. 5. Diabetes and hypertension. 6. Encephalopathy, likely metabolic. Plan: Plan of Care 1. Continue empiric Zosyn for now, will deescalate soon. 2. Follow up COVID still pending 3. Maintain aspiration precaution until COVID resulted. 4. Follow up cultures and lab. 5. Continue supportive care. LASHAWN URIAS MD May 20, 2020 10:27
--- NOTE | 2020-05-20 11:46 | PDOC ---
Renal-Progress Notes Subjective Notes Notes NO NEW COMPLAINTS History of Present Illness Hx of present illness STABLE Vitals Vitals Vital Signs Date Time Temp Pulse Resp B/P (MAP) Pulse Ox O2 Delivery O2 Flow Rate FiO2 05/20/20 09:04 92 178/65 05/20/20 08:00 Room Air 05/20/20 07:22 97.8 20 93 97.8 Weight Weight [ ] I.O. Intake and Output Intake and Output 05/20/20 07:00 Intake Total 560 ml Output Total 3 ml Balance 557 ml Intake Oral 460 ml IV Total 100 ml Output Urine Total 3 ml # Bowel Movements 2 Labs Labs Laboratory Tests Test 05/19/20 12:00 05/19/20 17:30 05/20/20 03:05 05/20/20 08:59 Glucose (Fingerstick) 186 mg/dL (70-99) 164 mg/dL (70-99) Ammonia < 10 mcmol/L (11-34) Valproic Acid (Depakene) Level 41 mcg/mL (50-100) Valproic Acid Last Dose Date Unk Valproic Acid Last Dose Time Unk Sodium Level 138 mmol/L (136-145) Potassium Level 4.1 mmol/L (3.5-5.1) Chloride Level 100 mmol/L (98-107) Carbon Dioxide Level 29 mmol/L (21-32) Anion Gap 9 (6-14) Blood Urea Nitrogen 42 mg/dL (8-26) Creatinine 5.4 mg/dL (0.7-1.3) Estimated GFR (Cockcroft-Gault) 11.2 Glucose Level 206 mg/dL (70-99) Calcium Level 8.1 mg/dL (8.5-10.1) Random Vancomycin Level 13.0 mcg/mL Test 05/20/20 11:33 Glucose (Fingerstick) 196 mg/dL (70-99) Micro Micro Microbiology 05/18/20 Blood Culture - Preliminary, Resulted NO GROWTH AFTER 1 DAY Review of Systems Constitutional: yes: other (CONFUSED) Physical Exam General Appearance: no apparent distress Skin: warm Respiratory: bilateral CTA Heart: S1S2 Abdomen: soft, bowel sounds present, no rebound, no guarding, distension Genitourinary: bladder flat Extremities: pulses present Neurology: alert, confused Assessment Assessment IMP ESRD ANEMIA NON COMPLIANCE DM II HTN FEVER ENCEPHALOPATHY PLAN RULE OUT COVID 19 ANTIBIOTICS HD [place] TRANSITION BACK TO PD ONCE MORE STABLE BO DOHERTY MD May 20, 2020 11:46
[2020-05-20 11:59] VITALS: BP 149/62
--- NOTE | 2020-05-20 13:27 | PDOC ---
PROGRESS NOTES Chief Complaint Chief Complaint A/P: Acute encephalopathy - likely multifactorial, metabolic with renal disease and IV drug use. Falls - will have PT to assess gait, balance. Diabetes, II--insulin dependent - will cont 42u glargine and sliding scale CAD s/p CABG. Cath 2016 with patent grafts HTN - will cont meds BP disorder - on seroquel Seizures - on depakote Acute on chronic diastolic CHF; Echo 07/19 with preserved LV systolic function - will diurese, still makes some urine, likely gained weight 2/2 starting PD, will need UF Hyperlipidemia - cont statin ESRD on HD - transitioning to PD, will consult nephrology Weight gain - dry weight previously 110kg, now 114kg, possibly related to new PD status, will consult nephrology for further recs. IV fentanyl abuse - counseled on opioid cessation, offered methadone or Suboxone therapy History of Present Illness History of Present Illness Mr Bedolla 54 yo M w/ PMHx smoker, CAD, ischemic CM, ESRD on HD, BP disorder, seizure disorder, DM2, HTN who presents with confusion to ED via EMS accompanied by his . He is s/p PD cath placement 04/04/2020 with no signs of peritonitis. Negative COVID-19 on March 12, 2020. Denies fever, vomiting, diarrhea, dizziness, syncope, headache, vision changes, focal weakness, numbness or tingling and no recent travel or sick contacts. He relates to me he was on hospice until 4 months ago. Weight up 4kg from dry weight of 110kg. He has fallen twice at home. Temp 100.5F in ED on 05/18/2020. UDS negative 05/19: He is still very confused. No bowel movement as of yet. Some abdominal pain. He tearfully relates to me that he has been injecting of 150 mcg daily of IV fentanyl into his left dialysis fistula with insulin needles. He tells me that his has been providing this to him. Afebrile overnight. He is playing with his peritoneal dialysis catheter today. He is oriented to the season and year and location. He is convinced his is picking him up to go home today. I have advised him his COVID-19 repeat testing is still pending. And that he is on IV antibiotics for pneumonia. Plan: Normal ammonia and depakote level Substance abuse counseling - I have offered outpatient suboxone therapy. Consult psychiatry and PAT team Vitals Vitals Vital Signs Date Time Temp Pulse Resp B/P (MAP) Pulse Ox O2 Delivery O2 Flow Rate FiO2 05/20/20 11:59 97.9 79 16 149/62 (91) 94 Room Air 97.9 Physical Exam Physical Exam GENERAL: Alert and oriented x 3 male, lying in bed comfortably, in no acute distress, nontoxic appearing. HEENT: Normocephalic, atraumatic, anicteric. No thrush. NECK: Supple. LUNGS: Clear bilaterally. No wheezing. HEART: S1, S2. No gallops or murmurs. ABDOMEN: Soft, bowel sounds present. PD catheter in place. No surrounding redness, no tenderness. GENITOURINARY: No Hale. EXTREMITIES: No edema, no cyanosis. DERMATOLOGIC: Warm, dry. No generalized rash. CENTRAL NERVOUS SYSTEM: Alert and awake, moves all 4 extremities. Answers questions appropriately, little slow. General: Cooperative, No acute distress Lungs: Clear Abdomen: Soft Skin: No breakdown Labs LABS Laboratory Tests Test 05/19/20 17:30 05/20/20 03:05 05/20/20 08:59 05/20/20 11:33 Ammonia < 10 mcmol/L (11-34) Valproic Acid (Depakene) Level 41 mcg/mL (50-100) Valproic Acid Last Dose Date Unk Valproic Acid Last Dose Time Unk Sodium Level 138 mmol/L (136-145) Potassium Level 4.1 mmol/L (3.5-5.1) Chloride Level 100 mmol/L (98-107) Carbon Dioxide Level 29 mmol/L (21-32) Anion Gap 9 (6-14) Blood Urea Nitrogen 42 mg/dL (8-26) Creatinine 5.4 mg/dL (0.7-1.3) Estimated GFR (Cockcroft-Gault) 11.2 Glucose Level 206 mg/dL (70-99) Calcium Level 8.1 mg/dL (8.5-10.1) Random Vancomycin Level 13.0 mcg/mL Glucose (Fingerstick) 164 mg/dL (70-99) 196 mg/dL (70-99) Assessment and Plan Assessmemt and Plan Problems Medical Problems: (1) Fever Status: Acute (2) Person under investigation for COVID-19 Status: Acute Comment Review of Relevant I have reviewed the following items nelda (where applicable) has been applied. Labs Laboratory Tests Test 05/18/20 15:57 05/18/20 20:27 05/19/20 07:25 05/19/20 08:11 Glucose (Fingerstick) 84 mg/dL (70-99) 109 mg/dL (70-99) 141 mg/dL (70-99) White Blood Count 6.2 x10^3/uL (4.0-11.0) Red Blood Count 2.79 x10^6/uL (4.30-5.70) Hemoglobin 8.9 g/dL (13.0-17.5) Hematocrit 26.1 % (39.0-53.0) Mean Corpuscular Volume 94 fL (79-100) Mean Corpuscular Hemoglobin 32 pg (25-35) Mean Corpuscular Hemoglobin Concent 34 g/dL (31-37) Red Cell Distribution Width 13.0 % (11.5-14.5) Platelet Count 134 x10^3/uL (140-400) Neutrophils (%) (Auto) 61 % (31-73) Lymphocytes (%) (Auto) 22 % (24-48) Monocytes (%) (Auto) 14 % (0-9) Eosinophils (%) (Auto) 3 % (0-3) Basophils (%) (Auto) 1 % (0-3) Neutrophils # (Auto) 3.8 x10^3/uL (1.8-7.7) Lymphocytes # (Auto) 1.3 x10^3/uL (1.0-4.8) Monocytes # (Auto) 0.9 x10^3/uL (0.0-1.1) Eosinophils # (Auto) 0.2 x10^3/uL (0.0-0.7) Basophils # (Auto) 0.0 x10^3/uL (0.0-0.2) Sodium Level 136 mmol/L (136-145) Potassium Level 4.8 mmol/L (3.5-5.1) Chloride Level 100 mmol/L (98-107) Carbon Dioxide Level 25 mmol/L (21-32) Anion Gap 11 (6-14) Blood Urea Nitrogen 84 mg/dL (8-26) Creatinine 8.3 mg/dL (0.7-1.3) Estimated GFR (Cockcroft-Gault) 6.8 BUN/Creatinine Ratio 10 (6-20) Glucose Level 155 mg/dL (70-99) Calcium Level 7.9 mg/dL (8.5-10.1) Total Bilirubin 0.3 mg/dL (0.2-1.0) Aspartate Amino Transf (AST/SGOT) 26 U/L (15-37) Alanine Aminotransferase (ALT/SGPT) 27 U/L (16-63) Alkaline Phosphatase 161 U/L (46-116) Total Protein 5.6 g/dL (6.4-8.2) Albumin 2.2 g/dL (3.4-5.0) Albumin/Globulin Ratio 0.6 (1.0-1.7) Test 05/19/20 12:00 05/19/20 17:30 05/20/20 03:05 05/20/20 08:59 Glucose (Fingerstick) 186 mg/dL (70-99) 164 mg/dL (70-99) Ammonia < 10 mcmol/L (11-34) Valproic Acid (Depakene) Level 41 mcg/mL (50-100) Valproic Acid Last Dose Date Unk Valproic Acid Last Dose Time Unk Sodium Level 138 mmol/L (136-145) Potassium Level 4.1 mmol/L (3.5-5.1) Chloride Level 100 mmol/L (98-107) Carbon Dioxide Level 29 mmol/L (21-32) Anion Gap 9 (6-14) Blood Urea Nitrogen 42 mg/dL (8-26) Creatinine 5.4 mg/dL (0.7-1.3) Estimated GFR (Cockcroft-Gault) 11.2 Glucose Level 206 mg/dL (70-99) Calcium Level 8.1 mg/dL (8.5-10.1) Random Vancomycin Level 13.0 mcg/mL Test 05/20/20 11:33 Glucose (Fingerstick) 196 mg/dL (70-99) Laboratory Tests Test 05/19/20 17:30 05/20/20 03:05 05/20/20 08:59 05/20/20 11:33 Ammonia < 10 mcmol/L (11-34) Valproic Acid (Depakene) Level 41 mcg/mL (50-100) Valproic Acid Last Dose Date Unk Valproic Acid Last Dose Time Unk Sodium Level 138 mmol/L (136-145) Potassium Level 4.1 mmol/L (3.5-5.1) Chloride Level 100 mmol/L (98-107) Carbon Dioxide Level 29 mmol/L (21-32) Anion Gap 9 (6-14) Blood Urea Nitrogen 42 mg/dL (8-26) Creatinine 5.4 mg/dL (0.7-1.3) Estimated GFR (Cockcroft-Gault) 11.2 Glucose Level 206 mg/dL (70-99) Calcium Level 8.1 mg/dL (8.5-10.1) Random Vancomycin Level 13.0 mcg/mL Glucose (Fingerstick) 164 mg/dL (70-99) 196 mg/dL (70-99) Microbiology 05/18/20 Blood Culture - Preliminary, Resulted NO GROWTH AFTER 1 DAY Medications Current Medications Piperacillin Sod/ Tazobactam Sod (Zosyn Per Pharmacy) 1 each PRN DAILY PRN MC SEE COMMENTS; Start 05/18/20 at 02:45 Piperacillin Sod/ Tazobactam Sod 2.25 gm/Sodium Chloride 50 ml @ 100 mls/hr Q8HRS IV Last administered on 05/20/20at 05:04; Start 05/18/20 at 04:00 Vancomycin HCl (Vanco Per Pharmacy) 1 each PRN DAILY PRN MC SEE COMMENTS Last administered on 05/19/20at 17:01; Start 05/18/20 at 04:15; Stop 05/20/20 at 08:00; Status DC Acetaminophen (Tylenol) 650 mg PRN Q4HRS PRN PO FEVER > 100.3'F; Start 05/18/20 at 04:15; Stop 05/18/20 at 16:41; Status DC Vancomycin HCl 2 gm/Sodium Chloride 500 ml @ 250 mls/hr 1X ONCE IV Last administered on 05/18/20at 05:03; Start 05/18/20 at 05:00; Stop 05/18/20 at 06:59; Status DC Aspirin (Aspirin Chewable) 324 mg 1X ONCE PO Last administered on 05/18/20at 15:36; Start 05/18/20 at 06:00; Stop 05/18/20 at 06:01; Status DC Vancomycin HCl (Vancomycin Random Level) 1 each 1X ONCE MC Last administered on 05/20/20at 05:04; Start 05/20/20 at 06:00; Stop 05/20/20 at 06:01; Status DC Amlodipine Besylate (Norvasc) 10 mg DAILY PO Last administered on 05/20/20at 09:04; Start 05/18/20 at 17:00 Aspirin (Aspirin Chewable) 81 mg DAILY PO Last administered on 05/20/20at 09:04; Start 05/19/20 at 09:00 Divalproex Sodium (Depakote) 1,000 mg BID PO Last administered on 05/20/20 09:03; Start 05/18/20 at 21:00 Docusate Sodium (Colace) 100 mg DAILY PO Last administered on 05/20/20 09:03; Start 05/19/20 at 09:00 Vitamin B Complex/ Vitamin C (Gissel-Irvin) 1 tab DAILY PO Last administered on 05/20/20at 09:04; Start 05/19/20 at 09:00 Hydralazine HCl (Apresoline) 25 mg BID PO Last administered on 05/20/20at 09:04; Start 05/18/20 at 21:00 Lisinopril (Prinivil) 20 mg DAILY PO Last administered on 05/20/20at 09:03; Sta rt 05/19/20 at 09:00 Ranolazine (Ranexa) 500 mg BID PO Last administered on 05/20/20at 09:04; Start 05/18/20 at 21:00 Sevelamer Carbonate (Renvela) 800 mg TIDWMEALS PO Last administered on 05/20/20at 09:03; Start 05/18/20 at 17:00 Carvedilol (Coreg) 12.5 mg BIDWMEALS PO Last administered on 05/20/20at 09:04; Start 05/18/20 at 17:00 Citalopram Hydrobromide (CeleXA) 40 mg DAILY PO Last administered on 05/20/20at 09:03; Start 05/19/20 at 09:00 Pantoprazole Sodium (Protonix) 40 mg DAILYAC PO Last administered on 05/20/20at 09:03; Start 05/18/20 at 16:30 Diclofenac Sodium (Voltaren) 1 christo BID TP ; Start 05/18/20 at 21:00 Insulin Human Lispro (HumaLOG) 0-5 UNITS TIDWMEALS SQ Last administered on 05/19/20at 12:19; Start 05/18/20 at 17:00 Dextrose (Dextrose 50%-Water Syringe) 12.5 gm PRN Q15MIN PRN IV SEE COMMENTS; Start 05/18/20 at 16:30 Hydralazine HCl (Apresoline Inj) 10 mg PRN Q4HRS PRN IVP ELEVATED BP, SEE COMMENTS; Start 05/18/20 at 16:30 Sodium Chloride (Normal Saline Flush) 3 ml QSHIFT PRN IV AFTER MEDS AND BLOOD DRAWS; Start 05/18/20 at 16:30 Ondansetron HCl (Zofran) 4 mg PRN Q4HRS PRN IV NAUSEA/VOMITING Last administered on 05/19/20at 23:06; Start 05/18/20 at 16:30 Acetaminophen (Tylenol) 650 mg PRN Q4HRS PRN PO TEMP OVER 100.4F OR MILD PAIN Last administered on 05/20/20at 02:56; Start 05/18/20 at 16:30 Acetaminophen (Tylenol Supp) 650 mg PRN Q4HRS PRN AL TEMP OVER 100.4F OR MILD PAIN; Start 05/18/20 at 16:30 Docusate Sodium (Colace) 100 mg PRN BID PRN PO HARD STOOLS; Start 05/18/20 at 16:30 Albuterol Sulfate (Ventolin Neb Soln) 2.5 mg PRN Q4HRS PRN NEB SHORTNESS OF BREATH; Start 05/18/20 at 16:30 Guaifenesin (Robitussin) 200 mg PRN Q4HRS PRN PO COUGH; Start 05/18/20 at 16:30 Lorazepam (Ativan) 0.5 mg PRN Q4HRS PRN PO ANXIETY / AGITATION Last administer ed on 05/20/20at 02:56; Start 05/18/20 at 16:30 Vancomycin HCl (Vanco Per Pharmacy) 1 each PRN DAILY PRN MC SEE COMMENTS; Start 05/18/20 at 16:30; Stop 05/18/20 at 16:37; Status DC Lidocaine (Lidoderm) 1 patch DAILY TD ; Start 05/19/20 at 09:00 Miscellaneous (Lidoderm Patch Removal) 1 ea QHS MC Last administered on 05/19/20at 21:00; Start 05/19/20 at 21:00 Sodium Chloride 1,000 ml @ 1,000 mls/hr Q1H PRN IV hypotension; Start 05/19/20 at 15:22; Stop 05/19/20 at 21:21; Status DC Sodium Chloride 1,000 ml @ 400 mls/hr Q2H30M PRN IV PATENCY; Start 05/19/20 at 15:22; Stop 05/20/20 at 03:21; Status DC Info (PHARMACY MONITORING -- do not chart) 1 each PRN DAILY PRN MC SEE COMMENTS; Start 05/19/20 at 15:30 Lactobacillus Rhamnosus (Culturelle) 1 cap BID PO Last administered on 05/20/20at 09:03; Start 05/19/20 at 21:00 Active Scripts Active Ondansetron Odt (Ondansetron) 4 Mg Tab.rapdis 1 Tab PO PRN Q6-8HRS PRN [Diclofenac Sodium] 100 GM Gel..gram. 1 Christo TP BID 30 Days Reported Ranexa (Ranolazine) 500 Mg Tab.er.12h 500 Mg PO BID Percocet 7.5-325 Mg Tablet (Oxycodone/Acetaminophen) 1 Each Tablet 1 Tab PO PRN Q6HRS PRN Renal-Irvin Tablet (Folic Acid/Vit Bcomp,C) 0.8 Mg Tablet 0.8 Mg PO DAILY Novolog (Insulin Aspart) 100 Unit/1 Ml Vial 0 SQ PRN TID PRN Ibuprofen 600 Mg Tablet 600 Mg PO PRN Q12HR PRN Diphenhydramine Hcl 25 Mg Tablet 25 Mg PO QHS Furosemide 80 Mg Tablet 120 Mg PO BID Tresiba (Insulin Degludec) 100 Unit/1 Ml Vial 42 Unit SQ DAILY Ativan (Lorazepam) 1 Mg Tablet 0.5 Mg PO Q4HRS Buspirone Hcl 5 Mg Tablet 5 Mg PO BID Lisinopril 20 Mg Tablet 20 Mg PO DAILY Zofran (Ondansetron Hcl) 4 Mg Tablet 1 Tab PO PRN Q4HRS PRN NITROGLYCERIN SubLingual (Nitroglycerin) 0.4 Mg Tab.subl 0.4 Mg SL PRN Q5MIN PRN Hydralazine Hcl 25 Mg Tablet 1 Tab PO BID Gabapentin 400 Mg Capsule 400 Mg PO BID Citalopram Hbr (Citalopram Hydrobromide) 40 Mg Tablet 40 Mg PO HS Cyclobenzaprine Hcl 10 Mg Tablet 1 Tab PO TID PRN PRN Seroquel (Quetiapine Fumarate) 100 Mg Tablet 1 Tab PO QHS Protonix (Pantoprazole Sodium) 20 Mg Tablet.dr 40 Mg PO DAILY Docusate Sodium 100 Mg Capsule 1 Cap PO DAILY Divalproex Sodium 500 Mg Tablet.dr 2 Tab PO BID Aspirin 81 Mg Tab.chew 1 Tab PO DAILY Amitiza (Lubiprostone) 24 Mcg Capsule 1 Cap PO DAILY Norvasc (Amlodipine Besylate) 10 Mg Tablet 10 Mg PO DAILY Coreg (Carvedilol) 25 Mg Tablet 12.5 Mg PO BIDWMEALS Metolazone 5 Mg Tablet 5 Mg PO DAILY Renvela (Sevelamer Carbonate) 800 Mg Tablet 800 Mg PO TIDWMEALS Trazodone Hcl 300 Mg Tablet 150 Mg PO HS Vitals/I & O Vital Sign - Last 24 Hours 05/19/20 05/19/20 05/19/20 05/19/20 15:00 19:05 20:00 21:36 Temp 98.0 96.5 98.0 96.5 Pulse 72 118 118 Resp 20 B/P (MAP) 145/67 (93) 169/89 (115) 169/89 Pulse Ox 98 98 O2 Delivery Room Air Room Air Room Air 05/19/20 05/19/20 05/19/20 05/20/20 21:36 21:37 23:45 03:05 Temp 98.2 98.6 98.2 98.6 Pulse 118 118 81 72 Resp 25 24 B/P (MAP) 169/89 169/89 153/53 (86) 154/64 (94) Pulse Ox 97 96 O2 Delivery Room Air Room Air 05/20/20 05/20/20 05/20/20 05/20/20 07:22 08:00 09:03 09:04 Temp 97.8 97.8 Pulse 92 92 92 Resp 20 B/P (MAP) 178/65 (102) 178/65 178/65 Pulse Ox 93 O2 Delivery Room Air Room Air 05/20/20 05/20/20 05/20/20 05/20/20 09:04 09:04 09:04 11:59 Temp 97.9 97.9 Pulse 92 92 92 79 Resp 16 B/P (MAP) 178/65 178/65 178/65 149/62 (91) Pulse Ox 94 O2 Delivery Room Air Intake and Output 05/19/20 05/19/20 05/20/20 15:00 23:00 07:00 Intake Total 360 ml 50 ml 150 ml Output Total 1 ml 2 ml Balance 360 ml 49 ml 148 ml Justicifation of Admission Dx: Justifications for Admission: Justification of Admission Dx: Yes Altered Mental Status: Altered Mental Status GALI ROMERO MD May 20, 2020 13:27
[2020-05-20 15:07] VITALS: BP 177/68
--- NOTE | 2020-05-20 16:29 | NUR ---
SW following. Reviewed chart and spoke with RN. Pt remains on IV Zosyn. Pt on room air. Pt not ready for discharge today per Dr. Yoder. Discharge plan remains home with , out-patient substance abuse treatment, [facility], and out-patient dialysis at [facility]. SW to continue following.
[2020-05-20] MEDS: hydrALAZINE 20 MG/ML VIAL. IVP PRN (17:16)
[2020-05-20 19:20] VITALS: BP 166/70
[2020-05-20] MEDS: PATCH REMOVAL. MC SCH (21:00)
[2020-05-20 23:00] VITALS: BP 187/77
--- NOTE | 2020-05-20 23:46 | PDOC1 ---
History & Psych Evaluation Date of Admission: Date of Admission DATE: 05/20/20 TIME: 23:27 Source: Source: Caregiver, Chart review, Patient Identification: Identification He is a 54 year old male admitted with acute confusion. Chief Complaint: Chief Complaint Depression and altered mental status. History of Present Illness: HPI: 54 man, with multiple medical comorbidities seen for the evaluation of depression and altered mental status. States, he is depressed due to his medical comorbidities, Of Note, since his dialysis has been started couple of months ago. Additionally anxiety is associated with his depression. Worsening depression makes his more anxious. During conversation he is tearful. Mood is sad and dysphoric. Denies Si or HI. Wanting to live, have great supportive family. Denies AH or VH. No evidence of tono or hypomania. Regarding, mental status he appears confused and disoriented. Stating he is in [facility], and year mention was not correct. Past Psychiatric History: History of depression on Celexa. Denies history of psych admission. Past Medical History: Please see medical chart for details Family History: Denies family history of depression denies history of suicide in the family. Social History: Social History: He lives with his family. Family is reportedly supportive. He is a everyday smoker. Alcohol use is limited to occasional. Denies illicit substance use. Current Medications: Current Medications Current Medications Medications (Trade) Dose Ordered Sig/Brittani Start Time Stop Time Status Last Admin Dose Admin Acetaminophen (Tylenol Supp) 650 mg PRN Q4HRS PRN 05/18/20 16:30 Acetaminophen (Tylenol) 650 mg PRN Q4HRS PRN 05/18/20 16:30 05/20/20 02:56 650 MG Albuterol Sulfate (Ventolin Neb Soln) 2.5 mg PRN Q4HRS PRN 05/18/20 16:30 Amlodipine Besylate (Norvasc) 10 mg DAILY 05/18/20 17:00 05/20/20 09:04 10 MG Aspirin (Aspirin Chewable) 81 mg DAILY 05/19/20 09:00 05/20/20 09:04 81 MG Carvedilol (Coreg) 12.5 mg BIDWMEALS 05/18/20 17:00 05/20/20 17:14 12.5 MG Citalopram Hydrobromide (CeleXA) 40 mg DAILY 05/19/20 09:00 05/20/20 09:03 40 MG Dextrose (Dextrose 50%-Water Syringe) 12.5 gm PRN Q15MIN PRN 05/18/20 16:30 Diclofenac Sodium (Voltaren) 1 jv BID 05/18/20 21:00 Divalproex Sodium (Depakote) 1,000 mg BID 05/18/20 21:00 05/20/20 22:01 1,000 MG Docusate Sodium (Colace) 100 mg PRN BID PRN 05/18/20 16:30 Guaifenesin (Robitussin) 200 mg PRN Q4HRS PRN 05/18/20 16:30 Hydralazine HCl (Apresoline Inj) 10 mg PRN Q4HRS PRN 05/18/20 16:30 05/20/20 17:16 10 MG Hydralazine HCl (Apresoline) 25 mg BID 05/18/20 21:00 05/20/20 21:26 25 MG Info (PHARMACY MONITORING -- do not chart) 1 each PRN DAILY PRN 05/19/20 15:30 Insulin Human Lispro (HumaLOG) 0-5 UNITS TIDWMEALS 05/18/20 17:00 05/20/20 17:14 2 UNITS Lactobacillus Rhamnosus (Culturelle) 1 cap BID 05/19/20 21:00 05/20/20 21:26 1 CAP Lidocaine (Lidoderm) 1 patch DAILY 05/19/20 09:00 Lisinopril (Prinivil) 20 mg DAILY 05/19/20 09:00 05/20/20 09:03 20 MG Lorazepam (Ativan) 0.5 mg PRN Q4HRS PRN 05/18/20 16:30 05/20/20 02:56 0.5 MG Miscellaneous (Lidoderm Patch Removal) 1 ea QHS 05/19/20 21:00 05/19/20 21:00 1 EA Ondansetron HCl (Zofran) 4 mg PRN Q4HRS PRN 05/18/20 16:30 05/19/20 23:06 4 MG Pantoprazole Sodium (Protonix) 40 mg DAILYAC 05/18/20 16:30 05/20/20 09:03 40 MG Piperacillin Sod/ Tazobactam Sod (Zosyn Per Pharmacy) 1 each PRN DAILY PRN 05/18/20 02:45 Piperacillin Sod/ Tazobactam Sod 2.25 gm/Sodium Chloride 50 ml @ 100 mls/hr Q8HRS 05/18/20 04:00 05/20/20 22:21 100 MLS/HR Ranolazine (Ranexa) 500 mg BID 05/18/20 21:00 05/20/20 22:00 500 MG Sevelamer Carbonate (Renvela) 800 mg TIDWMEALS 05/18/20 17:00 05/20/20 17:14 800 MG Sodium Chloride 1,000 ml @ 400 mls/hr Q2H30M PRN 05/19/20 15:22 05/20/20 03:21 DC Sodium Chloride (Normal Saline Flush) 3 ml QSHIFT PRN 05/18/20 16:30 Vancomycin HCl (Vanco Per Pharmacy) 1 each PRN DAILY PRN 05/18/20 16:30 05/18/20 16:37 DC Vancomycin HCl (Vancomycin Random Level) 1 each 1X ONCE 05/20/20 06:00 05/20/20 06:01 DC 05/20/20 05:04 1 EACH Vancomycin HCl 2 gm/Sodium Chloride 500 ml @ 250 mls/hr 1X ONCE 05/18/20 05:00 05/18/20 06:59 DC 05/18/20 05:03 250 MLS/HR Vitamin B Complex/ Vitamin C (Gissel-Irvin) 1 tab DAILY 05/19/20 09:00 05/20/20 09:04 1 TAB Allergies: Allergies: Coded Allergies: hydromorphone (Verified Allergy, Severe, Anaphylaxis, 04/04/20) morphine ok Mental Status Examination: Mental Status Examination gentleman, appears as a stated age, appears in distress. Cooperative interactive but tearful. And confused Fully alert and oriented Thought processes coherent and goal-directed. Denies auditory or visual hallucinations. Denies suicidal or homicidal thoughts. No abnormal perception noted. Mood is depressed. Affect is dysthymic Insight is fair Impulse control is fair Judgment is fair Attention span and concentration impaired Recent memory is impaired ROS: 14 point review of system is otherwise negative except for as stated in H&P. Physical Exam: Refer to Physician's note. 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 MSK: No EPS, TDK, or abnormal involuntary movements Vitals: Vitals Vital Signs Date Time Temp Pulse Resp B/P (MAP) Pulse Ox O2 Delivery O2 Flow Rate FiO2 05/20/20 22:00 81 166/70 05/20/20 19:20 98.4 18 97 Room Air 98.4 Labs: Labs Laboratory Tests Test 05/19/20 07:25 05/19/20 08:11 05/19/20 11:00 05/19/20 12:00 White Blood Count 6.2 x10^3/uL (4.0-11.0) Red Blood Count 2.79 x10^6/uL (4.30-5.70) Hemoglobin 8.9 g/dL (13.0-17.5) Hematocrit 26.1 % (39.0-53.0) Mean Corpuscular Volume 94 fL (79-100) Mean Corpuscular Hemoglobin 32 pg (25-35) Mean Corpuscular Hemoglobin Concent 34 g/dL (31-37) Red Cell Distribution Width 13.0 % (11.5-14.5) Platelet Count 134 x10^3/uL (140-400) Neutrophils (%) (Auto) 61 % (31-73) Lymphocytes (%) (Auto) 22 % (24-48) Monocytes (%) (Auto) 14 % (0-9) Eosinophils (%) (Auto) 3 % (0-3) Basophils (%) (Auto) 1 % (0-3) Neutrophils # (Auto) 3.8 x10^3/uL (1.8-7.7) Lymphocytes # (Auto) 1.3 x10^3/uL (1.0-4.8) Monocytes # (Auto) 0.9 x10^3/uL (0.0-1.1) Eosinophils # (Auto) 0.2 x10^3/uL (0.0-0.7) Basophils # (Auto) 0.0 x10^3/uL (0.0-0.2) Sodium Level 136 mmol/L (136-145) Potassium Level 4.8 mmol/L (3.5-5.1) Chloride Level 100 mmol/L (98-107) Carbon Dioxide Level 25 mmol/L (21-32) Anion Gap 11 (6-14) Blood Urea Nitrogen 84 mg/dL (8-26) Creatinine 8.3 mg/dL (0.7-1.3) Estimated GFR (Cockcroft-Gault) 6.8 BUN/Creatinine Ratio 10 (6-20) Glucose Level 155 mg/dL (70-99) Calcium Level 7.9 mg/dL (8.5-10.1) Total Bilirubin 0.3 mg/dL (0.2-1.0) Aspartate Amino Transf (AST/SGOT) 26 U/L (15-37) Alanine Aminotransferase (ALT/SGPT) 27 U/L (16-63) Alkaline Phosphatase 161 U/L (46-116) Total Protein 5.6 g/dL (6.4-8.2) Albumin 2.2 g/dL (3.4-5.0) Albumin/Globulin Ratio 0.6 (1.0-1.7) Glucose (Fingerstick) 141 mg/dL (70-99) 186 mg/dL (70-99) Coronavirus (PCR) Not detected (Not Detected) Test 05/19/20 17:30 05/20/20 03:05 05/20/20 08:59 05/20/20 11:33 Ammonia < 10 mcmol/L (11-34) Valproic Acid (Depakene) Level 41 mcg/mL (50-100) Valproic Acid Last Dose Date Unk Valproic Acid Last Dose Time Unk Sodium Level 138 mmol/L (136-145) Potassium Level 4.1 mmol/L (3.5-5.1) Chloride Level 100 mmol/L (98-107) Carbon Dioxide Level 29 mmol/L (21-32) Anion Gap 9 (6-14) Blood Urea Nitrogen 42 mg/dL (8-26) Creatinine 5.4 mg/dL (0.7-1.3) Estimated GFR (Cockcroft-Gault) 11.2 Glucose Level 206 mg/dL (70-99) Calcium Level 8.1 mg/dL (8.5-10.1) Random Vancomycin Level 13.0 mcg/mL Glucose (Fingerstick) 164 mg/dL (70-99) 196 mg/dL (70-99) Test 05/20/20 16:28 05/20/20 22:17 Glucose (Fingerstick) 167 mg/dL (70-99) 175 mg/dL (70-99) Laboratory Tests Test 05/20/20 03:05 05/20/20 08:59 05/20/20 11:33 05/20/20 16:28 Sodium Level 138 mmol/L (136-145) Potassium Level 4.1 mmol/L (3.5-5.1) Chloride Level 100 mmol/L (98-107) Carbon Dioxide Level 29 mmol/L (21-32) Anion Gap 9 (6-14) Blood Urea Nitrogen 42 mg/dL (8-26) Creatinine 5.4 mg/dL (0.7-1.3) Estimated GFR (Cockcroft-Gault) 11.2 Glucose Level 206 mg/dL (70-99) Calcium Level 8.1 mg/dL (8.5-10.1) Random Vancomycin Level 13.0 mcg/mL Glucose (Fingerstick) 164 mg/dL (70-99) 196 mg/dL (70-99) 167 mg/dL (70-99) Test 05/20/20 22:17 Glucose (Fingerstick) 175 mg/dL (70-99) Diagnosis: Diagnosis: 1. Acute delirium, likely hypoactive, multifactorial 2. Unspecified depression, rule out major depressive disorder. 3. Unspecified anxiety, rule out generalized anxiety disorder. 4. Rule out anxiety and depression due to general medical condition. Assessment: He is a gentleman with history of depression and anxiety, appears to be confused secondary to multiple medical health problems including medications, infection, and uremia. Additionally, depression and anxiety are precipitated by his complex medical health issues. He is in agreement to start Wellbutrin for the augmentation of Celexa to help with depression. Plan: Start Wellbutrin XL 150 mg daily for augmentation. Risks, benefits, alternatives of the treatment are discussed he is in agreement with plan and voiced understanding. Adverse drug reactions including but not limited to risk of seizures, hyperactivity, anxiety, appetite suppression are discussed risk of increased suicidal thoughts discussed black box warning discussed. Monitor for mood, symptomatology, and adverse drug reaction. Will adjust m edications accordingly. Psychoeducation provided Supportive psychotherapy provided. Thank you for involving inpatient care TURNER FRANKEL MD May 20, 2020 23:45
[2020-05-21 04:00] VITALS: BP 166/70
[2020-05-21] MEDS: ONDANSETRON PF 4 MG/2 ML VIAL. IV PRN (04:19)
[2020-05-21] MEDS: ACETAMINOPHEN 325 MG TABLET. PO PRN (04:25)
[2020-05-21] MEDS: LORazepam 0.5 MG TABLET PO PRN (04:25)
[2020-05-21] MEDS: hydrALAZINE 20 MG/ML VIAL. IVP PRN (04:57)
[2020-05-21] MEDS: PIPERACILLIN/TAZOBACTAM 2.25 GM in IV NORMAL SALINE 50ML 50 ML IV SCH (06:04)
[2020-05-21] MEDS ORDERED: IV NORMAL SALINE 1000ML BAG 1,000 ML IV PRN ×4 (07:00→07:35)
--- NOTE | 2020-05-21 07:15 | NUR ---
Patient noted to have taken his foot of the bed off, reports "I was too hot...so I took it off" unable to put back on the bed, so weight not obtained at this time
[2020-05-21] MEDS ORDERED: DIALYSIS PATIENT. MC PRN ×4 (07:45→08:15)
[2020-05-21] MEDS: SEVELAMER CARBONATE 800 MG TABLET. PO SCH ×2 (08:00→12:00)
[2020-05-21] MEDS: INSULIN LISPRO 300 UNITS/3 ML VIAL. SQ SCH ×2 (08:00→12:00)
[2020-05-21] MEDS: LIDOCAINE (700MG/PATCH) PATCH. TD SCH (08:04)
[2020-05-21] MEDS: DICLOFENAC SODIUM 1% TOPICAL GEL 100GM TUBE. TP SCH (08:05)
--- NOTE | 2020-05-21 08:43 | PDOC ---
PROGRESS NOTES Chief Complaint Chief Complaint A/P: Acute encephalopathy - likely multifactorial, metabolic with renal disease and IV drug use. Falls - will have PT to assess gait, balance. Diabetes, II--insulin dependent - will cont 42u glargine and sliding scale CAD s/p CABG. Cath 2016 with patent grafts HTN - will cont meds BP disorder - on seroquel Seizures - on depakote Acute on chronic diastolic CHF; Echo 07/19 with preserved LV systolic function - will diurese, still makes some urine, likely gained weight 2/2 starting PD, will need UF Hyperlipidemia - cont statin ESRD on HD - transitioning to PD, will consult nephrology Weight gain - dry weight previously 110kg, now 114kg, possibly related to new PD status, will consult nephrology for further recs. IV fentanyl abuse - counseled on opioid cessation, offered methadone or Suboxone therapy History of Present Illness History of Present Illness Mr Bedolla 54 yo M w/ PMHx smoker, CAD, ischemic CM, ESRD on HD, BP disorder, seizure disorder, DM2, HTN who presents with confusion to ED via EMS accompanied by his . He is s/p PD cath placement 04/04/2020 with no signs of peritonitis. Negative COVID-19 on March 12, 2020. Denies fever, vomiting, diarrhea, dizziness, syncope, headache, vision changes, focal weakness, numbness or tingling and no recent travel or sick contacts. He relates to me he was on hospice until 4 months ago. Weight up 4kg from dry weight of 110kg. He has fallen twice at home. Temp 100.5F in ED on 05/18/2020. UDS negative 05/19: He is still very confused. No bowel movement as of yet. Some abdominal pain. He tearfully relates to me that he has been injecting of 150 mcg daily of IV fentanyl into his left dialysis fistula with insulin needles. He tells me that his has been providing this to him. 05/20: Afebrile overnight. He is playing with his peritoneal dialysis catheter today. He is oriented to the season and year and location. He is convinced his is picking him up to go home today. I have advised him his COVID-19 repeat testing is still pending. And that he is on IV antibiotics for pneumonia. Afebrile overnight. COVID-19 returned negative. He still somewhat confused. Had multiple loose stools overnight and during dialysis. His is coming in to review medications. Plan: Normal ammonia and depakote level Substance abuse counseling - I have offered outpatient suboxone therapy. Consult psychiatry and PAT team Vitals Vitals Vital Signs Date Time Temp Pulse Resp B/P (MAP) Pulse Ox O2 Delivery O2 Flow Rate FiO2 05/21/20 04:57 82 166/70 05/21/20 04:00 98.5 18 98 Room Air 98.5 Physical Exam Physical Exam GENERAL: Alert and oriented x 3 male, lying in bed comfortably, in no acute distress, nontoxic appearing. HEENT: Normocephalic, atraumatic, anicteric. No thrush. NECK: Supple. LUNGS: Clear bilaterally. No wheezing. HEART: S1, S2. No gallops or murmurs. ABDOMEN: Soft, bowel sounds present. PD catheter in place. No surrounding redness, no tenderness. GENITOURINARY: No Hale. EXTREMITIES: No edema, no cyanosis. DERMATOLOGIC: Warm, dry. No generalized rash. CENTRAL NERVOUS SYSTEM: Alert and awake, moves all 4 extremities. Answers questions appropriately, little slow. General: Cooperative, No acute distress Lungs: Clear Abdomen: Soft Skin: No breakdown Labs LABS Laboratory Tests Test 05/20/20 08:59 05/20/20 11:33 05/20/20 16:28 05/20/20 22:17 Glucose (Fingerstick) 164 mg/dL (70-99) 196 mg/dL (70-99) 167 mg/dL (70-99) 175 mg/dL (70-99) Assessment and Plan Assessmemt and Plan Problems Medical Problems: (1) Fever Status: Acute (2) Person under investigation for COVID-19 Status: Acute Comment Review of Relevant I have reviewed the following items nelda (where applicable) has been applied. Labs Laboratory Tests Test 05/19/20 11:00 05/19/20 12:00 05/19/20 17:30 05/20/20 03:05 Coronavirus (PCR) Not detected (Not Detected) Glucose (Fingerstick) 186 mg/dL (70-99) Ammonia < 10 mcmol/L (11-34) Valproic Acid (Depakene) Level 41 mcg/mL (50-100) Valproic Acid Last Dose Date Unk Valproic Acid Last Dose Time Unk Sodium Level 138 mmol/L (136-145) Potassium Level 4.1 mmol/L (3.5-5.1) Chloride Level 100 mmol/L (98-107) Carbon Dioxide Level 29 mmol/L (21-32) Anion Gap 9 (6-14) Blood Urea Nitrogen 42 mg/dL (8-26) Creatinine 5.4 mg/dL (0.7-1.3) Estimated GFR (Cockcroft-Gault) 11.2 Glucose Level 206 mg/dL (70-99) Calcium Level 8.1 mg/dL (8.5-10.1) Random Vancomycin Level 13.0 mcg/mL Test 05/20/20 08:59 05/20/20 11:33 05/20/20 16:28 05/20/20 22:17 Glucose (Fingerstick) 164 mg/dL (70-99) 196 mg/dL (70-99) 167 mg/dL (70-99) 175 mg/dL (70-99) Laboratory Tests Test 05/20/20 08:59 05/20/20 11:33 05/20/20 16:28 05/20/20 22:17 Glucose (Fingerstick) 164 mg/dL (70-99) 196 mg/dL (70-99) 167 mg/dL (70-99) 175 mg/dL (70-99) Microbiology 05/18/20 Blood Culture - Preliminary, Resulted NO GROWTH AFTER 2 DAYS Medications Current Medications Piperacillin Sod/ Tazobactam Sod (Zosyn Per Pharmacy) 1 each PRN DAILY PRN MC SEE COMMENTS; Start 05/18/20 at 02:45 Piperacillin Sod/ Tazobactam Sod 2.25 gm/Sodium Chloride 50 ml @ 100 mls/hr Q8HRS IV Last administered on 05/21/20at 06:04; Start 05/18/20 at 04:00 Vancomycin HCl (Vanco Per Pharmacy) 1 each PRN DAILY PRN MC SEE COMMENTS Last administered on 05/19/20at 17:01; Start 05/18/20 at 04:15; Stop 05/20/20 at 08:00; Status DC Acetaminophen (Tylenol) 650 mg PRN Q4HRS PRN PO FEVER > 100.3'F; Start 05/18/20 at 04:15; Stop 05/18/20 at 16:41; Status DC Vancomycin HCl 2 gm/Sodium Chloride 500 ml @ 250 mls/hr 1X ONCE IV Last administered on 05/18/20at 05:03; Start 05/18/20 at 05:00; Stop 05/18/20 at 06:59; Status DC Aspirin (Aspirin Chewable) 324 mg 1X ONCE PO Last administered on 05/18/20at 15:36; Start 05/18/20 at 06:00; Stop 05/18/20 at 06:01; Status DC Vancomycin HCl (Vancomycin Random Level) 1 each 1X ONCE MC Last administered on 05/20/20at 05:04; Start 05/20/20 at 06:00; Stop 05/20/20 at 06:01; Status DC Amlodipine Besylate (Norvasc) 10 mg DAILY PO Last administered on 05/20/20at 09:04; Start 05/18/20 at 17:00 Aspirin (Aspirin Chewable) 81 mg DAILY PO Last administered on 05/20/20at 09:04; Start 05/19/20 at 09:00 Divalproex Sodium (Depakote) 1,000 mg BID PO Last administered on 05/20/20at 22:01; Start 05/18/20 at 21:00 Docusate Sodium (Colace) 100 mg DAILY PO Last administered on 05/20/20at 09:03; Start 05/19/20 at 09:00 Vitamin B Complex/ Vitamin C (Gissel-Irvin) 1 tab DAILY PO Last administered on 05/20/20at 09:04; Start 05/19/20 at 09:00 Hydralazine HCl (Apresoline) 25 mg BID PO Last administered on 05/20/20at 21:26; Start 05/18/20 at 21:00 Lisinopril (Prinivil) 20 mg DAILY PO Last administered on 05/20/20at 09:03; Start 05/19/20 at 09:00 Ranolazine (Ranexa) 500 mg BID PO Last administered on 05/20/20at 22:00; Start 05/18/20 at 21:00 Sevelamer Carbonate (Renvela) 800 mg TIDWMEALS PO Last administered on 05/20/20at 17:14; Start 05/18/20 at 17:00 Carvedilol (Coreg) 12.5 mg BIDWMEALS PO Last administered on 05/20/20at 17:14; Start 05/18/20 at 17:00 Citalopram Hydrobromide (CeleXA) 40 mg DAILY PO Last administered on 05/20/20at 09:03; Start 05/19/20 at 09:00 Pantoprazole Sodium (Protonix) 40 mg DAILYAC PO Last administered on 05/20/20at 09:03; Start 05/18/20 at 16:30 Diclofenac Sodium (Voltaren) 1 christo BID TP ; Start 05/18/20 at 21:00 Insulin Human Lispro (HumaLOG) 0-5 UNITS TIDWMEALS SQ Last administered on 05/20/20at 17:14; Start 05/18/20 at 17:00 Dextrose (Dextrose 50%-Water Syringe) 12.5 gm PRN Q15MIN PRN IV SEE COMMENTS; Start 05/18/20 at 16:30 Hydralazine HCl (Apresoline Inj) 10 mg PRN Q4HRS PRN IVP ELEVATED BP, SEE COMMENTS Last administered on 05/21/20at 04:57; Start 05/18/20 at 16:30 Sodium Chloride (Normal Saline Flush) 3 ml QSHIFT PRN IV AFTER MEDS AND BLOOD DRAWS; Start 05/18/20 at 16:30 Ondansetron HCl (Zofran) 4 mg PRN Q4HRS PRN IV NAUSEA/VOMITING Last administered on 05/21/20at 04:19; Start 05/18/20 at 16:30 Acetaminophen (Tylenol) 650 mg PRN Q4HRS PRN PO TEMP OVER 100.4F OR MILD PAIN Last administered on 05/21/20at 04:25; Start 05/18/20 at 16:30 Acetaminophen (Tylenol Supp) 650 mg PRN Q4HRS PRN GA TEMP OVER 100.4F OR MILD PAIN; Start 05/18/20 at 16:30 Docusate Sodium (Colace) 100 mg PRN BID PRN PO HARD STOOLS; Start 05/18/20 at 16:30 Albuterol Sulfate (Ventolin Neb Soln) 2.5 mg PRN Q4HRS PRN NEB SHORTNESS OF BREATH; Start 05/18/20 at 16:30 Guaifenesin (Robitussin) 200 mg PRN Q4HRS PRN PO COUGH; Start 05/18/20 at 16:30 Lorazepam (Ativan) 0.5 mg PRN Q4HRS PRN PO ANXIETY / AGITATION Last admini stered on 05/21/20at 04:25; Start 05/18/20 at 16:30 Vancomycin HCl (Vanco Per Pharmacy) 1 each PRN DAILY PRN MC SEE COMMENTS; S tart 05/18/20 at 16:30; Stop 05/18/20 at 16:37; Status DC Lidocaine (Lidoderm) 1 patch DAILY TD ; Start 05/19/20 at 09:00 Miscellaneous (Lidoderm Patch Removal) 1 ea QHS MC Last administered on 05/19/20at 21:00; Start 05/19/20 at 21:00 Sodium Chloride 1,000 ml @ 1,000 mls/hr Q1H PRN IV hypotension; Start 05/19/20 at 15:22; Stop 05/19/20 at 21:21; Status DC Sodium Chloride 1,000 ml @ 400 mls/hr Q2H30M PRN IV PATENCY; Start 05/19/20 at 15:22; Stop 05/20/20 at 03:21; Status DC Info (PHARMACY MONITORING -- do not chart) 1 each PRN DAILY PRN MC SEE COMMENTS; Start 05/19/20 at 15:30 Lactobacillus Rhamnosus (Culturelle) 1 cap BID PO Last administered on 05/20/20at 21:26; Start 05/19/20 at 21:00 Bupropion HCl (Wellbutrin Xl) 150 mg DAILY PO ; Start 05/21/20 at 09:00 Sodium Chloride 1,000 ml @ 1,000 mls/hr Q1H PRN IV hypotension; Start 05/21/20 at 07:30; Stop 05/21/20 at 13:29; Status UNV Sodium Chloride 1,000 ml @ 400 mls/hr Q2H30M PRN IV PATENCY; Start 05/21/20 at 07:35; Stop 05/21/20 at 19:34; Status UNV Info (PHARMACY MONITORING -- do not chart) 1 each PRN DAILY PRN MC SEE COMMENTS; Start 05/21/20 at 07:45 Info (PHARMACY MONITORING -- do not chart) 1 each PRN DAILY PRN MC SEE COMMENTS; Start 05/21/20 at 07:45; Status UNV Sodium Chloride 1,000 ml @ 1,000 mls/hr Q1H PRN IV hypotension; Start 05/21/20 at 07:00; Stop 05/21/20 at 12:59 Sodium Chloride 1,000 ml @ 400 mls/hr Q2H30M PRN IV PATENCY; Start 05/21/20 at 07:00; Stop 05/21/20 at 18:59 Info (PHARMACY MONITORING -- do not chart) 1 each PRN DAILY PRN MC SEE COMMENTS; Start 05/21/20 at 08:15; Status UNV Info (PHARMACY MONITORING -- do not chart) 1 each PRN DAILY PRN MC SEE CO MMENTS; Start 05/21/20 at 08:15; Status UNV Active Scripts Active Ondansetron Odt (Ondansetron) 4 Mg Tab.rapdis 1 Tab PO PRN Q6-8HRS PRN [Diclofenac Sodium] 100 GM Gel..gram. 1 Christo TP BID 30 Days Reported Ranexa (Ranolazine) 500 Mg Tab.er.12h 500 Mg PO BID Percocet 7.5-325 Mg Tablet (Oxycodone/Acetaminophen) 1 Each Tablet 1 Tab PO PRN Q6HRS PRN Renal-Irvin Tablet (Folic Acid/Vit Bcomp,C) 0.8 Mg Tablet 0.8 Mg PO DAILY Novolog (Insulin Aspart) 100 Unit/1 Ml Vial 0 SQ PRN TID PRN Ibuprofen 600 Mg Tablet 600 Mg PO PRN Q12HR PRN Diphenhydramine Hcl 25 Mg Tablet 25 Mg PO QHS Furosemide 80 Mg Tablet 120 Mg PO BID Tresiba (Insulin Degludec) 100 Unit/1 Ml Vial 42 Unit SQ DAILY Ativan (Lorazepam) 1 Mg Tablet 0.5 Mg PO Q4HRS Buspirone Hcl 5 Mg Tablet 5 Mg PO BID Lisinopril 20 Mg Tablet 20 Mg PO DAILY Zofran (Ondansetron Hcl) 4 Mg Tablet 1 Tab PO PRN Q4HRS PRN NITROGLYCERIN SubLingual (Nitroglycerin) 0.4 Mg Tab.subl 0.4 Mg SL PRN Q5MIN PRN Hydralazine Hcl 25 Mg Tablet 1 Tab PO BID Gabapentin 400 Mg Capsule 400 Mg PO BID Citalopram Hbr (Citalopram Hydrobromide) 40 Mg Tablet 40 Mg PO HS Cyclobenzaprine Hcl 10 Mg Tablet 1 Tab PO TID PRN PRN Seroquel (Quetiapine Fumarate) 100 Mg Tablet 1 Tab PO QHS Protonix (Pantoprazole Sodium) 20 Mg Tablet.dr 40 Mg PO DAILY Docusate Sodium 100 Mg Capsule 1 Cap PO DAILY Divalproex Sodium 500 Mg Tablet.dr 2 Tab PO BID Aspirin 81 Mg Tab.chew 1 Tab PO DAILY Amitiza (Lubiprostone) 24 Mcg Capsule 1 Cap PO DAILY Norvasc (Amlodipine Besylate) 10 Mg Tablet 10 Mg PO DAILY Coreg (Carvedilol) 25 Mg Tablet 12.5 Mg PO BIDWMEALS Metolazone 5 Mg Tablet 5 Mg PO DAILY Renvela (Sevelamer Carbonate) 800 Mg Tablet 800 Mg PO TIDWMEALS Trazodone Hcl 300 Mg Tablet 150 Mg PO HS Vitals/I & O Vital Sign - Last 24 Hours 05/20/20 05/20/20 05/20/20 05/20/20 09:03 09:04 09:04 09:04 Pulse 92 92 92 92 B/P (MAP) 178/65 178/65 178/65 178/65 05/20/20 05/20/20 05/20/20 05/20/20 09:04 11:59 15:07 17:14 Temp 97.9 98.1 97.9 98.1 Pulse 92 79 75 75 Resp 16 18 B/P (MAP) 178/65 149/62 (91) 177/68 (104) 177/68 Pulse Ox 94 96 O2 Delivery Room Air Room Air 05/20/20 05/20/20 05/20/20 05/20/20 17:16 19:20 20:00 21:26 Temp 98.4 98.4 Pulse 75 81 81 Resp 18 B/P (MAP) 177/68 166/70 (102) 166/70 Pulse Ox 97 O2 Delivery Room Air Room Air 05/20/20 05/20/20 05/21/20 05/21/20 22:00 23:00 04:00 04:57 Temp 98.4 98.5 98.4 98.5 Pulse 81 81 82 82 Resp 18 18 B/P (MAP) 166/70 187/77 (113) 166/70 (102) 166/70 Pulse Ox 96 98 O2 Delivery Room Air Room Air Intake and Output 05/20/20 05/20/20 05/21/20 14:59 22:59 06:59 Intake Total 200 ml 240 ml Output Total 1 ml 101 ml 300 ml Balance 199 ml -101 ml -60 ml Justicifation of Admission Dx: Justifications for Admission: Justification of Admission Dx: Yes Altered Mental Status: Altered Mental Status GALI ROMERO MD May 21, 2020 08:43
[2020-05-21] MEDS ORDERED: AMOXICILLIN/K CLAV 500/125MG TABLET. PO SCH (09:00)
[2020-05-21] MEDS ORDERED: buPROPion XL 150 MG TAB.ER.24H. PO SCH (09:00)
[2020-05-21] MEDS: DOCUSATE SODIUM 100 MG CAPSULE. PO SCH (09:00)
--- NOTE | 2020-05-21 11:32 | PDOC ---
Renal-Progress Notes Subjective Notes Notes FEELING BETTER BUT HAVING DIARRHEA History of Present Illness Hx of present illness STABLE Vitals Vitals Vital Signs Date Time Temp Pulse Resp B/P (MAP) Pulse Ox O2 Delivery O2 Flow Rate FiO2 05/21/20 04:57 82 166/70 05/21/20 04:00 98.5 18 98 Room Air 98.5 Weight Weight [ ] I.O. Intake and Output Intake and Output 05/21/20 06:59 Intake Total 440 ml Output Total 402 ml Balance 38 ml Intake Oral 440 ml Output Urine Total 402 ml # Voids 1 # Bowel Movements 1 Labs Labs Laboratory Tests Test 05/20/20 11:33 05/20/20 16:28 05/20/20 22:17 Glucose (Fingerstick) 196 mg/dL (70-99) 167 mg/dL (70-99) 175 mg/dL (70-99) Micro Micro Microbiology 05/18/20 Blood Culture - Preliminary, Resulted NO GROWTH AFTER 2 DAYS Review of Systems Constitutional: yes: weakness, alert Ears/Nose/Throat: Yes: no symptom reported Eyes: Yes: no symptom reported Pulmonary: Yes no symptom reported Cardiovascular: Yes no symptom reported Gastrointestional: Yes: diarrhea Genitourinary: Yes: no symptom reported Musculoskeletal: Yes: muscle stiffness Skin: Yes no symptom reported Psychiatric/Neurological: Yes: no symptom reported Physical Exam General Appearance: no apparent distress Skin: warm Respiratory: bilateral CTA Heart: S1S2 Abdomen: soft, bowel sounds present, no rebound, no guarding, distension Genitourinary: bladder flat Extremities: pulses present Neurology: alert, confused Assessment Assessment IMP ESRD ANEMIA NON COMPLIANCE DM II HTN FEVER ENCEPHALOPATHY-BETTER PLAN ANTIBIOTICS HD TODAY UF TO DW PD CATH DRESSING CHANGE TODAY TRANSITION BACK TO PD ONCE MORE STABLE BO DOHERTY MD May 21, 2020 11:32
--- NOTE | 2020-05-21 12:35 | PDOC ---
Infectious Disease Note Subjective: Subjective pt says has diarrhea no fevers or chills no abdo pain Vital Signs: Vital Signs Vital Signs Date Time Temp Pulse Resp B/P (MAP) Pulse Ox O2 Delivery O2 Flow Rate FiO2 05/21/20 12:21 96 Room Air 05/21/20 04:57 82 166/70 05/21/20 04:00 98.5 18 98.5 Physical Exam: PHYSICAL EXAM GENERAL: Alert and oriented x 3 male, lying in bed comfortably, in no acute distress, nontoxic appearing. HEENT: Normocephalic, atraumatic, anicteric. No thrush. NECK: Supple. LUNGS: Clear bilaterally. No wheezing. HEART: S1, S2. No gallops or murmurs. ABDOMEN: Soft, bowel sounds present. PD catheter in place. No surrounding redness, no tenderness. GENITOURINARY: No Hale. EXTREMITIES: No edema, no cyanosis. DERMATOLOGIC: Warm, dry. No generalized rash. CENTRAL NERVOUS SYSTEM: Alert and awake, moves all 4 extremities. Answers questions appropriately, little slow. Medications: Inpatient Meds: Current Medications Medications (Trade) Dose Ordered Sig/Brittani Start Time Stop Time Status Last Admin Dose Admin Acetaminophen (Tylenol Supp) 650 mg PRN Q4HRS PRN 05/18/20 16:30 Acetaminophen (Tylenol) 650 mg PRN Q4HRS PRN 05/18/20 16:30 05/21/20 04:25 650 MG Albuterol Sulfate (Ventolin Neb Soln) 2.5 mg PRN Q4HRS PRN 05/18/20 16:30 Amlodipine Besylate (Norvasc) 10 mg DAILY 05/18/20 17:00 05/20/20 09:04 10 MG Amoxicillin/ Clavulanate Potassium (Augmentin 500/ 125mg) 1 tab DAILY 05/21/20 09:00 Aspirin (Aspirin Chewable) 81 mg DAILY 05/19/20 09:00 05/20/20 09:04 81 MG Bupropion HCl (Wellbutrin Xl) 150 mg DAILY 05/21/20 09:00 Carvedilol (Coreg) 12.5 mg BIDWMEALS 05/18/20 17:00 05/20/20 17:14 12.5 MG Citalopram Hydrobromide (CeleXA) 40 mg DAILY 05/19/20 09:00 05/20/20 09:03 40 MG Dextrose (Dextrose 50%-Water Syringe) 12.5 gm PRN Q15MIN PRN 05/18/20 16:30 Diclofenac Sodium (Voltaren) 1 jv BID 05/18/20 21:00 Divalproex Sodium (Depakote) 1,000 mg BID 05/18/20 21:00 05/20/20 22:01 1,000 MG Docusate Sodium (Colace) 100 mg PRN BID PRN 05/18/20 16:30 Guaifenesin (Robitussin) 200 mg PRN Q4HRS PRN 05/18/20 16:30 Hydralazine HCl (Apresoline Inj) 10 mg PRN Q4HRS PRN 05/18/20 16:30 05/21/20 04:57 10 MG Hydralazine HCl (Apresoline) 25 mg BID 05/18/20 21:00 05/20/20 21:26 25 MG Info (PHARMACY MONITORING -- do not chart) 1 each PRN DAILY PRN 05/21/20 08:15 UNV Insulin Human Lispro (HumaLOG) 0-5 UNITS TIDWMEALS 05/18/20 17:00 05/20/20 17:14 2 UNITS Lactobacillus Rhamnosus (Culturelle) 1 cap BID 05/19/20 21:00 05/20/20 21:26 1 CAP Lidocaine (Lidoderm) 1 patch DAILY 05/19/20 09:00 Lisinopril (Prinivil) 20 mg DAILY 05/19/20 09:00 05/20/20 09:03 20 MG Lorazepam (Ativan) 0.5 mg PRN Q4HRS PRN 05/18/20 16:30 05/21/20 04:25 0.5 MG Miscellaneous (Lidoderm Patch Removal) 1 ea QHS 05/19/20 21:00 05/19/20 21:00 1 EA Ondansetron HCl (Zofran) 4 mg PRN Q4HRS PRN 05/18/20 16:30 05/21/20 04:19 4 MG Pantoprazole Sodium (Protonix) 40 mg DAILYAC 05/18/20 16:30 05/20/20 09:03 40 MG Piperacillin Sod/ Tazobactam Sod (Zosyn Per Pharmacy) 1 each PRN DAILY PRN 05/18/20 02:45 05/21/20 08:43 DC Piperacillin Sod/ Tazobactam Sod 2.25 gm/Sodium Chloride 50 ml @ 100 mls/hr Q8HRS 05/18/20 04:00 05/21/20 08:43 DC 05/21/20 06:04 100 MLS/HR Ranolazine (Ranexa) 500 mg BID 05/18/20 21:00 05/20/20 22:00 500 MG Sevelamer Carbonate (Renvela) 800 mg TIDWMEALS 05/18/20 17:00 05/20/20 17:14 800 MG Sodium Chloride 1,000 ml @ 400 mls/hr Q2H30M PRN 05/21/20 07:00 05/21/20 18:59 Sodium Chloride (Normal Saline Flush) 3 ml QSHIFT PRN 05/18/20 16:30 Vancomycin HCl (Vanco Per Pharmacy) 1 each PRN DAILY PRN 05/18/20 16:30 05/18/20 16:37 DC Vancomycin HCl (Vancomycin Random Level) 1 each 1X ONCE 05/20/20 06:00 05/20/20 06:01 DC 05/20/20 05:04 1 EACH Vancomycin HCl 2 gm/Sodium Chloride 500 ml @ 250 mls/hr 1X ONCE 05/18/20 05:00 05/18/20 06:59 DC 05/18/20 05:03 250 MLS/HR Vitamin B Complex/ Vitamin C (Gissel-Irvin) 1 tab DAILY 05/19/20 09:00 05/20/20 09:04 1 TAB Labs: Lab Laboratory Tests Test 05/20/20 16:28 05/20/20 22:17 Glucose (Fingerstick) 167 mg/dL (70-99) 175 mg/dL (70-99) Objective: Assessment: 1. Febrile illness resolved 2. COVID.Negative 3. End-stage renal disease, on peritoneal dialysis, was on hemodialysis prior. 4. History of fall prior to admission. 5. Diabetes and hypertension. 6. Encephalopathy, likely metabolic. Plan: Plan of Care DC Zosyn augmentin check c diff if diarrhea worsens Follow up cultures and lab. Continue supportive care. LASHAWN URIAS MD May 21, 2020 12:35
[2020-05-21 15:00] VITALS: BP 154/68
[2020-05-21 15:26] VITALS: BP 195/75
[2020-05-21] MEDS: FOLIC/VIT B COMP W-C (RENAL) TABLET. PO SCH (15:28)
[2020-05-21] MEDS: LACTOBACILLUS RHAMNOSUS GG 1 CAPSULE. PO SCH (15:29)
[2020-05-21] MEDS: CITALOPRAM 20 MG TABLET. PO SCH (15:29)
[2020-05-21] MEDS: amLODIPine BESYLATE 10 MG TABLET PO SCH (15:29)
[2020-05-21] MEDS: CARVEDILOL 12.5 MG TABLET. PO SCH (15:29)
[2020-05-21 15:30] VITALS: BP 195/75
[2020-05-21] MEDS: LISINOPRIL 20 MG TABLET PO SCH (15:30)
[2020-05-21] MEDS: ASPIRIN CHEWABLE 81 MG TABLET. PO SCH (15:30)
[2020-05-21] MEDS: PANTOPRAZOLE 40 MG TABLET.DR. PO SCH (15:30)
[2020-05-21] MEDS: DIVALPROEX DELAYED RELEASE 500 MG TABLET.DR. PO SCH (15:30)
[2020-05-21] MEDS: hydrALAZINE 25 MG TABLET PO SCH (15:30)
[2020-05-21] MEDS ORDERED: GABA-585 PO (16:38)
[2020-05-21] MEDS ORDERED: AMOX1TAB10 PO (16:38)
--- NOTE | 2020-05-21 16:40 | SNU/HH DC ---
DISCHARGE WITH HOME HEALTH DISCHARGE INFORMATION: Discharge Date: May 21, 2020 Final Diagnosis: Problems Medical Problems: (1) Fever Status: Acute (2) Person under investigation for COVID-19 Status: Acute Condition on Discharge: Stable CODE STATUS: Code Status: Full HOME HEALTH: Face to Face: I certify this patient is under my care and that I, or a nurse practitioner or physician's senior underwriting assistant working with me, had a face to face encounter that meets the physician face to face encounter requirements with this patient on 05/21/2020. Medical Complications: DM, Other (ESRD) RN For Eval/Treatment: Yes Physical Therapy For: Evalulation/Treatment Occupational Therapy For: Evaluation/Treatment Home Health Aide For: Self-care Pt Meets Homebound Status: Frequent falls w/ injury POST DISCHARGE ORDERS: Activity Instructions for Disc: Activity as tolerated Weight Bearing Status after Di: As tolerated DIET AFTER DISCHARGE: Renal Wound/Incision Care: No wound care needed CHECKS AFTER DISCHARGE: Checks after discharge: Check blood press - daily, Check blood sugar, ac/hs FOLLOW-UP: Follow up with: Dr. Ace Hernandez Additional Instructions: STOP 400mg gabapentin, change to 100mg TID prn STOP CYCLOBENZAPRINE AND BENADRYL TREATMENT/EQUIPMENT ORDERS: Adaptive Equipment Issued: None Infusion Equipment, home use: AV shunt (Left arm. PD catheter) Discharge Respiratory Equipmen: Oxygen (2L HS) CERTIFICATION STATEMENT: Certification Statement: Certification Statement: Based on the above finding, I certify that this patient is confined to the home and needs intermittent alf care, physical therapy and/or speech therapy, or continues to need occupational therapy.~ This patient is under my care, and I have initiated the establishment of the plan of care.~ This patient will be followed by myself or a community physician who will periodically review the plan of care. Home Meds Active Scripts Gabapentin (GABAPENTIN ) 100 Mg Capsule, 100 MG PO TID for NEUROGENIC PAIN for 30 Days, #90 CAP Prov:GALI ROMERO MD 05/21/20 Amoxicillin/Potassium Clav (AMOX TR-K CLV 500-125 MG TAB) 1 Each Tablet, 1 TAB PO DAILY for Pneumonia for 5 Days, #5 TAB Prov:GALI ROMERO MD 05/21/20 Ondansetron (ONDANSETRON ODT) 4 Mg Tab.rapdis, 1 TAB PO PRN Q6-8HRS PRN for NAUSEA, #16 TAB Prov:MOLINA ART DO 04/20/20 [Diclofenac Sodium 1% Topical] 100 GM GEL..GRAM. No Conflict Check, 1 MAYRA TP BID for Costochondritis for 30 Days, #60 EACH Prov:GALI ROMERO MD 03/14/20 Reported Medications Ranolazine (RANEXA) 500 Mg Tab.er.12h, 500 MG PO BID for Angina, TAB.SR 05/11/20 Folic Acid/Vit Bcomp,C (Renal-Irvni Tablet) 0.8 Mg Tablet, 0.8 MG PO DAILY for supplement, TAB 04/03/20 Insulin Aspart (NOVOLOG) 100 Unit/1 Ml Vial, 0 SQ PRN TID PRN for sliding scale, VIAL 04/03/20 Lorazepam (ATIVAN) 1 Mg Tablet, 0.5 MG PO Q4HRS for anxiety, TAB 01/17/20 Lisinopril (LISINOPRIL) 20 Mg Tablet, 20 MG PO DAILY for FOR HYPERTENSION, #30 TAB 0 Refills 01/17/20 Ondansetron Hcl (ZOFRAN) 4 Mg Tablet, 1 TAB PO PRN Q4HRS PRN for NAUSEA, #20 TAB 12/30/19 Nitroglycerin (NITROGLYCERIN SubLingual) 0.4 Mg Tab.subl, 0.4 MG SL PRN Q5MIN PRN for CHEST PAIN, BOTTLE 12/30/19 Hydralazine Hcl (HYDRALAZINE HCL) 25 Mg Tablet, 1 TAB PO BID for hypertension, #90 TAB 5 Refills 12/30/19 Citalopram Hydrobromide (CITALOPRAM HBR) 40 Mg Tablet, 40 MG PO HS for anxiety, TAB 12/30/19 Pantoprazole Sodium (PROTONIX) 20 Mg Tablet.dr, 40 MG PO DAILY for , TAB 07/16/19 Docusate Sodium (DOCUSATE SODIUM) 100 Mg Capsule, 1 CAP PO DAILY for , #30 CAP 07/16/19 Divalproex Sodium (DIVALPROEX SODIUM) 500 Mg Tablet.dr, 2 TAB PO BID for , #60 TAB 1 Refill 07/16/19 Aspirin (ASPIRIN) 81 Mg Tab.chew, 1 TAB PO DAILY for , #30 TAB 3 Refills 07/16/19 Lubiprostone (AMITIZA) 24 Mcg Capsule, 1 CAP PO DAILY for , #60 CAP 5 Refills 07/16/19 Amlodipine Besylate (NORVASC) 10 Mg Tablet, 10 MG PO DAILY, TAB 07/24/18 Carvedilol (COREG) 25 Mg Tablet, 12.5 MG PO BIDWMEALS for HTN, TAB 07/24/18 Sevelamer Carbonate (RENVELA) 800 Mg Tablet, 800 MG PO TIDWMEALS, TAB 07/24/18 Discontinued Reported Medications Oxycodone/Apap 7.5-325 (PERCOCET 7.5-325 MG TABLET ) 1 Each Tablet, 1 TAB PO PRN Q6HRS PRN for PAIN, TAB 0 Refills 05/11/20 Ibuprofen (IBUPROFEN) 600 Mg Tablet, 600 MG PO PRN Q12HR PRN for INFLAMMATION, TAB 04/03/20 Diphenhydramine Hcl (DIPHENHYDRAMINE HCL) 25 Mg Tablet, 25 MG PO QHS for sleeo, TAB 04/03/20 Furosemide (FUROSEMIDE) 80 Mg Tablet, 120 MG PO BID for water pill, TAB 03/11/20 Insulin Degludec (Tresiba) 100 Unit/1 Ml Vial, 42 UNIT SQ DAILY for Diabetes, EACH 01/17/20 Buspirone Hcl (BUSPIRONE HCL) 5 Mg Tablet, 5 MG PO BID for ., TAB 01/17/20 Gabapentin (Gabapentin) 400 Mg Capsule, 400 MG PO BID for pain, CAP 12/30/19 Cyclobenzaprine Hcl (CYCLOBENZAPRINE HCL) 10 Mg Tablet, 1 TAB PO TID PRN PRN for MUSCLE SPASMS, #90 TAB 08/31/19 Quetiapine Fumarate (SEROQUEL) 100 Mg Tablet, 1 TAB PO QHS for , #30 TAB 1 Refill 07/16/19 Metolazone (METOLAZONE) 5 Mg Tablet, 5 MG PO DAILY, #30 TAB 0 Refills 07/24/18 Trazodone Hcl (TRAZODONE HCL) 300 Mg Tablet, 150 MG PO HS for insomnia, TAB 07/24/18 GALI ROMERO MD May 21, 2020 16:40
--- NOTE | 2020-05-21 16:46 | PDOC3 ---
Discharge Summary Visit Information Date of Admission: May 18, 2020 Date of Discharge: May 21, 2020 Admitting Diagnosis: Acute encephalopathy Final Diagnosis Problems Medical Problems: (1) Fever Status: Acute (2) Person under investigation for COVID-19 Status: Acute Brief Hospital Course Allergies Allergies Coded Allergies Type Severity Reaction Last Updated Verified hydromorphone Allergy Severe Anaphylaxis 04/04/20 Yes Vital Signs Vital Signs Date Time Temp Pulse Resp B/P (MAP) Pulse Ox O2 Delivery O2 Flow Rate FiO2 05/21/20 15:30 88 195/75 05/21/20 15:00 97.9 18 96 Room Air 97.9 Lab Results Laboratory Tests Test 05/19/20 17:30 05/20/20 03:05 05/20/20 08:59 05/20/20 11:33 Ammonia < 10 mcmol/L (11-34) Valproic Acid (Depakene) Level 41 mcg/mL (50-100) Valproic Acid Last Dose Date Unk Valproic Acid Last Dose Time Unk Sodium Level 138 mmol/L (136-145) Potassium Level 4.1 mmol/L (3.5-5.1) Chloride Level 100 mmol/L (98-107) Carbon Dioxide Level 29 mmol/L (21-32) Anion Gap 9 (6-14) Blood Urea Nitrogen 42 mg/dL (8-26) Creatinine 5.4 mg/dL (0.7-1.3) Estimated GFR (Cockcroft-Gault) 11.2 Glucose Level 206 mg/dL (70-99) Calcium Level 8.1 mg/dL (8.5-10.1) Random Vancomycin Level 13.0 mcg/mL Glucose (Fingerstick) 164 mg/dL (70-99) 196 mg/dL (70-99) Test 05/20/20 16:28 05/20/20 22:17 Glucose (Fingerstick) 167 mg/dL (70-99) 175 mg/dL (70-99) Laboratory Tests Test 05/20/20 22:17 Glucose (Fingerstick) 175 mg/dL (70-99) Brief Hospital Course Mr Bedolla 54 yo M w/ PMHx smoker, CAD, ischemic CM, ESRD on HD, BP disorder, seizure disorder, DM2, HTN who presents with confusion to ED via EMS accompanied by his . He is s/p PD cath placement 04/04/2020 with no signs of peritonitis. Negative COVID-19 on March 12, 2020. Denies fever, vomiting, diarrhea, dizziness, syncope, headache, vision changes, focal weakness, numbness or tingling and no recent travel or sick contacts. He relates to me he was on hospice until 4 months ago. Weight up 4kg from dry weight of 110kg. He has fallen twice at home. Temp 100.5F in ED on 05/18/2020. UDS negative despite reports of opioid use. 05/19: He is still very confused. No bowel movement as of yet. Some abdominal pain. He tearfully relates to me that he has been injecting of 150 mcg daily of IV fentanyl into his left dialysis fistula with insulin needles. He tells me that his has been providing this to him. 05/20: Afebrile overnight. He is playing with his peritoneal dialysis catheter today. He is oriented to the season and year and location. He is convinced his is picking him up to go home today. I have advised him his COVID-19 repeat testing is still pending. And that he is on IV antibiotics for pneumonia. Afebrile overnight. COVID-19 returned negative. He is not confused. Had mu ltiple loose stools overnight and during dialysis. His came in to review medications and we had a long conversation about his discussion of using fentanyl and he does not recall any of this and notes he has never used illicit drugs and does not remember that conversation. They are amenable to reducing gabapentin dosing, stopping oxycodone dosing and stopping benadryl and cyclo benzaprine dosing. Will restart PD and go home with home health. 5 days augmentin for pneumonia Consults: ID and Nephrology Problem list: Acute encephalopathy - likely multifactorial, metabolic with renal disease and polypharmacy Falls - will have PT to assess gait, balance. Diabetes, II--insulin dependent - will cont sliding scale. stop glargine with hypoglycemia CAD s/p CABG. Cath 2016 with patent grafts HTN - will cont meds BP disorder - on seroquel Seizures - on depakote Acute on chronic diastolic CHF; Echo 07/19 with preserved LV systolic function - will diurese, still makes some urine, likely gained weight 2/2 starting PD, will need UF Hyperlipidemia - cont statin ESRD on HD - transitioning to PD, will consult nephrology Weight gain - dry weight previously 110kg, now 114kg, possibly related to new PD status, will consult nephrology for further recs. Opioid use - counseled on opioid cessation, offered methadone or Suboxone therapy, he is going to stop his prescription oxycodone Greater than 30 minutes spent on d/c home with home health Discharge Information Condition at Discharge: Improved Follow Up: Weeks (1) Disposition/Orders: D/C to Home w/ HH Scheduled Amlodipine Besylate (Norvasc) 10 Mg Tablet, 10 MG PO DAILY, (Reported) Entered as Reported by: Betzy Norris on 07/24/18317 Last Action: Continued on 05/18/201620 by SALOMÓN HADDAD MD Amoxicillin/Potassium Clav (Amox Tr-K Clv 500-125 Mg Tab) 1 Each Tablet, 1 TAB PO DAILY for Pneumonia for 5 Days, #5 Prescribed by: GALI ROMERO MD on 05/21/208 Aspirin (Aspirin) 81 Mg Tab.chew, 1 TAB PO DAILY for , #30 Ref 3 (Reported) Entered as Reported by: TREMAYNE ROMERO RN on 07/16/191752 Last Action: Continued on 05/18/201620 by SALOMÓN HADDAD MD Carvedilol (Coreg) 25 Mg Tablet, 12.5 MG PO BIDWMEALS for HTN, (Reported) Entered as Reported by: Betzy Norris on 07/24/18317 Last Action: Converted on 05/18/201620 by SALOMÓN HADDAD MD Citalopram Hydrobromide (Citalopram Hbr) 40 Mg Tablet, 40 MG PO HS for anxiety, (Reported) Entered as Reported by: BRENDON SEGURA on 12/30/19 1016 Last Action: Converted on 05/18/201620 by SALOMÓN HADDAD MD Divalproex Sodium (Divalproex Sodium) 500 Mg Tablet.dr, 2 TAB PO BID for , #60 Ref 1 (Reported) Entered as Reported by: TREMAYNE ROMERO RN on 07/16/191752 Last Action: Continued on 05/18/201620 by SALOMÓN HADDAD MD Docusate Sodium (Docusate Sodium) 100 Mg Capsule, 1 CAP PO DAILY for , #30 (Reported) Entered as Reported by: TREMAYNE ROMERO RN on 07/16/191752 Last Action: Continued on 05/18/201620 by SALOMÓN HADDAD MD Folic Acid/Vit Bcomp,C (Renal-Irvin Tablet) 0.8 Mg Tablet, 0.8 MG PO DAILY for supplement, (Reported) Entered as Reported by: SEVEN NIELSEN on 04/03/20 1302 Last Action: Continued on 05/18/201620 by SALOMÓN HADDAD MD Gabapentin (Gabapentin ) 100 Mg Capsule, 100 MG PO TID for NEUROGENIC PAIN for 30 Days, #90 Prescribed by: GALI ROMERO MD on 05/21/20 1638 Hydralazine Hcl (Hydralazine Hcl) 25 Mg Tablet, 1 TAB PO BID for hypertension, #90 Ref 5 (Reported) Entered as Reported by: BRENDON SEGURA on 12/30/19 1016 Last Action: Continued on 05/18/201620 by SALOMÓN HADDAD MD Lisinopril (Lisinopril) 20 Mg Tablet, 20 MG PO DAILY for FOR HYPERTENSION, #30 Ref 0 (Reported) Entered as Reported by: BHUPENDRA PREEZ on 01/17/20 1035 Last Action: Continued on 05/18/201620 by SALOMÓN HADDAD MD Lorazepam (Ativan) 1 Mg Tablet, 0.5 MG PO Q4HRS for anxiety, (Reported) Entered as Reported by: BHUPENDRA PEREZ on 01/17/20 1050 Last Action: HELD on 05/18/201620 by SALOMÓN HADDAD MD Lubiprostone (Amitiza) 24 Mcg Capsule, 1 CAP PO DAILY for , #60 Ref 5 (Report ed) Entered as Reported by: TREMAYNE ROMERO RN on 07/16/191752 Last Action: HELD on 05/18/201620 by SALOMÓN HADDAD MD Pantoprazole Sodium (Protonix) 20 Mg Tablet.dr, 40 MG PO DAILY for , (Reported) Entered as Reported by: TREMAYNE ROMERO RN on 07/16/191752 Last Action: Converted on 05/18/201620 by SALOMÓN HADDAD MD Ranolazine (Ranexa) 500 Mg Tab.er.12h, 500 MG PO BID for Angina, (Reported) Entered as Reported by: TABATHA MCCLENDON RN on 05/11/20 0813 Last Action: Continued on 05/18/201620 by SALOMÓN HADDAD MD Sevelamer Carbonate (Renvela) 800 Mg Tablet, 800 MG PO TIDWMEALS, (Reported) Entered as Reported by: Betzy Norris on 07/24/18 0302 Last Action: Continued on 05/18/201620 by SALOMÓN HADDAD MD [Diclofenac Sodium] 100 GM GEL..GRAM., 1 MAYRA TP BID for Costochondritis for 30 Days, #60 Prescribed by: GALI ROMERO MD on 03/14/20 1053 Last Action: Converted on 05/18/201620 by SALOMÓN HADDAD MD Scheduled PRN Insulin Aspart (Novolog) 100 Unit/1 Ml Vial, 0 SQ PRN TID PRN for sliding scale, (Reported) Entered as Reported by: SEVEN NIELSEN on 04/03/20 1302 Last Action: HELD on 05/18/201620 by SALOMÓN HADDAD MD Nitroglycerin (NITROGLYCERIN SubLingual) 0.4 Mg Tab.subl, 0.4 MG SL PRN Q5MIN PRN for CHEST PAIN, (Reported) Entered as Reported by: BRENDON SEGURA on 12/30/19 1016 Last Action: HELD on 05/18/201620 by SALOMÓN HADDAD MD Ondansetron (Ondansetron Odt) 4 Mg Tab.rapdis, 1 TAB PO PRN Q6-8HRS PRN for NAUSEA, #16 Prescribed by: MOLINA ART D.O. on 04/20/20 2137 Last Action: HELD on 05/18/201620 by SALOMÓN HADDAD MD Ondansetron Hcl (Zofran) 4 Mg Tablet, 1 TAB PO PRN Q4HRS PRN for NAUSEA, #20 (Reported) Entered as Reported by: BRENDON SEGURA on 12/30/19 1016 Last Action: HELD on 05/18/201620 by SALOMÓN HADDAD MD Discontinued Medications Buspirone Hcl (Buspirone Hcl) 5 Mg Tablet, 5 MG PO BID for ., (Reported) Entered as Reported by: BHUPENDRA PEREZ on 01/17/20 1035 Last Action: HELD on 05/18/20 162 by SALOMÓN HADDAD MD Cyclobenzaprine Hcl (Cyclobenzaprine Hcl) 10 Mg Tablet, 1 TAB PO TID PRN PRN for MUSCLE SPASMS, #90 (Reported) Entered as Reported by: ELVA WOOD on 08/31/19 0849 Last Action: HELD on 05/18/20 162 by SALOMÓN HADDAD MD Diphenhydramine Hcl (Diphenhydramine Hcl) 25 Mg Tablet, 25 MG PO QHS for sleeo, (Reported) Entered as Reported by: SEVEN NIELSEN on 04/03/20 1236 Last Action: HELD on 05/18/201620 by SALOMÓN HADDAD MD Furosemide (Furosemide) 80 Mg Tablet, 120 MG PO BID for water pill, (Reported) Entered as Reported by: PETE AUGUSTINE on 03/11/20 2144 Last Action: HELD on 05/18/201620 by SALOMÓN HADDAD MD Gabapentin (Gabapentin) 400 Mg Capsule, 400 MG PO BID for pain, (Reported) Entered as Reported by: BRENDON SEGURA on 12/30/19 1016 Last Action: HELD on 05/18/201620 by SALOMÓN HADDAD MD Ibuprofen (Ibuprofen) 600 Mg Tablet, 600 MG PO PRN Q12HR PRN for INFLAMMATION, (Reported) Entered as Reported by: SEVEN NIELSEN on 04/03/20 1236 Last Action: HELD on 05/18/201620 by SALOMÓN HADDAD MD Insulin Degludec (Tresiba) 100 Unit/1 Ml Vial, 42 UNIT SQ DAILY for Diabetes, (Reported) Entered as Reported by: BHUPENDRA PEREZ on 01/17/20 1058 Last Action: HELD on 05/18/201620 by SALOMÓN HADDAD MD Metolazone (Metolazone) 5 Mg Tablet, 5 MG PO DAILY, #30 Ref 0 (Reported) Entered as Reported by: Betzy Norris on 07/24/18 0302 Last Action: HELD on 05/18/201620 by SALOMÓN HADDAD MD Oxycodone/Apap 7.5-325 (Percocet 7.5-325 Mg Tablet ) 1 Each Tablet, 1 TAB PO PRN Q6HRS PRN for PAIN, Ref 0 (Reported) Entered as Reported by: BEVERLY FAUST on 05/11/20 0557 Last Action: HELD on 05/18/201620 by SALOMÓN HADDAD MD Quetiapine Fumarate (Seroquel) 100 Mg Tablet, 1 TAB PO QHS for , #30 Ref 1 (Reported) Entered as Reported by: TREMAYNE ROMERO RN on 07/16/19 175 Last Action: HELD on 05/18/201620 by SALOMÓN HADDAD MD Trazodone Hcl (Trazodone Hcl) 300 Mg Tablet, 150 MG PO HS for insomnia, (Reported) Entered as Reported by: Betzy Norris on 07/24/18 0302 Last Action: HELD on 05/18/201620 by SALOMÓN HADDAD MD Justicifation of Admission Dx: Justifications for Admission: Justification of Admission Dx: Yes Altered Mental Status: Altered Mental Status GALI ROMERO MD May 21, 2020 16:45
--- NOTE | 2020-05-21 17:03 | NUR ---
SW following. Reviewed chart and spoke with RN. Coordinated care with MACRINA Roberto from [facility] and Dr. Yoder. Pt to discharge home today on oral medications and room air with his . Pt to follow up out-patient for substance abuse treatment with [facility] and resume out-patient dialysis at [facility]. SW phoned and faxed final discharge orders to [facility], , (fax). No further SW needs at this time.
--- NOTE | 2020-05-21 17:14 | NUR ---
Discharge Note: JULIAN GARCÍA Discharge instructions and discharge home medications reviewed with Patient and a copy given. All questions have been answered and understanding verbalized. The following instructions and handouts were given: Dialysis Discontinued lines and drains: Peripheral IV intact. Patient discharged to Home or Self Care with Family Member via Wheelchair
[2020-06-23] MEDS ORDERED: INSU100V37 SQ (12:30)
== END 2020-05-21 17:16 | disposition home health service (06) | DRG 70 ==
LOC: ER 02:17 → 6 SOUTH 05:29 → ED HOLD 05:39 → 6 SOUTH 08:25 → 5 NORTH 05-20 19:35
PROVIDERS: ADMIT Internal Medicine; ATTEND Internal Medicine
PROC: 5A1D70Z Performance of Urinary Filtration, Intermittent, Less than 6 Hours Per Day (ICD-10-PCS; 2020-05-19)
PROC: 5A1D70Z Performance of Urinary Filtration, Intermittent, Less than 6 Hours Per Day (ICD-10-PCS; principal; 2020-05-21)
DX: G93.41 Metabolic encephalopathy (principal); I50.33 Acute on chronic diastolic (congestive) heart failure; N18.6 End stage renal disease; I13.2 Hypertensive heart and chronic kidney disease with heart failure and with stage 5 chronic kidney disease, or end stage renal disease; I42.0 Dilated cardiomyopathy; Z20.828 Contact with and (suspected) exposure to other viral communicable diseases; Z88.8 Allergy status to other drugs, medicaments and biological substances; Z79.899 Other long term (current) drug therapy; D63.1 Anemia in chronic kidney disease; D72.810 Lymphocytopenia; E11.22 Type 2 diabetes mellitus with diabetic chronic kidney disease; E66.9 Obesity, unspecified; E78.00 Pure hypercholesterolemia, unspecified; E78.5 Hyperlipidemia, unspecified; F17.200 Nicotine dependence, unspecified, uncomplicated; F19.90 Other psychoactive substance use, unspecified, uncomplicated; F32.9 Major depressive disorder, single episode, unspecified; F41.9 Anxiety disorder, unspecified; G40.909 Epilepsy, unspecified, not intractable, without status epilepticus; I25.10 Atherosclerotic heart disease of native coronary artery without angina pectoris; I25.5 Ischemic cardiomyopathy; I65.23 Occlusion and stenosis of bilateral carotid arteries; R29.6 Repeated falls; Z79.4 Long term (current) use of insulin; Z82.49 Family history of ischemic heart disease and other diseases of the circulatory system; Z82.5 Family history of asthma and other chronic lower respiratory diseases; Z86.711 Personal history of pulmonary embolism; Z86.73 Personal history of transient ischemic attack (TIA), and cerebral infarction without residual deficits; Z91.19 Patient's noncompliance with other medical treatment and regimen; Z95.1 Presence of aortocoronary bypass graft; Z99.2 Dependence on renal dialysis; E21.3 Hyperparathyroidism, unspecified; G89.29 Other chronic pain; K21.9 Gastro-esophageal reflux disease without esophagitis
CPT/HCPCS: 36415; 36600; 70450; 71045; 72125; 80048; 80053; 80164; 80202; 80307; 81001; 82140; 82550; 82805; 82962; 83605; 83735; 83880; 84145; 84484; 85025; 85610; 87040; 93005; 96365; G0480; J0360; J1815; J2405; J2543; J3370; J7040; 99285-25; G0378; U0003-CS

== ENCOUNTER 2020-06-06 15:03 | Emergency (ER) | payer MEDICARE, OTHER ==
[~2020-06-06] VITALS: Ht 190.5 cm; Wt 110.0 kg
[~2020-06-06 15:03] MED LIST changes: +GABA-585 PO
[2020-06-06 16:34] LABS: BASO # 0.1 x10^3/uL (0.0-0.2); BASO % 1 % (0-3); EOS # 0.2 x10^3/uL (0.0-0.7); EOS % 2 % (0-3); HEMATOCRIT 30.1 % (39.0-53.0); HEMOGLOBIN 10.2 g/dL (13.0-17.5); LYMPH # 1.8 x10^3/uL (1.0-4.8); LYMPH % 15 % (24-48); MEAN CORPUSCULAR HEMOGLOBIN 32 pg (25-35); MEAN CORPUSCULAR HGB CONC 34 g/dL (31-37); MEAN CORPUSCULAR VOLUME 94 fL (79-100); MONO # 1.1 x10^3/uL (0.0-1.1); MONO % 10 % (0-9); NEUT # 8.2 x10^3/uL (1.8-7.7); NEUT % 72 % (31-73); PLATELET COUNT 361 x10^3/uL (140-400); RED CELL DISTRIBUTION WIDTH 13.7 % (11.5-14.5); WHITE BLOOD COUNT 11.4 x10^3/uL (4.0-11.0)
[2020-06-06 16:45] LABS: CALCIUM 8.4 mg/dL (8.5-10.1); CREATININE 6.8 mg/dL (0.7-1.3); GFR 8.6; POTASSIUM 5.7 mmol/L (3.5-5.1)
[2020-06-06 16:51] LABS: ALBUMIN 2.9 g/dL (3.4-5.0); DIRECT BILIRUBIN 0.1 mg/dL (0.0-0.2); TOTAL BILIRUBIN 0.3 mg/dL (0.2-1.0); TOTAL PROTEIN 7.4 g/dL (6.4-8.2)
[2020-06-06] MEDS ORDERED: ASPIRIN CHEWABLE 81 MG TABLET. PO ONE (17:00)
[2020-06-06] MEDS: NITROGLYCERIN SUBLINGUAL 0.4 MG BOTTLE OF 25. SL PRN ×2 (17:07→17:18)
--- NOTE | 2020-06-06 17:09 | RAD ---
Single view chest dated 06/06/2020. Comparison made to 05/18/2020. CLINICAL INDICATION: Shortness breath. FINDINGS: 2 upright portable exam performed. Heart and mediastinal contours are stable. The patient status post median sternotomy. There is patchy airspace disease at the retrocardiac left base, unchanged. Lungs are otherwise clear. No new infiltrate or pleural effusion. No pneumothorax. IMPRESSION: 1. Mild left basilar airspace disease, similar to prior study. Electronically signed by: Luis Hurd MD (06/06/2020 5:06 PM) [facility]
--- NOTE | 2020-06-06 17:11 | PHYS DOC ---
Past Medical History Past Medical History: Anxiety, CAD, Cancer, CHF, Diabetes-Type II, High Cholesterol, Heart Disease, Hypertension, [place], Pneumonia, Renal Disease, Renal Failure, Seizure Additional Past Medical Histor: dialysis; chronic back pain Past Surgical History: Cholecystectomy, Coronary Bypass Surgery Additional Past Surgical Histo: HERNIA, peritoneal dialysis cath Smoking Status: Current Every Day Smoker Alcohol Use: None Drug Use: None General Adult EDM: Chief Complaint: SHORTNESS OF BREATH HPI: HPI: 54-year-old male presenting to the emergency department today with shortness of breath. He has a history of end-stage renal disease and dialyzes on Tuesday. He has gained 13 pounds over the past 24 hours. He was going to go to dialysis however they instructed him to come here for evaluation because of the amount of weight that he gained. He has had some intermittent chest pain describes it as sharp and shooting nonradiating. He denies vomiting fevers or chills. He denies vomiting fevers or chills Review of systems is negative for abdominal pain vomiting fevers chills. All other review of systems negative. ED course: 54-year-old male presenting to the emergency department today with shortness of breath. On arrival the patient has a temperature of 99.9. Pulse is 79. Blood pressure 153/70. Clinically he is fluid up. Blood work shows a mild leukocytosis of 11.4. Chemistry panel shows low sodium with potassium of 5.7. Creatinine and BUN elevated consistent with end-stage renal disease. EKG obtained and reviewed by myself shows sinus rhythm with a regular rate. ST segments congruent. No peaking T waves. QRS is 90 ms. Chest x-ray shows mild left basilar airspace disease without acute new infiltrate. Similar to prior study. Patient is breathing comfortably on room air. I spoke with Dr. Le the patient's station installation supervisor who was able to arrange dialysis for the patient at the [facility] immediately. We will discharge the patient to be dialyzed there. Heart Score: Risk Factors: Risk Factors: DM, Current or recent (<one month) smoker, HTN, HLP, family history of CAD, obesity. Risk Scores: Score 0 - 3: 2.5% MACE over next 6 weeks - Discharge Home Score 4 - 6: 20.3% MACE over next 6 weeks - Admit for Clinical Observation Score 7 - 10: 72.7% MACE over next 6 weeks - Early Invasive Strategies Current Medications: Current Medications Medications (Trade) Dose Ordered Sig/Brittani Start Time Stop Time Status Last Admin Dose Admin Aspirin (Aspirin Chewable) 324 mg 1X ONCE 06/06/20 17:00 06/06/20 17:01 DC 06/06/20 17:06 324 MG Nitroglycerin (Nitrostat) 0.4 mg PRN Q5MIN PRN 06/06/20 17:00 06/06/20 17:07 0.4 MG Allergies: Allergies: Allergies Coded Allergies Type Severity Reaction Last Updated Verified hydromorphone Allergy Severe Anaphylaxis 04/04/20 Yes Physical Exam: PE: Constitutional: Well developed, well nourished, no acute distress, non-toxic appearance. [] HENT: Normocephalic, atraumatic, bilateral external ears normal, oropharynx moist, no oral exudates, nose normal. [] Eyes: PERRLA, EOMI, conjunctiva normal, no discharge. [] Neck: Normal range of motion, no tenderness, supple, no stridor. [] Cardiovascular:Heart rate regular rhythm, no murmur [] Lungs & Thorax: Mild crackles on the bases. Abdomen: Bowel sounds normal, soft, no tenderness, no masses, no pulsatile masses. [] Skin: Warm, dry, no erythema, no rash. [] Back: No tenderness, no CVA tenderness. [] Extremities: No tenderness, no cyanosis, no clubbing, ROM intact, no edema. [] Neurologic: Alert and oriented X 3, normal motor function, normal sensory function, no focal deficits noted. [] Psychologic: Affect normal, judgement normal, mood normal. [] Current Patient Data: Labs: Laboratory Tests Test 06/06/20 16:24 White Blood Count 11.4 x10^3/uL (4.0-11.0) H Red Blood Count 3.20 x10^6/uL (4.30-5.70) L Hemoglobin 10.2 g/dL (13.0-17.5) L Hematocrit 30.1 % (39.0-53.0) L Mean Corpuscular Volume 94 fL (79-100) Mean Corpuscular Hemoglobin 32 pg (25-35) Mean Corpuscular Hemoglobin Concent 34 g/dL (31-37) Red Cell Distribution Width 13.7 % (11.5-14.5) Platelet Count 361 x10^3/uL (140-400) Neutrophils (%) (Auto) 72 % (31-73) Lymphocytes (%) (Auto) 15 % (24-48) L Monocytes (%) (Auto) 10 % (0-9) H Eosinophils (%) (Auto) 2 % (0-3) Basophils (%) (Auto) 1 % (0-3) Neutrophils # (Auto) 8.2 x10^3/uL (1.8-7.7) H Lymphocytes # (Auto) 1.8 x10^3/uL (1.0-4.8) Monocytes # (Auto) 1.1 x10^3/uL (0.0-1.1) Eosinophils # (Auto) 0.2 x10^3/uL (0.0-0.7) Basophils # (Auto) 0.1 x10^3/uL (0.0-0.2) Sodium Level 130 mmol/L (136-145) L Potassium Level 5.7 mmol/L (3.5-5.1) H Chloride Level 96 mmol/L (98-107) L Carbon Dioxide Level 24 mmol/L (21-32) Anion Gap 10 (6-14) Blood Urea Nitrogen 65 mg/dL (8-26) H Creatinine 6.8 mg/dL (0.7-1.3) H Estimated GFR (Cockcroft-Gault) 8.6 Glucose Level 269 mg/dL (70-99) H Calcium Level 8.4 mg/dL (8.5-10.1) L Total Bilirubin 0.3 mg/dL (0.2-1.0) Direct Bilirubin 0.1 mg/dL (0.0-0.2) Aspartate Amino Transferase (AST) 15 U/L (15-37) Alanine Aminotransferase (ALT) 16 U/L (16-63) Alkaline Phosphatase 197 U/L (46-116) H Troponin I Quantitative < 0.017 ng/mL (0.000-0.055) NW-Cau-H-Type Natriuretic Peptide 37808 pg/mL (0-124) H Total Protein 7.4 g/dL (6.4-8.2) Albumin 2.9 g/dL (3.4-5.0) L Lipase 269 U/L (73-393) Laboratory Tests 06/06/20 16:24 Laboratory Tests 06/06/20 16:24 Vital Signs: Vital Signs Date Time Temp Pulse Resp B/P (MAP) Pulse Ox O2 Delivery O2 Flow Rate FiO2 06/06/20 17:07 77 203/94 06/06/20 15:35 99.9 26 99 Room Air 99.9 EKG: EKG: [] Radiology/Procedures: Radiology/Procedures: [] Course & Med Decision Making: Course & Med Decision Making Pertinent Labs and Imaging studies reviewed. (See chart for details) [] Dragon Disclaimer: Dragon Disclaimer: This electronic medical record was generated, in whole or in part, using a voice recognition dictation system. Departure Departure Impression: Primary Impression: ESRD (end stage renal disease) on dialysis Additional Impression: Hyperkalemia Disposition: HOME, SELF-CARE Admitting Physician: HIMS Condition: STABLE Referrals: UNKNOWN PCP NAME (PCP) Patient Instructions: End Stage Kidney Disease Additional Instructions: Go directly to the dialysis center to be dialyzed. Justicifation of Admission Dx: Justifications for Admission: Justification of Admission Dx: N/A Altered Mental Status: Altered Mental Status JAMIE SINGH MD Jun 06, 2020 17:11
[2020-06-06 17:20] VITALS: BP 150/70
[2020-06-06] MEDS ORDERED: SODIUM POLYSTYRENE SULFON/SORB 15 GM/60 ML ORAL.SUSP. PO ONE (17:30)
--- NOTE | 2020-06-06 18:30 | SSS ---
ADMIT DATE: 06/06/2020 CHIEF COMPLAINT: Shortness of breath. HISTORY OF PRESENT ILLNESS: The patient is a pleasant middle-aged male who is on dialysis. He presented to the ER with shortness of breath. He has gained about 13 pounds in the past 24 hours. I discussed the case with ER physician. He also has hyperkalemia of 5.7. We were going to admit the patient. I did see the patient in the ER and then the dialysis physician called and explained that they could probably get him to dialysis, so we are going to discharge him as well. PAST MEDICAL HISTORY: End-stage renal disease, on dialysis, anxiety, CAD, cancer, diabetes, hypertension, hyperlipidemia, myocardial infarction, pneumonia, seizures, cholecystectomy, coronary artery bypass, hernia repair, dialysis catheter, tobacco abuse. ALLERGIES: HYDROMORPHONE. FAMILY HISTORY: Diabetes. SOCIAL HISTORY: He does not drink, smoke or take drugs. MEDICATIONS: Reviewed, please refer to the MRAD. REVIEW OF SYSTEMS: GENERAL: No history of weight change, weakness or fevers. SKIN: No bruising, hair changes or rashes. EYES: No blurred, double or loss of vision. NOSE AND THROAT: No history of nosebleeds, hoarseness or sore throat. HEART: No history of palpitations, chest pain or shortness of breath on exertion. PULMONARY: He complains of shortness of breath. GASTROINTESTINAL: Denies changes in appetite, nausea, vomiting, diarrhea or constipation. GENITOURINARY: No history of frequency, urgency, hesitancy or nocturia. NEUROLOGIC: Denies history of numbness, tingling, tremor or weakness. PSYCHIATRIC: No history of panic, anxiety or depression. ENDOCRINE: No history of heat or cold intolerance, polyuria or polydipsia. EXTREMITIES: Denies muscle weakness, joint pain, pain on walking or stiffness. PHYSICAL EXAMINATION: VITALS: Within normal limits and are stable. GENERAL: No apparent distress. Alert and oriented. HEENT: Normal cephalic atraumatic, external auditory canals are patent EYES: Extraocular muscles are intact, pupils are equally round and reactive to light and accommodation MUSCULOSKELETAL: Well developed, well nourished, good range of motion ENDOCRINE: No thyromegaly was palpated LYMPHATICS: No cervical chain or axillary nodes were noted HEMATOPOIETIC: No bruising NECK: Supple, no JVD, no thyromegaly was noted. LUNGS: He has decreased breath sounds with crackles. HEART: RRR, S1, S2 present. Peripheral pulses intact, no obvious murmurs were noted. ABDOMEN: Soft, nontender. Positive bowel sounds no organomegaly, normal bowel sounds. EXTREMITIES: Without any cyanosis, clubbing, or edema. Pedal pulses intact, Homans sign is negative. NEUROLOGIC: Normal speech, normal tone. A & O x3, moves all extremities, no obvious focal deficits. PSYCHIATRIC: Normal affect, normal mood. Stable. SKIN: No ulcerations or rashes, good skin turgor, no jaundice. VASCULAR: Good capillary refill, neurovascular bundle appears to be intact. ASSESSMENT AND PLAN: Volume overload secondary to end-stage renal disease and hyperkalemia. As previously stated, we are going to admit him and getting dialyzed, but apparently the clinic is still open, so we are going to go ahead and discharge and have him follow up there for dialysis in about an hour. DISPOSITION: Home after he goes to dialysis right after discharge. ACTIVITY: As tolerated. DIET: Renal. MEDICATIONS: Please see the MRAD. TOTAL TIME: 32 minutes. ZINAL Sid CANSECO DO DR: EZ/kareem JOB#: [id number] / [id number]
--- NOTE | 2020-06-10 05:26 | EKG ---
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
== END 2020-06-06 17:58 | disposition home or self-care (01) ==
LOC: ER 15:03
DX: E11.22 Type 2 diabetes mellitus with diabetic chronic kidney disease (principal); I13.2 Hypertensive heart and chronic kidney disease with heart failure and with stage 5 chronic kidney disease, or end stage renal disease; I50.9 Heart failure, unspecified; N18.6 End stage renal disease; Z99.2 Dependence on renal dialysis; E87.5 Hyperkalemia; E78.00 Pure hypercholesterolemia, unspecified; I25.2 Old myocardial infarction; I25.10 Atherosclerotic heart disease of native coronary artery without angina pectoris; G89.29 Other chronic pain; Z95.1 Presence of aortocoronary bypass graft; F17.200 Nicotine dependence, unspecified, uncomplicated; Z90.49 Acquired absence of other specified parts of digestive tract; Z88.5 Allergy status to narcotic agent
CPT/HCPCS: 36415; 71045; 80048; 80076; 83690; 83880; 84484; 85025; 93005; 99285-25

== ENCOUNTER 2020-06-24 06:32 | Day surgery (SDC) | payer MEDICARE, OTHER ==
[~2020-06-24] VITALS: Ht 188 cm; Wt 111.5 kg
[2020-06-24] MEDS ORDERED: PROCHLORPERAZINE 10 MG/2 ML VIAL. IV PRN (07:00)
[2020-06-24] MEDS ORDERED: fentaNYL PF VIAL 100 MCG/2 ML VIAL IV PRN ×2 (07:00)
[2020-06-24] MEDS ORDERED: IV RINGERS,LACTATED 1000ML 1,000 ML IV SCH (07:00)
[2020-06-24] MEDS ORDERED: INSULIN LISPRO 100 UNIT/ML 3ML VIAL for OP,RR ONLY. SQ PRN (07:15)
[2020-06-24] MEDS ORDERED: IV NORMAL SALINE 1000ML BAG 1,000 ML IV SCH (07:15)
[2020-06-24 07:34] LABS: CALCIUM 8.1 mg/dL (8.5-10.1); CREATININE 5.8 mg/dL (0.7-1.3); GFR 10.3; POTASSIUM 4.5 mmol/L (3.5-5.1)
[2020-06-24] MEDS ORDERED: fentaNYL PF VIAL 100 MCG/2 ML VIAL ONE (08:26)
[2020-06-24] MEDS ORDERED: ONDANSETRON PF 4 MG/2 ML VIAL. ONE (08:26)
[2020-06-24] MEDS ORDERED: LIDOCAINE 2% PF 5 ML VIAL. ONE (08:26)
[2020-06-24] MEDS ORDERED: DEXAMETHASONE SOD PHOS 4 MG/ML VIAL ONE (08:26)
[2020-06-24] MEDS ORDERED: PROPOFOL 10 MG/ML (20ML) VIAL. IV ONE (08:26)
[2020-06-24] MEDS ORDERED: MIDAZOLAM HCL/PF 2 MG/2 ML VIAL. ONE (08:48)
[2020-06-24] MEDS ORDERED: ETOMIDATE 20 MG/10 ML VIAL. IV ONE (08:48)
[2020-06-24] MEDS ORDERED: BUPIVACAINE-EPI 0.5%-1:200000 MPF 30 ML VIAL. ONE (08:53)
[2020-06-24] MEDS ORDERED: ceFAZolin 2GM PREMIX 2 GM/50 ML BAG IV ONE (09:00)
--- NOTE | 2020-06-24 10:05 | PDOC4 ---
Operative Note Operative Note Operative Note: Preoperative Diagnosis: Renal failure Postoperative Diagnosis: Same Procedure: Removal of peritoneal dialysis catheter Surgeon: Demario Product Controller: De FARFAN Anesthesia: General EBL: 10 mL Specimen: None Drains: None Complications: None Indication: The patient is a 54-year-old male who previously had a peritoneal dialysis catheter placed. The peritoneal approach did not dialyze him sufficiently and a request was made for removal of the catheter. The details and risks of surgery were discussed. The risks include bleeding, infection, visceral injury, pain, anesthetic risk, hernia formation, potential need for additional surgery procedure. He understands and would like to proceed. Description: The patient was taken to the operating room and placed supine on the operating table. General anesthesia was performed. The abdomen was prepped with ChloraPrep and draped in a standard surgical manner. An incision was made to the patient's left of the midline at the anticipated location of the distal cuff. Cautery dissection was carried down into the subcutaneous tissue. The distal cuff was identified and readily mobilized from the surrounding tissues. The distal coiled portion of the catheter was then readily retrieved. Through the same incision we were able to dissect toward the proximal cuff. The proximal cuff was similarly freed from surrounding tissues with blunt and cautery dissection. The catheter was then fully extracted and discarded. Several bleeding points were controlled with cautery. Hemostasis was good. The fascial defect was closed with an 0 Vicryl [id number] suture. The subcutaneous tissue was closed with 3-0 Vicryl and skin closed with 4-0 Monocryl. The exit site of the catheter was left open and dressings were applied. The patient tolerated the procedure well and was sent to the recovery room in stable condition. At the end of the case all counts were correct. GASTON VILLAFANA MD Jun 24, 2020 10:05
--- NOTE | 2020-06-24 10:07 | DISCH ---
DISCHARGE INSTRUCTIONS Activity After Discharge Activity Instructions for Disc: Resume previous activity Diet after Discharge Diet after Discharge: Renal Dialysis Liquid Texture: Thin Liquid Wound Incision Care Wound/Incision Care: Other, see below (keep dressings clean and dry X 72 hours, may then remove and shower) Follow-Up Follow up with: Dr Villafana in office in 2 weeks, call for appt [phone] GASTON VILLAFANA MD Jun 24, 2020 10:07
[2020-06-24] MEDS ORDERED: HYDROcodone/APAP 5/325MG 1 TAB TABLET PO ONE (11:00)
[2020-06-24 11:25] VITALS: BP 160/71
== END 2020-06-24 11:32 | disposition home or self-care (01) ==
LOC: SURG 06:32
PROVIDERS: ATTEND Surgery
DX: I13.2 Hypertensive heart and chronic kidney disease with heart failure and with stage 5 chronic kidney disease, or end stage renal disease (principal); N18.6 End stage renal disease; I50.9 Heart failure, unspecified; Z20.828 Contact with and (suspected) exposure to other viral communicable diseases; I25.10 Atherosclerotic heart disease of native coronary artery without angina pectoris; E78.5 Hyperlipidemia, unspecified; E11.22 Type 2 diabetes mellitus with diabetic chronic kidney disease; G47.33 Obstructive sleep apnea (adult) (pediatric); E03.9 Hypothyroidism, unspecified; E78.00 Pure hypercholesterolemia, unspecified; F17.210 Nicotine dependence, cigarettes, uncomplicated; Z88.8 Allergy status to other drugs, medicaments and biological substances; Z98.890 Other specified postprocedural states; Z79.899 Other long term (current) drug therapy; Z79.84 Long term (current) use of oral hypoglycemic drugs
CPT/HCPCS: 36415; 49422; 80048; 82962; 87426; A7015; J0690; J1100; J2250; J2405; J2704; J3010; J3490; U0003

== ENCOUNTER 2020-07-15 16:37 | Inpatient (IN) | payer MEDICARE, OTHER ==
[~2020-07-15] VITALS: Ht 190.5 cm; Wt 108.8 kg
--- NOTE | 2020-07-15 17:33 | PHYS DOC ---
Past Medical History Past Medical History: Anxiety, CAD, Cancer, CHF, Diabetes-Type II, High C holesterol, Heart Disease, Hypertension, [place], Pneumonia, Renal Disease, Renal Failure, Seizure Additional Past Medical Histor: dialysis; chronic back pain Past Surgical History: Cholecystectomy, Coronary Bypass Surgery Additional Past Surgical Histo: HERNIA, peritoneal dialysis cath Smoking Status: Current Every Day Smoker Alcohol Use: None Drug Use: None General Adult EDM: Chief Complaint: HYPERTENSION HPI: HPI: Patient is a 54 year old who presents to the emergency department via EMS with complaints of hyperglycemia and high blood pressure at home. Patient states that his patient also complains of uncontrolled chronic right hip and right lower leg pain after having right hip surgery several years ago. He denies any recent fall or injury to his leg. The patient denies any nausea, vomiting, fever, cough, shortness of breath, chest pain, palpitations, diaphoresis, polyuria, polydipsia, or polyphagia. He states that he has been taking his home subcutaneous insulins as prescribed by his primary care doctor. Patient currently rates his pain a 9 out of 10 on the pain scale, he denies any alleviating factors, his hip pain is worse with movement and ambulation. Review of Systems: Review of Systems: Constitutional: Denies fever or chills. [] Eyes: Denies change in visual acuity. [] HENT: Denies nasal congestion or sore throat. [] Respiratory: Denies cough or shortness of breath. [] Cardiovascular: Denies chest pain or edema. [] GI: Denies nausea, vomiting, or diarrhea. [] : Denies dysuria. [] Musculoskeletal: Denies back pain or joint pain. [] Integument: Denies rash. [] Neurologic: Denies headache, focal weakness or sensory changes. [] Endocrine: See HPI Complete ROS is negative unless otherwise stated in the HPI. Heart Score: Risk Factors: Risk Factors: DM, Current or recent (<one month) smoker, HTN, HLP, family history of CAD, obesity. Risk Scores: Score 0 - 3: 2.5% MACE over next 6 weeks - Discharge Home Score 4 - 6: 20.3% MACE over next 6 weeks - Admit for Clinical Observation Score 7 - 10: 72.7% MACE over next 6 weeks - Early Invasive Strategies Allergies: Allergies: Allergies Coded Allergies Type Severity Reaction Last Updated Verified hydromorphone Allergy Severe Anaphylaxis 06/24/20 Yes Physical Exam: PE: Constitutional: Well developed, well nourished, no acute distress, non-toxic appearance, obese. [] HENT: Normocephalic, atraumatic, bilateral external ears normal, nose normal; dry mucous membranes noted. [] Eyes: PERRLA, EOMI, conjunctiva normal, no discharge. [] Neck: Normal range of motion, no stridor. [] Cardiovascular:Heart rate regular rhythm Lungs & Thorax: Respirations even and unlabored, no retractions, no respiratory distress, lungs CTA Abdomen: soft, no tenderness Back: Tenderness to palpation of lumbar spine without obvious deformity, crepitus, or step-off Skin: Warm, dry; scabbed wound noted to the anterior lower abdomen, without surrounding erythema, warmth, or any drainage Extremities: No cyanosis, ROM intact, no edema; right arm AV fistula, positive bruit, positive thrill [] Neurologic: Alert and oriented X 3, no focal deficits noted. [] Psychologic: Affect normal, judgement normal, mood normal. [] Current Patient Data: Vital Signs: Vital Signs Date Time Temp Pulse Resp B/P (MAP) Pulse Ox O2 Delivery O2 Flow Rate FiO2 07/15/20 16:37 98.9 82 18 171/77 (108) 96 Room Air 98.9 EKG: EK-sinus rhythm, with leftward axis, T abnormality in a high lateral leads, no STEMI, read by Dr. Hubbard [] Radiology/Procedures: Radiology/Procedures: PROCEDURE: CHEST AP ONLY CHEST AP ONLY History: Reason: chest pain / Spl. Instructions: / History: Comparison: June 06, 2020 Findings: Patchy bibasilar opacities, similar compared to prior. No pleural effusion. No pneumothorax. Prior median sternotomy. Enlarged cardiac size, unchanged. Impression: 1. Patchy bibasilar opacities, likely atelectasis, unchanged. PROCEDURE: LUMBAR SPINE 2-3V LUMBAR SPINE 2-3V History: Reason: low back pain after fall 2 days prior to arrival / Spl. Instructions: / History: Technique: 3 views lumbar spine. Comparison: None. Findings: Minimal grade 1 anterolisthesis L4 on L5. Slight retrolisthesis L3 on L4. Normal vertebral body height. No fracture. Multilevel degenerative disc changes most prominent moderate L5-S1. Lower lumbar facet arthropathy. Vascular calcifications advanced for age. Surgical clips right upper quadrant. Large amount stool throughout the colon. Impression: 1. Multilevel lumbar spondylosis most prominent L5-S1. 2. Vascular calcifications advanced for age. 3. Large amount stool throughout the imaged colon.[] Course & Med Decision Making: Course & Med Decision Making Pertinent Labs and Imaging studies reviewed. (See chart for details) 1944-while at the patient's bedside to discuss test results and hyperglycemia without evidence of DKA, the patient now states that he had a scab on his abdo men that drained some pus earlier today and he also reports a fall that happened 2 days prior to arrival. Patient states he has had pain in his low back since the fall. He reports that he has been able to ambulate but not without having severe pain in his low back. Patient reports chronic history of leg pain especially in his right leg after multiple surgeries on that extremity. After further discussion with the patient I will order x-rays of his lower back and admit the patient for hyperglycemia, hypertension, and intractable back pain. 2039-spoke with Dr. Oden who is the admitting physician, and care was assumed following discussion of patient. Will admit patient for hyperglycemia, hypertension, and intractable back pain Patient's vital signs stable. Patient remains afebrile, appears nontoxic, respirations even and unlabored. Patient will be admitted to the [facility] telemetry floor. Patient's case and plan of care also discussed with Dr. Emmy barragan's blood sugar is now 350. Neelima Disclaimer: Neelima Disclaimer: This electronic medical record was generated, in whole or in part, using a voice recognition dictation system. Departure Departure Impression: Primary Impression: Hyperglycemia Additional Impressions: Hypertension Intractable pain Disposition: ADMITTED INPATIENT Admitting Physician: ADAN (Cecille) Condition: STABLE Referrals: KHRIS LOPEZ MD (PCP) Justicifation of Admission Dx: Justifications for Admission: Justification of Admission Dx: Yes Chronic Renal Failure: Hypertension Altered Mental Status: Altered Mental Status SHARAD S[employer] TE[employer]ER Jul 15, 2020 17:33
[2020-07-15] MEDS ORDERED: IV NORMAL SALINE 1000ML BAG 1,000 ML IV ONE (17:45)
[2020-07-15 17:46] LABS: BASO # 0.1 x10^3/uL (0.0-0.2); BASO % 1 % (0-3); EOS # 0.1 x10^3/uL (0.0-0.7); EOS % 1 % (0-3); HEMATOCRIT 35.8 % (39.0-53.0); LYMPH # 1.4 x10^3/uL (1.0-4.8); LYMPH % 20 % (24-48); MEAN CORPUSCULAR HEMOGLOBIN 32 pg (25-35); MEAN CORPUSCULAR HGB CONC 34 g/dL (31-37); MEAN CORPUSCULAR VOLUME 96 fL (79-100); MONO # 0.7 x10^3/uL (0.0-1.1); MONO % 10 % (0-9); NEUT # 4.9 x10^3/uL (1.8-7.7); NEUT % 68 % (31-73); PLATELET COUNT 258 x10^3/uL (140-400); RED BLOOD COUNT 3.74 x10^6/uL (4.30-5.70); RED CELL DISTRIBUTION WIDTH 13.7 % (11.5-14.5); WHITE BLOOD COUNT 7.2 x10^3/uL (4.0-11.0)
[2020-07-15 18:05] LABS: ALBUMIN 3.2 g/dL (3.4-5.0); ALBUMIN/GLOBULIN RATIO 0.7 (1.0-1.7); CALCIUM 8.4 mg/dL (8.5-10.1); CREATININE 6.8 mg/dL (0.7-1.3); GFR 8.6; MAGNESIUM 1.8 mg/dL (1.8-2.4); POTASSIUM 5.3 mmol/L (3.5-5.1); TOTAL BILIRUBIN 0.5 mg/dL (0.2-1.0); TOTAL PROTEIN 7.5 g/dL (6.4-8.2)
[2020-07-15 18:30] LABS: BASE EXCESS COOX -3 mmol/L (-3-3); HCO3 COOX 21 mmol/L (21-28); METHEMOGLOBIN 0.4 % (0.0-1.9); OXYHEMOGLOBIN 93.4 %; PCO2 COOX 34 mmHg (35-46); PO2 COOX 89 mmHg (75-108); SAT O2 COOX 96 % (92-99)
[2020-07-15] MEDS ORDERED: INSULIN REGULAR 100 UNIT/ML 3ML VIAL. IV ONE (18:30)
--- NOTE | 2020-07-15 18:32 | RAD ---
CHEST AP ONLY History: Reason: chest pain / Spl. Instructions: / History: Comparison: June 06, 2020 Findings: Patchy bibasilar opacities, similar compared to prior. No pleural effusion. No pneumothorax. Prior median sternotomy. Enlarged cardiac size, unchanged. Impression: 1. Patchy bibasilar opacities, likely atelectasis, unchanged. Electronically signed by: Joss Maldonado DO (07/15/2020 6:29 PM) [facility]
[2020-07-15 18:55] LABS: BILIRUBIN,URINE NEGATIVE (NEG); CLARITY,URINE CLEAR; COLOR,URINE YELLOW; NITRITE,URINE NEGATIVE (NEG); PH,URINE 6.5 (<5.0-8.0); PROTEIN,URINE >=300 mg/dL (NEG-TRACE); UROBILINOGEN,URINE 0.2 mg/dL (0.2 mg/dL)
[2020-07-15] MEDS ORDERED: oxyCODONE/APAP 10/325 1 TAB TABLET PO ONE (19:00)
[2020-07-15 19:01] LABS: SQUAMOUS EPITHELIAL CELL,UR FEW /LPF
[2020-07-15 19:02] LABS: BACTERIA,URINE 0 /HPF (0-FEW); WBC,URINE 0 /HPF (0-4)
[2020-07-15] MEDS ORDERED: hydrALAZINE 20 MG/ML VIAL. IVP ONE ×2 (19:45→20:00)
[2020-07-15] MEDS ORDERED: fentaNYL PF VIAL 100 MCG/2 ML VIAL IV ONE (21:00)
--- NOTE | 2020-07-15 21:45 | RAD ---
LUMBAR SPINE 2-3V History: Reason: low back pain after fall 2 days prior to arrival / Spl. Instructions: / History: Technique: 3 views lumbar spine. Comparison: None. Findings: Minimal grade 1 anterolisthesis L4 on L5. Slight retrolisthesis L3 on L4. Normal vertebral body height. No fracture. Multilevel degenerative disc changes most prominent moderate L5-S1. Lower lumbar facet arthropathy. Vascular calcifications advanced for age. Surgical clips right upper quadrant. Large amount stool throughout the colon. Impression: 1. Multilevel lumbar spondylosis most prominent L5-S1. 2. Vascular calcifications advanced for age. 3. Large amount stool throughout the imaged colon. Electronically signed by: Joss Maldonado DO (07/15/2020 9:41 PM) [facility]
[2020-07-15 23:00] VITALS: BP 183/93
--- NOTE | 2020-07-15 23:15 | NUR ---
The patient, JULIAN GARCÍA, 54 y/o, M admitted by MAX CANSECO III, DO, was given written information regarding hospital policies, unit procedures and contact persons. Valuables were checked and all questions answered. Attempting to get a hold of doctor for medications. Will continue to monitor.
[2020-07-15] MEDS ORDERED: OXYC1TAB22 PO (23:21)
[2020-07-16] MEDS ORDERED: NITROGLYCERIN SUBLINGUAL 0.4 MG BOTTLE OF 25. SL PRN (00:15)
[2020-07-16] MEDS ORDERED: INSULIN ASPART SQ PRN (00:15)
[2020-07-16] MEDS ORDERED: NICOTINE 21MG PATCH. TD PRN (00:30)
[2020-07-16] MEDS ORDERED: DEXTROSE 50% 25 GM / 50ML DISP.SYRIN. IV PRN (00:30)
[2020-07-16] MEDS ORDERED: ONDANSETRON ODT 4 MG TAB.RAPDIS. PO PRN ×2 (00:45)
[2020-07-16] MEDS: fentaNYL PF VIAL 100 MCG/2 ML VIAL IVP PRN ×9 (00:49→22:50)
[2020-07-16 03:00] VITALS: BP 164/100
[2020-07-16 07:05] VITALS: BP 167/80
--- NOTE | 2020-07-16 07:18 | NUR ---
IP: No active infection at this time and will not need isolation.
[2020-07-16] MEDS: FOLIC/VIT B COMP W-C (RENAL) TABLET. PO SCH (08:10)
[2020-07-16] MEDS: SEVELAMER CARBONATE 800 MG TABLET. PO SCH ×3 (08:10→17:37)
[2020-07-16] MEDS: RANOLAZINE 500 MG TAB.ER.12H PO SCH ×2 (08:11→20:41)
[2020-07-16] MEDS: LUBIPROSTONE 24 MCG CAPSULE PO SCH (08:11)
[2020-07-16] MEDS: CARVEDILOL 12.5 MG TABLET. PO SCH ×2 (08:11→17:37)
[2020-07-16] MEDS: PANTOPRAZOLE 40 MG TABLET.DR. PO SCH (08:12)
[2020-07-16] MEDS: hydrALAZINE 25 MG TABLET PO SCH ×2 (08:12→20:41)
[2020-07-16] MEDS: DIVALPROEX DELAYED RELEASE 500 MG TABLET.DR. PO SCH ×2 (08:12→20:40)
[2020-07-16] MEDS: ASPIRIN CHEWABLE 81 MG TABLET. PO SCH (08:13)
[2020-07-16] MEDS: LISINOPRIL 20 MG TABLET PO SCH (08:13)
[2020-07-16] MEDS: amLODIPine BESYLATE 10 MG TABLET PO SCH (08:13)
[2020-07-16] MEDS: GABAPENTIN 100 MG CAPSULE. PO SCH ×3 (08:14→20:40)
[2020-07-16] MEDS: DICLOFENAC SODIUM 1% TOPICAL GEL 100GM TUBE. TP SCH ×2 (08:14→20:40)
[2020-07-16] MEDS: INSULIN LISPRO 300 UNITS/3 ML VIAL. SQ SCH ×3 (08:16→17:40)
--- NOTE | 2020-07-16 08:18 | PDOC1 ---
History and Physical Date of Admission Date of Admission DATE: 07/16/20 TIME: 08:17 Identification/Chief Complaint Chief Complaint Hypertension, chronic right hip pain Source Source: Patient History of Present Illness History of Present Illness Patient is a 54-year-old male with past medical history of end-stage renal disease on hemodialysis, who presents with hyperglycemia and elevated blood pressures. Patient was referred to the ER by his home health nurse, who noted his blood sugar to be greater than 600. Patient takes 42 units of long-acting insulin at night and sliding scale insulin. He states that he did forget to take his sliding scale insulin, and he is unsure if he took his evening dose of the long-acting insulin. He reports chronic right hip pain, 07/10, following hip surgery number of years ago. He had a mechanical fall outside of his home 2 days ago, and notes a well-healed scab to his abdomen. He was transitioned from peritoneal dialysis to hemodialysis recently. Patient notes a history of intermittent confusion and dizziness since the fall of 2018. States he wears anywhere from 2-4 L of oxygen at night. WBC 7.2, CBG 726 Echocardiogram from 2018 shows an ejection fraction of 65 to 70% Past Medical History Cardiovascular: CAD, CHF, HTN, Hyperlipidemia, Other Pulmonary: Bronchitis, Pulmonary embolus, Pneumonia, Other CENTRAL NERVOUS SYSTEM: CVA, Periperal neuropathy, Other GI: GERD, Other Heme/Onc: Cancer Psych: Depression Renal/: Chronic renal failure Endocrine: Diabetes, Hyperparathyroidism Past Surgical History Past Surgical History: Cholecystectomy, CABG, Tonsillectomy, Other Family History Family History: High Cholestrol, Hypertension, Kidney Disease Social History Smoke: 1 pack per day ALCOHOL: none Drugs: Cocaine Current Problem List Problem List Problems Medical Problems: (1) Hypertension Status: Chronic (2) Intractable pain Status: Acute Current Medications Current Medications Current Medications Sodium Chloride 1,000 ml @ 1,000 mls/hr 1X ONCE IV Last administered on 07/15/20at 17:42; Start 07/15/20 at 17:45; Stop 07/15/20 at 18:44; Status DC Insulin Human Regular (HumuLIN R VIAL) 10 unit 1X ONCE IV Last administered on 07/15/20at 18:46; Start 07/15/20 at 18:30; Stop 07/15/20 at 18:31; Status DC Oxycodone/ Acetaminophen (Percocet 10/325) 1 tab 1X ONCE PO Last administered on 07/15/20at 19:03; Start 07/15/20 at 19:00; Stop 07/15/20 at 19:01; Status DC Hydralazine HCl (Apresoline Inj) 10 mg 1X ONCE IVP ; Start 07/15/20 at 19:45; Stop 07/15/20 at 19:46; Status DC Hydralazine HCl (Apresoline Inj) 10 mg 1X ONCE IVP Last administered on 07/15/20at 19:58; Start 07/15/20 at 20:00; Stop 07/15/20 at 20:01; Status DC Fentanyl Citrate (Fentanyl 2ml Vial) 50 mcg 1X ONCE IV Last administered on at 20:57; Start 07/15/20 at 21:00; Stop 07/15/20 at 21:01; Status DC Amlodipine Besylate (Norvasc) 10 mg DAILY PO ; Start 07/16/20 at 09:00 Aspirin (Aspirin Chewable) 81 mg DAILY PO ; Start 07/16/20 at 09:00 Divalproex Sodium (Depakote) 1,000 mg BID PO ; Start 07/16/20 at 09:00 Docusate Sodium (Colace) 100 mg DAILY PO ; Start 07/16/20 at 09:00 Vitamin B Complex/ Vitamin C (Gissel-Irvin) 1 tab DAILY PO ; Start 07/16/20 at 09:00 Gabapentin (Neurontin) 100 mg TID PO ; Start 07/16/20 at 09:00 Hydralazine HCl (Apresoline) 25 mg BID PO ; Start 07/16/20 at 09:00 Lisinopril (Prinivil) 20 mg DAILY PO ; Start 07/16/20 at 09:00 Lorazepam (Ativan) 0.5 mg PRN Q4HRS PRN PO ANXIETY / AGITATION Last administered on 07/16/20at 00:56; Start 07/16/20 at 00:15 Lubiprostone (Amitiza) 24 mcg DAILY PO ; Start 07/16/20 at 09:00 Nitroglycerin (Nitrostat) 0.4 mg PRN Q5MIN PRN SL CHEST PAIN; Start 07/16/20 at 00:15 Oxycodone/ Acetaminophen (Percocet 10/325) 1 tab QIDPRN PRN PO SEVERE PAIN 7- 10; Start 07/16/20 at 00:15 Ranolazine (Ranexa) 500 mg BID PO ; Start 07/16/20 at 09:00 Sevelamer Carbonate (Renvela) 800 mg TIDWMEALS PO ; Start 07/16/20 at 08:00 Carvedilol (Coreg) 12.5 mg BIDWMEALS PO ; Start 07/16/20 at 08:00 Citalopram Hydrobromide (CeleXA) 40 mg QHS PO ; Start 07/16/20 at 21:00 Non-Formulary Medication (Insulin Aspart (Novolog)) PRN TID PRN SQ sliding scale; Start 07/16/20 at 00:15; Status UNV Insulin Glargine (Lantus Syringe) 42 unit QHS SQ ; Start 07/16/20 at 21:00 Ondansetron HCl (Zofran Odt) 4 mg PRN Q8HRS PRN PO NAUSEA/VOMITING; Start 07/16/20 at 00:45; Stop 07/16/20 at 00:38; Status DC Pantoprazole Sodium (Protonix) 40 mg DAILYAC PO ; Start 07/16/20 at 07:30 Diclofenac Sodium (Voltaren) 1 christo BID TP ; Start 07/16/20 at 09:00 Fentanyl Citrate (Fentanyl 2ml Vial) 50 mcg PRN Q2HR PRN IVP SEVERE PAIN 7-10 Last administered on 07/16/20at 07:08; Start 07/16/20 at 00:30 Nicotine (Nicoderm Cq 21mg) 1 patch PRN DAILY PRN TD SMOKING CESSATION Last administered on 07/16/20at 00:49; Start 07/16/20 at 00:30 Insulin Human Lispro (HumaLOG) 0-9 UNITS TIDWMEALS SQ ; Start 07/16/20 at 08:00 Dextrose (Dextrose 50%-Water Syringe) 12.5 gm PRN Q15MIN PRN IV SEE COMMENTS; Start 07/16/20 at 00:30 Ondansetron HCl (Zofran Odt) 4 mg PRN Q8HRS PRN PO NAUSEA/VOMITING; Start 07/16/20 at 00:45 Active Scripts Active Gabapentin (Gabapentin) 100 Mg Capsule 100 Mg PO TID 30 Days [Diclofenac Sodium] 100 GM Gel..gram. 1 Christo TP BID 30 Days Reported Percocet 10-325 Mg Tablet (Oxycodone/Acetaminophen) 1 Each Tablet 1 Tab PO QIDPRN PRN MDD 4 Tablet(s) Tresiba (Insulin Degludec) 100 Unit/1 Ml Vial 42 Unit SQ HS Ranexa (Ranolazine) 500 Mg Tab.er.12h 500 Mg PO BID Renal-Irvin Tablet (Folic Acid/Vit Bcomp,C) 0.8 Mg Tablet 0.8 Mg PO DAILY Novolog (Insulin Aspart) 100 Unit/1 Ml Vial 0 SQ PRN TID PRN Ativan (Lorazepam) 1 Mg Tablet 0.5 Mg PO PRN Q4HRS PRN Lisinopril 20 Mg Tablet 20 Mg PO DAILY Zofran (Ondansetron Hcl) 4 Mg Tablet 1 Tab PO PRN Q4HRS PRN NITROGLYCERIN SubLingual (Nitroglycerin) 0.4 Mg Tab.subl 0.4 Mg SL PRN Q5MIN PRN Hydralazine Hcl 25 Mg Tablet 1 Tab PO BID Citalopram Hbr (Citalopram Hydrobromide) 40 Mg Tablet 40 Mg PO HS Protonix (Pantoprazole Sodium) 20 Mg Tablet.dr 40 Mg PO DAILY Docusate Sodium 100 Mg Capsule 1 Cap PO DAILY Divalproex Sodium 500 Mg Tablet.dr 2 Tab PO BID Aspirin 81 Mg Tab.chew 1 Tab PO DAILY Amitiza (Lubiprostone) 24 Mcg Capsule 1 Cap PO DAILY Norvasc (Amlodipine Besylate) 10 Mg Tablet 10 Mg PO DAILY Coreg (Carvedilol) 25 Mg Tablet 12.5 Mg PO BIDWMEALS Renvela (Sevelamer Carbonate) 800 Mg Tablet 800 Mg PO TIDWMEALS Allergies Allergies: Coded Allergies: hydromorphone (Verified Allergy, Severe, Anaphylaxis, 06/24/20) morphine ok ROS Review of System GENERAL: No history of weight change, weakness or fevers. SKIN: No bruising, hair changes or rashes. EYES: No blurred, double or loss of vision. NOSE AND THROAT: No history of nosebleeds, hoarseness or sore throat. HEART: Hypertension. Denies chest pain, denies palpitations. LUNGS: Denies cough, hemoptysis, wheezing or shortness of breath. GASTROINTESTINAL: Denies nausea, vomiting, abdominal pain. GENITOURINARY: Denies dysuria, frequency, urgency, hematuria. NEUROLOGIC: Intermittent confusion. Denies history of numbness, tingling, tremor or weakness. PSYCHIATRIC: Denies anxiety, denies depression. ENDOCRINE: Hyperglycemia. No history of heat or cold intolerance, polyuria or polydipsia. EXTREMITIES: Denies muscle weakness, joint pain, pain on walking or stiffness. Physical Exam Physical Exam General: Alert, Oriented X3, Cooperative, No acute distress HEENT: PERRLA, EOMI Lungs: Clear to auscultation, Normal air movement Heart: RRR, no murmurs Cardiovascular: S1, S2 Abdomen: Obese abdomen. Normal bowel sounds, Soft, No tenderness Extremities: No clubbing, No cyanosis Skin: 2 cm scab to anterior abdomen, minimal surrounding erythema. No rashes, No significant lesion Neuro: Normal speech, Normal tone, Sensation intact Psych/Mental Status: Mental status NL, Mood NL Vitals Vitals Vital Signs Date Time Temp Pulse Resp B/P (MAP) Pulse Ox O2 Delivery O2 Flow Rate FiO2 07/16/20 08:08 Room Air 07/16/20 07:08 17 07/16/20 03:00 98.5 60 164/100 (121) 99 98.5 Labs Labs Laboratory Tests Test 07/15/20 17:33 07/15/20 18:11 07/15/20 18:43 07/15/20 19:13 White Blood Count 7.2 x10^3/uL (4.0-11.0) Red Blood Count 3.74 x10^6/uL (4.30-5.70) Hemoglobin 12.0 g/dL (13.0-17.5) Hematocrit 35.8 % (39.0-53.0) Mean Corpuscular Volume 96 fL (79-100) Mean Corpuscular Hemoglobin 32 pg (25-35) Mean Corpuscular Hemoglobin Concent 34 g/dL (31-37) Red Cell Distribution Width 13.7 % (11.5-14.5) Platelet Count 258 x10^3/uL (140-400) Neutrophils (%) (Auto) 68 % (31-73) Lymphocytes (%) (Auto) 20 % (24-48) Monocytes (%) (Auto) 10 % (0-9) Eosinophils (%) (Auto) 1 % (0-3) Basophils (%) (Auto) 1 % (0-3) Neutrophils # (Auto) 4.9 x10^3/uL (1.8-7.7) Lymphocytes # (Auto) 1.4 x10^3/uL (1.0-4.8) Monocytes # (Auto) 0.7 x10^3/uL (0.0-1.1) Eosinophils # (Auto) 0.1 x10^3/uL (0.0-0.7) Basophils # (Auto) 0.1 x10^3/uL (0.0-0.2) Sodium Level 122 mmol/L (136-145) Potassium Level 5.3 mmol/L (3.5-5.1) Chloride Level 88 mmol/L (98-107) Carbon Dioxide Level 24 mmol/L (21-32) Anion Gap 10 (6-14) Blood Urea Nitrogen 52 mg/dL (8-26) Creatinine 6.8 mg/dL (0.7-1.3) Estimated GFR (Cockcroft-Gault) 8.6 BUN/Creatinine Ratio 8 (6-20) Glucose Level 726 mg/dL (70-99) Calcium Level 8.4 mg/dL (8.5-10.1) Magnesium Level 1.8 mg/dL (1.8-2.4) Total Bilirubin 0.5 mg/dL (0.2-1.0) Aspartate Amino Transf (AST/SGOT) 13 U/L (15-37) Alanine Aminotransferase (ALT/SGPT) 15 U/L (16-63) Alkaline Phosphatase 155 U/L (46-116) Total Protein 7.5 g/dL (6.4-8.2) Albumin 3.2 g/dL (3.4-5.0) Albumin/Globulin Ratio 0.7 (1.0-1.7) O2 Saturation 96 % (92-99) Arterial Blood pH 7.40 (7.35-7.45) Arterial Blood pCO2 at Patient Temp 34 mmHg (35-46) Arterial Blood pO2 at Patient Temp 89 mmHg (75-108) Arterial Blood HCO3 21 mmol/L (21-28) Arterial Blood Base Excess -3 mmol/L (-3-3) Oxyhemoglobin 93.4 % Methemoglobin 0.4 % (0.0-1.9) Carbon Monoxide, Quantitative 2.2 % (0.0-1.9) FiO2 Ra 21% Urine Collection Type Void Urine Color Yellow Urine Clarity Clear Urine pH 6.5 (<5.0-8.0) Urine Specific Cable 1.015 (1.000-1.030) Urine Protein >=300 mg/dL (NEG-TRACE) Urine Glucose (UA) >=1000 mg/dL (NEG) Urine Ketones (Stick) Negative mg/dL (NEG) Urine Blood Negative (NEG) Urine Nitrite Negative (NEG) Urine Bilirubin Negative (NEG) Urine Urobilinogen Dipstick 0.2 mg/dL (0.2 mg/dL) Urine Leukocyte Esterase Negative (NEG) Urine RBC 1-2 /HPF (0-2) Urine WBC 0 /HPF (0-4) Urine Squamous Epithelial Cells Few /LPF Urine Bacteria 0 /HPF (0-FEW) Urine Mucus Slight /LPF Glucose (Fingerstick) 506 mg/dL (70-99) Test 07/15/20 20:48 07/16/20 07:57 Glucose (Fingerstick) 350 mg/dL (70-99) 210 mg/dL (70-99) Laboratory Tests Test 07/15/20 17:33 07/15/20 18:11 07/15/20 18:43 07/15/20 19:13 White Blood Count 7.2 x10^3/uL (4.0-11.0) Red Blood Count 3.74 x10^6/uL (4.30-5.70) Hemoglobin 12.0 g/dL (13.0-17.5) Hematocrit 35.8 % (39.0-53.0) Mean Corpuscular Volume 96 fL (79-100) Mean Corpuscular Hemoglobin 32 pg (25-35) Mean Corpuscular Hemoglobin Concent 34 g/dL (31-37) Red Cell Distribution Width 13.7 % (11.5-14.5) Platelet Count 258 x10^3/uL (140-400) Neutrophils (%) (Auto) 68 % (31-73) Lymphocytes (%) (Auto) 20 % (24-48) Monocytes (%) (Auto) 10 % (0-9) Eosinophils (%) (Auto) 1 % (0-3) Basophils (%) (Auto) 1 % (0-3) Neutrophils # (Auto) 4.9 x10^3/uL (1.8-7.7) Lymphocytes # (Auto) 1.4 x10^3/uL (1.0-4.8) Monocytes # (Auto) 0.7 x10^3/uL (0.0-1.1) Eosinophils # (Auto) 0.1 x10^3/uL (0.0-0.7) Basophils # (Auto) 0.1 x10^3/uL (0.0-0.2) Sodium Level 122 mmol/L (136-145) Potassium Level 5.3 mmol/L (3.5-5.1) Chloride Level 88 mmol/L (98-107) Carbon Dioxide Level 24 mmol/L (21-32) Anion Gap 10 (6-14) Blood Urea Nitrogen 52 mg/dL (8-26) Creatinine 6.8 mg/dL (0.7-1.3) Estimated GFR (Cockcroft-Gault) 8.6 BUN/Creatinine Ratio 8 (6-20) Glucose Level 726 mg/dL (70-99) Calcium Level 8.4 mg/dL (8.5-10.1) Magnesium Level 1.8 mg/dL (1.8-2.4) Total Bilirubin 0.5 mg/dL (0.2-1.0) Aspartate Amino Transf (AST/SGOT) 13 U/L (15-37) Alanine Aminotransferase (ALT/SGPT) 15 U/L (16-63) Alkaline Phosphatase 155 U/L (46-116) Total Protein 7.5 g/dL (6.4-8.2) Albumin 3.2 g/dL (3.4-5.0) Albumin/Globulin Ratio 0.7 (1.0-1.7) O2 Saturation 96 % (92-99) Arterial Blood pH 7.40 (7.35-7.45) Arterial Blood pCO2 at Patient Temp 34 mmHg (35-46) Arterial Blood pO2 at Patient Temp 89 mmHg (75-108) Arterial Blood HCO3 21 mmol/L (21-28) Arterial Blood Base Excess -3 mmol/L (-3-3) Oxyhemoglobin 93.4 % Methemoglobin 0.4 % (0.0-1.9) Carbon Monoxide, Quantitative 2.2 % (0.0-1.9) FiO2 Ra 21% Urine Collection Type Void Urine Color Yellow Urine Clarity Clear Urine pH 6.5 (<5.0-8.0) Urine Specific Cable 1.015 (1.000-1.030) Urine Protein >=300 mg/dL (NEG-TRACE) Urine Glucose (UA) >=1000 mg/dL (NEG) Urine Ketones (Stick) Negative mg/dL (NEG) Urine Blood Negative (NEG) Urine Nitrite Negative (NEG) Urine Bilirubin Negative (NEG) Urine Urobilinogen Dipstick 0.2 mg/dL (0.2 mg/dL) Urine Leukocyte Esterase Negative (NEG) Urine RBC 1-2 /HPF (0-2) Urine WBC 0 /HPF (0-4) Urine Squamous Epithelial Cells Few /LPF Urine Bacteria 0 /HPF (0-FEW) Urine Mucus Slight /LPF Glucose (Fingerstick) 506 mg/dL (70-99) Test 07/15/20 20:48 07/16/20 07:57 Glucose (Fingerstick) 350 mg/dL (70-99) 210 mg/dL (70-99) Images Images LUMBAR SPINE 2-3V History: Reason: low back pain after fall 2 days prior to arrival / Spl. Instructions: / History: Technique: 3 views lumbar spine. Comparison: None. Findings: Minimal grade 1 anterolisthesis L4 on L5. Slight retrolisthesis L3 on L4. Normal vertebral body height. No fracture. Multilevel degenerative disc changes most prominent moderate L5-S1. Lower lumbar facet arthropathy. Vascular calcifications advanced for age. Surgical clips right upper quadrant. Large amount stool throughout the colon. Impression: 1. Multilevel lumbar spondylosis most prominent L5-S1. 2. Vascular calcifications advanced for age. 3. Large amount stool throughout the imaged colon. VTE Prophylaxis Ordered VTE Prophylaxis Devices: No VTE Pharmacological Prophylaxi: Yes Assessment/Plan Assessment/Plan Hyperglycemia Hyponatremia Hypertension End-stage renal disease on hemodialysis Malnutrition Intractable pain Plan: Patient with questionable medication compliance. Will resume home blood pressure medications and adjust as necessary. Resume home insulin and adjust as necessary. Consults placed to nephrology. Echocardiogram pending. Fluid restriction. PT/OT. VTE prophylaxis. Full code, is surrogate decision-maker. Justifications for Admission Other Justification MO NAM MD Jul 16, 2020 08:18
[2020-07-16] MEDS ORDERED: DOCUSATE SODIUM 100 MG CAPSULE. PO SCH (09:00)
--- NOTE | 2020-07-16 10:43 | EKG ---
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
[2020-07-16 11:05] VITALS: BP 155/77
[2020-07-16] MEDS: oxyCODONE/APAP 10/325 1 TAB TABLET PO PRN ×2 (11:50→19:32)
[2020-07-16] MEDS ORDERED: HYDROcodone/APAP 5/325MG 1 TAB TABLET PO PRN ×2 (12:30)
[2020-07-16] MEDS: HEPARIN for SUB-Q USE 5,000 UNIT/ML VIAL. SQ SCH ×2 (13:00→20:48)
[2020-07-16] MEDS ORDERED: ALBUMIN HUMAN 25% 200 ML IV PRN (13:00)
[2020-07-16] MEDS: DOCUSATE SODIUM 100 MG CAPSULE. PO SCH ×2 (13:00→20:40)
[2020-07-16] MEDS ORDERED: IV NORMAL SALINE 1000ML BAG 1,000 ML IV PRN ×2 (13:00)
--- NOTE | 2020-07-16 13:32 | PDOC2 ---
CONSULT Date of Consult Date of Consult DATE: 07/16/20 TIME: 13:27 Reason for Consult Reason for Consult: HIGH K, LOW NA, HIGH GLU AND ESRD Referring Physician Referring Physician: CYRIL Identification/Chief Complaint Chief Complaint GENERALIZED WEAKNESS Source Source: Chart review, Patient History of Present Illness Reason for Visit: THIS IS A 54 YR OLD ESRD PT. HAD BEEN ON HD AND PD IN THE PAST AND NOW BACK ON HD. ADMITTED WITH HIGH BP AND HIGH BG OF NEARLY 800. NA IS LOW AND K IS HIGH. NO KETOSIS NOTED. LABS ARE C/W HIS ESRD. HAS OP HD ON MWF ESRD DUE TO DM II AND HTN. HAS HX OF NON COMPLIANCE. HAS LEFT ARM AV ACCESS FOR HD. Past Medical History Cardiovascular: CAD, CHF, HTN, Hyperlipidemia, Other Pulmonary: Bronchitis, Pulmonary embolus, Pneumonia, Other CENTRAL NERVOUS SYSTEM: CVA, Periperal neuropathy, Other GI: GERD, Other Heme/Onc: Cancer Psych: Depression Renal/: Chronic renal failure Endocrine: Diabetes, Hyperparathyroidism Past Surgical History Past Surgical History: Cholecystectomy, CABG, Tonsillectomy, Other Family History Family History: High Cholestrol, Hypertension, Kidney Disease Social History 1 pack per day ALCOHOL: none Drugs: Cocaine Lives: with Family Current Problem List Problem List Problems Medical Problems: (1) Hypertension Status: Chronic (2) Intractable pain Status: Acute Current Medications Current Medications Current Medications Sodium Chloride 1,000 ml @ 1,000 mls/hr 1X ONCE IV Last administered on 07/15/20at 17:42; Start 07/15/20 at 17:45; Stop 07/15/20 at 18:44; Status DC Insulin Human Regular (HumuLIN R VIAL) 10 unit 1X ONCE IV Last administered on 07/15/20at 18:46; Start 07/15/20 at 18:30; Stop 07/15/20 at 18:31; Status DC Oxycodone/ Acetaminophen (Percocet 10/325) 1 tab 1X ONCE PO Last administered on 07/15/20at 19:03; Start 07/15/20 at 19:00; Stop 07/15/20 at 19:01; Status DC Hydralazine HCl (Apresoline Inj) 10 mg 1X ONCE IVP ; Start 07/15/20 at 19:45; Stop 07/15/20 at 19:46; Status DC Hydralazine HCl (Apresoline Inj) 10 mg 1X ONCE IVP Last administered on 07/15/20 19:58; Start 07/15/20 at 20:00; Stop 07/15/20 at 20:01; Status DC Fentanyl Citrate (Fentanyl 2ml Vial) 50 mcg 1X ONCE IV Last administered on 07/15/20at 20:57; Start 07/15/20 at 21:00; Stop 07/15/20 at 21:01; Status DC Amlodipine Besylate (Norvasc) 10 mg DAILY PO Last administered on 07/16/20at 08:13; Start 07/16/20 at 09:00 Aspirin (Aspirin Chewable) 81 mg DAILY PO Last administered on 07/16/20 08:13; Start 07/16/20 at 09:00 Divalproex Sodium (Depakote) 1,000 mg BID PO Last administered on 07/16/20 08: 12; Start 07/16/20 at 09:00 Docusate Sodium (Colace) 100 mg DAILY PO Last administered on 07/16/20at 08:13; Start 07/16/20 at 09:00 Vitamin B Complex/ Vitamin C (Gissel-Irvin) 1 tab DAILY PO Last administered on 07/16/20at 08:10; Start 07/16/20 at 09:00 Gabapentin (Neurontin) 100 mg TID PO Last administered on 07/16/20at 08:14; Start 07/16/20 at 09:00 Hydralazine HCl (Apresoline) 25 mg BID PO Last administered on 07/16/20at 08:12; Start 07/16/20 at 09:00 Lisinopril (Prinivil) 20 mg DAILY PO Last administered on 07/16/20at 08:13; Start 07/16/20 at 09:00 Lorazepam (Ativan) 0.5 mg PRN Q4HRS PRN PO ANXIETY / AGITATION Last administered on 07/16/20at 00:56; Start 07/16/20 at 00:15 Lubiprostone (Amitiza) 24 mcg DAILY PO Last administered on 07/16/20at 08:11; Start 07/16/20 at 09:00 Nitroglycerin (Nitrostat) 0.4 mg PRN Q5MIN PRN SL CHEST PAIN; Start 07/16/20 at 00:15 Oxycodone/ Acetaminophen (Percocet 10/325) 1 tab QIDPRN PRN PO SEVERE PAIN 7-10 Last administered on 07/16/20at 11:50; Start 07/16/20 at 00:15 Ranolazine (Ranexa) 500 mg BID PO Last administered on 07/16/20at 08:11; Start 07/16/20 at 09:00 Sevelamer Carbonate (Renvela) 800 mg TIDWMEALS PO Last administered on 07/16/20at 11:47; Start 07/16/20 at 08:00 Carvedilol (Coreg) 12.5 mg BIDWMEALS PO Last administered on 07/16/20at 08:11; Start 07/16/20 at 08:00 Citalopram Hydrobromide (CeleXA) 40 mg QHS PO ; Start 07/16/20 at 21:00 Non-Formulary Medication (Insulin Aspart (Novolog)) PRN TID PRN SQ sliding scale; Start 07/16/20 at 00:15; Status UNV Insulin Glargine (Lantus Syringe) 42 unit QHS SQ ; Start 07/16/20 at 21:00 Ondansetron HCl (Zofran Odt) 4 mg PRN Q8HRS PRN PO NAUSEA/VOMITING; Start 07/16/20 at 00:45; Stop 07/16/20 at 00:38; Status DC Pantoprazole Sodium (Protonix) 40 mg DAILYAC PO Last administered on 07/16/20at 08:12; Start 07/16/20 at 07:30 Diclofenac Sodium (Voltaren) 1 christo BID TP ; Start 07/16/20 at 09:00 Fentanyl Citrate (Fentanyl 2ml Vial) 50 mcg PRN Q2HR PRN IVP SEVERE PAIN 7-10 Last administered on 07/16/20at 11:50; Start 07/16/20 at 00:30 Nicotine (Nicoderm Cq 21mg) 1 patch PRN DAILY PRN TD SMOKING CESSATION Last administered on 07/16/20at 00:49; Start 07/16/20 at 00:30 Insulin Human Lispro (HumaLOG) 0-9 UNITS TIDWMEALS SQ Last administered on 07/16/20at 11:55; Start 07/16/20 at 08:00 Dextrose (Dextrose 50%-Water Syringe) 12.5 gm PRN Q15MIN PRN IV SEE COMMENTS; Start 07/16/20 at 00:30 Ondansetron HCl (Zofran Odt) 4 mg PRN Q8HRS PRN PO NAUSEA/VOMITING; Start 07/16/20 at 00:45 Acetaminophen/ Hydrocodone Bitart (Lortab 5/325) 1 tab PRN Q4HRS PRN PO MILD PAIN 1-3; Start 07/16/20 at 12:30 Acetaminophen/ Hydrocodone Bitart (Lortab 5/325) 2 tab PRN Q4HRS PRN PO MODERATE PAIN, SEVERE PAIN; Start 07/16/20 at 12:30 Docusate Sodium (Colace) 100 mg BID PO ; Start 07/16/20 at 13:00 Heparin Sodium (Porcine) (Heparin Sodium) 5,000 unit Q12HR SQ ; Start 07/16/20 at 13:00 Active Scripts Active Gabapentin (Gabapentin) 100 Mg Capsule 100 Mg PO TID 30 Days [Diclofenac Sodium] 100 GM Gel..gram. 1 Christo TP BID 30 Days Reported Percocet 10-325 Mg Tablet (Oxycodone/Acetaminophen) 1 Each Tablet 1 Tab PO QIDPRN PRN MDD 4 Tablet(s) Tresiba (Insulin Degludec) 100 Unit/1 Ml Vial 42 Unit SQ HS Ranexa (Ranolazine) 500 Mg Tab.er.12h 500 Mg PO BID Renal-Irvin Tablet (Folic Acid/Vit Bcomp,C) 0.8 Mg Tablet 0.8 Mg PO DAILY Novolog (Insulin Aspart) 100 Unit/1 Ml Vial 0 SQ PRN TID PRN Ativan (Lorazepam) 1 Mg Tablet 0.5 Mg PO PRN Q4HRS PRN Lisinopril 20 Mg Tablet 20 Mg PO DAILY Zofran (Ondansetron Hcl) 4 Mg Tablet 1 Tab PO PRN Q4HRS PRN NITROGLYCERIN SubLingual (Nitroglycerin) 0.4 Mg Tab.subl 0.4 Mg SL PRN Q5MIN PRN Hydralazine Hcl 25 Mg Tablet 1 Tab PO BID Citalopram Hbr (Citalopram Hydrobromide) 40 Mg Tablet 40 Mg PO HS Protonix (Pantoprazole Sodium) 20 Mg Tablet.dr 40 Mg PO DAILY Docusate Sodium 100 Mg Capsule 1 Cap PO DAILY Divalproex Sodium 500 Mg Tablet.dr 2 Tab PO BID Aspirin 81 Mg Tab.chew 1 Tab PO DAILY Amitiza (Lubiprostone) 24 Mcg Capsule 1 Cap PO DAILY Norvasc (Amlodipine Besylate) 10 Mg Tablet 10 Mg PO DAILY Coreg (Carvedilol) 25 Mg Tablet 12.5 Mg PO BIDWMEALS Renvela (Sevelamer Carbonate) 800 Mg Tablet 800 Mg PO TIDWMEALS Allergies Allergies: Coded Allergies: hydromorphone (Verified Allergy, Severe, Anaphylaxis, 06/24/20) morphine ok ROS General: YES: Fatigue, Malaise PSYCHOLOGICAL ROS: YES: Anxiety Eyes: Yes Decreased vision HEENT: YES: Heacaches Respiratory: YES: Cough Cardiovascular: yes Chest Pain Genitourinary: YES Other (ANURIA) Musculoskeletal: Yes Muscular Weakness Neurological: Yes Dizziness, Yes Weakness Skin: Yes Dry Skin Physical Exam General: Alert, Oriented X3, Cooperative, No acute distress HEENT: Atraumatic, PERRLA Lungs: Clear to auscultation Heart: Regular rate, Normal S1, Normal S2 Abdomen: Normal bowel sounds, Soft, No tenderness Extremities: No clubbing, No cyanosis Skin: No breakdown Neuro: Normal speech, Cranial nerves 3-12 NL Psych/Mental Status: Mental status NL, Mood NL MUSCULOSKELETAL: No joint tenderness, No deformity Vitals VITALS Vital Signs Date Time Temp Pulse Resp B/P (MAP) Pulse Ox O2 Delivery O2 Flow Rate FiO2 07/16/20 13:00 95 Room Air 07/16/20 11:05 97.8 65 19 155/77 (103) 97.8 Labs Labs Laboratory Tests Test 07/15/20 17:33 07/15/20 18:11 07/15/20 18:43 07/15/20 19:13 White Blood Count 7.2 x10^3/uL (4.0-11.0) Red Blood Count 3.74 x10^6/uL (4.30-5.70) Hemoglobin 12.0 g/dL (13.0-17.5) Hematocrit 35.8 % (39.0-53.0) Mean Corpuscular Volume 96 fL (79-100) Mean Corpuscular Hemoglobin 32 pg (25-35) Mean Corpuscular Hemoglobin Concent 34 g/dL (31-37) Red Cell Distribution Width 13.7 % (11.5-14.5) Platelet Count 258 x10^3/uL (140-400) Neutrophils (%) (Auto) 68 % (31-73) Lymphocytes (%) (Auto) 20 % (24-48) Monocytes (%) (Auto) 10 % (0-9) Eosinophils (%) (Auto) 1 % (0-3) Basophils (%) (Auto) 1 % (0-3) Neutrophils # (Auto) 4.9 x10^3/uL (1.8-7.7) Lymphocytes # (Auto) 1.4 x10^3/uL (1.0-4.8) Monocytes # (Auto) 0.7 x10^3/uL (0.0-1.1) Eosinophils # (Auto) 0.1 x10^3/uL (0.0-0.7) Basophils # (Auto) 0.1 x10^3/uL (0.0-0.2) Sodium Level 122 mmol/L (136-145) Potassium Level 5.3 mmol/L (3.5-5.1) Chloride Level 88 mmol/L (98-107) Carbon Dioxide Level 24 mmol/L (21-32) Anion Gap 10 (6-14) Blood Urea Nitrogen 52 mg/dL (8-26) Creatinine 6.8 mg/dL (0.7-1.3) Estimated GFR (Cockcroft-Gault) 8.6 BUN/Creatinine Ratio 8 (6-20) Glucose Level 726 mg/dL (70-99) Calcium Level 8.4 mg/dL (8.5-10.1) Magnesium Level 1.8 mg/dL (1.8-2.4) Total Bilirubin 0.5 mg/dL (0.2-1.0) Aspartate Amino Transf (AST/SGOT) 13 U/L (15-37) Alanine Aminotransferase (ALT/SGPT) 15 U/L (16-63) Alkaline Phosphatase 155 U/L (46-116) Total Protein 7.5 g/dL (6.4-8.2) Albumin 3.2 g/dL (3.4-5.0) Albumin/Globulin Ratio 0.7 (1.0-1.7) O2 Saturation 96 % (92-99) Arterial Blood pH 7.40 (7.35-7.45) Arterial Blood pCO2 at Patient Temp 34 mmHg (35-46) Arterial Blood pO2 at Patient Temp 89 mmHg (75-108) Arterial Blood HCO3 21 mmol/L (21-28) Arterial Blood Base Excess -3 mmol/L (-3-3) Oxyhemoglobin 93.4 % Methemoglobin 0.4 % (0.0-1.9) Carbon Monoxide, Quantitative 2.2 % (0.0-1.9) FiO2 Ra 21% Urine Collection Type Void Urine Color Yellow Urine Clarity Clear Urine pH 6.5 (<5.0-8.0) Urine Specific [place] 1.015 (1.000-1.030) Urine Protein >=300 mg/dL (NEG-TRACE) Urine Glucose (UA) >=1000 mg/dL (NEG) Urine Ketones (Stick) Negative mg/dL (NEG) Urine Blood Negative (NEG) Urine Nitrite Negative (NEG) Urine Bilirubin Negative (NEG) Urine Urobilinogen Dipstick 0.2 mg/dL (0.2 mg/dL) Urine Leukocyte Esterase Negative (NEG) Urine RBC 1-2 /HPF (0-2) Urine WBC 0 /HPF (0-4) Urine Squamous Epithelial Cells Few /LPF Urine Bacteria 0 /HPF (0-FEW) Urine Mucus Slight /LPF Glucose (Fingerstick) 506 mg/dL (70-99) Test 07/15/20 20:48 07/16/20 07:57 07/16/20 11:38 Glucose (Fingerstick) 350 mg/dL (70-99) 210 mg/dL (70-99) 333 mg/dL (70-99) Laboratory Tests Test 07/15/20 17:33 07/15/20 18:11 07/15/20 18:43 07/15/20 19:13 White Blood Count 7.2 x10^3/uL (4.0-11.0) Red Blood Count 3.74 x10^6/uL (4.30-5.70) Hemoglobin 12.0 g/dL (13.0-17.5) Hematocrit 35.8 % (39.0-53.0) Mean Corpuscular Volume 96 fL (79-100) Mean Corpuscular Hemoglobin 32 pg (25-35) Mean Corpuscular Hemoglobin Concent 34 g/dL (31-37) Red Cell Distribution Width 13.7 % (11.5-14.5) Platelet Count 258 x10^3/uL (140-400) Neutrophils (%) (Auto) 68 % (31-73) Lymphocytes (%) (Auto) 20 % (24-48) Monocytes (%) (Auto) 10 % (0-9) Eosinophils (%) (Auto) 1 % (0-3) Basophils (%) (Auto) 1 % (0-3) Neutrophils # (Auto) 4.9 x10^3/uL (1.8-7.7) Lymphocytes # (Auto) 1.4 x10^3/uL (1.0-4.8) Monocytes # (Auto) 0.7 x10^3/uL (0.0-1.1) Eosinophils # (Auto) 0.1 x10^3/uL (0.0-0.7) Basophils # (Auto) 0.1 x10^3/uL (0.0-0.2) Sodium Level 122 mmol/L (136-145) Potassium Level 5.3 mmol/L (3.5-5.1) Chloride Level 88 mmol/L (98-107) Carbon Dioxide Level 24 mmol/L (21-32) Anion Gap 10 (6-14) Blood Urea Nitrogen 52 mg/dL (8-26) Creatinine 6.8 mg/dL (0.7-1.3) Estimated GFR (Cockcroft-Gault) 8.6 BUN/Creatinine Ratio 8 (6-20) Glucose Level 726 mg/dL (70-99) Calcium Level 8.4 mg/dL (8.5-10.1) Magnesium Level 1.8 mg/dL (1.8-2.4) Total Bilirubin 0.5 mg/dL (0.2-1.0) Aspartate Amino Transf (AST/SGOT) 13 U/L (15-37) Alanine Aminotransferase (ALT/SGPT) 15 U/L (16-63) Alkaline Phosphatase 155 U/L (46-116) Total Protein 7.5 g/dL (6.4-8.2) Albumin 3.2 g/dL (3.4-5.0) Albumin/Globulin Ratio 0.7 (1.0-1.7) O2 Saturation 96 % (92-99) Arterial Blood pH 7.40 (7.35-7.45) Arterial Blood pCO2 at Patient Temp 34 mmHg (35-46) Arterial Blood pO2 at Patient Temp 89 mmHg (75-108) Arterial Blood HCO3 21 mmol/L (21-28) Arterial Blood Base Excess -3 mmol/L (-3-3) Oxyhemoglobin 93.4 % Methemoglobin 0.4 % (0.0-1.9) Carbon Monoxide, Quantitative 2.2 % (0.0-1.9) FiO2 Ra 21% Urine Collection Type Void Urine Color Yellow Urine Clarity Clear Urine pH 6.5 (<5.0-8.0) Urine Specific [place] 1.015 (1.000-1.030) Urine Protein >=300 mg/dL (NEG-TRACE) Urine Glucose (UA) >=1000 mg/dL (NEG) Urine Ketones (Stick) Negative mg/dL (NEG) Urine Blood Negative (NEG) Urine Nitrite Negative (NEG) Urine Bilirubin Negative (NEG) Urine Urobilinogen Dipstick 0.2 mg/dL (0.2 mg/dL) Urine Leukocyte Esterase Negative (NEG) Urine RBC 1-2 /HPF (0-2) Urine WBC 0 /HPF (0-4) Urine Squamous Epithelial Cells Few /LPF Urine Bacteria 0 /HPF (0-FEW) Urine Mucus Slight /LPF Glucose (Fingerstick) 506 mg/dL (70-99) Test 07/15/20 20:48 07/16/20 07:57 07/16/20 11:38 Glucose (Fingerstick) 350 mg/dL (70-99) 210 mg/dL (70-99) 333 mg/dL (70-99) Assessment/Plan Assessment/Plan IMP HYPERGLYCEMIA HYPERKALEMIA HYPONATREMIA NON COMPLIANCE ESRD-MWF ANEMIA DM II HTN PLAN RESUME HOME MEDS CORRECT BG HD TODAY UF TO DW ENC COMPLIANCE BO DOHERTY MD Jul 16, 2020 13:32
--- NOTE | 2020-07-16 14:52 | NUR ---
ANA following. Spoke with RN and reviewed chart. Pt from [facility] with and [facility]. Pt on 2l 02, renal diet, and IV pain medication. ANA consulted to complete advanced directive for HC. ANA met with pt who listed his primary agent as his Roula Bedolla ([phone]) and is alternate agent as his mother Ophelia Bedolla ([phone]). AD for HC notarized and a copy was placed on the chart and the original was given to the patient. Pt has home 02 and plans to resume HH from [facility], , (fax). Patient Choice of Vendor form completed. Pt does out-patient dialysis on MWF at [facility], , (fax). ANA following. Addendum: 07/16/20 at 1530 by ROCIO PEREZ Phone call from Devonte from [facility] and they will not take this pt back per hx of noncompliance with diabetes management and refusal of therapy. Referral for HH sent to [facility] at request of patient. ANA updated patient choice of vendor form.
[2020-07-16] MEDS ORDERED: DIALYSIS PATIENT. MC PRN ×2 (15:30)
[2020-07-16 19:00] VITALS: BP 147/73
[2020-07-16] MEDS: LORazepam 0.5 MG TABLET PO PRN (20:40)
[2020-07-16] MEDS: CITALOPRAM 20 MG TABLET. PO SCH (20:40)
[2020-07-16] MEDS: INSULIN GLARGINE SYRINGE. SQ SCH (20:48)
[2020-07-16 22:31] VITALS: BP 179/93
[2020-07-17] MEDS: fentaNYL PF VIAL 100 MCG/2 ML VIAL IVP PRN ×9 (02:05→23:17)
[2020-07-17 03:00] VITALS: BP 180/81
[2020-07-17 07:00] VITALS: BP 181/80
[2020-07-17] MEDS: GABAPENTIN 100 MG CAPSULE. PO SCH ×3 (08:18→20:43)
[2020-07-17] MEDS: SEVELAMER CARBONATE 800 MG TABLET. PO SCH ×3 (08:18→17:10)
[2020-07-17] MEDS: LISINOPRIL 20 MG TABLET PO SCH (08:19)
[2020-07-17] MEDS: RANOLAZINE 500 MG TAB.ER.12H PO SCH ×2 (08:19→20:57)
[2020-07-17] MEDS: FOLIC/VIT B COMP W-C (RENAL) TABLET. PO SCH (08:19)
[2020-07-17] MEDS: ASPIRIN CHEWABLE 81 MG TABLET. PO SCH (08:19)
[2020-07-17] MEDS: DOCUSATE SODIUM 100 MG CAPSULE. PO SCH ×2 (08:19→20:42)
[2020-07-17] MEDS: LUBIPROSTONE 24 MCG CAPSULE PO SCH (08:19)
[2020-07-17] MEDS: amLODIPine BESYLATE 10 MG TABLET PO SCH (08:19)
[2020-07-17] MEDS: DIVALPROEX DELAYED RELEASE 500 MG TABLET.DR. PO SCH ×2 (08:20→20:44)
[2020-07-17] MEDS: PANTOPRAZOLE 40 MG TABLET.DR. PO SCH (08:20)
[2020-07-17] MEDS: CARVEDILOL 12.5 MG TABLET. PO SCH ×2 (08:20→17:10)
[2020-07-17] MEDS: hydrALAZINE 25 MG TABLET PO SCH ×3 (08:20→20:43)
[2020-07-17] MEDS: HEPARIN for SUB-Q USE 5,000 UNIT/ML VIAL. SQ SCH ×2 (08:26→20:51)
[2020-07-17] MEDS: INSULIN LISPRO 300 UNITS/3 ML VIAL. SQ SCH ×3 (08:26→17:00)
[2020-07-17] MEDS: DICLOFENAC SODIUM 1% TOPICAL GEL 100GM TUBE. TP SCH ×2 (09:00→20:42)
[2020-07-17 10:08] LABS: BASO % 1 % (0-3); EOS # 0.1 x10^3/uL (0.0-0.7); EOS % 2 % (0-3); HEMATOCRIT 31.1 % (39.0-53.0); LYMPH # 1.8 x10^3/uL (1.0-4.8); LYMPH % 23 % (24-48); MEAN CORPUSCULAR HEMOGLOBIN 32 pg (25-35); MEAN CORPUSCULAR HGB CONC 35 g/dL (31-37); MEAN CORPUSCULAR VOLUME 92 fL (79-100); MONO # 1.1 x10^3/uL (0.0-1.1); MONO % 14 % (0-9); NEUT # 4.7 x10^3/uL (1.8-7.7); NEUT % 61 % (31-73); PLATELET COUNT 189 x10^3/uL (140-400); RED BLOOD COUNT 3.38 x10^6/uL (4.30-5.70); RED CELL DISTRIBUTION WIDTH 13.6 % (11.5-14.5); WHITE BLOOD COUNT 7.7 x10^3/uL (4.0-11.0)
[2020-07-17 10:25] LABS: CALCIUM 8.4 mg/dL (8.5-10.1); CREATININE 5.7 mg/dL (0.7-1.3); GFR 10.5; POTASSIUM 3.7 mmol/L (3.5-5.1)
[2020-07-17 10:45] VITALS: BP 177/77
--- NOTE | 2020-07-17 12:33 | PDOC ---
Renal-Progress Notes Subjective Notes Notes NO NEW COMPLAINTS History of Present Illness Hx of present illness STABLE Vitals Vitals Vital Signs Date Time Temp Pulse Resp B/P (MAP) Pulse Ox O2 Delivery O2 Flow Rate FiO2 07/17/20 12:14 93 Room Air 2.0 07/17/20 10:45 98.0 79 18 177/77 (110) 98.0 Weight Weight [ ] I.O. Intake and Output Intake and Output 07/17/20 07:00 Intake Total 250 ml Output Total 400 ml Balance -150 ml Intake Oral 250 ml Output Urine Total 400 ml # Voids 5 # Bowel Movements 1 Labs Labs Laboratory Tests Test 07/16/20 17:27 07/16/20 20:25 07/17/20 07:10 07/17/20 09:50 Glucose (Fingerstick) 244 mg/dL (70-99) 314 mg/dL (70-99) 181 mg/dL (70-99) White Blood Count 7.7 x10^3/uL (4.0-11.0) Red Blood Count 3.38 x10^6/uL (4.30-5.70) Hemoglobin 11.0 g/dL (13.0-17.5) Hematocrit 31.1 % (39.0-53.0) Mean Corpuscular Volume 92 fL (79-100) Mean Corpuscular Hemoglobin 32 pg (25-35) Mean Corpuscular Hemoglobin Concent 35 g/dL (31-37) Red Cell Distribution Width 13.6 % (11.5-14.5) Platelet Count 189 x10^3/uL (140-400) Neutrophils (%) (Auto) 61 % (31-73) Lymphocytes (%) (Auto) 23 % (24-48) Monocytes (%) (Auto) 14 % (0-9) Eosinophils (%) (Auto) 2 % (0-3) Basophils (%) (Auto) 1 % (0-3) Neutrophils # (Auto) 4.7 x10^3/uL (1.8-7.7) Lymphocytes # (Auto) 1.8 x10^3/uL (1.0-4.8) Monocytes # (Auto) 1.1 x10^3/uL (0.0-1.1) Eosinophils # (Auto) 0.1 x10^3/uL (0.0-0.7) Basophils # (Auto) 0.0 x10^3/uL (0.0-0.2) Sodium Level 127 mmol/L (136-145) Potassium Level 3.7 mmol/L (3.5-5.1) Chloride Level 92 mmol/L (98-107) Carbon Dioxide Level 28 mmol/L (21-32) Anion Gap 7 (6-14) Blood Urea Nitrogen 37 mg/dL (8-26) Creatinine 5.7 mg/dL (0.7-1.3) Estimated GFR (Cockcroft-Gault) 10.5 Glucose Level 255 mg/dL (70-99) Calcium Level 8.4 mg/dL (8.5-10.1) Test 07/17/20 11:00 Glucose (Fingerstick) 237 mg/dL (70-99) Review of Systems Constitutional: yes: weakness, alert, oriented Ears/Nose/Throat: Yes: no symptom reported Eyes: Yes: no symptom reported Pulmonary: Yes no symptom reported Cardiovascular: Yes no symptom reported Gastrointestional: Yes: no symptom reported Genitourinary: Yes: no symptom reported Musculoskeletal: Yes: no symptom reported Skin: Yes no symptom reported Psychiatric/Neurological: Yes: no symptom reported Endocrine: Yes: no symptom reported Physical Exam General Appearance: no apparent distress Skin: warm Respiratory: decreased breath sounds Heart: S1S2 Abdomen: soft, bowel sounds present Genitourinary: bladder flat Extremities: pulses present Neurology: alert, oriented Assessment Assessment IMP HYPERGLYCEMIA-BETTER HYPERKALEMIA-BETTER HYPONATREMIA-IMPROVING NON COMPLIANCE ESRD-MWF ANEMIA DM II HTN PLAN RESUME HOME MEDS CORRECT BG HD TOMORROW ENC COMPLIANCE BO DOHERTY MD Jul 17, 2020 12:33
[2020-07-17 15:00] VITALS: BP 169/74
--- NOTE | 2020-07-17 15:12 | PDOC ---
[employer] PROGRESS NOTE Date of Service DOS: DATE: 07/17/20 TIME: 15:06 Chief Complaint Chief Complaint Hyperglycemia, hypertension, intractable back pain History of Present Illness History of Present Illness Patient reports chronic back pain since a fall he suffered several years ago, with pins and rods in his hips. We discussed judicious use of pain medication but also not wanting the patient to be uncomfortable. Recommended pain management as outpatient. Will adjust oxycodone to include extended release. Hemodialysis tomorrow. Vitals/I&O Vitals/I&O: Vital Signs Date Time Temp Pulse Resp B/P (MAP) Pulse Ox O2 Delivery O2 Flow Rate FiO2 07/17/20 14:04 93 Room Air 2.0 07/17/20 10:45 98.0 79 18 177/77 (110) 98.0 I & O 07/16/20 07/16/20 07/17/20 15:00 23:00 07:00 Intake Total 250 ml Output Total 300 ml 100 ml Balance -300 ml 150 ml Physical Exam General: Alert, Oriented X3, Cooperative, No acute distress Heart: Regular rate, Normal S1, Normal S2 Lungs: Clear Abdomen: Normal bowel sounds, Soft, No tenderness Extremities: No clubbing, No cyanosis Skin: No breakdown Labs Labs: Laboratory Tests Test 07/16/20 17:27 07/16/20 20:25 07/17/20 07:10 07/17/20 09:50 Glucose (Fingerstick) 244 mg/dL (70-99) 314 mg/dL (70-99) 181 mg/dL (70-99) White Blood Count 7.7 x10^3/uL (4.0-11.0) Red Blood Count 3.38 x10^6/uL (4.30-5.70) Hemoglobin 11.0 g/dL (13.0-17.5) Hematocrit 31.1 % (39.0-53.0) Mean Corpuscular Volume 92 fL (79-100) Mean Corpuscular Hemoglobin 32 pg (25-35) Mean Corpuscular Hemoglobin Concent 35 g/dL (31-37) Red Cell Distribution Width 13.6 % (11.5-14.5) Platelet Count 189 x10^3/uL (140-400) Neutrophils (%) (Auto) 61 % (31-73) Lymphocytes (%) (Auto) 23 % (24-48) Monocytes (%) (Auto) 14 % (0-9) Eosinophils (%) (Auto) 2 % (0-3) Basophils (%) (Auto) 1 % (0-3) Neutrophils # (Auto) 4.7 x10^3/uL (1.8-7.7) Lymphocytes # (Auto) 1.8 x10^3/uL (1.0-4.8) Monocytes # (Auto) 1.1 x10^3/uL (0.0-1.1) Eosinophils # (Auto) 0.1 x10^3/uL (0.0-0.7) Basophils # (Auto) 0.0 x10^3/uL (0.0-0.2) Sodium Level 127 mmol/L (136-145) Potassium Level 3.7 mmol/L (3.5-5.1) Chloride Level 92 mmol/L (98-107) Carbon Dioxide Level 28 mmol/L (21-32) Anion Gap 7 (6-14) Blood Urea Nitrogen 37 mg/dL (8-26) Creatinine 5.7 mg/dL (0.7-1.3) Estimated GFR (Cockcroft-Gault) 10.5 Glucose Level 255 mg/dL (70-99) Calcium Level 8.4 mg/dL (8.5-10.1) Test 07/17/20 11:00 Glucose (Fingerstick) 237 mg/dL (70-99) Assessment and Plan Assessmemt and Plan Problems Medical Problems: (1) Hypertension Status: Chronic (2) Intractable pain Status: Acute Comment Review of Relevant I have reviewed the following items nelda (where applicable) has been applied. Medications: Current Medications Medications (Trade) Dose Ordered Sig/Brittani Route PRN Reason Start Time Stop Time Status Last Admin Dose Admin Citalopram Hydrobromide (CeleXA) 40 mg QHS PO 07/16/20 21:00 07/16/20 20:40 Insulin Glargine (Lantus Syringe) 42 unit QHS SQ 07/16/20 21:00 07/16/20 20:48 Lorazepam (Ativan) 0.5 mg PRN Q4HRS PRN PO ANXIETY / AGITATION 07/16/20 16:15 07/16/20 20:40 Justifications for Admission Other Justification MO NAM MD Jul 17, 2020 15:12
--- NOTE | 2020-07-17 16:15 | NUR ---
Wound Care: Attempted to see patient regarding wound care. Patient off unit at this time for MRI. Will see patient tomorrow 07/18/20. Addendum: 07/17/20 at 1702 by CATHY SCOTT RN Wrong wound care patient. See new note.
--- NOTE | 2020-07-17 16:20 | NUR ---
Wound/Ostomy Care Wound Type/Assessment: Patient seen per wound care consult for surgical dehisence of removal of PD to the abdomen. Wound cleansed and assessed. Treatment Recommendations/Plan: Recommendations for Hydrofera Blue (in room) and cover with foam dressing. Change every 3 days. Education provided: Patient and patient's educated on dressing. Patient is diabetic and has healed wound to right foot, therefore Patient also given information regarding diabetic footwear as he states he wasn't aware insurance would cover them and he didn't want to get another wound on his foot like he had years ago. Patient and both verbalized understanding. Offloading surface/device: N/A Recommended Referrals/Tests: N/A Discharge Recommendations for dressings: Continue current treatment. Dressing change instructions left in room as well as extra Hydrofera Blue for next dressing change. Patient and both comfortable with dressing changes. Bed lowered and call light in reach. Will follow patient regarding wound care.
--- NOTE | 2020-07-17 16:38 | NUR ---
SW following. Spoke with RN and reviewed chart. Discharge plan remains home with and [facility]. Update to Kaylin with [facility].
[2020-07-17] MEDS: LORazepam 0.5 MG TABLET PO PRN (18:54)
[2020-07-17 19:00] VITALS: BP 164/62
[2020-07-17] MEDS: CITALOPRAM 20 MG TABLET. PO SCH (20:42)
[2020-07-17] MEDS: oxyCODONE ER 10 MG TAB.ER.12H PO SCH (20:44)
[2020-07-17] MEDS: INSULIN GLARGINE SYRINGE. SQ SCH (20:53)
[2020-07-17 23:00] VITALS: BP 199/82
[2020-07-18] MEDS: fentaNYL PF VIAL 100 MCG/2 ML VIAL IVP PRN ×4 (02:28→11:10)
[2020-07-18 03:00] VITALS: BP 189/75
[2020-07-18 07:00] VITALS: BP 192/88
[2020-07-18] MEDS ORDERED: IV NORMAL SALINE 1000ML BAG 1,000 ML IV PRN ×2 (08:00)
[2020-07-18] MEDS ORDERED: diphenhydrAMINE 50 MG/ML VIAL IV PRN ×2 (08:00)
[2020-07-18] MEDS: INSULIN LISPRO 300 UNITS/3 ML VIAL. SQ SCH ×2 (08:00→12:00)
[2020-07-18] MEDS: oxyCODONE ER 10 MG TAB.ER.12H PO SCH (08:05)
[2020-07-18] MEDS: DICLOFENAC SODIUM 1% TOPICAL GEL 100GM TUBE. TP SCH (09:00)
[2020-07-18] MEDS ORDERED: DIALYSIS PATIENT. MC PRN ×2 (09:15)
[2020-07-18] MEDS: oxyCODONE/APAP 10/325 1 TAB TABLET PO PRN ×2 (09:42→15:15)
[2020-07-18 09:46] LABS: BASO % 1 % (0-3); EOS # 0.1 x10^3/uL (0.0-0.7); EOS % 2 % (0-3); HEMATOCRIT 30.7 % (39.0-53.0); HEMOGLOBIN 10.6 g/dL (13.0-17.5); LYMPH # 1.6 x10^3/uL (1.0-4.8); LYMPH % 22 % (24-48); MEAN CORPUSCULAR HEMOGLOBIN 32 pg (25-35); MEAN CORPUSCULAR HGB CONC 35 g/dL (31-37); MEAN CORPUSCULAR VOLUME 93 fL (79-100); MONO # 0.6 x10^3/uL (0.0-1.1); MONO % 9 % (0-9); NEUT # 4.7 x10^3/uL (1.8-7.7); NEUT % 67 % (31-73); PLATELET COUNT 182 x10^3/uL (140-400); RED BLOOD COUNT 3.32 x10^6/uL (4.30-5.70); RED CELL DISTRIBUTION WIDTH 13.8 % (11.5-14.5)
[2020-07-18 09:52] LABS: CALCIUM 8.2 mg/dL (8.5-10.1); CREATININE 5.1 mg/dL (0.7-1.3); POTASSIUM 3.6 mmol/L (3.5-5.1)
[2020-07-18] MEDS: SEVELAMER CARBONATE 800 MG TABLET. PO SCH ×2 (12:00→13:01)
--- NOTE | 2020-07-18 12:10 | PDOC ---
Renal-Progress Notes Subjective Notes Notes WANTS PAIN MEDS FOR HIP AND BACK PAIN History of Present Illness Hx of present illness STABLE Vitals Vitals Vital Signs Date Time Temp Pulse Resp B/P (MAP) Pulse Ox O2 Delivery O2 Flow Rate FiO2 07/18/20 11:10 20 94 Room Air 07/18/20 07:00 98.0 86 192/88 (122) 98.0 07/17/20 14:04 2.0 Weight Weight [ ] I.O. Intake and Output Intake and Output 07/18/20 07:00 Intake Total 1200 ml Output Total 1800 ml Balance -600 ml Intake Oral 1200 ml Output Urine Total 1800 ml # Voids 1 # Bowel Movements 1 Labs Labs Laboratory Tests Test 07/17/20 16:14 07/17/20 20:18 07/18/20 06:56 07/18/20 09:09 Glucose (Fingerstick) 125 mg/dL (70-99) 172 mg/dL (70-99) 180 mg/dL (70-99) White Blood Count 7.0 x10^3/uL (4.0-11.0) Red Blood Count 3.32 x10^6/uL (4.30-5.70) Hemoglobin 10.6 g/dL (13.0-17.5) Hematocrit 30.7 % (39.0-53.0) Mean Corpuscular Volume 93 fL (79-100) Mean Corpuscular Hemoglobin 32 pg (25-35) Mean Corpuscular Hemoglobin Concent 35 g/dL (31-37) Red Cell Distribution Width 13.8 % (11.5-14.5) Platelet Count 182 x10^3/uL (140-400) Neutrophils (%) (Auto) 67 % (31-73) Lymphocytes (%) (Auto) 22 % (24-48) Monocytes (%) (Auto) 9 % (0-9) Eosinophils (%) (Auto) 2 % (0-3) Basophils (%) (Auto) 1 % (0-3) Neutrophils # (Auto) 4.7 x10^3/uL (1.8-7.7) Lymphocytes # (Auto) 1.6 x10^3/uL (1.0-4.8) Monocytes # (Auto) 0.6 x10^3/uL (0.0-1.1) Eosinophils # (Auto) 0.1 x10^3/uL (0.0-0.7) Basophils # (Auto) 0.0 x10^3/uL (0.0-0.2) Sodium Level 131 mmol/L (136-145) Potassium Level 3.6 mmol/L (3.5-5.1) Chloride Level 94 mmol/L (98-107) Carbon Dioxide Level 28 mmol/L (21-32) Anion Gap 9 (6-14) Blood Urea Nitrogen 37 mg/dL (8-26) Creatinine 5.1 mg/dL (0.7-1.3) Estimated GFR (Cockcroft-Gault) 12.0 Glucose Level 152 mg/dL (70-99) Calcium Level 8.2 mg/dL (8.5-10.1) Hepatitis B Surface Antigen Nonreactive (Nonreactive) Hepatitis B Surface Antibody Reactive Review of Systems Constitutional: yes: weakness, alert, oriented Ears/Nose/Throat: Yes: no symptom reported Eyes: Yes: no symptom reported Pulmonary: Yes no symptom reported Cardiovascular: Yes no symptom reported Gastrointestional: Yes: no symptom reported Genitourinary: Yes: no symptom reported Musculoskeletal: Yes: no symptom reported Skin: Yes no symptom reported Psychiatric/Neurological: Yes: no symptom reported Endocrine: Yes: no symptom reported Physical Exam General Appearance: no apparent distress Skin: warm Respiratory: decreased breath sounds Heart: S1S2 Abdomen: soft, bowel sounds present Genitourinary: bladder flat Extremities: pulses present Neurology: alert, oriented Assessment Assessment IMP HYPERGLYCEMIA-BETTER HYPERKALEMIA-BETTER HYPONATREMIA-IMPROVING NON COMPLIANCE ESRD-MWF ANEMIA DM II HTN PLAN RESUME HOME MEDS CORRECT BG HD TODAY UF TO DW D/C SOON ENC COMPLIANCE BO DOHERTY MD Jul 18, 2020 12:10
[2020-07-18] MEDS: FOLIC/VIT B COMP W-C (RENAL) TABLET. PO SCH (12:56)
[2020-07-18] MEDS: RANOLAZINE 500 MG TAB.ER.12H PO SCH (12:56)
[2020-07-18] MEDS: LISINOPRIL 20 MG TABLET PO SCH (12:57)
[2020-07-18] MEDS: amLODIPine BESYLATE 10 MG TABLET PO SCH (12:58)
[2020-07-18] MEDS: GABAPENTIN 100 MG CAPSULE. PO SCH ×2 (12:59→15:12)
[2020-07-18] MEDS: DIVALPROEX DELAYED RELEASE 500 MG TABLET.DR. PO SCH (12:59)
[2020-07-18] MEDS: hydrALAZINE 25 MG TABLET PO SCH (13:00)
[2020-07-18] MEDS: LUBIPROSTONE 24 MCG CAPSULE PO SCH (13:00)
[2020-07-18] MEDS: DOCUSATE SODIUM 100 MG CAPSULE. PO SCH (13:00)
[2020-07-18] MEDS: ASPIRIN CHEWABLE 81 MG TABLET. PO SCH (13:00)
[2020-07-18] MEDS: CARVEDILOL 12.5 MG TABLET. PO SCH (13:01)
[2020-07-18] MEDS: PANTOPRAZOLE 40 MG TABLET.DR. PO SCH (13:01)
[2020-07-18] MEDS: HEPARIN for SUB-Q USE 5,000 UNIT/ML VIAL. SQ SCH (13:06)
--- NOTE | 2020-07-18 14:54 | NUR ---
ANA following. Spoke with RN and reviewed chart. Pt will likely discharge home today, 07/18 with his and [facility]. Pt has home 02 and will resume out-patient dialysis. Update to Kaylin with [facility]. ANA awaiting discharge orders. ANA to continue following. Addendum: 07/18/20 at 1643 by ROCIO PEREZ Discharge orders obtained. ANA phoned and faxed to [facility]. No further SW needs.
[2020-07-18 15:00] VITALS: BP 144/67
--- NOTE | 2020-07-18 15:18 | CARD ---
MR#: [id number] Date of Study: 07/18/2020 Ordering Physician: MO NAM, Referring Physician: MO NAM Tech: Augusta Rey RDCS APPROVED REPORT EXAM: Two-dimensional and M-mode echocardiogram with Doppler and color Doppler. Other Information Quality : Good INDICATION Cardiac Disease: CAD Falls per Dr. Nam, ESRD RISK FACTORS Hyperlipidemia 2D DIMENSIONS RVDd3.5 (2.9-3.5cm)Left Atrium(2D)5.2 (1.6-4.0cm) IVSd1.5 (0.7-1.1cm)Aortic Root(2D)3.6 (2.0-3.7cm) LVDd5.1 (3.9-5.9cm)LVOT Diameter2.1 (1.8-2.4cm) PWd1.3 (0.7-1.1cm)LVDs3.9 (2.5-4.0cm) FS (%) 23.6 %SV59.3 ml LVEF(%)50.0 (>50%) Aortic Valve AoV Peak Rivera.167.8cm/Vivian Peak GR.11.3mmHg LVOT Peak Rivera.155.6cm/sAVA (VMAX)3.35cm2 Mitral Valve MV E Qjamczbb90.3cm/sMV DECEL [id number] MV A Ziofzhnl638.3cm/sE/A Ratio0.7 Tricuspid Valve TR P. Sigctkwv441zb/sRAP ADMJDJPB6azGh TR Peak Gr.14ipSeZQGV66fxHx Pulmonary Vein S1 Kqfbkejq50.9cm/sD2 Lqntezqr68.6cm/s LEFT VENTRICLE The left ventricle is normal size. There is mild concentric left ventricular hypertrophy. The left ve ntricular systolic function is normal. The Ejection Fraction is 55-60%. There is normal LV segmental wall motion. Transmitral Doppler flow pattern is Grade I-abnormal relaxation pattern. RIGHT VENTRICLE The right ventricle is normal size. The right ventricular systolic function is normal. ATRIA The left atrium is moderately dilated. The right atrium is mildly dilated. The interatrial septum is intact with no evidence for an atrial septal defect or patent foramen ovale as noted on 2-D or Dopple r imaging. AORTIC VALVE The aortic valve is calcified but opens well. Doppler and Color Flow revealed no significant aortic r egurgitation. There is no significant aortic valvular stenosis. MITRAL VALVE The mitral valve is normal in structure and function. Mitral annular calcification is mild. There is no evidence of mitral valve prolapse. There is no mitral valve stenosis. Doppler and Color-flow revea led trace mitral regurgitation. TRICUSPID VALVE The tricuspid valve is normal in structure and function. Doppler and Color Flow revealed trace tricus pid regurgitation. There is mild pulmonary hypertension. The PA pressure was estimated at 38 mmHg. Th ere is no tricuspid valve stenosis. PULMONIC VALVE The pulmonic valve is not well visualized. Doppler and Color Flow revealed no pulmonic valvular regur gitation. There is no pulmonic valvular stenosis. GREAT VESSELS The aortic root is normal in size. The ascending aorta is normal in size. The IVC was not visualized. PERICARDIAL EFFUSION There is no evidence of significant pericardial effusion. Critical Notification Critical Value: No <Conclusion> The left ventricular systolic function is normal. The Ejection Fraction is 55-60%. There is normal LV segmental wall motion. Transmitral Doppler flow pattern is Grade I-abnormal relaxation pattern. Trace mitral regurgitation. Trace tricuspid regurgitation. The PA pressure was estimated at 38 mmHg. There is no evidence of significant pericardial effusion. Signed by : Jose Lara, Electronically Approved : 07/18/2020 15:18:18
--- NOTE | 2020-07-18 16:18 | PDOC ---
[employer] PROGRESS NOTE Date of Service DOS: DATE: 07/18/20 TIME: 16:16 Chief Complaint Chief Complaint Hyperglycemia, hypertension, intractable back pain History of Present Illness History of Present Illness Patient evaluated bedside. He is resting comfortably. States his back pain is improving, and not ready to go home. Will discharge with extended release oxycodone and home health. Vitals/I&O Vitals/I&O: Vital Signs Date Time Temp Pulse Resp B/P (MAP) Pulse Ox O2 Delivery O2 Flow Rate FiO2 07/18/20 15:15 20 94 Room Air 07/18/20 15:00 98.2 66 144/67 (92) 98.2 07/17/20 14:04 2.0 I & O 07/17/20 07/17/20 07/18/20 15:00 23:00 07:00 Intake Total 600 ml 600 ml Output Total 200 ml 1100 ml 500 ml Balance 400 ml -500 ml -500 ml Physical Exam General: Alert, Oriented X3, Cooperative, No acute distress Heart: Regular rate, Normal S1, Normal S2 Lungs: Clear Abdomen: Normal bowel sounds, Soft, No tenderness Extremities: No clubbing, No cyanosis Skin: No breakdown Labs Labs: Laboratory Tests Test 07/17/20 20:18 07/18/20 06:56 07/18/20 09:09 07/18/20 12:17 Glucose (Fingerstick) 172 mg/dL (70-99) 180 mg/dL (70-99) 132 mg/dL (70-99) White Blood Count 7.0 x10^3/uL (4.0-11.0) Red Blood Count 3.32 x10^6/uL (4.30-5.70) Hemoglobin 10.6 g/dL (13.0-17.5) Hematocrit 30.7 % (39.0-53.0) Mean Corpuscular Volume 93 fL (79-100) Mean Corpuscular Hemoglobin 32 pg (25-35) Mean Corpuscular Hemoglobin Concent 35 g/dL (31-37) Red Cell Distribution Width 13.8 % (11.5-14.5) Platelet Count 182 x10^3/uL (140-400) Neutrophils (%) (Auto) 67 % (31-73) Lymphocytes (%) (Auto) 22 % (24-48) Monocytes (%) (Auto) 9 % (0-9) Eosinophils (%) (Auto) 2 % (0-3) Basophils (%) (Auto) 1 % (0-3) Neutrophils # (Auto) 4.7 x10^3/uL (1.8-7.7) Lymphocytes # (Auto) 1.6 x10^3/uL (1.0-4.8) Monocytes # (Auto) 0.6 x10^3/uL (0.0-1.1) Eosinophils # (Auto) 0.1 x10^3/uL (0.0-0.7) Basophils # (Auto) 0.0 x10^3/uL (0.0-0.2) Sodium Level 131 mmol/L (136-145) Potassium Level 3.6 mmol/L (3.5-5.1) Chloride Level 94 mmol/L (98-107) Carbon Dioxide Level 28 mmol/L (21-32) Anion Gap 9 (6-14) Blood Urea Nitrogen 37 mg/dL (8-26) Creatinine 5.1 mg/dL (0.7-1.3) Estimated GFR (Cockcroft-Gault) 12.0 Glucose Level 152 mg/dL (70-99) Calcium Level 8.2 mg/dL (8.5-10.1) Hepatitis B Surface Antigen Nonreactive (Nonreactive) Hepatitis B Surface Antibody Reactive Review of Systems Review of Systems: Back pain, controlled. Denies shortness of breath, denies chest pain, denies nausea, denies vomiting, denies fever. Assessment and Plan Assessmemt and Plan Problems Medical Problems: (1) Hypertension Status: Chronic (2) Intractable pain Status: Acute Plan: Discharged with extended release oxycodone and home health. Comment Review of Relevant I have reviewed the following items nelda (where applicable) has been applied. Medications: Current Medications Medications (Trade) Dose Ordered Sig/Brittani Route PRN Reason Start Time Stop Time Status Last Admin Dose Admin Oxycodone HCl (OxyCONTIN) 10 mg Q12HR PO 07/17/20 21:00 07/18/20 08:05 Diphenhydramine HCl (Benadryl) 25 mg 1X PRN PRN IV ITCHING 07/18/20 08:00 07/19/20 07:59 07/18/20 09:35 Justifications for Admission Other Justification NAM,MO A MD Jul 18, 2020 16:18
--- NOTE | 2020-07-18 16:21 | SNU/HH DC ---
DISCHARGE WITH HOME HEALTH DISCHARGE INFORMATION: Discharge Date: Jul 18, 2020 Final Diagnosis: Problems Medical Problems: (1) Hypertension Status: Chronic (2) Intractable pain Status: Acute Condition on Discharge: Stable HOME HEALTH: Face to Face: I certify this patient is under my care and that I, or a nurse practitioner or physician's medical office assistant working with me, had a face to face encounter that meets the physician face to face encounter requirements with this patient on 07/18/2020.. RN For Eval/Treatment: Yes Physical Therapy For: Evalulation/Treatment Occupational Therapy For: Evaluation/Treatment Pt Meets Homebound Status: Poor coordination w/ amb., Extreme weakness w/ amb. POST DISCHARGE ORDERS: Activity Instructions for Disc: Resume previous activity DIET AFTER DISCHARGE: Renal Wound/Incision Care: Other, see below CERTIFICATION STATEMENT: Certification Statement: Certification Statement: Based on the above finding, I certify that this patient is confined to the home and needs intermittent fci care, physical therapy and/or speech therapy, or continues to need occupational therapy.~ This patient is under my care, and I have initiated the establishment of the plan of care.~ This patient will be followed by myself or a community physician who will periodically review the plan of care. Home Meds Active Scripts Gabapentin (GABAPENTIN ) 100 Mg Capsule, 100 MG PO TID for NEUROGENIC PAIN for 30 Days, #90 CAP Prov:GALI ROMERO MD 05/21/20 [Diclofenac Sodium 1% Topical] 100 GM GEL..GRAM. No Conflict Check, 1 MAYRA TP BID for Costochondritis for 30 Days, #60 EACH Prov:GALI ROMERO MD 03/14/20 Reported Medications Oxycodone/Apap 10-325 (PERCOCET 10-325 MG TABLET ) 1 Each Tablet, 1 TAB PO QIDPRN PRN for PAIN MDD 4 Tablet(s), TAB 0 Refills 07/15/20 Insulin Degludec (Tresiba) 100 Unit/1 Ml Vial, 42 UNIT SQ HS for control blood sugar, EACH 06/23/20 Ranolazine (RANEXA) 500 Mg Tab.er.12h, 500 MG PO BID for Angina, TAB.SR 05/11/20 Folic Acid/Vit Bcomp,C (Renal-Irvin Tablet) 0.8 Mg Tablet, 0.8 MG PO DAILY for supplement, TAB 04/03/20 Insulin Aspart (NOVOLOG) 100 Unit/1 Ml Vial, 0 SQ PRN TID PRN for sliding scale, VIAL 04/03/20 Lorazepam (ATIVAN) 1 Mg Tablet, 0.5 MG PO PRN Q4HRS PRN for ANXIETY / AGITATION, TAB 01/17/20 Lisinopril (LISINOPRIL) 20 Mg Tablet, 20 MG PO DAILY for FOR HYPERTENSION, #30 TAB 0 Refills 01/17/20 Ondansetron Hcl (ZOFRAN) 4 Mg Tablet, 1 TAB PO PRN Q4HRS PRN for NAUSEA, #20 TAB 12/30/19 Nitroglycerin (NITROGLYCERIN SubLingual) 0.4 Mg Tab.subl, 0.4 MG SL PRN Q5MIN PRN for CHEST PAIN, BOTTLE 12/30/19 Hydralazine Hcl (HYDRALAZINE HCL) 25 Mg Tablet, 1 TAB PO BID for hypertension, #90 TAB 5 Refills 12/30/19 Citalopram Hydrobromide (CITALOPRAM HBR) 40 Mg Tablet, 40 MG PO HS for anxiety, TAB 12/30/19 Pantoprazole Sodium (PROTONIX) 20 Mg Tablet.dr, 40 MG PO DAILY for , TAB 07/16/19 Docusate Sodium (DOCUSATE SODIUM) 100 Mg Capsule, 1 CAP PO DAILY for , #30 CAP 07/16/19 Divalproex Sodium (DIVALPROEX SODIUM) 500 Mg Tablet.dr, 2 TAB PO BID for , #60 TAB 1 Refill 07/16/19 Aspirin (ASPIRIN) 81 Mg Tab.chew, 1 TAB PO DAILY for , #30 TAB 3 Refills 07/16/19 Lubiprostone (AMITIZA) 24 Mcg Capsule, 1 CAP PO DAILY for , #60 CAP 5 Refills 07/16/19 Amlodipine Besylate (NORVASC) 10 Mg Tablet, 10 MG PO DAILY, TAB 07/24/18 Carvedilol (COREG) 25 Mg Tablet, 12.5 MG PO BIDWMEALS for HTN, TAB 07/24/18 Sevelamer Carbonate (RENVELA) 800 Mg Tablet, 800 MG PO TIDWMEALS, TAB 07/24/18 MO NAM MD Jul 18, 2020 16:21
--- NOTE | 2020-07-18 16:29 | PDOC3 ---
Discharge Summary Visit Information Date of Admission: Jul 15, 2020 Date of Discharge: Jul 18, 2020 Final Diagnosis Problems Medical Problems: (1) Hypertension Status: Chronic (2) Intractable pain Status: Acute Brief Hospital Course Allergies Allergies Coded Allergies Type Severity Reaction Last Updated Verified hydromorphone Allergy Severe Anaphylaxis 06/24/20 Yes Vital Signs Vital Signs Date Time Temp Pulse Resp B/P (MAP) Pulse Ox O2 Delivery O2 Flow Rate FiO2 07/18/20 15:15 20 94 Room Air 07/18/20 15:00 98.2 66 144/67 (92) 98.2 07/17/20 14:04 2.0 Lab Results Laboratory Tests Test 07/16/20 17:27 07/16/20 20:25 07/17/20 07:10 07/17/20 09:50 Glucose (Fingerstick) 244 mg/dL (70-99) 314 mg/dL (70-99) 181 mg/dL (70-99) White Blood Count 7.7 x10^3/uL (4.0-11.0) Red Blood Count 3.38 x10^6/uL (4.30-5.70) Hemoglobin 11.0 g/dL (13.0-17.5) Hematocrit 31.1 % (39.0-53.0) Mean Corpuscular Volume 92 fL (79-100) Mean Corpuscular Hemoglobin 32 pg (25-35) Mean Corpuscular Hemoglobin Concent 35 g/dL (31-37) Red Cell Distribution Width 13.6 % (11.5-14.5) Platelet Count 189 x10^3/uL (140-400) Neutrophils (%) (Auto) 61 % (31-73) Lymphocytes (%) (Auto) 23 % (24-48) Monocytes (%) (Auto) 14 % (0-9) Eosinophils (%) (Auto) 2 % (0-3) Basophils (%) (Auto) 1 % (0-3) Neutrophils # (Auto) 4.7 x10^3/uL (1.8-7.7) Lymphocytes # (Auto) 1.8 x10^3/uL (1.0-4.8) Monocytes # (Auto) 1.1 x10^3/uL (0.0-1.1) Eosinophils # (Auto) 0.1 x10^3/uL (0.0-0.7) Basophils # (Auto) 0.0 x10^3/uL (0.0-0.2) Sodium Level 127 mmol/L (136-145) Potassium Level 3.7 mmol/L (3.5-5.1) Chloride Level 92 mmol/L (98-107) Carbon Dioxide Level 28 mmol/L (21-32) Anion Gap 7 (6-14) Blood Urea Nitrogen 37 mg/dL (8-26) Creatinine 5.7 mg/dL (0.7-1.3) Estimated GFR (Cockcroft-Gault) 10.5 Glucose Level 255 mg/dL (70-99) Calcium Level 8.4 mg/dL (8.5-10.1) Test 07/17/20 11:00 07/17/20 16:14 07/17/20 20:18 07/18/20 06:56 Glucose (Fingerstick) 237 mg/dL (70-99) 125 mg/dL (70-99) 172 mg/dL (70-99) 180 mg/dL (70-99) Test 07/18/20 09:09 07/18/20 12:17 White Blood Count 7.0 x10^3/uL (4.0-11.0) Red Blood Count 3.32 x10^6/uL (4.30-5.70) Hemoglobin 10.6 g/dL (13.0-17.5) Hematocrit 30.7 % (39.0-53.0) Mean Corpuscular Volume 93 fL (79-100) Mean Corpuscular Hemoglobin 32 pg (25-35) Mean Corpuscular Hemoglobin Concent 35 g/dL (31-37) Red Cell Distribution Width 13.8 % (11.5-14.5) Platelet Count 182 x10^3/uL (140-400) Neutrophils (%) (Auto) 67 % (31-73) Lymphocytes (%) (Auto) 22 % (24-48) Monocytes (%) (Auto) 9 % (0-9) Eosinophils (%) (Auto) 2 % (0-3) Basophils (%) (Auto) 1 % (0-3) Neutrophils # (Auto) 4.7 x10^3/uL (1.8-7.7) Lymphocytes # (Auto) 1.6 x10^3/uL (1.0-4.8) Monocytes # (Auto) 0.6 x10^3/uL (0.0-1.1) Eosinophils # (Auto) 0.1 x10^3/uL (0.0-0.7) Basophils # (Auto) 0.0 x10^3/uL (0.0-0.2) Sodium Level 131 mmol/L (136-145) Potassium Level 3.6 mmol/L (3.5-5.1) Chloride Level 94 mmol/L (98-107) Carbon Dioxide Level 28 mmol/L (21-32) Anion Gap 9 (6-14) Blood Urea Nitrogen 37 mg/dL (8-26) Creatinine 5.1 mg/dL (0.7-1.3) Estimated GFR (Cockcroft-Gault) 12.0 Glucose Level 152 mg/dL (70-99) Calcium Level 8.2 mg/dL (8.5-10.1) Hepatitis B Surface Antigen Nonreactive (Nonreactive) Hepatitis B Surface Antibody Reactive Glucose (Fingerstick) 132 mg/dL (70-99) Laboratory Tests Test 07/17/20 20:18 07/18/20 06:56 07/18/20 09:09 07/18/20 12:17 Glucose (Fingerstick) 172 mg/dL (70-99) 180 mg/dL (70-99) 132 mg/dL (70-99) White Blood Count 7.0 x10^3/uL (4.0-11.0) Red Blood Count 3.32 x10^6/uL (4.30-5.70) Hemoglobin 10.6 g/dL (13.0-17.5) Hematocrit 30.7 % (39.0-53.0) Mean Corpuscular Volume 93 fL (79-100) Mean Corpuscular Hemoglobin 32 pg (25-35) Mean Corpuscular Hemoglobin Concent 35 g/dL (31-37) Red Cell Distribution Width 13.8 % (11.5-14.5) Platelet Count 182 x10^3/uL (140-400) Neutrophils (%) (Auto) 67 % (31-73) Lymphocytes (%) (Auto) 22 % (24-48) Monocytes (%) (Auto) 9 % (0-9) Eosinophils (%) (Auto) 2 % (0-3) Basophils (%) (Auto) 1 % (0-3) Neutrophils # (Auto) 4.7 x10^3/uL (1.8-7.7) Lymphocytes # (Auto) 1.6 x10^3/uL (1.0-4.8) Monocytes # (Auto) 0.6 x10^3/uL (0.0-1.1) Eosinophils # (Auto) 0.1 x10^3/uL (0.0-0.7) Basophils # (Auto) 0.0 x10^3/uL (0.0-0.2) Sodium Level 131 mmol/L (136-145) Potassium Level 3.6 mmol/L (3.5-5.1) Chloride Level 94 mmol/L (98-107) Carbon Dioxide Level 28 mmol/L (21-32) Anion Gap 9 (6-14) Blood Urea Nitrogen 37 mg/dL (8-26) Creatinine 5.1 mg/dL (0.7-1.3) Estimated GFR (Cockcroft-Gault) 12.0 Glucose Level 152 mg/dL (70-99) Calcium Level 8.2 mg/dL (8.5-10.1) Hepatitis B Surface Antigen Nonreactive (Nonreactive) Hepatitis B Surface Antibody Reactive Brief Hospital Course Mr. Bedolla is a 54 old male who presented with intractable lower back pain and ESRD on hemodialysis. He was managed with appropriate pain medications. Oxycodone extended release 10 mg every 12 hours was added to his home medications upon discharge. He was discharged with home health Discharge Information Condition at Discharge: Stable Disposition/Orders: D/C to Home w/ HH Scheduled Amlodipine Besylate (Norvasc) 10 Mg Tablet, 10 MG PO DAILY, (Reported) Entered as Reported by: Betzy Norris on 07/24/188 Last Action: Continued on 07/16/2027 by JOSE MARR Aspirin (Aspirin) 81 Mg Tab.chew, 1 TAB PO DAILY for , #30 Ref 3 (Reported) Entered as Reported by: TREMAYNE ROMERO RN on 07/16/19 676 Last Action: Continued on 07/16/2027 by JOSE MARR Carvedilol (Coreg) 25 Mg Tablet, 12.5 MG PO BIDWMEALS for HTN, (Reported) Entered as Reported by: Betzy Norris on 07/24/18 0318 Last Action: Converted on 07/16/2027 by JOSE MARR Citalopram Hydrobromide (Citalopram Hbr) 40 Mg Tablet, 40 MG PO HS for anxiety, (Reported) Entered as Reported by: BRENDON SEGURA on 12/30/19 1016 Last Action: Converted on 07/16/2027 by JOSE MARR Divalproex Sodium (Divalproex Sodium) 500 Mg Tablet.dr, 2 TAB PO BID for , #60 Ref 1 (Reported) Entered as Reported by: TREMAYNE ROMERO RN on 07/16/191752 Last Action: Continued on 07/16/2027 by JOSE MARR Docusate Sodium (Docusate Sodium) 100 Mg Capsule, 1 CAP PO DAILY for , #30 (Reported) Entered as Reported by: TREMAYNE ROMERO RN on 07/16/191752 Last Action: Continued on 07/16/2027 by JOSE MARR Folic Acid/Vit Bcomp,C (Renal-Irvin Tablet) 0.8 Mg Tablet, 0.8 MG PO DAILY for supplement, (Reported) Entered as Reported by: SEVEN NIELSEN on 04/03/20 1302 Last Action: Continued on 07/16/2027 by JOSE MARR Gabapentin (Gabapentin ) 100 Mg Capsule, 100 MG PO TID for NEUROGENIC PAIN for 30 Days, #90 Prescribed by: GALI ROMERO MD on 05/21/20 1638 Last Action: Continued on 07/16/2027 by JOSE MARR Hydralazine Hcl (Hydralazine Hcl) 25 Mg Tablet, 1 TAB PO BID for hypertension, #90 Ref 5 (Reported) Entered as Reported by: BRENDON SEGURA on 12/30/19 1016 Last Action: Continued on 07/16/2027 by JOSE MARR Insulin Degludec (Tresiba) 100 Unit/1 Ml Vial, 42 UNIT SQ HS for control blood sugar, (Reported) Entered as Reported by: SEVEN NIELSEN on 06/23/20 1230 Last Action: Converted on 07/16/2027 by JOSE MARR Lisinopril (Lisinopril) 20 Mg Tablet, 20 MG PO DAILY for FOR HYPERTENSION, #30 Ref 0 (Reported) Entered as Reported by: BHUPENDRA PEREZ on 01/17/20 1035 Last Action: Continued on 07/16/2027 by JOSE MARR Lubiprostone (Amitiza) 24 Mcg Capsule, 1 CAP PO DAILY for , #60 Ref 5 (Reported) Entered as Reported by: TREMAYNE ROMERO RN on 07/16/191752 Last Action: Continued on 07/16/2027 by JOSE MARR Pantoprazole Sodium (Protonix) 20 Mg Tablet.dr, 40 MG PO DAILY for , (Reported) Entered as Reported by: TREMAYNE ROMERO RN on 07/16/191752 Last Action: Converted on 07/16/2027 by JOSE MARR Ranolazine (Ranexa) 500 Mg Tab.er.12h, 500 MG PO BID for Angina, (Reported) Entered as Reported by: TABATHA MCCLENDON RN on 05/11/20 0813 Last Action: Continued on 07/16/2027 by JOSE MARR Sevelamer Carbonate (Renvela) 800 Mg Tablet, 800 MG PO TIDWMEALS, (Reported) Entered as Reported by: Betzy Norris on 07/24/18 0302 Last Action: Continued on 07/16/2027 by JOSE MARR [Diclofenac Sodium] 100 GM GEL..GRAM., 1 MAYRA TP BID for Costochondritis for 30 Days, #60 Prescribed by: GALI ROMERO MD on 03/14/20 1053 Last Action: Converted on 07/16/2027 by JOSE MARR Scheduled PRN Insulin Aspart (Novolog) 100 Unit/1 Ml Vial, 0 SQ PRN TID PRN for sliding scale, (Reported) Entered as Reported by: SEVEN NIELSEN on 04/03/20 1302 Last Action: Converted on 07/16/2027 by JOSE MARR Lorazepam (Ativan) 1 Mg Tablet, 0.5 MG PO PRN Q4HRS PRN for ANXIETY / AGITATION, (Reported) Entered as Reported by: BHUPENDRA PEREZ on 01/17/20 1050 Last Action: Continued on 07/16/2027 by JOSE MARR Nitroglycerin (NITROGLYCERIN SubLingual) 0.4 Mg Tab.subl, 0.4 MG SL PRN Q5MIN PRN for CHEST PAIN, (Reported) Entered as Reported by: BRENDON SEGURA on 12/30/19 1016 Last Action: Continued on 07/16/2027 by JOSE MARR Ondansetron Hcl (Zofran) 4 Mg Tablet, 1 TAB PO PRN Q4HRS PRN for NAUSEA, #20 (Reported) Entered as Reported by: BRENDON SEGURA on 12/30/19 1016 Last Action: Converted on 07/16/2027 by JOSE MARR Oxycodone/Apap 10-325 (Percocet 10-325 Mg Tablet ) 1 Each Tablet, 1 TAB PO QIDPRN PRN for PAIN MDD 4 Tablet(s), Ref 0 (Reported) Entered as Reported by: JOSE MARR on 07/15/20 2321 Last Taken: Unknown Dose on 07/15/20 Last Action: Continued on 07/16/2027 by JOSE MARR Justicifation of Admission Dx: Justifications for Admission: Justification of Admission Dx: Yes Chronic Renal Failure: Hypertension Altered Mental Status: Altered Mental Status MO NAM MD Jul 18, 2020 16:29
--- NOTE | 2020-07-18 16:40 | NUR ---
Discharge instructions given, questions and concerns answered, patient verbalized understanding of discharge information including taking all medications as instructed and following up with hi primary provider in 1-2 weeks, threat monitoring analyst and saline lock removed prior to discharge.
--- NOTE | 2020-07-18 17:01 | NUR ---
PATIENT LEAVES THE UNIT PER W/C AND ACCOMPANIED BY THIS COURT ADMINISTRATOR AND HIS SPOUSE, EMOTIONAL SUPPORT GIVEN, FOLLOW UP APPOINTMENTS ENCOURAGED.
== END 2020-07-18 17:01 | disposition home health service (06) | DRG 637 ==
LOC: ER 16:37 → 5 NORTH 20:40
PROVIDERS: ADMIT Internal Medicine; ATTEND Internal Medicine
PROC: 5A1D70Z Performance of Urinary Filtration, Intermittent, Less than 6 Hours Per Day (ICD-10-PCS; principal; 2020-07-16)
PROC: 5A1D70Z Performance of Urinary Filtration, Intermittent, Less than 6 Hours Per Day (ICD-10-PCS; 2020-07-18)
DX: E11.01 Type 2 diabetes mellitus with hyperosmolarity with coma (principal); N18.6 End stage renal disease; E87.1 Hypo-osmolality and hyponatremia; E46 Unspecified protein-calorie malnutrition; I13.2 Hypertensive heart and chronic kidney disease with heart failure and with stage 5 chronic kidney disease, or end stage renal disease; M25.551 Pain in right hip; D64.9 Anemia, unspecified; E11.22 Type 2 diabetes mellitus with diabetic chronic kidney disease; E78.00 Pure hypercholesterolemia, unspecified; E78.5 Hyperlipidemia, unspecified; E87.5 Hyperkalemia; F17.210 Nicotine dependence, cigarettes, uncomplicated; F41.9 Anxiety disorder, unspecified; G89.29 Other chronic pain; I50.9 Heart failure, unspecified; I25.10 Atherosclerotic heart disease of native coronary artery without angina pectoris; M51.37 Other intervertebral disc degeneration, lumbosacral region; E11.42 Type 2 diabetes mellitus with diabetic polyneuropathy; E21.3 Hyperparathyroidism, unspecified; F32.9 Major depressive disorder, single episode, unspecified; K21.9 Gastro-esophageal reflux disease without esophagitis; M47.816 Spondylosis without myelopathy or radiculopathy, lumbar region; Z99.2 Dependence on renal dialysis; Z95.1 Presence of aortocoronary bypass graft; Z68.30 Body mass index [BMI] 30.0-30.9, adult; Z91.19 Patient's noncompliance with other medical treatment and regimen; Z86.73 Personal history of transient ischemic attack (TIA), and cerebral infarction without residual deficits; Z86.711 Personal history of pulmonary embolism; Z82.49 Family history of ischemic heart disease and other diseases of the circulatory system; Z87.01 Personal history of pneumonia (recurrent); Z79.899 Other long term (current) drug therapy; Z79.82 Long term (current) use of aspirin; Z79.4 Long term (current) use of insulin; Z88.5 Allergy status to narcotic agent
CPT/HCPCS: 36415; 36600; 71045; 72100; 80048; 80053; 81001; 82805; 82962; 83735; 85025; 86706; 87340; 93005; 93306; 96361; 96374; 96375; 99285; J0360; J1200; J1644; J1815; J3010; J7030; G0378

== ENCOUNTER 2020-08-20 10:07 | Emergency (ER) | payer MEDICARE, OTHER ==
[~2020-08-20] VITALS: Ht 190.5 cm; Wt 114.0 kg
[~2020-08-20 10:07] MED LIST changes: +ACET325T9 PO; +ATOR40TA59 PO; +CARV12.511 PO; +HYDR-2869 PO
[2020-08-20 11:02] LABS: CALCIUM 8.7 mg/dL (8.5-10.1); CREATININE 6.2 mg/dL (0.7-1.3); GFR 9.6; POTASSIUM 4.4 mmol/L (3.5-5.1)
[2020-08-20 11:05] LABS: BASO # 0.1 x10^3/uL (0.0-0.2); BASO % 1 % (0-3); EOS # 0.2 x10^3/uL (0.0-0.7); EOS % 2 % (0-3); HEMATOCRIT 34.7 % (39.0-53.0); HEMOGLOBIN 11.6 g/dL (13.0-17.5); LYMPH # 1.4 x10^3/uL (1.0-4.8); LYMPH % 12 % (24-48); MEAN CORPUSCULAR HEMOGLOBIN 32 pg (25-35); MEAN CORPUSCULAR HGB CONC 33 g/dL (31-37); MEAN CORPUSCULAR VOLUME 95 fL (79-100); MONO # 0.7 x10^3/uL (0.0-1.1); MONO % 6 % (0-9); NEUT # 9.1 x10^3/uL (1.8-7.7); NEUT % 79 % (31-73); PLATELET COUNT 237 x10^3/uL (140-400); RED BLOOD COUNT 3.67 x10^6/uL (4.30-5.70); RED CELL DISTRIBUTION WIDTH 13.9 % (11.5-14.5); WHITE BLOOD COUNT 11.5 x10^3/uL (4.0-11.0)
[2020-08-20 13:41] VITALS: BP 172/75
--- NOTE | 2020-08-20 14:02 | ED.ADGEN ---
Past Medical History Past Medical History: Anxiety, CAD, Cancer, CHF, Diabetes-Type II, High Cholesterol, Heart Disease, Hypertension, [place], Pneumonia, Renal Disease, Renal Failure, Seizure Additional Past Medical Histor: dialysis; chronic back pain Past Surgical History: Cholecystectomy, Coronary Bypass Surgery Additional Past Surgical Histo: HERNIA, peritoneal dialysis cath Smoking Status: Current Every Day Smoker Alcohol Use: None Drug Use: None General Adult EDM: Chief Complaint: HYPOGLYCEMIA HPI: HPI: Patient is a 54-year-old male who presents to the emergency room after having episode of hypoglycemia. He was recently admitted to [facility] due to chest pain. He states while he was in the hospital he had significant hypoglycemia every morning. This morning his found him diaphoretic in bed and unconscious. She was unable to get him awake. She was able to get some sugar in and was able to then wake him up. This is similar to the issues he was having in the hospital. Patient feels weak and tired. He denies any fever, co ugh, shortness of breath. He gave himself his normal dose of insulin yesterday evening. Review of Systems: Review of Systems: General: Denies fever, chills, sweats, fatigue Eyes: Denies drainage, blurred vision, eye redness HENT: Denies rhinorrhea, sore throat, earache Respiratory: Denies cough, shortness of breath, wheezing Cardiac: Denies edema, palpitations, chest pain GI: Denies abdominal pain, Nausea, vomiting MSK: Denies back pain, neck pain Skin: Denies rash, jaundice Neuro: Denies headache. Reports generalized weakness and dizziness Psychiatric: Denies SI/HI Allergies: Allergies: Allergies Coded Allergies Type Severity Reaction Last Updated Verified hydromorphone Allergy Severe Anaphylaxis 06/24/20 Yes Physical Exam: PE: General: Awake, alert, NAD. Well Nourished, well hydrated. Cooperative HEENT: Atraumatic, EOMI, PERRL, airway patent, moist oral mucosa Neck: Supple, trachea midline Respiratory: CTA bilaterally, normal effort, no wheezing/crackles CV: RRR, no murmur, cap refill <2 GI: Soft, nondistended, nontender, no masses MSK: No obvious deformities Skin: Warm, dry, intact Neuro: A&O x3, speech NL, sensory and motor grossly intact, no focal deficits Psych: Normal affect, normal mood, not suicidal or homicidal Current Patient Data: Labs: Laboratory Tests Test 08/20/20 10:21 08/20/20 10:36 Glucose (Fingerstick) 152 mg/dL (70-99) H White Blood Count 11.5 x10^3/uL (4.0-11.0) H Red Blood Count 3.67 x10^6/uL (4.30-5.70) L Hemoglobin 11.6 g/dL (13.0-17.5) L Hematocrit 34.7 % (39.0-53.0) L Mean Corpuscular Volume 95 fL (79-100) Mean Corpuscular Hemoglobin 32 pg (25-35) Mean Corpuscular Hemoglobin Concent 33 g/dL (31-37) Red Cell Distribution Width 13.9 % (11.5-14.5) Platelet Count 237 x10^3/uL (140-400) Neutrophils (%) (Auto) 79 % (31-73) H Lymphocytes (%) (Auto) 12 % (24-48) L Monocytes (%) (Auto) 6 % (0-9) Eosinophils (%) (Auto) 2 % (0-3) Basophils (%) (Auto) 1 % (0-3) Neutrophils # (Auto) 9.1 x10^3/uL (1.8-7.7) H Lymphocytes # (Auto) 1.4 x10^3/uL (1.0-4.8) Monocytes # (Auto) 0.7 x10^3/uL (0.0-1.1) Eosinophils # (Auto) 0.2 x10^3/uL (0.0-0.7) Basophils # (Auto) 0.1 x10^3/uL (0.0-0.2) Sodium Level 137 mmol/L (136-145) Potassium Level 4.4 mmol/L (3.5-5.1) Chloride Level 100 mmol/L (98-107) Carbon Dioxide Level 25 mmol/L (21-32) Anion Gap 12 (6-14) Blood Urea Nitrogen 40 mg/dL (8-26) H Creatinine 6.2 mg/dL (0.7-1.3) H Estimated GFR (Cockcroft-Gault) 9.6 Glucose Level 145 mg/dL (70-99) H Calcium Level 8.7 mg/dL (8.5-10.1) Laboratory Tests 08/20/20 10:36 Laboratory Tests 08/20/20 10:36 Vital Signs: Vital Signs Date Time Temp Pulse Resp B/P (MAP) Pulse Ox O2 Delivery O2 Flow Rate FiO2 08/20/20 13:41 70 18 172/75 (107) 95 Room Air 08/20/20 10:40 98.2 98.2 EKG: EKG: [] Heart Score: Risk Factors: Risk Factors: DM, Current or recent (<one month) smoker, HTN, HLP, family history of CAD, obesity. Risk Scores: Score 0 - 3: 2.5% MACE over next 6 weeks - Discharge Home Score 4 - 6: 20.3% MACE over next 6 weeks - Admit for Clinical Observation Score 7 - 10: 72.7% MACE over next 6 weeks - Early Invasive Strategies Radiology/Procedures: Radiology/Procedures: [] Course & Med Decision Making: Course & Med Decision Making Pertinent Labs and Imaging studies reviewed. (See chart for details) Patient is a 54-year-old male who presents to the emergency room complaining of an episode of hypoglycemia. This morning his meter read below. This is been an ongoing problem. I have discussed with him his insulin regiment. I reviewed the changes made and have reviewed them with him. Patient will make appropriate changes at home. He was able to eat lunch and his glucoses remained stable. I discussed with them that if this happens again he should return to the emergency room so that we can admit him. He has a follow-up with endocrinology at in 2 weeks. Patient's test results and vitals while in the ED were fully reviewed and discussed with the patient. Patient is stable and at this time does not need admission to the hospital. We have discussed strict return precautions and the importance of following up with their Primary Care Physician. Patient stated understanding and was given an opportunity to ask any questions. Patient is in agreement with plan. Dragon Disclaimer: Dragon Disclaimer: This electronic medical record was generated, in whole or in part, using a voice recognition dictation system. Departure Departure Impression: Primary Impression: Hypoglycemia Disposition: 01 DC HOME SELF CARE/HOMELESS Condition: STABLE Referrals: KHRIS LOPEZ MD (PCP) Patient Instructions: Hypoglycemia (Low Blood Sugar) DEMETRIO SHEIKH MD Aug 20, 2020 14:02
== END 2020-08-20 14:26 | disposition home or self-care (01) ==
LOC: ER 10:07
DX: E11.649 Type 2 diabetes mellitus with hypoglycemia without coma (principal); R07.89 Other chest pain; R61 Generalized hyperhidrosis; I13.0 Hypertensive heart and chronic kidney disease with heart failure and stage 1 through stage 4 chronic kidney disease, or unspecified chronic kidney disease; E11.22 Type 2 diabetes mellitus with diabetic chronic kidney disease; N18.9 Chronic kidney disease, unspecified; I50.9 Heart failure, unspecified; E78.00 Pure hypercholesterolemia, unspecified; I25.2 Old myocardial infarction; F17.200 Nicotine dependence, unspecified, uncomplicated; I25.10 Atherosclerotic heart disease of native coronary artery without angina pectoris; F41.9 Anxiety disorder, unspecified; G89.29 Other chronic pain; Z90.49 Acquired absence of other specified parts of digestive tract; Z95.1 Presence of aortocoronary bypass graft; Z88.5 Allergy status to narcotic agent
CPT/HCPCS: 36415; 80048; 82962; 85025; 99285

== ENCOUNTER 2020-08-21 09:24 | Observation (INO) | payer MEDICARE, OTHER ==
[~2020-08-21] VITALS: Ht 190.5 cm; Wt 108.2 kg
--- NOTE | 2020-08-21 09:54 | PHYS DOC ---
Past Medical History Past Medical History: Anxiety, CAD, Cancer, CHF, Diabetes-Type II, High C holesterol, Heart Disease, Hypertension, [place], Pneumonia, Renal Disease, Renal Failure, Seizure, Other Additional Past Medical Histor: dialysis; chronic back pain Past Surgical History: Cholecystectomy, Coronary Bypass Surgery Additional Past Surgical Histo: HERNIA, peritoneal dialysis cath Smoking Status: Current Every Day Smoker Additional Information: 1 PPD Alcohol Use: None Drug Use: None General Adult EDM: Chief Complaint: HYPOGLYCEMIA HPI: HPI: 54-year-old male presented emerge department today with hypoglycemia. His blood sugar was in the 40s when he called paramedics who gave him oral glucose and a [place] jelly sandwich which brought his blood sugar up. He is now awake and oriented and comes in without any complaints. He had this happened yesterday and was discharged and recently was in the hospital about a week ago. Yesterday when his blood sugar had dropped he changed his long-acting insulin and decreased this. Currently he denies any symptoms. Onset today. Location bloodstream. Duration constant. Alleviated by dextrose. Review of systems negative for chest pain shortness of breath vomiting fevers chills. All other review of systems negative. ED course: 54-year-old male presenting with second episode of hypoglycemia in the last 48 hours and is on insulin with end-stage renal disease. Here the patient is well and asymptomatic however given his previous hypoglycemia yesterday we will admit him to the hospital for monitoring and adjustment of his insulin regimens. I spoke with Dr. Armendariz who accepts patient for admission. Heart Score: Risk Factors: Risk Factors: DM, Current or recent (<one month) smoker, HTN, HLP, family history of CAD, obesity. Risk Scores: Score 0 - 3: 2.5% MACE over next 6 weeks - Discharge Home Score 4 - 6: 20.3% MACE over next 6 weeks - Admit for Clinical Observation Score 7 - 10: 72.7% MACE over next 6 weeks - Early Invasive Strategies Allergies: Allergies: Allergies Coded Allergies Type Severity Reaction Last Updated Verified hydromorphone Allergy Severe Anaphylaxis 06/24/20 Yes Physical Exam: PE: Constitutional: Well developed, well nourished, no acute distress, non-toxic appearance. [] HENT: Normocephalic, atraumatic, bilateral external ears normal, oropharynx moist, no oral exudates, nose normal. [] Eyes: PERRLA, EOMI, conjunctiva normal, no discharge. [] Neck: Normal range of motion, no tenderness, supple, no stridor. [] Cardiovascular:Heart rate regular rhythm, no murmur [] Lungs & Thorax: Bilateral breath sounds clear to auscultation [] Abdomen: Bowel sounds normal, soft, no tenderness, no masses, no pulsatile masses. [] Skin: Warm, dry, no erythema, no rash. [] Back: No tenderness, no CVA tenderness. [] Extremities: No tenderness, no cyanosis, no clubbing, ROM intact, no edema. [] Neurologic: Alert and oriented X 3, normal motor function, normal sensory function, no focal deficits noted. [] Psychologic: Affect normal, judgement normal, mood normal. [] Current Patient Data: Labs: Laboratory Tests Test 08/21/20 09:45 Glucose (Fingerstick) 183 mg/dL (70-99) H EKG: EKG: [] Radiology/Procedures: Radiology/Procedures: [] Course & Med Decision Making: Course & Med Decision Making Pertinent Labs and Imaging studies reviewed. (See chart for details) [] Dragon Disclaimer: Dragon Disclaimer: This electronic medical record was generated, in whole or in part, using a voice recognition dictation system. Departure Departure Impression: Primary Impression: Hypoglycemia Disposition: ADMITTED INPT THIS HOSP Admitting Physician: ADAN Condition: STABLE Referrals: KHRIS LOPEZ MD (PCP) JAMIE SINGH MD Aug 21, 2020 09:54
[2020-08-21 10:33] LABS: CALCIUM 8.8 mg/dL (8.5-10.1); CREATININE 5.1 mg/dL (0.7-1.3); POTASSIUM 3.6 mmol/L (3.5-5.1)
[2020-08-21 10:35] LABS: ALBUMIN 2.8 g/dL (3.4-5.0); BASO # 0.1 x10^3/uL (0.0-0.2); BASO % 1 % (0-3); DIRECT BILIRUBIN 0.1 mg/dL (0.0-0.2); EOS # 0.1 x10^3/uL (0.0-0.7); EOS % 1 % (0-3); HEMATOCRIT 34.1 % (39.0-53.0); HEMOGLOBIN 11.4 g/dL (13.0-17.5); LYMPH # 1.4 x10^3/uL (1.0-4.8); LYMPH % 15 % (24-48); MEAN CORPUSCULAR HEMOGLOBIN 32 pg (25-35); MEAN CORPUSCULAR HGB CONC 33 g/dL (31-37); MEAN CORPUSCULAR VOLUME 94 fL (79-100); MONO % 10 % (0-9); NEUT # 6.7 x10^3/uL (1.8-7.7); NEUT % 72 % (31-73); PLATELET COUNT 242 x10^3/uL (140-400); RED BLOOD COUNT 3.62 x10^6/uL (4.30-5.70); RED CELL DISTRIBUTION WIDTH 13.8 % (11.5-14.5); TOTAL BILIRUBIN 0.2 mg/dL (0.2-1.0); TOTAL PROTEIN 7.2 g/dL (6.4-8.2); WHITE BLOOD COUNT 9.3 x10^3/uL (4.0-11.0)
--- NOTE | 2020-08-21 13:05 | PDOC1 ---
History and Physical Date of Admission Date of Admission DATE: 08/21/20 TIME: 13:03 Identification/Chief Complaint Chief Complaint 54-year-old male presented emerge department with hypoglycemia, sugar was in the 40s when he called paramedics who gave him oral glucose and a jelly sandwich , He is now awake and oriented and comes in without any complaints. He had this happened yesterday and was discharged and recently was in the hospital about a week ago. on 08-20 he changed his long-acting insulin and decreased his dose with second episode of hypoglycemia in the last 48 hours , we will admit him to the hospital for monitoring and adjustment of his insulin need Past Medical History Past Medical History Past Medical History Past Medical History: Anxiety, CAD, Cancer, CHF, Diabetes-Type II, High Cholesterol, Heart Disease, Hypertension, [place], Pneumonia, Renal Disease, Renal Fa ilure, Seizure, Other Additional Past Medical Histor: dialysis; chronic back pain Past Surgical History: Cholecystectomy, Coronary Bypass Surgery Additional Past Surgical Histo: HERNIA, peritoneal dialysis cath Smoking Status: Current Every Day Smoker Additional Information: 1 PPD Alcohol Use: None Drug Use: None fhx htn Cardiovascular: CAD, CHF, HTN, Hyperlipidemia, Other Pulmonary: Bronchitis, Pulmonary embolus, Pneumonia, Other CENTRAL NERVOUS SYSTEM: CVA, Periperal neuropathy, Other GI: GERD, Other Heme/Onc: Cancer Psych: Depression Renal/: Chronic renal failure Endocrine: Diabetes, Hyperparathyroidism Past Surgical History Past Surgical History: Cholecystectomy, CABG, Tonsillectomy, Other Family History Family History: High Cholestrol, Hypertension, Kidney Disease Social History Smoke: <1 pack per day ALCOHOL: none Drugs: Other Current Medications Current Medications Active Scripts Active Tylenol (Acetaminophen) 325 Mg Tablet 650 Mg PO PRN Q6HRS PRN 14 Days Carvedilol (Carvedilol) 12.5 Mg Tablet 25 Mg PO BIDWMEALS 30 Days Hydralazine Hcl 50 Mg Tablet 50 Mg PO BID 30 Days Atorvastatin Calcium 40 Mg Tablet 40 Mg PO QHS 30 Days Gabapentin (Gabapentin) 100 Mg Capsule 100 Mg PO TID 30 Days [Diclofenac Sodium] 100 GM Gel..gram. 1 Christo TP BID 30 Days Reported Percocet 10-325 Mg Tablet (Oxycodone/Acetaminophen) 1 Each Tablet 1 Tab PO QIDPRN PRN MDD 4 Tablet(s) Tresiba (Insulin Degludec) 100 Unit/1 Ml Vial 42 Unit SQ HS Ranexa (Ranolazine) 500 Mg Tab.er.12h 500 Mg PO BID Renal-Irvin Tablet (Folic Acid/Vit Bcomp,C) 0.8 Mg Tablet 0.8 Mg PO DAILY Novolog (Insulin Aspart) 100 Unit/1 Ml Vial 0 SQ PRN TID PRN Lisinopril 20 Mg Tablet 20 Mg PO DAILY Zofran (Ondansetron Hcl) 4 Mg Tablet 1 Tab PO PRN Q4HRS PRN NITROGLYCERIN SubLingual (Nitroglycerin) 0.4 Mg Tab.subl 0.4 Mg SL PRN Q5MIN PRN Citalopram Hbr (Citalopram Hydrobromide) 40 Mg Tablet 40 Mg PO HS Protonix (Pantoprazole Sodium) 20 Mg Tablet.dr 40 Mg PO DAILY Docusate Sodium 100 Mg Capsule 1 Cap PO DAILY Divalproex Sodium 500 Mg Tablet.dr 2 Tab PO BID Aspirin 81 Mg Tab.chew 1 Tab PO DAILY Amitiza (Lubiprostone) 24 Mcg Capsule 1 Cap PO DAILY Norvasc (Amlodipine Besylate) 10 Mg Tablet 10 Mg PO DAILY Renvela (Sevelamer Carbonate) 800 Mg Tablet 800 Mg PO TIDWMEALS Allergies Allergies: Coded Allergies: hydromorphone (Verified Allergy, Severe, Anaphylaxis, 06/24/20) morphine ok ROS Review of System Review of systems negative for chest pain shortness of breath vomiting fevers chills. a 14 point review of systems is otherwise negnegative. General: No: Chills, Night Sweats, Fatigue, Malaise, Appetite, Other PSYCHOLOGICAL ROS: No: Anxiety, Behavioral Disorder, Concentration difficultie, Decreased libido, Depression, Disorientation, Hallucinations, Hostility, Irritablity, Memory difficulties, Mood Swings, Obsessive thoughts, Physical abuse, Sexual abuse, Sleep disturbances, Suicidal ideation, Other Eyes: No Blurry vision, No Decreased vision, No Double vision, No Dry eyes, No Excessive tearing, No Eye Pain, No Itchy Eyes, No Loss of vision, No Photophobia, No Scotomata, No Uses contacts, No Uses glasses, No Other HEENT: No: Heacaches, Visual Changes, Hearing change, Nasal congestion, Nasal discharge, Oral lesions, Sinus pain, Sore Throat, Epistaxis, Sneezing, Snoring, Tinnitus, Vertigo, Vocal changes, Other Hematological and Lymphatic: No: Bleeding Problems, Blood Clots, Blood Transfusions, Brusing, Night Sweats, Pallor, Swollen Lymph Nodes, Other ENDOCRINE: No: Breast Changes, Galactorrhea, Hair Pattern Changes, Hot Flashes, Malaise/lethargy, Mood Swings, Palpitations, Polydipsia/polyuria, Skin Changes, Temperature Intolerance, Unexpected Weight Changes, Other Breast: No New/Changing Breast Lumps, No Nipple changes, No Nipple discharge, No Other Respiratory: No: Cough, Hemoptysis, Orthopnea, Pleuritic Pain, Shortness of breath, SOB with excertion, Sputum Changes, Stridor, Tachypnea, Wheezing, Other Cardiovascular: No Chest Pain, No Palpitations, No Orthopnea, No Paroxysmal Noc. Dyspnea, No Edema, No Lt Headedness, No Other Gastrointestinal: Yes Nausea; No Vomiting, No Abdominal Pain, No Diarrhea, No Constipation, No Melena, No Hematochezia, No Other Genitourinary: No Dysuria, No Frequency, No Incontinence, No Hematuria, No Retention, No Discharge, No Urgency, No Pain, No Flank Pain, No Other, No , No , No , No , No , No , No Neurological: No Behavorial Changes, No Bowel/Bladder ControlChng, No Confusion, No Dizziness, No Gait Disturbance, No Headaches, No Impaired Coord/balance, No Memory Loss, No Numbness/Tingling, No Seizures, No Speech Problems, No Tremors, No Visual Changes, No Weakness, No Other Skin: No Dry Skin, No Eczema, No Hair Changes, No Lumps, No Mole Changes, No Mottling, No Nail Changes, No Pruritus, No Rash, No Skin Lesion Changes, No Other, No Acne Physical Exam Physical Exam General: Alert, Oriented X3, Cooperative, No acute distress Heart: Regular rate, Normal S1 Lungs: Clear Abdomen: Normal bowel sounds, Soft, No tenderness Extremities: No clubbing, No cyanosis Skin: No rashes Eyes: PERRLA, EOMI, conjunctiva normal, no discharge. [] Neck: Normal range of motion, no tenderness, supple, no stridor. [] Cardiovascular:Heart rate regular rhythm, no murmur [] Lungs & Thorax: Bilateral breath sounds clear to auscultation [] Abdomen: Bowel sounds normal, soft, no tenderness, no masses, no pulsatile masses. [] Skin: Warm, dry, no erythema, no rash. [] Back: No tenderness, no CVA tenderness. [] Extremities: No tenderness, no cyanosis, no clubbing, ROM intact, no edema. [] Neurologic: Alert and oriented X 3, normal motor function, normal sensory function, no focal deficits noted. [] Psychologic: Affect normal, judgment normal, mood normal. [] General: Alert, Oriented X3, Cooperative, No acute distress HEENT: Atraumatic, EOMI, Mucous membr. moist/pink Lungs: Clear to auscultation, Normal air movement Heart: RRR, no thrills, no gallops Breasts: Not examined Abdomen: Normal bowel sounds, Soft Rectal Exam: not examined PELVIC: Examination not indicated Extremities: No cyanosis Neuro: Normal speech, Cranial nerves 3-12 NL Psych/Mental Status: Mental status NL, Mood NL Vitals Vitals Vital Signs Date Time Temp Pulse Resp B/P (MAP) Pulse Ox O2 Delivery O2 Flow Rate FiO2 08/21/20 10:08 76 26 138/66 (90) 94 Room Air 08/21/20 09:24 98.5 98.5 Labs Labs Laboratory Tests Test 08/21/20 09:45 08/21/20 10:05 Glucose (Fingerstick) 183 mg/dL (70-99) White Blood Count 9.3 x10^3/uL (4.0-11.0) Red Blood Count 3.62 x10^6/uL (4.30-5.70) Hemoglobin 11.4 g/dL (13.0-17.5) Hematocrit 34.1 % (39.0-53.0) Mean Corpuscular Volume 94 fL (79-100) Mean Corpuscular Hemoglobin 32 pg (25-35) Mean Corpuscular Hemoglobin Concent 33 g/dL (31-37) Red Cell Distribution Width 13.8 % (11.5-14.5) Platelet Count 242 x10^3/uL (140-400) Neutrophils (%) (Auto) 72 % (31-73) Lymphocytes (%) (Auto) 15 % (24-48) Monocytes (%) (Auto) 10 % (0-9) Eosinophils (%) (Auto) 1 % (0-3) Basophils (%) (Auto) 1 % (0-3) Neutrophils # (Auto) 6.7 x10^3/uL (1.8-7.7) Lymphocytes # (Auto) 1.4 x10^3/uL (1.0-4.8) Monocytes # (Auto) 1.0 x10^3/uL (0.0-1.1) Eosinophils # (Auto) 0.1 x10^3/uL (0.0-0.7) Basophils # (Auto) 0.1 x10^3/uL (0.0-0.2) Sodium Level 138 mmol/L (136-145) Potassium Level 3.6 mmol/L (3.5-5.1) Chloride Level 98 mmol/L (98-107) Carbon Dioxide Level 29 mmol/L (21-32) Anion Gap 11 (6-14) Blood Urea Nitrogen 27 mg/dL (8-26) Creatinine 5.1 mg/dL (0.7-1.3) Estimated GFR (Cockcroft-Gault) 12.0 Glucose Level 186 mg/dL (70-99) Calcium Level 8.8 mg/dL (8.5-10.1) Total Bilirubin 0.2 mg/dL (0.2-1.0) Direct Bilirubin 0.1 mg/dL (0.0-0.2) Aspartate Amino Transf (AST/SGOT) 26 U/L (15-37) Alanine Aminotransferase (ALT/SGPT) 17 U/L (16-63) Alkaline Phosphatase 144 U/L (46-116) Troponin I Quantitative 0.027 ng/mL (0.000-0.055) CW-Kmo-R-Type Natriuretic Peptide 50644 pg/mL (0-124) Total Protein 7.2 g/dL (6.4-8.2) Albumin 2.8 g/dL (3.4-5.0) Lipase 166 U/L (73-393) Laboratory Tests Test 08/21/20 09:45 08/21/20 10:05 Glucose (Fingerstick) 183 mg/dL (70-99) White Blood Count 9.3 x10^3/uL (4.0-11.0) Red Blood Count 3.62 x10^6/uL (4.30-5.70) Hemoglobin 11.4 g/dL (13.0-17.5) Hematocrit 34.1 % (39.0-53.0) Mean Corpuscular Volume 94 fL (79-100) Mean Corpuscular Hemoglobin 32 pg (25-35) Mean Corpuscular Hemoglobin Concent 33 g/dL (31-37) Red Cell Distribution Width 13.8 % (11.5-14.5) Platelet Count 242 x10^3/uL (140-400) Neutrophils (%) (Auto) 72 % (31-73) Lymphocytes (%) (Auto) 15 % (24-48) Monocytes (%) (Auto) 10 % (0-9) Eosinophils (%) (Auto) 1 % (0-3) Basophils (%) (Auto) 1 % (0-3) Neutrophils # (Auto) 6.7 x10^3/uL (1.8-7.7) Lymphocytes # (Auto) 1.4 x10^3/uL (1.0-4.8) Monocytes # (Auto) 1.0 x10^3/uL (0.0-1.1) Eosinophils # (Auto) 0.1 x10^3/uL (0.0-0.7) Basophils # (Auto) 0.1 x10^3/uL (0.0-0.2) Sodium Level 138 mmol/L (136-145) Potassium Level 3.6 mmol/L (3.5-5.1) Chloride Level 98 mmol/L (98-107) Carbon Dioxide Level 29 mmol/L (21-32) Anion Gap 11 (6-14) Blood Urea Nitrogen 27 mg/dL (8-26) Creatinine 5.1 mg/dL (0.7-1.3) Estimated GFR (Cockcroft-Gault) 12.0 Glucose Level 186 mg/dL (70-99) Calcium Level 8.8 mg/dL (8.5-10.1) Total Bilirubin 0.2 mg/dL (0.2-1.0) Direct Bilirubin 0.1 mg/dL (0.0-0.2) Aspartate Amino Transf (AST/SGOT) 26 U/L (15-37) Alanine Aminotransferase (ALT/SGPT) 17 U/L (16-63) Alkaline Phosphatase 144 U/L (46-116) Troponin I Quantitative 0.027 ng/mL (0.000-0.055) ZB-Pzn-S-Type Natriuretic Peptide 84715 pg/mL (0-124) Total Protein 7.2 g/dL (6.4-8.2) Albumin 2.8 g/dL (3.4-5.0) Lipase 166 U/L (73-393) Images Images FINDINGS: This is a nongated study. CARDIOVASCULAR: Pulsation artifact at the aortic root is present. 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 Three-vessel arch with normal caliber at 2.9 cm. No dissection flap, flow-limiting stenosis, aneurysm or occlusion is apparent.. The descending thoracic aorta is normal in caliber as well at 2.8 cm and shows no filling defect suspicious for dissection. No periaortic soft tissue stranding. The celiac axis is widely patent. The SMA is also patent. Mixed calcified and noncalcified plaque near the SMA origin is present without evidence of hemodynamically significant stenosis. Single renal arteries bilaterally are patent although mixed ossified noncalcified plaque at the origin of the right renal artery could result in hemodynamically significant stenosis. This can be confirmed with renal arterial Doppler ultrasound if indicated. The IRINA is patent. Circumferential calcified and noncalcified plaque in the proximal right common iliac artery is present. No flow-limiting stenosis. MEDIASTINUM & JERRICA: No adenopathy or masses. LUNGS: Platelike atelectasis in the posterior basal left lower lobe. A 5 mm pulmonary nodule in the left lower lobe posteriorly shows central calcification, compatible with a benign granuloma. Calcified 4 mm nodules in the right upper and right middle lobes are also noted. PLEURAL SPACE: No pleural effusions or pneumothorax. OSSEOUS & SOFT TISSUE: Unremarkable ABDOMEN: Cholecystectomy. No biliary dilation. Liver, spleen, pancreas, adrenal glands are unremarkable. Both kidneys show mild perirenal soft tissue stranding but symmetric enhancement. IVC is unremarkable. Multiple mildly prominent retroperitoneal lymph nodes are present around the abdominal aorta. No bulky adenopathy. Bowel shows no findings of obstruction, perforation or acute inflammation. Appendix is not imaged. Bones show no aggressive appearing osseous lesions. IMPRESSION: 1. Post CABG surgical changes with normal caliber thoracic aorta showing no evidence of aneurysm, hemodynamically significant flow limiting stenosis or evidence of dissection. 2. There may be hemodynamically significant stenosis of the origin of the right renal artery. This can be evaluated further with renal arterial Doppler ultrasound if clinically warranted. Mild bilateral perirenal soft tissue stranding is nonspecific and can reflect chronic kidney disease, and in the appropriate clinical context, pyelonephritis. Electronically signed by: Milagros Lerner MD (03/14/2020 8:51 AM) [id number] DICTATED and SIGNED BY: MILAGROS LERNER MD DATE: 03/14/20 0851 VTE Prophylaxis Ordered VTE Prophylaxis Devices: No VTE Pharmacological Prophylaxi: Yes Assessment/Plan Assessment/Plan impression recurrent severe hypoglycemia End-stage renal disease on hemodialysis Type 2 diabetes with insulin dependence obesity hyponatremia 10-10 gerd REMOTE CABG hypertension tobacco abuse disorder plan ADMIT d/c current insulin regimen ss insulin protocol CONSULT NEPHROLOGY SQ HEPARIN DVT prophylaxis nutrition consult Justifications for Admission Other Justification SALOMÓN HADDAD MD Aug 21, 2020 13:05
[2020-08-21 15:15] VITALS: BP 168/79
[2020-08-21] MEDS ORDERED: FLU VACC QS 2020-21(6MOS+)/PF 0.5 ML SYRINGE. VAX IM ONE (16:45)
[2020-08-21] MEDS ORDERED: NITROGLYCERIN SUBLINGUAL 0.4 MG BOTTLE OF 25. SL PRN (19:00)
[2020-08-21] MEDS ORDERED: ONDANSETRON ODT 4 MG TAB.RAPDIS. PO PRN ×2 (19:15)
[2020-08-21 19:25] VITALS: BP 165/72
[2020-08-21] MEDS ORDERED: DEXTROSE 50% 25 GM / 50ML DISP.SYRIN. IV PRN ×2 (19:30→22:30)
[2020-08-21] MEDS: GABAPENTIN 100 MG CAPSULE. PO SCH (20:55)
[2020-08-21] MEDS: DIVALPROEX DELAYED RELEASE 500 MG TABLET.DR. PO SCH (20:56)
[2020-08-21] MEDS: RANOLAZINE 500 MG TAB.ER.12H PO SCH (20:57)
[2020-08-21] MEDS: CARVEDILOL 12.5 MG TABLET. PO SCH (20:57)
[2020-08-21] MEDS: DICLOFENAC SODIUM 1% TOPICAL GEL 100GM TUBE. TP SCH (20:59)
[2020-08-21] MEDS ORDERED: INSULIN GLARGINE SYRINGE. SQ SCH (21:00)
[2020-08-21] MEDS ORDERED: ATORVASTATIN CALCIUM 40 MG TABLET. PO SCH (21:00)
[2020-08-21] MEDS ORDERED: CITALOPRAM 20 MG TABLET. PO SCH (21:00)
[2020-08-21] MEDS: oxyCODONE/APAP 10/325 1 TAB TABLET PO PRN (21:10)
[2020-08-21] MEDS ORDERED: cloNIDine HCL 0.1 MG TABLET PO PRN (22:30)
[2020-08-21] MEDS ORDERED: guaiFENesin ORAL 200 MG/10 ML LIQUID. PO PRN (22:30)
[2020-08-21] MEDS ORDERED: ACETAMINOPHEN 325 MG TABLET. PO PRN (22:30)
[2020-08-21] MEDS ORDERED: 0.9 % SODIUM CHLORIDE 10 ML DISP.SYRIN. IV PRN (22:30)
[2020-08-21] MEDS ORDERED: ALBUTEROL SULFATE 2.5 MG/3 ML NEBU. NEB PRN (22:30)
[2020-08-21] MEDS ORDERED: DOCUSATE SODIUM 100 MG CAPSULE. PO PRN (22:30)
[2020-08-21] MEDS: HEPARIN for SUB-Q USE 5,000 UNIT/ML VIAL. SQ SCH (22:42)
[2020-08-21 23:16] VITALS: BP 117/96
[2020-08-22 03:10] VITALS: BP 112/51
[2020-08-22] MEDS: oxyCODONE/APAP 10/325 1 TAB TABLET PO PRN (04:55)
[2020-08-22] MEDS: HEPARIN for SUB-Q USE 5,000 UNIT/ML VIAL. SQ SCH (06:10)
[2020-08-22 07:00] VITALS: BP 168/75
[2020-08-22] MEDS ORDERED: PANTOPRAZOLE 40 MG TABLET.DR. PO SCH (07:30)
[2020-08-22] MEDS: INSULIN LISPRO 300 UNITS/3 ML VIAL. SQ SCH ×2 (08:00→12:00)
[2020-08-22] MEDS ORDERED: INSULIN LISPRO 300 UNITS/3 ML VIAL. SQ SCH (08:00)
[2020-08-22] MEDS: GABAPENTIN 100 MG CAPSULE. PO SCH (08:10)
[2020-08-22] MEDS: SEVELAMER CARBONATE 800 MG TABLET. PO SCH ×2 (08:10→12:00)
[2020-08-22] MEDS: DIVALPROEX DELAYED RELEASE 500 MG TABLET.DR. PO SCH (08:11)
[2020-08-22] MEDS: RANOLAZINE 500 MG TAB.ER.12H PO SCH (08:13)
[2020-08-22] MEDS: CARVEDILOL 12.5 MG TABLET. PO SCH (08:13)
[2020-08-22] MEDS ORDERED: LISINOPRIL 20 MG TABLET PO SCH (09:00)
[2020-08-22] MEDS ORDERED: DOCUSATE SODIUM 100 MG CAPSULE. PO SCH (09:00)
[2020-08-22] MEDS ORDERED: ASPIRIN CHEWABLE 81 MG TABLET. PO SCH (09:00)
[2020-08-22] MEDS ORDERED: amLODIPine BESYLATE 10 MG TABLET PO SCH (09:00)
[2020-08-22] MEDS ORDERED: FOLIC/VIT B COMP W-C (RENAL) TABLET. PO SCH (09:00)
[2020-08-22] MEDS: DICLOFENAC SODIUM 1% TOPICAL GEL 100GM TUBE. TP SCH (09:00)
[2020-08-22] MEDS ORDERED: LUBIPROSTONE 24 MCG CAPSULE PO SCH (09:00)
--- NOTE | 2020-08-22 10:08 | NUR ---
SW following. Discussed with RN, pt from home with , room air, renal diet. Pt wanting to go home today. RN advised pt is independent, no SW needs. Anticipates discharge home today. SW will continue to follow.
--- NOTE | 2020-08-22 10:10 | PDOC ---
PROGRESS NOTES Date of Service: DATE: 08/22/20 TIME: 10:09 Chief Complaint Chief Complaint VTE Prophylaxis Ordered VTE Prophylaxis Devices: No VTE Pharmacological Prophylaxi: Yes discharge dx left ama 08-22 Assessment/Plan impression recurrent severe hypoglycemia End-stage renal disease on hemodialysis Type 2 diabetes with insulin dependence obesity hyponatremia 08-09 gerd REMOTE CABG hypertension tobacco abuse disorder plan ADMIT d/c current insulin regimen ss insulin protocol CONSULT NEPHROLOGY SQ HEPARIN DVT prophylaxis nutrition consult DIETARY COUNSELING, left ama Justifications for Admission Justifications for Admission Other Justification History of Present Illness History of Present Illness Identification/Chief Complaint Chief Complaint 54-year-old male presented [facility] department with hypoglycemia, sugar was in the 40s when he called paramedics who gave him oral glucose and a jelly sandwich , He is now awake and oriented and comes in without any complaints. He had this happened yesterday and was discharged and recently was in the hospital about a week ago. on 08-20 he changed his long-acting insulin and decreased his dose with second episode of hypoglycemia in the last 48 hours , we will admit him to the hospital for monitoring and adjustment of his insulin need Past Medical History Past Medical History Past Medical History Past Medical History: Anxiety, CAD, Cancer, CHF, Diabetes-Type II, High Cholesterol, Heart Disease, Hypertension, ME, Pneumonia, Renal Disease, Renal Failure, Seizure, Other Additional Past Medical Histor: dialysis; chronic back pain Past Surgical History: Cholecystectomy, Coronary Bypass Surgery Additional Past Surgical Histo: HERNIA, peritoneal dialysis cath Smoking Status: Current Every Day Smoker Additional Information: 1 PPD Alcohol Use: None Drug Use: None fhx htn Cardiovascular: CAD, CHF, HTN, Hyperlipidemia, Other Pulmonary: Bronchitis, Pulmonary embolus, Pneumonia, Other CENTRAL NERVOUS SYSTEM: CVA, Periperal neuropathy, Other GI: GERD, Other Heme/Onc: Cancer Psych: Depression Renal/: Chronic renal failure Endocrine: Diabetes, Hyperparathyroidism Past Surgical History Past Surgical History: Cholecystectomy, CABG, Tonsillectomy, Other Family History Family History: High Cholestrol, Hypertension, Kidney Disease Social History Smoke: <1 pack per day ALCOHOL: none Drugs: Other Current Medications Current Medications Vitals Vitals Vital Signs Date Time Temp Pulse Resp B/P (MAP) Pulse Ox O2 Delivery O2 Flow Rate FiO2 08/22/20 08:14 71 168/75 08/22/20 07:30 Room Air 08/22/20 07:00 97.8 18 94 97.8 Physical Exam General: Alert, Oriented X3, Cooperative, No acute distress Heart: Regular rate Lungs: Clear Abdomen: Normal bowel sounds, Soft, No tenderness Extremities: No cyanosis Skin: No rashes, No significant lesion Labs LABS DPOA REVIEW 18 MIN to patient portal What Is a Power of Certified Personal Chef? A power of rn cardiac (POA) is a legal document giving one person (the agent or [id number]) the power to act for another person (the principal). The agent can have broad legal authority or limited authority to make legal decisions about the principal's property, finances or medical care. The power of rn cardiac is frequently used in the event of a principal's illness or disability, or when the principal can't be present to sign necessary legal documents for financial transactions. A power of rn cardiac can end for a number of reasons, such as when the principal dies, the principal revokes it, a court invalidates it, the principal divorces t heir spouse, who happens to be the agent, or the agent can no longer carry out the outlined responsibilities. Conventional POAs lapse when the creator becomes incapacitated, but a durable POA remains in force to enable the agent to manage the creators affairs, and a springing POA comes into effect only if and when the creator of the POA becomes incapacitated. A medical or healthcare POA enables an agent to make medical decisions on behalf of an incapacitated person. [employer] A power of rn cardiac (POA) is a legal document giving one person, the agent or [id number] the power to act for another person, the principal. The agent can have broad legal authority or limited authority to make decisions about the principal's property, finances or medical care. The power of rn cardiac is often used when a principal becomes ill or disabled, or when they can't be present to sign necessary legal documents for financial transactions. Understanding Power of Certified Personal Chef A power of rn cardiac should be considered when planning for long-term care. There are different types of POAs that fall under either a general power of rn cardiac or limited power of rn cardiac. A general power of rn cardiac acts on behalf of the principal in any and all matters, as allowed by the state. The agent under a general POA agreement may be authorized to take care of issues such as handling bank accounts, signing checks, selling property and assets like stocks, f A limited power of rn cardiac gives the agent the power to act on behalf of the principal in specific matters or events. For example, the limited POA may explicitly state that the agent is only allowed to manage the principal's nursing home accounts. A limited POA may also be limited to a specific period of time (e.g., if the principal will be out of the country for, say, two years). Most freed of rn cardiac documents allow an agent to represent the principal in all property and financial matters as long as the principals mental state of mind is good. If a situation occurs where the principal becomes incapable of making decisions for him or herself, the POA agreement would automatically end. However, someone who wants the POA to remain in effect after the persons health deteriorates would need to sign a durable power of rn cardiac (DPOA). What is an advance directive? An advance directive is a legal document that says how you want to be cared for if you are unable to make decisions. You can include what medical treatments you would want and who you would trust to make decisions for you. An advance directive can also include other legal documents. A living will is a list of treatment preferences. It can be used to indicate whether you would want cardiopulmonary resuscitation (CPR), tube feedings, a breathing machine, or certain medicines, like antibiotics. The durable power of rn cardiac for health care document identifies the person you would want to make medical decisions for you. This person is also called a proxy. Your proxy should be familiar with your values and wishes. How do I get started? You can get advance directive documents for your state from your doctor's office or from http://www.caringinfo.org. Review the forms, and ask your doctor if you have any questions. Pick a person to be your proxy, and talk it over with that person. Laboratory Tests Test 08/21/20 15:36 Glucose (Fingerstick) 98 mg/dL (70-99) Assessment and Plan Assessmemt and Plan Problems Medical Problems: (1) Hypoglycemia Status: Acute Comment Review of Relevant I have reviewed the following items nelda (where applicable) has been applied. Labs Laboratory Tests Test 08/21/20 09:45 08/21/20 10:05 08/21/20 15:36 Glucose (Fingerstick) 183 mg/dL (70-99) 98 mg/dL (70-99) White Blood Count 9.3 x10^3/uL (4.0-11.0) Red Blood Count 3.62 x10^6/uL (4.30-5.70) Hemoglobin 11.4 g/dL (13.0-17.5) Hematocrit 34.1 % (39.0-53.0) Mean Corpuscular Volume 94 fL (79-100) Mean Corpuscular Hemoglobin 32 pg (25-35) Mean Corpuscular Hemoglobin Concent 33 g/dL (31-37) Red Cell Distribution Width 13.8 % (11.5-14.5) Platelet Count 242 x10^3/uL (140-400) Neutrophils (%) (Auto) 72 % (31-73) Lymphocytes (%) (Auto) 15 % (24-48) Monocytes (%) (Auto) 10 % (0-9) Eosinophils (%) (Auto) 1 % (0-3) Basophils (%) (Auto) 1 % (0-3) Neutrophils # (Auto) 6.7 x10^3/uL (1.8-7.7) Lymphocytes # (Auto) 1.4 x10^3/uL (1.0-4.8) Monocytes # (Auto) 1.0 x10^3/uL (0.0-1.1) Eosinophils # (Auto) 0.1 x10^3/uL (0.0-0.7) Basophils # (Auto) 0.1 x10^3/uL (0.0-0.2) Sodium Level 138 mmol/L (136-145) Potassium Level 3.6 mmol/L (3.5-5.1) Chloride Level 98 mmol/L (98-107) Carbon Dioxide Level 29 mmol/L (21-32) Anion Gap 11 (6-14) Blood Urea Nitrogen 27 mg/dL (8-26) Creatinine 5.1 mg/dL (0.7-1.3) Estimated GFR (Cockcroft-Gault) 12.0 Glucose Level 186 mg/dL (70-99) Calcium Level 8.8 mg/dL (8.5-10.1) Total Bilirubin 0.2 mg/dL (0.2-1.0) Direct Bilirubin 0.1 mg/dL (0.0-0.2) Aspartate Amino Transf (AST/SGOT) 26 U/L (15-37) Alanine Aminotransferase (ALT/SGPT) 17 U/L (16-63) Alkaline Phosphatase 144 U/L (46-116) Troponin I Quantitative 0.027 ng/mL (0.000-0.055) XB-Qxh-A-Type Natriuretic Peptide 26114 pg/mL (0-124) Total Protein 7.2 g/dL (6.4-8.2) Albumin 2.8 g/dL (3.4-5.0) Lipase 166 U/L (73-393) Laboratory Tests Test 08/21/20 15:36 Glucose (Fingerstick) 98 mg/dL (70-99) Medications Current Medications Influenza Virus Vaccine Quadrival (Fluzone Quad [id number] Syringe) 0.5 ml ONCE ONCE VAX IM Last administered on 08/22/20at 09:30; Start 08/21/20 at 16:45; Stop 08/21/20 at 16:46; Status DC Amlodipine Besylate (Norvasc) 10 mg DAILY PO Last administered on 08/22/20at 08:14; Start 08/22/20 at 09:00 Aspirin (Aspirin Chewable) 81 mg DAILY PO Last administered on 08/22/20at 08:10; Start 08/22/20 at 09:00 Atorvastatin Calcium (Lipitor) 40 mg QHS PO Last administered on 08/21/20at 20:56; Start 08/21/20 at 21:00 Carvedilol (Coreg) 25 mg BIDWMEALS PO Last administered on 08/22/20at 08:13; Start 08/21/20 at 21:00 Divalproex Sodium (Depakote) 1,000 mg BID PO Last administered on 08/22/20 08:11; Start 08/21/20 at 21:00 Docusate Sodium (Colace) 100 mg DAILY PO Last administered on 08/22/20at 08:11; Start 08/22/20 at 09:00 Vitamin B Complex/ Vitamin C (Gissel-Irvin) 1 tab DAILY PO Last administered on 08/22/20at 08:10; Start 08/22/20 at 09:00 Gabapentin (Neurontin) 100 mg TID PO Last administered on 08/22/20 08:10; Start 08/21/20 at 21:00 Hydralazine HCl (Apresoline) 50 mg BID PO Last administered on 08/22/20 08:12; Start 08/21/20 at 21:00 Lisinopril (Prinivil) 20 mg DAILY PO Last administered on 08/22/20at 08:12; Start 08/22/20 at 09:00 Lubiprostone (Amitiza) 24 mcg DAILY PO Last administered on 08/22/20at 08:10; Start 08/22/20 at 09:00 Nitroglycerin (Nitrostat) 0.4 mg PRN Q5MIN PRN SL CHEST PAIN; Start 08/21/20 at 19:00 Oxycodone/ Acetaminophen (Percocet 10/325) 1 tab QIDPRN PRN PO PAIN Last administered on 08/22/20at 04:55; Start 08/21/20 at 19:00 Ranolazine (Ranexa) 500 mg BID PO Last administered on 08/22/20at 08:13; Start 08/21/20 at 21:00 Sevelamer Carbonate (Renvela) 800 mg TIDWMEALS PO Last administered on 08/22/20 08:10; Start 08/22/20 at 08:00 Citalopram Hydrobromide (CeleXA) 40 mg QHS PO Last administered on 08/21/20at 20:55; Start 08/21/20 at 21:00 Ondansetron HCl (Zofran Odt) 4 mg PRN Q4HRS PRN PO NAUSEA/VOMITING; Start 08/21/20 at 19:15; Stop 08/21/20 at 19:08; Status DC Pantoprazole Sodium (Protonix) 40 mg DAILYAC PO Last administered on 08/22/20at 08:12; Start 08/22/20 at 07:30 Diclofenac Sodium (Voltaren) 1 christo BID TP Last administered on 08/21/20at 20:59; Start 08/21/20 at 21:00 Ondansetron HCl (Zofran Odt) 4 mg PRN Q4HRS PRN PO NAUSEA/VOMITING; Start 08/21/20 at 19:15 Insulin Glargine (Lantus Syringe) 25 unit QHS SQ Last administered on 08/21/20at 21:00; Start 08/21/20 at 21:00 Insulin Human Lispro (HumaLOG) 0-5 UNITS TIDWMEALS SQ ; Start 08/22/20 at 08:00; Stop 08/21/20 at 22:22; Status DC Dextrose (Dextrose 50%-Water Syringe) 12.5 gm PRN Q15MIN PRN IV SEE COMMENTS; Start 08/21/20 at 19:30; Stop 08/21/20 at 22:22; Status DC Insulin Human Lispro (HumaLOG) 0-5 UNITS TIDWMEALS SQ ; Start 08/22/20 at 08:00 Dextrose (Dextrose 50%-Water Syringe) 12.5 gm PRN Q15MIN PRN IV SEE COMMENTS; Start 08/21/20 at 22:30 Heparin Sodium (Porcine) (Heparin Sodium) 5,000 unit Q8HRS SQ Last administered on 08/22/20at 06:10; Start 08/21/20 at 23:00 Sodium Chloride (Normal Saline Flush) 3 ml QSHIFT PRN IV AFTER MEDS AND BLOOD DRAWS; Start 08/21/20 at 22:30 Acetaminophen (Tylenol) 650 mg PRN Q4HRS PRN PO TEMP OVER 100.4F OR MILD PAIN; Start 08/21/20 at 22:30 Clonidine HCl (Catapres) 0.1 mg PRN Q6HRS PRN PO SBP>160 OR DBP>90; Start 08/21/20 at 22:30 Docusate Sodium (Colace) 100 mg PRN BID PRN PO HARD STOOLS; Start 08/21/20 at 22:30 Albuterol Sulfate (Ventolin Neb Soln) 2.5 mg PRN Q4HRS PRN NEB SHORTNESS OF BREATH; Start 08/21/20 at 22:30 Guaifenesin (Robitussin) 200 mg PRN Q4HRS PRN PO COUGH; Start 08/21/20 at 22:30 Active Scripts Active Tylenol (Acetaminophen) 325 Mg Tablet 650 Mg PO PRN Q6HRS PRN 14 Days Carvedilol (Carvedilol) 12.5 Mg Tablet 25 Mg PO BIDWMEALS 30 Days Hydralazine Hcl 50 Mg Tablet 50 Mg PO BID 30 Days Atorvastatin Calcium 40 Mg Tablet 40 Mg PO QHS 30 Days Gabapentin (Gabapentin) 100 Mg Capsule 100 Mg PO TID 30 Days [Diclofenac Sodium] 100 GM Gel..gram. 1 Christo TP BID 30 Days Reported Percocet 10-325 Mg Tablet (Oxycodone/Acetaminophen) 1 Each Tablet 1 Tab PO QIDPRN PRN MDD 4 Tablet(s) Tresiba (Insulin Degludec) 100 Unit/1 Ml Vial 42 Unit SQ HS Ranexa (Ranolazine) 500 Mg Tab.er.12h 500 Mg PO BID Renal-Irvin Tablet (Folic Acid/Vit Bcomp,C) 0.8 Mg Tablet 0.8 Mg PO DAILY Novolog (Insulin Aspart) 100 Unit/1 Ml Vial 0 SQ PRN TID PRN Lisinopril 20 Mg Tablet 20 Mg PO DAILY Zofran (Ondansetron Hcl) 4 Mg Tablet 1 Tab PO PRN Q4HRS PRN NITROGLYCERIN SubLingual (Nitroglycerin) 0.4 Mg Tab.subl 0.4 Mg SL PRN Q5MIN PRN Citalopram Hbr (Citalopram Hydrobromide) 40 Mg Tablet 40 Mg PO HS Protonix (Pantoprazole Sodium) 20 Mg Tablet.dr 40 Mg PO DAILY Docusate Sodium 100 Mg Capsule 1 Cap PO DAILY Divalproex Sodium 500 Mg Tablet.dr 2 Tab PO BID Aspirin 81 Mg Tab.chew 1 Tab PO DAILY Amitiza (Lubiprostone) 24 Mcg Capsule 1 Cap PO DAILY Norvasc (Amlodipine Besylate) 10 Mg Tablet 10 Mg PO DAILY Renvela (Sevelamer Carbonate) 800 Mg Tablet 800 Mg PO TIDWMEALS Vitals/I & O Vital Sign - Last 24 Hours 08/21/20 08/21/20 08/21/20 08/21/20 11:26 11:35 12:05 12:35 Pulse 72 72 72 70 Resp 22 17 B/P (MAP) 99/64 (76) 125/70 (88) 120/70 (87) 129/60 (83) Pulse Ox 94 93 O2 Delivery Room Air Room Air Room Air Room Air 08/21/20 08/21/20 08/21/20 08/21/20 13:05 13:35 15:10 15:15 Temp 98.0 98.0 Pulse 70 74 74 76 Resp 19 15 18 B/P (MAP) 146/77 (100) 154/70 (98) 158/99 (118) 168/79 (108) Pulse Ox 97 98 O2 Delivery Room Air Room Air Room Air Room Air 08/21/20 08/21/20 08/21/20 08/21/20 18:23 19:25 20:00 20:56 Temp 98.3 98.3 Pulse 80 80 Resp 18 B/P (MAP) 165/72 (103) 165/72 Pulse Ox 92 O2 Delivery Room Air Room Air Room Air 08/21/20 08/21/20 08/21/20 08/21/20 20:57 20:57 21:10 22:36 Pulse 80 80 B/P (MAP) 165/72 165/72 O2 Delivery Room Air Room Air 08/21/20 08/22/20 08/22/20 08/22/20 23:16 03:10 04:55 05:55 Temp 98.1 98.2 98.1 98.2 Pulse 78 62 Resp 18 18 B/P (MAP) 117/96 (103) 112/51 (71) Pulse Ox 96 93 O2 Delivery Room Air Room Air Room Air Room Air 08/22/20 08/22/20 08/22/20 08/22/20 07:00 07:30 08:12 08:12 Temp 97.8 97.8 Pulse 71 71 71 Resp 18 B/P (MAP) 168/75 (106) 168/75 168/75 Pulse Ox 94 O2 Delivery Room Air Room Air 08/22/20 08/22/20 08/22/20 08:13 08:13 08:14 Pulse 71 71 71 B/P (MAP) 168/75 168/75 168/75 Intake and Output 08/21/20 08/21/20 08/22/20 15:00 23:00 07:00 Intake Total 360 ml Balance 360 ml Justicifation of Admission Dx: Justifications for Admission: Justification of Admission Dx: Yes Chronic Renal Failure: Hypertension Altered Mental Status: Altered Mental Status SALOMÓN HADDAD MD Aug 22, 2020 10:09
[2020-08-22 11:00] VITALS: BP 146/66
--- NOTE | 2020-08-22 12:27 | NUR ---
Patient left AMA accompanied by . Patient did not want to wait for security to come to accompany. Patient tried waiting for Dr. Armendariz to round to be discharged, but was tired of waiting due to having to be at dialysis at 1500. I tried to call to come see patient and even had the nursing manufacturing engineer supervisor call, but he was busy and said he would be here when he could get here. Addendum: 08/22/20 at 1231 by DELON STERN RN STAN sparks'quita by RAFAELA Bautista.
--- NOTE | 2020-08-22 12:50 | PDOC2 ---
CONSULT Date of Consult Date of Consult DATE: 08/22/20 TIME: 12:46 Reason for Consult Reason for Consult: ESRD Identification/Chief Complaint Chief Complaint "I want to go home' Source Source: Chart review, Patient History of Present Illness Reason for Visit: 54-year-old CM history of ESRD on hemodialysis TTS , CA, CAD, CHF, presented to ER with hypoglycemia, sugar was in the 40s when he called paramedics who gave him oral glucose and a jelly sandwich , He is without any complaints. He was recently was in the hospital about a week ago. on 08-20 he changed his long-acting insulin and decreased his dose with second episode of hypoglycemia in the last 48 hours , Currently he denies any complaints- No CP or SOB. No N/V/D. No abdominal pain. Had HD yesterday Left heart catheterization 04/29/2020, showed severe triple-vessel disease, 4 patent bypass grafts. Echocardiogram 07/18/2020 showed ejection fraction 55-60% Past Medical History Cardiovascular: CAD, CHF, HTN, Hyperlipidemia, Other Pulmonary: Bronchitis, Pulmonary embolus, Pneumonia, Other CENTRAL NERVOUS SYSTEM: CVA, Periperal neuropathy, Other GI: GERD, Other Heme/Onc: Cancer Psych: Depression Renal/: Chronic renal failure Endocrine: Diabetes, Hyperparathyroidism Past Surgical History Past Surgical History: Cholecystectomy, CABG, Tonsillectomy, Other Family History Family History: High Cholestrol, Hypertension, Kidney Disease Social History <1 pack per day ALCOHOL: none Drugs: Other Lives: with Family Current Problem List Problem List Problems Medical Problems: (1) Hypoglycemia Status: Acute Current Medications Current Medications Current Medications Influenza Virus Vaccine Quadrival (Fluzone Quad Syringe) 0.5 ml ONCE ONCE VAX IM Last administered on 08/22/20at 09:30; Start 08/21/20 at 16:45; Stop 08/21/20 at 16:46; Status DC Amlodipine Besylate (Norvasc) 10 mg DAILY PO Last administered on 08/22/20at 08:14; Start 08/22/20 at 09:00 Aspirin (Aspirin Chewable) 81 mg DAILY PO Last administered on 08/22/20at 08:10; Start 08/22/20 at 09:00 Atorvastatin Calcium (Lipitor) 40 mg QHS PO Last administered on 08/21/20at 20 :56; Start 08/21/20 at 21:00 Carvedilol (Coreg) 25 mg BIDWMEALS PO Last administered on 08/22/20 08:13; Start 08/21/20 at 21:00 Divalproex Sodium (Depakote) 1,000 mg BID PO Last administered on 08/22/20at 08:11; Start 08/21/20 at 21:00 Docusate Sodium (Colace) 100 mg DAILY PO Last administered on 08/22/20 08:11; Start 08/22/20 at 09:00 Vitamin B Complex/ Vitamin C (Gissel-Irvin) 1 tab DAILY PO Last administered on 08/22/20 08:10; Start 08/22/20 at 09:00 Gabapentin (Neurontin) 100 mg TID PO Last administered on 08/22/20 08:10; Start 08/21/20 at 21:00 Hydralazine HCl (Apresoline) 50 mg BID PO Last administered on 08/22/20 08:12; Start 08/21/20 at 21:00 Lisinopril (Prinivil) 20 mg DAILY PO Last administered on 08/22/20at 08:12; Start 08/22/20 at 09:00 Lubiprostone (Amitiza) 24 mcg DAILY PO Last administered on 08/22/20at 08:10; Start 08/22/20 at 09:00 Nitroglycerin (Nitrostat) 0.4 mg PRN Q5MIN PRN SL CHEST PAIN; Start 08/21/20 at 19:00 Oxycodone/ Acetaminophen (Percocet 10/325) 1 tab QIDPRN PRN PO PAIN Last administered on 08/22/20at 04:55; Start 08/21/20 at 19:00 Ranolazine (Ranexa) 500 mg BID PO Last administered on 08/22/20 08:13; Start 08/21/20 at 21:00 Sevelamer Carbonate (Renvela) 800 mg TIDWMEALS PO Last administered on at 08:10; Start 08/22/20 at 08:00 Citalopram Hydrobromide (CeleXA) 40 mg QHS PO Last administered on 08/21/20at 20:55; Start 08/21/20 at 21:00 Ondansetron HCl (Zofran Odt) 4 mg PRN Q4HRS PRN PO NAUSEA/VOMITING; Start 08/21/20 at 19:15; Stop 08/21/20 at 19:08; Status DC Pantoprazole Sodium (Protonix) 40 mg DAILYAC PO Last administered on 08/22/20at 08:12; Start 08/22/20 at 07:30 Diclofenac Sodium (Voltaren) 1 christo BID TP Last administered on 08/21/20at 20:59; Start 08/21/20 at 21:00 Ondansetron HCl (Zofran Odt) 4 mg PRN Q4HRS PRN PO NAUSEA/VOMITING; Start 08/21/20 at 19:15 Insulin Glargine (Lantus Syringe) 25 unit QHS SQ Last administered on 08/21/20at 21:00; Start 08/21/20 at 21:00 Insulin Human Lispro (HumaLOG) 0-5 UNITS TIDWMEALS SQ ; Start 08/22/20 at 08:00; Stop 08/21/20 at 22:22; Status DC Dextrose (Dextrose 50%-Water Syringe) 12.5 gm PRN Q15MIN PRN IV SEE COMMENTS; Start 08/21/20 at 19:30; Stop 08/21/20 at 22:22; Status DC Insulin Human Lispro (HumaLOG) 0-5 UNITS TIDWMEALS SQ ; Start 08/22/20 at 08:00 Dextrose (Dextrose 50%-Water Syringe) 12.5 gm PRN Q15MIN PRN IV SEE COMMENTS; Start 08/21/20 at 22:30 Heparin Sodium (Porcine) (Heparin Sodium) 5,000 unit Q8HRS SQ Last administered on 08/22/20at 06:10; Start 08/21/20 at 23:00 Sodium Chloride (Normal Saline Flush) 3 ml QSHIFT PRN IV AFTER MEDS AND BLOOD DRAWS; Start 08/21/20 at 22:30 Acetaminophen (Tylenol) 650 mg PRN Q4HRS PRN PO TEMP OVER 100.4F OR MILD PAIN; Start 08/21/20 at 22:30 Clonidine HCl (Catapres) 0.1 mg PRN Q6HRS PRN PO SBP>160 OR DBP>90; Start 08/21/20 at 22:30 Docusate Sodium (Colace) 100 mg PRN BID PRN PO HARD STOOLS; Start 08/21/20 at 22:30 Albuterol Sulfate (Ventolin Neb Soln) 2.5 mg PRN Q4HRS PRN NEB SHORTNESS OF BREATH; Start 08/21/20 at 22:30 Guaifenesin (Robitussin) 200 mg PRN Q4HRS PRN PO COUGH; Start 08/21/20 at 22:30 Active Scripts Active Tylenol (Acetaminophen) 325 Mg Tablet 650 Mg PO PRN Q6HRS PRN 14 Days Carvedilol (Carvedilol) 12.5 Mg Tablet 25 Mg PO BIDWMEALS 30 Days Hydralazine Hcl 50 Mg Tablet 50 Mg PO BID 30 Days Atorvastatin Calcium 40 Mg Tablet 40 Mg PO QHS 30 Days Gabapentin (Gabapentin) 100 Mg Capsule 100 Mg PO TID 30 Days [Diclofenac Sodium] 100 GM Gel..gram. 1 Christo TP BID 30 Days Reported Percocet 10-325 Mg Tablet (Oxycodone/Acetaminophen) 1 Each Tablet 1 Tab PO QIDPRN PRN MDD 4 Tablet(s) Tresiba (Insulin Degludec) 100 Unit/1 Ml Vial 42 Unit SQ HS Ranexa (Ranolazine) 500 Mg Tab.er.12h 500 Mg PO BID Renal-Irvin Tablet (Folic Acid/Vit Bcomp,C) 0.8 Mg Tablet 0.8 Mg PO DAILY Novolog (Insulin Aspart) 100 Unit/1 Ml Vial 0 SQ PRN TID PRN Lisinopril 20 Mg Tablet 20 Mg PO DAILY Zofran (Ondansetron Hcl) 4 Mg Tablet 1 Tab PO PRN Q4HRS PRN NITROGLYCERIN SubLingual (Nitroglycerin) 0.4 Mg Tab.subl 0.4 Mg SL PRN Q5MIN PRN Citalopram Hbr (Citalopram Hydrobromide) 40 Mg Tablet 40 Mg PO HS Protonix (Pantoprazole Sodium) 20 Mg Tablet.dr 40 Mg PO DAILY Docusate Sodium 100 Mg Capsule 1 Cap PO DAILY Divalproex Sodium 500 Mg Tablet.dr 2 Tab PO BID Aspirin 81 Mg Tab.chew 1 Tab PO DAILY Amitiza (Lubiprostone) 24 Mcg Capsule 1 Cap PO DAILY Norvasc (Amlodipine Besylate) 10 Mg Tablet 10 Mg PO DAILY Renvela (Sevelamer Carbonate) 800 Mg Tablet 800 Mg PO TIDWMEALS Allergies Allergies: Coded Allergies: hydromorphone (Verified Allergy, Severe, Anaphylaxis, 06/24/20) morphine ok ROS Review of System Per HPI, rest of the ROS is negative Physical Exam Physical Exam Physical Exam GENERAL: NAD HEENT: OM moist NECK: supple CARDIOVASCULAR: S1, S2. LUNGS: CTA , Non labored ABDOMEN: Soft, obese , : No Hale. EXTREMITIES: no edema NEURO- Grossly normal DERM No Rash : Vital Signs Vital Signs Date Time Temp Pulse Resp B/P (MAP) Pulse Ox O2 Delivery O2 Flow Rate FiO2 08/22/20 11:00 97.8 73 18 146/66 (92) 93 Room Air 97.8 Assessment & Plan ESRD:On HD TTS under Dr Hernandez Dialyzed yesterday a currently no indication for HD HypoGlycemia- Primary managing DC per primary Labs Labs Laboratory Tests Test 08/21/20 09:45 08/21/20 10:05 08/21/20 15:36 Glucose (Fingerstick) 183 mg/dL (70-99) 98 mg/dL (70-99) White Blood Count 9.3 x10^3/uL (4.0-11.0) Red Blood Count 3.62 x10^6/uL (4.30-5.70) Hemoglobin 11.4 g/dL (13.0-17.5) Hematocrit 34.1 % (39.0-53.0) Mean Corpuscular Volume 94 fL (79-100) Mean Corpuscular Hemoglobin 32 pg (25-35) Mean Corpuscular Hemoglobin Concent 33 g/dL (31-37) Red Cell Distribution Width 13.8 % (11.5-14.5) Platelet Count 242 x10^3/uL (140-400) Neutrophils (%) (Auto) 72 % (31-73) Lymphocytes (%) (Auto) 15 % (24-48) Monocytes (%) (Auto) 10 % (0-9) Eosinophils (%) (Auto) 1 % (0-3) Basophils (%) (Auto) 1 % (0-3) Neutrophils # (Auto) 6.7 x10^3/uL (1.8-7.7) Lymphocytes # (Auto) 1.4 x10^3/uL (1.0-4.8) Monocytes # (Auto) 1.0 x10^3/uL (0.0-1.1) Eosinophils # (Auto) 0.1 x10^3/uL (0.0-0.7) Basophils # (Auto) 0.1 x10^3/uL (0.0-0.2) Sodium Level 138 mmol/L (136-145) Potassium Level 3.6 mmol/L (3.5-5.1) Chloride Level 98 mmol/L (98-107) Carbon Dioxide Level 29 mmol/L (21-32) Anion Gap 11 (6-14) Blood Urea Nitrogen 27 mg/dL (8-26) Creatinine 5.1 mg/dL (0.7-1.3) Estimated GFR (Cockcroft-Gault) 12.0 Glucose Level 186 mg/dL (70-99) Calcium Level 8.8 mg/dL (8.5-10.1) Total Bilirubin 0.2 mg/dL (0.2-1.0) Direct Bilirubin 0.1 mg/dL (0.0-0.2) Aspartate Amino Transf (AST/SGOT) 26 U/L (15-37) Alanine Aminotransferase (ALT/SGPT) 17 U/L (16-63) Alkaline Phosphatase 144 U/L (46-116) Troponin I Quantitative 0.027 ng/mL (0.000-0.055) OY-Zua-B-Type Natriuretic Peptide 16891 pg/mL (0-124) Total Protein 7.2 g/dL (6.4-8.2) Albumin 2.8 g/dL (3.4-5.0) Lipase 166 U/L (73-393) Laboratory Tests Test 08/21/20 15:36 Glucose (Fingerstick) 98 mg/dL (70-99) Review All relevant outside records, renal labs, imaging studies, telemetry/EKG's were reviewed. JEAN PAUL CESPEDES MD Aug 22, 2020 12:50
--- NOTE | 2020-08-22 17:24 | PDOC3 ---
Discharge Summary Date of Admission: Aug 21, 2020 Date of Discharge: Aug 22, 2020 Follow-Up: Other (left ama) Admitting Diagnosis comment: discharge dx left ama 08-22 Assessment/Plan impression recurrent severe hypoglycemia End-stage renal disease on hemodialysis Type 2 diabetes with insulin dependence obesity hyponatremia 08-09 gerd REMOTE CABG hypertension tobacco abuse disorder plan ADMIT d/c current insulin regimen ss insulin protocol CONSULT NEPHROLOGY SQ HEPARIN DVT prophylaxis nutrition consult DIETARY COUNSELING, left ama Justifications for Admission Justifications for Admission Other Justification History of Present Illness History of Present Illness Identification/Chief Complaint Chief Complaint 54-year-old male presented [facility] with hypoglycemia, sugar was in the 40s when he called paramedics who gave him oral glucose and a jelly sandwich , He is now awake and oriented and comes in without any complaints. He had this happened yesterday and was discharged and recently was in the hospital about a week ago. on 08-20 he changed his long-acting insulin and decreased his dose with second episode of hypoglycemia in the last 48 hours , we will admit him to the hospital for monitoring and adjustment of his insulin need Past Medical History Past Medical History Past Medical History Past Medical History: Anxiety, CAD, Cancer, CHF, Diabetes-Type II, High Cholesterol, Heart Disease, Hypertension, DC, Pneumonia, Renal Disease, Renal Failure, Seizure, Other Additional Past Medical Histor: dialysis; chronic back pain Past Surgical History: Cholecystectomy, Coronary Bypass Surgery Additional Past Surgical Histo: HERNIA, peritoneal dialysis cath Smoking Status: Current Every Day Smoker Additional Information: 1 PPD Alcohol Use: None Drug Use: None fhx htn Cardiovascular: CAD, CHF, HTN, Hyperlipidemia, Other Pulmonary: Bronchitis, Pulmonary embolus, Pneumonia, Other CENTRAL NERVOUS SYSTEM: CVA, Periperal neuropathy, Other GI: GERD, Other Heme/Onc: Cancer Psych: Depression Renal/: Chronic renal failure Endocrine: Diabetes, Hyperparathyroidism Past Surgical History Past Surgical History: Cholecystectomy, CABG, Tonsillectomy, Other Family History Family History: High Cholestrol, Hypertension, Kidney Disease Social History Smoke: <1 pack per day ALCOHOL: none Drugs: Other Current Medications Current Medications Vitals Vitals Vital Signs Date Time Temp Pulse Resp B/P (MAP) Pulse Ox O2 Delivery O2 Flow Rate FiO2 08/22/20 08:14 71 168/75 08/22/20 07:30 Room Air 08/22/20 07:00 97.8 18 94 97.8 Physical Exam General: Alert, Oriented X3, Cooperative, No acute distress Heart: Regular rate Lungs: Clear Abdomen: Normal bowel sounds, Soft, No tenderness Extremities: No cyanosis Skin: No rashes, No significant lesion Labs d/c planning 33 min FINAL DIAGNOSIS Problems Medical Problems: (1) Hypoglycemia Status: Acute Brief Hospital Course Mr. Bedolla is a 54 old [sex] who presented with [ ] CONDITION AT DISCHARGE: Comment (left ama) Discharge Medications Current Medications Influenza Virus Vaccine Quadrival (Fluzone Quad [id number] Syringe) 0.5 ml ONCE ONCE VAX IM Last administered on 08/22/20at 09:30; Start 08/21/20 at 16:45; Stop 08/21/20 at 16:46; Status DC Amlodipine Besylate (Norvasc) 10 mg DAILY PO Last administered on 08/22/20at 08:14; Start 08/22/20 at 09:00; Stop 08/22/20 at 16:00; Status DC Aspirin (Aspirin Chewable) 81 mg DAILY PO Last administered on 08/22/20at 08:10; Start 08/22/20 at 09:00; Stop 08/22/20 at 16:00; Status DC Atorvastatin Calcium (Lipitor) 40 mg QHS PO Last administered on 08/21/20at 20:56; Start 08/21/20 at 21:00; Stop 08/22/20 at 16:00; Status DC Carvedilol (Coreg) 25 mg BIDWMEALS PO Last administered on 08/22/20at 08:13; Start 08/21/20 at 21:00; Stop 08/22/20 at 16:00; Status DC Divalproex Sodium (Depakote) 1,000 mg BID PO Last administered on 08/22/20at 08:11; Start 08/21/20 at 21:00; Stop 08/22/20 at 16:00; Status DC Docusate Sodium (Colace) 100 mg DAILY PO Last administered on 08/22/20at 08:11; Start 08/22/20 at 09:00; Stop 08/22/20 at 16:00; Status DC Vitamin B Complex/ Vitamin C (Gissel-Irvin) 1 tab DAILY PO Last administered on 08/22/20at 08:10; Start 08/22/20 at 09:00; Stop 08/22/20 at 16:00; Status DC Gabapentin (Neurontin) 100 mg TID PO Last administered on 08/22/20at 08:10; Start 08/21/20 at 21:00; Stop 08/22/20 at 16:00; Status DC Hydralazine HCl (Apresoline) 50 mg BID PO Last administered on 08/22/20at 08:12; Start 08/21/20 at 21:00; Stop 08/22/20 at 16:00; Status DC Lisinopril (Prinivil) 20 mg DAILY PO Last administered on 08/22/20at 08:12; Start 08/22/20 at 09:00; Stop 08/22/20 at 16:00; Status DC Lubiprostone (Amitiza) 24 mcg DAILY PO Last administered on 08/22/20at 08:10; Start 08/22/20 at 09:00; Stop 08/22/20 at 16:00; Status DC Nitroglycerin (Nitrostat) 0.4 mg PRN Q5MIN PRN SL CHEST PAIN; Start 08/21/20 at 19:00; Stop 08/22/20 at 16:00; Status DC Oxycodone/ Acetaminophen (Percocet 10/325) 1 tab QIDPRN PRN PO PAIN Last administered on 08/22/20at 04:55; Start 08/21/20 at 19:00; Stop 08/22/20 at 16:00; Status DC Ranolazine (Ranexa) 500 mg BID PO Last administered on 08/22/20at 08:13; Start 08/21/20 at 21:00; Stop 08/22/20 at 16:00; Status DC Sevelamer Carbonate (Renvela) 800 mg TIDWMEALS PO Last administered on 08/22/20at 08:10; Start 08/22/20 at 08:00; Stop 08/22/20 at 16:00; Status DC Citalopram Hydrobromide (CeleXA) 40 mg QHS PO Last administered on 08/21/20at 20:55; Start 08/21/20 at 21:00; Stop 08/22/20 at 16:00; Status DC Ondansetron HCl (Zofran Odt) 4 mg PRN Q4HRS PRN PO NAUSEA/VOMITING; Start at 19:15; Stop 08/21/20 at 19:08; Status DC Pantoprazole Sodium (Protonix) 40 mg DAILYAC PO Last administered on 08/22/20at 08:12; Start 08/22/20 at 07:30; Stop 08/22/20 at 16:00; Status DC Diclofenac Sodium (Voltaren) 1 christo BID TP Last administered on 08/21/20at 20:59; Start 08/21/20 at 21:00; Stop 08/22/20 at 16:00; Status DC Ondansetron HCl (Zofran Odt) 4 mg PRN Q4HRS PRN PO NAUSEA/VOMITING; Start 08/21/20 at 19:15; Stop 08/22/20 at 16:00; Status DC Insulin Glargine (Lantus Syringe) 25 unit QHS SQ Last administered on 08/21/20at 21:00; Start 08/21/20 at 21:00; Stop 08/22/20 at 16:00; Status DC Insulin Human Lispro (HumaLOG) 0-5 UNITS TIDWMEALS SQ ; Start 08/22/20 at 08:00; Stop 08/21/20 at 22:22; Status DC Dextrose (Dextrose 50%-Water Syringe) 12.5 gm PRN Q15MIN PRN IV SEE COMMENTS; Start 08/21/20 at 19:30; Stop 08/21/20 at 22:22; Status DC Insulin Human Lispro (HumaLOG) 0-5 UNITS TIDWMEALS SQ ; Start 08/22/20 at 08:00; Stop 08/22/20 at 16:00; Status DC Dextrose (Dextrose 50%-Water Syringe) 12.5 gm PRN Q15MIN PRN IV SEE COMMENTS; Start 08/21/20 at 22:30; Stop 08/22/20 at 16:00; Status DC Heparin Sodium (Porcine) (Heparin Sodium) 5,000 unit Q8HRS SQ Last administered on 08/22/20at 06:10; Start 08/21/20 at 23:00; Stop 08/22/20 at 16:00; Status DC Sodium Chloride (Normal Saline Flush) 3 ml QSHIFT PRN IV AFTER MEDS AND BLOOD DRAWS; Start 08/21/20 at 22:30; Stop 08/22/20 at 16:00; Status DC Acetaminophen (Tylenol) 650 mg PRN Q4HRS PRN PO TEMP OVER 100.4F OR MILD PAIN; Start 08/21/20 at 22:30; Stop 08/22/20 at 16:00; Status DC Clonidine HCl (Catapres) 0.1 mg PRN Q6HRS PRN PO SBP>160 OR DBP>90; Start 08/21/20 at 22:30; Stop 08/22/20 at 16:00; Status DC Docusate Sodium (Colace) 100 mg PRN BID PRN PO HARD STOOLS; Start 08/21/20 at 22:30; Stop 08/22/20 at 16:00; Status DC Albuterol Sulfate (Ventolin Neb Soln) 2.5 mg PRN Q4HRS PRN NEB SHORTNESS OF BREATH; Start 08/21/20 at 22:30; Stop 08/22/20 at 16:00; Status DC Guaifenesin (Robitussin) 200 mg PRN Q4HRS PRN PO COUGH; Start 08/21/20 at 22:30; Stop 08/22/20 at 16:00; Status DC Active Scripts Active Tylenol (Acetaminophen) 325 Mg Tablet 650 Mg PO PRN Q6HRS PRN 14 Days Carvedilol (Carvedilol) 12.5 Mg Tablet 25 Mg PO BIDWMEALS 30 Days Hydralazine Hcl 50 Mg Tablet 50 Mg PO BID 30 Days Atorvastatin Calcium 40 Mg Tablet 40 Mg PO QHS 30 Days Gabapentin (Gabapentin) 100 Mg Capsule 100 Mg PO TID 30 Days [Diclofenac Sodium] 100 GM Gel..gram. 1 Christo TP BID 30 Days Reported Percocet 10-325 Mg Tablet (Oxycodone/Acetaminophen) 1 Each Tablet 1 Tab PO QIDPRN PRN MDD 4 Tablet(s) Tresiba (Insulin Degludec) 100 Unit/1 Ml Vial 42 Unit SQ HS Ranexa (Ranolazine) 500 Mg Tab.er.12h 500 Mg PO BID Renal-Irvin Tablet (Folic Acid/Vit Bcomp,C) 0.8 Mg Tablet 0.8 Mg PO DAILY Novolog (Insulin Aspart) 100 Unit/1 Ml Vial 0 SQ PRN TID PRN Lisinopril 20 Mg Tablet 20 Mg PO DAILY Zofran (Ondansetron Hcl) 4 Mg Tablet 1 Tab PO PRN Q4HRS PRN NITROGLYCERIN SubLingual (Nitroglycerin) 0.4 Mg Tab.subl 0.4 Mg SL PRN Q5MIN PRN Citalopram Hbr (Citalopram Hydrobromide) 40 Mg Tablet 40 Mg PO HS Protonix (Pantoprazole Sodium) 20 Mg Tablet.dr 40 Mg PO DAILY Docusate Sodium 100 Mg Capsule 1 Cap PO DAILY Divalproex Sodium 500 Mg Tablet.dr 2 Tab PO BID Aspirin 81 Mg Tab.chew 1 Tab PO DAILY Amitiza (Lubiprostone) 24 Mcg Capsule 1 Cap PO DAILY Norvasc (Amlodipine Besylate) 10 Mg Tablet 10 Mg PO DAILY Renvela (Sevelamer Carbonate) 800 Mg Tablet 800 Mg PO TIDWMEALS Vital Signs Vital Signs Date Time Temp Pulse Resp B/P (MAP) Pulse Ox O2 Delivery O2 Flow Rate FiO2 08/22/20 11:00 97.8 73 18 146/66 (92) 93 Room Air 97.8 Labs Laboratory Tests Test 08/21/20 09:45 08/21/20 10:05 08/21/20 15:36 Glucose (Fingerstick) 183 mg/dL (70-99) 98 mg/dL (70-99) White Blood Count 9.3 x10^3/uL (4.0-11.0) Red Blood Count 3.62 x10^6/uL (4.30-5.70) Hemoglobin 11.4 g/dL (13.0-17.5) Hematocrit 34.1 % (39.0-53.0) Mean Corpuscular Volume 94 fL (79-100) Mean Corpuscular Hemoglobin 32 pg (25-35) Mean Corpuscular Hemoglobin Concent 33 g/dL (31-37) Red Cell Distribution Width 13.8 % (11.5-14.5) Platelet Count 242 x10^3/uL (140-400) Neutrophils (%) (Auto) 72 % (31-73) Lymphocytes (%) (Auto) 15 % (24-48) Monocytes (%) (Auto) 10 % (0-9) Eosinophils (%) (Auto) 1 % (0-3) Basophils (%) (Auto) 1 % (0-3) Neutrophils # (Auto) 6.7 x10^3/uL (1.8-7.7) Lymphocytes # (Auto) 1.4 x10^3/uL (1.0-4.8) Monocytes # (Auto) 1.0 x10^3/uL (0.0-1.1) Eosinophils # (Auto) 0.1 x10^3/uL (0.0-0.7) Basophils # (Auto) 0.1 x10^3/uL (0.0-0.2) Sodium Level 138 mmol/L (136-145) Potassium Level 3.6 mmol/L (3.5-5.1) Chloride Level 98 mmol/L (98-107) Carbon Dioxide Level 29 mmol/L (21-32) Anion Gap 11 (6-14) Blood Urea Nitrogen 27 mg/dL (8-26) Creatinine 5.1 mg/dL (0.7-1.3) Estimated GFR (Cockcroft-Gault) 12.0 Glucose Level 186 mg/dL (70-99) Calcium Level 8.8 mg/dL (8.5-10.1) Total Bilirubin 0.2 mg/dL (0.2-1.0) Direct Bilirubin 0.1 mg/dL (0.0-0.2) Aspartate Amino Transf (AST/SGOT) 26 U/L (15-37) Alanine Aminotransferase (ALT/SGPT) 17 U/L (16-63) Alkaline Phosphatase 144 U/L (46-116) Troponin I Quantitative 0.027 ng/mL (0.000-0.055) HC-Wib-N-Type Natriuretic Peptide 01427 pg/mL (0-124) Total Protein 7.2 g/dL (6.4-8.2) Albumin 2.8 g/dL (3.4-5.0) Lipase 166 U/L (73-393) Allergies Allergies Coded Allergies Type Severity Reaction Last Updated Verified hydromorphone Allergy Severe Anaphylaxis 06/24/20 Yes Disposition/Orders: Other (left ama) Justicifation of Admission Dx: Justifications for Admission: Justification of Admission Dx: Yes Chronic Renal Failure: Hypertension Altered Mental Status: Altered Mental Status SALOMÓN HADDAD MD Aug 22, 2020 17:24
== END 2020-08-22 12:30 | disposition left against medical advice (07) ==
LOC: ER 09:24 → ED HOLD 11:43 → 4 NORTH 13:26
PROVIDERS: ADMIT Family Medicine; ATTEND Family Medicine
DX: I13.2 Hypertensive heart and chronic kidney disease with heart failure and with stage 5 chronic kidney disease, or end stage renal disease (principal); I50.9 Heart failure, unspecified; N18.6 End stage renal disease; E11.649 Type 2 diabetes mellitus with hypoglycemia without coma; E11.22 Type 2 diabetes mellitus with diabetic chronic kidney disease; I25.10 Atherosclerotic heart disease of native coronary artery without angina pectoris; E66.9 Obesity, unspecified; E87.1 Hypo-osmolality and hyponatremia; K21.9 Gastro-esophageal reflux disease without esophagitis; E78.5 Hyperlipidemia, unspecified; I25.2 Old myocardial infarction; G89.29 Other chronic pain; M54.9 Dorsalgia, unspecified; F17.210 Nicotine dependence, cigarettes, uncomplicated; F41.9 Anxiety disorder, unspecified; J18.9 Pneumonia, unspecified organism; N12 Tubulo-interstitial nephritis, not specified as acute or chronic; E78.00 Pure hypercholesterolemia, unspecified; R56.9 Unspecified convulsions; Z79.4 Long term (current) use of insulin; Z99.2 Dependence on renal dialysis; Z95.1 Presence of aortocoronary bypass graft; Z90.49 Acquired absence of other specified parts of digestive tract; Z79.82 Long term (current) use of aspirin; Z98.890 Other specified postprocedural states; Z86.711 Personal history of pulmonary embolism; Z68.29 Body mass index [BMI] 29.0-29.9, adult; Z23 Encounter for immunization
CPT/HCPCS: 36415; 80048; 80076; 82962; 83690; 83880; 84484; 85025; 90471; 90686; 93005; 96372; 99284; G0378; J1644; J1815; G0008; G0379

== ENCOUNTER 2020-08-29 10:02 | Emergency (ER) | payer MEDICARE, OTHER ==
[~2020-08-29] VITALS: Ht 190.5 cm; Wt 108.1 kg
[2020-08-29 10:46] LABS: BASO # 0.1 x10^3/uL (0.0-0.2); BASO % 1 % (0-3); EOS # 0.3 x10^3/uL (0.0-0.7); EOS % 3 % (0-3); HEMATOCRIT 30.6 % (39.0-53.0); HEMOGLOBIN 10.5 g/dL (13.0-17.5); LYMPH # 3.1 x10^3/uL (1.0-4.8); LYMPH % 30 % (24-48); MEAN CORPUSCULAR HEMOGLOBIN 32 pg (25-35); MEAN CORPUSCULAR HGB CONC 34 g/dL (31-37); MEAN CORPUSCULAR VOLUME 94 fL (79-100); MONO % 10 % (0-9); NEUT # 5.9 x10^3/uL (1.8-7.7); NEUT % 57 % (31-73); PLATELET COUNT 258 x10^3/uL (140-400); RED BLOOD COUNT 3.25 x10^6/uL (4.30-5.70); RED CELL DISTRIBUTION WIDTH 14.2 % (11.5-14.5); WHITE BLOOD COUNT 10.5 x10^3/uL (4.0-11.0)
[2020-08-29 10:49] LABS: CALCIUM 8.8 mg/dL (8.5-10.1); CREATININE 7.2 mg/dL (0.7-1.3); POTASSIUM 5.9 mmol/L (3.5-5.1)
[2020-08-29 10:54] LABS: ALBUMIN 3.1 g/dL (3.4-5.0); ALBUMIN/GLOBULIN RATIO 0.8 (1.0-1.7); TOTAL BILIRUBIN 0.3 mg/dL (0.2-1.0); TOTAL PROTEIN 7.1 g/dL (6.4-8.2)
--- NOTE | 2020-08-29 10:58 | RAD ---
PORTABLE CHEST 1V Clinical Indication: Reason: hypoglycemia / Spl. Instructions: / History: Comparison: AP chest, August 07, 2020. Findings: Stable mild cardiomegaly. CABG changes. Mild elevation of left hemidiaphragm and left basilar atelectasis are unchanged. Lungs are otherwise clear. There is no pneumothorax. No pleural effusion is appreciated. No acute bone abnormality. IMPRESSION: Unchanged left basilar atelectasis. Electronically signed by: Jonathan Pulido MD (08/29/2020 10:55 AM) [id number]
[2020-08-29] MEDS ORDERED: ONDANSETRON PF 4 MG/2 ML VIAL. IVP ONE (11:15)
[2020-08-29] MEDS ORDERED: FAMOTIDINE 20 MG/2 ML VIAL IVP ONE (11:15)
--- NOTE | 2020-08-29 11:18 | PHYS DOC ---
Past Medical History Past Medical History: Anxiety, CAD, Cancer, CHF, Diabetes-Type II, High Cholesterol, Heart Disease, Hypertension, MO, Pneumonia, Renal Disease, Renal Failure, Seizure, Other Additional Past Medical Histor: dialysis; chronic back pain Past Surgical History: Cholecystectomy, Coronary Bypass Surgery Additional Past Surgical Histo: HERNIA, peritoneal dialysis cath Smoking Status: Current Every Day Smoker Additional Information: 1 PPD Alcohol Use: None Drug Use: None General Adult EDM: Chief Complaint: MULTIPLE COMPLAINTS HPI: HPI: 54-year-old male past medical history significant for CAD w/cabg, HFrEF, insul in-dependent diabetes, hypertension, hyperlipidemia, ESRD (MWF, last hd W), and seizure disorder compliant with Depakote, presents to the ED with complaints of " I woke up at 3 AM feeling sick to my stomach with nausea and nonbloody nonbilious vomiting," stating last night he felt like he was getting sick/"coming down with something," with subjective fevers and chills and dry mouth. Also reports chest pain " I have all the time," described as sharp stabbing pain that radiates to his back on his left side, some relief with Percocet prior to arrival. Patient states he was admitted at and saw his facilities administrator who believes his chest pain is musculoskeletal. Was admitted to 2 weeks ago for congestive heart failure. Developed seizures during hemodialysis that required intubation and ICU admission. Last meal was last night. States his Tresiba was decreased from 42 to 25 units every night. Took 10 units of Humalog this morning but has not eaten anything today. Lowest glucose today was 92. Denies any syncope or head injury. On no anticoagulation. Patient requesting pain medication and states "nitro never works." EMR was reviewed and patient was admitted to the hospital 1 week ago for severe hyperglycemia, patient left AGAINST MEDICAL ADVICE. Last cardiac cath was 03/2020 with severe triple vessel disease, 4/4 grafts patent, ef 40-45%. Echo 07/2020 ed 55-60%. pmd-Hernandez Review of Systems: Review of Systems: Constitutional: Denies fever or chills. [] Eyes: Denies change in visual acuity. [] HENT: Denies nasal congestion or sore throat. [] Respiratory: Denies cough or shortness of breath or hemoptysis Cardiovascular: Denies chest pressure/tightness/heaviness or edema or syncope GI: Denies abdominal pain, hematochezia, melena, hematemesis or diarrhea. [] : Denies Tests hematuria Musculoskeletal: Denies back pain or joint pain or CVA tenderness Integument: Denies rash or diaphoresis Neurologic: Denies headache, focal weakness or sensory changes or nuchal rigidity Endocrine: Denies polyuria or polydipsia. [] Lymphatic: Denies swollen glands. [] Psychiatric: Denies depression or anxiety. [] Heart Score: Risk Factors: Risk Factors: DM, Current or recent (<one month) smoker, HTN, HLP, family history of CAD, obesity. Risk Scores: Score 0 - 3: 2.5% MACE over next 6 weeks - Discharge Home Score 4 - 6: 20.3% MACE over next 6 weeks - Admit for Clinical Observation Score 7 - 10: 72.7% MACE over next 6 weeks - Early Invasive Strategies Allergies: Allergies: Allergies Coded Allergies Type Severity Reaction Last Updated Verified hydromorphone Allergy Severe Anaphylaxis 06/24/20 Yes Physical Exam: PE: Constitutional: Well developed, well nourished, non-toxic appearance, very talkative, in no distress, ambulates in room-does not appear to be in "8/" pain HENT: Normocephalic, atraumatic, bilateral external ears normal, oropharynx mo ist, no oral exudates, nose normal. [] Eyes: EOMI, conjunctiva normal, no discharge. [] Neck: Normal range of motion, no tenderness, supple, no stridor. [] Cardiovascular:Heart rate regular rhythm, no murmur [] Lungs & Thorax: Bilateral breath sounds clear to auscultation [] Abdomen: Bowel sounds normal, soft, no tenderness, no masses, no pulsatile masses. [] Skin: Warm, dry, no erythema, no rash. [] Back: No tenderness, no CVA tenderness. [] Extremities: No tenderness, no cyanosis, no clubbing, ROM intact, no edema, left upper extremity thrill Neurologic: Alert and oriented X 3, normal motor function, normal sensory function, no focal deficits noted. [] Psychologic: Affect normal, judgement normal, mood normal. [] Current Patient Data: Labs: Laboratory Tests Test 08/29/20 10:09 08/29/20 10:19 Glucose (Fingerstick) 82 mg/dL (70-99) Sodium Level 137 mmol/L (136-145) Potassium Level 5.9 mmol/L (3.5-5.1) H Chloride Level 100 mmol/L (98-107) Carbon Dioxide Level 25 mmol/L (21-32) Anion Gap 12 (6-14) Blood Urea Nitrogen 66 mg/dL (8-26) H Creatinine 7.2 mg/dL (0.7-1.3) H Estimated GFR (Cockcroft-Gault) 8.0 BUN/Creatinine Ratio 9 (6-20) Glucose Level 81 mg/dL (70-99) Calcium Level 8.8 mg/dL (8.5-10.1) Total Bilirubin 0.3 mg/dL (0.2-1.0) Aspartate Amino Transferase (AST) 13 U/L (15-37) L Alanine Aminotransferase (ALT) 18 U/L (16-63) Alkaline Phosphatase 159 U/L (46-116) H Troponin I Quantitative 0.031 ng/mL (0.000-0.055) Total Protein 7.1 g/dL (6.4-8.2) Albumin 3.1 g/dL (3.4-5.0) L Albumin/Globulin Ratio 0.8 (1.0-1.7) L Lipase 276 U/L (73-393) Ethyl Alcohol Level < 10 mg/dL (0-10) Laboratory Tests 08/29/20 10:19 Vital Signs: Vital Signs Date Time Temp Pulse Resp B/P (MAP) Pulse Ox O2 Delivery O2 Flow Rate FiO2 08/29/20 10:06 99.0 86 22 142/76 (98) 96 Room Air 99.0 EKG: EKG: sinus rhythm 84 bpm, NAD, TWI 1 and aVL, no CECILE/STD, no change in comparison to prior EKG from March 2020 Radiology/Procedures: Radiology/Procedures: IMAGING REPORT Signed PATIENT: JULIAN GARCÍA ACCOUNT: [id number] : 1965 LOCATION: ER AGE: 54 SEX: M EXAM STATUS: REG ER ORD. PHYSICIAN: THOMAS CHAVEZ DO REASON: hypoglycemia PROCEDURE: PORTABLE CHEST 1V PORTABLE CHEST 1V Clinical Indication: Reason: hypoglycemia / Spl. Instructions: / History: Comparison: AP chest, August 07, 2020. Findings: Stable mild cardiomegaly. CABG changes. Mild elevation of left hemidiaphragm and left basilar atelectasis are unchanged. Lungs are otherwise clear. There is no pneumothorax. No pleural effusion is appreciated. No acute bone abnormality. IMPRESSION: Unchanged left basilar atelectasis. Electronically signed by: Jonathan Pulido MD (08/29/2020 10:55 AM) [id number] DICTATED and SIGNED BY: JONATHAN PULIDO MD DATE: 08/29/20 1055 Course & Med Decision Making: Course & Med Decision Making Pertinent Labs and Imaging studies reviewed. (See chart for details) Concern for atypical chest pain, 2 troponins negative. Patient very well- appearing, ambulating with steady gait. Labs show no leukocytosis. Patient is afebrile. Patient has uncontrolled hypertension but no end organ damage (confusion, pulm edema, elevated trop). Needs dialysis today, potassium of 5.9. Is requesting to be discharged-states his is on his way to pick him up so he can go to dialysis. Reports he has "plenty" of Percocet at home which relieves the pain. No relief with aspirin or nitro. Depakote not in therapeutic range. Patient was made aware of his depakote level, and that we did not evaluate for pulmonary embolus or aortic dissection-still requested to be discharged. States his chest pain has resolved. Strict ED return precautions given for syncope/near syncope, severe chest pain, dyspnea, back pain or neurologic deficits. Encouraged urgent outpatient follow-up with PMD and cardiology. Life-threatening processes were considered but are low suspicion at this time, given history and physical exam. Pt was educated on all prescription medications and adverse effects. All patient's questions were answered and pt was stable at time of discharge. Life/limb-threatening differential includes but is not limited to, acute myocardial infarction, aortic dissection, congestive heart failure, esophageal injury including rupture, surgical abdomen, arrhythmia, cardiomyopathy, myocarditis, pericarditis, peptic ulcer disease, pneumomediastinum, pneumonia, pneumothorax, pulmonary embolus, unstable angina, rib fracture, contusion, pericardial tamponade or effusion, pulmonary contusion I spoken with the patient and her caregivers. I explained the patient's condition, diagnoses and treatment plan based on the information available to me at this time. I have answered the patient and her caregiver's questions and addressed any concerns. The patient and her caregivers have a good understanding of patient's diagnosis, condition and treatment plan as can be expected at this point. Vital signs have been stable. Patient's condition is stable and appropriate for discharge from the emergency department. Patient will pursue further outpatient evaluation with primary care physician or other designated or consulting physician as outlined in the discharge instructions. The patient and/or caregivers are agreeable to this plan of care and follow-up instructions have been explained in detail. The patient and/or caregivers have received these instructions in written form and have expressed an understanding of the discharge instructions. The patient and/or caregivers are aware that any significant change of condition or worsening of symptoms should prompt immediate return to this or the closest emergency department or call to 499. Neelima Disclaimer: Neelima Disclaimer: This electronic medical record was generated, in whole or in part, using a voice recognition dictation system. Departure Departure Impression: Primary Impression: Atypical chest pain Disposition: 01 DC HOME SELF CARE/HOMELESS Condition: STABLE Referrals: KHRIS LOPEZ MD (PCP) followup with your pmd or cards within the next week Patient Instructions: Chest Pain (Nonspecific), Chest Wall Pain Additional Instructions: FOLLOW UP WITH CARDIOLOGY: [facility] Address: [address] [place] [address] EMERGENCY DEPARTMENT GENERAL DISCHARGE INSTRUCTIONS Thank you for coming to [facility] Emergency Department (ED) today and trusting us with you care. We trust that you had a positive experience in our Emergency Department. If you wish to speak to the department management, you may call the Director at [phone]. YOUR FOLLOW UP INSTRUCTIONS ARE FOLLOWS: 1. Do you have a private Doctor? If you do not have a private doctor, please ask for a resource list of physicians or clinics that may be able to assist you with follow up care. 2. The Emergency Physicain has interpreted your x-rays. The X-Ray specialist will also review them. If there is a change in the findings, you will be notified in 48 hours when at all possible. 3. A lab test or culture has been done, your results will be reviewed and you will be notified if you need a change in treatment. ADDITIONAL INSTRUCTIONS AND INFORMATION: 1. Your care today has been supervised by a physician who is specially trained in emergency care. Many problems require more than one evaluation for a complete diagnosis and treatment. We recommend that you schedule your follow up appointment as recommended to ensure complete treatment of you illness or injury. If you are unable to obtain follow up care and continue to have a problem, or if your condition worsens, we recommend that you return to the ED. 2. We are not able to safely determine your condition over the phone nor are we able to give sound medical advice over the phone. For these safety reasons, if you call for medical advice we will ask you to come to the ED for further evaluation. 3. If you have any questions regarding these discharge instructions please call the ED at [phone]. SAFETY INFORMATION: In the interest of safety, wellness, and injury prevention; we encourage you to wear your sealbelt, if you smoke; quite smoking, and we encourage family to use a protective helmet for bicycling and other sporting events that present an increased risk for head injury. IF YOUR SYMPTOMS WORSEN OR NEW SYMPTOMS DEVELOP, OR YOU HAVE CONCERNS ABOUT YOUR CONDITION; OR IF YOUR CONDITION WORSENS WHILE YOU ARE WAITING FOR YOUR FOLLOW UP APPOINTMENT; EITHER CONTACT YOUR PRIMARY CARE DOCTOR, THE PHYSICIAN WHOSE NAME AND NUMBER YOU WERE GIVEN, OR RETURN TO THE ED IMMEDIATELY. THOMAS CHAVEZ DO Aug 29, 2020 11:18
[2020-08-29] MEDS: NITROGLYCERIN SUBLINGUAL 0.4 MG BOTTLE OF 25. SL PRN ×2 (11:27→11:33)
[2020-08-29 11:35] LABS: VAL ACID 46 mcg/mL (50-100)
[2020-08-29 11:45] LABS: INFLUENZA A PATIENT NEGATIVE (NEGATIVE); INFLUENZA B PATIENT NEGATIVE (NEGATIVE)
--- NOTE | 2020-08-29 12:43 | EKG ---
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
[2020-08-29] MEDS ORDERED: ACETAMINOPHEN 325 MG TABLET. PO ONE (12:45)
[2020-08-29 12:54] LABS: BILIRUBIN,URINE NEGATIVE (NEG); CLARITY,URINE CLEAR; COLOR,URINE YELLOW; NITRITE,URINE NEGATIVE (NEG); PROTEIN,URINE >=300 mg/dL (NEG-TRACE); UROBILINOGEN,URINE 0.2 mg/dL (0.2 mg/dL)
[2020-08-29 12:59] LABS: BARBITURATES NEG (NEG); BENZODIAZEPINES NEG (NEG); CANNABINOIDS NEG (NEG); COCAINE NEG (NEG); METHADONE NEG (NEG); OPIATES NEG (NEG); PHENCYCLIDINE NEG (NEG)
[2020-08-29 13:02] LABS: AMPHETAMINE/METHAMPHETAMINE NEG (NEG)
[2020-08-29 13:15] LABS: BACTERIA,URINE 0 /HPF (0-FEW); WBC,URINE OCC /HPF (0-4)
[2020-08-29 15:06] VITALS: BP 170/76
[2020-08-29] MEDS ORDERED: IOHEXOL 350 MG/ML 100 ML VIAL. ONE (21:01)
[2020-08-29] MEDS ORDERED: AZIT250T PO (21:31)
== END 2020-08-29 16:00 | disposition home or self-care (01) ==
LOC: ER 10:02
DX: R07.89 Other chest pain (principal); Z20.828 Contact with and (suspected) exposure to other viral communicable diseases; R11.2 Nausea with vomiting, unspecified; R50.9 Fever, unspecified; R68.2 Dry mouth, unspecified; F41.9 Anxiety disorder, unspecified; I11.0 Hypertensive heart disease with heart failure; I50.9 Heart failure, unspecified; E11.9 Type 2 diabetes mellitus without complications; I25.2 Old myocardial infarction; N18.9 Chronic kidney disease, unspecified; E78.00 Pure hypercholesterolemia, unspecified; F17.200 Nicotine dependence, unspecified, uncomplicated; Z90.49 Acquired absence of other specified parts of digestive tract; Z98.890 Other specified postprocedural states; Z88.5 Allergy status to narcotic agent
CPT/HCPCS: 36415; 71045; 80053; 80164; 80307; 81001; 82962; 83690; 83735; 83880; 84484; 85025; 87804; 93005; 96374; 96375; 99285; C9803; G0480; J2405; J3490; U0003

== ENCOUNTER 2020-08-29 18:16 | Emergency (ER) | payer MEDICARE, OTHER ==
[~2020-08-29] VITALS: Ht 190.5 cm; Wt 108.0 kg
--- NOTE | 2020-08-29 18:52 | ED.ADGEN ---
Past Medical History Past Medical History: CHF, Renal Disease Additional Past Medical Histor: dialysis; chronic back pain Past Surgical History: No Surgical History Additional Past Surgical Histo: HERNIA, peritoneal dialysis cath Smoking Status: Current Every Day Smoker Alcohol Use: None Drug Use: None General Adult EDM: Chief Complaint: CHEST PAIN HPI: HPI: Patient is a 54 year old male who presents for chest pain. Patient was seen in the emergency department and discharged earlier after negative cardiac work-up. Patient states the pain started around 3 AM and is a sharp pain that radiates to the back. Has multiple other symptoms such as subjective fever, diaphoresis, nausea. Patient cannot identify any factors that make the pain better or worse. Patient left earlier went to dialysis and had 2 L taken off before returning. Review of Systems: Review of Systems: Constitutional: Denies fever or chills. [] Subjective fever Eyes: Denies change in visual acuity. [] HENT: Denies nasal congestion or sore throat. [] Respiratory: Denies cough or shortness of breath. [] Cardiovascular: Substernal chest pain, denies lower extremity edema GI: Denies abdominal pain, nausea, vomiting, bloody stools or diarrhea. [] Abdominal distention : Denies dysuria. [] Musculoskeletal: Denies back pain or joint pain. [] Integument: Denies rash. [] Neurologic: Denies headache, focal weakness or sensory changes. [] Endocrine: Denies polyuria or polydipsia. [] Lymphatic: Denies swollen glands. [] Psychiatric: Denies depression or anxiety. [] Current Medications: Current Medications Medications (Trade) Dose Ordered Sig/Brittani Start Time Stop Time Status Last Admin Dose Admin Azithromycin (Zithromax) 500 mg 1X ONCE 08/29/20 21:15 08/29/20 21:16 DC 08/29/20 21:22 500 MG Info (CONTRAST GIVEN -- Rx MONITORING) 1 each PRN DAILY PRN 08/29/20 20:30 08/31/20 20:29 Iohexol (Omnipaque 350 Mg/ml) 75 ml 1X ONCE 08/29/20 20:15 08/29/20 20:20 DC 08/29/20 20:25 75 ML Multi-Ingredient Mouthwash/Gargle (Gi Cocktail) 20 ml 1X ONCE 08/29/20 20:15 10/30/20 20:16 DC 08/29/20 20:17 20 ML Allergies: Allergies: Allergies Coded Allergies Type Severity Reaction Last Updated Verified hydromorphone Allergy Severe Anaphylaxis 06/24/20 Yes Physical Exam: PE: Constitutional: Well developed, well nourished, no acute distress, non-toxic appearance. [] HENT: Normocephalic, atraumatic, bilateral external ears normal, oropharynx moist, no oral exudates, nose normal. [] Eyes: PERRLA, EOMI, conjunctiva normal, no discharge. [] Neck: Normal range of motion, no tenderness, supple, no stridor. [] Cardiovascular:Heart rate regular rhythm, no murmur [] Lungs & Thorax: Bilateral breath sounds clear to auscultation [] Abdomen: Epigastric tenderness, no rebound or guarding. Negative Parrish's Skin: Warm, dry, no erythema, no rash. [] Back: No tenderness, no CVA tenderness. [] Extremities: No tenderness, no cyanosis, no clubbing, ROM intact, no edema. [] Neurologic: Alert and oriented X 3, normal motor function, normal sensory function, no focal deficits noted. [] Psychologic: Affect normal, judgement normal, mood normal. [] Current Patient Data: Labs: Laboratory Tests Test 08/29/20 19:20 White Blood Count 7.4 x10^3/uL (4.0-11.0) Red Blood Count 3.49 x10^6/uL (4.30-5.70) L Hemoglobin 11.0 g/dL (13.0-17.5) L Hematocrit 33.2 % (39.0-53.0) L Mean Corpuscular Volume 95 fL (79-100) Mean Corpuscular Hemoglobin 31 pg (25-35) Mean Corpuscular Hemoglobin Concent 33 g/dL (31-37) Red Cell Distribution Width 14.4 % (11.5-14.5) Platelet Count 246 x10^3/uL (140-400) Neutrophils (%) (Auto) 65 % (31-73) Lymphocytes (%) (Auto) 22 % (24-48) L Monocytes (%) (Auto) 9 % (0-9) Eosinophils (%) (Auto) 3 % (0-3) Basophils (%) (Auto) 1 % (0-3) Neutrophils # (Auto) 4.8 x10^3/uL (1.8-7.7) Lymphocytes # (Auto) 1.6 x10^3/uL (1.0-4.8) Monocytes # (Auto) 0.7 x10^3/uL (0.0-1.1) Eosinophils # (Auto) 0.2 x10^3/uL (0.0-0.7) Basophils # (Auto) 0.1 x10^3/uL (0.0-0.2) Sodium Level 134 mmol/L (136-145) L Potassium Level 5.6 mmol/L (3.5-5.1) H Chloride Level 98 mmol/L (98-107) Carbon Dioxide Level 26 mmol/L (21-32) Anion Gap 10 (6-14) Blood Urea Nitrogen 53 mg/dL (8-26) H Creatinine 5.4 mg/dL (0.7-1.3) H Estimated GFR (Cockcroft-Gault) 11.2 BUN/Creatinine Ratio 10 (6-20) Glucose Level 355 mg/dL (70-99) H Calcium Level 8.4 mg/dL (8.5-10.1) L Total Bilirubin 0.3 mg/dL (0.2-1.0) Aspartate Amino Transferase (AST) 19 U/L (15-37) Alanine Aminotransferase (ALT) 20 U/L (16-63) Alkaline Phosphatase 167 U/L (46-116) H Troponin I Quantitative 0.029 ng/mL (0.000-0.055) Total Protein 7.4 g/dL (6.4-8.2) Albumin 3.3 g/dL (3.4-5.0) L Albumin/Globulin Ratio 0.8 (1.0-1.7) L Lipase 252 U/L (73-393) Laboratory Tests 08/29/20 19:20 Laboratory Tests 08/29/20 19:20 Vital Signs: Vital Signs Date Time Temp Pulse Resp B/P (MAP) Pulse Ox O2 Delivery O2 Flow Rate FiO2 08/29/20 21:22 74 18 170/74 (106) 96 Room Air 08/29/20 18:35 98.3 98.3 EKG: EKG: []sinus rhythm, heart rate 75 bpm, leftward axis deviation, to inversion aVL, no ST elevation or depression, no ectopy, normal intervals Heart Score: Risk Factors: Risk Factors: DM, Current or recent (<one month) smoker, HTN, HLP, family history of CAD, obesity. Risk Scores: Score 0 - 3: 2.5% MACE over next 6 weeks - Discharge Home Score 4 - 6: 20.3% MACE over next 6 weeks - Admit for Clinical Observation Score 7 - 10: 72.7% MACE over next 6 weeks - Early Invasive Strategies Radiology/Procedures: Radiology/Procedures: PROCEDURE: CT ANGIOGRAPHY CHEST Exam: CT of chest with contrast INDICATION: Substernal pain TECHNIQUE: Sequential axial images through the chest obtained following the administration of 75 mL of Omni 350 IV contrast. Sagittal and coronal reformatted images were reconstructed from the axial data and reviewed. 3-D reformatted images were reconstructed from the axial data and reviewed. Comparisons: None FINDINGS: Visualized portions of the thyroid are unremarkable. No enlarged mediastinal lymph nodes are identified. Heart size is normal. No pericardial effusion. Mild coronary artery calcifications. Thoracic aorta has a normal course and caliber. Pulmonary artery is not enlarged. No pulmonary embolus identified within the main, lobar or proximal segmental pulmonary arteries. Evaluation distally secondary to contrast bolus timing. Airways are patent. Mild bronchial wall thickening. Strandy opacities at the left lung base. No consolidation or pneumothorax. No suspicious lung nodules. No pleural effusion or thickening. Visualized upper abdomen is unremarkable. No suspicious osseous lesions or acute fractures. IMPRESSION: 1. No pulmonary embolus identified within the main, lobar or proximal segmental pulmonary arteries. Limitations as described above. 2. Bronchial wall thickening may relate to bronchitis. 3. Moderate coronary artery calcifications. [] Course & Med Decision Making: Course & Med Decision Making Pertinent Labs and Imaging studies reviewed. (See chart for details) Work-up again unremarkable. CT consistent with bronchitis [] Dragon Disclaimer: Dragon Disclaimer: This electronic medical record was generated, in whole or in part, using a voice recognition dictation system. Departure Departure Impression: Primary Impression: Chest pain Additional Impression: Bronchitis Disposition: 01 DC HOME SELF CARE/HOMELESS Condition: STABLE Referrals: KHRIS LOPEZ MD (PCP) Patient Instructions: Bronchitis Scripts Azithromycin (ZITHROMAX) 250 Mg Tablet 250 MG PO as directed for ANTI-BIOTIC for 4 Days, #4 TAB 0 Refills Take 2 PO x 1 days Then take 1 PO q 24 hour for the next 4 days Prov: JOSI RAMON MD 08/29/20 Problem Qualifiers JOSI RAMON MD Aug 29, 2020 18:52
[2020-08-29 19:32] LABS: BASO # 0.1 x10^3/uL (0.0-0.2); BASO % 1 % (0-3); EOS # 0.2 x10^3/uL (0.0-0.7); EOS % 3 % (0-3); HEMATOCRIT 33.2 % (39.0-53.0); LYMPH # 1.6 x10^3/uL (1.0-4.8); LYMPH % 22 % (24-48); MEAN CORPUSCULAR HEMOGLOBIN 31 pg (25-35); MEAN CORPUSCULAR HGB CONC 33 g/dL (31-37); MEAN CORPUSCULAR VOLUME 95 fL (79-100); MONO # 0.7 x10^3/uL (0.0-1.1); MONO % 9 % (0-9); NEUT # 4.8 x10^3/uL (1.8-7.7); NEUT % 65 % (31-73); PLATELET COUNT 246 x10^3/uL (140-400); RED BLOOD COUNT 3.49 x10^6/uL (4.30-5.70); RED CELL DISTRIBUTION WIDTH 14.4 % (11.5-14.5); WHITE BLOOD COUNT 7.4 x10^3/uL (4.0-11.0)
[2020-08-29 19:41] LABS: CALCIUM 8.4 mg/dL (8.5-10.1); CREATININE 5.4 mg/dL (0.7-1.3); GFR 11.2; POTASSIUM 5.6 mmol/L (3.5-5.1)
[2020-08-29 19:47] LABS: ALBUMIN 3.3 g/dL (3.4-5.0); ALBUMIN/GLOBULIN RATIO 0.8 (1.0-1.7); TOTAL BILIRUBIN 0.3 mg/dL (0.2-1.0); TOTAL PROTEIN 7.4 g/dL (6.4-8.2)
[2020-08-29] MEDS ORDERED: IOHEXOL 350 MG/ML 100 ML VIAL. IV ONE (20:15)
[2020-08-29] MEDS ORDERED: LIDO:MAALOX 1:1 20 ML SINGLE DOSE. SWSW ONE (20:15)
[2020-08-29] MEDS ORDERED: CONTRAST GIVEN. MC PRN (20:30)
--- NOTE | 2020-08-29 20:58 | RAD ---
Exam: CT of chest with contrast INDICATION: Substernal pain TECHNIQUE: Sequential axial images through the chest obtained following the administration of 75 mL of Omni 350 IV contrast. Sagittal and coronal reformatted images were reconstructed from the axial data and reviewed. 3-D reformatted images were reconstructed from the axial data and reviewed. Comparisons: None FINDINGS: Visualized portions of the thyroid are unremarkable. No enlarged mediastinal lymph nodes are identified. Heart size is normal. No pericardial effusion. Mild coronary artery calcifications. Thoracic aorta has a normal course and caliber. Pulmonary artery is not enlarged. No pulmonary embolus identified within the main, lobar or proximal segmental pulmonary arteries. Evaluation distally secondary to contrast bolus timing. Airways are patent. Mild bronchial wall thickening. Strandy opacities at the left lung base. No consolidation or pneumothorax. No suspicious lung nodules. No pleural effusion or thickening. Visualized upper abdomen is unremarkable. No suspicious osseous lesions or acute fractures. IMPRESSION: 1. No pulmonary embolus identified within the main, lobar or proximal segmental pulmonary arteries. Limitations as described above. 2. Bronchial wall thickening may relate to bronchitis. 3. Moderate coronary artery calcifications. Exposure: One or more of the following in the visualized dose reduction techniques were utilized for this examination: 1. Automated exposure control 2. Adjustment of the MA and/or KV according to patient size 3. Use of iterative of reconstructive technique Electronically signed by: Bautista Montes MD (08/29/2020 8:55 PM) [facility]
[2020-08-29] MEDS ORDERED: AZITHROMYCIN 250 MG TABLET. PO ONE (21:15)
[2020-08-29 21:28] VITALS: BP 166/88
[2020-08-29] MEDS ORDERED: AZIT250T PO (21:31)
--- NOTE | 2020-08-30 05:06 | EKG ---
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
--- NOTE | 2020-09-03 09:45 | EKG ---
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
== END 2020-08-29 21:48 | disposition home or self-care (01) ==
LOC: ER 18:16
DX: R07.89 Other chest pain (principal); J40 Bronchitis, not specified as acute or chronic; R50.9 Fever, unspecified; R11.0 Nausea; R10.13 Epigastric pain; I50.9 Heart failure, unspecified; G89.29 Other chronic pain; F17.200 Nicotine dependence, unspecified, uncomplicated; Z98.890 Other specified postprocedural states; Z88.5 Allergy status to narcotic agent
CPT/HCPCS: 36415; 71045; 71275; 80053; 80164; 80307; 81001; 82962; 83690; 83735; 83880; 84484; 85025; 87804; 93005; 96374; 96375; 99285; C9803; G0480; J2405; J3490; Q9967; U0003

== ENCOUNTER 2020-09-02 17:20 | Emergency (ER) | payer MEDICARE, OTHER ==
[~2020-09-02] VITALS: Ht 190.5 cm; Wt 108.0 kg
[~2020-09-02 17:20] MED LIST changes: +AZIT250T PO
[2020-09-02 18:30] VITALS: BP 136/72
[2020-09-02] MEDS ORDERED: oxyCODONE/APAP 5/325 1 TAB TABLET PO ONE (18:30)
[2020-09-02] MEDS ORDERED: DIPH,PERTUSS(ACELL),TET VAC/PF 0.5 ML SYRINGE. VAX IM ONE (18:45)
--- NOTE | 2020-09-02 18:49 | PHYS DOC ---
Past Medical History Past Medical History: CHF, Diabetes-Type II, High Cholesterol, Hypertension, OK, Renal Disease Additional Past Medical Histor: chronic back pain Past Surgical History: Other Additional Past Surgical Histo: HERNIA, peritoneal dialysis cath, 5-WAY CARDIAC BYPASS Smoking Status: Current Every Day Smoker Additional Information: 1/2 PK/DAY Alcohol Use: None Drug Use: None General Adult EDM: Chief Complaint: MECHANICAL FALL HPI: HPI: Patient is a 54 year old male who presents with states he was walking his dog as he got a new harness for the dog. He states the dog pulled and he fell onto the ground. Patient has to walk with a walker. Patient states he hit his head but did not lose consciousness. He has a abrasion to his right knee with right knee pain, right ankle pain, tib fib pain on the right. Patient has right hand pain when the leash got caught between the fourth and fifth right finger causing 2+ swelling of the fourth and fifth fingers and bruising to the fifth finger. Patient denies pain, headache, dizziness, vision changes, numbness or tingling, syncope, back pain, neck pain, nausea, vomiting abdominal pain, shortness of breath, chest pain. Patient rates his overall pain a 9 out of 10. Patient states he takes Percocet at home for pain but did not take any before coming. Patient has a history of renal disease, OK, CHF, diabetes, high cholesterol, hypertension, dialysis, smoker. He states he is not on blood thinners. Review of Systems: Review of Systems: Constitutional: Denies fever or chills. [] Eyes: Denies change in visual acuity. [] HENT: Denies nasal congestion or sore throat. [] Respiratory: Denies cough or shortness of breath. [] Cardiovascular: Denies chest pain or edema. [] GI: Denies abdominal pain, nausea, vomiting, bloody stools or diarrhea. [] : Denies dysuria. [] Musculoskeletal: Denies back pain. + Right fourth and fifth finger,+ right knee,+ right ankle,+ right tib-fib joint pain. [] Integument: Denies rash. +Superficial abrasion to the right knee. [] Neurologic: Denies headache, focal weakness or sensory changes. +Hit his head on the ground with fall [] Endocrine: Denies polyuria or polydipsia. [] Lymphatic: Denies swollen glands. [] Psychiatric: Denies depression or anxiety. [] Heart Score: Risk Factors: Risk Factors: DM, Current or recent (<one month) smoker, HTN, HLP, family history of CAD, obesity. Risk Scores: Score 0 - 3: 2.5% MACE over next 6 weeks - Discharge Home Score 4 - 6: 20.3% MACE over next 6 weeks - Admit for Clinical Observation Score 7 - 10: 72.7% MACE over next 6 weeks - Early Invasive Strategies Current Medications: Current Medications Medications (Trade) Dose Ordered Sig/Brittani Start Time Stop Time Status Last Admin Dose Admin Oxycodone/ Acetaminophen (Percocet 5/325) 1 tab 1X ONCE 09/02/20 18:30 09/02/20 18:31 DC Allergies: Allergies: Allergies Coded Allergies Type Severity Reaction Last Updated Verified hydromorphone Allergy Severe Anaphylaxis 06/24/20 Yes Physical Exam: PE: Constitutional: Well developed, well nourished, no acute distress, non-toxic appearance. [] HENT: Normocephalic, atraumatic, bilateral external ears normal, oropharynx moist, no oral exudates, nose normal. [] Eyes: PERRLA, EOMI, conjunctiva normal, no discharge. [] Neck: Normal range of motion, no tenderness, supple, no stridor. [] Cardiovascular:Heart rate regular rhythm, no murmur [] Lungs & Thorax: Bilateral breath sounds clear to auscultation [] Abdomen: Bowel sounds normal, soft, no tenderness, no masses, no pulsatile masses. [] Skin: Warm, dry, no erythema, no rash. Small superficial abrasion to the right knee. [] Back: No tenderness, no CVA tenderness. [] Extremities: No tenderness, no cyanosis, no clubbing, ROM intact, no edema. [] Neurologic: Alert and oriented X 3, normal motor function, normal sensory function, no focal deficits noted. [] Psychologic: Affect normal, judgement normal, mood normal. [] Current Patient Data: Vital Signs: Vital Signs Date Time Temp Pulse Resp B/P (MAP) Pulse Ox O2 Delivery O2 Flow Rate FiO2 09/02/20 18:30 99.4 87 18 136/72 (93) 96 Room Air 99.4 EKG: EKG: [] Radiology/Procedures: Radiology/Procedures: [] Impression: [facility] [address] [place] [address] IMAGING REPORT Signed PATIENT: JULIAN GARCÍA ACCOUNT: [id number] : 1965 LOCATION: ER AGE: 54 SEX: M EXAM STATUS: REG ER ORD. PHYSICIAN: JERSON WILLIAMSON APRN REASON: FALL, HIT HEAD PROCEDURE: CT HEAD AND CERVICAL SPINE WO Examination: CT head and cervical spine without contrast CT HEAD INDICATION: Reason: FALL, HIT HEAD / Spl. Instructions: / History: COMPARISON: None Available. Exposure: One or more of the following individualized dose reduction techniques were utilized for this examination: 1. Automated exposure control 2. Adjustment of the mA and/or kV according to patient size 3. Use of iterative reconstruction technique TECHNIQUE: 5 mm contiguous axial images were obtained from the skull base to the vertex in both bone and soft tissue algorithm. FINDINGS: No abnormal attenuation within the brain parenchyma. No evidence of acute intracranial hemorrhage. No extra-axial fluid collections. No mass effect or midline shift. Ventricular size is appropriate. Basal cisterns are patent. No fractures identified.Gibson-white differentiation is preserved.Globes and orbits are within normal limits. Small mucous opacities in cyst or polyp partially visualized in the right maxillary sinus. IMPRESSION: No acute intracranial findings. CT CERVICAL SPINE INDICATION: Reason: FALL, HIT HEAD / Spl. Instructions: / History: COMPARISON: None Available. Technique: 2.5 mm contiguous axial images were obtained from the skull base through the cervicothoracic junction in both bone and soft tissue algorithm. Additional sagittal and coronal reconstructions were also performed. FINDINGS: Vertebral body height and alignment are maintained. Cervical lordosis is preserved. The lateral masses of C1 are aligned upon C2. No fractures identified. The bony canal is patent throughout. Mild intervertebral disc height loss identified in the cervical spine likely degenerative changes The paraspinous soft tissues are unremarkable. Visualized intracranial contents are unremarkable. Lung apices are clear. IMPRESSION: 1. No acute fracture cervical spine. Correlate clinically. 2. Mild degenerative changes cervical spine. Electronically signed by: Axel Hunter MD (09/02/2020 7:23 PM) [id number] DICTATED and SIGNED BY: AXEL HUNTER MD DATE: 09/02/201922 [facility] [address] [place] [address] IMAGING REPORT Signed PATIENT: JULIAN GARCÍA ACCOUNT: [id number] : 1965 LOCATION: ER AGE: 54 SEX: M EXAM STATUS: REG ER ORD. PHYSICIAN: JERSON WILLIAMSON APRN REASON: FALL PROCEDURE: HIP RIGHT 2V WITH PELVIS PROCEDURE: HIP RIGHT 2V WITH PELVIS, TIBIA FIBULA RIGHT, KNEE RIGHT 4V, ANKLE RIGHT 3V, HAND RIGHT 3V CLINICAL INDICATION / HISTORY: Reason: FALL / Spl. Instructions: / History: . TECHNIQUE: PA, lateral and oblique views of the right hand. COMPARISON: None FINDINGS: There is a lucency through the base of the proximal fifth phalanx that is suspicious for nondisplaced acute fracture. Otherwise no fracture or dislocation is identified. The bone density is normal. The joint spaces are maintained, and there are no erosions to suggest an inflammatory arthropathy. The soft tissues are unremarkable. IMPRESSION: Possible acute nondisplaced fracture of the base of the fifth proximal phalanx, extra-articular. Otherwise no acute findings PROCEDURE: HIP RIGHT 2V WITH PELVIS, TIBIA FIBULA RIGHT, KNEE RIGHT 4V, ANKLE RIGHT 3V, HAND RIGHT 3V CLINICAL INDICATION / HISTORY: Reason: FALL / Spl. Instructions: / History: . TECHNIQUE: PA, lateral and oblique views of the right hand. COMPARISON: None FINDINGS: There is lucency across the base of the fifth proximal phalanx of uncertain clinical significance. A nondisplaced acute fracture is possible. The rest of the bones of the right hand are unremarkable. The soft tissues are unremarkable. IMPRESSION: Possible nondisplaced fracture through the base of the fifth proximal phalanx. PROCEDURE: HIP RIGHT 2V WITH PELVIS, TIBIA FIBULA RIGHT, KNEE RIGHT 4V, ANKLE RIGHT 3V, HAND RIGHT 3V CLINICAL INDICATION / HISTORY: Reason: FALL / Spl. Instructions: / History: . TECHNIQUE: AP, lateral, and sunrise views of the right knee. COMPARISON: None FINDINGS: The osseous structures are intact. An intramedullary jerry and interlocking nail is present in the tibia. The articular surfaces are smooth. The joint space is maintained. No intra-articular loose bodies. The alignment is within normal limits. The soft tissues are notable for arterial calcifications.. No obvious joint effusion. No radio-opaque foreign bodies are identified. IMPRESSION: No acute fracture or dislocation. Intramedullary jerry in the tibia partially imaged. Pelvis and bilateral hips 4 views INDICATION: Fall. FINDINGS: Intact pelvic ring. Right femoral dynamic hip screw is present. No acute fracture or dislocation in either hip. Soft tissues are unremarkable. IMPRESSION: No acute findings in the pelvis or hips status post previous right dynamic hip screw fixation. PROCEDURE: HIP RIGHT 2V WITH PELVIS, TIBIA FIBULA RIGHT, KNEE RIGHT 4V, ANKLE RIGHT 3V, HAND RIGHT 3V CLINICAL INDICATION / HISTORY: Reason: FALL / Spl. Instructions: / History: . TECHNIQUE: Right ankle 3 views. COMPARISON: None FINDINGS: Intramedullary jerry in the right tibia is present with good osseous bridging through the distal right tibial fracture. No acute fracture and no malalignment. Soft tissues unremarkable. IMPRESSION: No acute osseous abnormality. Electronically signed by: Milagros Lerner MD (09/02/2020 7:25 PM) [facility] [place] DICTATED and SIGNED BY: MILAGROS LERNER MD DATE: 09/02/201924 [] Course & Med Decision Making: Course & Med Decision Making Pertinent Labs and Imaging studies reviewed. (See chart for details) See HPI. Patient's right fifth finger does not bend at the DIP or PIP and is very painful. Radial pulse strong and present. Cap refill less than 2 seconds. Small superficial abrasion to the right knee there is no knee swelling or tenderness. He has full range of motion of his knee. There is no tenderness to the tib-fib and there is no bruising or swelling or deformity. Patient has full range of motion of the right ankle and there is no bruising, swelling or deformity. Patient states his foot does not hurt and he did not injure it. Patient will be given a tetanus shot in the ED. He is given Percocet. No tenderness, deformity, abrasion, laceration, swelling to his skull or face. No focal bony spinal tenderness with palpation. Full range of motion of his neck. PERRLA. Right fifth finger is placed in a splint. Patient to follow-up with orthopedic as soon as possible. Neelima Disclaimer: Neelima Disclaimer: This electronic medical record was generated, in whole or in part, using a voice recognition dictation system. Departure Departure Impression: Primary Impression: Fall Qualified Codes: W19.XXXA - Unspecified fall, initial encounter Additional Impressions: Ankle pain, right Qualified Codes: M25.571 - Pain in right ankle and joints of right foot Knee pain, right Qualified Codes: M25.561 - Pain in right knee Hip pain, right Finger fracture, right Qualified Codes: S62.646A - Nondisplaced fracture of proximal phalanx of right little finger, initial encounter for closed fracture Disposition: DC HOME SELF CARE/HOMELESS Condition: STABLE Referrals: NO PCP (PCP) EDYTA MCGEE MD Patient Instructions: Abrasions, Fall Prevention and Home Safety, Finger Fracture Additional Instructions: Follow-up with orthopedic as soon as possible. Take pain medication and use ice to help with pain, swelling and bruising. Scripts Oxycodone/Apap 5-325 (PERCOCET 5-325 MG TABLET ) 1 Each Tablet 1 TAB PO PRN Q6HRS PRN for PAIN, #10 TAB 0 Refills Prov: JERSON WILLIAMSON APRN 09/02/20 JERSON WILLIAMSON APRN Sep 02, 2020 18:49
--- NOTE | 2020-09-02 19:26 | RAD ---
Examination: CT head and cervical spine without contrast CT HEAD INDICATION: Reason: FALL, HIT HEAD / Spl. Instructions: / History: COMPARISON: None Available. Exposure: One or more of the following individualized dose reduction techniques were utilized for this examination: 1. Automated exposure control 2. Adjustment of the mA and/or kV according to patient size 3. Use of iterative reconstruction technique TECHNIQUE: 5 mm contiguous axial images were obtained from the skull base to the vertex in both bone and soft tissue algorithm. FINDINGS: No abnormal attenuation within the brain parenchyma. No evidence of acute intracranial hemorrhage. No extra-axial fluid collections. No mass effect or midline shift. Ventricular size is appropriate. Basal cisterns are patent. No fractures identified.Gibson-white differentiation is preserved.Globes and orbits are within normal limits. Small mucous opacities in cyst or polyp partially visualized in the right maxillary sinus. IMPRESSION: No acute intracranial findings. CT CERVICAL SPINE INDICATION: Reason: FALL, HIT HEAD / Spl. Instructions: / History: COMPARISON: None Available. Technique: 2.5 mm contiguous axial images were obtained from the skull base through the cervicothoracic junction in both bone and soft tissue algorithm. Additional sagittal and coronal reconstructions were also performed. FINDINGS: Vertebral body height and alignment are maintained. Cervical lordosis is preserved. The lateral masses of C1 are aligned upon C2. No fractures identified. The bony canal is patent throughout. Mild intervertebral disc height loss identified in the cervical spine likely degenerative changes The paraspinous soft tissues are unremarkable. Visualized intracranial contents are unremarkable. Lung apices are clear. IMPRESSION: 1. No acute fracture cervical spine. Correlate clinically. 2. Mild degenerative changes cervical spine. Electronically signed by: Axel Hunter MD (09/02/2020 7:23 PM) [id number]
--- NOTE | 2020-09-02 19:29 | RAD ---
PROCEDURE: HIP RIGHT 2V WITH PELVIS, TIBIA FIBULA RIGHT, KNEE RIGHT 4V, ANKLE RIGHT 3V, HAND RIGHT 3V CLINICAL INDICATION / HISTORY: Reason: FALL / Spl. Instructions: / History: . TECHNIQUE: PA, lateral and oblique views of the right hand. COMPARISON: None FINDINGS: There is a lucency through the base of the proximal fifth phalanx that is suspicious for nondisplaced acute fracture. Otherwise no fracture or dislocation is identified. The bone density is normal. The joint spaces are maintained, and there are no erosions to suggest an inflammatory arthropathy. The soft tissues are unremarkable. IMPRESSION: Possible acute nondisplaced fracture of the base of the fifth proximal phalanx, extra-articular. Otherwise no acute findings PROCEDURE: HIP RIGHT 2V WITH PELVIS, TIBIA FIBULA RIGHT, KNEE RIGHT 4V, ANKLE RIGHT 3V, HAND RIGHT 3V CLINICAL INDICATION / HISTORY: Reason: FALL / Spl. Instructions: / History: . TECHNIQUE: PA, lateral and oblique views of the right hand. COMPARISON: None FINDINGS: There is lucency across the base of the fifth proximal phalanx of uncertain clinical significance. A nondisplaced acute fracture is possible. The rest of the bones of the right hand are unremarkable. The soft tissues are unremarkable. IMPRESSION: Possible nondisplaced fracture through the base of the fifth proximal phalanx. PROCEDURE: HIP RIGHT 2V WITH PELVIS, TIBIA FIBULA RIGHT, KNEE RIGHT 4V, ANKLE RIGHT 3V, HAND RIGHT 3V CLINICAL INDICATION / HISTORY: Reason: FALL / Spl. Instructions: / History: . TECHNIQUE: AP, lateral, and sunrise views of the right knee. COMPARISON: None FINDINGS: The osseous structures are intact. An intramedullary jerry and interlocking nail is present in the tibia. The articular surfaces are smooth. The joint space is maintained. No intra-articular loose bodies. The alignment is within normal limits. The soft tissues are notable for arterial calcifications.. No obvious joint effusion. No radio-opaque foreign bodies are identified. IMPRESSION: No acute fracture or dislocation. Intramedullary jerry in the tibia partially imaged. Pelvis and bilateral hips 4 views INDICATION: Fall. FINDINGS: Intact pelvic ring. Right femoral dynamic hip screw is present. No acute fracture or dislocation in either hip. Soft tissues are unremarkable. IMPRESSION: No acute findings in the pelvis or hips status post previous right dynamic hip screw fixation. PROCEDURE: HIP RIGHT 2V WITH PELVIS, TIBIA FIBULA RIGHT, KNEE RIGHT 4V, ANKLE RIGHT 3V, HAND RIGHT 3V CLINICAL INDICATION / HISTORY: Reason: FALL / Spl. Instructions: / History: . TECHNIQUE: Right ankle 3 views. COMPARISON: None FINDINGS: Intramedullary jerry in the right tibia is present with good osseous bridging through the distal right tibial fracture. No acute fracture and no malalignment. Soft tissues unremarkable. IMPRESSION: No acute osseous abnormality. Electronically signed by: Deisy Lerner MD (09/02/2020 7:25 PM) [facility] [place]
[2020-09-02] MEDS ORDERED: OXYC1TAB15 PO (19:44)
== END 2020-09-02 20:05 | disposition home or self-care (01) ==
LOC: ER 17:20
DX: S62.646A Nondisplaced fracture of proximal phalanx of right little finger, initial encounter for closed fracture (principal); S80.01XA Contusion of right knee, initial encounter; M25.571 Pain in right ankle and joints of right foot; M79.641 Pain in right hand; M25.551 Pain in right hip; I11.0 Hypertensive heart disease with heart failure; I50.9 Heart failure, unspecified; E11.9 Type 2 diabetes mellitus without complications; E78.00 Pure hypercholesterolemia, unspecified; I25.2 Old myocardial infarction; G89.29 Other chronic pain; F17.200 Nicotine dependence, unspecified, uncomplicated; Z98.890 Other specified postprocedural states; Z88.5 Allergy status to narcotic agent; W18.39XA Other fall on same level, initial encounter; Y93.89 Activity, other specified; Y92.89 Other specified places as the place of occurrence of the external cause; Y99.8 Other external cause status
CPT/HCPCS: 29130; 70450; 72125; 73130; 73502; 73564; 73590; 73610; 90471; 90715; 99285

== ENCOUNTER 2020-11-14 12:07 | Inpatient (IN) | payer MEDICARE, OTHER ==
[~2020-11-14] VITALS: Ht 190.5 cm; Wt 100.8 kg
[~2020-11-14 12:07] MED LIST changes: -LISI-334 PO; +LISI20TA18 PO; +OXYC1TAB15 PO
--- NOTE | 2020-11-14 13:10 | PHYS DOC ---
Past Medical History Past Medical History: CHF, Diabetes-Type II, High Cholesterol, Hypertension, [place], Renal Disease Additional Past Medical Histor: chronic back pain Past Surgical History: Other Additional Past Surgical Histo: HERNIA, peritoneal dialysis cath, 5-WAY CARDIAC BYPASS Smoking Status: Current Every Day Smoker Alcohol Use: None Drug Use: None General Adult EDM: Chief Complaint: HIP PAIN HPI: HPI: Patient is a 55 year old male who presents via EMS from home complaining of right-sided hip pain. 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 Today he states he was getting up out of his recliner, and when he shifted his weight he felt a sharp pain in his right hip and groin. He states the pain is medial in his right groin and radiates out laterally to his hip. It is worse when he tries to stand or move his leg, and gets better with rest. He states this is different than his normal chronic hip pain. He takes daily morphine for his chronic pain (back and leg), 15 mg 3 times daily. He took his first dose today but has not had any since this morning. He attempted to work with his physical therapist but was in too much pain, called his doctor and was instructed to come in to the ED for pain management. He rates his current pain 10/10+ and is refusing further physical exam without pain medication first. He denies any new numbness or tingling in his lower extremities, he reports no changes in his bowel or bladder habits (he is on dialysis so he makes minimal amounts of urine). He denies any nausea, vomiting, abdominal pain, headache, blurry vision, increased weakness and in arm or leg. He tells me his is his DPOA and she is currently on her way. Review of Systems: Review of Systems: Constitutional: Denies fever or chills Eyes: Denies redness or eye pain HENT: Denies nasal congestion or sore throat Respiratory: Denies cough or shortness of breath Cardiovascular: Denies chest pain or palpitations GI: Denies abdominal pain, nausea, or vomiting : Denies dysuria or hematuria Musculoskeletal: Denies back pain. Endorses right sided hip and groin pain. Integument: Denies rash or skin lesions Neurologic: Denies headache, focal weakness or sensory changes Complete systems were reviewed and found to be within normal limits, except as documented in this note. Allergies: Allergies: Allergies Coded Allergies Type Severity Reaction Last Updated Verified hydromorphone Allergy Severe Anaphylaxis 06/24/20 Yes Physical Exam: PE: Constitutional: Well developed, well nourished, no acute distress, non-toxic appearance HENT: Normocephalic, atraumatic Eyes: PERRL, EOMI, conjunctiva normal, no discharge Neck: Normal range of motion, no tenderness, supple Lungs & Thorax: No respiratory distress, equal chest rise and fall Abdomen: Soft, RLQ tenderness with guarding Skin: Warm, dry, no erythema, no rash Back: No tenderness, no CVA tenderness Extremities: No tenderness, ROM intact, no edema. Pulses +2/4 bilaterally in LE. Strength +3/5 bilaterally, he states this is not changed from his baseline. He uses a walker/cane to get around at home. Neurologic: Alert and oriented X 3, normal motor function, normal sensory function, no focal deficits noted. Decreased sensation in bilateral LE that he states is chronic due to diabetic neuropathy. Psychologic: Affect normal, judgment normal Current Patient Data: Vital Signs: Vital Signs Date Time Temp Pulse Resp B/P (MAP) Pulse Ox O2 Delivery O2 Flow Rate FiO2 11/14/20 12:13 98.1 67 16 134/63 (86) 95 Room Air 98.1 EKG: EKG: [] Radiology/Procedures: Radiology/Procedures: PROCEDURE: HIP RIGHT 2V WITH PELVIS Examination: 2 views of the right hip with frontal view of the pelvis HISTORY: History of right hip pain COMPARISON: 09/10/2020 FINDINGS: The right femoral head is within the acetabulum. Mild joint space loss identified in the right hip joint likely degenerative changes. Intramedullary jerry with dynamic hip screw unchanged.A bony density of the greater trochanter projecting posterior to the femoral neck similar to prior exam. Impression: 1. No acute bony abnormality Electronically signed by: Axel Hunter MD (11/14/2020 2:11 PM) [id number] PROCEDURE: CT ABDOMEN PELVIS WO CONTRAST CT ABDOMEN+PELVIS WO INDICATION: Reason: Right lower abdominal/pelvic pain / Spl. Instructions: / History: EXAM: Noncontrast CT of the abdomen and pelvis. Coronal and sagittal reformatted images were performed. PQRS compliance statement: One or more of the following individualized dose reduction techniques were utilized for this examination: 1. Automated exposure control 2. Adjustment of the mA and/or kV according to patient size 3. Use of iterative reconstruction technique COMPARISON: 04/27/2020 FINDINGS: No free air, free fluid, or fluid collection. Lower chest: The visualized lower lungs are aerated. No pleural or pericardial effusion. Cardiomegaly and extensive coronary artery atherosclerotic disease. ABDOMEN: Liver: The noncontrast liver is homogeneous in attenuation. Gallbladder and biliary: Cholecystectomy. Normal caliber bile ducts. Spleen: Normal spleen. Pancreas: The noncontrast pancreas is homogeneous in attenuation without peripancreatic inflammatory changes. Adrenal glands: Normal adrenal glands. Kidneys and ureters: No opaque urinary calculi. Normal kidneys and ureters. GI tract: The stomach is decompressed and poorly evaluated. Normal caliber small bowel and colon. Normal appendix. Vascular structures: Normal caliber abdominal aorta. Moderate aortoiliac atherosclerotic disease. Lymph nodes: No lymphadenopathy in the abdomen or pelvis. PELVIS: Genitourinary system: Normal bladder. SKELETAL STRUCTURES AND SOFT TISSUES: Degenerative changes of the spine. Prior ORIF of the right hip. IMPRESSION: No acute findings. Electronically signed by: Sean Blancas MD (11/14/2020 3:28 PM) [id number] Course & Med Decision Making: Course & Med Decision Making Pertinent Labs and Imaging studies reviewed. (See chart for details) Patient is a 55-year-old male with history of chronic right-sided head pain, presenting today for increased pain in his right hip/groin. Due to his history and physical exam and x-ray was indicated to assess for an acute bony pathology, that could be causing this increased amount of acute pain. His XR came back negative for any acute mckenzie abnormality. Even after his 10 mg of morphine IM he states his pain is still +8/10 (decreased from +10/10). Because of his persistent pain, CT abd/pelvis scan ordered, which was unremarkable for any ac tlingit & haida intraabdominal pathology. His labs were unremarkable, but due to failure to control pain with multiple morphine doses he meets admission criteria. He also missed dialysis today because he was in the ED, so he had concerns about waiting until Tuesday and felt more comfortable staying and getting dialysis tonight or tomorrow morning. Patient requiring admission for further evaluation and treatment. Discussed with Dr. Oden (hospitalist) who is in agreement with admission. Discussed findings and plan with patient, who acknowledges understanding and agreement. Neelima Disclaimer: Neelima Disclaimer: This electronic medical record was generated, in whole or in part, using a voice recognition dictation system. Departure Departure Impression: Primary Impression: Intractable pain Additional Impressions: Hip pain, right ESRD (end stage renal disease) on dialysis Disposition: ADMITTED INPT THIS HOSP Admitting Physician: ADAN Hill) Condition: STABLE Referrals: UNKNOWN PCP NAME (PCP) MOLINA ART DO Nov 14, 2020 13:10
[2020-11-14] MEDS ORDERED: MORPHINE SULFATE 10 MG/ML VIAL. IM ONE (13:45)
--- NOTE | 2020-11-14 14:13 | RAD ---
Examination: 2 views of the right hip with frontal view of the pelvis HISTORY: History of right hip pain COMPARISON: 09/10/2020 FINDINGS: The right femoral head is within the acetabulum. Mild joint space loss identified in the right hip be int likely degenerative changes. Intramedullary jerry with dynamic hip screw unchanged.A bony density o f the greater trochanter projecting posterior to the femoral neck similar to prior exam. Impression: 1. No acute bony abnormality Electronically signed by: Axel Hunter MD (11/14/2020 2:11 PM) [id number]
[2020-11-14] MEDS ORDERED: MORPHINE SULFATE 10 MG/ML VIAL. IV ONE (14:15)
[2020-11-14] MEDS ORDERED: CONTRAST GIVEN. MC PRN (14:30)
[2020-11-14] MEDS ORDERED: IOHEXOL 300 MG/ML 100ML VIAL. IV ONE (14:30)
--- NOTE | 2020-11-14 15:30 | RAD ---
CT ABDOMEN+PELVIS WO INDICATION: Reason: Right lower abdominal/pelvic pain / Spl. Instructions: / History: EXAM: Noncontrast CT of the abdomen and pelvis. Coronal and sagittal reformatted images were perform ed. PQRS compliance statement: One or more of the following individualized dose reduction techniques were utilized for this examinat ion: 1. Automated exposure control 2. Adjustment of the mA and/or kV according to patient size 3. Use of iterative reconstruction technique COMPARISON: 04/27/2020 FINDINGS: No free air, free fluid, or fluid collection. Lower chest: The visualized lower lungs are aerated. No pleural or pericardial effusion. Cardiomegaly and extensive coronary artery atherosclerotic disease. ABDOMEN: Liver: The noncontrast liver is homogeneous in attenuation. Gallbladder and biliary: Cholecystectomy. Normal caliber bile ducts. Spleen: Normal spleen. Pancreas: The noncontrast pancreas is homogeneous in attenuation without peripancreatic inflammatory changes. Adrenal glands: Normal adrenal glands. Kidneys and ureters: No opaque urinary calculi. Normal kidneys and ureters. GI tract: The stomach is decompressed and poorly evaluated. Normal caliber small bowel and colon. Nor mal appendix. Vascular structures: Normal caliber abdominal aorta. Moderate aortoiliac atherosclerotic disease. Lymph nodes: No lymphadenopathy in the abdomen or pelvis. PELVIS: Genitourinary system: Normal bladder. SKELETAL STRUCTURES AND SOFT TISSUES: Degenerative changes of the spine. Prior ORIF of the right hip. IMPRESSION: No acute findings. Electronically signed by: Sean Blancas MD (11/14/2020 3:28 PM) [id number]
[2020-11-14 15:36] LABS: BASO # 0.1 x10^3/uL (0.0-0.2); BASO % 1 % (0-3); EOS # 0.2 x10^3/uL (0.0-0.7); EOS % 2 % (0-3); HEMATOCRIT 32.6 % (39.0-53.0); LYMPH # 2.7 x10^3/uL (1.0-4.8); LYMPH % 21 % (24-48); MEAN CORPUSCULAR HEMOGLOBIN 33 pg (25-35); MEAN CORPUSCULAR HGB CONC 34 g/dL (31-37); MEAN CORPUSCULAR VOLUME 96 fL (79-100); MONO # 1.1 x10^3/uL (0.0-1.1); MONO % 9 % (0-9); NEUT # 8.6 x10^3/uL (1.8-7.7); NEUT % 68 % (31-73); PLATELET COUNT 224 x10^3/uL (140-400); RED BLOOD COUNT 3.39 x10^6/uL (4.30-5.70); RED CELL DISTRIBUTION WIDTH 13.6 % (11.5-14.5); WHITE BLOOD COUNT 12.8 x10^3/uL (4.0-11.0)
[2020-11-14 15:46] LABS: CALCIUM 9.2 mg/dL (8.5-10.1); CREATININE 7.8 mg/dL (0.7-1.3); GFR 7.3; POTASSIUM 4.5 mmol/L (3.5-5.1)
[2020-11-14 15:51] LABS: ALBUMIN 3.3 g/dL (3.4-5.0); ALBUMIN/GLOBULIN RATIO 0.7 (1.0-1.7); TOTAL BILIRUBIN 0.4 mg/dL (0.2-1.0)
[2020-11-14] MEDS ORDERED: DEXTROSE 50% 25 GM / 50ML DISP.SYRIN. IV PRN (16:30)
[2020-11-14] MEDS ORDERED: ONDANSETRON PF 4 MG/2 ML VIAL. IV PRN (16:30)
[2020-11-14] MEDS: MORPHINE SULFATE 4 MG/ML VIAL. IV PRN ×3 (17:28→21:48)
[2020-11-14] MEDS: INSULIN LISPRO 300 UNITS/3 ML VIAL. SQ SCH (19:12)
--- NOTE | 2020-11-14 19:37 | HP ---
ADMIT DATE: 11/14/2020 CHIEF COMPLAINT: Hip pain. HISTORY OF PRESENT ILLNESS: The patient is a pleasant 55-year-old male who presented today with right sided hip pain. He suffered a hip fracture in 2019. He has got hardware. He also had a traumatic brain injury at that time. Basically, the hip pain today has gotten worse. He fell. It happened when he was getting up from his recliner. He shifted his weight and then had a sharp pain in his right groin. Because of that, he has not been able to go to dialysis today as well since he is here at the hospital. We have given him 3 doses of morphine and he does take chronic morphine at home. Rates his pain at 10/10, described as very irritating. I discussed the case with ER physician. We are going to admit the patient for pain management and to consult Nephrology to get him dialyzed again. PAST MEDICAL HISTORY: End-stage renal disease, on dialysis; chronic pain, probable narcotic dependence, polypharmacy, hyperlipidemia, hypertension, angina, CHF, volume overload, arthritis, neuropathy, GERD, diabetes. ALLERGIES: HYDROMORPHONE. FAMILY HISTORY: Diabetes. SOCIAL HISTORY: He does not drink, smoke or take drugs. He is retired. MEDICATIONS: Reviewed. He is on 24. Please refer to the MRAD. REVIEW OF SYSTEMS: GENERAL: No history of weight change, weakness or fevers. SKIN: No bruising, hair changes or rashes. EYES: No blurred, double or loss of vision. NOSE AND THROAT: No history of nosebleeds, hoarseness or sore throat. HEART: No history of palpitations, chest pain or shortness of breath on exertion. LUNGS: Denies cough, hemoptysis, wheezing or shortness of breath. GASTROINTESTINAL: Denies changes in appetite, nausea, vomiting, diarrhea or constipation. GENITOURINARY: No history of frequency, urgency, hesitancy or nocturia. NEUROLOGIC: Denies history of numbness, tingling, tremor or weakness. PSYCHIATRIC: No history of panic, anxiety or depression. ENDOCRINE: No history of heat or cold intolerance, polyuria or polydipsia. EXTREMITIES: He complains of right hip pain. PHYSICAL EXAMINATION: VITALS: Within normal limits and are stable. GENERAL: No apparent distress. Alert and oriented. HEENT: Normal cephalic atraumatic, external auditory canals are patent. EYES: Extraocular muscles are intact, pupils are equally round and reactive to light and accommodation. MUSCULOSKELETAL: Well developed, well nourished, good range of motion. ENDOCRINE: No thyromegaly was palpated. LYMPHATICS: No cervical chain or axillary nodes were noted. HEMATOPOIETIC: No bruising. NECK: Supple, no JVD, no thyromegaly was noted. LUNGS: Clear to auscultation in all lung hernandez without rhonchi or wheezing. HEART: RRR, S1, S2 present. Peripheral pulses intact, no obvious murmurs were noted. ABDOMEN: Soft, nontender. Positive bowel sounds no organomegaly, normal bowel sounds. EXTREMITIES: The right hip is painful to touch. NEUROLOGIC: Normal speech, normal tone. A & O x 3, moves all extremities, no obvious focal deficits. PSYCHIATRIC: Normal affect, normal mood. Stable. SKIN: No ulcerations or rashes, good skin turgor, no jaundice. VASCULAR: Good capillary refill, neurovascular bundle appears to be intact. Imaging studies of the hip did not show any acute fractures. ASSESSMENT AND PLAN: Intractable right hip pain in a middle-aged male who has end-stage renal disease and multiple comorbidities. The patient has been admitted. We will consult Dr. Hernandez for dialysis. Continue our p.r.n. morphine, home meds, DVT prophylaxis. Full code. P.r.n. Claude. MAX CANSECO DO DR: EZ/kareem JOB#: [id number] / [id number]
[2020-11-14 20:15] VITALS: BP 172/73
[2020-11-14] MEDS ORDERED: MORP-15 PO (22:26)
[2020-11-14 22:51] VITALS: BP 177/79
[2020-11-15] MEDS: MORPHINE SULFATE 4 MG/ML VIAL. IV PRN ×5 (00:03→20:52)
[2020-11-15 00:39] LABS: BILIRUBIN,URINE SMALL (NEG); CLARITY,URINE CLEAR; COLOR,URINE YELLOW; NITRITE,URINE NEGATIVE (NEG); PROTEIN,URINE >=300 mg/dL (NEG-TRACE); UROBILINOGEN,URINE 0.2 mg/dL (0.2 mg/dL)
[2020-11-15 00:49] LABS: AMORPHOUS SEDIMENT,UR PRESENT /HPF; BACTERIA,URINE 0 /HPF (0-FEW); GRANULAR CASTS,URINE OCCASIONAL /HPF; HYALINE CASTS, URINE FEW /HPF; RBC,URINE RARE /HPF (0-2); WBC,URINE RARE /HPF (0-4)
[2020-11-15 02:43] VITALS: BP 166/81
[2020-11-15 07:00] VITALS: BP 147/74
[2020-11-15] MEDS: INSULIN LISPRO 300 UNITS/3 ML VIAL. SQ SCH ×3 (07:54→17:00)
[2020-11-15] MEDS ORDERED: FLU VACC QS 2020-21(6MOS+)/PF 0.5 ML SYRINGE. VAX IM ONE (09:00)
[2020-11-15] MEDS ORDERED: oxyCODONE/APAP 10/325 1 TAB TABLET PO PRN (09:30)
--- NOTE | 2020-11-15 09:58 | NUR ---
Called pharmacy ([facility]) in [place] to confirm dose.
[2020-11-15] MEDS ORDERED: MORPHINE SULFATE 2 MG/ML VIAL. IV PRN (10:00)
[2020-11-15] MEDS ORDERED: ONDANSETRON ODT 4 MG TAB.RAPDIS. PO PRN (10:00)
[2020-11-15] MEDS: FOLIC/VIT B COMP W-C (RENAL) TABLET. PO SCH (10:25)
[2020-11-15] MEDS: ASPIRIN CHEWABLE 81 MG TABLET. PO SCH (10:25)
[2020-11-15] MEDS: LISINOPRIL 20 MG TABLET PO SCH (10:25)
[2020-11-15] MEDS: DOCUSATE SODIUM 100 MG CAPSULE. PO SCH (10:25)
[2020-11-15] MEDS: LUBIPROSTONE 24 MCG CAPSULE PO SCH (10:26)
[2020-11-15] MEDS: RANOLAZINE 500 MG TAB.ER.12H PO SCH ×2 (10:26→20:22)
[2020-11-15] MEDS: DIVALPROEX DELAYED RELEASE 500 MG TABLET.DR. PO SCH ×2 (10:26→20:23)
[2020-11-15 11:00] VITALS: BP 159/77
--- NOTE | 2020-11-15 11:27 | PDOC ---
[facility] PROGRESS NOTE Date of Service DOS: DATE: 11/15/20 TIME: 11:23 Chief Complaint Chief Complaint Intractable right hip pain Chronic pain ESRD HD Consult Dr. Orellana for pain management and hip pain Appreciate nephrology consult for hemodialysis Change IV morphine to 4 mg every 2 hours as needed and 4 mg every 2 hours for breakthrough Restart home morphine long-acting Heparin for DVT prophylaxis Protonix GI prophylaxis ADA diet Full code Discussed with RN and SW Disposition inpatient management as above Surrogate decision maker is the History of Present Illness History of Present Illness 11/15/2020 No acute events overnight. Patient continues to complain of pain in his right hip. He states that he needs IV pain control. He does experience chronic pain at home and has had a since a fall about 2 years ago. Patient's chart, labs, images were reviewed and discussed with RN 55-year-old male who presented today with right sided hip pain. He suffered a hip fracture in 2019. He has got hardware. He also had a traumatic brain injury at that time. Basically, the hip pain today has gotten worse. He fell. It happened when he was getting up from his recliner. He shifted his weight and then had a sharp pain in his right groin. Because of that, he has not been able to go to dialysis today as well since he is here at the hospital. We have given him 3 doses of morphine and he does take chronic morphine at home. Rates his pain at 10/10, described as very irritating. Vitals/I&O Vitals/I&O: Vital Signs Date Time Temp Pulse Resp B/P (MAP) Pulse Ox O2 Delivery O2 Flow Rate FiO2 11/15/20 11:00 98.2 68 18 159/77 (104) 90 Room Air 98.2 I & O 11/14/20 11/14/20 11/15/20 15:00 23:00 07:00 Intake Total 800 ml 260 ml Output Total 400 ml Balance 800 ml -140 ml Physical Exam Lungs: Clear Labs Labs: Laboratory Tests Test 11/14/20 15:29 11/14/20 17:34 11/14/20 20:56 11/15/20 00:30 White Blood Count 12.8 x10^3/uL (4.0-11.0) Red Blood Count 3.39 x10^6/uL (4.30-5.70) Hemoglobin 11.0 g/dL (13.0-17.5) Hematocrit 32.6 % (39.0-53.0) Mean Corpuscular Volume 96 fL (79-100) Mean Corpuscular Hemoglobin 33 pg (25-35) Mean Corpuscular Hemoglobin Concent 34 g/dL (31-37) Red Cell Distribution Width 13.6 % (11.5-14.5) Platelet Count 224 x10^3/uL (140-400) Neutrophils (%) (Auto) 68 % (31-73) Lymphocytes (%) (Auto) 21 % (24-48) Monocytes (%) (Auto) 9 % (0-9) Eosinophils (%) (Auto) 2 % (0-3) Basophils (%) (Auto) 1 % (0-3) Neutrophils # (Auto) 8.6 x10^3/uL (1.8-7.7) Lymphocytes # (Auto) 2.7 x10^3/uL (1.0-4.8) Monocytes # (Auto) 1.1 x10^3/uL (0.0-1.1) Eosinophils # (Auto) 0.2 x10^3/uL (0.0-0.7) Basophils # (Auto) 0.1 x10^3/uL (0.0-0.2) Sodium Level 133 mmol/L (136-145) Potassium Level 4.5 mmol/L (3.5-5.1) Chloride Level 95 mmol/L (98-107) Carbon Dioxide Level 25 mmol/L (21-32) Anion Gap 13 (6-14) Blood Urea Nitrogen 54 mg/dL (8-26) Creatinine 7.8 mg/dL (0.7-1.3) Estimated GFR (Cockcroft-Gault) 7.3 BUN/Creatinine Ratio 7 (6-20) Glucose Level 188 mg/dL (70-99) Lactic Acid Level 1.5 mmol/L (0.4-2.0) Calcium Level 9.2 mg/dL (8.5-10.1) Total Bilirubin 0.4 mg/dL (0.2-1.0) Aspartate Amino Transf (AST/SGOT) 28 U/L (15-37) Alanine Aminotransferase (ALT/SGPT) 23 U/L (16-63) Alkaline Phosphatase 134 U/L (46-116) Total Protein 8.0 g/dL (6.4-8.2) Albumin 3.3 g/dL (3.4-5.0) Albumin/Globulin Ratio 0.7 (1.0-1.7) Glucose (Fingerstick) 148 mg/dL (70-99) 148 mg/dL (70-99) Urine Collection Type Unknown Urine Color Yellow Urine Clarity Clear Urine pH 5.0 (<5.0-8.0) Urine Specific [place] 1.015 (1.000-1.030) Urine Protein >=300 mg/dL (NEG-TRACE) Urine Glucose (UA) 100 mg/dL (NEG) Urine Ketones (Stick) Negative mg/dL (NEG) Urine Blood Negative (NEG) Urine Nitrite Negative (NEG) Urine Bilirubin Small (NEG) Urine Urobilinogen Dipstick 0.2 mg/dL (0.2 mg/dL) Urine Leukocyte Esterase Negative (NEG) Urine RBC Rare /HPF (0-2) Urine WBC Rare /HPF (0-4) Urine Squamous Epithelial Cells Few /LPF Urine Amorphous Sediment Present /HPF Urine Bacteria 0 /HPF (0-FEW) Urine Hyaline Casts Few /HPF Urine Granular Casts Occasional /HPF Urine Mucus Slight /LPF Test 11/15/20 07:23 11/15/20 10:34 Glucose (Fingerstick) 123 mg/dL (70-99) 159 mg/dL (70-99) Assessment and Plan Assessmemt and Plan Problems Medical Problems: (1) Hip pain, right Status: Acute (2) Intractable pain Status: Acute Comment Review of Relevant I have reviewed the following items nelda (where applicable) has been applied. Medications: Current Medications Medications (Trade) Dose Ordered Sig/Brittani Route PRN Reason Start Time Stop Time Status Last Admin Dose Admin Morphine Sulfate (Morphine Sulfate) 10 mg 1X ONCE IM 11/14/20 13:45 11/14/20 13:46 DC 11/14/20 13:27 Morphine Sulfate (Morphine Sulfate) 10 mg 1X ONCE IV 11/14/20 14:15 11/14/20 14:21 DC 11/14/20 15:52 Morphine Sulfate (Morphine Sulfate) 10 mg PRN Q2HR PRN IV PAIN 11/14/20 16:30 11/15/20 09:45 DC 11/15/20 04:23 Amlodipine Besylate (Norvasc) 10 mg DAILY PO 11/15/20 11:00 11/15/20 10:25 Aspirin (Aspirin Chewable) 81 mg DAILY PO 11/15/20 11:00 11/15/20 10:25 Divalproex Sodium (Depakote) 1,000 mg BID PO 11/15/20 11:00 11/15/20 10:26 Docusate Sodium (Colace) 100 mg DAILY PO 11/15/20 11:00 11/15/20 10:25 Vitamin B Complex/ Vitamin C (Gissel-Irvin) 1 tab DAILY PO 11/15/20 11:00 11/15/20 10:25 Lisinopril (Prinivil) 20 mg DAILY PO 11/15/20 11:00 11/15/20 10:25 Lubiprostone (Amitiza) 24 mcg DAILY PO 11/15/20 11:00 11/15/20 10:26 Ranolazine (Ranexa) 500 mg BID PO 11/15/20 11:00 11/15/20 10:26 Morphine Sulfate (Morphine Sulfate) 4 mg PRN Q2HR PRN IV PAIN 11/15/20 09:45 11/15/20 10:23 Justifications for Admission Other Justification DILSHAD PALMA MD Nov 15, 2020 11:27
--- NOTE | 2020-11-15 12:07 | NUR ---
patient asked when he would get dialysis. Dr. dow. Awaiting call back.
[2020-11-15] MEDS: SEVELAMER CARBONATE 800 MG TABLET. PO SCH ×2 (13:16→18:04)
[2020-11-15] MEDS: MORPHINE ER 15 MG TABLET.ER PO SCH ×2 (13:16→20:23)
--- NOTE | 2020-11-15 16:57 | CONS ---
DATE OF CONSULTATION: REQUESTING PHYSICIAN: Hospitalist. REASON FOR CONSULTATION: Renal failure. HISTORY OF PRESENT ILLNESS: The patient is a 55-year-old gentleman with history of diabetes mellitus, hypertension; end-stage renal disease, hemodialysis dependent on Tuesday, Tuesday and Tuesday. He missed his dialysis on the day prior to this consultation. Currently admitted with intractable right hip pain. He will need ongoing management of dialysis and comorbidities associated with end-stage renal disease. PAST MEDICAL HISTORY: Diabetes mellitus, hypertension; end-stage renal disease, hemodialysis dependent on Tuesday, Tuesday, Tuesday; chronic pain with narcotic dependence, congestive cardiomyopathy, degenerative arthritis, peripheral neuropathy, GE reflux disease. ALLERGIES: HYDROMORPHONE. MEDICATIONS: Reviewed per medication list. FAMILY HISTORY: Noncontributory. SOCIAL HISTORY: The patient resides with assistance. He is retired. REVIEW OF SYSTEMS: No headache, sinus problem, nasal drainage, epistaxis, change in vision or hearing, difficulty swallowing. No fever, chills, cough, sputum production or hemoptysis. No chest pain or shortness of breath. No abdominal pain. No nausea, vomiting or diarrhea. No seizures or malignancies. He has right hip pain. PHYSICAL EXAMINATION: GENERAL APPEARANCE: The patient is somnolent, groggy, but awakens. HEENT: Clear. NECK: No increased JVD. No thyromegaly, mass or adenopathy. LUNGS: Clear. CARDIAC: Without S3 or rub. ABDOMEN: Obese, bowel sounds are present. Nontender. EXTREMITIES: Without edema. NEUROLOGIC: Nonfocal, nonlocalized. PSYCHIATRIC: Reduced attention to detail, groggy. LABORATORY DATA: Hemoglobin 11, hematocrit 32.6. White count 12.8. Sodium 133, potassium 4.5, chloride 95, CO2 of 25, creatinine 7.8, GFR 7.3, calcium 9.2, albumin 3.3. IMPRESSION: 1. End-stage renal disease secondary to diabetes mellitus and hypertension. 2. Anemia of chronic kidney disease. 3. Right hip pain. RECOMMENDATIONS: 1. Ongoing management of dialysis on Tuesday, Tuesday and Tuesday. Epogen for anemia of chronic kidney disease. 2. Pain management per primary. MOLINA HERNANDEZ MD DR: CHAI/kareem JOB#: [id number] / [id number]
[2020-11-15] MEDS ORDERED: DIALYSIS PATIENT. MC PRN (17:15)
[2020-11-15] MEDS: CARVEDILOL 12.5 MG TABLET. PO SCH (18:03)
[2020-11-15 19:00] VITALS: BP 128/66
[2020-11-15] MEDS: ATORVASTATIN CALCIUM 40 MG TABLET. PO SCH (20:22)
[2020-11-15] MEDS: GABAPENTIN 300 MG CAPSULE. PO SCH (20:23)
[2020-11-15] MEDS: CITALOPRAM 20 MG TABLET. PO SCH (20:23)
[2020-11-15 23:00] VITALS: BP 150/72
[2020-11-16] MEDS: MORPHINE SULFATE 4 MG/ML VIAL. IV PRN ×3 (01:43→11:47)
[2020-11-16 03:01] VITALS: BP 119/69
[2020-11-16 07:00] VITALS: BP 164/74
[2020-11-16] MEDS: INSULIN LISPRO 300 UNITS/3 ML VIAL. SQ SCH ×3 (08:00→17:16)
--- NOTE | 2020-11-16 09:34 | PDOC ---
[facility] PROGRESS NOTE Date of Service DOS: DATE: 11/16/20 TIME: 09:33 Chief Complaint Chief Complaint Intractable right hip pain Chronic pain ESRD HD Consult Dr. Orellana for pain management and hip pain Appreciate nephrology consult for hemodialysis Change IV morphine to 4 mg every 2 hours as needed and 4 mg every 2 hours for breakthrough Restart home morphine long-acting Heparin for DVT prophylaxis Protonix GI prophylaxis ADA diet Full code Discussed with RN and SW Disposition inpatient management as above Surrogate decision maker is the History of Present Illness History of Present Illness 11/16/2020 No acute events overnight. Patient remains afebrile. Patient continues to have chronic right hip pain. Lying in bed and holding onto his right hip area. He did require a total of 60 mg IV morphine. Converted his dose to p.o. morphine and requires an extra 45 mg. Increased his MS Contin from 15 mg 3 times daily to 30 mg 3 times daily. Patient's chart, labs, images were reviewed and discussed with RN 11/15/2020 No acute events overnight. Patient continues to complain of pain in his right hip. He states that he needs IV pain control. He does experience chronic pain at home and has had a since a fall about 2 years ago. Patient's chart, labs, images were reviewed and discussed with RN 55-year-old male who presented today with right sided hip pain. He suffered a hip fracture in 2019. He has got hardware. He also had a traumatic brain injury at that time. Basically, the hip pain today has gotten worse. He fell. It happened when he was getting up from his recliner. He shifted his weight and then had a sharp pain in his right groin. Because of that, he has not been able to go to dialysis today as well since he is here at the hospital. We have given him 3 doses of morphine and he does take chronic morphine at home. Rates his pain at 10/10, described as very irritating. Vitals/I&O Vitals/I&O: Vital Signs Date Time Temp Pulse Resp B/P (MAP) Pulse Ox O2 Delivery O2 Flow Rate FiO2 11/16/20 07:00 68 16 164/74 (104) 90 Room Air 11/16/20 03:01 97.9 97.9 I & O 0 11/15/20 11/15/20 11/16/20 15:00 23:00 07:00 Intake Total 540 ml 240 ml Output Total 200 ml 650 ml Balance 340 ml 240 ml -650 ml Physical Exam Lungs: Clear Labs Labs: Laboratory Tests Test 11/15/20 10:34 11/15/20 17:49 11/15/20 20:35 11/16/20 07:26 Glucose (Fingerstick) 159 mg/dL (70-99) 123 mg/dL (70-99) 137 mg/dL (70-99) 89 mg/dL (70-99) Assessment and Plan Assessmemt and Plan Problems Medical Problems: (1) Hip pain, right Status: Acute (2) Intractable pain Status: Acute Comment Review of Relevant I have reviewed the following items nelda (where applicable) has been applied. Medications: Current Medications Medications (Trade) Dose Ordered Sig/Brittani Route PRN Reason Start Time Stop Time Status Last Admin Dose Admin Amlodipine Besylate (Norvasc) 10 mg DAILY PO 11/15/20 11:00 11/15/20 10:25 Aspirin (Aspirin Chewable) 81 mg DAILY PO 11/15/20 11:00 11/15/20 10:25 Atorvastatin Calcium (Lipitor) 40 mg QHS PO 11/15/20 21:00 11/15/20 20:22 Carvedilol (Coreg) 25 mg BIDWMEALS PO 11/15/20 17:00 11/15/20 18:03 Divalproex Sodium (Depakote) 1,000 mg BID PO 11/15/20 11:00 11/15/20 20:23 Docusate Sodium (Colace) 100 mg DAILY PO 11/15/20 11:00 11/15/20 10:25 Vitamin B Complex/ Vitamin C (Gissel-Irvin) 1 tab DAILY PO 11/15/20 11:00 11/15/20 10:25 Gabapentin (Neurontin) 300 mg QHS PO 11/15/20 21:00 11/15/20 20:23 Lisinopril (Prinivil) 20 mg DAILY PO 11/15/20 11:00 11/15/20 10:25 Lubiprostone (Amitiza) 24 mcg DAILY PO 11/15/20 11:00 11/15/20 10:26 Morphine Sulfate (Ms Contin) 15 mg TID PO 11/15/20 14:00 11/16/20 07:34 DC 11/15/20 20:23 Ranolazine (Ranexa) 500 mg BID PO 11/15/20 11:00 11/15/20 20:22 Sevelamer Carbonate (Renvela) 800 mg TIDWMEALS PO 11/15/20 12:00 11/15/20 18:04 Citalopram Hydrobromide (CeleXA) 40 mg HS PO 11/15/20 21:00 11/15/20 20:23 Morphine Sulfate (Morphine Sulfate) 4 mg PRN Q2HR PRN IV PAIN 11/15/20 09:45 11/16/20 05:50 Justifications for Admission Other Justification DILSHAD PALMA MD Nov 16, 2020 09:34
[2020-11-16] MEDS: ASPIRIN CHEWABLE 81 MG TABLET. PO SCH (09:40)
[2020-11-16] MEDS: FOLIC/VIT B COMP W-C (RENAL) TABLET. PO SCH (09:40)
[2020-11-16] MEDS: SEVELAMER CARBONATE 800 MG TABLET. PO SCH ×3 (09:40→17:13)
[2020-11-16] MEDS: LUBIPROSTONE 24 MCG CAPSULE PO SCH (09:41)
[2020-11-16] MEDS: DOCUSATE SODIUM 100 MG CAPSULE. PO SCH (09:41)
[2020-11-16] MEDS: PANTOPRAZOLE 40 MG TABLET.DR. PO SCH (09:41)
[2020-11-16] MEDS: DIVALPROEX DELAYED RELEASE 500 MG TABLET.DR. PO SCH ×2 (09:41→21:32)
[2020-11-16] MEDS: RANOLAZINE 500 MG TAB.ER.12H PO SCH ×2 (09:41→21:31)
[2020-11-16] MEDS: CARVEDILOL 12.5 MG TABLET. PO SCH ×2 (09:42→17:13)
[2020-11-16] MEDS: LISINOPRIL 20 MG TABLET PO SCH (09:42)
[2020-11-16] MEDS: MORPHINE ER 30 MG TABLET.ER PO SCH ×3 (09:42→21:32)
[2020-11-16 11:00] VITALS: BP 148/61
--- NOTE | 2020-11-16 14:45 | NUR ---
patient refusing wound assessment and pictures. Addendum: 11/16/20 at 1446 by BOUCHRA SALDANA RN RN Amended: Links added.
[2020-11-16 15:00] VITALS: BP 142/70
[2020-11-16 19:00] VITALS: BP 123/63
--- NOTE | 2020-11-16 19:37 | NUR ---
called of patient. stated she has DPOA paperwork of and will bring by tomorrow. states that due to a TBI, patient is unable to make decisions. states that she would like to get rehab d/t being unsteady and previous falls at home.
[2020-11-16] MEDS: GABAPENTIN 300 MG CAPSULE. PO SCH (21:31)
[2020-11-16] MEDS: ATORVASTATIN CALCIUM 40 MG TABLET. PO SCH (21:31)
[2020-11-16] MEDS: CITALOPRAM 20 MG TABLET. PO SCH (21:31)
[2020-11-16 23:00] VITALS: BP 159/66
[2020-11-17 03:00] VITALS: BP 134/73
[2020-11-17 07:00] VITALS: BP 177/80
[2020-11-17] MEDS: INSULIN LISPRO 300 UNITS/3 ML VIAL. SQ SCH ×3 (07:32→17:00)
[2020-11-17] MEDS: ASPIRIN CHEWABLE 81 MG TABLET. PO SCH (08:06)
[2020-11-17] MEDS: DIVALPROEX DELAYED RELEASE 500 MG TABLET.DR. PO SCH ×2 (08:06→20:14)
[2020-11-17] MEDS: PANTOPRAZOLE 40 MG TABLET.DR. PO SCH (08:07)
[2020-11-17] MEDS: MORPHINE ER 30 MG TABLET.ER PO SCH ×3 (08:07→20:13)
[2020-11-17] MEDS: FOLIC/VIT B COMP W-C (RENAL) TABLET. PO SCH (08:07)
[2020-11-17] MEDS: SEVELAMER CARBONATE 800 MG TABLET. PO SCH ×3 (08:07→17:00)
[2020-11-17] MEDS: LUBIPROSTONE 24 MCG CAPSULE PO SCH (08:07)
[2020-11-17] MEDS: RANOLAZINE 500 MG TAB.ER.12H PO SCH ×2 (08:07→20:14)
[2020-11-17] MEDS: DOCUSATE SODIUM 100 MG CAPSULE. PO SCH (08:07)
[2020-11-17] MEDS: LISINOPRIL 20 MG TABLET PO SCH (08:08)
[2020-11-17] MEDS: CARVEDILOL 12.5 MG TABLET. PO SCH ×2 (08:08→17:00)
[2020-11-17] MEDS ORDERED: DIALYSIS PATIENT. MC PRN ×2 (08:30)
[2020-11-17] MEDS ORDERED: IV NORMAL SALINE 1000ML BAG 1,000 ML IV PRN ×2 (08:30)
[2020-11-17] MEDS ORDERED: methylPREDNISolone ACETATE 40 MG/ML VIAL. IM ONE ×2 (09:00→14:00)
[2020-11-17] MEDS ORDERED: BUPIVACAINE MPF 0.25% 10 ML VIAL. IJ ONE ×2 (09:00→13:45)
--- NOTE | 2020-11-17 09:08 | PDOC ---
[facility] [facility] PROGRESS NOTE Date of Service DOS: DATE: 11/17/20 TIME: 08:58 Chief Complaint Chief Complaint A/P: Intractable right hip pain Chronic pain ESRD HD Falls - will have PT to assess gait, balance. Diabetes, II--insulin dependent with hyperglycemia - will cont sliding scale. reduce glargine with hypoglycemia to 18u, 6u lispro with meals and high sliding scale and 10 u IV insulin now CAD s/p CABG. Cath 2019 with patent grafts HTN - will cont meds BP disorder - on depakote Seizures - on depakote Acute on chronic diastolic CHF; Echo 07/19 with preserved LV systolic function - will diurese, still makes some urine, likely gained weight 2/2 starting PD, will need UF Hyperlipidemia - cont statin ESRD on HD - transitioned back to HD, will consult nephrology Weight gain - dry weight previously 110kg, now 111kg will consult nephrology for further recs. Smoker - counseled on cessation Hyponatremia - due to hyperglycemia, will monitor Anemia - of chronic renal insufficiency Consult Dr. Orellana for pain management and hip pain Appreciate nephrology consult for hemodialysis Change IV morphine to 4 mg every 2 hours as needed and 4 mg every 2 hours for breakthrough Restart home morphine long-acting Heparin for DVT prophylaxis Protonix GI prophylaxis ADA diet Full code Discussed with RN and SW Disposition inpatient management as above Surrogate decision maker is the History of Present Illness History of Present Illness 11/17: No overnight events. Still confused, c/o hip pain. Unable to lay still for fluoro injection. Tolerated dialysis well. chart and labs reviewed with nursing staff 11/16/2020 No acute events overnight. Patient remains afebrile. Patient continues to have chronic right hip pain. Lying in bed and holding onto his right hip area. He did require a total of 60 mg IV morphine. Converted his dose to p.o. morphine and requires an extra 45 mg. Increased his MS Contin from 15 mg 3 times daily to 30 mg 3 times daily. Patient's chart, labs, images were reviewed and discussed with RN 11/15/2020 No acute events overnight. Patient continues to complain of pain in his right hip. He states that he needs IV pain control. He does experience chronic pain at home and has had a since a fall about 2 years ago. Patient's chart, labs, images were reviewed and discussed with RN Mr Bedolla 54 yo M w/ PMHx smoker, CAD s/p CABG x4 in 2017, ischemic CM, ESRD on HD, BP disorder, seizure disorder, DM2, HTN, smoker who presents to ED c/o right hip pain chest pain that he describes as sharp and nonradiating for the past 24 hours prior to admit. Pain is constant 10/10. Pain worsened after a fall from his recliner day of admission. He shifted his weight and then had a sharp pain in his right groin. He suffered a hip fracture in 2018. He has got hardware. He also had a traumatic brain injury at that time. Was seen for chest pain 1 month ago and treated for bronchitis, patient states he felt like he had gotten better. He denies any recent fevers, coughing, vomiting, diarrhea Denies fever, vomiting, diarrhea, dizziness, syncope, headache, vision changes, focal weakness, numbness or tingling and no recent travel or sick contacts. He was on hospice until December 2019 and now relates he is awaiting renal transplant. UDS negative despite reports of opioid use. EKG Sinus rhythm, left axis deviation, heart rate 73, no ST elevations or depressions, no ectopy. Chest radiograph with bibasilar atelectasis. Labs significant for WBC 6.2, Hb 10.1, platelets 195, NA 130, K4, BUN 37, CR 4.8, glucose 734, calcium 8.4, BNP greater than 35,000, troponin II 0.859, a lbumin 3.1. He is s/p PD cath placement 04/04/2020 with no signs of peritonitis and had removal in May and then transitioned back to HD thereafter. Left heart catheterization 04/29/2020, showed severe triple-vessel disease, 4 patent bypass grafts, diffuse > 70% triple vessel disease with LAD 70-80% occlusion. EF 40-45% on ventriculogram at the time. Echocardiogram 07/18/2020 showed ejection fraction 55-60% Admitted for further care. Vitals/I&O Vitals/I&O: Vital Signs Date Time Temp Pulse Resp B/P (MAP) Pulse Ox O2 Delivery O2 Flow Rate FiO2 11/17/20 08:08 68 177/80 11/17/20 08:07 Room Air 11/17/20 07:00 98.7 16 93 98.7 I & O 11/16/20 11/16/2011/17/21 15:00 23:00 07:00 Intake Total 500 ml 200 ml 300 ml Balance 500 ml 200 ml 300 ml Physical Exam Lungs: Clear Labs Labs: Laboratory Tests Test 11/16/20 11:05 11/16/20 17:00 11/16/20 20:38 11/17/20 06:54 Glucose (Fingerstick) 137 mg/dL (70-99) 193 mg/dL (70-99) 70 mg/dL (70-99) 124 mg/dL (70-99) Assessment and Plan Assessmemt and Plan Problems Medical Problems: (1) Hip pain, right Status: Acute (2) Intractable pain Status: Acute Comment Review of Relevant I have reviewed the following items nelda (where applicable) has been applied. Medications: Current Medications Medications (Trade) Dose Ordered Sig/Brittani Route PRN Reason Start Time Stop Time Status Last Admin Dose Admin Morphine Sulfate (Ms Contin) 30 mg TID PO 11/16/20 09:00 11/17/20 08:07 Justifications for Admission Other Justification GALI ROMERO MD Nov 17, 2020 09:08
--- NOTE | 2020-11-17 09:22 | CONS ---
DATE OF CONSULTATION: 11/17/2020 ATTENDING PHYSICIAN: Aryan Bobo MD REASON FOR CONSULTATION: The patient was seen at the request of Dr. Bobo for rehab evaluation about his right hip pain. HISTORY OF PRESENT ILLNESS: This is a 55-year-old male admitted on 11/14/2020 with right hip pain. He sustained fracture of right hip, had open reduction and internal fixation, also had a traumatic brain injury at that time. He apparently fell while trying to get up from his recliner and had increased right hip pain. The patient admits pain in his groin. He was unable to go to dialysis on 11/14/2020 secondary to the hip pain, so he was admitted to the hospital. He has been getting MS Contin. The patient is being followed by Nephrology for continued hemodialysis. PAST MEDICAL HISTORY: Includes end-stage renal disease, chronic pain, probable narcotic dependence, polypharmacy, hyperlipidemia, hypertension, angina, congestive heart failure, volume overload, arthritis, neuropathy, gastroesophageal reflux disease, diabetes. ALLERGIES: KNOWN ALLERGIC TO HYDROMORPHONE. FAMILY HISTORY: Diabetes. SOCIAL HISTORY: He is retired. He does not smoke, drink or take any street drugs. PHYSICAL EXAMINATION: The patient on physical examination today revealed a middle-aged male. He is obese, slightly decreased acuity of hearing. The patient is protecting his both hips. He had no tenderness to palpation over right trochanteric bursa, tenderness to palpation over right sacroiliac joint area, difficult to perform straight leg raising test. He seems to have good muscle strength in all 4 extremities. Deep tendon reflexes are decreased at both knees, absent at both ankles. Sensory examination is incomplete. He can roll to his left side. ASSESSMENT: A middle-aged male with previous right hip open reduction and internal fixation and nailing with mild degenerative changes and also degenerative disk disease changes in his lumbar vertebrae, mainly at L5-S1. No clinical evidence of lumbar radiculopathy. He is protecting his right hip to a significant degree. He also presents with peripheral neuropathy, most probably from his diabetes mellitus. The patient with end-stage renal disease, on hemodialysis, also history of hypertension, hyperlipidemia, angina, congestive heart failure, gastroesophageal reflux disease. RECOMMENDATION: To proceed with injecting painful right sacroiliac joint area and also ask Radiology to inject his right hip joint under fluoroscopy to ask physical therapy and occupational therapy to get him up. Dr. Bobo appreciate asking me to participate in the care of this interesting patient. I will be glad to see him for followup with you on as needed basis. MARCY REID MD DR: ANGELINE/kareem JOB#: [id number] / [id number]
--- NOTE | 2020-11-17 09:43 | NUR ---
SW following. Discussed with RN, pt from home with , room air, renal diet. Pt does dialysis MWF at [facility] (ph: [phone]). SW consult for wanting rehab, however no PT/OT or COVID swab was ordered. RN ordering and obtaining today. SW will continue to follow.
--- NOTE | 2020-11-17 10:56 | PDOC ---
DATE OF SERVICE DATE: 11/17/20 TIME: 10:56 SUBJECTIVE ROS Seen on dialysis OBJECTIVE Vital Signs Vital Signs Date Time Temp Pulse Resp B/P (MAP) Pulse Ox O2 Delivery O2 Flow Rate FiO2 11/17/20 08:08 68 177/80 11/17/20 08:07 Room Air 11/17/20 07:00 98.7 16 93 98.7 I & 0 Intake and Output 11/17/20 07:00 Intake Total 1000 ml Balance 1000 ml Intake Oral 1000 ml # Voids 2 PHYSICAL EXAM Physical Exam GENERAL: NAD HEENT: OM moist NECK: supple CARDIOVASCULAR: S1, S2. LUNGS: CTA , Non labored ABDOMEN: Soft, obese , : No Hale. EXTREMITIES: no edema NEURO- Grossly normal DERM No Rash : DIAGNOSIS/ASSESSMENT Assessment & Plan ESRD:On HD MWF(per Dr. Iglesias's note ) , previously he was on TTS schedule Seen on dialysis, tolerating well, continue as ordered, ana Meraz Intractable right hip pain Chronic pain Diabetes, II--insulin dependent with hyperglycemia CAD s/p CABG. Cath 2019 with patent grafts HTN - will cont meds BP disorder - on depakote Seizures - on depakote Acute on chronic diastolic CHF; Echo 07/19 with preserved LV systolic function - will diurese, still makes some urine, likely gained weight 2/2 starting PD, will need UF COMMENT/RELEVANT DATA Meds Current Medications Medications (Trade) Dose Ordered Sig/Brittani Start Time Stop Time Status Last Admin Dose Admin Amlodipine Besylate (Norvasc) 10 mg DAILY 11/15/20 11:00 11/17/20 08:07 10 MG Aspirin (Aspirin Chewable) 81 mg DAILY 11/15/20 11:00 11/17/20 08:06 81 MG Atorvastatin Calcium (Lipitor) 40 mg QHS 11/15/20 21:00 11/16/20 21:31 40 MG Bupivacaine HCl (Sensorcaine-Mpf 0.25%) 10 ml 1X ONCE 11/17/20 09:00 11/17/20 09:13 DC Carvedilol (Coreg) 25 mg BIDWMEALS 11/15/20 17:00 11/17/20 08:08 25 MG Citalopram Hydrobromide (CeleXA) 40 mg HS 11/15/20 21:00 11/16/20 21:31 40 MG Dextrose (Dextrose 50%-Water Syringe) 12.5 gm PRN Q15MIN PRN 11/14/20 16:30 Divalproex Sodium (Depakote) 1,000 mg BID 11/15/20 11:00 11/17/20 08:06 1,000 MG Docusate Sodium (Colace) 100 mg DAILY 11/15/20 11:00 11/17/20 08:07 100 MG Fentanyl Citrate (Fentanyl 2ml Vial) 50 mcg PRN Q4HRS PRN 11/17/20 09:45 Gabapentin (Neurontin) 300 mg QHS 11/15/20 21:00 11/16/20 21:31 300 MG Ibuprofen (Motrin) 800 mg TIDAC 11/17/20 11:30 Influenza Virus Vaccine Quadrival (Fluzone Quad Syringe) 0.5 ml ONCE ONCE 11/15/20 09:00 11/15/20 09:01 DC Info (CONTRAST GIVEN -- Rx MONITORING) 1 each PRN DAILY PRN 11/14/20 14:30 11/16/20 14:29 DC Info (PHARMACY MONITORING -- do not chart) 1 each PRN DAILY PRN 11/17/20 08:30 UNV Insulin Human Lispro (HumaLOG) 0-5 UNITS TIDWMEALS 11/14/20 17:00 11/16/20 17:16 2 UNITS Iohexol (Omnipaque 300 Mg/ml) 75 ml 1X ONCE 11/14/20 14:30 11/14/20 14:31 DC Lisinopril (Prinivil) 20 mg DAILY 11/15/20 11:00 11/17/20 08:08 20 MG Lubiprostone (Amitiza) 24 mcg DAILY 11/15/20 11:00 11/17/20 08:07 24 MCG Methylprednisolone Acetate (DEPO-Medrol 40MG VIAL) 40 mg 1X ONCE 11/17/20 09:00 11/17/20 09:13 DC Morphine Sulfate (Morphine Sulfate) 4 mg PRN Q2HR PRN 11/15/20 09:45 11/17/20 08:58 DC 11/16/20 11:47 4 MG Morphine Sulfate (Ms Contin) 30 mg TID 11/16/20 09:00 11/17/20 08:07 30 MG Ondansetron HCl (Zofran Odt) 4 mg PRN Q8HRS PRN 11/15/20 10:00 Ondansetron HCl (Zofran) 4 mg PRN Q8HRS PRN 11/14/20 16:30 11/15/20 16:29 DC Oxycodone/ Acetaminophen (Percocet 10/325) 1 tab QIDPRN PRN 11/15/20 09:30 11/17/20 03:48 1 TAB Pantoprazole Sodium (Protonix) 40 mg DAILYAC 11/16/20 07:30 11/17/20 08:07 40 MG Ranolazine (Ranexa) 500 mg BID 11/15/20 11:00 11/17/20 08:07 500 MG Sevelamer Carbonate (Renvela) 800 mg TIDWMEALS 11/15/20 12:00 11/17/20 08:07 800 MG Sodium Chloride 1,000 ml @ 400 mls/hr Q2H30M PRN 11/17/20 08:30 11/17/20 20:29 Vitamin B Complex/ Vitamin C (Gissel-Irvin) 1 tab DAILY 11/15/20 11:00 11/17/20 08:07 1 TAB Lab Laboratory Tests Test 11/16/20 11:05 11/16/20 17:00 11/16/20 20:38 11/17/20 06:54 Glucose (Fingerstick) 137 mg/dL (70-99) 193 mg/dL (70-99) 70 mg/dL (70-99) 124 mg/dL (70-99) Results All relevant outside records, renal labs, imaging studies, telemetry/EKG's were reviewed. Justicifation of Admission Dx: Justifications for Admission: Justification of Admission Dx: Yes Chronic Renal Failure: Hypertension Altered Mental Status: Altered Mental Status JEAN PAUL CESPEDES MD Nov 17, 2020 10:56
[2020-11-17] MEDS: IBUPROFEN 400 MG TABLET. PO SCH ×2 (11:30→16:30)
[2020-11-17] MEDS ORDERED: methylPREDNISolone ACETATE 80 MG/ML VIAL. INJ ONE (13:00)
[2020-11-17] MEDS ORDERED: BUPIVACAINE MPF 0.5% 10 ML VIAL. IJ ONE (13:00)
[2020-11-17] MEDS ORDERED: LIDOCAINE WITH 8.4% SOD BICARB 3 ML DISP.SYRIN. INJ ONE (13:00)
[2020-11-17] MEDS ORDERED: BUPIVACAINE MPF 0.5% 30 ML VIAL. INJ ONE (13:00)
[2020-11-17] MEDS ORDERED: IOHEXOL 300 MG/ML 50 ML VIAL. IJ ONE (13:15)
[2020-11-17] MEDS ORDERED: IOHEXOL 300 MG/ML 50 ML VIAL. ONE (13:16)
[2020-11-17] MEDS ORDERED: CONTRAST GIVEN. MC PRN (13:30)
[2020-11-17] MEDS ORDERED: methylPREDNISolone ACETATE 40 MG/ML VIAL. INJ ONE (14:00)
--- NOTE | 2020-11-17 14:46 | RAD ---
EXAM: Fluoroscopic guided therapeutic right hip injection. HISTORY: Pain. COMPARISON: 11/14/2020. FINDINGS: The risks of the procedure discussed with the patient and written and verbal consent was ob tained. The patient was placed in a supine position on the fluoroscopy table and a site overlying the left hip joint space was selected. This location dislocation was sterilely prepped, draped and infil trated with 1 percent lidocaine. The deeper soft tissues were also infiltrated with 1 percent lidocai ne. The patient experienced extreme discomfort with lidocaine injection and repetitive motion preclud ed advancement of a needle into the joint space. The patient refused to proceed with the therapeutic injection portion of the exam and the exam was canceled. The total fluoroscopy time was 6 seconds. A single fluoroscopic image was obtained. IMPRESSION: Deferred therapeutic right hip injection due to patient discomfort and inability to contr ol body motion. This procedure can be performed when clinically feasible. Electronically signed by: Elaine Reynolds MD (11/17/2020 2:43 PM) [id number]
--- NOTE | 2020-11-17 14:47 | NUR ---
refusing assessment of wounds Addendum: 11/17/20 at 1448 by BOUCHRA SALDANA RN RN Amended: Links added.
[2020-11-17 15:00] VITALS: BP 139/63
--- NOTE | 2020-11-17 15:10 | NUR ---
Patient refusing to move to p500 bed.
--- NOTE | 2020-11-17 15:37 | NUR ---
Patient refusing to take scheduled MS contin.
--- NOTE | 2020-11-17 17:09 | NUR ---
Wound Care Wound care assessment for multiple wounds. Pt has scabs to Left thigh and right elbow and buttocks are healed. Wound care will sign off at this time. Please reconsult of new wounds develop.
[2020-11-17 19:00] VITALS: BP 126/58
[2020-11-17] MEDS: CITALOPRAM 20 MG TABLET. PO SCH (20:13)
[2020-11-17] MEDS: GABAPENTIN 300 MG CAPSULE. PO SCH (20:13)
[2020-11-17] MEDS: ATORVASTATIN CALCIUM 40 MG TABLET. PO SCH (20:14)
[2020-11-17 22:42] VITALS: BP 132/62
[2020-11-18 02:48] VITALS: BP 146/67
[2020-11-18 07:00] VITALS: BP 132/69
--- NOTE | 2020-11-18 07:50 | PDOC ---
[facility] [facility] PROGRESS NOTE Date of Service DOS: DATE: 11/18/20 TIME: 07:50 Chief Complaint Chief Complaint A/P: Intractable right hip pain Chronic pain ESRD HD Falls - will have PT to assess gait, balance. Diabetes, II--insulin dependent with hyperglycemia - will cont sliding scale. reduce glargine with hypoglycemia to 18u, 6u lispro with meals and high sliding scale and 10 u IV insulin now CAD s/p CABG. Cath 2019 with patent grafts HTN - will cont meds BP disorder - on depakote Seizures - on depakote Acute on chronic diastolic CHF; Echo 07/19 with preserved LV systolic function - will diurese, still makes some urine, likely gained weight 2/2 starting PD, will need UF Hyperlipidemia - cont statin ESRD on HD - transitioned back to HD, will consult nephrology Weight gain - dry weight previously 110kg, now 111kg will consult nephrology for further recs. Smoker - counseled on cessation Hyponatremia - due to hyperglycemia, will monitor Anemia - of chronic renal insufficiency Consult Dr. Orellana for pain management and hip pain Appreciate nephrology consult for hemodialysis Change IV morphine to 4 mg every 2 hours as needed and 4 mg every 2 hours for breakthrough Restart home morphine long-acting Heparin for DVT prophylaxis Protonix GI prophylaxis ADA diet Full code Discussed with RN and SW Disposition inpatient management as above Surrogate decision maker is the History of Present Illness History of Present Illness Mr Bedolla 54 yo M w/ PMHx smoker, CAD s/p CABG x4 in 2017, ischemic CM, ESRD on HD, BP disorder, seizure disorder, DM2, HTN, smoker who presents to ED c/o right hip pain chest pain that he describes as sharp and nonradiating for the past 24 hours prior to admit. Pain is constant 10/10. Pain worsened after a fall from his recliner day of admission. He shifted his weight and then had a sharp pain in his right groin. He suffered a hip fracture in 2019. He has got hardware. He also had a traumatic brain injury at that time. Was seen for chest pain 1 month ago and treated for bronchitis, patient states he felt like he had gotten better. He denies any recent fevers, coughing, vomiting, diarrhea Denies fever, vomiting, diarrhea, dizziness, syncope, headache, vision changes, focal weakness, numbness or tingling and no recent travel or sick contacts. He was on hospice until December 2019 and now relates he is awaiting renal transplant. UDS negative despite reports of opioid use. EKG Sinus rhythm, left axis deviation, heart rate 73, no ST elevations or depressions, no ectopy. Chest radiograph with bibasilar atelectasis. Labs significant for WBC 6.2, Hb 10.1, platelets 195, NA 130, K4, BUN 37, CR 4.8, glucose 734, calcium 8.4, BNP greater than 35,000, troponin II 0.859, albumin 3.1. He is s/p PD cath placement 04/04/2020 with no signs of peritonitis and had removal in May and then transitioned back to HD thereafter. Left heart catheterization 04/29/2020, showed severe triple-vessel disease, 4 patent bypass grafts, diffuse > 70% triple vessel disease with LAD 70-80% occlusion. EF 40-45% on ventriculogram at the time. Echocardiogram 07/18/2020 showed ejection fraction 55-60% Admitted for further care. 11/15: No acute events overnight. Patient continues to complain of pain in his right hip. He states that he needs IV pain control. He does experience chronic pain at home and has had a since a fall about 2 years ago. Patient's chart, labs, images were reviewed and discussed with RN 11/16: No acute events overnight. Patient remains afebrile. Patient continues to have chronic right hip pain. Lying in bed and holding onto his right hip area. He did require a total of 60 mg IV morphine. Converted his dose to p.o. morphine and requires an extra 45 mg. Increased his MS Contin from 15 mg 3 times daily to 30 mg 3 times daily. 11/17: No overnight events. Still confused, c/o hip pain. Unable to lay still for fluoro injection. Tolerated dialysis well. chart and labs reviewed with nursing staff Still with severe right groin pain. No CP or SOB. Cannot move his right leg without significant pain. His has requested physical therapy rehab, He is amenable to rehab now. Vitals/I&O Vitals/I&O: Vital Signs Date Time Temp Pulse Resp B/P (MAP) Pulse Ox O2 Delivery O2 Flow Rate FiO2 11/18/20 07:00 98.1 68 18 132/69 (90) 92 Room Air 98.1 11/17/20 19:00 94.0 I & O 11/17/20 11/17/20 11/18/20 15:00 23:00 07:00 Intake Total 320 ml 980 ml 300 ml Balance 320 ml 980 ml 300 ml Physical Exam Lungs: Clear Labs Labs: Laboratory Tests Test 11/17/20 16:41 11/17/20 18:49 11/18/20 07:13 Glucose (Fingerstick) 191 mg/dL (70-99) 217 mg/dL (70-99) 102 mg/dL (70-99) Assessment and Plan Assessmemt and Plan Problems Medical Problems: (1) Hip pain, right Status: Acute (2) Intractable pain Status: Acute Comment Review of Relevant I have reviewed the following items nelda (where applicable) has been applied. Medications: Current Medications Medications (Trade) Dose Ordered Sig/Brittani Route PRN Reason Start Time Stop Time Status Last Admin Dose Admin Iohexol (Omnipaque 300 Mg/ml) 50 ml 1X ONCE IJ 11/17/20 13:15 11/17/20 13:16 DC 11/17/20 14:20 Justifications for Admission Other Justification GALI ROMERO MD Nov 18, 2020 07:50
[2020-11-18] MEDS: INSULIN LISPRO 300 UNITS/3 ML VIAL. SQ SCH ×3 (08:00→16:52)
[2020-11-18] MEDS: DIVALPROEX DELAYED RELEASE 500 MG TABLET.DR. PO SCH ×2 (08:10→21:19)
[2020-11-18] MEDS: RANOLAZINE 500 MG TAB.ER.12H PO SCH ×2 (08:10→21:19)
[2020-11-18] MEDS: LUBIPROSTONE 24 MCG CAPSULE PO SCH (08:10)
[2020-11-18] MEDS: MORPHINE ER 30 MG TABLET.ER PO SCH ×4 (08:11→21:20)
[2020-11-18] MEDS: PANTOPRAZOLE 40 MG TABLET.DR. PO SCH (08:11)
[2020-11-18] MEDS: IBUPROFEN 400 MG TABLET. PO SCH ×3 (08:11→17:16)
[2020-11-18] MEDS: CARVEDILOL 12.5 MG TABLET. PO SCH ×2 (08:11→17:16)
[2020-11-18] MEDS: FOLIC/VIT B COMP W-C (RENAL) TABLET. PO SCH (08:11)
[2020-11-18] MEDS: SEVELAMER CARBONATE 800 MG TABLET. PO SCH ×3 (08:11→17:16)
[2020-11-18] MEDS: ASPIRIN CHEWABLE 81 MG TABLET. PO SCH (08:11)
[2020-11-18] MEDS: DOCUSATE SODIUM 100 MG CAPSULE. PO SCH (08:12)
[2020-11-18] MEDS: LISINOPRIL 20 MG TABLET PO SCH (08:12)
--- NOTE | 2020-11-18 09:25 | PDOC ---
PROGRESS NOTES Date of Service DATE: 11/18/20 TIME: 09:22 Subjective Subjective He admits continued pain. Objective Objective Vital Signs Date Time Temp Pulse Resp B/P (MAP) Pulse Ox O2 Delivery O2 Flow Rate FiO2 11/18/20 08:12 68 132/69 11/18/20 08:11 Room Air 11/18/20 07:00 98.1 18 92 98.1 11/17/20 19:00 94.0 Intake and Output 11/18/20 07:00 Intake Total 1600 ml Balance 1600 ml Intake Oral 1600 ml # Voids 1 Physical Exam Physical Exam He is sitting up at edge of bed and he is awake and he refuses for me to examine him. He could not tolerate right hip joint injection by radiology yesterday. Assessment Assessment Problems Medical Problems: (1) Hip pain, right Status: Acute (2) Intractable pain Status: Acute Plan Plan of Care To SNF or home with home health follow up when medically stable. Comment Review of Relevant I have reviewed the following items nelda (where applicable) has been applied. Labs Laboratory Tests Test 11/16/20 11:05 11/16/20 17:00 11/16/20 20:38 11/17/20 06:54 Glucose (Fingerstick) 137 mg/dL (70-99) 193 mg/dL (70-99) 70 mg/dL (70-99) 124 mg/dL (70-99) Test 11/17/20 16:41 11/17/20 18:49 11/18/20 07:13 Glucose (Fingerstick) 191 mg/dL (70-99) 217 mg/dL (70-99) 102 mg/dL (70-99) Laboratory Tests Test 11/17/20 16:41 11/17/20 18:49 11/18/20 07:13 Glucose (Fingerstick) 191 mg/dL (70-99) 217 mg/dL (70-99) 102 mg/dL (70-99) Medications Current Medications Morphine Sulfate (Morphine Sulfate) 10 mg 1X ONCE IM Last administered on 11/14/20at 13:27; Start 11/14/20 at 13:45; Stop 11/14/20 at 13:46; Status DC Morphine Sulfate (Morphine Sulfate) 10 mg 1X ONCE IV Last administered on 11/14/20at 15:52; Start 11/14/20 at 14:15; Stop 11/14/20 at 14:21; Status DC Iohexol (Omnipaque 300 Mg/ml) 75 ml 1X ONCE IV ; Start 11/14/20 at 14:30; Stop 11/14/20 at 14:31; Status DC Info (CONTRAST GIVEN -- Rx MONITORING) 1 each PRN DAILY PRN MC SEE COMMENTS; Start 11/14/20 at 14:30; Stop 11/16/20 at 14:29; Status DC Ondansetron HCl (Zofran) 4 mg PRN Q8HRS PRN IV NAUSEA/VOMITING; Start 11/14/20 at 16:30; Stop 11/15/20 at 16:29; Status DC Morphine Sulfate (Morphine Sulfate) 10 mg PRN Q2HR PRN IV PAIN Last administered on 11/15/20at 04:23; Start 11/14/20 at 16:30; Stop 11/15/20 at 09:45; Status DC Insulin Human Lispro (HumaLOG) 0-5 UNITS TIDWMEALS SQ Last administered on 11/16/20at 17:16; Start 11/14/20 at 17:00 Dextrose (Dextrose 50%-Water Syringe) 12.5 gm PRN Q15MIN PRN IV SEE COMMENTS; Start 11/14/20 at 16:30 Influenza Virus Vaccine Quadrival (Fluzone Quad Syringe) 0.5 ml ONCE ONCE VAX IM ; Start 11/15/20 at 09:00; Stop 11/15/20 at 09:01; Status DC Amlodipine Besylate (Norvasc) 10 mg DAILY PO Last administered on 11/18/20at 08:12; Start 11/15/20 at 11:00 Aspirin (Aspirin Chewable) 81 mg DAILY PO Last administered on 11/18/20at 08:11; Start 11/15/20 at 11:00 Atorvastatin Calcium (Lipitor) 40 mg QHS PO Last administered on 11/17/20at 20:14; Start 11/15/20 at 21:00 Carvedilol (Coreg) 25 mg BIDWMEALS PO Last administered on 11/18/20at 08:11; Start 11/15/20 at 17:00 Divalproex Sodium (Depakote) 1,000 mg BID PO Last administered on 11/18/20at 08:10; Start 11/15/20 at 11:00 Docusate Sodium (Colace) 100 mg DAILY PO Last administered on 11/18/20at 08:12; Start 11/15/20 at 11:00 Vitamin B Complex/ Vitamin C (Gissel-Irvin) 1 tab DAILY PO Last administered on 11/18/20at 08:11; Start 11/15/20 at 11:00 Gabapentin (Neurontin) 300 mg QHS PO Last administered on 11/17/20at 20:13; Start 11/15/20 at 21:00 Lisinopril (Prinivil) 20 mg DAILY PO Last administered on 11/18/20at 08:12; Start 11/15/20 at 11:00 Lubiprostone (Amitiza) 24 mcg DAILY PO Last administered on 11/18/20at 08:10; Start 11/15/20 at 11:00 Morphine Sulfate (Ms Contin) 15 mg TID PO Last administered on 11/15/20at 20:23; Start 11/15/20 at 14:00; Stop 11/16/20 at 07:34; Status DC Oxycodone/ Acetaminophen (Percocet 10/325) 1 tab QIDPRN PRN PO PAIN Last administered on 11/17/20at 03:48; Start 11/15/20 at 09:30 Ranolazine (Ranexa) 500 mg BID PO Last administered on 11/18/20at 08:10; Start 11/15/20 at 11:00 Sevelamer Carbonate (Renvela) 800 mg TIDWMEALS PO Last administered on 11/18/20at 08:11; Start 11/15/20 at 12:00 Citalopram Hydrobromide (CeleXA) 40 mg HS PO Last administered on 11/17/20at 20:13; Start 11/15/20 at 21:00 Ondansetron HCl (Zofran Odt) 4 mg PRN Q8HRS PRN PO NAUSEA/VOMITING; Start 10/31 04/20 at 10:00 Pantoprazole Sodium (Protonix) 40 mg DAILYAC PO Last administered on 11/18/20at 08:11; Start 11/16/20 at 07:30 Morphine Sulfate (Morphine Sulfate) 4 mg Q2HR PRN IV PAIN; Start 11/15/20 at 10:00; Status UNV Morphine Sulfate (Morphine Sulfate) 4 mg PRN Q2HR PRN IV PAIN Last administered on 11/16/20at 11:47; Start 11/15/20 at 09:45; Stop 11/17/20 at 08:58; Status DC Info (PHARMACY MONITORING -- do not chart) 1 each PRN DAILY PRN MC SEE COMMENTS; Start 11/15/20 at 17:15; Stop 11/17/20 at 13:11; Status DC Morphine Sulfate (Ms Contin) 30 mg TID PO Last administered on 11/18/20at 08:11; Start 11/16/20 at 09:00 Sodium Chloride 1,000 ml @ 1,000 mls/hr Q1H PRN IV hypotension; Start 11/17/20 at 08:30; Stop 11/17/20 at 14:29; Status DC Sodium Chloride 1,000 ml @ 400 mls/hr Q2H30M PRN IV PATENCY; Start 11/17/20 at 08:30; Stop 11/17/20 at 20:29; Status DC Info (PHARMACY MONITORING -- do not chart) 1 each PRN DAILY PRN MC SEE COMMENTS; Start 11/17/20 at 08:30 Info (PHARMACY MONITORING -- do not chart) 1 each PRN DAILY PRN MC SEE COMMENTS; Start 11/17/20 at 08:30; Status UNV Methylprednisolone Acetate (DEPO-Medrol 40MG VIAL) 40 mg 1X ONCE IM ; Start 11/17/20 at 09:00; Stop 11/17/20 at 09:13; Status DC Bupivacaine HCl (Sensorcaine-Mpf 0.25%) 10 ml 1X ONCE IJ ; Start 11/17/20 at 09:00; Stop 11/17/20 at 09:13; Status DC Ibuprofen (Motrin) 800 mg TIDAC PO Last administered on 11/18/20at 08:11; Start 11/17/20 at 11:30 Fentanyl Citrate (Fentanyl 2ml Vial) 50 mcg PRN Q4HRS PRN IVP MODERATE TO SEVERE PAIN; Start 11/17/20 at 09:45 Methylprednisolone Acetate (DEPO-Medrol 80MG VIAL) 80 mg 1X ONCE INJ ; Start 11/17/20 at 13:00; Stop 11/17/20 at 13:11; Status DC Lidocaine HCl (Buffered Lidocaine 1%) 6 ml 1X ONCE INJ ; Start 11/17/20 at 13:00; Stop 11/17/20 at 13:11; Status DC Bupivacaine HCl (Sensorcaine Mpf 0.5%) 30 ml 1X ONCE INJ ; Start 11/17/20 at 13:00; Stop 11/17/20 at 13:11; Status DC Bupivacaine HCl (Sensorcaine Mpf 0.5%) 20 ml 1X ONCE IJ ; Start 11/17/20 at 13:00; Stop 11/17/20 at 13:01; Status Cancel Iohexol (Omnipaque 300 Mg/ml) 50 ml 1X ONCE IJ Last administered on 11/17/20at 14:20; Start 11/17/20 at 13:15; Stop 11/17/20 at 13:16; Status DC Info (CONTRAST GIVEN -- Rx MONITORING) 1 each PRN DAILY PRN MC SEE COMMENTS; Start 11/17/20 at 13:30; Stop 11/19/20 at 13:29 Iohexol (Omnipaque 300 Mg/ml) 50 ml STK-MED ONCE .ROUTE ; Start 11/17/20 at 13:16; Stop 11/17/20 at 13:16; Status DC Bupivacaine HCl (Sensorcaine-Mpf 0.25%) 10 ml 1X ONCE IJ ; Start 11/17/20 at 13:45; Stop 11/17/20 at 13:46; Status Cancel Methylprednisolone Acetate (DEPO-Medrol 40MG VIAL) 40 mg 1X ONCE IM ; Start 11/17/20 at 14:00; Stop 11/17/20 at 13:46; Status DC Methylprednisolone Acetate (DEPO-Medrol 40MG VIAL) 40 mg 1X ONCE INJ ; Start 11/17/20 at 14:00; Stop 11/17/20 at 14:01; Status DC Active Scripts Active Percocet 5-325 Mg Tablet (Oxycodone/Acetaminophen) 1 Each Tablet 1 Tab PO PRN Q6HRS PRN Tylenol (Acetaminophen) 325 Mg Tablet 650 Mg PO PRN Q6HRS PRN 14 Days Carvedilol (Carvedilol) 12.5 Mg Tablet 25 Mg PO BIDWMEALS 30 Days Hydralazine Hcl 50 Mg Tablet 50 Mg PO BID 30 Days Atorvastatin Calcium 40 Mg Tablet 40 Mg PO QHS 30 Days Gabapentin (Gabapentin) 100 Mg Capsule 100 Mg PO TID 30 Days [Diclofenac Sodium] 100 GM Gel..gram. 1 Christo TP BID 30 Days Reported Morphine Sulfate Er (Morphine Sulfate) 15 Mg Tablet.er 1 Tab PO TID Percocet 10-325 Mg Tablet (Oxycodone/Acetaminophen) 1 Each Tablet 1 Tab PO QIDPRN PRN MDD 4 Tablet(s) Tresiba (Insulin Degludec) 100 Unit/1 Ml Vial 42 Unit SQ HS Ranexa (Ranolazine) 500 Mg Tab.er.12h 500 Mg PO BID Renal-Irvin Tablet (Folic Acid/Vit Bcomp,C) 0.8 Mg Tablet 0.8 Mg PO DAILY Novolog (Insulin Aspart) 100 Unit/1 Ml Vial 0 SQ PRN TID PRN Lisinopril 20 Mg Tablet 20 Mg PO DAILY Zofran (Ondansetron Hcl) 4 Mg Tablet 1 Tab PO PRN Q4HRS PRN NITROGLYCERIN SubLingual (Nitroglycerin) 0.4 Mg Tab.subl 0.4 Mg SL PRN Q5MIN PRN Citalopram Hbr (Citalopram Hydrobromide) 40 Mg Tablet 40 Mg PO HS Protonix (Pantoprazole Sodium) 20 Mg Tablet.dr 40 Mg PO DAILY Docusate Sodium 100 Mg Capsule 1 Cap PO DAILY Divalproex Sodium 500 Mg Tablet.dr 2 Tab PO BID Aspirin 81 Mg Tab.chew 1 Tab PO DAILY Amitiza (Lubiprostone) 24 Mcg Capsule 1 Cap PO DAILY Norvasc (Amlodipine Besylate) 10 Mg Tablet 10 Mg PO DAILY Renvela (Sevelamer Carbonate) 800 Mg Tablet 800 Mg PO TIDWMEALS Vitals/I & O Vital Sign - Last 24 Hours 11/17/20 11/17/20 11/17/20 11/17/20 12:07 15:00 19:00 20:00 Temp 98.6 97.8 98.6 97.8 Pulse 77 70 Resp 16 17 B/P (MAP) 139/63 (88) 126/58 (80) Pulse Ox 95 O2 Delivery Room Air Room Air Room Air Room Air O2 Flow Rate 94.0 11/17/20 11/17/20 11/17/20 11/18/20 20:13 20:14 22:42 00:26 Temp 97.8 97.8 Pulse 72 74 Resp 16 17 16 B/P (MAP) 134/62 132/62 (85) Pulse Ox 95 O2 Delivery Room Air Room Air Room Air 11/18/20 11/18/20 11/18/20 11/18/20 02:48 07:00 07:30 08:10 Temp 97.8 98.1 97.8 98.1 Pulse 73 68 68 Resp 17 18 B/P (MAP) 146/67 (93) 132/69 (90) 132/69 Pulse Ox 94 92 O2 Delivery Room Air Room Air Room Air 11/18/20 11/18/20 11/18/20 11/18/20 08:11 08:11 08:12 08:12 Pulse 68 68 68 B/P (MAP) 132/69 132/69 132/69 O2 Delivery Room Air Intake and Output 11/17/20 11/17/20 11/18/20 15:00 23:00 07:00 Intake Total 320 ml 980 ml 300 ml Balance 320 ml 980 ml 300 ml Justifications for Admission Other Justification MARCY REID MD Nov 18, 2020 09:25
[2020-11-18] MEDS: fentaNYL PF VIAL 100 MCG/2 ML VIAL IVP PRN ×2 (09:28→17:22)
[2020-11-18 11:00] VITALS: BP 100/45
[2020-11-18 11:01] LABS: BASO % 0 % (0-3); EOS # 0.1 x10^3/uL (0.0-0.7); EOS % 2 % (0-3); HEMATOCRIT 31.8 % (39.0-53.0); HEMOGLOBIN 10.5 g/dL (13.0-17.5); LYMPH # 1.5 x10^3/uL (1.0-4.8); LYMPH % 18 % (24-48); MEAN CORPUSCULAR HEMOGLOBIN 32 pg (25-35); MEAN CORPUSCULAR HGB CONC 33 g/dL (31-37); MEAN CORPUSCULAR VOLUME 96 fL (79-100); MONO # 1.2 x10^3/uL (0.0-1.1); MONO % 15 % (0-9); NEUT # 5.5 x10^3/uL (1.8-7.7); NEUT % 65 % (31-73); PLATELET COUNT 211 x10^3/uL (140-400); RED CELL DISTRIBUTION WIDTH 13.2 % (11.5-14.5); WHITE BLOOD COUNT 8.4 x10^3/uL (4.0-11.0)
[2020-11-18 11:22] LABS: ALBUMIN 3.1 g/dL (3.4-5.0); CALCIUM 8.7 mg/dL (8.5-10.1); GFR 8.3; PHOSPHORUS 5.9 mg/dL (2.6-4.7); POTASSIUM 4.3 mmol/L (3.5-5.1)
--- NOTE | 2020-11-18 12:12 | PDOC ---
DATE OF SERVICE DATE: 11/18/20 TIME: 12:10 SUBJECTIVE ROS stable OBJECTIVE Vital Signs Vital Signs Date Time Temp Pulse Resp B/P (MAP) Pulse Ox O2 Delivery O2 Flow Rate FiO2 11/18/20 11:00 98.6 78 18 100/45 (63) 94 Room Air 98.6 11/17/20 19:00 94.0 I & 0 Intake and Output 11/18/20 07:00 Intake Total 1600 ml Balance 1600 ml Intake Oral 1600 ml # Voids 1 PHYSICAL EXAM Physical Exam GENERAL: NAD HEENT: OM moist NECK: supple CARDIOVASCULAR: S1, S2. LUNGS: CTA , Non labored ABDOMEN: Soft, obese , : No Hale. EXTREMITIES: no edema NEURO- Grossly normal DERM No Rash : DIAGNOSIS/ASSESSMENT Assessment & Plan ESRD:On HD MWF(per Dr. Iglesias's note ) , previously he was on TTS schedule . No emergent indication for HD today Intractable right hip pain Chronic pain Diabetes, II--insulin dependent with hyperglycemia CAD s/p CABG. Cath 2019 with patent grafts HTN - will cont meds BP disorder - on depakote Seizures - on depakote Acute on chronic diastolic CHF; Echo 07/19 with preserved LV systolic function - COMMENT/RELEVANT DATA Meds Current Medications Medications (Trade) Dose Ordered Sig/Brittani Start Time Stop Time Status Last Admin Dose Admin Amlodipine Besylate (Norvasc) 10 mg DAILY 11/15/20 11:00 11/18/20 08:12 10 MG Aspirin (Aspirin Chewable) 81 mg DAILY 11/15/20 11:00 11/18/20 08:11 81 MG Atorvastatin Calcium (Lipitor) 40 mg QHS 11/15/20 21:00 11/17/20 20:14 40 MG Bupivacaine HCl (Sensorcaine Mpf 0.5%) 20 ml 1X ONCE 11/17/20 13:00 11/17/20 13:01 Cancel Bupivacaine HCl (Sensorcaine-Mpf 0.25%) 10 ml 1X ONCE 11/17/20 13:45 11/17/20 13:46 Cancel Carvedilol (Coreg) 25 mg BIDWMEALS 11/15/20 17:00 11/18/20 08:11 25 MG Citalopram Hydrobromide (CeleXA) 40 mg HS 11/15/20 21:00 11/17/20 20:13 40 MG Dextrose (Dextrose 50%-Water Syringe) 12.5 gm PRN Q15MIN PRN 11/14/20 16:30 Divalproex Sodium (Depakote) 1,000 mg BID 11/15/20 11:00 11/18/20 08:10 1,000 MG Docusate Sodium (Colace) 100 mg DAILY 11/15/20 11:00 11/18/20 08:12 100 MG Fentanyl Citrate (Fentanyl 2ml Vial) 50 mcg PRN Q4HRS PRN 11/17/20 09:45 11/18/20 09:28 50 MCG Gabapentin (Neurontin) 300 mg QHS 11/15/20 21:00 11/17/20 20:13 300 MG Ibuprofen (Motrin) 800 mg TIDAC 11/17/20 11:30 11/18/20 11:55 800 MG Influenza Virus Vaccine Quadrival (Fluzone Quad [id number] Syringe) 0.5 ml ONCE ONCE 11/15/20 09:00 11/15/20 09:01 DC Info (CONTRAST GIVEN -- Rx MONITORING) 1 each PRN DAILY PRN 11/17/20 13:30 11/19/20 13:29 Info (PHARMACY MONITORING -- do not chart) 1 each PRN DAILY PRN 11/17/20 08:30 UNV Insulin Human Lispro (HumaLOG) 0-5 UNITS TIDWMEALS 11/14/20 17:00 11/16/20 17:16 2 UNITS Iohexol (Omnipaque 300 Mg/ml) 50 ml STK-MED ONCE 11/17/20 13:16 11/17/20 13:16 DC Lidocaine HCl (Buffered Lidocaine 1%) 6 ml 1X ONCE 11/17/20 13:00 11/17/20 13:11 DC Lisinopril (Prinivil) 20 mg DAILY 11/15/20 11:00 11/18/20 08:12 20 MG Lubiprostone (Amitiza) 24 mcg DAILY 11/15/20 11:00 11/18/20 08:10 24 MCG Methylprednisolone Acetate (DEPO-Medrol 40MG VIAL) 40 mg 1X ONCE 11/17/20 14:00 11/17/20 14:01 DC Methylprednisolone Acetate (DEPO-Medrol 80MG VIAL) 80 mg 1X ONCE 11/17/20 13:00 11/17/20 13:11 DC Morphine Sulfate (Morphine Sulfate) 4 mg PRN Q2HR PRN 11/15/20 09:45 11/17/20 08:58 DC 11/16/20 11:47 4 MG Morphine Sulfate (Ms Contin) 30 mg TID 11/16/20 09:00 11/18/20 08:11 30 MG Ondansetron HCl (Zofran Odt) 4 mg PRN Q8HRS PRN 11/15/20 10:00 Ondansetron HCl (Zofran) 4 mg PRN Q8HRS PRN 11/14/20 16:30 11/15/20 16:29 DC Oxycodone/ Acetaminophen (Percocet 10/325) 1 tab QIDPRN PRN 11/15/20 09:30 11/17/20 03:48 1 TAB Pantoprazole Sodium (Protonix) 40 mg DAILYAC 11/16/20 07:30 11/18/20 08:11 40 MG Ranolazine (Ranexa) 500 mg BID 11/15/20 11:00 11/18/20 08:10 500 MG Sevelamer Carbonate (Renvela) 800 mg TIDWMEALS 11/15/20 12:00 11/18/20 11:55 800 MG Sodium Chloride 1,000 ml @ 400 mls/hr Q2H30M PRN 11/17/20 08:30 11/17/20 20:29 DC Vitamin B Complex/ Vitamin C (Gissel-Irvin) 1 tab DAILY 11/15/20 11:00 11/18/20 08:11 1 TAB Lab Laboratory Tests Test 11/17/20 16:41 11/17/20 18:49 11/18/20 07:13 11/18/20 09:43 Glucose (Fingerstick) 191 mg/dL (70-99) 217 mg/dL (70-99) 102 mg/dL (70-99) White Blood Count 8.4 x10^3/uL (4.0-11.0) Red Blood Count 3.30 x10^6/uL (4.30-5.70) Hemoglobin 10.5 g/dL (13.0-17.5) Hematocrit 31.8 % (39.0-53.0) Mean Corpuscular Volume 96 fL (79-100) Mean Corpuscular Hemoglobin 32 pg (25-35) Mean Corpuscular Hemoglobin Concent 33 g/dL (31-37) Red Cell Distribution Width 13.2 % (11.5-14.5) Platelet Count 211 x10^3/uL (140-400) Neutrophils (%) (Auto) 65 % (31-73) Lymphocytes (%) (Auto) 18 % (24-48) Monocytes (%) (Auto) 15 % (0-9) Eosinophils (%) (Auto) 2 % (0-3) Basophils (%) (Auto) 0 % (0-3) Neutrophils # (Auto) 5.5 x10^3/uL (1.8-7.7) Lymphocytes # (Auto) 1.5 x10^3/uL (1.0-4.8) Monocytes # (Auto) 1.2 x10^3/uL (0.0-1.1) Eosinophils # (Auto) 0.1 x10^3/uL (0.0-0.7) Basophils # (Auto) 0.0 x10^3/uL (0.0-0.2) Test 11/18/20 09:53 11/18/20 11:44 Sodium Level 136 mmol/L (136-145) Potassium Level 4.3 mmol/L (3.5-5.1) Chloride Level 97 mmol/L (98-107) Carbon Dioxide Level 27 mmol/L (21-32) Anion Gap 12 (6-14) Blood Urea Nitrogen 48 mg/dL (8-26) Creatinine 7.0 mg/dL (0.7-1.3) Estimated GFR (Cockcroft-Gault) 8.3 Glucose Level 143 mg/dL (70-99) Calcium Level 8.7 mg/dL (8.5-10.1) Phosphorus Level 5.9 mg/dL (2.6-4.7) Albumin 3.1 g/dL (3.4-5.0) Glucose (Fingerstick) 182 mg/dL (70-99) Results All relevant outside records, renal labs, imaging studies, telemetry/EKG's were reviewed. Justicifation of Admission Dx: Justifications for Admission: Justification of Admission Dx: Yes Chronic Renal Failure: Hypertension Altered Mental Status: Altered Mental Status JEAN PAUL CESPEDES MD Nov 18, 2020 12:12
--- NOTE | 2020-11-18 13:40 | NUR ---
Covid swab was collected and walked down to lab.
--- NOTE | 2020-11-18 14:51 | NUR ---
1400 MS Contin held due to pt's drowsiness. Pt easily arousable, too drowsy to hold a conversation. Addendum: 11/18/20 at 1532 by QUITA HECTOR RN Pt. now awake and alert, asking for pain meds. MS Contin given.
[2020-11-18 15:13] VITALS: BP 122/81
[2020-11-18 19:00] VITALS: BP 126/67
[2020-11-18] MEDS: CITALOPRAM 20 MG TABLET. PO SCH (21:20)
[2020-11-18] MEDS: GABAPENTIN 300 MG CAPSULE. PO SCH (21:20)
[2020-11-18] MEDS: ATORVASTATIN CALCIUM 40 MG TABLET. PO SCH (21:20)
[2020-11-18 22:52] VITALS: BP 131/62
[2020-11-19 03:00] VITALS: BP 106/52
[2020-11-19 07:00] LABS: CREATININE 8.4 mg/dL (0.7-1.3); GFR 6.7; POTASSIUM 4.5 mmol/L (3.5-5.1)
[2020-11-19 07:10] VITALS: BP 105/56
[2020-11-19 07:21] LABS: CALCIUM 8.1 mg/dL (8.5-10.1)
[2020-11-19] MEDS: INSULIN LISPRO 300 UNITS/3 ML VIAL. SQ SCH ×2 (07:30→11:14)
--- NOTE | 2020-11-19 07:52 | PDOC ---
[employer] PROGRESS NOTE Date of Service DOS: DATE: 11/19/20 TIME: 07:52 Chief Complaint Chief Complaint A/P: Intractable right hip pain Chronic pain ESRD HD Falls - will have PT to assess gait, balance. Diabetes, II--insulin dependent with hyperglycemia - will cont sliding scale. reduce glargine with hypoglycemia to 18u, 6u lispro with meals and high sliding scale and 10 u IV insulin Hyponatremia - likely hypervolemic given CHF CAD s/p CABG. Cath 2019 with patent grafts HTN - will cont meds BP disorder - on depakote Seizures - on depakote Acute on chronic diastolic CHF; Echo 07/19 with preserved LV systolic function - will diurese, still makes some urine, likely gained weight 2/2 starting PD, will need UF Hyperlipidemia - cont statin ESRD on HD - transitioned back to HD, will consult nephrology Weight gain - dry weight previously 110kg, now 111kg will consult nephrology for further recs. Smoker - counseled on cessation Hyponatremia - due to hyperglycemia, will monitor Anemia - of chronic renal insufficiency Consult Dr. Orellana for pain management and hip pain Appreciate nephrology consult for hemodialysis Change IV morphine to 4 mg every 2 hours as needed and 4 mg every 2 hours for breakthrough Restart home morphine long-acting Heparin for DVT prophylaxis Protonix GI prophylaxis ADA diet Full code Discussed with RN and SW Disposition inpatient management as above Surrogate decision maker is the History of Present Illness History of Present Illness Mr Bedolla 54 yo M w/ PMHx smoker, CAD s/p CABG x4 in 2017, ischemic CM, ESRD on HD, BP disorder, seizure disorder, DM2, HTN, smoker who presents to ED c/o right hip pain chest pain that he describes as sharp and nonradiating for the past 24 hours prior to admit. Pain is constant 10/10. Pain worsened after a fall from his recliner day of admission. He shifted his weight and then had a sharp pain in his right groin. He suffered a hip fracture in 2019. He has got hardware. He also had a traumatic brain injury at that time. Was seen for chest pain 1 month ago and treated for bronchitis, patient states he felt like he had gotten better. He denies any recent fevers, coughing, vomiting, diarrhea Denies fever, vomiting, diarrhea, dizziness, syncope, headache, vision changes, focal weakness, numbness or tingling and no recent travel or sick contacts. He was on hospice until December 2019 and now relates he is awaiting renal transplant. UDS negative despite reports of opioid use. EKG Sinus rhythm, left axis deviation, heart rate 73, no ST elevations or depressions, no ectopy. Chest radiograph with bibasilar atelectasis. Labs significant for WBC 6.2, Hb 10.1, platelets 195, NA 130, K4, BUN 37, CR 4.8, glucose 734, calcium 8.4, BNP greater than 35,000, troponin II 0.859, albumin 3.1. He is s/p PD cath placement 04/04/2020 with no signs of peritonitis and had removal in May and then transitioned back to HD thereafter. Left heart catheterization 04/29/2020, showed severe triple-vessel disease, 4 patent bypass grafts, diffuse > 70% triple vessel disease with LAD 70-80% occlusion. EF 40-45% on ventriculogram at the time. Echocardiogram 07/18/2020 showed ejection fraction 55-60% Admitted for further care. 11/15: No acute events overnight. Patient continues to complain of pain in his right hip. He states that he needs IV pain control. He does experience chronic pain at home and has had a since a fall about 2 years ago. Patient's chart, labs, images were reviewed and discussed with RN 11/16: No acute events overnight. Patient remains afebrile. Patient continues to have chronic right hip pain. Lying in bed and holding onto his right hip area. He did require a total of 60 mg IV morphine. Converted his dose to p.o. morphine and requires an extra 45 mg. Increased his MS Contin from 15 mg 3 times daily to 30 mg 3 times daily. 11/17: No overnight events. Still confused, c/o hip pain. Unable to lay still for fluoro injection. Tolerated dialysis well. chart and labs reviewed with nursing staff Still with severe right groin pain. No CP or SOB. Cannot move his right leg without significant pain. His has requested physical therapy rehab, He is amenable to rehab now. Vitals/I&O Vitals/I&O: Vital Signs Date Time Temp Pulse Resp B/P (MAP) Pulse Ox O2 Delivery O2 Flow Rate FiO2 11/19/20 07:10 97.2 54 18 105/56 (72) 92 Room Air 97.2 I & O 11/18/20 11/18/20 11/19/20 15:00 23:00 07:00 Intake Total 0 ml Balance 0 ml Physical Exam Lungs: Clear Labs Labs: Laboratory Tests Test 11/18/20 09:43 11/18/20 09:53 11/18/20 11:44 11/18/20 13:40 White Blood Count 8.4 x10^3/uL (4.0-11.0) Red Blood Count 3.30 x10^6/uL (4.30-5.70) Hemoglobin 10.5 g/dL (13.0-17.5) Hematocrit 31.8 % (39.0-53.0) Mean Corpuscular Volume 96 fL (79-100) Mean Corpuscular Hemoglobin 32 pg (25-35) Mean Corpuscular Hemoglobin Concent 33 g/dL (31-37) Red Cell Distribution Width 13.2 % (11.5-14.5) Platelet Count 211 x10^3/uL (140-400) Neutrophils (%) (Auto) 65 % (31-73) Lymphocytes (%) (Auto) 18 % (24-48) Monocytes (%) (Auto) 15 % (0-9) Eosinophils (%) (Auto) 2 % (0-3) Basophils (%) (Auto) 0 % (0-3) Neutrophils # (Auto) 5.5 x10^3/uL (1.8-7.7) Lymphocytes # (Auto) 1.5 x10^3/uL (1.0-4.8) Monocytes # (Auto) 1.2 x10^3/uL (0.0-1.1) Eosinophils # (Auto) 0.1 x10^3/uL (0.0-0.7) Basophils # (Auto) 0.0 x10^3/uL (0.0-0.2) Sodium Level 136 mmol/L (136-145) Potassium Level 4.3 mmol/L (3.5-5.1) Chloride Level 97 mmol/L (98-107) Carbon Dioxide Level 27 mmol/L (21-32) Anion Gap 12 (6-14) Blood Urea Nitrogen 48 mg/dL (8-26) Creatinine 7.0 mg/dL (0.7-1.3) Estimated GFR (Cockcroft-Gault) 8.3 Glucose Level 143 mg/dL (70-99) Calcium Level 8.7 mg/dL (8.5-10.1) Phosphorus Level 5.9 mg/dL (2.6-4.7) Albumin 3.1 g/dL (3.4-5.0) Glucose (Fingerstick) 182 mg/dL (70-99) Coronavirus (PCR) Not detected (Not Detected) Test 11/18/20 16:45 11/18/20 20:31 11/19/20 06:00 11/19/20 07:02 Glucose (Fingerstick) 138 mg/dL (70-99) 127 mg/dL (70-99) 96 mg/dL (70-99) Sodium Level 131 mmol/L (136-145) Potassium Level 4.5 mmol/L (3.5-5.1) Chloride Level 93 mmol/L (98-107) Carbon Dioxide Level 26 mmol/L (21-32) Anion Gap 12 (6-14) Blood Urea Nitrogen 58 mg/dL (8-26) Creatinine 8.4 mg/dL (0.7-1.3) Estimated GFR (Cockcroft-Gault) 6.7 Glucose Level 91 mg/dL (70-99) Calcium Level 8.1 mg/dL (8.5-10.1) Assessment and Plan Assessmemt and Plan Problems Medical Problems: (1) Hip pain, right Status: Acute (2) Intractable pain Status: Acute Comment Review of Relevant I have reviewed the following items nelda (where applicable) has been applied. Justifications for Admission Other Justification GALI ROMERO MD Nov 19, 2020 07:52
[2020-11-19] MEDS: MORPHINE ER 30 MG TABLET.ER PO SCH ×2 (08:06→13:29)
[2020-11-19] MEDS: SEVELAMER CARBONATE 800 MG TABLET. PO SCH ×2 (08:06→11:14)
[2020-11-19] MEDS: CARVEDILOL 12.5 MG TABLET. PO SCH (08:06)
[2020-11-19] MEDS: LUBIPROSTONE 24 MCG CAPSULE PO SCH (08:06)
[2020-11-19] MEDS: FOLIC/VIT B COMP W-C (RENAL) TABLET. PO SCH (08:07)
[2020-11-19] MEDS: RANOLAZINE 500 MG TAB.ER.12H PO SCH (08:07)
[2020-11-19] MEDS: PANTOPRAZOLE 40 MG TABLET.DR. PO SCH (08:07)
[2020-11-19] MEDS: LISINOPRIL 20 MG TABLET PO SCH (08:07)
[2020-11-19] MEDS: IBUPROFEN 400 MG TABLET. PO SCH ×3 (08:07→16:11)
[2020-11-19] MEDS: DOCUSATE SODIUM 100 MG CAPSULE. PO SCH (08:07)
[2020-11-19] MEDS: ASPIRIN CHEWABLE 81 MG TABLET. PO SCH (08:08)
[2020-11-19] MEDS: DIVALPROEX DELAYED RELEASE 500 MG TABLET.DR. PO SCH (08:08)
[2020-11-19] MEDS ORDERED: DIALYSIS PATIENT. MC PRN ×2 (08:15)
[2020-11-19] MEDS ORDERED: ALBUMIN HUMAN 25% 200 ML IV PRN (08:15)
[2020-11-19] MEDS ORDERED: IV NORMAL SALINE 1000ML BAG 1,000 ML IV PRN ×2 (08:15)
--- NOTE | 2020-11-19 10:33 | PDOC ---
PROGRESS NOTES Date of Service DATE: 11/19/20 TIME: 10:32 Subjective Subjective No new complaints. Objective Objective Vital Signs Date Time Temp Pulse Resp B/P (MAP) Pulse Ox O2 Delivery O2 Flow Rate FiO2 11/19/20 08:08 54 105/56 11/19/20 07:48 Room Air 11/19/20 07:10 97.2 18 92 97.2 11/17/20 19:00 94.0 Intake and Output 11/19/20 07:00 Intake Total 0 ml Balance 0 ml Intake Oral 0 ml Physical Exam Physical Exam He is resting supine receiving hemodialysis and did not wake up to verbal stimuli. Assessment Assessment Problems Medical Problems: (1) Hip pain, right Status: Acute (2) Intractable pain Status: Acute Plan Plan of Care To get him up as tolerated if he co-operates. Comment Review of Relevant I have reviewed the following items nelda (where applicable) has been applied. Labs Laboratory Tests Test 11/17/20 16:41 11/17/20 18:49 11/18/20 07:13 11/18/20 09:43 Glucose (Fingerstick) 191 mg/dL (70-99) 217 mg/dL (70-99) 102 mg/dL (70-99) White Blood Count 8.4 x10^3/uL (4.0-11.0) Red Blood Count 3.30 x10^6/uL (4.30-5.70) Hemoglobin 10.5 g/dL (13.0-17.5) Hematocrit 31.8 % (39.0-53.0) Mean Corpuscular Volume 96 fL (79-100) Mean Corpuscular Hemoglobin 32 pg (25-35) Mean Corpuscular Hemoglobin Concent 33 g/dL (31-37) Red Cell Distribution Width 13.2 % (11.5-14.5) Platelet Count 211 x10^3/uL (140-400) Neutrophils (%) (Auto) 65 % (31-73) Lymphocytes (%) (Auto) 18 % (24-48) Monocytes (%) (Auto) 15 % (0-9) Eosinophils (%) (Auto) 2 % (0-3) Basophils (%) (Auto) 0 % (0-3) Neutrophils # (Auto) 5.5 x10^3/uL (1.8-7.7) Lymphocytes # (Auto) 1.5 x10^3/uL (1.0-4.8) Monocytes # (Auto) 1.2 x10^3/uL (0.0-1.1) Eosinophils # (Auto) 0.1 x10^3/uL (0.0-0.7) Basophils # (Auto) 0.0 x10^3/uL (0.0-0.2) Test 11/18/20 09:53 11/18/20 11:44 11/18/20 13:40 11/18/20 16:45 Sodium Level 136 mmol/L (136-145) Potassium Level 4.3 mmol/L (3.5-5.1) Chloride Level 97 mmol/L (98-107) Carbon Dioxide Level 27 mmol/L (21-32) Anion Gap 12 (6-14) Blood Urea Nitrogen 48 mg/dL (8-26) Creatinine 7.0 mg/dL (0.7-1.3) Estimated GFR (Cockcroft-Gault) 8.3 Glucose Level 143 mg/dL (70-99) Calcium Level 8.7 mg/dL (8.5-10.1) Phosphorus Level 5.9 mg/dL (2.6-4.7) Albumin 3.1 g/dL (3.4-5.0) Glucose (Fingerstick) 182 mg/dL (70-99) 138 mg/dL (70-99) Coronavirus (PCR) Not detected (Not Detected) Test 11/18/20 20:31 11/19/20 06:00 11/19/20 07:02 Glucose (Fingerstick) 127 mg/dL (70-99) 96 mg/dL (70-99) Sodium Level 131 mmol/L (136-145) Potassium Level 4.5 mmol/L (3.5-5.1) Chloride Level 93 mmol/L (98-107) Carbon Dioxide Level 26 mmol/L (21-32) Anion Gap 12 (6-14) Blood Urea Nitrogen 58 mg/dL (8-26) Creatinine 8.4 mg/dL (0.7-1.3) Estimated GFR (Cockcroft-Gault) 6.7 Glucose Level 91 mg/dL (70-99) Calcium Level 8.1 mg/dL (8.5-10.1) Laboratory Tests Test 11/18/20 11:44 11/18/20 13:40 11/18/20 16:45 11/18/20 20:31 Glucose (Fingerstick) 182 mg/dL (70-99) 138 mg/dL (70-99) 127 mg/dL (70-99) Coronavirus (PCR) Not detected (Not Detected) Test 11/19/20 06:00 11/19/20 07:02 Sodium Level 131 mmol/L (136-145) Potassium Level 4.5 mmol/L (3.5-5.1) Chloride Level 93 mmol/L (98-107) Carbon Dioxide Level 26 mmol/L (21-32) Anion Gap 12 (6-14) Blood Urea Nitrogen 58 mg/dL (8-26) Creatinine 8.4 mg/dL (0.7-1.3) Estimated GFR (Cockcroft-Gault) 6.7 Glucose Level 91 mg/dL (70-99) Calcium Level 8.1 mg/dL (8.5-10.1) Glucose (Fingerstick) 96 mg/dL (70-99) Medications Current Medications Morphine Sulfate (Morphine Sulfate) 10 mg 1X ONCE IM Last administered on 11/14/20at 13:27; Start 11/14/20 at 13:45; Stop 11/14/20 at 13:46; Status DC Morphine Sulfate (Morphine Sulfate) 10 mg 1X ONCE IV Last administered on 11/14/20at 15:52; Start 11/14/20 at 14:15; Stop 11/14/20 at 14:21; Status DC Iohexol (Omnipaque 300 Mg/ml) 75 ml 1X ONCE IV ; Start 11/14/20 at 14:30; Stop 11/14/20 at 14:31; Status DC Info (CONTRAST GIVEN -- Rx MONITORING) 1 each PRN DAILY PRN MC SEE COMMENTS; Start 11/14/20 at 14:30; Stop 11/16/20 at 14:29; Status DC Ondansetron HCl (Zofran) 4 mg PRN Q8HRS PRN IV NAUSEA/VOMITING; Start 11/14/20 at 16:30; Stop 11/15/20 at 16:29; Status DC Morphine Sulfate (Morphine Sulfate) 10 mg PRN Q2HR PRN IV PAIN Last administered on 11/15/20at 04:23; Start 11/14/20 at 16:30; Stop 11/15/20 at 09:45; Status DC Insulin Human Lispro (HumaLOG) 0-5 UNITS TIDWMEALS SQ Last administered on 11/16/20at 17:16; Start 11/14/20 at 17:00 Dextrose (Dextrose 50%-Water Syringe) 12.5 gm PRN Q15MIN PRN IV SEE COMMENTS; Start 11/14/20 at 16:30 Influenza Virus Vaccine Quadrival (Fluzone Quad Syringe) 0.5 ml ONCE ONCE VAX IM ; Start 11/15/20 at 09:00; Stop 11/15/20 at 09:01; Status DC Amlodipine Besylate (Norvasc) 10 mg DAILY PO Last administered on 11/19/20at 08:08; Start 11/15/20 at 11:00 Aspirin (Aspirin Chewable) 81 mg DAILY PO Last administered on 11/19/20at 08:08; Start 11/15/20 at 11:00 Atorvastatin Calcium (Lipitor) 40 mg QHS PO Last administered on 11/18/20at 21:20; Start 11/15/20 at 21:00 Carvedilol (Coreg) 25 mg BIDWMEALS PO Last administered on 11/19/20at 08:06; Start 11/15/20 at 17:00 Divalproex Sodium (Depakote) 1,000 mg BID PO Last administered on 11/19/20at 08:08; Start 11/15/20 at 11:00 Docusate Sodium (Colace) 100 mg DAILY PO Last administered on 11/19/20at 08:07; Start 11/15/20 at 11:00 Vitamin B Complex/ Vitamin C (Gissel-Irvin) 1 tab DAILY PO Last administered on 11/19/20at 08:07; Start 11/15/20 at 11:00 Gabapentin (Neurontin) 300 mg QHS PO Last administered on 11/18/20at 21:20; Start 11/15/20 at 21:00 Lisinopril (Prinivil) 20 mg DAILY PO Last administered on 11/19/20at 08:07; Start 11/15/20 at 11:00 Lubiprostone (Amitiza) 24 mcg DAILY PO Last administered on 11/19/20at 08:06; Start 11/15/20 at 11:00 Morphine Sulfate (Ms Contin) 15 mg TID PO Last administered on 11/15/20at 20:23; Start 11/15/20 at 14:00; Stop 11/16/20 at 07:34; Status DC Oxycodone/ Acetaminophen (Percocet 10/325) 1 tab QIDPRN PRN PO PAIN Last administered on 11/17/20at 03:48; Start 11/15/20 at 09:30 Ranolazine (Ranexa) 500 mg BID PO Last administered on 11/19/20at 08:07; Start 11/15/20 at 11:00 Sevelamer Carbonate (Renvela) 800 mg TIDWMEALS PO Last administered on 11/19/20at 08:06; Start 11/15/20 at 12:00 Citalopram Hydrobromide (CeleXA) 40 mg HS PO Last administered on 11/18/20at 21:20; Start 11/15/20 at 21:00 Ondansetron HCl (Zofran Odt) 4 mg PRN Q8HRS PRN PO NAUSEA/VOMITING; Start at 10:00 Pantoprazole Sodium (Protonix) 40 mg DAILYAC PO Last administered on 11/19/20at 08:07; Start 11/16/20 at 07:30 Morphine Sulfate (Morphine Sulfate) 4 mg Q2HR PRN IV PAIN; Start 11/15/20 at 10:00; Status UNV Morphine Sulfate (Morphine Sulfate) 4 mg PRN Q2HR PRN IV PAIN Last administered on 11/16/20at 11:47; Start 11/15/20 at 09:45; Stop 11/17/20 at 08:58; Status DC Info (PHARMACY MONITORING -- do not chart) 1 each PRN DAILY PRN MC SEE COMMENTS; Start 11/15/20 at 17:15; Stop 11/17/20 at 13:11; Status DC Morphine Sulfate (Ms Contin) 30 mg TID PO Last administered on 11/19/20at 08:06; Start 11/16/20 at 09:00 Sodium Chloride 1,000 ml @ 1,000 mls/hr Q1H PRN IV hypotension; Start 11/17/20 at 08:30; Stop 11/17/20 at 14:29; Status DC Sodium Chloride 1,000 ml @ 400 mls/hr Q2H30M PRN IV PATENCY; Start 11/17/20 at 08:30; Stop 11/17/20 at 20:29; Status DC Info (PHARMACY MONITORING -- do not chart) 1 each PRN DAILY PRN MC SEE COMMENTS; Start 11/17/20 at 08:30; Stop 11/19/20 at 08:11; Status DC Info (PHARMACY MONITORING -- do not chart) 1 each PRN DAILY PRN MC SEE COMMENTS; Start 11/17/20 at 08:30; Status UNV Methylprednisolone Acetate (DEPO-Medrol 40MG VIAL) 40 mg 1X ONCE IM ; Start 11/17/20 at 09:00; Stop 11/17/20 at 09:13; Status DC Bupivacaine HCl (Sensorcaine-Mpf 0.25%) 10 ml 1X ONCE IJ ; Start 11/17/20 at 09:00; Stop 11/17/20 at 09:13; Status DC Ibuprofen (Motrin) 800 mg TIDAC PO Last administered on 11/19/20at 08:07; Start 11/17/20 at 11:30 Fentanyl Citrate (Fentanyl 2ml Vial) 50 mcg PRN Q4HRS PRN IVP MODERATE TO SEVERE PAIN Last administered on 11/18/20at 17:22; Start 11/17/20 at 09:45 Methylprednisolone Acetate (DEPO-Medrol 80MG VIAL) 80 mg 1X ONCE INJ ; Start 11/17/20 at 13:00; Stop 11/17/20 at 13:11; Status DC Lidocaine HCl (Buffered Lidocaine 1%) 6 ml 1X ONCE INJ ; Start 11/17/20 at 13:00; Stop 11/17/20 at 13:11; Status DC Bupivacaine HCl (Sensorcaine Mpf 0.5%) 30 ml 1X ONCE INJ ; Start 11/17/20 at 13:00; Stop 11/17/20 at 13:11; Status DC Bupivacaine HCl (Sensorcaine Mpf 0.5%) 20 ml 1X ONCE IJ ; Start 11/17/20 at 13:00; Stop 11/17/20 at 13:01; Status Cancel Iohexol (Omnipaque 300 Mg/ml) 50 ml 1X ONCE IJ Last administered on 11/17/20at 14:20; Start 11/17/20 at 13:15; Stop 11/17/20 at 13:16; Status DC Info (CONTRAST GIVEN -- Rx MONITORING) 1 each PRN DAILY PRN MC SEE COMMENTS; Start 11/17/20 at 13:30; Stop 11/19/20 at 13:29 Iohexol (Omnipaque 300 Mg/ml) 50 ml STK-MED ONCE .ROUTE ; Start 11/17/20 at 13:16; Stop 11/17/20 at 13:16; Status DC Bupivacaine HCl (Sensorcaine-Mpf 0.25%) 10 ml 1X ONCE IJ ; Start 11/17/20 at 13:45; Stop 11/17/20 at 13:46; Status Cancel Methylprednisolone Acetate (DEPO-Medrol 40MG VIAL) 40 mg 1X ONCE IM ; Start 11/17/20 at 14:00; Stop 11/17/20 at 13:46; Status DC Methylprednisolone Acetate (DEPO-Medrol 40MG VIAL) 40 mg 1X ONCE INJ ; Start 11/17/20 at 14:00; Stop 11/17/20 at 14:01; Status DC Sodium Chloride 1,000 ml @ 1,000 mls/hr Q1H PRN IV hypotension; Start 11/19/20 at 08:15; Stop 11/19/20 at 14:14 Albumin Human 200 ml @ 200 mls/hr 1X PRN PRN IV Hypotension; Start 11/19/20 at 08:15; Stop 11/19/20 at 14:14 Sodium Chloride 1,000 ml @ 400 mls/hr Q2H30M PRN IV PATENCY; Start 11/19/20 at 08:15; Stop 11/19/20 at 20:14 Info (PHARMACY MONITORING -- do not chart) 1 each PRN DAILY PRN MC SEE COMMENTS; Start 11/19/20 at 08:15; Stop 11/19/20 at 08:11; Status DC Info (PHARMACY MONITORING -- do not chart) 1 each PRN DAILY PRN MC SEE COMMENTS; Start 11/19/20 at 08:15 Active Scripts Active Percocet 5-325 Mg Tablet (Oxycodone/Acetaminophen) 1 Each Tablet 1 Tab PO PRN Q6HRS PRN Tylenol (Acetaminophen) 325 Mg Tablet 650 Mg PO PRN Q6HRS PRN 14 Days Carvedilol (Carvedilol) 12.5 Mg Tablet 25 Mg PO BIDWMEALS 30 Days Hydralazine Hcl 50 Mg Tablet 50 Mg PO BID 30 Days Atorvastatin Calcium 40 Mg Tablet 40 Mg PO QHS 30 Days Gabapentin (Gabapentin) 100 Mg Capsule 100 Mg PO TID 30 Days [Diclofenac Sodium] 100 GM Gel..gram. 1 Christo TP BID 30 Days Reported Morphine Sulfate Er (Morphine Sulfate) 15 Mg Tablet.er 1 Tab PO TID Percocet 10-325 Mg Tablet (Oxycodone/Acetaminophen) 1 Each Tablet 1 Tab PO QIDPRN PRN MDD 4 Tablet(s) Tresiba (Insulin Degludec) 100 Unit/1 Ml Vial 42 Unit SQ HS Ranexa (Ranolazine) 500 Mg Tab.er.12h 500 Mg PO BID Renal-Irvin Tablet (Folic Acid/Vit Bcomp,C) 0.8 Mg Tablet 0.8 Mg PO DAILY Novolog (Insulin Aspart) 100 Unit/1 Ml Vial 0 SQ PRN TID PRN Lisinopril 20 Mg Tablet 20 Mg PO DAILY Zofran (Ondansetron Hcl) 4 Mg Tablet 1 Tab PO PRN Q4HRS PRN NITROGLYCERIN SubLingual (Nitroglycerin) 0.4 Mg Tab.subl 0.4 Mg SL PRN Q5MIN PRN Citalopram Hbr (Citalopram Hydrobromide) 40 Mg Tablet 40 Mg PO HS Protonix (Pantoprazole Sodium) 20 Mg Tablet.dr 40 Mg PO DAILY Docusate Sodium 100 Mg Capsule 1 Cap PO DAILY Divalproex Sodium 500 Mg Tablet.dr 2 Tab PO BID Aspirin 81 Mg Tab.chew 1 Tab PO DAILY Amitiza (Lubiprostone) 24 Mcg Capsule 1 Cap PO DAILY Norvasc (Amlodipine Besylate) 10 Mg Tablet 10 Mg PO DAILY Renvela (Sevelamer Carbonate) 800 Mg Tablet 800 Mg PO TIDWMEALS Vitals/I & O Vital Sign - Last 24 Hours 11/18/20 11/18/20 11/18/20 11/18/20 11:00 15:13 15:23 17:16 Temp 98.6 98.3 98.6 98.3 Pulse 78 64 64 Resp 18 18 B/P (MAP) 100/45 (63) 122/81 (95) 122/81 Pulse Ox 94 94 O2 Delivery Room Air Room Air Room Air 11/18/20 11/18/20 11/18/20 11/18/20 17:22 18:23 19:00 19:23 Temp 98.1 98.1 Pulse 61 Resp 18 20 B/P (MAP) 126/67 (86) Pulse Ox 97 O2 Delivery Room Air Room Air Room Air Room Air 11/18/20 11/18/20 11/18/20 11/18/20 19:55 21:19 21:20 22:52 Temp 98.3 98.3 Pulse 61 60 Resp 20 18 B/P (MAP) 126/67 131/62 (85) Pulse Ox 92 O2 Delivery Room Air Room Air Room Air 11/19/20 11/19/20 11/19/20 11/19/20 01:20 03:00 07:10 07:48 Temp 98.9 97.2 98.9 97.2 Pulse 62 54 Resp 20 18 18 B/P (MAP) 106/52 (70) 105/56 (72) Pulse Ox 92 92 O2 Delivery Room Air Room Air Room Air Room Air 11/19/20 11/19/20 11/19/20 11/19/20 08:06 08:07 08:07 08:08 Pulse 54 54 54 54 B/P (MAP) 105/56 105/56 105/56 105/56 Intake and Output 11/18/20 11/18/20 11/19/20 15:00 23:00 07:00 Intake Total 0 ml Balance 0 ml Justifications for Admission Other Justification MARCY REID MD Nov 19, 2020 10:33
--- NOTE | 2020-11-19 10:46 | PDOC ---
DATE OF SERVICE DATE: 11/19/20 TIME: 10:44 SUBJECTIVE ROS states no improvement in Rt groin pain, mild jerking movements, seen on dialysis, awake, answering questions OBJECTIVE Vital Signs Vital Signs Date Time Temp Pulse Resp B/P (MAP) Pulse Ox O2 Delivery O2 Flow Rate FiO2 11/19/20 08:08 54 105/56 11/19/20 07:48 Room Air 11/19/20 07:10 97.2 18 92 97.2 I & 0 Intake and Output 11/19/20 07:00 Intake Total 0 ml Balance 0 ml Intake Oral 0 ml PHYSICAL EXAM Physical Exam GENERAL: NAD HEENT: OM moist NECK: supple CARDIOVASCULAR: S1, S2. LUNGS: CTA , Non labored ABDOMEN: Soft, obese , : No Hale. EXTREMITIES: no edema NEURO- Grossly normal DERM No Rash : DIAGNOSIS/ASSESSMENT Assessment & Plan ESRD:On HD MWF(per Dr. Iglesias's note ) , previously he was on TTS schedule Seen on dialysis , tolerating well, continue as ordered, Ravi Meraz Intractable right hip pain- pr Primary and PM and R Chronic pain Diabetes, II--insulin dependent with hyperglycemia CAD s/p CABG. Cath 2019 with patent grafts HTN - will cont meds BP disorder - on depakote Seizures - on depakote Acute on chronic diastolic CHF; Echo 07/19 with preserved LV systolic function - COMMENT/RELEVANT DATA Meds Current Medications Medications (Trade) Dose Ordered Sig/Brittani Start Time Stop Time Status Last Admin Dose Admin Albumin Human 200 ml @ 200 mls/hr 1X PRN PRN 11/19/20 08:15 11/19/20 14:14 Amlodipine Besylate (Norvasc) 10 mg DAILY 11/15/20 11:00 11/19/20 08:08 10 MG Aspirin (Aspirin Chewable) 81 mg DAILY 11/15/20 11:00 11/19/20 08:08 81 MG Atorvastatin Calcium (Lipitor) 40 mg QHS 11/15/20 21:00 11/18/20 21:20 40 MG Bupivacaine HCl (Sensorcaine Mpf 0.5%) 20 ml 1X ONCE 11/17/20 13:00 11/17/20 13:01 Cancel Bupivacaine HCl (Sensorcaine-Mpf 0.25%) 10 ml 1X ONCE 11/17/20 13:45 11/17/20 13:46 Cancel Carvedilol (Coreg) 25 mg BIDWMEALS 11/15/20 17:00 11/19/20 08:06 25 MG Citalopram Hydrobromide (CeleXA) 40 mg HS 11/15/20 21:00 11/18/20 21:20 40 MG Dextrose (Dextrose 50%-Water Syringe) 12.5 gm PRN Q15MIN PRN 11/14/20 16:30 Divalproex Sodium (Depakote) 1,000 mg BID 11/15/20 11:00 11/19/20 08:08 1,000 MG Docusate Sodium (Colace) 100 mg DAILY 11/15/20 11:00 11/19/20 08:07 100 MG Fentanyl Citrate (Fentanyl 2ml Vial) 50 mcg PRN Q4HRS PRN 11/17/20 09:45 11/18/20 17:22 50 MCG Gabapentin (Neurontin) 300 mg QHS 11/15/20 21:00 11/18/20 21:20 300 MG Ibuprofen (Motrin) 800 mg TIDAC 11/17/20 11:30 11/19/20 08:07 800 MG Influenza Virus Vaccine Quadrival (Fluzone Quad [id number] Syringe) 0.5 ml ONCE ONCE 11/15/20 09:00 11/15/20 09:01 DC Info (CONTRAST GIVEN -- Rx MONITORING) 1 each PRN DAILY PRN 11/17/20 13:30 11/19/20 13:29 Info (PHARMACY MONITORING -- do not chart) 1 each PRN DAILY PRN 11/19/20 08:15 Insulin Human Lispro (HumaLOG) 0-5 UNITS TIDWMEALS 11/14/20 17:00 11/16/20 17:16 2 UNITS Iohexol (Omnipaque 300 Mg/ml) 50 ml STK-MED ONCE 11/17/20 13:16 11/17/20 13:16 DC Lidocaine HCl (Buffered Lidocaine 1%) 6 ml 1X ONCE 11/17/20 13:00 11/17/20 13:11 DC Lisinopril (Prinivil) 20 mg DAILY 11/15/20 11:00 11/19/20 08:07 20 MG Lubiprostone (Amitiza) 24 mcg DAILY 11/15/20 11:00 11/19/20 08:06 24 MCG Methylprednisolone Acetate (DEPO-Medrol 40MG VIAL) 40 mg 1X ONCE 11/17/20 14:00 11/17/20 14:01 DC Methylprednisolone Acetate (DEPO-Medrol 80MG VIAL) 80 mg 1X ONCE 11/17/20 13:00 11/17/20 13:11 DC Morphine Sulfate (Morphine Sulfate) 4 mg PRN Q2HR PRN 11/15/20 09:45 11/17/20 08:58 DC 11/16/20 11:47 4 MG Morphine Sulfate (Ms Contin) 30 mg TID 11/16/20 09:00 11/19/20 08:06 30 MG Ondansetron HCl (Zofran Odt) 4 mg PRN Q8HRS PRN 11/15/20 10:00 Ondansetron HCl (Zofran) 4 mg PRN Q8HRS PRN 11/14/20 16:30 11/15/20 16:29 DC Oxycodone/ Acetaminophen (Percocet 10/325) 1 tab QIDPRN PRN 11/15/20 09:30 11/17/20 03:48 1 TAB Pantoprazole Sodium (Protonix) 40 mg DAILYAC 11/16/20 07:30 11/19/20 08:07 40 MG Ranolazine (Ranexa) 500 mg BID 11/15/20 11:00 11/19/20 08:07 500 MG Sevelamer Carbonate (Renvela) 800 mg TIDWMEALS 11/15/20 12:00 11/19/20 08:06 800 MG Sodium Chloride 1,000 ml @ 400 mls/hr Q2H30M PRN 11/19/20 08:15 11/19/20 20:14 Vitamin B Complex/ Vitamin C (Gissel-Irvin) 1 tab DAILY 11/15/20 11:00 11/19/20 08:07 1 TAB Lab Laboratory Tests Test 11/18/20 11:44 11/18/20 13:40 11/18/20 16:45 11/18/20 20:31 Glucose (Fingerstick) 182 mg/dL (70-99) 138 mg/dL (70-99) 127 mg/dL (70-99) Coronavirus (PCR) Not detected (Not Detected) Test 11/19/20 06:00 11/19/20 07:02 Sodium Level 131 mmol/L (136-145) Potassium Level 4.5 mmol/L (3.5-5.1) Chloride Level 93 mmol/L (98-107) Carbon Dioxide Level 26 mmol/L (21-32) Anion Gap 12 (6-14) Blood Urea Nitrogen 58 mg/dL (8-26) Creatinine 8.4 mg/dL (0.7-1.3) Estimated GFR (Cockcroft-Gault) 6.7 Glucose Level 91 mg/dL (70-99) Calcium Level 8.1 mg/dL (8.5-10.1) Glucose (Fingerstick) 96 mg/dL (70-99) Results All relevant outside records, renal labs, imaging studies, telemetry/EKG's were reviewed. Justicifation of Admission Dx: Justifications for Admission: Justification of Admission Dx: Yes Chronic Renal Failure: Hypertension Altered Mental Status: Altered Mental Status JEAN PAUL CESPEDES MD Nov 19, 2020 10:46
[2020-11-19] MEDS ORDERED: MORP-15 PO (11:26)
[2020-11-19] MEDS ORDERED: OXYC1TAB22 PO (11:26)
--- NOTE | 2020-11-19 11:27 | SNU/HH DC ---
DISCHARGE ORDERS DISCHARGE INFORMATION: DISCHARGE DATE: Nov 19, 2020 FINAL DIAGNOSIS Problems Medical Problems: (1) Hip pain, right Status: Acute (2) Intractable pain Status: Acute CONDITION ON DISCHARGE: Stable CODE STATUS: Code Status: Full DETENTION: SNF STAY <30 DAYS: Yes POST DISCHARGE ORDERS: ACTIVITY ORDERS: No restrictions WEIGHT BEARING STATUS: No restrictions DIET AFTER DISCHARGE: Renal WOUND/INCISION CARE: Change dressing CHECKS AFTER DISCHARGE: CHECKS AFTER DISCHARGE: Check blood press - daily, Check blood sugar, ac/hs, Weigh Yourself Daily TREATMENT/EQUIPMENT ORDERS: ADAPTIVE EQUIPMENT NEEDED: None Physical Therapy For: Evalulation/Treatment Occupational Therapy For: Evaluation/Treatment DISCHARGE MEDICATIONS: Home Meds Active Scripts Morphine Sulfate (MORPHINE SULFATE ER) 15 Mg Tablet.er, 1 TAB PO TID for pain for 6 Days, #18 TAB Prov:GALI ROMERO MD 11/19/20 Oxycodone/Apap 10-325 (PERCOCET 10-325 MG TABLET ) 1 Each Tablet, 1 TAB PO QIDPRN PRN for PAIN MDD 4 Tablet(s) for 6 Days, #24 TAB 0 Refills Prov:GALI ROMERO MD 11/19/20 Acetaminophen (TYLENOL) 325 Mg Tablet, 650 MG PO PRN Q6HRS PRN for Headaches, Temp > 101.5F for 14 Days, #30 TAB Prov:SALOMÓN HADDAD MD 08/10/20 Carvedilol (CARVEDILOL ) 12.5 Mg Tablet, 25 MG PO BIDWMEALS for heart for 30 Days, #120 TAB Prov:SALOMÓN HADDAD MD 08/10/20 Hydralazine Hcl (HYDRALAZINE HCL) 50 Mg Tablet, 50 MG PO BID for blood pressure for 30 Days, #60 TAB Prov:SALOMÓN HADDAD MD 08/10/20 Atorvastatin Calcium (ATORVASTATIN CALCIUM) 40 Mg Tablet, 40 MG PO QHS for cholesterol for 30 Days, #30 TAB Prov:SALOMÓN HADDAD MD 08/10/20 Gabapentin (GABAPENTIN ) 100 Mg Capsule, 100 MG PO TID for NEUROGENIC PAIN for 30 Days, #90 CAP Prov:GALI ROMERO MD 05/21/20 [Diclofenac Sodium 1% Topical] 100 GM GEL..GRAM. No Conflict Check, 1 MAYRA TP BID for Costochondritis for 30 Days, #60 EACH Prov:GALI ROMERO MD 03/14/20 Reported Medications Insulin Degludec (Tresiba) 100 Unit/1 Ml Vial, 42 UNIT SQ HS for control blood sugar, EACH 06/23/20 Ranolazine (RANEXA) 500 Mg Tab.er.12h, 500 MG PO BID for Angina, TAB.SR 05/11/20 Folic Acid/Vit Bcomp,C (Renal-Irvin Tablet) 0.8 Mg Tablet, 0.8 MG PO DAILY for supplement, TAB 04/03/20 Insulin Aspart (NOVOLOG) 100 Unit/1 Ml Vial, 0 SQ PRN TID PRN for sliding scale, VIAL 04/03/20 Lisinopril (LISINOPRIL) 20 Mg Tablet, 20 MG PO DAILY for FOR HYPERTENSION, #30 TAB 0 Refills 01/17/20 Ondansetron Hcl (ZOFRAN) 4 Mg Tablet, 1 TAB PO PRN Q4HRS PRN for NAUSEA, #20 TAB 12/30/19 Nitroglycerin (NITROGLYCERIN SubLingual) 0.4 Mg Tab.subl, 0.4 MG SL PRN Q5MIN PRN for CHEST PAIN, BOTTLE 12/30/19 Citalopram Hydrobromide (CITALOPRAM HBR) 40 Mg Tablet, 40 MG PO HS for anxiety, TAB 12/30/19 Pantoprazole Sodium (PROTONIX) 20 Mg Tablet.dr, 40 MG PO DAILY for , TAB 07/16/19 Docusate Sodium (DOCUSATE SODIUM) 100 Mg Capsule, 1 CAP PO DAILY for , #30 CAP 07/16/19 Divalproex Sodium (DIVALPROEX SODIUM) 500 Mg Tablet.dr, 2 TAB PO BID for , #60 TAB 1 Refill 07/16/19 Aspirin (ASPIRIN) 81 Mg Tab.chew, 1 TAB PO DAILY for , #30 TAB 3 Refills 07/16/19 Lubiprostone (AMITIZA) 24 Mcg Capsule, 1 CAP PO DAILY for , #60 CAP 5 Refills 07/16/19 Amlodipine Besylate (NORVASC) 10 Mg Tablet, 10 MG PO DAILY, TAB 07/24/18 Sevelamer Carbonate (RENVELA) 800 Mg Tablet, 800 MG PO TIDWMEALS, TAB 07/24/18 Discontinued Scripts Oxycodone/Apap 5-325 (PERCOCET 5-325 MG TABLET ) 1 Each Tablet, 1 TAB PO PRN Q6HRS PRN for PAIN, #10 TAB 0 Refills Prov:JERSON WILLIAMSON APRN 09/02/20 GALI ROMERO MD Nov 19, 2020 11:27
[2020-11-19 14:28] VITALS: BP 127/49
--- NOTE | 2020-11-19 16:30 | NUR ---
Discharge Note: JULIAN GARCÍA Discharge instructions and discharge home medications reviewed with Other facility and a copy given. All questions have been answered and understanding verbalized. Report given to SHERIF Frausto at [facility]. The following instructions and handouts were given: plan of care, medications, activity, labs, imaging, skin, etc. Discontinued lines and drains: IV in right wrist removed, catheter tip intact. Patient discharged to [facility] with manager transportation planning, wheelchair used for mobility to discharge vehicle.
--- NOTE | 2020-11-22 07:23 | PDOC3 ---
Discharge Summary Visit Information Date of Admission: Nov 14, 2020 Date of Discharge: Nov 19, 2020 Admitting Diagnosis: Intractable Right hip pain Final Diagnosis Problems Medical Problems: (1) Hip pain, right Status: Acute (2) Intractable pain Status: Acute Brief Hospital Course Allergies Allergies Coded Allergies Type Severity Reaction Last Updated Verified hydromorphone Allergy Severe Anaphylaxis 06/24/20 Yes Brief Hospital Course Mr Bedolla 54 yo M w/ PMHx smoker, CAD s/p CABG x4 in 2017, ischemic CM, ESRD on HD, BP disorder, seizure disorder, DM2, HTN, smoker who presents to ED c/o right hip pain chest pain that he describes as sharp and nonradiating for the past 24 hours prior to admit. Pain is constant 10/10. Pain worsened after a fall from his recliner day of admission. He shifted his weight and then had a sharp pain in his right groin. He suffered a hip fracture in 2018. He has got hardware. He also had a traumatic brain injury at that time. Was seen for chest pain 1 month ago and treated for bronchitis, patient states he felt like he had gotten better. He denies any recent fevers, coughing, vomiting, diarrhea Denies fever, vomiting, diarrhea, dizziness, syncope, headache, vision changes, focal weakness, numbness or tingling and no recent travel or sick contacts. He was on hospice until December 2019 and now relates he is awaiting renal transplant. UDS negative despite reports of opioid use. EKG Sinus rhythm, left axis deviation, heart rate 73, no ST elevations or depressions, no ectopy. Chest radiograph with bibasilar atelectasis. Labs significant for WBC 6.2, Hb 10.1, platelets 195, NA 130, K4, BUN 37, CR 4.8, glucose 734, calcium 8.4, BNP greater than 35,000, troponin II 0.859, albumin 3.1. He is s/p PD cath placement 04/04/2020 with no signs of peritonitis and had removal in May and then transitioned back to HD thereafter. Left heart catheterization 04/29/2020, showed severe triple-vessel disease, 4 patent bypass grafts, diffuse > 70% triple vessel disease with LAD 70-80% occlusion. EF 40-45% on ventriculogram at the time. Echocardiogram 07/18/2020 showed ejection fraction 55-60% Admitted for further care. 11/15: No acute events overnight. Patient continues to complain of pain in his right hip. He states that he needs IV pain control. He does experience chronic pain at home and has had a since a fall about 2 years ago. Patient's chart, labs, images were reviewed and discussed with RN 11/16: No acute events overnight. Patient remains afebrile. Patient continues to have chronic right hip pain. Lying in bed and holding onto his right hip area. He did require a total of 60 mg IV morphine. Converted his dose to p.o. morphine and requires an extra 45 mg. Increased his MS Contin from 15 mg 3 times daily to 30 mg 3 times daily. 11/17: No overnight events. Still confused, c/o hip pain. Unable to lay still for fluoro injection. Tolerated dialysis well. chart and labs reviewed with nursing staff Still with right groin pain. No CP or SOB. Cannot move his right leg without significant pain. His has requested physical therapy rehab, He is amenable to rehab now. Has twice refused intra-articular hip injection and due to some confusion his MS contin is reduced to 15mg BID, advised again to change to fent anyl patch, though he insists that the patch does not stick. Intractable right hip pain Chronic pain ESRD HD Falls - will have PT to assess gait, balance. Diabetes, II--insulin dependent with hyperglycemia - will cont sliding scale. reduce glargine with hypoglycemia to 18u, 6u lispro with meals and high sliding scale and 10 u IV insulin Hyponatremia - likely hypervolemic given CHF CAD s/p CABG. Cath 2019 with patent grafts HTN - will cont meds BP disorder - on depakote Seizures - on depakote Acute on chronic diastolic CHF; Echo 07/19 with preserved LV systolic function - will diurese, still makes some urine, likely gained weight 2/2 starting PD, will need UF Hyperlipidemia - cont statin ESRD on HD - transitioned back to HD, will consult nephrology Weight gain - dry weight previously 110kg, now 111kg will consult nephrology for further recs. Smoker - counseled on cessation Hyponatremia - due to hyperglycemia, will monitor Anemia - of chronic renal insufficiency Consult Dr. Orellana for pain management and hip pain Appreciate nephrology consult for hemodialysis Heparin for DVT prophylaxis Protonix GI prophylaxis ADA diet Full code Discussed with RN and SW Disposition inpatient management as above Surrogate decision maker is the Greater than 30 minute spent on d/c to SNF Discharge Information Condition at Discharge: Stable Follow Up: Weeks Disposition/Orders: D/C to Another Facility Scheduled Amlodipine Besylate (Norvasc) 10 Mg Tablet, 10 MG PO DAILY, (Reported) Entered as Reported by: Betzy Norris on 07/24/18 0318 Last Action: Continued on 11/15/20937 by BOUCHRA SALDANA RN Aspirin (Aspirin) 81 Mg Tab.chew, 1 TAB PO DAILY for , #30 Ref 3 (Reported) Entered as Reported by: TREMAYNE ROMERO RN on 07/16/191752 Last Action: Continued on 11/15/20937 by BOUCHRA SALDANA RN Atorvastatin Calcium (Atorvastatin Calcium) 40 Mg Tablet, 40 MG PO QHS for cholesterol for 30 Days, #30 Prescribed by: SALOMÓN HADDAD MD on 08/10/20 1052 Last Action: Continued on 11/15/20937 by BOUCHRA SALDANA RN Carvedilol (Carvedilol ) 12.5 Mg Tablet, 25 MG PO BIDWMEALS for heart for 30 Days, #120 Prescribed by: SALOMÓN HADDAD MD on 08/10/20 105 Last Action: Continued on 11/15/20937 by BOUCHRA SALDANA RN Citalopram Hydrobromide (Citalopram Hbr) 40 Mg Tablet, 40 MG PO HS for anxiety, (Reported) Entered as Reported by: BRENDON SEGURA on 12/30/19 1016 Last Action: Converted on 11/15/20937 by BOUCHRA SALDANA RN Divalproex Sodium (Divalproex Sodium) 500 Mg Tablet.dr, 2 TAB PO BID for , #60 Ref 1 (Reported) Entered as Reported by: TREMAYNE ROMERO RN on 07/16/191752 Last Action: Continued on 11/15/20937 by BOUCHRA SALDANA RN Docusate Sodium (Docusate Sodium) 100 Mg Capsule, 1 CAP PO DAILY for , #30 (Reported) Entered as Reported by: TREMAYNE ROMERO RN on 07/16/191752 Last Action: Continued on 11/15/20937 by BOUCHRA SALDANA RN Folic Acid/Vit Bcomp,C (Renal-Irvin Tablet) 0.8 Mg Tablet, 0.8 MG PO DAILY for supplement, (Reported) Entered as Reported by: SEVEN NIELSEN on 04/03/20 1302 Last Action: Continued on 11/15/20937 by BOUCHRA SALDANA RN Gabapentin (Gabapentin ) 100 Mg Capsule, 100 MG PO TID for NEUROGENIC PAIN for 30 Days, #90 Prescribed by: GALI ROMERO MD on 05/21/20 1638 Last Action: Continued on 11/15/20937 by BOUCHRA SALDANA RN Hydralazine Hcl (Hydralazine Hcl) 50 Mg Tablet, 50 MG PO BID for blood pressure for 30 Days, #60 Prescribed by: SALOMÓN HADDAD MD on 08/10/20 1052 Last Action: Reviewed on 11/14/202224 by UNA CHILD RN Insulin Degludec (Tresiba) 100 Unit/1 Ml Vial, 42 UNIT SQ HS for control blood sugar, (Reported) Entered as Reported by: SEVEN NIELSEN on 06/23/20 1230 Last Action: Reviewed on 11/14/202224 by UNA CHILD RN Lisinopril (Lisinopril) 20 Mg Tablet, 20 MG PO DAILY for FOR HYPERTENSION, #30 Ref 0 (Reported) Entered as Reported by: BHUPENDRA PEREZ on 01/17/20 1035 Last Action: Continued on 11/15/20937 by BOUCHRA SALDANA RN Lubiprostone (Amitiza) 24 Mcg Capsule, 1 CAP PO DAILY for , #60 Ref 5 (Re ported) Entered as Reported by: TREMAYNE ROMERO RN on 07/16/191752 Last Action: Continued on 11/15/20937 by BOUCHRA SALDANA RN Morphine Sulfate (Morphine Sulfate Er) 15 Mg Tablet.er, 1 TAB PO TID for pain for 6 Days, #18 Prescribed by: GALI ROMERO MD on 11/19/20 1126 Pantoprazole Sodium (Protonix) 20 Mg Tablet.dr, 40 MG PO DAILY for , (Reported) Entered as Reported by: TREMAYNE ROMERO RN on 07/16/191752 Last Action: Converted on 11/15/20937 by BOUCHRA SALDANA RN Ranolazine (Ranexa) 500 Mg Tab.er.12h, 500 MG PO BID for Angina, (Reported) Entered as Reported by: TABATHA MCCLENDON RN on 05/11/20 0813 Last Action: Continued on 11/15/20937 by BOUCHRA SALDANA RN Sevelamer Carbonate (Renvela) 800 Mg Tablet, 800 MG PO TIDWMEALS, (Reported) Entered as Reported by: Betzy Norris on 07/24/18 0302 Last Action: Continued on 11/15/20937 by BOUCHRA SALDANA RN [Diclofenac Sodium] 100 GM GEL..GRAM., 1 MAYRA TP BID for Costochondritis for 30 Days, #60 Prescribed by: GALI ROMERO MD on 03/14/20 1053 Last Action: Reviewed on 11/14/202224 by UNA CHILD RN Scheduled PRN Acetaminophen (Tylenol) 325 Mg Tablet, 650 MG PO PRN Q6HRS PRN for Headaches, Temp > 101.5F for 14 Days, #30 Prescribed by: SALOMÓN HADDAD MD on 08/10/20 1052 Insulin Aspart (Novolog) 100 Unit/1 Ml Vial, 0 SQ PRN TID PRN for sliding scale, (Reported) Entered as Reported by: SEVEN NIELSEN on 04/03/20 1302 Last Action: Reviewed on 11/14/202224 by UNA CHILD RN Nitroglycerin (NITROGLYCERIN SubLingual) 0.4 Mg Tab.subl, 0.4 MG SL PRN Q5MIN PRN for CHEST PAIN, (Reported) Entered as Reported by: BRENDON SEGURA on 12/30/19 1016 Last Action: Reviewed on 11/14/202224 by UNA CHILD RN Ondansetron Hcl (Zofran) 4 Mg Tablet, 1 TAB PO PRN Q4HRS PRN for NAUSEA, #20 (Reported) Entered as Reported by: BRENDON SEGURA on 12/30/19 1016 Last Action: Converted on 11/15/20937 by BOUCHRA SALDANA RN Oxycodone/Apap 10-325 (Percocet 10-325 Mg Tablet ) 1 Each Tablet, 1 TAB PO QIDPRN PRN for PAIN MDD 4 Tablet(s) for 6 Days, #24 Ref 0 Prescribed by: GALI ROMERO MD on 11/19/20 1126 Discontinued Medications Oxycodone/Apap 5-325 (Percocet 5-325 Mg Tablet ) 1 Each Tablet, 1 TAB PO PRN Q6HRS PRN for PAIN, #10 Ref 0 Prescribed by: JERSON WILLIAMSON APRN on 09/02/201943 Justicifation of Admission Dx: Justifications for Admission: Justification of Admission Dx: Yes Chronic Renal Failure: Hypertension Altered Mental Status: Altered Mental Status GALI ROMERO MD Nov 22, 2020 07:23
[2020-12-22] MEDS ORDERED: QUET100T4 PO (21:58)
[2021-02-05] MEDS ORDERED: ISOS30TA68 PO (17:14)
[2021-02-07] MEDS ORDERED: CLOP75TA PO (10:46)
[2021-02-07] MEDS ORDERED: HYDR-2869 PO (10:46)
[2021-02-07] MEDS ORDERED: CARV12.511 PO (10:46)
[2021-02-17] MEDS ORDERED: ISOS30TA68 PO (10:39)
== END 2020-11-19 16:30 | DRG 555 ==
LOC: ER 12:07 → ED HOLD 16:22 → 4 NORTH 20:18
PROVIDERS: ADMIT Internal Medicine; ATTEND Internal Medicine
PROC: 5A1D70Z Performance of Urinary Filtration, Intermittent, Less than 6 Hours Per Day (ICD-10-PCS; principal; 2020-11-15)
PROC: 5A1D70Z Performance of Urinary Filtration, Intermittent, Less than 6 Hours Per Day (ICD-10-PCS; 2020-11-17)
PROC: 3E0U33Z Introduction of Anti-inflammatory into Joints, Percutaneous Approach (ICD-10-PCS; 2020-11-17)
PROC: 3E0U3BZ Introduction of Anesthetic Agent into Joints, Percutaneous Approach (ICD-10-PCS; 2020-11-17)
PROC: 5A1D70Z Performance of Urinary Filtration, Intermittent, Less than 6 Hours Per Day (ICD-10-PCS; 2020-11-19)
DX: M25.551 Pain in right hip (principal); N18.6 End stage renal disease; I50.33 Acute on chronic diastolic (congestive) heart failure; I13.2 Hypertensive heart and chronic kidney disease with heart failure and with stage 5 chronic kidney disease, or end stage renal disease; E87.1 Hypo-osmolality and hyponatremia; J98.11 Atelectasis; D63.1 Anemia in chronic kidney disease; Z20.822 Contact with and (suspected) exposure to COVID-19; Z88.8 Allergy status to other drugs, medicaments and biological substances; G89.29 Other chronic pain; Z99.2 Dependence on renal dialysis; E78.5 Hyperlipidemia, unspecified; M19.90 Unspecified osteoarthritis, unspecified site; K21.9 Gastro-esophageal reflux disease without esophagitis; Z83.3 Family history of diabetes mellitus; E11.22 Type 2 diabetes mellitus with diabetic chronic kidney disease; E11.649 Type 2 diabetes mellitus with hypoglycemia without coma; I25.10 Atherosclerotic heart disease of native coronary artery without angina pectoris; Z95.1 Presence of aortocoronary bypass graft; F17.200 Nicotine dependence, unspecified, uncomplicated; Z71.6 Tobacco abuse counseling; D63.8 Anemia in other chronic diseases classified elsewhere; R63.5 Abnormal weight gain; Z68.27 Body mass index [BMI] 27.0-27.9, adult; G40.909 Epilepsy, unspecified, not intractable, without status epilepticus
CPT/HCPCS: 20610; 36415; 73502; 74176; 77002; 80048; 80053; 80069; 81001; 82962; 83605; 85025; 96372; 96374; 99285; J1815; J2270; J3010; Q9967; U0003; 97110-GP; 97530-GP; 97535-GO; G0378

== ENCOUNTER 2020-11-22 02:28 | Inpatient (IN) | payer MEDICARE, OTHER ==
[~2020-11-22] VITALS: Ht 190.5 cm; Wt 106.9 kg
[~2020-11-22 02:28] MED LIST changes: +MORP-15 PO
[2020-11-22] MEDS ORDERED: DEXTROSE 50% 25 GM / 50ML DISP.SYRIN. IV ONE ×4 (02:39→05:45)
[2020-11-22] MEDS ORDERED: NALOXONE 0.4 MG/ML VIAL. ONE (02:44)
[2020-11-22] MEDS ORDERED: NALOXONE 0.4 MG/ML VIAL. IV ONE ×2 (03:00→04:00)
[2020-11-22] MEDS ORDERED: IV NORMAL SALINE 500ML BAG 500 ML IV SCH (03:00)
[2020-11-22 03:08] LABS: BASO % 0 % (0-3); EOS # 0.1 x10^3/uL (0.0-0.7); EOS % 1 % (0-3); HEMATOCRIT 31.3 % (39.0-53.0); HEMOGLOBIN 10.3 g/dL (13.0-17.5); LYMPH # 1.2 x10^3/uL (1.0-4.8); LYMPH % 18 % (24-48); MEAN CORPUSCULAR HEMOGLOBIN 32 pg (25-35); MEAN CORPUSCULAR HGB CONC 33 g/dL (31-37); MEAN CORPUSCULAR VOLUME 96 fL (79-100); MONO # 1.1 x10^3/uL (0.0-1.1); MONO % 17 % (0-9); NEUT # 4.2 x10^3/uL (1.8-7.7); NEUT % 64 % (31-73); PLATELET COUNT 160 x10^3/uL (140-400); RED BLOOD COUNT 3.25 x10^6/uL (4.30-5.70); WHITE BLOOD COUNT 6.6 x10^3/uL (4.0-11.0)
--- NOTE | 2020-11-22 03:08 | PHYS DOC ---
Past Medical History Past Medical History: CHF, Diabetes-Type II, High Cholesterol, Hypertension, CO, Renal Disease Additional Past Medical Histor: chronic back pain Past Surgical History: Other Additional Past Surgical Histo: HERNIA, peritoneal dialysis cath, 5-WAY CARDIAC BYPASS Smoking Status: Current Every Day Smoker Alcohol Use: None Drug Use: None Adult General Chief Complaint Chief Complaint: ALTERED MENTAL STATUS HPI HPI Patient is a 55 year old with an extensive past medical history presenting the emergency department for altered mental status. According to the long term they were evaluating the patient at midnight in order to see if he was missing his normal medications. Stated instead of giving him his pain medications said he was not in pain. Went to check on him an hour later noticed that he was alert and oriented x0. EMS was called and on arrival to see the patient was ANO x2. Noted hypoglycemia to 59. Patient unable to provide history at this time Review of Systems Review of Systems Constitutional: Denies fever or chills [] Eyes: Denies change in visual acuity, redness, or eye pain [] HENT: Denies nasal congestion or sore throat [] Respiratory: Denies cough or shortness of breath [] Cardiovascular: No additional information not addressed in HPI [] GI: Denies abdominal pain, nausea, vomiting, bloody stools or diarrhea [] : Denies dysuria or hematuria [] Musculoskeletal: Denies back pain or joint pain [] Integument: Denies rash or skin lesions [] Neurologic: Denies headache, focal weakness or sensory changes [] Endocrine: Denies polyuria or polydipsia [] All other systems were reviewed and found to be within normal limits, except as documented in this note. Current Medications Current Medications Current Medications Medications (Trade) Dose Ordered Sig/Brittani Start Time Stop Time Status Last Admin Dose Admin Dextrose (Dextrose 50%-Water Syringe) 50 gm 1X ONCE 11/22/20 03:00 11/22/20 03:01 DC 11/22/20 02:40 50 GM Naloxone HCl (Narcan) 0.4 mg 1X ONCE 11/22/20 04:00 11/22/20 04:01 UNV Sodium Chloride 1,000 ml @ 1,000 mls/hr 1X ONCE 11/22/20 04:00 11/22/20 04:59 UNV Allergies Allergies Allergies Coded Allergies Type Severity Reaction Last Updated Verified hydromorphone Allergy Severe Anaphylaxis 06/24/20 Yes Physical Exam Physical Exam Constitutional: Well developed, well nourished, no acute distress, non-toxic appearance. [] HENT: Normocephalic, atraumatic, bilateral external ears normal, oropharynx moist, no oral exudates, nose normal. [] Eyes: pinpoint pupils, EOMI, conjunctiva normal, no discharge. [] Neck: Normal range of motion, no tenderness, supple, no stridor. [] Cardiovascular:Heart rate regular rhythm, no murmur [] Lungs & Thorax: Bilateral breath sounds clear to auscultation [] Abdomen: Bowel sounds normal, soft, no tenderness, no masses, no pulsatile masses. [] Skin: Warm, dry, no erythema, no rash. [] Back: No tenderness, no CVA tenderness. [] Extremities: No tenderness, no cyanosis, no clubbing, ROM intact, no edema. [] Neurologic: Alert and oriented X 0, normal motor function, normal sensory function, no focal deficits noted. [] Psychologic: Affect normal, judgement normal, mood normal. [] Current Patient Data Vital Signs Vital Signs Date Time Temp Pulse Resp B/P (MAP) Pulse Ox O2 Delivery O2 Flow Rate FiO2 11/22/20 02:28 99.2 80 18 144/79 (100) 95 Nasal Cannula 2.0 99.2 Lab Values Laboratory Tests Test 11/22/20 02:35 11/22/20 02:38 Glucose (Fingerstick) 57 mg/dL (70-99) L White Blood Count 6.6 x10^3/uL (4.0-11.0) Red Blood Count 3.25 x10^6/uL (4.30-5.70) L Hemoglobin 10.3 g/dL (13.0-17.5) L Hematocrit 31.3 % (39.0-53.0) L Mean Corpuscular Volume 96 fL (79-100) Mean Corpuscular Hemoglobin 32 pg (25-35) Mean Corpuscular Hemoglobin Concent 33 g/dL (31-37) Red Cell Distribution Width 13.0 % (11.5-14.5) Platelet Count 160 x10^3/uL (140-400) Neutrophils (%) (Auto) 64 % (31-73) Lymphocytes (%) (Auto) 18 % (24-48) L Monocytes (%) (Auto) 17 % (0-9) H Eosinophils (%) (Auto) 1 % (0-3) Basophils (%) (Auto) 0 % (0-3) Neutrophils # (Auto) 4.2 x10^3/uL (1.8-7.7) Lymphocytes # (Auto) 1.2 x10^3/uL (1.0-4.8) Monocytes # (Auto) 1.1 x10^3/uL (0.0-1.1) Eosinophils # (Auto) 0.1 x10^3/uL (0.0-0.7) Basophils # (Auto) 0.0 x10^3/uL (0.0-0.2) Laboratory Tests 11/22/20 02:38 EKG EKG NSR, no ST or T wave changes, normal intervals, no STEMI Radiology/Procedures Radiology/Procedures [] Course & Med Decision Making Course & Med Decision Making Pertinent Labs and Imaging studies reviewed. (See chart for details) 55M initially having for a no x0 and altered mental status. However patient noted to have pinpoint pupils on arrival was unresponsive. Patient was given naltrexone and had immediate improvement of mental status. Patient was noted to be hyperglycemic here as well. I did question the patient after this initial event he states that he last Remmers getting pain medications and then waking up here. Current story most consistent with an acute narcotic medication overdose. There is also significant concern for NSAID overdose. At this time will continue to obtain labs for the patient monitor serial glucose and mental status. 04:07 - On repeat evaluation the patient noted to have decreasing mental status and again unresponsive. Also hypoxic. Patient given another dose of narcan with improvement. Pt however also noted to be persistently hypoglycemic despite getting d50. At this time plan to admit due to concern for insulin and narcotic medication overdose. Dragon Disclaimer Dragon Disclaimer This electronic medical record was generated, in whole or in part, using a voice recognition dictation system. Departure Departure Impression: Primary Impression: Hypoglycemia Additional Impression: Altered mental status Disposition: 09 ADMITTED INPT THIS HOSP Condition: GUARDED Referrals: UNKNOWN PCP NAME (PCP) Problem Qualifiers PEG REA MD Nov 22, 2020 03:08
--- NOTE | 2020-11-22 03:14 | RAD ---
EXAM: XR CHEST 1V 11/22/2020 2:50 AM CLINICAL INDICATION: Syncope, altered mental status COMPARISON: Chest radiograph 10/06/2020 TECHNIQUE: AP upright view of the chest FINDINGS: There is cardiomegaly and changes of median sternotomy. There is new mild diffuse intersti tial opacities with focal airspace opacities in the right upper lobe. Slightly increased bandlike opa cities in the left lung base. No pleural effusion or pneumothorax. No acute osseous abnormality. IMPRESSION: Cardiomegaly with new interstitial opacities and focal right upper lobe airspace opacities. Findings may reflect pulmonary edema or multifocal infection. Slightly increased bandlike opacities in the left lung base, likely atelectasis. Electronically signed by: Maryjane Reno MD (11/22/2020 3:12 AM) [id number]
[2020-11-22 03:30] LABS: CALCIUM 8.2 mg/dL (8.5-10.1); CREATININE 4.8 mg/dL (0.7-1.3); GFR 12.8; POTASSIUM 4.1 mmol/L (3.5-5.1)
[2020-11-22] MEDS ORDERED: IV NORMAL SALINE 500ML BAG 500 ML IV ONE (04:00)
[2020-11-22] MEDS ORDERED: ONDANSETRON PF 4 MG/2 ML VIAL. IV PRN (04:15)
[2020-11-22] MEDS ORDERED: IV NORMAL SALINE 1000ML BAG 1,000 ML IV ONE (04:15)
[2020-11-22] MEDS ORDERED: IV DEXTROSE 5 %-0.45 % NACL 1,000 ML IV ONE (04:15)
--- NOTE | 2020-11-22 04:36 | RAD ---
EXAM: CT head without contrast INDICATION: Altered mental status COMPARISON: CT head 09/02/2020 TECHNIQUE: Axial CT imaging through the head without intravenous contrast. Coronal reformats were obt ained. One or more of the following individualized dose reduction techniques were utilized for this examinat ion: 1. Automated exposure control 2. Adjustment of the mA and/or kV according to patient size 3. Use of iterative reconstruction technique. FINDINGS: There is motion artifact limiting the exam. No definite intracranial hemorrhage, acute infarct, or ma ss lesion. Ventricles and sulci are mildly enlarged. There is mild periventricular white matter hypoa ttenuation. No definite fracture. Evaluation of facial bones is limited by motion. Paranasal sinuses and mastoid air cells are clear. Globes and orbits are intact. IMPRESSION: Limited exam due to motion artifact. No definite acute intracranial abnormality. Electronically signed by: Maryjane Reno MD (11/22/2020 4:34 AM) [id number]
--- NOTE | 2020-11-22 05:32 | NUR ---
Pt. just arrived from ED via bed w/ AMS and Hypoglycemia. He is alert to self only, sweaty and shaky. Cannot make needs known.
[2020-11-22] MEDS ORDERED: NALOXONE 0.4 MG/ML VIAL. IV PRN (07:00)
--- NOTE | 2020-11-22 07:05 | PDOC1 ---
History and Physical Date of Admission Date of Admission DATE: 11/22/20 TIME: 06:36 Identification/Chief Complaint Chief Complaint Altered mental status Source Source: Chart review History of Present Illness History of Present Illness Patient is a 55-year-old male with extensive past medical history including DM2, ESRD on HD Tuesday/Tuesday/Tuesday, who [facility] due to concerns of altered mental status. He was evaluated earlier this morning by [facility] staff and noted to be unresponsive and hypoglycemic with blood sugar 59. He was given oral glucose by staff and blood sugar came up to 89. Upon arrival in the ED, pinpoint pupils were noted and he was given naltrexone x2 with improvement in mental status, however he was noted to be hypoxic as well. He did remain persistently hypoglycemic despite treatment with D50. Will admit patient for further medical management. Past Medical History Cardiovascular: CAD, CHF, HTN, Hyperlipidemia, Other Pulmonary: Bronchitis, Pulmonary embolus, Pneumonia, Other CENTRAL NERVOUS SYSTEM: CVA, Periperal neuropathy, Other GI: GERD, Other Heme/Onc: Cancer Psych: Depression Renal/: Chronic renal failure Endocrine: Diabetes, Hyperparathyroidism Past Surgical History Past Surgical History: Cholecystectomy, CABG, Tonsillectomy, Other Family History Family History: High Cholestrol, Hypertension, Kidney Disease Social History Smoke: <1 pack per day ALCOHOL: none Drugs: Other Current Problem List Problem List Problems Medical Problems: (1) Altered mental status Status: Acute (2) Hypoglycemia Status: Acute Current Medications Current Medications Current Medications Dextrose (Dextrose 50%-Water Syringe) 25 gm STK-MED ONCE IV ; Start 11/22/20 at 02:39; Stop 11/22/20 at 02:39; Status DC Naloxone HCl (Narcan) 0.4 mg STK-MED ONCE .ROUTE ; Start 11/22/20 at 02:44; Stop 11/22/20 at 02:45; Status DC Sodium Chloride 500 ml @ 500 mls/hr Q1H IV ; Start 11/22/20 at 03:00; Stop 11/22/20 at 03:55; Status DC Naloxone HCl (Narcan) 0.4 mg 1X ONCE IV Last administered on 11/22/20at 02:46; Start 11/22/20 at 03:00; Stop 11/22/20 at 03:01; Status DC Dextrose (Dextrose 50%-Water Syringe) 50 gm 1X ONCE IV Last administered on 11/22/20at 02:40; Start 11/22/20 at 03:00; Stop 11/22/20 at 03:01; Status DC Sodium Chloride 500 ml @ 500 mls/hr Q1H ONCE IV Last administered on 11/22/20at 03:02; Start 11/22/20 at 04:00; Stop 11/22/20 at 04:59; Status DC Naloxone HCl (Narcan) 0.4 mg 1X ONCE IV Last administered on 11/22/20at 04:00; Start 11/22/20 at 04:00; Stop 11/22/20 at 04:20; Status DC Sodium Chloride 1,000 ml @ 1,000 mls/hr 1X ONCE IV ; Start 11/22/20 at 04:15; Stop 11/22/20 at 05:14; Status DC Dextrose/Sodium Chloride 1,000 ml @ 100 mls/hr 1X ONCE IV Last administered on 11/22/20at 04:10; Start 11/22/20 at 04:15; Stop 11/22/20 at 14:14 Ondansetron HCl (Zofran) 4 mg PRN Q8HRS PRN IV NAUSEA/VOMITING; Start 11/22/20 at 04:15; Stop 11/23/20 at 04:14 Dextrose (Dextrose 50%-Water Syringe) 50 gm 1X ONCE IV ; Start 11/22/20 at 05:45; Stop 11/22/20 at 05:46; Status DC Dextrose (Dextrose 50%-Water Syringe) 25 gm 1X ONCE IV Last administered on 11/22/20at 04:51; Start 11/22/20 at 05:45; Stop 11/22/20 at 05:47; Status DC Active Scripts Active Morphine Sulfate Er (Morphine Sulfate) 15 Mg Tablet.er 1 Tab PO TID 6 Days Percocet 10-325 Mg Tablet (Oxycodone/Acetaminophen) 1 Each Tablet 1 Tab PO QIDPRN PRN MDD 4 Tablet(s) 6 Days Tylenol (Acetaminophen) 325 Mg Tablet 650 Mg PO PRN Q6HRS PRN 14 Days Carvedilol (Carvedilol) 12.5 Mg Tablet 25 Mg PO BIDWMEALS 30 Days Hydralazine Hcl 50 Mg Tablet 50 Mg PO BID 30 Days Atorvastatin Calcium 40 Mg Tablet 40 Mg PO QHS 30 Days Gabapentin (Gabapentin) 100 Mg Capsule 100 Mg PO TID 30 Days [Diclofenac Sodium] 100 GM Gel..gram. 1 Christo TP BID 30 Days Reported Tresiba (Insulin Degludec) 100 Unit/1 Ml Vial 42 Unit SQ HS Ranexa (Ranolazine) 500 Mg Tab.er.12h 500 Mg PO BID Renal-Irvin Tablet (Folic Acid/Vit Bcomp,C) 0.8 Mg Tablet 0.8 Mg PO DAILY Novolog (Insulin Aspart) 100 Unit/1 Ml Vial 0 SQ PRN TID PRN Lisinopril 20 Mg Tablet 20 Mg PO DAILY Zofran (Ondansetron Hcl) 4 Mg Tablet 1 Tab PO PRN Q4HRS PRN NITROGLYCERIN SubLingual (Nitroglycerin) 0.4 Mg Tab.subl 0.4 Mg SL PRN Q5MIN PRN Citalopram Hbr (Citalopram Hydrobromide) 40 Mg Tablet 40 Mg PO HS Protonix (Pantoprazole Sodium) 20 Mg Tablet.dr 40 Mg PO DAILY Docusate Sodium 100 Mg Capsule 1 Cap PO DAILY Divalproex Sodium 500 Mg Tablet.dr 2 Tab PO BID Aspirin 81 Mg Tab.chew 1 Tab PO DAILY Amitiza (Lubiprostone) 24 Mcg Capsule 1 Cap PO DAILY Norvasc (Amlodipine Besylate) 10 Mg Tablet 10 Mg PO DAILY Renvela (Sevelamer Carbonate) 800 Mg Tablet 800 Mg PO TIDWMEALS Allergies Allergies: Coded Allergies: hydromorphone (Verified Allergy, Severe, Anaphylaxis, 06/24/20) morphine ok ROS Review of System Unable to obtain due to clinical condition Physical Exam Physical Exam General: Alert, Oriented X3, Cooperative, No acute distress HEENT: PERRLA, EOMI Lungs: Clear to auscultation, Normal air movement Heart: RRR, no murmurs Cardiovascular: S1, S2 Abdomen: Normal bowel sounds, Soft, No tenderness Extremities: No clubbing, No cyanosis Skin: No rashes, No significant lesion Neuro: Normal speech, Normal tone, Sensation intact Psych/Mental Status: Mental status NL, Mood NL Vitals Vitals Vital Signs Date Time Temp Pulse Resp B/P (MAP) Pulse Ox O2 Delivery O2 Flow Rate FiO2 11/22/20 04:46 82 17 98 11/22/20 02:28 99.2 144/79 (100) Nasal Cannula 2.0 99.2 Labs Labs Laboratory Tests Test 11/22/20 02:35 11/22/20 02:38 11/22/20 03:00 11/22/20 03:50 Glucose (Fingerstick) 57 mg/dL (70-99) 136 mg/dL (70-99) 88 mg/dL (70-99) White Blood Count 6.6 x10^3/uL (4.0-11.0) Red Blood Count 3.25 x10^6/uL (4.30-5.70) Hemoglobin 10.3 g/dL (13.0-17.5) Hematocrit 31.3 % (39.0-53.0) Mean Corpuscular Volume 96 fL (79-100) Mean Corpuscular Hemoglobin 32 pg (25-35) Mean Corpuscular Hemoglobin Concent 33 g/dL (31-37) Red Cell Distribution Width 13.0 % (11.5-14.5) Platelet Count 160 x10^3/uL (140-400) Neutrophils (%) (Auto) 64 % (31-73) Lymphocytes (%) (Auto) 18 % (24-48) Monocytes (%) (Auto) 17 % (0-9) Eosinophils (%) (Auto) 1 % (0-3) Basophils (%) (Auto) 0 % (0-3) Neutrophils # (Auto) 4.2 x10^3/uL (1.8-7.7) Lymphocytes # (Auto) 1.2 x10^3/uL (1.0-4.8) Monocytes # (Auto) 1.1 x10^3/uL (0.0-1.1) Eosinophils # (Auto) 0.1 x10^3/uL (0.0-0.7) Basophils # (Auto) 0.0 x10^3/uL (0.0-0.2) Sodium Level 137 mmol/L (136-145) Potassium Level 4.1 mmol/L (3.5-5.1) Chloride Level 99 mmol/L (98-107) Carbon Dioxide Level 29 mmol/L (21-32) Anion Gap 9 (6-14) Blood Urea Nitrogen 20 mg/dL (8-26) Creatinine 4.8 mg/dL (0.7-1.3) Estimated GFR (Cockcroft-Gault) 12.8 Glucose Level 60 mg/dL (70-99) Lactic Acid Level 0.3 mmol/L (0.4-2.0) Calcium Level 8.2 mg/dL (8.5-10.1) Magnesium Level 2.0 mg/dL (1.8-2.4) Troponin I Quantitative 0.026 ng/mL (0.000-0.055) Test 11/22/20 04:03 11/22/20 04:48 Glucose (Fingerstick) 76 mg/dL (70-99) 61 mg/dL (70-99) Laboratory Tests Test 11/22/20 02:35 11/22/20 02:38 11/22/20 03:00 11/22/20 03:50 Glucose (Fingerstick) 57 mg/dL (70-99) 136 mg/dL (70-99) 88 mg/dL (70-99) White Blood Count 6.6 x10^3/uL (4.0-11.0) Red Blood Count 3.25 x10^6/uL (4.30-5.70) Hemoglobin 10.3 g/dL (13.0-17.5) Hematocrit 31.3 % (39.0-53.0) Mean Corpuscular Volume 96 fL (79-100) Mean Corpuscular Hemoglobin 32 pg (25-35) Mean Corpuscular Hemoglobin Concent 33 g/dL (31-37) Red Cell Distribution Width 13.0 % (11.5-14.5) Platelet Count 160 x10^3/uL (140-400) Neutrophils (%) (Auto) 64 % (31-73) Lymphocytes (%) (Auto) 18 % (24-48) Monocytes (%) (Auto) 17 % (0-9) Eosinophils (%) (Auto) 1 % (0-3) Basophils (%) (Auto) 0 % (0-3) Neutrophils # (Auto) 4.2 x10^3/uL (1.8-7.7) Lymphocytes # (Auto) 1.2 x10^3/uL (1.0-4.8) Monocytes # (Auto) 1.1 x10^3/uL (0.0-1.1) Eosinophils # (Auto) 0.1 x10^3/uL (0.0-0.7) Basophils # (Auto) 0.0 x10^3/uL (0.0-0.2) Sodium Level 137 mmol/L (136-145) Potassium Level 4.1 mmol/L (3.5-5.1) Chloride Level 99 mmol/L (98-107) Carbon Dioxide Level 29 mmol/L (21-32) Anion Gap 9 (6-14) Blood Urea Nitrogen 20 mg/dL (8-26) Creatinine 4.8 mg/dL (0.7-1.3) Estimated GFR (Cockcroft-Gault) 12.8 Glucose Level 60 mg/dL (70-99) Lactic Acid Level 0.3 mmol/L (0.4-2.0) Calcium Level 8.2 mg/dL (8.5-10.1) Magnesium Level 2.0 mg/dL (1.8-2.4) Troponin I Quantitative 0.026 ng/mL (0.000-0.055) Test 11/22/20 04:03 11/22/20 04:48 Glucose (Fingerstick) 76 mg/dL (70-99) 61 mg/dL (70-99) VTE Prophylaxis Ordered VTE Prophylaxis Devices: No VTE Pharmacological Prophylaxi: Yes Assessment/Plan Assessment/Plan Acute toxic encephalopathy Acute narcotic medication overdose Acute hypoglycemia ESRD on HD Plan: Serial glucose and mental status monitoring Narcan as needed, D50 as needed We will hold home insulin at this time, goal blood glucose [id number] Will consult nephrology for continuation of HD if he is unable to return to his [facility] by Tuesday Patient was recently discharged from our service on 11/19 with Morphine 15 mg 3 times daily. Upon discharge patient should have his narcotic medication changed to fentanyl patch and tramadol 100 mg every 6 as needed. Hold narcotics the patient is alert and oriented enough to request. Resume home medications FEN - ADA diet PPX - Heparin FULL CODE Dispo - inpatient for above Justifications for Admission Other Justification MO NAM MD Nov 22, 2020 07:05
[2020-11-22] MEDS ORDERED: DEXTROSE 50% 25 GM / 50ML DISP.SYRIN. IV PRN (07:15)
[2020-11-22] MEDS ORDERED: ACETAMINOPHEN 325 MG TABLET. PO PRN ×2 (07:30→08:00)
[2020-11-22] MEDS ORDERED: NITROGLYCERIN SUBLINGUAL 0.4 MG BOTTLE OF 25. SL PRN (07:30)
[2020-11-22 07:59] VITALS: BP 171/91
[2020-11-22] MEDS: INSULIN LISPRO 300 UNITS/3 ML VIAL. SQ SCH ×3 (08:00→17:52)
[2020-11-22] MEDS ORDERED: MAG HYDROX/ALUMINUM HYD/SIMETH 30 ML ORAL.SUSP PO PRN (08:00)
[2020-11-22] MEDS: HEPARIN for SUB-Q USE 5,000 UNIT/ML VIAL. SQ SCH ×3 (08:45→21:14)
[2020-11-22] MEDS: RANOLAZINE 500 MG TAB.ER.12H PO SCH ×2 (10:24→21:03)
[2020-11-22] MEDS: CARVEDILOL 12.5 MG TABLET. PO SCH ×2 (10:24→16:56)
[2020-11-22] MEDS: ASPIRIN CHEWABLE 81 MG TABLET. PO SCH (10:25)
[2020-11-22] MEDS: DIVALPROEX DELAYED RELEASE 500 MG TABLET.DR. PO SCH ×2 (10:25→21:04)
[2020-11-22] MEDS: GABAPENTIN 100 MG CAPSULE. PO SCH ×3 (10:25→21:03)
[2020-11-22] MEDS: DOCUSATE SODIUM 100 MG CAPSULE. PO SCH (10:25)
[2020-11-22] MEDS: LUBIPROSTONE 24 MCG CAPSULE PO SCH (10:25)
[2020-11-22] MEDS: LISINOPRIL 20 MG TABLET PO SCH (10:26)
[2020-11-22] MEDS: SEVELAMER CARBONATE 800 MG TABLET. PO SCH ×3 (10:27→16:56)
[2020-11-22] MEDS: fentaNYL 75MCG/HR PATCH 1 PATCH PATCH.TD72 TD SCH (11:25)
[2020-11-22 11:59] VITALS: BP 133/49
[2020-11-22] MEDS: traMADol 50 MG TABLET PO PRN ×2 (12:27→19:24)
--- NOTE | 2020-11-22 14:54 | PDOC2 ---
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 He has an extensive past medical history including DM2, ESRD on HD Tuesday/Tuesday/Tuesday under the care of Dr. Hernandez and dialyzes at [facility]. He presented [facility] a transfer [facility] due to concerns of altered mental status. At the nursing facility he was noted to be unresponsive and hypoglycemic with blood sugar 59 as reported in the HPI. Hypoglycemia was attempted to be u addressed at his facility however he continued to have altered mental status and was noted to have pinpoint pupils in the ER and he was given naltrexone x2 with improvement in mental status, however he was noted to be hypoxic as well. He did remain persistently hypoglycemic despite treatment with D50. And hence was admitted to the hospital for pe rsistent hyperglycemia. He claims he has not missed any dialysis treatments. He claims he goes on a regular Tuesday basis. He is currently at a local nursing facility for rehabilitation and strengthening by his reports. Past Medical History Cardiovascular: CAD, CHF, HTN, Hyperlipidemia, Other Pulmonary: Bronchitis, Pulmonary embolus, Pneumonia, Other CENTRAL NERVOUS SYSTEM: CVA, Periperal neuropathy, Other GI: GERD, Other Heme/Onc: Cancer Psych: Depression Renal/: Chronic renal failure Endocrine: Diabetes, Hyperparathyroidism Past Surgical History Past Surgical History: Cholecystectomy, CABG, Tonsillectomy, Other Family History Family History: High Cholestrol, Hypertension, Kidney Disease Social History <1 pack per day ALCOHOL: none Drugs: Other Lives: with Family Current Problem List Problem List Problems Medical Problems: (1) Altered mental status Status: Acute (2) Hypoglycemia Status: Acute Current Medications Current Medications Current Medications Dextrose (Dextrose 50%-Water Syringe) 25 gm STK-MED ONCE IV ; Start 11/22/20 at 02:39; Stop 11/22/20 at 02:39; Status DC Naloxone HCl (Narcan) 0.4 mg STK-MED ONCE .ROUTE ; Start 11/22/20 at 02:44; Stop 11/22/20 at 02:45; Status DC Sodium Chloride 500 ml @ 500 mls/hr Q1H IV ; Start 11/22/20 at 03:00; Stop 11/22/20 at 03:55; Status DC Naloxone HCl (Narcan) 0.4 mg 1X ONCE IV Last administered on 11/22/20at 02:46; Start 11/22/20 at 03:00; Stop 11/22/20 at 03:01; Status DC Dextrose (Dextrose 50%-Water Syringe) 50 gm 1X ONCE IV Last administered on 11/22/20at 02:40; Start 11/22/20 at 03:00; Stop 11/22/20 at 03:01; Status DC Sodium Chloride 500 ml @ 500 mls/hr Q1H ONCE IV Last administered on 11/22/20at 03:02; Start 11/22/20 at 04:00; Stop 11/22/20 at 04:59; Status DC Naloxone HCl (Narcan) 0.4 mg 1X ONCE IV Last administered on 11/22/20at 04:00; Start 11/22/20 at 04:00; Stop 11/22/20 at 04:20; Status DC Sodium Chloride 1,000 ml @ 1,000 mls/hr 1X ONCE IV ; Start 11/22/20 at 04:15; Stop 11/22/20 at 05:14; Status DC Dextrose/Sodium Chloride 1,000 ml @ 100 mls/hr 1X ONCE IV Last administered on 11/22/20at 04:10; Start 11/22/20 at 04:15; Stop 11/22/20 at 14:14; Status DC Ondansetron HCl (Zofran) 4 mg PRN Q8HRS PRN IV NAUSEA/VOMITING; Start 11/22/20 at 04:15; Stop 11/23/20 at 04:14 Dextrose (Dextrose 50%-Water Syringe) 50 gm 1X ONCE IV ; Start 11/22/20 at 05:45; Stop 11/22/20 at 05:46; Status DC Dextrose (Dextrose 50%-Water Syringe) 25 gm 1X ONCE IV Last administered on 11/22/20at 04:51; Start 11/22/20 at 05:45; Stop 11/22/20 at 05:47; Status DC Naloxone HCl (Narcan) 0.4 mg PRN Q2MIN PRN IV SEE COMMENTS; Start 11/22/20 at 07:00 Insulin Human Lispro (HumaLOG) 0-9 UNITS TIDWMEALS SQ ; Start 11/22/20 at 08:00 Dextrose (Dextrose 50%-Water Syringe) 12.5 gm PRN Q15MIN PRN IV SEE COMMENTS; Start 11/22/20 at 07:15 Acetaminophen (Tylenol) 650 mg PRN Q6HRS PRN PO Headaches, Temp > 101.5F; Start 11/22/20 at 07:30 Amlodipine Besylate (Norvasc) 10 mg DAILY PO Last administered on 11/22/20at 10:25; Start 11/22/20 at 09:00 Aspirin (Aspirin Chewable) 81 mg DAILY PO Last administered on 11/22/20at 10:25; Start 11/22/20 at 09:00 Atorvastatin Calcium (Lipitor) 40 mg QHS PO ; Start 11/22/20 at 21:00 Carvedilol (Coreg) 25 mg BIDWMEALS PO Last administered on 11/22/20at 10:24; Start 11/22/20 at 08:00 Divalproex Sodium (Depakote) 1,000 mg BID PO Last administered on 11/22/20at 10:25; Start 11/22/20 at 09:00 Docusate Sodium (Colace) 100 mg DAILY PO Last administered on 11/22/20at 10:25; Start 11/22/20 at 09:00 Gabapentin (Neurontin) 100 mg TID PO Last administered on 11/22/20at 13:58; Start 11/22/20 at 09:00 Hydralazine HCl (Apresoline) 50 mg BID PO Last administered on 11/22/20at 10:25; Start 11/22/20 at 09:00 Lisinopril (Prinivil) 20 mg DAILY PO Last administered on 11/22/20at 10:26; Start 11/22/20 at 09:00 Lubiprostone (Amitiza) 24 mcg DAILYAC PO Last administered on 11/22/20at 10:25; Start 11/22/20 at 08:00 Nitroglycerin (Nitrostat) 0.4 mg PRN Q5MIN PRN SL CHEST PAIN; Start 11/22/20 at 07:30 Ranolazine (Ranexa) 500 mg BID PO Last administered on 11/22/20at 10:24; Start 11/22/20 at 09:00 Sevelamer Carbonate (Renvela) 800 mg TIDWMEALS PO Last administered on 11/22/20at 12:25; Start 11/22/20 at 08:00 Tramadol HCl (Ultram) 100 mg PRN Q6HRS PRN PO PAIN Last administered on 1at 12:27; Start 11/22/20 at 07:45 Fentanyl (Duragesic 75mcg/ Hr Patch) 1 patch Q3DAYS TD Last administered on 11/22/20at 11:25; Start 11/22/20 at 09:00 Ondansetron HCl (Zofran) 4 mg PRN Q6HRS PRN IVP NAUSEA/VOMITING; Start 11/22/20 at 08:00 Al Hydroxide/Mg Hydroxide (Mylanta Plus Xs) 30 ml PRN Q3HRS PRN PO HEARTBURN / GAS; Start 11/22/20 at 08:00 Calcium Carbonate/ Glycine (Tums) 500 mg PRN Q3HRS PRN PO UPSET STOMACH; Start 11/22/20 at 08:00 Acetaminophen (Tylenol) 650 mg PRN Q6HRS PRN PO Headaches, Temp > 101.5F; Start 11/22/20 at 08:00 Heparin Sodium (Porcine) (Heparin Sodium) 5,000 unit Q8HRS SQ Last administered on 11/22/20at 14:01; Start 11/22/20 at 08:00 Active Scripts Active Morphine Sulfate Er (Morphine Sulfate) 15 Mg Tablet.er 1 Tab PO TID 6 Days Percocet 10-325 Mg Tablet (Oxycodone/Acetaminophen) 1 Each Tablet 1 Tab PO QIDPRN PRN MDD 4 Tablet(s) 6 Days Tylenol (Acetaminophen) 325 Mg Tablet 650 Mg PO PRN Q6HRS PRN 14 Days Carvedilol (Carvedilol) 12.5 Mg Tablet 25 Mg PO BIDWMEALS 30 Days Hydralazine Hcl 50 Mg Tablet 50 Mg PO BID 30 Days Atorvastatin Calcium 40 Mg Tablet 40 Mg PO QHS 30 Days Gabapentin (Gabapentin) 100 Mg Capsule 100 Mg PO TID 30 Days [Diclofenac Sodium] 100 GM Gel..gram. 1 Christo TP BID 30 Days Reported Tresiba (Insulin Degludec) 100 Unit/1 Ml Vial 42 Unit SQ HS Ranexa (Ranolazine) 500 Mg Tab.er.12h 500 Mg PO BID Renal-Irvin Tablet (Folic Acid/Vit Bcomp,C) 0.8 Mg Tablet 0.8 Mg PO DAILY Novolog (Insulin Aspart) 100 Unit/1 Ml Vial 0 SQ PRN TID PRN Lisinopril 20 Mg Tablet 20 Mg PO DAILY Zofran (Ondansetron Hcl) 4 Mg Tablet 1 Tab PO PRN Q4HRS PRN NITROGLYCERIN SubLingual (Nitroglycerin) 0.4 Mg Tab.subl 0.4 Mg SL PRN Q5MIN PRN Citalopram Hbr (Citalopram Hydrobromide) 40 Mg Tablet 40 Mg PO HS Protonix (Pantoprazole Sodium) 20 Mg Tablet.dr 40 Mg PO DAILY Docusate Sodium 100 Mg Capsule 1 Cap PO DAILY Divalproex Sodium 500 Mg Tablet.dr 2 Tab PO BID Aspirin 81 Mg Tab.chew 1 Tab PO DAILY Amitiza (Lubiprostone) 24 Mcg Capsule 1 Cap PO DAILY Norvasc (Amlodipine Besylate) 10 Mg Tablet 10 Mg PO DAILY Renvela (Sevelamer Carbonate) 800 Mg Tablet 800 Mg PO TIDWMEALS Allergies Allergies: Coded Allergies: hydromorphone (Verified Allergy, Severe, Anaphylaxis, 06/24/20) morphine ok ROS Review of System Negative x14 other than as reviewed above Physical Exam Physical Exam General Appearance: Awake Alert Oriented x 2-3 In no Distress Eyes: VIsion Unchanged Conjunctiva Normal EN: No EN Drainage Mucous Memb. oist Neck: no JVD no JVP Supple no Thyromegaly CVS: S1 S2 no Murmur No Gallop No Rub no Edema Resp: no Rales no Rhonchi no Acc. Muscle use GI: BAS +ve NO Bruit Non Tender Non Distended : no CVA tenderness; no Suprapubic Tenderness SKIN: no Rashes Breast Exam deferred Mu.Sk: Adequate ROM no Muscle Atrophy Heme: Unable to palpate Obvious LAD no Splenomegaly NEURO: Good Strength and Tone Cranial Nerves II - XII grossly intact Psych: not Depressed no Active hallucination Vital Signs Vital Signs Date Time Temp Pulse Resp B/P (MAP) Pulse Ox O2 Delivery O2 Flow Rate FiO2 11/22/20 13:57 Room Air 11/22/20 11:59 98.1 77 20 133/49 (77) 95 2.0 98.1 Assessment & Plan ESRD: Current FLuid and E-lyte status does not necessitate emergent need for Dialysis. Will re-evaluate for Dialysis in am and continue on MWF schedule. Anemia: Will start Epogen if hemoglobin trends below 10. Transfuse with next HD as needed. HTN: Current BP meds reviewed. See orders for changes. Bone & Mineral: Follow phosphorus and alter binder regimen as needed based on oral intake Opioid intoxication: Appears to have almost completely resolved from the same. Abnormal chest x-ray: Patient clinically appears to be well compensated at this time and hence urgent dialysis was not ordered. Labs Labs Laboratory Tests Test 11/22/20 02:35 11/22/20 02:38 11/22/20 03:00 11/22/20 03:50 Glucose (Fingerstick) 57 mg/dL (70-99) 136 mg/dL (70-99) 88 mg/dL (70-99) White Blood Count 6.6 x10^3/uL (4.0-11.0) Red Blood Count 3.25 x10^6/uL (4.30-5.70) Hemoglobin 10.3 g/dL (13.0-17.5) Hematocrit 31.3 % (39.0-53.0) Mean Corpuscular Volume 96 fL (79-100) Mean Corpuscular Hemoglobin 32 pg (25-35) Mean Corpuscular Hemoglobin Concent 33 g/dL (31-37) Red Cell Distribution Width 13.0 % (11.5-14.5) Platelet Count 160 x10^3/uL (140-400) Neutrophils (%) (Auto) 64 % (31-73) Lymphocytes (%) (Auto) 18 % (24-48) Monocytes (%) (Auto) 17 % (0-9) Eosinophils (%) (Auto) 1 % (0-3) Basophils (%) (Auto) 0 % (0-3) Neutrophils # (Auto) 4.2 x10^3/uL (1.8-7.7) Lymphocytes # (Auto) 1.2 x10^3/uL (1.0-4.8) Monocytes # (Auto) 1.1 x10^3/uL (0.0-1.1) Eosinophils # (Auto) 0.1 x10^3/uL (0.0-0.7) Basophils # (Auto) 0.0 x10^3/uL (0.0-0.2) Sodium Level 137 mmol/L (136-145) Potassium Level 4.1 mmol/L (3.5-5.1) Chloride Level 99 mmol/L (98-107) Carbon Dioxide Level 29 mmol/L (21-32) Anion Gap 9 (6-14) Blood Urea Nitrogen 20 mg/dL (8-26) Creatinine 4.8 mg/dL (0.7-1.3) Estimated GFR (Cockcroft-Gault) 12.8 Glucose Level 60 mg/dL (70-99) Lactic Acid Level 0.3 mmol/L (0.4-2.0) Calcium Level 8.2 mg/dL (8.5-10.1) Magnesium Level 2.0 mg/dL (1.8-2.4) Troponin I Quantitative 0.026 ng/mL (0.000-0.055) Test 11/22/20 04:03 11/22/20 04:48 11/22/20 08:02 11/22/20 12:06 Glucose (Fingerstick) 76 mg/dL (70-99) 61 mg/dL (70-99) 94 mg/dL (70-99) 99 mg/dL (70-99) Laboratory Tests Test 11/22/20 02:35 11/22/20 02:38 11/22/20 03:00 11/22/20 03:50 Glucose (Fingerstick) 57 mg/dL (70-99) 136 mg/dL (70-99) 88 mg/dL (70-99) White Blood Count 6.6 x10^3/uL (4.0-11.0) Red Blood Count 3.25 x10^6/uL (4.30-5.70) Hemoglobin 10.3 g/dL (13.0-17.5) Hematocrit 31.3 % (39.0-53.0) Mean Corpuscular Volume 96 fL (79-100) Mean Corpuscular Hemoglobin 32 pg (25-35) Mean Corpuscular Hemoglobin Concent 33 g/dL (31-37) Red Cell Distribution Width 13.0 % (11.5-14.5) Platelet Count 160 x10^3/uL (140-400) Neutrophils (%) (Auto) 64 % (31-73) Lymphocytes (%) (Auto) 18 % (24-48) Monocytes (%) (Auto) 17 % (0-9) Eosinophils (%) (Auto) 1 % (0-3) Basophils (%) (Auto) 0 % (0-3) Neutrophils # (Auto) 4.2 x10^3/uL (1.8-7.7) Lymphocytes # (Auto) 1.2 x10^3/uL (1.0-4.8) Monocytes # (Auto) 1.1 x10^3/uL (0.0-1.1) Eosinophils # (Auto) 0.1 x10^3/uL (0.0-0.7) Basophils # (Auto) 0.0 x10^3/uL (0.0-0.2) Sodium Level 137 mmol/L (136-145) Potassium Level 4.1 mmol/L (3.5-5.1) Chloride Level 99 mmol/L (98-107) Carbon Dioxide Level 29 mmol/L (21-32) Anion Gap 9 (6-14) Blood Urea Nitrogen 20 mg/dL (8-26) Creatinine 4.8 mg/dL (0.7-1.3) Estimated GFR (Cockcroft-Gault) 12.8 Glucose Level 60 mg/dL (70-99) Lactic Acid Level 0.3 mmol/L (0.4-2.0) Calcium Level 8.2 mg/dL (8.5-10.1) Magnesium Level 2.0 mg/dL (1.8-2.4) Troponin I Quantitative 0.026 ng/mL (0.000-0.055) Test 11/22/20 04:03 11/22/20 04:48 11/22/20 08:02 11/22/20 12:06 Glucose (Fingerstick) 76 mg/dL (70-99) 61 mg/dL (70-99) 94 mg/dL (70-99) 99 mg/dL (70-99) Review All relevant outside records, renal labs, imaging studies, telemetry/EKG's were reviewed. Images Images Chest x-ray from admit IMPRESSION: Cardiomegaly with new interstitial opacities and focal right upper lobe airspace opacities. Findings may reflect pulmonary edema or multifocal infection. Slightly increased bandlike opacities in the left lung base, likely atelectasis. GLO URIAS MD Nov 22, 2020 14:54
[2020-11-22 15:59] VITALS: BP 136/71
[2020-11-22] MEDS: CALCIUM CARBONATE 500 MG TAB.CHEW PO PRN ×2 (16:48→19:24)
[2020-11-22] MEDS: PANTOPRAZOLE 40 MG TABLET.DR. PO SCH (18:42)
[2020-11-22 19:00] VITALS: BP 131/67
[2020-11-22] MEDS: ONDANSETRON PF 4 MG/2 ML VIAL. IVP PRN (19:25)
[2020-11-22] MEDS: ATORVASTATIN CALCIUM 40 MG TABLET. PO SCH (21:04)
[2020-11-22 23:06] VITALS: BP 160/84
[2020-11-23 03:07] VITALS: BP 164/69
[2020-11-23] MEDS: HEPARIN for SUB-Q USE 5,000 UNIT/ML VIAL. SQ SCH ×3 (05:29→20:37)
[2020-11-23 07:59] VITALS: BP 110/49
[2020-11-23] MEDS ORDERED: MAGNESIUM SULFATE 2GM 50 ML IV PRN (08:45)
[2020-11-23 08:51] LABS: BASO % 0 % (0-3); EOS # 0.2 x10^3/uL (0.0-0.7); EOS % 3 % (0-3); HEMATOCRIT 26.7 % (39.0-53.0); HEMOGLOBIN 8.7 g/dL (13.0-17.5); LYMPH # 1.8 x10^3/uL (1.0-4.8); LYMPH % 28 % (24-48); MEAN CORPUSCULAR HEMOGLOBIN 32 pg (25-35); MEAN CORPUSCULAR HGB CONC 33 g/dL (31-37); MEAN CORPUSCULAR VOLUME 98 fL (79-100); MONO # 0.9 x10^3/uL (0.0-1.1); MONO % 15 % (0-9); NEUT # 3.4 x10^3/uL (1.8-7.7); NEUT % 54 % (31-73); PLATELET COUNT 145 x10^3/uL (140-400); RED BLOOD COUNT 2.72 x10^6/uL (4.30-5.70); WHITE BLOOD COUNT 6.4 x10^3/uL (4.0-11.0)
--- NOTE | 2020-11-23 08:52 | PDOC ---
[facility] PROGRESS NOTE Date of Service DOS: DATE: 11/23/20 TIME: 08:47 Chief Complaint Chief Complaint Acute toxic encephalopathy Acute narcotic medication overdose Acute hypoglycemia ESRD on HD Plan: Serial glucose and mental status monitoring Narcan as needed, D50 as needed We will hold home insulin at this time, goal blood glucose [id number] Will consult nephrology for continuation of HD if he is unable to return to his [place] [facility] facility by Tuesday Patient was recently discharged from our service on 11/19 with Morphine 15 mg 3 times daily. Upon discharge patient should have his narcotic medication changed to fentanyl patch and tramadol 100 mg every 6 as needed. Hold narcotics the p atient is alert and oriented enough to request. Resume home medications FEN - ADA diet PPX - Heparin FULL CODE Dispo - inpatient for above History of Present Illness History of Present Illness Patient is a 55-year-old male with extensive past medical history including DM2, ESRD on HD Tuesday/Tuesday/Tuesday, who presents from his [place] [facility] facility due to concerns of altered mental status. He was evaluated earlier this morning by [place] [facility] staff and noted to be unresponsive and hypoglycemic with blood sugar 59. He was given oral glucose by staff and blood sugar came up to 89. Upon arrival in the ED, pinpoint pupils were noted and he was given naltrexone x2 with improvement in mental status, however he was noted to be hypoxic as well. He did remain persistently hypoglycemic despite treatment with D50. Will admit patient for further medical management. 11/23: I discussion with patient yesterday about discontinuing all morphine narcotics, as these are metabolized by the kidneys and will build up in this patient causing his admitting symptoms of narcotic OD. Had meaningful conversation with patient about his experience. He tearfully reflects on his narcotic OD he has a near experience. Discussed discharging with tramadol and fentanyl, as his are metabolized by liver. Will ask neurology to evaluate patient for safety concerns of regular Tramadol use in patient with history of seizures on Depakote, as this medication can lower seizure threshold. Patient also reports worsening vision, concerned for post concussive syndrome. Nephrology to evaluate for possible HD today. Will monitor for adequate pain control on tramadol and fentanyl. He may possibly discharge tomorrow after his regular hemodialysis day. Vitals/I&O Vitals/I&O: Vital Signs Date Time Temp Pulse Resp B/P (MAP) Pulse Ox O2 Delivery O2 Flow Rate FiO2 1/24/21 03:07 98.9 75 20 164/69 (100) 91 Room Air 98.9 11/22/20 11:59 2.0 I & O 11/22/20 11/22/20 11/23/20 15:00 23:00 07:00 Intake Total 500 ml Output Total 0 ml Balance 500 ml 0 ml Physical Exam General: Alert, Oriented X3 Heart: Regular rate Lungs: Clear Abdomen: Normal bowel sounds, Soft Extremities: No clubbing, No cyanosis Skin: No rashes, No breakdown Labs Labs: Laboratory Tests Test 11/22/20 12:06 11/22/20 17:17 11/22/20 20:24 11/23/20 08:23 Glucose (Fingerstick) 99 mg/dL (70-99) 243 mg/dL (70-99) 95 mg/dL (70-99) 185 mg/dL (70-99) Assessment and Plan Assessmemt and Plan Problems Medical Problems: (1) Altered mental status Status: Acute (2) Hypoglycemia Status: Acute Comment Review of Relevant I have reviewed the following items nelda (where applicable) has been applied. Medications: Current Medications Medications (Trade) Dose Ordered Sig/Brittani Route PRN Reason Start Time Stop Time Status Last Admin Dose Admin Amlodipine Besylate (Norvasc) 10 mg DAILY PO 11/22/20 09:00 11/22/20 10:25 Aspirin (Aspirin Chewable) 81 mg DAILY PO 11/22/20 09:00 11/22/20 10:25 Atorvastatin Calcium (Lipitor) 40 mg QHS PO 11/22/20 21:00 11/22/20 21:04 Divalproex Sodium (Depakote) 1,000 mg BID PO 11/22/20 09:00 11/22/20 21:04 Docusate Sodium (Colace) 100 mg DAILY PO 11/22/20 09:00 11/22/20 10:25 Gabapentin (Neurontin) 100 mg TID PO 11/22/20 09:00 11/22/20 21:03 Hydralazine HCl (Apresoline) 50 mg BID PO 11/22/20 09:00 11/22/20 21:04 Lisinopril (Prinivil) 20 mg DAILY PO 11/22/20 09:00 11/22/20 10:26 Ranolazine (Ranexa) 500 mg BID PO 11/22/20 09:00 11/22/20 21:03 Fentanyl (Duragesic 75mcg/ Hr Patch) 1 patch Q3DAYS TD 11/22/20 09:00 11/22/20 11:25 Pantoprazole Sodium (Protonix) 40 mg DAILYAC PO 11/22/20 18:30 11/22/20 18:42 Justifications for Admission Other Justification AMS, necrotic ureters, hypoglycemia MO NAM MD Nov 23, 2020 08:52
[2020-11-23] MEDS: DOCUSATE SODIUM 100 MG CAPSULE. PO SCH (09:00)
[2020-11-23] MEDS: SEVELAMER CARBONATE 800 MG TABLET. PO SCH ×3 (09:24→17:30)
[2020-11-23] MEDS: CARVEDILOL 12.5 MG TABLET. PO SCH ×2 (09:25→17:30)
[2020-11-23] MEDS: LISINOPRIL 20 MG TABLET PO SCH (09:26)
[2020-11-23] MEDS: PANTOPRAZOLE 40 MG TABLET.DR. PO SCH (09:27)
[2020-11-23] MEDS: DIVALPROEX DELAYED RELEASE 500 MG TABLET.DR. PO SCH ×2 (09:27→20:29)
[2020-11-23] MEDS: traMADol 50 MG TABLET PO PRN (09:27)
[2020-11-23] MEDS: RANOLAZINE 500 MG TAB.ER.12H PO SCH ×2 (09:27→20:28)
[2020-11-23] MEDS: LUBIPROSTONE 24 MCG CAPSULE PO SCH (09:27)
[2020-11-23] MEDS: ASPIRIN CHEWABLE 81 MG TABLET. PO SCH (09:27)
[2020-11-23 09:30] LABS: ALBUMIN 2.2 g/dL (3.4-5.0); ALBUMIN/GLOBULIN RATIO 0.6 (1.0-1.7); CALCIUM 7.7 mg/dL (8.5-10.1); CREATININE 6.5 mg/dL (0.7-1.3); POTASSIUM 3.8 mmol/L (3.5-5.1); TOTAL BILIRUBIN 0.3 mg/dL (0.2-1.0); TOTAL PROTEIN 5.9 g/dL (6.4-8.2)
[2020-11-23] MEDS: GABAPENTIN 100 MG CAPSULE. PO SCH ×3 (09:31→20:30)
[2020-11-23] MEDS: INSULIN LISPRO 300 UNITS/3 ML VIAL. SQ SCH ×3 (09:37→17:34)
--- NOTE | 2020-11-23 10:08 | PDOC ---
DATE OF SERVICE: DOS: DATE: 11/23/20 TIME: 10:06 SUBJECTIVE ROS Follow-up for ESRD on hemodialysis Patient talking on the phone. Did not want to converse with me today OBJECTIVE Vital Signs Vital Signs Date Time Temp Pulse Resp B/P (MAP) Pulse Ox O2 Delivery O2 Flow Rate FiO2 11/23/20 09:27 Room Air 11/23/20 09:27 60 110/49 11/23/20 03:07 98.9 20 91 98.9 11/22/20 11:59 2.0 I & 0 Intake and Output 11/23/20 07:00 Intake Total 500 ml Output Total 0 ml Balance 500 ml Intake IV Total 500 ml Output Urine Total 0 ml # Voids 1 # Bowel Movements 1 PHYSICAL EXAM Physical Exam General Appearance: Awake: Alert Oriented x 3 Lungs clear, no respiratory distress visible Heart sounds S1-S2 Extremities - No Edema DIAGNOSIS/ASSESSMENT Assessment & Plan ESRD : Current fluid and E-lyte status does not necessitate emergent need for dialysis. Will re-evaluate for dialysis in the am and continue on MWF schedule. ANEMIA; Aranap as ordered, Transfuse with next HD as needed COMMENT/RELEVANT DATA Meds Current Medications Medications (Trade) Dose Ordered Sig/Brittani Start Time Stop Time Status Last Admin Dose Admin Acetaminophen (Tylenol) 650 mg PRN Q6HRS PRN 11/22/20 08:00 Al Hydroxide/Mg Hydroxide (Mylanta Plus Xs) 30 ml PRN Q3HRS PRN 11/22/20 08:00 11/22/20 19:23 30 ML Amlodipine Besylate (Norvasc) 10 mg DAILY 11/22/20 09:00 11/23/20 09:26 10 MG Aspirin (Aspirin Chewable) 81 mg DAILY 11/22/20 09:00 11/23/20 09:27 81 MG Atorvastatin Calcium (Lipitor) 40 mg QHS 11/22/20 21:00 11/22/20 21:04 40 MG Calcium Carbonate/ Glycine (Tums) 500 mg PRN Q3HRS PRN 11/22/20 08:00 11/22/20 19:24 500 MG Carvedilol (Coreg) 25 mg BIDWMEALS 11/22/20 08:00 11/23/20 09:25 25 MG Dextrose (Dextrose 50%-Water Syringe) 12.5 gm PRN Q15MIN PRN 11/22/20 07:15 Dextrose/Sodium Chloride 1,000 ml @ 100 mls/hr 1X ONCE 11/22/20 04:15 11/22/20 14:14 DC 11/22/20 04:10 100 MLS/HR Divalproex Sodium (Depakote) 1,000 mg BID 11/22/20 09:00 11/23/20 09:27 1,000 MG Docusate Sodium (Colace) 100 mg DAILY 11/22/20 09:00 11/22/20 10:25 100 MG Fentanyl (Duragesic 75mcg/ Hr Patch) 1 patch Q3DAYS 11/22/20 09:00 11/22/20 11:25 1 PATCH Gabapentin (Neurontin) 100 mg TID 11/22/20 09:00 11/23/20 09:31 100 MG Heparin Sodium (Porcine) (Heparin Sodium) 5,000 unit Q8HRS 11/22/20 08:00 11/22/20 14:01 5,000 UNIT Hydralazine HCl (Apresoline) 50 mg BID 11/22/20 09:00 11/23/20 09:25 50 MG Insulin Human Lispro (HumaLOG) 0-9 UNITS TIDWMEALS 11/22/20 08:00 11/23/20 09:37 4 UNITS Lisinopril (Prinivil) 20 mg DAILY 11/22/20 09:00 11/23/20 09:26 20 MG Lubiprostone (Amitiza) 24 mcg DAILYAC 11/22/20 08:00 11/23/20 09:27 24 MCG Magnesium Sulfate 50 ml @ 25 mls/hr PRN DAILY PRN 11/23/20 08:45 Naloxone HCl (Narcan) 0.4 mg PRN Q2MIN PRN 11/22/20 07:00 Nitroglycerin (Nitrostat) 0.4 mg PRN Q5MIN PRN 11/22/20 07:30 Ondansetron HCl (Zofran) 4 mg PRN Q6HRS PRN 11/22/20 08:00 11/22/20 19:25 4 MG Pantoprazole Sodium (Protonix) 40 mg DAILYAC 11/22/20 18:30 11/23/20 09:27 40 MG Ranolazine (Ranexa) 500 mg BID 11/22/20 09:00 11/23/20 09:27 500 MG Sevelamer Carbonate (Renvela) 800 mg TIDWMEALS 11/22/20 08:00 11/23/20 09:24 800 MG Sodium Chloride 1,000 ml @ 1,000 mls/hr 1X ONCE 11/22/20 04:15 11/22/20 05:14 DC Tramadol HCl (Ultram) 100 mg PRN Q6HRS PRN 11/22/20 07:45 11/23/20 09:27 100 MG Lab Laboratory Tests Test 11/22/20 12:06 11/22/20 17:17 11/22/20 20:24 11/23/20 08:10 Glucose (Fingerstick) 99 mg/dL (70-99) 243 mg/dL (70-99) 95 mg/dL (70-99) White Blood Count 6.4 x10^3/uL (4.0-11.0) Red Blood Count 2.72 x10^6/uL (4.30-5.70) Hemoglobin 8.7 g/dL (13.0-17.5) Hematocrit 26.7 % (39.0-53.0) Mean Corpuscular Volume 98 fL (79-100) Mean Corpuscular Hemoglobin 32 pg (25-35) Mean Corpuscular Hemoglobin Concent 33 g/dL (31-37) Red Cell Distribution Width 13.0 % (11.5-14.5) Platelet Count 145 x10^3/uL (140-400) Neutrophils (%) (Auto) 54 % (31-73) Lymphocytes (%) (Auto) 28 % (24-48) Monocytes (%) (Auto) 15 % (0-9) Eosinophils (%) (Auto) 3 % (0-3) Basophils (%) (Auto) 0 % (0-3) Neutrophils # (Auto) 3.4 x10^3/uL (1.8-7.7) Lymphocytes # (Auto) 1.8 x10^3/uL (1.0-4.8) Monocytes # (Auto) 0.9 x10^3/uL (0.0-1.1) Eosinophils # (Auto) 0.2 x10^3/uL (0.0-0.7) Basophils # (Auto) 0.0 x10^3/uL (0.0-0.2) Sodium Level 136 mmol/L (136-145) Potassium Level 3.8 mmol/L (3.5-5.1) Chloride Level 100 mmol/L (98-107) Carbon Dioxide Level 27 mmol/L (21-32) Anion Gap 9 (6-14) Blood Urea Nitrogen 34 mg/dL (8-26) Creatinine 6.5 mg/dL (0.7-1.3) Estimated GFR (Cockcroft-Gault) 9.0 BUN/Creatinine Ratio 5 (6-20) Glucose Level 193 mg/dL (70-99) Calcium Level 7.7 mg/dL (8.5-10.1) Total Bilirubin 0.3 mg/dL (0.2-1.0) Aspartate Amino Transf (AST/SGOT) 39 U/L (15-37) Alanine Aminotransferase (ALT/SGPT) 24 U/L (16-63) Alkaline Phosphatase 85 U/L (46-116) Total Protein 5.9 g/dL (6.4-8.2) Albumin 2.2 g/dL (3.4-5.0) Albumin/Globulin Ratio 0.6 (1.0-1.7) Test 11/23/20 08:23 Glucose (Fingerstick) 185 mg/dL (70-99) Results All relevant outside records, renal labs, imaging studies, telemetry/EKG's were reviewed. Justicifation of Admission Dx: Justifications for Admission: Justification of Admission Dx: Yes Chronic Renal Failure: Hypertension Altered Mental Status: Altered Mental Status GLO URIAS MD Nov 23, 2020 10:08
[2020-11-23 11:59] VITALS: BP 154/64
[2020-11-23 15:59] VITALS: BP 147/65
[2020-11-23 19:00] VITALS: BP 153/72
--- NOTE | 2020-11-23 20:13 | PDOC2 ---
CONSULT Date of Consult Date of Consult DATE: 11/23/20 TIME: 20:11 Reason for Consult Reason for Consult: AMS seizures Identification/Chief Complaint Chief Complaint AMS seizures History of Present Illness Reason for Visit: This patient is 55-year-old man with past medical history of multiple medical problems history of end-stage renal disease, diabetes, chronic pain seizures who presented to the emergency room with the episode of confusion with hypoglycemia, patient is also on pain medications. No new episode of seizure activity. Past Medical History Cardiovascular: CAD, CHF, HTN, Hyperlipidemia, Other Pulmonary: Bronchitis, Pulmonary embolus, Pneumonia, Other CENTRAL NERVOUS SYSTEM: CVA, Periperal neuropathy, Other GI: GERD, Other Heme/Onc: Cancer Psych: Depression Renal/: Chronic renal failure Endocrine: Diabetes, Hyperparathyroidism Past Surgical History Past Surgical History: Cholecystectomy, CABG, Tonsillectomy, Other Family History Family History: High Cholestrol, Hypertension, Kidney Disease Social History <1 pack per day ALCOHOL: none Drugs: Other Lives: with Family Current Problem List Problem List Problems Medical Problems: (1) Altered mental status Status: Acute (2) Hypoglycemia Status: Acute Current Medications Current Medications Current Medications Dextrose (Dextrose 50%-Water Syringe) 25 gm STK-MED ONCE IV ; Start 11/22/20 at 02:39; Stop 11/22/20 at 02:39; Status DC Naloxone HCl (Narcan) 0.4 mg STK-MED ONCE .ROUTE ; Start 11/22/20 at 02:44; Stop 11/22/20 at 02:45; Status DC Sodium Chloride 500 ml @ 500 mls/hr Q1H IV ; Start 11/22/20 at 03:00; Stop 11/22/20 at 03:55; Status DC Naloxone HCl (Narcan) 0.4 mg 1X ONCE IV Last administered on 11/22/20at 02:46; Start 11/22/20 at 03:00; Stop 11/22/20 at 03:01; Status DC Dextrose (Dextrose 50%-Water Syringe) 50 gm 1X ONCE IV Last administered on 11/22/20at 02:40; Start 11/22/20 at 03:00; Stop 11/22/20 at 03:01; Status DC Sodium Chloride 500 ml @ 500 mls/hr Q1H ONCE IV Last administered on 11/22/20at 03:02; Start 11/22/20 at 04:00; Stop 11/22/20 at 04:59; Status DC Naloxone HCl (Narcan) 0.4 mg 1X ONCE IV Last administered on 11/22/20at 04:00; Start 11/22/20 at 04:00; Stop 11/22/20 at 04:20; Status DC Sodium Chloride 1,000 ml @ 1,000 mls/hr 1X ONCE IV ; Start 11/22/20 at 04:15; Stop 11/22/20 at 05:14; Status DC Dextrose/Sodium Chloride 1,000 ml @ 100 mls/hr 1X ONCE IV Last administered on 11/22/20at 04:10; Start 11/22/20 at 04:15; Stop 11/22/20 at 14:14; Status DC Ondansetron HCl (Zofran) 4 mg PRN Q8HRS PRN IV NAUSEA/VOMITING; Start 11/22/20 at 04:15; Stop 11/22/20 at 18:13; Status DC Dextrose (Dextrose 50%-Water Syringe) 50 gm 1X ONCE IV ; Start 11/22/20 at 05:45; Stop 11/22/20 at 05:46; Status DC Dextrose (Dextrose 50%-Water Syringe) 25 gm 1X ONCE IV Last administered on 11/22/20at 04:51; Start 11/22/20 at 05:45; Stop 11/22/20 at 05:47; Status DC Naloxone HCl (Narcan) 0.4 mg PRN Q2MIN PRN IV SEE COMMENTS; Start 11/22/20 at 07:00 Insulin Human Lispro (HumaLOG) 0-9 UNITS TIDWMEALS SQ Last administered on 11/23/20at 17:34; Start 11/22/20 at 08:00 Dextrose (Dextrose 50%-Water Syringe) 12.5 gm PRN Q15MIN PRN IV SEE COMMENTS; Start 11/22/20 at 07:15 Acetaminophen (Tylenol) 650 mg PRN Q6HRS PRN PO Headaches, Temp > 101.5F; Start 11/22/20 at 07:30; Status Cancel Amlodipine Besylate (Norvasc) 10 mg DAILY PO Last administered on 11/23/20at 09:26; Start 11/22/20 at 09:00 Aspirin (Aspirin Chewable) 81 mg DAILY PO Last administered on 11/23/20at 09:27; Start 11/22/20 at 09:00 Atorvastatin Calcium (Lipitor) 40 mg QHS PO Last administered on 11/22/20 21:04; Start 11/22/20 at 21:00 Carvedilol (Coreg) 25 mg BIDWMEALS PO Last administered on 11/23/20 17:30; Start 11/22/20 at 08:00 Divalproex Sodium (Depakote) 1,000 mg BID PO Last administered on 11/23/20 09:27; Start 11/22/20 at 09:00 Docusate Sodium (Colace) 100 mg DAILY PO Last administered on 11/22/20 10:25; Start 11/22/20 at 09:00 Gabapentin (Neurontin) 100 mg TID PO Last administered on 11/23/20 14:02; Start 11/22/20 at 09:00; Stop 11/23/20 at 16:46; Status DC Hydralazine HCl (Apresoline) 50 mg BID PO Last administered on 11/23/20 09:25; Start 11/22/20 at 09:00 Lisinopril (Prinivil) 20 mg DAILY PO Last administered on 11/23/20 09:26; Start 11/22/20 at 09:00 Lubiprostone (Amitiza) 24 mcg DAILYAC PO Last administered on 11/23/20 09:27; Start 11/22/20 at 08:00 Nitroglycerin (Nitrostat) 0.4 mg PRN Q5MIN PRN SL CHEST PAIN; Start 11/22/20 at 07:30 Ranolazine (Ranexa) 500 mg BID PO Last administered on 11/23/20 09:27; Start 11/22/20 at 09:00 Sevelamer Carbonate (Renvela) 800 mg TIDWMEALS PO Last administered on 11/23/20 17:30; Start 11/22/20 at 08:00 Tramadol HCl (Ultram) 100 mg PRN Q6HRS PRN PO PAIN Last administered on 11/23/20 09:27; Start 11/22/20 at 07:45 Fentanyl (Duragesic 75mcg/ Hr Patch) 1 patch Q3DAYS TD Last administered on 11/22/20 11:25; Start 11/22/20 at 09:00 Ondansetron HCl (Zofran) 4 mg PRN Q6HRS PRN IVP NAUSEA/VOMITING Last administered on 11/22/20at 19:25; Start 11/22/20 at 08:00 Al Hydroxide/Mg Hydroxide (Mylanta Plus Xs) 30 ml PRN Q3HRS PRN PO HEARTBURN / GAS Last administered on 11/22/20at 19:23; Start 11/22/20 at 08:00 Calcium Carbonate/ Glycine (Tums) 500 mg PRN Q3HRS PRN PO UPSET STOMACH Last administered on 11/22/20at 19:24; Start 11/22/20 at 08:00 Acetaminophen (Tylenol) 650 mg PRN Q6HRS PRN PO Headaches, Temp > 101.5F; Start 11/22/20 at 08:00 Heparin Sodium (Porcine) (Heparin Sodium) 5,000 unit Q8HRS SQ Last administered on 11/23/20at 14:07; Start 11/22/20 at 08:00 Pantoprazole Sodium (Protonix) 40 mg DAILYAC PO Last administered on 11/23/20at 09:27; Start 11/22/20 at 18:30 Magnesium Sulfate 50 ml @ 25 mls/hr PRN DAILY PRN IV for Mag < 1.7 on am labs; Start 11/23/20 at 08:45 Darbepoetin Hayden (ARANESP for DIALYSIS PTS) 60 mcg Kuo SQ ; Start 11/23/20 at 21:00 Zolpidem Tartrate (Ambien) 5 mg PRN QHS PRN PO INSOMNIA; Start 11/23/20 at 14:00 Gabapentin (Neurontin) 200 mg BID92 PO ; Start 11/24/20 at 09:00 Gabapentin (Neurontin) 100 mg HS PO ; Start 11/23/20 at 21:00 Active Scripts Active Morphine Sulfate Er (Morphine Sulfate) 15 Mg Tablet.er 1 Tab PO TID 6 Days Percocet 10-325 Mg Tablet (Oxycodone/Acetaminophen) 1 Each Tablet 1 Tab PO QIDPRN PRN MDD 4 Tablet(s) 6 Days Tylenol (Acetaminophen) 325 Mg Tablet 650 Mg PO PRN Q6HRS PRN 14 Days Carvedilol (Carvedilol) 12.5 Mg Tablet 25 Mg PO BIDWMEALS 30 Days Hydralazine Hcl 50 Mg Tablet 50 Mg PO BID 30 Days Atorvastatin Calcium 40 Mg Tablet 40 Mg PO QHS 30 Days Gabapentin (Gabapentin) 100 Mg Capsule 100 Mg PO TID 30 Days [Diclofenac Sodium] 100 GM Gel..gram. 1 Christo TP BID 30 Days Reported Tresiba (Insulin Degludec) 100 Unit/1 Ml Vial 42 Unit SQ HS Ranexa (Ranolazine) 500 Mg Tab.er.12h 500 Mg PO BID Renal-Irvin Tablet (Folic Acid/Vit Bcomp,C) 0.8 Mg Tablet 0.8 Mg PO DAILY Novolog (Insulin Aspart) 100 Unit/1 Ml Vial 0 SQ PRN TID PRN Lisinopril 20 Mg Tablet 20 Mg PO DAILY Zofran (Ondansetron Hcl) 4 Mg Tablet 1 Tab PO PRN Q4HRS PRN NITROGLYCERIN SubLingual (Nitroglycerin) 0.4 Mg Tab.subl 0.4 Mg SL PRN Q5MIN PRN Citalopram Hbr (Citalopram Hydrobromide) 40 Mg Tablet 40 Mg PO HS Protonix (Pantoprazole Sodium) 20 Mg Tablet.dr 40 Mg PO DAILY Docusate Sodium 100 Mg Capsule 1 Cap PO DAILY Divalproex Sodium 500 Mg Tablet.dr 2 Tab PO BID Aspirin 81 Mg Tab.chew 1 Tab PO DAILY Amitiza (Lubiprostone) 24 Mcg Capsule 1 Cap PO DAILY Norvasc (Amlodipine Besylate) 10 Mg Tablet 10 Mg PO DAILY Renvela (Sevelamer Carbonate) 800 Mg Tablet 800 Mg PO TIDWMEALS Allergies Allergies: Coded Allergies: hydromorphone (Verified Allergy, Severe, Anaphylaxis, 06/24/20) morphine ok Physical Exam Physical Exam General no acute distress. HEENT: Normocephalic and atraumatic. NECK: Supple without bruitgill Respiratory: Clear to auscultation bilaterally Heart: Regular rate and rhythm, S1S2 normal NEUROLOGIC: Mental status alert able to tell his name right month no meningeal signs Cranial nerve equally reactive pupils, No facial asymmetry. Palate elevates and tongue protrudes in midline. Reflexes are 1-2 with flexor plantar responses. Strength able to move all exts does not participate Sensory exam is intact for light touch and pinprick. Gait in bed. A 10-point review of systems was obtained. Other than the history of present i llness the remainder of the review of systems is negative. Vitals VITALS Vital Signs Date Time Temp Pulse Resp B/P (MAP) Pulse Ox O2 Delivery O2 Flow Rate FiO2 11/23/20 19:00 97.9 63 20 153/72 (99) 99 Room Air 97.9 11/22/20 11:59 2.0 Labs Labs Laboratory Tests Test 11/22/20 02:35 11/22/20 02:38 11/22/20 03:00 11/22/20 03:50 Glucose (Fingerstick) 57 mg/dL (70-99) 136 mg/dL (70-99) 88 mg/dL (70-99) White Blood Count 6.6 x10^3/uL (4.0-11.0) Red Blood Count 3.25 x10^6/uL (4.30-5.70) Hemoglobin 10.3 g/dL (13.0-17.5) Hematocrit 31.3 % (39.0-53.0) Mean Corpuscular Volume 96 fL (79-100) Mean Corpuscular Hemoglobin 32 pg (25-35) Mean Corpuscular Hemoglobin Concent 33 g/dL (31-37) Red Cell Distribution Width 13.0 % (11.5-14.5) Platelet Count 160 x10^3/uL (140-400) Neutrophils (%) (Auto) 64 % (31-73) Lymphocytes (%) (Auto) 18 % (24-48) Monocytes (%) (Auto) 17 % (0-9) Eosinophils (%) (Auto) 1 % (0-3) Basophils (%) (Auto) 0 % (0-3) Neutrophils # (Auto) 4.2 x10^3/uL (1.8-7.7) Lymphocytes # (Auto) 1.2 x10^3/uL (1.0-4.8) Monocytes # (Auto) 1.1 x10^3/uL (0.0-1.1) Eosinophils # (Auto) 0.1 x10^3/uL (0.0-0.7) Basophils # (Auto) 0.0 x10^3/uL (0.0-0.2) Sodium Level 137 mmol/L (136-145) Potassium Level 4.1 mmol/L (3.5-5.1) Chloride Level 99 mmol/L (98-107) Carbon Dioxide Level 29 mmol/L (21-32) Anion Gap 9 (6-14) Blood Urea Nitrogen 20 mg/dL (8-26) Creatinine 4.8 mg/dL (0.7-1.3) Estimated GFR (Cockcroft-Gault) 12.8 Glucose Level 60 mg/dL (70-99) Lactic Acid Level 0.3 mmol/L (0.4-2.0) Calcium Level 8.2 mg/dL (8.5-10.1) Magnesium Level 2.0 mg/dL (1.8-2.4) Troponin I Quantitative 0.026 ng/mL (0.000-0.055) Test 11/22/20 04:03 11/22/20 04:48 11/22/20 08:02 11/22/20 12:06 Glucose (Fingerstick) 76 mg/dL (70-99) 61 mg/dL (70-99) 94 mg/dL (70-99) 99 mg/dL (70-99) Test 11/22/20 17:17 11/22/20 20:24 11/23/20 08:10 11/23/20 08:23 Glucose (Fingerstick) 243 mg/dL (70-99) 95 mg/dL (70-99) 185 mg/dL (70-99) White Blood Count 6.4 x10^3/uL (4.0-11.0) Red Blood Count 2.72 x10^6/uL (4.30-5.70) Hemoglobin 8.7 g/dL (13.0-17.5) Hematocrit 26.7 % (39.0-53.0) Mean Corpuscular Volume 98 fL (79-100) Mean Corpuscular Hemoglobin 32 pg (25-35) Mean Corpuscular Hemoglobin Concent 33 g/dL (31-37) Red Cell Distribution Width 13.0 % (11.5-14.5) Platelet Count 145 x10^3/uL (140-400) Neutrophils (%) (Auto) 54 % (31-73) Lymphocytes (%) (Auto) 28 % (24-48) Monocytes (%) (Auto) 15 % (0-9) Eosinophils (%) (Auto) 3 % (0-3) Basophils (%) (Auto) 0 % (0-3) Neutrophils # (Auto) 3.4 x10^3/uL (1.8-7.7) Lymphocytes # (Auto) 1.8 x10^3/uL (1.0-4.8) Monocytes # (Auto) 0.9 x10^3/uL (0.0-1.1) Eosinophils # (Auto) 0.2 x10^3/uL (0.0-0.7) Basophils # (Auto) 0.0 x10^3/uL (0.0-0.2) Sodium Level 136 mmol/L (136-145) Potassium Level 3.8 mmol/L (3.5-5.1) Chloride Level 100 mmol/L (98-107) Carbon Dioxide Level 27 mmol/L (21-32) Anion Gap 9 (6-14) Blood Urea Nitrogen 34 mg/dL (8-26) Creatinine 6.5 mg/dL (0.7-1.3) Estimated GFR (Cockcroft-Gault) 9.0 BUN/Creatinine Ratio 5 (6-20) Glucose Level 193 mg/dL (70-99) Calcium Level 7.7 mg/dL (8.5-10.1) Total Bilirubin 0.3 mg/dL (0.2-1.0) Aspartate Amino Transf (AST/SGOT) 39 U/L (15-37) Alanine Aminotransferase (ALT/SGPT) 24 U/L (16-63) Alkaline Phosphatase 85 U/L (46-116) Total Protein 5.9 g/dL (6.4-8.2) Albumin 2.2 g/dL (3.4-5.0) Albumin/Globulin Ratio 0.6 (1.0-1.7) Test 11/23/20 12:05 11/23/20 16:50 Glucose (Fingerstick) 88 mg/dL (70-99) 168 mg/dL (70-99) Laboratory Tests Test 11/22/20 20:24 11/23/20 08:10 11/23/20 08:23 11/23/20 12:05 Glucose (Fingerstick) 95 mg/dL (70-99) 185 mg/dL (70-99) 88 mg/dL (70-99) White Blood Count 6.4 x10^3/uL (4.0-11.0) Red Blood Count 2.72 x10^6/uL (4.30-5.70) Hemoglobin 8.7 g/dL (13.0-17.5) Hematocrit 26.7 % (39.0-53.0) Mean Corpuscular Volume 98 fL (79-100) Mean Corpuscular Hemoglobin 32 pg (25-35) Mean Corpuscular Hemoglobin Concent 33 g/dL (31-37) Red Cell Distribution Width 13.0 % (11.5-14.5) Platelet Count 145 x10^3/uL (140-400) Neutrophils (%) (Auto) 54 % (31-73) Lymphocytes (%) (Auto) 28 % (24-48) Monocytes (%) (Auto) 15 % (0-9) Eosinophils (%) (Auto) 3 % (0-3) Basophils (%) (Auto) 0 % (0-3) Neutrophils # (Auto) 3.4 x10^3/uL (1.8-7.7) Lymphocytes # (Auto) 1.8 x10^3/uL (1.0-4.8) Monocytes # (Auto) 0.9 x10^3/uL (0.0-1.1) Eosinophils # (Auto) 0.2 x10^3/uL (0.0-0.7) Basophils # (Auto) 0.0 x10^3/uL (0.0-0.2) Sodium Level 136 mmol/L (136-145) Potassium Level 3.8 mmol/L (3.5-5.1) Chloride Level 100 mmol/L (98-107) Carbon Dioxide Level 27 mmol/L (21-32) Anion Gap 9 (6-14) Blood Urea Nitrogen 34 mg/dL (8-26) Creatinine 6.5 mg/dL (0.7-1.3) Estimated GFR (Cockcroft-Gault) 9.0 BUN/Creatinine Ratio 5 (6-20) Glucose Level 193 mg/dL (70-99) Calcium Level 7.7 mg/dL (8.5-10.1) Total Bilirubin 0.3 mg/dL (0.2-1.0) Aspartate Amino Transf (AST/SGOT) 39 U/L (15-37) Alanine Aminotransferase (ALT/SGPT) 24 U/L (16-63) Alkaline Phosphatase 85 U/L (46-116) Total Protein 5.9 g/dL (6.4-8.2) Albumin 2.2 g/dL (3.4-5.0) Albumin/Globulin Ratio 0.6 (1.0-1.7) Test 11/23/20 16:50 Glucose (Fingerstick) 168 mg/dL (70-99) Assessment/Plan Assessment/Plan This patient is 55-year-old man with past medical history of multiple medical problems history of end-stage renal disease, diabetes, chronic pain seizures who presented to the emergency room with the episode of confusion with hypoglycemia, patient is also on pain medications. No new episode of seizure activity. 55-year-old man with past medical history of multiple medical problems with history of end-stage renal disease diabetes seizures double vision,chronic pain patient has been maintained on Depakote. No new clinical seizure activity noted. Patient on pain medication. Recommend avoiding tramadol can lower seizure threshold. Titrate pain medication Patient had CT scan done brain did not show any evidence of acute intracranial etiology limited by motion artifact. Changes noted for chronic small vessel ischemic disease. Will get MRI of brain when able to tolerate to further evaluate. Continue medical management. Plan discussed at length DIOGO WARE MD Nov 23, 2020 20:13
[2020-11-23] MEDS: ZOLPIDEM 5 MG TABLET. PO PRN (20:28)
[2020-11-23] MEDS: ATORVASTATIN CALCIUM 40 MG TABLET. PO SCH (20:28)
[2020-11-23] MEDS ORDERED: DARBEPOETIN ALFA 60 MCG/0.3 ML DISP.SYRIN. SQ SCH (21:00)
[2020-11-23 23:05] VITALS: BP 178/80
[2020-11-24 04:30] VITALS: BP 153/73
[2020-11-24] MEDS: HEPARIN for SUB-Q USE 5,000 UNIT/ML VIAL. SQ SCH ×3 (05:25→21:36)
[2020-11-24 07:00] VITALS: BP 177/70
[2020-11-24] MEDS: INSULIN LISPRO 300 UNITS/3 ML VIAL. SQ SCH ×3 (07:45→16:46)
[2020-11-24] MEDS: DIVALPROEX DELAYED RELEASE 500 MG TABLET.DR. PO SCH ×2 (08:15→21:33)
[2020-11-24] MEDS: traMADol 50 MG TABLET PO PRN ×2 (08:15→16:42)
[2020-11-24] MEDS: LUBIPROSTONE 24 MCG CAPSULE PO SCH (08:15)
[2020-11-24] MEDS: GABAPENTIN 100 MG CAPSULE. PO SCH ×3 (08:16→21:33)
[2020-11-24] MEDS: RANOLAZINE 500 MG TAB.ER.12H PO SCH ×2 (08:16→21:33)
[2020-11-24] MEDS: SEVELAMER CARBONATE 800 MG TABLET. PO SCH ×3 (08:16→16:42)
[2020-11-24] MEDS: ASPIRIN CHEWABLE 81 MG TABLET. PO SCH (08:16)
[2020-11-24] MEDS: DOCUSATE SODIUM 100 MG CAPSULE. PO SCH ×2 (08:16→08:18)
[2020-11-24] MEDS: PANTOPRAZOLE 40 MG TABLET.DR. PO SCH (08:16)
[2020-11-24] MEDS: LISINOPRIL 20 MG TABLET PO SCH ×2 (08:16→21:32)
[2020-11-24] MEDS: CARVEDILOL 12.5 MG TABLET. PO SCH ×2 (08:21→16:42)
--- NOTE | 2020-11-24 09:13 | PDOC ---
PROGRESS NOTES Date of Service: DATE: 11/24/20 TIME: 09:12 Chief Complaint Chief Complaint IMPRESSION Acute toxic encephalopathy Acute narcotic medication overdose Acute hypoglycemia ESRD on HD Plan: Serial glucose and mental status monitoring Narcan as needed, D50 as needed We will hold home insulin at this time, goal blood glucose [id number] Will consult nephrology for continuation of HD if he is unable to return to his skilled nursing by Tuesday Patient was recently discharged from our service on 11/19 with Morphine 15 mg 3 times daily. Upon discharge patient should have his narcotic medication changed to fentanyl patch and tramadol 100 mg every 6 as needed. Hold narcotics the patient is alert and oriented enough to request. Resume home medications FEN - ADA diet PPX - Heparin FULL CODE Dispo - inpatient for above History of Present Illness History of Present Illness Patient is a 55-year-old male with extensive past medical history including DM2, ESRD on HD Tuesday/Tuesday/Tuesday, who presents from his skilled nursing due to concerns of altered mental status. He was evaluated earlier this morning by skilled nursing staff and noted to be unresponsive and hypoglycemic with blood sugar 59. He was given oral glucose by staff and blood sugar came up to 89. Upon arrival in the ED, pinpoint pupils were noted and he was given naltrexone x2 with improvement in mental status, however he was noted to be hypoxic as well. He did remain persistently hypoglycemic despite treatment with D50. Will admit patient for further medical management. 11/23: I discussion with patient yesterday about discontinuing all morphine narcotics, as these are metabolized by the kidneys and will build up in this patient causing his admitting symptoms of narcotic OD. Had meaningful conversation with patient about his experience. He tearfully reflects on his narcotic OD he has a near experience. Discussed discharging with tramadol and fentanyl, as his are metabolized by liver. Will ask neurology to evaluate patient for safety concerns of regular Tramadol use in patient with history of seizures on Depakote, as this medication can lower seizure threshold. Patient also reports worsening vision, concerned for post concussive syndrome. Nephrology to evaluate for possible HD today. Will monitor for adequate pain control on tramadol and fentanyl. He may possibly discharge tomorrow after his regular hemodialysis day. 11/24 MRI HEAD no acute change cr 7.4 to dialysis today D/W RN DISCUSSED MULTIPLE FALLS RISK OF additional injury Vitals Vitals Vital Signs Date Time Temp Pulse Resp B/P (MAP) Pulse Ox O2 Delivery O2 Flow Rate FiO2 11/24/20 08:21 66 177/70 11/24/20 08:15 Room Air 11/24/20 07:00 98.0 18 96 98.0 Physical Exam General: Alert, Oriented X3 Heart: Regular rate Lungs: Clear Abdomen: Normal bowel sounds, Soft Extremities: No clubbing, No cyanosis Skin: No rashes, No breakdown Labs LABS MRI BRAIN WO History:Reason: falls, AMS, TREMORS, DIPLOPIA / Spl. Instructions: / History: Technique: Multiplanar, multi sequential MR imaging was performed of the brain without contrast. Comparison: CT September 02, 2020 Findings: Multiple sequences are motion degraded. No acute infarct. No intracranial hemorrhage. No mass effect. No hydrocephalus. Moderate brain parenchymal volume loss. Mild foci of FLAIR hyperintensities within the hemispheric white matter, most often due to chronic microvascular ischemia or related to prior insult. Imaged orbits are unremarkable. Right maxillary sinus mucous retention cyst. Mild maxillary sinus mucosal thickening. Mastoid air cells are clear. Impression: 1. No acute intracranial abnormality. 2. Moderate brain parenchymal volume loss for age. Electronically signed by: Joss Wick DO (11/24/2020 11:57 AM) [id number] DICTATED and SIGNED BY: JOSS WICK DO Laboratory Tests Test 11/23/20 12:05 11/23/20 16:50 11/23/20 20:25 11/24/20 07:36 Glucose (Fingerstick) 88 mg/dL (70-99) 168 mg/dL (70-99) 138 mg/dL (70-99) 69 mg/dL (70-99) Test 11/24/20 07:45 Hemoglobin 9.2 g/dL (13.0-17.5) Assessment and Plan Assessmemt and Plan Problems Medical Problems: (1) Altered mental status Status: Acute (2) Hypoglycemia Status: Acute Comment Review of Relevant I have reviewed the following items nelda (where applicable) has been applied. Labs Laboratory Tests Test 11/22/20 12:06 11/22/20 17:17 11/22/20 20:24 11/23/20 08:10 Glucose (Fingerstick) 99 mg/dL (70-99) 243 mg/dL (70-99) 95 mg/dL (70-99) White Blood Count 6.4 x10^3/uL (4.0-11.0) Red Blood Count 2.72 x10^6/uL (4.30-5.70) Hemoglobin 8.7 g/dL (13.0-17.5) Hematocrit 26.7 % (39.0-53.0) Mean Corpuscular Volume 98 fL (79-100) Mean Corpuscular Hemoglobin 32 pg (25-35) Mean Corpuscular Hemoglobin Concent 33 g/dL (31-37) Red Cell Distribution Width 13.0 % (11.5-14.5) Platelet Count 145 x10^3/uL (140-400) Neutrophils (%) (Auto) 54 % (31-73) Lymphocytes (%) (Auto) 28 % (24-48) Monocytes (%) (Auto) 15 % (0-9) Eosinophils (%) (Auto) 3 % (0-3) Basophils (%) (Auto) 0 % (0-3) Neutrophils # (Auto) 3.4 x10^3/uL (1.8-7.7) Lymphocytes # (Auto) 1.8 x10^3/uL (1.0-4.8) Monocytes # (Auto) 0.9 x10^3/uL (0.0-1.1) Eosinophils # (Auto) 0.2 x10^3/uL (0.0-0.7) Basophils # (Auto) 0.0 x10^3/uL (0.0-0.2) Sodium Level 136 mmol/L (136-145) Potassium Level 3.8 mmol/L (3.5-5.1) Chloride Level 100 mmol/L (98-107) Carbon Dioxide Level 27 mmol/L (21-32) Anion Gap 9 (6-14) Blood Urea Nitrogen 34 mg/dL (8-26) Creatinine 6.5 mg/dL (0.7-1.3) Estimated GFR (Cockcroft-Gault) 9.0 BUN/Creatinine Ratio 5 (6-20) Glucose Level 193 mg/dL (70-99) Calcium Level 7.7 mg/dL (8.5-10.1) Total Bilirubin 0.3 mg/dL (0.2-1.0) Aspartate Amino Transf (AST/SGOT) 39 U/L (15-37) Alanine Aminotransferase (ALT/SGPT) 24 U/L (16-63) Alkaline Phosphatase 85 U/L (46-116) Total Protein 5.9 g/dL (6.4-8.2) Albumin 2.2 g/dL (3.4-5.0) Albumin/Globulin Ratio 0.6 (1.0-1.7) Test 11/23/20 08:23 11/23/20 12:05 11/23/20 16:50 11/23/20 20:25 Glucose (Fingerstick) 185 mg/dL (70-99) 88 mg/dL (70-99) 168 mg/dL (70-99) 138 mg/dL (70-99) Test 11/24/20 07:36 11/24/20 07:45 Glucose (Fingerstick) 69 mg/dL (70-99) Hemoglobin 9.2 g/dL (13.0-17.5) Laboratory Tests Test 11/23/20 12:05 11/23/20 16:50 11/23/20 20:25 11/24/20 07:36 Glucose (Fingerstick) 88 mg/dL (70-99) 168 mg/dL (70-99) 138 mg/dL (70-99) 69 mg/dL (70-99) Test 11/24/20 07:45 Hemoglobin 9.2 g/dL (13.0-17.5) Medications Current Medications Dextrose (Dextrose 50%-Water Syringe) 25 gm STK-MED ONCE IV ; Start 11/22/20 at 02:39; Stop 11/22/20 at 02:39; Status DC Naloxone HCl (Narcan) 0.4 mg STK-MED ONCE .ROUTE ; Start 11/22/20 at 02:44; Stop 11/22/20 at 02:45; Status DC Sodium Chloride 500 ml @ 500 mls/hr Q1H IV ; Start 11/22/20 at 03:00; Stop 11/22/20 at 03:55; Status DC Naloxone HCl (Narcan) 0.4 mg 1X ONCE IV Last administered on 11/22/20at 02:46; Start 11/22/20 at 03:00; Stop 11/22/20 at 03:01; Status DC Dextrose (Dextrose 50%-Water Syringe) 50 gm 1X ONCE IV Last administered on 11/22/20at 02:40; Start 11/22/20 at 03:00; Stop 11/22/20 at 03:01; Status DC Sodium Chloride 500 ml @ 500 mls/hr Q1H ONCE IV Last administered on 11/22/20at 03:02; Start 11/22/20 at 04:00; Stop 11/22/20 at 04:59; Status DC Naloxone HCl (Narcan) 0.4 mg 1X ONCE IV Last administered on 11/22/20at 04:00; Start 11/22/20 at 04:00; Stop 11/22/20 at 04:20; Status DC Sodium Chloride 1,000 ml @ 1,000 mls/hr 1X ONCE IV ; Start 11/22/20 at 04:15; Stop 11/22/20 at 05:14; Status DC Dextrose/Sodium Chloride 1,000 ml @ 100 mls/hr 1X ONCE IV Last administered on 11/22/20at 04:10; Start 11/22/20 at 04:15; Stop 11/22/20 at 14:14; Status DC Ondansetron HCl (Zofran) 4 mg PRN Q8HRS PRN IV NAUSEA/VOMITING; Start 11/22/20 at 04:15; Stop 11/22/20 at 18:13; Status DC Dextrose (Dextrose 50%-Water Syringe) 50 gm 1X ONCE IV ; Start 11/22/20 at 05:45; Stop 11/22/20 at 05:46; Status DC Dextrose (Dextrose 50%-Water Syringe) 25 gm 1X ONCE IV Last administered on 11/22/20at 04:51; Start 11/22/20 at 05:45; Stop 11/22/20 at 05:47; Status DC Naloxone HCl (Narcan) 0.4 mg PRN Q2MIN PRN IV SEE COMMENTS; Start 11/22/20 at 07:00 Insulin Human Lispro (HumaLOG) 0-9 UNITS TIDWMEALS SQ Last administered on 11/23/20at 17:34; Start 11/22/20 at 08:00 Dextrose (Dextrose 50%-Water Syringe) 12.5 gm PRN Q15MIN PRN IV SEE COMMENTS; Start 11/22/20 at 07:15 Acetaminophen (Tylenol) 650 mg PRN Q6HRS PRN PO Headaches, Temp > 101.5F; Start 11/22/20 at 07:30; Status Cancel Amlodipine Besylate (Norvasc) 10 mg DAILY PO Last administered on 11/24/20 08:17; Start 11/22/20 at 09:00 Aspirin (Aspirin Chewable) 81 mg DAILY PO Last administered on 11/24/20at 08:16; Start 11/22/20 at 09:00 Atorvastatin Calcium (Lipitor) 40 mg QHS PO Last administered on 11/23/20at 20:28; Start 11/22/20 at 21:00 Carvedilol (Coreg) 25 mg BIDWMEALS PO Last administered on 11/24/20 08:21; Start 11/22/20 at 08:00 Divalproex Sodium (Depakote) 1,000 mg BID PO Last administered on 11/24/20 08:15; Start 11/22/20 at 09:00 Docusate Sodium (Colace) 100 mg DAILY PO Last administered on 11/22/20at 10:25; Start 11/22/20 at 09:00 Gabapentin (Neurontin) 100 mg TID PO Last administered on 11/23/20at 14:02; Start 11/22/20 at 09:00; Stop 11/23/20 at 16:46; Status DC Hydralazine HCl (Apresoline) 50 mg BID PO Last administered on 11/24/20 08:17; Start 11/22/20 at 09:00 Lisinopril (Prinivil) 20 mg DAILY PO Last administered on 11/24/20at 08:16; Start 11/22/20 at 09:00 Lubiprostone (Amitiza) 24 mcg DAILYAC PO Last administered on 11/24/20at 08:15; Start 11/22/20 at 08:00 Nitroglycerin (Nitrostat) 0.4 mg PRN Q5MIN PRN SL CHEST PAIN; Start 11/22/20 at 07:30 Ranolazine (Ranexa) 500 mg BID PO Last administered on 11/24/20at 08:16; Start 11/22/20 at 09:00 Sevelamer Carbonate (Renvela) 800 mg TIDWMEALS PO Last administered on 11/24/20at 08:16; Start 11/22/20 at 08:00 Tramadol HCl (Ultram) 100 mg PRN Q6HRS PRN PO PAIN Last administered on 11/24/20 08:15; Start 11/22/20 at 07:45 Fentanyl (Duragesic 75mcg/ Hr Patch) 1 patch Q3DAYS TD Last administered on 11/22/20at 11:25; Start 11/22/20 at 09:00 Ondansetron HCl (Zofran) 4 mg PRN Q6HRS PRN IVP NAUSEA/VOMITING Last administered on 11/22/20at 19:25; Start 11/22/20 at 08:00 Al Hydroxide/Mg Hydroxide (Mylanta Plus Xs) 30 ml PRN Q3HRS PRN PO HEARTBURN / GAS Last administered on 11/22/20 19:23; Start 11/22/20 at 08:00 Calcium Carbonate/ Glycine (Tums) 500 mg PRN Q3HRS PRN PO UPSET STOMACH Last administered on 11/22/20at 19:24; Start 11/22/20 at 08:00 Acetaminophen (Tylenol) 650 mg PRN Q6HRS PRN PO Headaches, Temp > 101.5F; Start 11/22/20 at 08:00 Heparin Sodium (Porcine) (Heparin Sodium) 5,000 unit Q8HRS SQ Last administered on 11/23/20at 14:07; Start 11/22/20 at 08:00 Pantoprazole Sodium (Protonix) 40 mg DAILYAC PO Last administered on 11/24/20at 08:16; Start 11/22/20 at 18:30 Magnesium Sulfate 50 ml @ 25 mls/hr PRN DAILY PRN IV for Mag < 1.7 on am labs; Start 11/23/20 at 08:45 Darbepoetin Hayden (ARANESP for DIALYSIS PTS) 60 mcg Kuo SQ ; Start 11/23/20 at 21:00 Zolpidem Tartrate (Ambien) 5 mg PRN QHS PRN PO INSOMNIA Last administered on 11/23/20at 20:28; Start 11/23/20 at 14:00 Gabapentin (Neurontin) 200 mg BID92 PO Last administered on 11/24/20at 08:16; Start 11/24/20 at 09:00 Gabapentin (Neurontin) 100 mg HS PO Last administered on 11/23/20at 20:30; Start 11/23/20 at 21:00 Active Scripts Active Morphine Sulfate Er (Morphine Sulfate) 15 Mg Tablet.er 1 Tab PO TID 6 Days Percocet 10-325 Mg Tablet (Oxycodone/Acetaminophen) 1 Each Tablet 1 Tab PO QIDPRN PRN MDD 4 Tablet(s) 6 Days Tylenol (Acetaminophen) 325 Mg Tablet 650 Mg PO PRN Q6HRS PRN 14 Days Carvedilol (Carvedilol) 12.5 Mg Tablet 25 Mg PO BIDWMEALS 30 Days Hydralazine Hcl 50 Mg Tablet 50 Mg PO BID 30 Days Atorvastatin Calcium 40 Mg Tablet 40 Mg PO QHS 30 Days Gabapentin (Gabapentin) 100 Mg Capsule 100 Mg PO TID 30 Days [Diclofenac Sodium] 100 GM Gel..gram. 1 Christo TP BID 30 Days Reported Tresiba (Insulin Degludec) 100 Unit/1 Ml Vial 42 Unit SQ HS Ranexa (Ranolazine) 500 Mg Tab.er.12h 500 Mg PO BID Renal-Irvin Tablet (Folic Acid/Vit Bcomp,C) 0.8 Mg Tablet 0.8 Mg PO DAILY Novolog (Insulin Aspart) 100 Unit/1 Ml Vial 0 SQ PRN TID PRN Lisinopril 20 Mg Tablet 20 Mg PO DAILY Zofran (Ondansetron Hcl) 4 Mg Tablet 1 Tab PO PRN Q4HRS PRN NITROGLYCERIN SubLingual (Nitroglycerin) 0.4 Mg Tab.subl 0.4 Mg SL PRN Q5MIN PRN Citalopram Hbr (Citalopram Hydrobromide) 40 Mg Tablet 40 Mg PO HS Protonix (Pantoprazole Sodium) 20 Mg Tablet.dr 40 Mg PO DAILY Docusate Sodium 100 Mg Capsule 1 Cap PO DAILY Divalproex Sodium 500 Mg Tablet.dr 2 Tab PO BID Aspirin 81 Mg Tab.chew 1 Tab PO DAILY Amitiza (Lubiprostone) 24 Mcg Capsule 1 Cap PO DAILY Norvasc (Amlodipine Besylate) 10 Mg Tablet 10 Mg PO DAILY Renvela (Sevelamer Carbonate) 800 Mg Tablet 800 Mg PO TIDWMEALS Vitals/I & O Vital Sign - Last 24 Hours 11/23/20 11/23/20 11/23/20 11/23/20 09:25 09:25 09:26 09:26 Pulse 60 60 60 60 B/P (MAP) 110/49 110/49 110/49 110/49 11/23/20 11/23/20 11/23/20 11/23/20 09:27 09:27 10:39 11:59 Temp 97.8 97.8 Pulse 60 114 Resp 20 B/P (MAP) 110/49 154/64 (94) Pulse Ox 91 O2 Delivery Room Air Room Air Room Air 11/23/20 11/23/20 11/23/20 11/23/20 15:59 17:30 19:00 20:00 Temp 97.8 97.9 97.8 97.9 Pulse 75 114 63 Resp 20 20 B/P (MAP) 147/65 (92) 154/64 153/72 (99) Pulse Ox 97 99 O2 Delivery Room Air Room Air Room Air 11/23/20 11/23/20 11/23/20 11/24/20 20:28 20:29 23:05 04:30 Temp 97.7 98.1 97.7 98.1 Pulse 63 63 60 66 Resp 20 20 B/P (MAP) 153/72 153/72 178/80 (112) 153/73 (99) Pulse Ox 95 97 O2 Delivery Room Air Room Air 11/24/20 11/24/20 11/24/20 11/24/20 07:00 08:15 08:16 08:16 Temp 98.0 98.0 Pulse 66 66 66 Resp 18 B/P (MAP) 177/70 (105) 177/70 177/70 Pulse Ox 96 O2 Delivery Room Air Room Air 11/24/20 11/24/20 11/24/20 08:17 08:17 08:21 Pulse 66 66 66 B/P (MAP) 177/70 177/70 177/70 Intake and Output 11/23/20 11/23/20 11/24/20 15:00 23:00 07:00 Output Total 0 ml Balance 0 ml Justicifation of Admission Dx: Justifications for Admission: Justification of Admission Dx: Yes Chronic Renal Failure: Hypertension Altered Mental Status: Altered Mental Status SALOMÓN HADDAD MD Nov 24, 2020 09:12
[2020-11-24 09:18] LABS: ALBUMIN 2.5 g/dL (3.4-5.0); CALCIUM 8.3 mg/dL (8.5-10.1); CREATININE 7.4 mg/dL (0.7-1.3); GFR 7.8; PHOSPHORUS 4.3 mg/dL (2.6-4.7); POTASSIUM 4.4 mmol/L (3.5-5.1)
--- NOTE | 2020-11-24 10:20 | EKG ---
[facility] [address] [place] [address] Test Date: 2020-11-22 Test Time: 03:15:49 Pat Name: JULIAN GARCÍA Department: Room: Gender: M Hat Binder: : [id number] Requested By: PEG REA Order Number: [id number] Reading MD: Measurements Intervals [place] Rate: 90 P: AR: QRS: -27 QRSD: 96 T: -15 QT: 422 QTc: 521 Interpretive Statements IRREGULAR RHYTHM, NO P-WAVE FOUND LEFTWARD AXIS R-S TRANSITION ZONE IN V LEADS DISPLACED TO THE LEFT ST & T ABNORMALITY, CONSIDER INFERIOR ISCHEMIA OR LEFT VENTRICULAR STRAIN T ABNORMALITY IN HIGH LATERAL LEADS ABNORMAL ECG RI6.02 No previous ECG available for comparison
[2020-11-24 11:00] VITALS: BP 188/95
[2020-11-24] MEDS: ONDANSETRON PF 4 MG/2 ML VIAL. IVP PRN (11:45)
--- NOTE | 2020-11-24 11:58 | PDOC ---
PROGRESS NOTES Date of Service DATE: 11/24/20 TIME: 11:54 Assessment Problems Medical Problems: (1) Altered mental status Status: Acute (2) Hypoglycemia Status: Acute Hypoglycemic encephalopathy, also encephalopathy from narcotics History of strokes History of seizures History of multiple falls Peripheral neuropathy related to diabetes End-stage renal disease, diabetes, chronic pain Plan MRI of brain Home as soon as today if it is negative. Subjective Feels better, worried about multiple falls and confusion Objective Vital Signs Date Time Temp Pulse Resp B/P (MAP) Pulse Ox O2 Delivery O2 Flow Rate FiO2 11/24/20 11:00 97.7 71 18 188/95 (126) 97 Room Air 97.7 Intake and Output 11/24/20 07:00 Output Total 0 ml Balance 0 ml Output Urine Total 0 ml # Voids 2 PHYSICAL EXAM Alert. Oriented to time, place and person. PERRL. EOMI. CN: no focal findings. Muscle tone: normal. Muscle strength: 4/5 DTR: 1+ Plantar reflex: Flexor Gait: not examined in bed. Sensory exam: Stocking loss. No cerebellar signs elicited. Review of Relevant I have reviewed the following items nelda (where applicable) has been applied. Labs Laboratory Tests Test 11/22/20 12:06 11/22/20 17:17 11/22/20 20:24 11/23/20 08:10 Glucose (Fingerstick) 99 mg/dL (70-99) 243 mg/dL (70-99) 95 mg/dL (70-99) White Blood Count 6.4 x10^3/uL (4.0-11.0) Red Blood Count 2.72 x10^6/uL (4.30-5.70) Hemoglobin 8.7 g/dL (13.0-17.5) Hematocrit 26.7 % (39.0-53.0) Mean Corpuscular Volume 98 fL (79-100) Mean Corpuscular Hemoglobin 32 pg (25-35) Mean Corpuscular Hemoglobin Concent 33 g/dL (31-37) Red Cell Distribution Width 13.0 % (11.5-14.5) Platelet Count 145 x10^3/uL (140-400) Neutrophils (%) (Auto) 54 % (31-73) Lymphocytes (%) (Auto) 28 % (24-48) Monocytes (%) (Auto) 15 % (0-9) Eosinophils (%) (Auto) 3 % (0-3) Basophils (%) (Auto) 0 % (0-3) Neutrophils # (Auto) 3.4 x10^3/uL (1.8-7.7) Lymphocytes # (Auto) 1.8 x10^3/uL (1.0-4.8) Monocytes # (Auto) 0.9 x10^3/uL (0.0-1.1) Eosinophils # (Auto) 0.2 x10^3/uL (0.0-0.7) Basophils # (Auto) 0.0 x10^3/uL (0.0-0.2) Sodium Level 136 mmol/L (136-145) Potassium Level 3.8 mmol/L (3.5-5.1) Chloride Level 100 mmol/L (98-107) Carbon Dioxide Level 27 mmol/L (21-32) Anion Gap 9 (6-14) Blood Urea Nitrogen 34 mg/dL (8-26) Creatinine 6.5 mg/dL (0.7-1.3) Estimated GFR (Cockcroft-Gault) 9.0 BUN/Creatinine Ratio 5 (6-20) Glucose Level 193 mg/dL (70-99) Calcium Level 7.7 mg/dL (8.5-10.1) Total Bilirubin 0.3 mg/dL (0.2-1.0) Aspartate Amino Transf (AST/SGOT) 39 U/L (15-37) Alanine Aminotransferase (ALT/SGPT) 24 U/L (16-63) Alkaline Phosphatase 85 U/L (46-116) Total Protein 5.9 g/dL (6.4-8.2) Albumin 2.2 g/dL (3.4-5.0) Albumin/Globulin Ratio 0.6 (1.0-1.7) Test 11/23/20 08:23 11/23/20 12:05 11/23/20 16:50 11/23/20 20:25 Glucose (Fingerstick) 185 mg/dL (70-99) 88 mg/dL (70-99) 168 mg/dL (70-99) 138 mg/dL (70-99) Test 11/24/20 07:36 11/24/20 07:45 11/24/20 11:46 Glucose (Fingerstick) 69 mg/dL (70-99) 129 mg/dL (70-99) Hemoglobin 9.2 g/dL (13.0-17.5) Sodium Level 136 mmol/L (136-145) Potassium Level 4.4 mmol/L (3.5-5.1) Chloride Level 98 mmol/L (98-107) Carbon Dioxide Level 25 mmol/L (21-32) Anion Gap 13 (6-14) Blood Urea Nitrogen 41 mg/dL (8-26) Creatinine 7.4 mg/dL (0.7-1.3) Estimated GFR (Cockcroft-Gault) 7.8 Glucose Level 69 mg/dL (70-99) Calcium Level 8.3 mg/dL (8.5-10.1) Phosphorus Level 4.3 mg/dL (2.6-4.7) Magnesium Level 2.5 mg/dL (1.8-2.4) Albumin 2.5 g/dL (3.4-5.0) Laboratory Tests Test 11/23/20 12:05 11/23/20 16:50 11/23/20 20:25 11/24/20 07:36 Glucose (Fingerstick) 88 mg/dL (70-99) 168 mg/dL (70-99) 138 mg/dL (70-99) 69 mg/dL (70-99) Test 11/24/20 07:45 11/24/20 11:46 Hemoglobin 9.2 g/dL (13.0-17.5) Sodium Level 136 mmol/L (136-145) Potassium Level 4.4 mmol/L (3.5-5.1) Chloride Level 98 mmol/L (98-107) Carbon Dioxide Level 25 mmol/L (21-32) Anion Gap 13 (6-14) Blood Urea Nitrogen 41 mg/dL (8-26) Creatinine 7.4 mg/dL (0.7-1.3) Estimated GFR (Cockcroft-Gault) 7.8 Glucose Level 69 mg/dL (70-99) Calcium Level 8.3 mg/dL (8.5-10.1) Phosphorus Level 4.3 mg/dL (2.6-4.7) Magnesium Level 2.5 mg/dL (1.8-2.4) Albumin 2.5 g/dL (3.4-5.0) Glucose (Fingerstick) 129 mg/dL (70-99) Medications Current Medications Dextrose (Dextrose 50%-Water Syringe) 25 gm STK-MED ONCE IV ; Start 11/22/20 at 02:39; Stop 11/22/20 at 02:39; Status DC Naloxone HCl (Narcan) 0.4 mg STK-MED ONCE .ROUTE ; Start 11/22/20 at 02:44; Stop 11/22/20 at 02:45; Status DC Sodium Chloride 500 ml @ 500 mls/hr Q1H IV ; Start 11/22/20 at 03:00; Stop 11/22/20 at 03:55; Status DC Naloxone HCl (Narcan) 0.4 mg 1X ONCE IV Last administered on 11/22/20at 02:46; Start 11/22/20 at 03:00; Stop 11/22/20 at 03:01; Status DC Dextrose (Dextrose 50%-Water Syringe) 50 gm 1X ONCE IV Last administered on 11/22/20at 02:40; Start 11/22/20 at 03:00; Stop 11/22/20 at 03:01; Status DC Sodium Chloride 500 ml @ 500 mls/hr Q1H ONCE IV Last administered on 11/22/20at 03:02; Start 11/22/20 at 04:00; Stop 11/22/20 at 04:59; Status DC Naloxone HCl (Narcan) 0.4 mg 1X ONCE IV Last administered on 11/22/20at 04:00; Start 11/22/20 at 04:00; Stop 11/22/20 at 04:20; Status DC Sodium Chloride 1,000 ml @ 1,000 mls/hr 1X ONCE IV ; Start 11/22/20 at 04:15; Stop 11/22/20 at 05:14; Status DC Dextrose/Sodium Chloride 1,000 ml @ 100 mls/hr 1X ONCE IV Last administered on 11/22/20at 04:10; Start 11/22/20 at 04:15; Stop 11/22/20 at 14:14; Status DC Ondansetron HCl (Zofran) 4 mg PRN Q8HRS PRN IV NAUSEA/VOMITING; Start 11/22/20 at 04:15; Stop 11/22/20 at 18:13; Status DC Dextrose (Dextrose 50%-Water Syringe) 50 gm 1X ONCE IV ; Start 11/22/20 at 05:45; Stop 11/22/20 at 05:46; Status DC Dextrose (Dextrose 50%-Water Syringe) 25 gm 1X ONCE IV Last administered on 11/22/20at 04:51; Start 11/22/20 at 05:45; Stop 11/22/20 at 05:47; Status DC Naloxone HCl (Narcan) 0.4 mg PRN Q2MIN PRN IV SEE COMMENTS; Start 11/22/20 at 07:00 Insulin Human Lispro (HumaLOG) 0-9 UNITS TIDWMEALS SQ Last administered on 11/23/20at 17:34; Start 11/22/20 at 08:00 Dextrose (Dextrose 50%-Water Syringe) 12.5 gm PRN Q15MIN PRN IV SEE COMMENTS; Start 11/22/20 at 07:15 Acetaminophen (Tylenol) 650 mg PRN Q6HRS PRN PO Headaches, Temp > 101.5F; Start 11/22/20 at 07:30; Status Cancel Amlodipine Besylate (Norvasc) 10 mg DAILY PO Last administered on 11/24/20at 08:17; Start 11/22/20 at 09:00 Aspirin (Aspirin Chewable) 81 mg DAILY PO Last administered on 11/24/20at 08:16; Start 11/22/20 at 09:00 Atorvastatin Calcium (Lipitor) 40 mg QHS PO Last administered on 11/23/20at 20:28; Start 11/22/20 at 21:00 Carvedilol (Coreg) 25 mg BIDWMEALS PO Last administered on 11/24/20at 08:21; Start 11/22/20 at 08:00 Divalproex Sodium (Depakote) 1,000 mg BID PO Last administered on 11/24/20at 08:15; Start 11/22/20 at 09:00 Docusate Sodium (Colace) 100 mg DAILY PO Last administered on 11/22/20at 10:25; Start 11/22/20 at 09:00 Gabapentin (Neurontin) 100 mg TID PO Last administered on 11/23/20at 14:02; Start 11/22/20 at 09:00; Stop 11/23/20 at 16:46; Status DC Hydralazine HCl (Apresoline) 50 mg BID PO Last administered on 11/24/20 08:17; Start 11/22/20 at 09:00 Lisinopril (Prinivil) 20 mg DAILY PO Last administered on 11/24/20 08:16; Start 11/22/20 at 09:00 Lubiprostone (Amitiza) 24 mcg DAILYAC PO Last administered on 11/24/20 08:15; Start 11/22/20 at 08:00 Nitroglycerin (Nitrostat) 0.4 mg PRN Q5MIN PRN SL CHEST PAIN; Start 11/22/20 at 07:30 Ranolazine (Ranexa) 500 mg BID PO Last administered on 11/24/20 08:16; Start 11/22/20 at 09:00 Sevelamer Carbonate (Renvela) 800 mg TIDWMEALS PO Last administered on 11/24/20 08:16; Start 11/22/20 at 08:00 Tramadol HCl (Ultram) 100 mg PRN Q6HRS PRN PO PAIN Last administered on 11/24/20 08:15; Start 11/22/20 at 07:45 Fentanyl (Duragesic 75mcg/ Hr Patch) 1 patch Q3DAYS TD Last administered on 11/22/20 11:25; Start 11/22/20 at 09:00 Ondansetron HCl (Zofran) 4 mg PRN Q6HRS PRN IVP NAUSEA/VOMITING Last administered on 11/24/20 11:45; Start 11/22/20 at 08:00 Al Hydroxide/Mg Hydroxide (Mylanta Plus Xs) 30 ml PRN Q3HRS PRN PO HEARTBURN / GAS Last administered on 11/22/20 19:23; Start 11/22/20 at 08:00 Calcium Carbonate/ Glycine (Tums) 500 mg PRN Q3HRS PRN PO UPSET STOMACH Last administered on 11/22/20 19:24; Start 11/22/20 at 08:00 Acetaminophen (Tylenol) 650 mg PRN Q6HRS PRN PO Headaches, Temp > 101.5F; Start 11/22/20 at 08:00 Heparin Sodium (Porcine) (Heparin Sodium) 5,000 unit Q8HRS SQ Last administered on 11/23/20 14:07; Start 11/22/20 at 08:00 Pantoprazole Sodium (Protonix) 40 mg DAILYAC PO Last administered on 11/24/20at 08:16; Start 11/22/20 at 18:30 Magnesium Sulfate 50 ml @ 25 mls/hr PRN DAILY PRN IV for Mag < 1.7 on am labs; Start 11/23/20 at 08:45 Darbepoetin Hayden (ARANESP for DIALYSIS PTS) 60 mcg Kuo SQ ; Start 11/23/20 at 21:00 Zolpidem Tartrate (Ambien) 5 mg PRN QHS PRN PO INSOMNIA Last administered on 11/23/20at 20:28; Start 11/23/20 at 14:00 Gabapentin (Neurontin) 200 mg BID92 PO Last administered on 11/24/20at 08:16; Start 11/24/20 at 09:00 Gabapentin (Neurontin) 100 mg HS PO Last administered on 11/23/20at 20:30; Start 11/23/20 at 21:00 Active Scripts Active Morphine Sulfate Er (Morphine Sulfate) 15 Mg Tablet.er 1 Tab PO TID 6 Days Percocet 10-325 Mg Tablet (Oxycodone/Acetaminophen) 1 Each Tablet 1 Tab PO QIDPRN PRN MDD 4 Tablet(s) 6 Days Tylenol (Acetaminophen) 325 Mg Tablet 650 Mg PO PRN Q6HRS PRN 14 Days Carvedilol (Carvedilol) 12.5 Mg Tablet 25 Mg PO BIDWMEALS 30 Days Hydralazine Hcl 50 Mg Tablet 50 Mg PO BID 30 Days Atorvastatin Calcium 40 Mg Tablet 40 Mg PO QHS 30 Days Gabapentin (Gabapentin) 100 Mg Capsule 100 Mg PO TID 30 Days [Diclofenac Sodium] 100 GM Gel..gram. 1 Christo TP BID 30 Days Reported Tresiba (Insulin Degludec) 100 Unit/1 Ml Vial 42 Unit SQ HS Ranexa (Ranolazine) 500 Mg Tab.er.12h 500 Mg PO BID Renal-Irvin Tablet (Folic Acid/Vit Bcomp,C) 0.8 Mg Tablet 0.8 Mg PO DAILY Novolog (Insulin Aspart) 100 Unit/1 Ml Vial 0 SQ PRN TID PRN Lisinopril 20 Mg Tablet 20 Mg PO DAILY Zofran (Ondansetron Hcl) 4 Mg Tablet 1 Tab PO PRN Q4HRS PRN NITROGLYCERIN SubLingual (Nitroglycerin) 0.4 Mg Tab.subl 0.4 Mg SL PRN Q5MIN PRN Citalopram Hbr (Citalopram Hydrobromide) 40 Mg Tablet 40 Mg PO HS Protonix (Pantoprazole Sodium) 20 Mg Tablet.dr 40 Mg PO DAILY Docusate Sodium 100 Mg Capsule 1 Cap PO DAILY Divalproex Sodium 500 Mg Tablet.dr 2 Tab PO BID Aspirin 81 Mg Tab.chew 1 Tab PO DAILY Amitiza (Lubiprostone) 24 Mcg Capsule 1 Cap PO DAILY Norvasc (Amlodipine Besylate) 10 Mg Tablet 10 Mg PO DAILY Renvela (Sevelamer Carbonate) 800 Mg Tablet 800 Mg PO TIDWMEALS Vitals/I & O Vital Sign - Last 24 Hours 11/23/20 11/23/20 11/23/20 11/23/20 11:59 15:59 17:30 19:00 Temp 97.8 97.8 97.9 97.8 97.8 97.9 Pulse 114 75 114 63 Resp 20 20 20 B/P (MAP) 154/64 (94) 147/65 (92) 154/64 153/72 (99) Pulse Ox 91 97 99 O2 Delivery Room Air Room Air Room Air 11/23/20 11/23/20 11/23/20 11/23/20 20:00 20:28 20:29 23:05 Temp 97.7 97.7 Pulse 63 63 60 Resp 20 B/P (MAP) 153/72 153/72 178/80 (112) Pulse Ox 95 O2 Delivery Room Air Room Air 11/24/20 11/24/20 11/24/20 11/24/20 04:30 07:00 08:00 08:15 Temp 98.1 98.0 98.1 98.0 Pulse 66 66 Resp 20 18 B/P (MAP) 153/73 (99) 177/70 (105) Pulse Ox 97 96 O2 Delivery Room Air Room Air Room Air Room Air 11/24/20 11/24/20 11/24/20 11/24/20 08:16 08:16 08:17 08:17 Pulse 66 66 66 66 B/P (MAP) 177/70 177/70 177/70 177/70 11/24/20 11/24/20 08:21 11:00 Temp 97.7 97.7 Pulse 66 71 Resp 18 B/P (MAP) 177/70 188/95 (126) Pulse Ox 97 O2 Delivery Room Air Intake and Output 11/23/20 11/23/20 11/24/20 15:00 23:00 07:00 Output Total 0 ml Balance 0 ml Justicifation of Admission Dx: Justifications for Admission: Justification of Admission Dx: Yes Chronic Renal Failure: Hypertension Altered Mental Status: Altered Mental Status MARILUZ ALAN MD Nov 24, 2020 11:58
--- NOTE | 2020-11-24 11:59 | RAD ---
MRI BRAIN WO History:Reason: falls, AMS, TREMORS, DIPLOPIA / Spl. Instructions: / History: Technique: Multiplanar, multi sequential MR imaging was performed of the brain without contrast. Comparison: CT September 02, 2020 Findings: Multiple sequences are motion degraded. No acute infarct. No intracranial hemorrhage. No mass effect. No hydrocephalus. Moderate brain parenchymal volume loss. Mild foci of FLAIR hyperintensities within the hemispheric wh ite matter, most often due to chronic microvascular ischemia or related to prior insult. Imaged orbits are unremarkable. Right maxillary sinus mucous retention cyst. Mild maxillary sinus muc osal thickening. Mastoid air cells are clear. Impression: 1. No acute intracranial abnormality. 2. Moderate brain parenchymal volume loss for age. Electronically signed by: Joss Maldonado DO (11/24/2020 11:57 AM) [id number]
[2020-11-24] MEDS ORDERED: DIALYSIS PATIENT. MC PRN ×2 (12:15)
[2020-11-24] MEDS ORDERED: IV NORMAL SALINE 1000ML BAG 1,000 ML IV PRN (12:15)
--- NOTE | 2020-11-24 12:50 | PDOC ---
Renal-Progress Notes Subjective Notes Notes STILL COMPLAINING OF FALLING History of Present Illness Hx of present illness NO ACUTE CHANGES Vitals Vitals Vital Signs Date Time Temp Pulse Resp B/P (MAP) Pulse Ox O2 Delivery O2 Flow Rate FiO2 11/24/20 11:00 97.7 71 18 188/95 (126) 97 Room Air 97.7 Weight Weight [ ] I.O. Intake and Output Intake and Output 11/24/20 07:00 Output Total 0 ml Balance 0 ml Output Urine Total 0 ml # Voids 2 Labs Labs Laboratory Tests Test 11/23/20 16:50 11/23/20 20:25 11/24/20 07:36 11/24/20 07:45 Glucose (Fingerstick) 168 mg/dL (70-99) 138 mg/dL (70-99) 69 mg/dL (70-99) Hemoglobin 9.2 g/dL (13.0-17.5) Sodium Level 136 mmol/L (136-145) Potassium Level 4.4 mmol/L (3.5-5.1) Chloride Level 98 mmol/L (98-107) Carbon Dioxide Level 25 mmol/L (21-32) Anion Gap 13 (6-14) Blood Urea Nitrogen 41 mg/dL (8-26) Creatinine 7.4 mg/dL (0.7-1.3) Estimated GFR (Cockcroft-Gault) 7.8 Glucose Level 69 mg/dL (70-99) Calcium Level 8.3 mg/dL (8.5-10.1) Phosphorus Level 4.3 mg/dL (2.6-4.7) Magnesium Level 2.5 mg/dL (1.8-2.4) Albumin 2.5 g/dL (3.4-5.0) Test 11/24/20 11:46 Glucose (Fingerstick) 129 mg/dL (70-99) Review of Systems Constitutional: yes: alert Ears/Nose/Throat: Yes: no symptom reported Eyes: Yes: no symptom reported Pulmonary: Yes no symptom reported Cardiovascular: Yes no symptom reported Gastrointestional: Yes: no symptom reported Genitourinary: Yes: no symptom reported Musculoskeletal: Yes: muscle stiffness Skin: Yes no symptom reported Psychiatric/Neurological: Yes: depressed, weakness, anxiety Physical Exam General Appearance: no apparent distress, febrile Respiratory: bilateral CTA Heart: S1S2 Abdomen: soft, bowel sounds present Genitourinary: bladder flat Extremities: pulses present Neurology: alert Assessment Assessment IMP ESRD ANEMIA HTN FALLS PLAN HD TODAY UF TO DW MRI BRAIN TODAY NEURO FOLLOWING INCREASE PEPE-I TO BID BO DOHERTY MD Nov 24, 2020 12:49
--- NOTE | 2020-11-24 12:51 | NUR ---
Wound Care Pt off unit in dialysis at time of WC team arrival. Will assess 11/25
--- NOTE | 2020-11-24 14:14 | NUR ---
SW following for discharge planning. Spoke with RN and reviewed chart. Pt resides in LTC at [facility]. Pt on room air, oral medications, ADA diet. Pt to have MRI today. SW phoned and faxed clinicals to [facility] for coordination of care. SW following.
[2020-11-24 15:00] VITALS: BP 157/84
[2020-11-24 19:00] VITALS: BP 144/65
[2020-11-24] MEDS: ZOLPIDEM 5 MG TABLET. PO PRN (21:32)
[2020-11-24] MEDS: ATORVASTATIN CALCIUM 40 MG TABLET. PO SCH (21:32)
[2020-11-24 23:00] VITALS: BP 133/73
[2020-11-25 03:00] VITALS: BP 111/66
[2020-11-25] MEDS: HEPARIN for SUB-Q USE 5,000 UNIT/ML VIAL. SQ SCH (04:08)
--- NOTE | 2020-11-25 06:51 | PDOC ---
PROGRESS NOTES Date of Service: DATE: 11/25/20 TIME: 06:51 Chief Complaint Chief Complaint ====DISCHARGE HOSPITAL SUMMARY [facility] DATE OF ADMIT 11-22-20 DATE OF DISCHARGE 11-25-20 CONSULTATIONS NEPHROLOGY, NEUROLOGY PROCEDURES MRI HEAD COMPLICATIONS NONE D/C MEDS SEE MAR Acute toxic encephalopathy, RESOLVED Acute narcotic medication overdose Acute hypoglycemia ESRD on HD 11-25 REFUSES SNF CARE AMA, DESIRES HOME HEALTH Plan: Serial glucose and mental status monitoring Narcan as needed, D50 as needed We will hold home insulin at this time, goal blood glucose [id number] Will consult nephrology for continuation of HD Patient was recently discharged from our service on 11/19 with Morphine 15 mg 3 times daily. Upon discharge patient AVOID narcotic medication Hold narcotics the patient is alert and oriented enough to request. Resume home medications FEN - ADA diet PPX - Heparin FULL CODE Dispo - inpatient for above D/C 11-25 HOME HEALTH, SEE PCP IN 5-7 DAYS D/C PLANNING 37 MIN History of Present Illness History of Present Illness Patient is a 55-year-old male with extensive past medical history including DM2, ESRD on HD Tuesday/Tuesday/Tuesday, who presents from his [facility] due to concerns of altered mental status. He was evaluated earlier this morning by [facility] staff and noted to be unresponsive and hypoglycemic with blood sugar 59. He was given oral glucose by staff and blood sugar came up to 89. Upon arrival in the ED, pinpoint pupils were noted and he was given naltrexone x2 with improvement in mental status, however he was noted to be hypoxic as well. He did remain persistently hypoglycemic despite treatment with D50. Will admit patient for further medical management. 11/23: I discussion with patient yesterday about discontinuing all morphine narcotics, as these are metabolized by the kidneys and will build up in this patient causing his admitting symptoms of narcotic OD. Had meaningful conversation with patient about his experience. He tearfully reflects on his narcotic OD he has a near experience. Discussed discharging with tramadol and fentanyl, as his are metabolized by liver. Will ask neurology to evaluate patient for safety concerns of regular Tramadol use in patient with history of seizures on Depakote, as this medication can lower seizure threshold. Patient also reports worsening vision, concerned for post concussive syndrome. Nephrology to evaluate for possible HD today. Will monitor for adequate pain control on tramadol and fentanyl. He may possibly discharge tomorrow after his regular hemodialysis day. 11/24 MRI HEAD no acute change cr 7.4 to dialysis today D/W RN DISCUSSED MULT[place]ALL[place] RISK OF additional injury Vitals Vitals Vital Signs Date Time Temp Pulse Resp B/P (MAP) Pulse Ox O2 Delivery O2 Flow Rate FiO2 11/25/20 03:00 98.3 65 18 111/66 (81) 95 Room Air 98.3 Physical Exam General: Alert, Oriented X3, Cooperative, No acute distress Heart: Regular rate, Normal S1, No murmurs Lungs: Clear Abdomen: Normal bowel sounds, Soft Extremities: No clubbing, No cyanosis Skin: No rashes, No breakdown Labs LABS Laboratory Tests Test 11/24/20 07:36 11/24/20 07:45 11/24/20 11:46 11/24/20 16:39 Glucose (Fingerstick) 69 mg/dL (70-99) 129 mg/dL (70-99) 214 mg/dL (70-99) Hemoglobin 9.2 g/dL (13.0-17.5) Sodium Level 136 mmol/L (136-145) Potassium Level 4.4 mmol/L (3.5-5.1) Chloride Level 98 mmol/L (98-107) Carbon Dioxide Level 25 mmol/L (21-32) Anion Gap 13 (6-14) Blood Urea Nitrogen 41 mg/dL (8-26) Creatinine 7.4 mg/dL (0.7-1.3) Estimated GFR (Cockcroft-Gault) 7.8 Glucose Level 69 mg/dL (70-99) Calcium Level 8.3 mg/dL (8.5-10.1) Phosphorus Level 4.3 mg/dL (2.6-4.7) Magnesium Level 2.5 mg/dL (1.8-2.4) Albumin 2.5 g/dL (3.4-5.0) Test 11/24/20 21:36 Glucose (Fingerstick) 144 mg/dL (70-99) Assessment and Plan Assessmemt and Plan Problems Medical Problems: (1) Altered mental status Status: Acute (2) Hypoglycemia Status: Acute Comment Review of Relevant I have reviewed the following items nelda (where applicable) has been applied. Labs Laboratory Tests Test 11/23/20 08:10 11/23/20 08:23 11/23/20 12:05 11/23/20 16:50 White Blood Count 6.4 x10^3/uL (4.0-11.0) Red Blood Count 2.72 x10^6/uL (4.30-5.70) Hemoglobin 8.7 g/dL (13.0-17.5) Hematocrit 26.7 % (39.0-53.0) Mean Corpuscular Volume 98 fL (79-100) Mean Corpuscular Hemoglobin 32 pg (25-35) Mean Corpuscular Hemoglobin Concent 33 g/dL (31-37) Red Cell Distribution Width 13.0 % (11.5-14.5) Platelet Count 145 x10^3/uL (140-400) Neutrophils (%) (Auto) 54 % (31-73) Lymphocytes (%) (Auto) 28 % (24-48) Monocytes (%) (Auto) 15 % (0-9) Eosinophils (%) (Auto) 3 % (0-3) Basophils (%) (Auto) 0 % (0-3) Neutrophils # (Auto) 3.4 x10^3/uL (1.8-7.7) Lymphocytes # (Auto) 1.8 x10^3/uL (1.0-4.8) Monocytes # (Auto) 0.9 x10^3/uL (0.0-1.1) Eosinophils # (Auto) 0.2 x10^3/uL (0.0-0.7) Basophils # (Auto) 0.0 x10^3/uL (0.0-0.2) Sodium Level 136 mmol/L (136-145) Potassium Level 3.8 mmol/L (3.5-5.1) Chloride Level 100 mmol/L (98-107) Carbon Dioxide Level 27 mmol/L (21-32) Anion Gap 9 (6-14) Blood Urea Nitrogen 34 mg/dL (8-26) Creatinine 6.5 mg/dL (0.7-1.3) Estimated GFR (Cockcroft-Gault) 9.0 BUN/Creatinine Ratio 5 (6-20) Glucose Level 193 mg/dL (70-99) Calcium Level 7.7 mg/dL (8.5-10.1) Total Bilirubin 0.3 mg/dL (0.2-1.0) Aspartate Amino Transf (AST/SGOT) 39 U/L (15-37) Alanine Aminotransferase (ALT/SGPT) 24 U/L (16-63) Alkaline Phosphatase 85 U/L (46-116) Total Protein 5.9 g/dL (6.4-8.2) Albumin 2.2 g/dL (3.4-5.0) Albumin/Globulin Ratio 0.6 (1.0-1.7) Glucose (Fingerstick) 185 mg/dL (70-99) 88 mg/dL (70-99) 168 mg/dL (70-99) Test 11/23/20 20:25 11/24/20 07:36 11/24/20 07:45 11/24/20 11:46 Glucose (Fingerstick) 138 mg/dL (70-99) 69 mg/dL (70-99) 129 mg/dL (70-99) Hemoglobin 9.2 g/dL (13.0-17.5) Sodium Level 136 mmol/L (136-145) Potassium Level 4.4 mmol/L (3.5-5.1) Chloride Level 98 mmol/L (98-107) Carbon Dioxide Level 25 mmol/L (21-32) Anion Gap 13 (6-14) Blood Urea Nitrogen 41 mg/dL (8-26) Creatinine 7.4 mg/dL (0.7-1.3) Estimated GFR (Cockcroft-Gault) 7.8 Glucose Level 69 mg/dL (70-99) Calcium Level 8.3 mg/dL (8.5-10.1) Phosphorus Level 4.3 mg/dL (2.6-4.7) Magnesium Level 2.5 mg/dL (1.8-2.4) Albumin 2.5 g/dL (3.4-5.0) Test 11/24/20 16:39 11/24/20 21:36 Glucose (Fingerstick) 214 mg/dL (70-99) 144 mg/dL (70-99) Laboratory Tests Test 11/24/20 07:36 11/24/20 07:45 11/24/20 11:46 11/24/20 16:39 Glucose (Fingerstick) 69 mg/dL (70-99) 129 mg/dL (70-99) 214 mg/dL (70-99) Hemoglobin 9.2 g/dL (13.0-17.5) Sodium Level 136 mmol/L (136-145) Potassium Level 4.4 mmol/L (3.5-5.1) Chloride Level 98 mmol/L (98-107) Carbon Dioxide Level 25 mmol/L (21-32) Anion Gap 13 (6-14) Blood Urea Nitrogen 41 mg/dL (8-26) Creatinine 7.4 mg/dL (0.7-1.3) Estimated GFR (Cockcroft-Gault) 7.8 Glucose Level 69 mg/dL (70-99) Calcium Level 8.3 mg/dL (8.5-10.1) Phosphorus Level 4.3 mg/dL (2.6-4.7) Magnesium Level 2.5 mg/dL (1.8-2.4) Albumin 2.5 g/dL (3.4-5.0) Test 11/24/20 21:36 Glucose (Fingerstick) 144 mg/dL (70-99) Medications Current Medications Dextrose (Dextrose 50%-Water Syringe) 25 gm STK-MED ONCE IV ; Start 11/22/20 at 02:39; Stop 11/22/20 at 02:39; Status DC Naloxone HCl (Narcan) 0.4 mg STK-MED ONCE .ROUTE ; Start 11/22/20 at 02:44; Stop 11/22/20 at 02:45; Status DC Sodium Chloride 500 ml @ 500 mls/hr Q1H IV ; Start 11/22/20 at 03:00; Stop 11/22/20 at 03:55; Status DC Naloxone HCl (Narcan) 0.4 mg 1X ONCE IV Last administered on 11/22/20at 02:46; Start 11/22/20 at 03:00; Stop 11/22/20 at 03:01; Status DC Dextrose (Dextrose 50%-Water Syringe) 50 gm 1X ONCE IV Last administered on 11/22/20at 02:40; Start 11/22/20 at 03:00; Stop 11/22/20 at 03:01; Status DC Sodium Chloride 500 ml @ 500 mls/hr Q1H ONCE IV Last administered on 11/22/20at 03:02; Start 11/22/20 at 04:00; Stop 11/22/20 at 04:59; Status DC Naloxone HCl (Narcan) 0.4 mg 1X ONCE IV Last administered on 11/22/20at 04:00; Start 11/22/20 at 04:00; Stop 11/22/20 at 04:20; Status DC Sodium Chloride 1,000 ml @ 1,000 mls/hr 1X ONCE IV ; Start 11/22/20 at 04:15; Stop 11/22/20 at 05:14; Status DC Dextrose/Sodium Chloride 1,000 ml @ 100 mls/hr 1X ONCE IV Last administered on 11/22/20at 04:10; Start 11/22/20 at 04:15; Stop 11/22/20 at 14:14; Status DC Ondansetron HCl (Zofran) 4 mg PRN Q8HRS PRN IV NAUSEA/VOMITING; Start 11/22/20 at 04:15; Stop 11/22/20 at 18:13; Status DC Dextrose (Dextrose 50%-Water Syringe) 50 gm 1X ONCE IV ; Start 11/22/20 at 05:45; Stop 11/22/20 at 05:46; Status DC Dextrose (Dextrose 50%-Water Syringe) 25 gm 1X ONCE IV Last administered on 11/22/20at 04:51; Start 11/22/20 at 05:45; Stop 11/22/20 at 05:47; Status DC Naloxone HCl (Narcan) 0.4 mg PRN Q2MIN PRN IV SEE COMMENTS; Start 11/22/20 at 07:00 Insulin Human Lispro (HumaLOG) 0-9 UNITS TIDWMEALS SQ Last administered on 11/24/20at 16:46; Start 11/22/20 at 08:00 Dextrose (Dextrose 50%-Water Syringe) 12.5 gm PRN Q15MIN PRN IV SEE COMMENTS; Start 11/22/20 at 07:15 Acetaminophen (Tylenol) 650 mg PRN Q6HRS PRN PO Headaches, Temp > 101.5F; Start 11/22/20 at 07:30; Status Cancel Amlodipine Besylate (Norvasc) 10 mg DAILY PO Last administered on 11/24/20at 08:17; Start 11/22/20 at 09:00 Aspirin (Aspirin Chewable) 81 mg DAILY PO Last administered on 11/24/20 08:16; Start 11/22/20 at 09:00 Atorvastatin Calcium (Lipitor) 40 mg QHS PO Last administered on 11/24/20 21:32; Start 11/22/20 at 21:00 Carvedilol (Coreg) 25 mg BIDWMEALS PO Last administered on 11/24/20 16:42; Start 11/22/20 at 08:00 Divalproex Sodium (Depakote) 1,000 mg BID PO Last administered on 11/24/20 21:33; Start 11/22/20 at 09:00 Docusate Sodium (Colace) 100 mg DAILY PO Last administered on 11/22/20 10:25; Start 11/22/20 at 09:00 Gabapentin (Neurontin) 100 mg TID PO Last administered on 11/23/20 14:02; Start 11/22/20 at 09:00; Stop 11/23/20 at 16:46; Status DC Hydralazine HCl (Apresoline) 50 mg BID PO Last administered on 11/24/20 21:35; Start 11/22/20 at 09:00 Lisinopril (Prinivil) 20 mg DAILY PO Last administered on 11/24/20 08:16; Start 11/22/20 at 09:00; Stop 11/24/20 at 12:50; Status DC Lubiprostone (Amitiza) 24 mcg DAILYAC PO Last administered on 11/24/20 08:15; Start 11/22/20 at 08:00 Nitroglycerin (Nitrostat) 0.4 mg PRN Q5MIN PRN SL CHEST PAIN; Start 11/22/20 at 07:30 Ranolazine (Ranexa) 500 mg BID PO Last administered on 11/24/20 21:33; Start 11/22/20 at 09:00 Sevelamer Carbonate (Renvela) 800 mg TIDWMEALS PO Last administered on 11/24/20 16:42; Start 11/22/20 at 08:00 Tramadol HCl (Ultram) 100 mg PRN Q6HRS PRN PO PAIN Last administered on 11/24/20 16:42; Start 11/22/20 at 07:45 Fentanyl (Duragesic 75mcg/ Hr Patch) 1 patch Q3DAYS TD Last administered on 11/22/20 11:25; Start 11/22/20 at 09:00 Ondansetron HCl (Zofran) 4 mg PRN Q6HRS PRN IVP NAUSEA/VOMITING Last administered on 11/24/20at 11:45; Start 11/22/20 at 08:00 Al Hydroxide/Mg Hydroxide (Mylanta Plus Xs) 30 ml PRN Q3HRS PRN PO HEARTBURN / GAS Last administered on 11/22/20at 19:23; Start 11/22/20 at 08:00 Calcium Carbonate/ Glycine (Tums) 500 mg PRN Q3HRS PRN PO UPSET STOMACH Last administered on 11/22/20 19:24; Start 11/22/20 at 08:00 Acetaminophen (Tylenol) 650 mg PRN Q6HRS PRN PO Headaches, Temp > 101.5F; Start 11/22/20 at 08:00 Heparin Sodium (Porcine) (Heparin Sodium) 5,000 unit Q8HRS SQ Last administered on 11/23/20at 14:07; Start 11/22/20 at 08:00 Pantoprazole Sodium (Protonix) 40 mg DAILYAC PO Last administered on 11/24/20at 08:16; Start 11/22/20 at 18:30 Magnesium Sulfate 50 ml @ 25 mls/hr PRN DAILY PRN IV for Mag < 1.7 on am labs; Start 11/23/20 at 08:45 Darbepoetin Hayden (ARANESP for DIALYSIS PTS) 60 mcg Kuo SQ ; Start 11/23/20 at 21:00 Zolpidem Tartrate (Ambien) 5 mg PRN QHS PRN PO INSOMNIA Last administered on 11/24/20 21:32; Start 11/23/20 at 14:00 Gabapentin (Neurontin) 200 mg BID92 PO Last administered on 11/24/20at 15:36; S tart 11/24/20 at 09:00 Gabapentin (Neurontin) 100 mg HS PO Last administered on 11/24/20at 21:33; Start 11/23/20 at 21:00 Sodium Chloride 1,000 ml @ 1,000 mls/hr Q1H PRN IV hypotension; Start 11/24/20 at 12:15; Stop 11/24/20 at 18:14; Status DC Info (PHARMACY MONITORING -- do not chart) 1 each PRN DAILY PRN MC SEE COMMENTS; Start 11/24/20 at 12:15 Info (PHARMACY MONITORING -- do not chart) 1 each PRN DAILY PRN MC SEE COMMENTS; Start 11/24/20 at 12:15 Lisinopril (Prinivil) 20 mg BID PO Last administered on 11/24/20at 21:32; Start 11/24/20 at 21:00 Active Scripts Active Morphine Sulfate Er (Morphine Sulfate) 15 Mg Tablet.er 1 Tab PO TID 6 Days Percocet 10-325 Mg Tablet (Oxycodone/Acetaminophen) 1 Each Tablet 1 Tab PO QIDPRN PRN MDD 4 Tablet(s) 6 Days Tylenol (Acetaminophen) 325 Mg Tablet 650 Mg PO PRN Q6HRS PRN 14 Days Carvedilol (Carvedilol) 12.5 Mg Tablet 25 Mg PO BIDWMEALS 30 Days Hydralazine Hcl 50 Mg Tablet 50 Mg PO BID 30 Days Atorvastatin Calcium 40 Mg Tablet 40 Mg PO QHS 30 Days Gabapentin (Gabapentin) 100 Mg Capsule 100 Mg PO TID 30 Days [Diclofenac Sodium] 100 GM Gel..gram. 1 Christo TP BID 30 Days Reported Tresiba (Insulin Degludec) 100 Unit/1 Ml Vial 42 Unit SQ HS Ranexa (Ranolazine) 500 Mg Tab.er.12h 500 Mg PO BID Renal-Irvin Tablet (Folic Acid/Vit Bcomp,C) 0.8 Mg Tablet 0.8 Mg PO DAILY Novolog (Insulin Aspart) 100 Unit/1 Ml Vial 0 SQ PRN TID PRN Lisinopril 20 Mg Tablet 20 Mg PO DAILY Zofran (Ondansetron Hcl) 4 Mg Tablet 1 Tab PO PRN Q4HRS PRN NITROGLYCERIN SubLingual (Nitroglycerin) 0.4 Mg Tab.subl 0.4 Mg SL PRN Q5MIN PRN Citalopram Hbr (Citalopram Hydrobromide) 40 Mg Tablet 40 Mg PO HS Protonix (Pantoprazole Sodium) 20 Mg Tablet.dr 40 Mg PO DAILY Docusate Sodium 100 Mg Capsule 1 Cap PO DAILY Divalproex Sodium 500 Mg Tablet.dr 2 Tab PO BID Aspirin 81 Mg Tab.chew 1 Tab PO DAILY Amitiza (Lubiprostone) 24 Mcg Capsule 1 Cap PO DAILY Norvasc (Amlodipine Besylate) 10 Mg Tablet 10 Mg PO DAILY Renvela (Sevelamer Carbonate) 800 Mg Tablet 800 Mg PO TIDWMEALS Vitals/I & O Vital Sign - Last 24 Hours 11/24/20 11/24/20 11/24/20 11/24/20 07:00 08:00 08:15 08:16 Temp 98.0 98.0 Pulse 66 66 Resp 18 B/P (MAP) 177/70 (105) 177/70 Pulse Ox 96 O2 Delivery Room Air Room Air Room Air 11/24/20 11/24/20 11/24/20 11/24/20 08:16 08:17 08:17 08:21 Pulse 66 66 66 66 B/P (MAP) 177/70 177/70 177/70 177/70 11/24/20 11/24/20 11/24/20 11/24/20 11:00 15:00 16:42 19:00 Temp 97.7 97.8 98.0 97.7 97.8 98.0 Pulse 71 73 73 69 Resp 18 18 18 B/P (MAP) 188/95 (126) 157/84 (108) 157/84 144/65 (91) Pulse Ox 97 97 94 O2 Delivery Room Air Room Air Room Air 11/24/20 11/24/20 11/24/20 11/24/20 20:00 21:32 21:33 21:35 Pulse 69 69 69 B/P (MAP) 144/65 144/65 144/65 O2 Delivery Room Air 11/24/20 11/25/20 23:00 03:00 Temp 98.3 98.3 98.3 98.3 Pulse 69 65 Resp 18 18 B/P (MAP) 133/73 (93) 111/66 (81) Pulse Ox 94 95 O2 Delivery Room Air Room Air Intake and Output 11/24/20 11/24/20 11/25/20 15:00 23:00 07:00 Intake Total 400 ml 600 ml Output Total 0 ml Balance 400 ml 600 ml 0 ml Nutrition Consultation Dietary Evaluation: Recommendations by RD: Dietary education by RD, Increase Calorie Intake, Protein supplementation Comments: Renal / ADA diet DBL protein portions ( meat ) Nepro oral nutrition supplements Tid per pt request REC mvi and vit c per wound protocal pending on wound assessment Expected Outcomes/Goals: to meet > 75% est nutr needs Malnutrition Findings: Food and Nutrition Intake (Mod: <75% est energy req 7days Weight Status: Obese Justicifation of Admission Dx: Justifications for Admission: Justification of Admission Dx: Yes Chronic Renal Failure: Hypertension Altered Mental Status: Altered Mental Status SALOMÓN HADDAD MD Nov 25, 2020 06:51
[2020-11-25 07:00] VITALS: BP 146/80
[2020-11-25 07:56] LABS: ALBUMIN 2.2 g/dL (3.4-5.0); CALCIUM 8.1 mg/dL (8.5-10.1); CREATININE 5.5 mg/dL (0.7-1.3); GFR 10.9; PHOSPHORUS 3.3 mg/dL (2.6-4.7); POTASSIUM 4.5 mmol/L (3.5-5.1)
[2020-11-25] MEDS: INSULIN LISPRO 300 UNITS/3 ML VIAL. SQ SCH ×2 (08:00→12:00)
[2020-11-25] MEDS: ASPIRIN CHEWABLE 81 MG TABLET. PO SCH (09:23)
[2020-11-25] MEDS: RANOLAZINE 500 MG TAB.ER.12H PO SCH (09:23)
[2020-11-25] MEDS: LUBIPROSTONE 24 MCG CAPSULE PO SCH (09:23)
[2020-11-25] MEDS: SEVELAMER CARBONATE 800 MG TABLET. PO SCH ×2 (09:23→13:25)
[2020-11-25] MEDS: PANTOPRAZOLE 40 MG TABLET.DR. PO SCH (09:24)
[2020-11-25] MEDS: LISINOPRIL 20 MG TABLET PO SCH (09:24)
[2020-11-25] MEDS: DIVALPROEX DELAYED RELEASE 500 MG TABLET.DR. PO SCH (09:24)
[2020-11-25] MEDS: CARVEDILOL 12.5 MG TABLET. PO SCH (09:25)
[2020-11-25] MEDS: GABAPENTIN 100 MG CAPSULE. PO SCH (09:26)
[2020-11-25] MEDS: fentaNYL 75MCG/HR PATCH 1 PATCH PATCH.TD72 TD SCH (09:31)
[2020-11-25] MEDS: DOCUSATE SODIUM 100 MG CAPSULE. PO SCH (09:36)
--- NOTE | 2020-11-25 11:42 | PDOC3 ---
Discharge Summary Date of Admission: Nov 22, 2020 Date of Discharge: Nov 25, 2020 Follow-Up: 3-5 days Admitting Diagnosis comment: ====DISCHARGE HOSPITAL SUMMARY [facility] DATE OF ADMIT 11-22-20 DATE OF DISCHARGE 11-25-20 CONSULTATIONS NEPHROLOGY, NEUROLOGY PROCEDURES MRI HEAD COMPLICATIONS NONE D/C MEDS SEE MAR DISCHARGE DX Acute toxic encephalopathy, RESOLVED Acute narcotic medication overdose Acute hypoglycemia ESRD on HD 11-25 REFUSES SNF CARE AMA, DESIRES HOME HEALTH Plan: Serial glucose and mental status monitoring Narcan as needed, D50 as needed We will hold home insulin at this time, goal blood glucose [id number] Will consult nephrology for continuation of HD Patient was recently discharged from our service on 11/19 with Morphine 15 mg 3 times daily. Upon discharge patient AVOID narcotic medication Hold narcotics the patient is alert and oriented enough to request. Resume home medications FEN - ADA diet PPX - Heparin FULL CODE Dispo - inpatient for above D/C 11-25 HOME HEALTH, SEE PCP IN 5-7 DAYS D/C PLANNING 37 MIN History of Present Illness History of Present Illness Patient is a 55-year-old male with extensive past medical history including DM2, ESRD on HD Tuesday/Tuesday/Tuesday, who presented from his custodial due to concerns of altered mental status. He was evaluated earlier this morning by custodial staff and noted to be unresponsive and hypoglycemic with blood sugar 59. He was given oral glucose by staff and blood sugar came up to 89. Upon arrival in the ED, pinpoint pupils were noted and he was given naltrexone x2 with improvement in mental status, however he was noted to be hypoxic as well. He did remain persistently hypoglycemic despite treatment with D50. Will admit patient for further medical management. 11/23: I discussion with patient yesterday about discontinuing all morphine narcotics, as these are metabolized by the kidneys and will build up in this patient causing his admitting symptoms of narcotic OD. Had meaningful conversation with patient about his experience. He tearfully reflects on his narcotic OD he has a near experience. Discussed discharging with tramadol and fentanyl, as his are metabolized by liver. Will ask neurology to evaluate patient for safety concerns of regular Tramadol use in patient with history of seizures on Depakote, as this medication can lower seizure threshold. Patient also reports worsening vision, concerned for post concussive syndrome. Nephrol socorro to evaluate for possible HD today. Will monitor for adequate pain control on tramadol and fentanyl. He may possibly discharge tomorrow after his regular hemodialysis day. 11/24 MRI HEAD no acute change cr 7.4 to dialysis today D/W RN DISCUSSED [place] RISK OF additional injury 11-25 d/c today with home health refused SNF Vitals Vitals Vital Signs Date Time Temp Pulse Resp B/P (MAP) Pulse Ox O2 Delivery O2 Flow Rate FiO2 11/25/20 03:00 98.3 65 18 111/66 (81) 95 Room Air 98.3 Physical Exam General: Alert, Oriented X3, Cooperative, No acute distress Heart: Regular rate, Normal S1, No murmurs Lungs: Clear Abdomen: Normal bowel sounds, Soft Extremities: No clubbing, No cyanosis Skin: No rashes, No breakdown FINAL DIAGNOSIS Problems Medical Problems: (1) Altered mental status Status: Acute (2) Hypoglycemia Status: Acute Brief Hospital Course Mr. Bedolla is a 55 old [sex] who presented with [ACUTE METABOLIC ENCEPHALOPATHY ] CONDITION AT DISCHARGE: Improved Discharge Medications Current Medications Dextrose (Dextrose 50%-Water Syringe) 25 gm STK-MED ONCE IV ; Start 11/22/20 at 02:39; Stop 11/22/20 at 02:39; Status DC Naloxone HCl (Narcan) 0.4 mg STK-MED ONCE .ROUTE ; Start 11/22/20 at 02:44; Sto p 11/22/20 at 02:45; Status DC Sodium Chloride 500 ml @ 500 mls/hr Q1H IV ; Start 11/22/20 at 03:00; Stop 11/22/20 at 03:55; Status DC Naloxone HCl (Narcan) 0.4 mg 1X ONCE IV Last administered on 11/22/20at 02:46; Start 11/22/20 at 03:00; Stop 11/22/20 at 03:01; Status DC Dextrose (Dextrose 50%-Water Syringe) 50 gm 1X ONCE IV Last administered on 11/22/20at 02:40; Start 11/22/20 at 03:00; Stop 11/22/20 at 03:01; Status DC Sodium Chloride 500 ml @ 500 mls/hr Q1H ONCE IV Last administered on 11/22/20at 03:02; Start 11/22/20 at 04:00; Stop 11/22/20 at 04:59; Status DC Naloxone HCl (Narcan) 0.4 mg 1X ONCE IV Last administered on 11/22/20at 04:00; Start 11/22/20 at 04:00; Stop 11/22/20 at 04:20; Status DC Sodium Chloride 1,000 ml @ 1,000 mls/hr 1X ONCE IV ; Start 11/22/20 at 04:15; Stop 11/22/20 at 05:14; Status DC Dextrose/Sodium Chloride 1,000 ml @ 100 mls/hr 1X ONCE IV Last administered on 11/22/20at 04:10; Start 11/22/20 at 04:15; Stop 11/22/20 at 14:14; Status DC Ondansetron HCl (Zofran) 4 mg PRN Q8HRS PRN IV NAUSEA/VOMITING; Start 11/22/20 at 04:15; Stop 11/22/20 at 18:13; Status DC Dextrose (Dextrose 50%-Water Syringe) 50 gm 1X ONCE IV ; Start 11/22/20 at 05:45; Stop 11/22/20 at 05:46; Status DC Dextrose (Dextrose 50%-Water Syringe) 25 gm 1X ONCE IV Last administered on 11/22/20at 04:51; Start 11/22/20 at 05:45; Stop 11/22/20 at 05:47; Status DC Naloxone HCl (Narcan) 0.4 mg PRN Q2MIN PRN IV SEE COMMENTS; Start 11/22/20 at 07:00 Insulin Human Lispro (HumaLOG) 0-9 UNITS TIDWMEALS SQ Last administered on 11/24/20at 16:46; Start 11/22/20 at 08:00 Dextrose (Dextrose 50%-Water Syringe) 12.5 gm PRN Q15MIN PRN IV SEE COMMENTS; Start 11/22/20 at 07:15 Acetaminophen (Tylenol) 650 mg PRN Q6HRS PRN PO Headaches, Temp > 101.5F; Start 11/22/20 at 07:30; Status Cancel Amlodipine Besylate (Norvasc) 10 mg DAILY PO Last administered on 11/25/20 09:25; Start 11/22/20 at 09:00 Aspirin (Aspirin Chewable) 81 mg DAILY PO Last administered on 11/25/20 09:23; Start 11/22/20 at 09:00 Atorvastatin Calcium (Lipitor) 40 mg QHS PO Last administered on 11/24/20 21:32; Start 11/22/20 at 21:00 Carvedilol (Coreg) 25 mg BIDWMEALS PO Last administered on 11/25/20 09:25; Start 11/22/20 at 08:00 Divalproex Sodium (Depakote) 1,000 mg BID PO Last administered on 11/25/20 09:24; Start 11/22/20 at 09:00 Docusate Sodium (Colace) 100 mg DAILY PO Last administered on 11/22/20 10:25; Start 11/22/20 at 09:00 Gabapentin (Neurontin) 100 mg TID PO Last administered on 11/23/20 14:02; Start 11/22/20 at 09:00; Stop 11/23/20 at 16:46; Status DC Hydralazine HCl (Apresoline) 50 mg BID PO Last administered on 11/25/20 09:24; Start 11/22/20 at 09:00 Lisinopril (Prinivil) 20 mg DAILY PO Last administered on 11/24/20 08:16; Start 11/22/20 at 09:00; Stop 11/24/20 at 12:50; Status DC Lubiprostone (Amitiza) 24 mcg DAILYAC PO Last administered on 11/25/20 09:23; Start 11/22/20 at 08:00 Nitroglycerin (Nitrostat) 0.4 mg PRN Q5MIN PRN SL CHEST PAIN; Start 11/22/20 at 07:30 Ranolazine (Ranexa) 500 mg BID PO Last administered on 11/25/20 09:23; Start 11/22/20 at 09:00 Sevelamer Carbonate (Renvela) 800 mg TIDWMEALS PO Last administered on 11/25/20 09:23; Start 11/22/20 at 08:00 Tramadol HCl (Ultram) 100 mg PRN Q6HRS PRN PO PAIN Last administered on 1/25/21at 16:42; Start 11/22/20 at 07:45 Fentanyl (Duragesic 75mcg/ Hr Patch) 1 patch Q3DAYS TD Last administered on 11/25/20at 09:31; Start 11/22/20 at 09:00 Ondansetron HCl (Zofran) 4 mg PRN Q6HRS PRN IVP NAUSEA/VOMITING Last administered on 11/24/20at 11:45; Start 11/22/20 at 08:00 Al Hydroxide/Mg Hydroxide (Mylanta Plus Xs) 30 ml PRN Q3HRS PRN PO HEARTBURN / GAS Last administered on 11/22/20 19:23; Start 11/22/20 at 08:00 Calcium Carbonate/ Glycine (Tums) 500 mg PRN Q3HRS PRN PO UPSET STOMACH Last administered on 11/22/20at 19:24; Start 11/22/20 at 08:00 Acetaminophen (Tylenol) 650 mg PRN Q6HRS PRN PO Headaches, Temp > 101.5F; Start 11/22/20 at 08:00 Heparin Sodium (Porcine) (Heparin Sodium) 5,000 unit Q8HRS SQ Last administered on 11/23/20at 14:07; Start 11/22/20 at 08:00 Pantoprazole Sodium (Protonix) 40 mg DAILYAC PO Last administered on 11/25/20at 09:24; Start 11/22/20 at 18:30 Magnesium Sulfate 50 ml @ 25 mls/hr PRN DAILY PRN IV for Mag < 1.7 on am labs; Start 11/23/20 at 08:45 Darbepoetin Hayden (ARANESP for DIALYSIS PTS) 60 mcg Kuo SQ ; Start 11/23/20 at 21:00 Zolpidem Tartrate (Ambien) 5 mg PRN QHS PRN PO INSOMNIA Last administered on 11/24/20 21:32; Start 11/23/20 at 14:00 Gabapentin (Neurontin) 200 mg BID92 PO Last administered on 11/25/20at 09:26; Start 11/24/20 at 09:00 Gabapentin (Neurontin) 100 mg HS PO Last administered on 11/24/20at 21:33; Start 11/23/20 at 21:00 Sodium Chloride 1,000 ml @ 1,000 mls/hr Q1H PRN IV hypotension; Start 11/24/20 at 12:15; Stop 11/24/20 at 18:14; Status DC Info (PHARMACY MONITORING -- do not chart) 1 each PRN DAILY PRN MC SEE COMMENTS; Start 11/24/20 at 12:15 Info (PHARMACY MONITORING -- do not chart) 1 each PRN DAILY PRN MC SEE COMMENTS; Start 11/24/20 at 12:15 Lisinopril (Prinivil) 20 mg BID PO Last administered on 11/25/20at 09:24; Start 11/24/20 at 21:00 Active Scripts Active Morphine Sulfate Er (Morphine Sulfate) 15 Mg Tablet.er 1 Tab PO TID 6 Days Percocet 10-325 Mg Tablet (Oxycodone/Acetaminophen) 1 Each Tablet 1 Tab PO QIDPRN PRN MDD 4 Tablet(s) 6 Days Tylenol (Acetaminophen) 325 Mg Tablet 650 Mg PO PRN Q6HRS PRN 14 Days Carvedilol (Carvedilol) 12.5 Mg Tablet 25 Mg PO BIDWMEALS 30 Days Hydralazine Hcl 50 Mg Tablet 50 Mg PO BID 30 Days Atorvastatin Calcium 40 Mg Tablet 40 Mg PO QHS 30 Days Gabapentin (Gabapentin) 100 Mg Capsule 100 Mg PO TID 30 Days [Diclofenac Sodium] 100 GM Gel..gram. 1 Christo TP BID 30 Days Reported Tresiba (Insulin Degludec) 100 Unit/1 Ml Vial 42 Unit SQ HS Ranexa (Ranolazine) 500 Mg Tab.er.12h 500 Mg PO BID Renal-Irvin Tablet (Folic Acid/Vit Bcomp,C) 0.8 Mg Tablet 0.8 Mg PO DAILY Novolog (Insulin Aspart) 100 Unit/1 Ml Vial 0 SQ PRN TID PRN Lisinopril 20 Mg Tablet 20 Mg PO DAILY Zofran (Ondansetron Hcl) 4 Mg Tablet 1 Tab PO PRN Q4HRS PRN NITROGLYCERIN SubLingual (Nitroglycerin) 0.4 Mg Tab.subl 0.4 Mg SL PRN Q5MIN PRN Citalopram Hbr (Citalopram Hydrobromide) 40 Mg Tablet 40 Mg PO HS Protonix (Pantoprazole Sodium) 20 Mg Tablet.dr 40 Mg PO DAILY Docusate Sodium 100 Mg Capsule 1 Cap PO DAILY Divalproex Sodium 500 Mg Tablet. 2 Tab PO BID Aspirin 81 Mg Tab.chew 1 Tab PO DAILY Amitiza (Lubiprostone) 24 Mcg Capsule 1 Cap PO DAILY Norvasc (Amlodipine Besylate) 10 Mg Tablet 10 Mg PO DAILY Renvela (Sevelamer Carbonate) 800 Mg Tablet 800 Mg PO TIDWMEALS Vital Signs Vital Signs Date Time Temp Pulse Resp B/P (MAP) Pulse Ox O2 Delivery O2 Flow Rate FiO2 11/25/20 09:31 Room Air 11/25/20 09:25 66 146/80 11/25/20 07:00 98.9 16 96 98.9 Labs Laboratory Tests Test 11/23/20 12:05 11/23/20 16:50 11/23/20 20:25 11/24/20 07:36 Glucose (Fingerstick) 88 mg/dL (70-99) 168 mg/dL (70-99) 138 mg/dL (70-99) 69 mg/dL (70-99) Test 11/24/20 07:45 11/24/20 11:46 11/24/20 16:39 11/24/20 21:36 Hemoglobin 9.2 g/dL (13.0-17.5) Sodium Level 136 mmol/L (136-145) Potassium Level 4.4 mmol/L (3.5-5.1) Chloride Level 98 mmol/L (98-107) Carbon Dioxide Level 25 mmol/L (21-32) Anion Gap 13 (6-14) Blood Urea Nitrogen 41 mg/dL (8-26) Creatinine 7.4 mg/dL (0.7-1.3) Estimated GFR (Cockcroft-Gault) 7.8 Glucose Level 69 mg/dL (70-99) Calcium Level 8.3 mg/dL (8.5-10.1) Phosphorus Level 4.3 mg/dL (2.6-4.7) Magnesium Level 2.5 mg/dL (1.8-2.4) Albumin 2.5 g/dL (3.4-5.0) Glucose (Fingerstick) 129 mg/dL (70-99) 214 mg/dL (70-99) 144 mg/dL (70-99) Test 11/25/20 07:10 11/25/20 07:36 Sodium Level 135 mmol/L (136-145) Potassium Level 4.5 mmol/L (3.5-5.1) Chloride Level 100 mmol/L (98-107) Carbon Dioxide Level 28 mmol/L (21-32) Anion Gap 7 (6-14) Blood Urea Nitrogen 30 mg/dL (8-26) Creatinine 5.5 mg/dL (0.7-1.3) Estimated GFR (Cockcroft-Gault) 10.9 Glucose Level 84 mg/dL (70-99) Calcium Level 8.1 mg/dL (8.5-10.1) Phosphorus Level 3.3 mg/dL (2.6-4.7) Magnesium Level 2.3 mg/dL (1.8-2.4) Albumin 2.2 g/dL (3.4-5.0) Glucose (Fingerstick) 81 mg/dL (70-99) Laboratory Tests Test 11/24/20 11:46 11/24/20 16:39 11/24/20 21:36 11/25/20 07:10 Glucose (Fingerstick) 129 mg/dL (70-99) 214 mg/dL (70-99) 144 mg/dL (70-99) Sodium Level 135 mmol/L (136-145) Potassium Level 4.5 mmol/L (3.5-5.1) Chloride Level 100 mmol/L (98-107) Carbon Dioxide Level 28 mmol/L (21-32) Anion Gap 7 (6-14) Blood Urea Nitrogen 30 mg/dL (8-26) Creatinine 5.5 mg/dL (0.7-1.3) Estimated GFR (Cockcroft-Gault) 10.9 Glucose Level 84 mg/dL (70-99) Calcium Level 8.1 mg/dL (8.5-10.1) Phosphorus Level 3.3 mg/dL (2.6-4.7) Magnesium Level 2.3 mg/dL (1.8-2.4) Albumin 2.2 g/dL (3.4-5.0) Test 11/25/20 07:36 Glucose (Fingerstick) 81 mg/dL (70-99) Allergies Allergies Coded Allergies Type Severity Reaction Last Updated Verified hydromorphone Allergy Severe Anaphylaxis 06/24/20 Yes Disposition/Orders: D/C to Home w/ HH Justicifation of Admission Dx: Justifications for Admission: Justification of Admission Dx: Yes Chronic Renal Failure: Hypertension Altered Mental Status: Altered Mental Status SALOMÓN HADDAD MD Nov 25, 2020 11:41
[2020-11-25] MEDS ORDERED: LISI-130 PO (11:46)
[2020-11-25] MEDS ORDERED: INSU100V35 SQ (11:46)
[2020-11-25] MEDS ORDERED: GABA-585 PO ×2 (11:46)
[2020-11-25] MEDS ORDERED: FENT1PAT19 TD (11:46)
--- NOTE | 2020-11-25 11:48 | SNU/HH DC ---
DISCHARGE WITH HOME HEALTH DISCHARGE INFORMATION: Final Diagnosis: Problems Medical Problems: (1) Altered mental status Status: Acute (2) Hypoglycemia Status: Acute Condition on Discharge: Stable CODE STATUS: Code Status: Full HOME HEALTH: Face to Face: I certify this patient is under my care and that I, or a nurse practitioner or physician's commercial real estate assistant working with me, had a face to face encounter that meets the physician face to face encounter requirements with this patient on []. Medical Complications: Falls, Other (ESRD) Custodial For: Assess & Educate Safety, Medication Management RN For Eval/Treatment: Yes Physical Therapy For: Evalulation/Treatment Occupational Therapy For: Evaluation/Treatment Speech Language Pathology For: Evaluation/Treatment Home Health Aide For: Self-care PLASTIC WORKER For: Community Resources Pt Meets Homebound Status: Fatigue w/ amb., Frequent falls w/ injury, Limited distance walking POST DISCHARGE ORDERS: Activity Instructions for Disc: Activity as tolerated Weight Bearing Status after Di: As tolerated DIET AFTER DISCHARGE: Renal Wound/Incision Care: Change dressing CHECKS AFTER DISCHARGE: Checks after discharge: Check blood press - daily, Check blood sugar, ac/hs, Weigh Yourself Daily FOLLOW-UP: PCP to follow Home Health: PCP IN 4=7 DAYS TREATMENT/EQUIPMENT ORDERS: Adaptive Equipment Issued: None CERTIFICATION STATEMENT: Certification Statement: Certification Statement: Based on the above finding, I certify that this patient is confined to the home and needs intermittent fci care, physical therapy and/or speech therapy, or continues to need occupational therapy.~ This patient is under my care, and I have initiated the establishment of the plan of care.~ This patient will be followed by myself or a community physician who will periodically review the plan of care. Home Meds Active Scripts Insulin Lispro (Admelog) 100 Unit/1 Ml Vial, 0 UNITS SQ TIDWMEALS for DIABETES for 30 Days, #1 EACH Prov:SALOMÓN HADDAD MD 11/25/20 Gabapentin (GABAPENTIN ) 100 Mg Capsule, 100 MG PO HS for PAIN for 30 Days, #3 0 CAP Prov:SALOMÓN HADDAD MD 11/25/20 Gabapentin (GABAPENTIN ) 100 Mg Capsule, 200 MG PO BID92 for PAIN for 14 Days, #60 CAP Prov:SALOMÓN HADDAD MD 11/25/20 Lisinopril (LISINOPRIL) 40 Mg Tablet, 20 MG PO BID for HYPERTENSION for 30 Days, #30 TAB Prov:SALOMÓN HADDAD MD 11/25/20 Fentanyl (FENTANYL 75mcg/hr) 1 Each Patch.td72, 1 PATCH TD Q3DAYS for SEVERE PAIN for 6 Days, #2 PATCH Prov:SALOMÓN HADDAD MD 11/25/20 Acetaminophen (TYLENOL) 325 Mg Tablet, 650 MG PO PRN Q6HRS PRN for Headaches, Temp > 101.5F for 14 Days, #30 TAB Prov:SALOMÓN HADDAD MD 08/10/20 Carvedilol (CARVEDILOL ) 12.5 Mg Tablet, 25 MG PO BIDWMEALS for heart for 30 Days, #120 TAB Prov:SALOMÓN HADDAD MD 08/10/20 Hydralazine Hcl (HYDRALAZINE HCL) 50 Mg Tablet, 50 MG PO BID for blood pressure for 30 Days, #60 TAB Prov:SALOMÓN HADDAD MD 08/10/20 Atorvastatin Calcium (ATORVASTATIN CALCIUM) 40 Mg Tablet, 40 MG PO QHS for cholesterol for 30 Days, #30 TAB Prov:SALOMÓN HADDAD MD 08/10/20 Reported Medications Ranolazine (RANEXA) 500 Mg Tab.er.12h, 500 MG PO BID for Angina, TAB.SR 05/11/20 Folic Acid/Vit Bcomp,C (Renal-Irvin Tablet) 0.8 Mg Tablet, 0.8 MG PO DAILY for supplement, TAB 04/03/20 Insulin Aspart (NOVOLOG) 100 Unit/1 Ml Vial, 0 SQ PRN TID PRN for sliding scale, VIAL 04/03/20 Ondansetron Hcl (ZOFRAN) 4 Mg Tablet, 1 TAB PO PRN Q4HRS PRN for NAUSEA, #20 TAB 12/30/19 Nitroglycerin (NITROGLYCERIN SubLingual) 0.4 Mg Tab.subl, 0.4 MG SL PRN Q5MIN PRN for CHEST PAIN, BOTTLE 12/30/19 Citalopram Hydrobromide (CITALOPRAM HBR) 40 Mg Tablet, 40 MG PO HS for anxiety, TAB 12/30/19 Pantoprazole Sodium (PROTONIX) 20 Mg Tablet.dr, 40 MG PO DAILY for , TAB 07/16/19 Docusate Sodium (DOCUSATE SODIUM) 100 Mg Capsule, 1 CAP PO DAILY for , #30 CAP 07/16/19 Divalproex Sodium (DIVALPROEX SODIUM) 500 Mg Tablet.dr, 2 TAB PO BID for , #60 TAB 1 Refill 07/16/19 Aspirin (ASPIRIN) 81 Mg Tab.chew, 1 TAB PO DAILY for , #30 TAB 3 Refills 07/16/19 Lubiprostone (AMITIZA) 24 Mcg Capsule, 1 CAP PO DAILY for , #60 CAP 5 Refills 07/16/19 Amlodipine Besylate (NORVASC) 10 Mg Tablet, 10 MG PO DAILY, TAB 07/24/18 Sevelamer Carbonate (RENVELA) 800 Mg Tablet, 800 MG PO TIDWMEALS, TAB 07/24/18 Discontinued Reported Medications Insulin Degludec (Tresiba) 100 Unit/1 Ml Vial, 42 UNIT SQ HS for control blood sugar, EACH 06/23/20 Lisinopril (LISINOPRIL) 20 Mg Tablet, 20 MG PO DAILY for FOR HYPERTENSION, #30 TAB 0 Refills 01/17/20 Discontinued Scripts Morphine Sulfate (MORPHINE SULFATE ER) 15 Mg Tablet.er, 1 TAB PO TID for pain for 6 Days, #18 TAB Prov:GALI ROMERO MD 11/19/20 Oxycodone/Apap 10-325 (PERCOCET 10-325 MG TABLET ) 1 Each Tablet, 1 TAB PO QIDPRN PRN for PAIN MDD 4 Tablet(s) for 6 Days, #24 TAB 0 Refills Prov:GALI ROMERO MD 11/19/20 Gabapentin (GABAPENTIN ) 100 Mg Capsule, 100 MG PO TID for NEUROGENIC PAIN for 30 Days, #90 CAP Prov:GALI ROMERO MD 05/21/20 [Diclofenac Sodium 1% Topical] 100 GM GEL..GRAM. No Conflict Check, 1 MAYRA TP BID for Costochondritis for 30 Days, #60 EACH Prov:GALI ROMERO MD 03/14/20 Oxycodone/Apap 5-325 (PERCOCET 5-325 MG TABLET ) 1 Each Tablet, 1 TAB PO PRN Q6HRS PRN for PAIN, #10 TAB 0 Refills Prov:JERSON WILLIAMSON APRN 09/02/20 SALOMÓN HADDAD MD Nov 25, 2020 11:48
--- NOTE | 2020-11-25 11:55 | NUR ---
Wound Care: No wounds noted on head to toe skin assessment. Dry, intact, stable scabs noted to BLE from "dog bite", healed pressure ulcer to R buttock, pink scar tissue. Applied barrier cream. S/O care for now. Report to Venus SCHRADER
[2020-11-25 12:00] VITALS: BP 139/61
--- NOTE | 2020-11-25 12:09 | PDOC ---
PROGRESS NOTES Date of Service DATE: 11/25/20 TIME: 12:07 Assessment Problems Medical Problems: (1) Altered mental status Status: Acute (2) Hypoglycemia Status: Acute Hypoglycemic encephalopathy, also encephalopathy from narcotics History of strokes History of seizures History of multiple falls Peripheral neuropathy related to diabetes End-stage renal disease, diabetes, chronic pain Note MRI essentially normal Plan He was scheduled to see my nurse practitioner on 11/18, he can reschedule the appointment Okay for discharge Subjective He wants to know why he is falling, I tell him it is a combination of his prior strokes, arthritis, and peripheral neuropathy. He wants to know why he has lost cognition since his fall in 2019, I told him that he can follow-up with my nurse practitioner and we will do some further evaluation, possibly neuropsychological testing. Objective Vital Signs Date Time Temp Pulse Resp B/P (MAP) Pulse Ox O2 Delivery O2 Flow Rate FiO2 11/25/20 09:31 Room Air 11/25/20 09:25 66 146/80 11/25/20 07:00 98.9 16 96 98.9 Intake and Output 11/25/20 07:00 Intake Total 1000 ml Output Total 0 ml Balance 1000 ml Intake Oral 1000 ml Output Urine Total 0 ml PHYSICAL EXAM Alert. Oriented to time, place and person. PERRL. EOMI. CN: no focal findings. Muscle tone: normal. Muscle strength: 4/5 DTR: 1+ Plantar reflex: Flexor Gait: not examined in bed. Sensory exam: Stocking loss. No cerebellar signs elicited. Review of Relevant I have reviewed the following items nelda (where applicable) has been applied. Labs Laboratory Tests Test 11/23/20 16:50 11/23/20 20:25 11/24/20 07:36 11/24/20 07:45 Glucose (Fingerstick) 168 mg/dL (70-99) 138 mg/dL (70-99) 69 mg/dL (70-99) Hemoglobin 9.2 g/dL (13.0-17.5) Sodium Level 136 mmol/L (136-145) Potassium Level 4.4 mmol/L (3.5-5.1) Chloride Level 98 mmol/L (98-107) Carbon Dioxide Level 25 mmol/L (21-32) Anion Gap 13 (6-14) Blood Urea Nitrogen 41 mg/dL (8-26) Creatinine 7.4 mg/dL (0.7-1.3) Estimated GFR (Cockcroft-Gault) 7.8 Glucose Level 69 mg/dL (70-99) Calcium Level 8.3 mg/dL (8.5-10.1) Phosphorus Level 4.3 mg/dL (2.6-4.7) Magnesium Level 2.5 mg/dL (1.8-2.4) Albumin 2.5 g/dL (3.4-5.0) Test 11/24/20 11:46 11/24/20 16:39 11/24/20 21:36 11/25/20 07:10 Glucose (Fingerstick) 129 mg/dL (70-99) 214 mg/dL (70-99) 144 mg/dL (70-99) Sodium Level 135 mmol/L (136-145) Potassium Level 4.5 mmol/L (3.5-5.1) Chloride Level 100 mmol/L (98-107) Carbon Dioxide Level 28 mmol/L (21-32) Anion Gap 7 (6-14) Blood Urea Nitrogen 30 mg/dL (8-26) Creatinine 5.5 mg/dL (0.7-1.3) Estimated GFR (Cockcroft-Gault) 10.9 Glucose Level 84 mg/dL (70-99) Calcium Level 8.1 mg/dL (8.5-10.1) Phosphorus Level 3.3 mg/dL (2.6-4.7) Magnesium Level 2.3 mg/dL (1.8-2.4) Albumin 2.2 g/dL (3.4-5.0) Test 11/25/20 07:36 Glucose (Fingerstick) 81 mg/dL (70-99) Laboratory Tests Test 11/24/20 16:39 11/24/20 21:36 11/25/20 07:10 11/25/20 07:36 Glucose (Fingerstick) 214 mg/dL (70-99) 144 mg/dL (70-99) 81 mg/dL (70-99) Sodium Level 135 mmol/L (136-145) Potassium Level 4.5 mmol/L (3.5-5.1) Chloride Level 100 mmol/L (98-107) Carbon Dioxide Level 28 mmol/L (21-32) Anion Gap 7 (6-14) Blood Urea Nitrogen 30 mg/dL (8-26) Creatinine 5.5 mg/dL (0.7-1.3) Estimated GFR (Cockcroft-Gault) 10.9 Glucose Level 84 mg/dL (70-99) Calcium Level 8.1 mg/dL (8.5-10.1) Phosphorus Level 3.3 mg/dL (2.6-4.7) Magnesium Level 2.3 mg/dL (1.8-2.4) Albumin 2.2 g/dL (3.4-5.0) Medications Current Medications Dextrose (Dextrose 50%-Water Syringe) 25 gm STK-MED ONCE IV ; Start 11/22/20 at 02:39; Stop 11/22/20 at 02:39; Status DC Naloxone HCl (Narcan) 0.4 mg STK-MED ONCE .ROUTE ; Start 11/22/20 at 02:44; Stop 11/22/20 at 02:45; Status DC Sodium Chloride 500 ml @ 500 mls/hr Q1H IV ; Start 11/22/20 at 03:00; Stop 11/22/20 at 03:55; Status DC Naloxone HCl (Narcan) 0.4 mg 1X ONCE IV Last administered on 11/22/20at 02:46; Start 11/22/20 at 03:00; Stop 11/22/20 at 03:01; Status DC Dextrose (Dextrose 50%-Water Syringe) 50 gm 1X ONCE IV Last administered on 11/22/20at 02:40; Start 11/22/20 at 03:00; Stop 11/22/20 at 03:01; Status DC Sodium Chloride 500 ml @ 500 mls/hr Q1H ONCE IV Last administered on 11/22/20at 03:02; Start 11/22/20 at 04:00; Stop 11/22/20 at 04:59; Status DC Naloxone HCl (Narcan) 0.4 mg 1X ONCE IV Last administered on 11/22/20at 04:00; Start 11/22/20 at 04:00; Stop 11/22/20 at 04:20; Status DC Sodium Chloride 1,000 ml @ 1,000 mls/hr 1X ONCE IV ; Start 11/22/20 at 04:15; Stop 11/22/20 at 05:14; Status DC Dextrose/Sodium Chloride 1,000 ml @ 100 mls/hr 1X ONCE IV Last administered on 11/22/20at 04:10; Start 11/22/20 at 04:15; Stop 11/22/20 at 14:14; Status DC Ondansetron HCl (Zofran) 4 mg PRN Q8HRS PRN IV NAUSEA/VOMITING; Start 11/22/20 at 04:15; Stop 11/22/20 at 18:13; Status DC Dextrose (Dextrose 50%-Water Syringe) 50 gm 1X ONCE IV ; Start 11/22/20 at 05:45; Stop 11/22/20 at 05:46; Status DC Dextrose (Dextrose 50%-Water Syringe) 25 gm 1X ONCE IV Last administered on 11/22/20at 04:51; Start 11/22/20 at 05:45; Stop 11/22/20 at 05:47; Status DC Naloxone HCl (Narcan) 0.4 mg PRN Q2MIN PRN IV SEE COMMENTS; Start 11/22/20 at 07:00 Insulin Human Lispro (HumaLOG) 0-9 UNITS TIDWMEALS SQ Last administered on 11/24/20at 16:46; Start 11/22/20 at 08:00 Dextrose (Dextrose 50%-Water Syringe) 12.5 gm PRN Q15MIN PRN IV SEE COMMENTS; Start 11/22/20 at 07:15 Acetaminophen (Tylenol) 650 mg PRN Q6HRS PRN PO Headaches, Temp > 101.5F; Start 11/22/20 at 07:30; Status Cancel Amlodipine Besylate (Norvasc) 10 mg DAILY PO Last administered on 11/25/20at 09:25; Start 11/22/20 at 09:00 Aspirin (Aspirin Chewable) 81 mg DAILY PO Last administered on 11/25/20at 09:23; Start 11/22/20 at 09:00 Atorvastatin Calcium (Lipitor) 40 mg QHS PO Last administered on 11/24/20at 21:32; Start 11/22/20 at 21:00 Carvedilol (Coreg) 25 mg BIDWMEALS PO Last administered on 11/25/20at 09:25; Start 11/22/20 at 08:00 Divalproex Sodium (Depakote) 1,000 mg BID PO Last administered on 11/25/20at 09:24; Start 11/22/20 at 09:00 Docusate Sodium (Colace) 100 mg DAILY PO Last administered on 11/22/20at 10:25; Start 11/22/20 at 09:00 Gabapentin (Neurontin) 100 mg TID PO Last administered on 11/23/20at 14:02; Start 11/22/20 at 09:00; Stop 11/23/20 at 16:46; Status DC Hydralazine HCl (Apresoline) 50 mg BID PO Last administered on 11/25/20at 09:24; Start 11/22/20 at 09:00 Lisinopril (Prinivil) 20 mg DAILY PO Last administered on 11/24/20 08:16; Start 11/22/20 at 09:00; Stop 11/24/20 at 12:50; Status DC Lubiprostone (Amitiza) 24 mcg DAILYAC PO Last administered on 11/25/20at 09:23; Start 11/22/20 at 08:00 Nitroglycerin (Nitrostat) 0.4 mg PRN Q5MIN PRN SL CHEST PAIN; Start 11/22/20 at 07:30 Ranolazine (Ranexa) 500 mg BID PO Last administered on 11/25/20 09:23; Start 11/22/20 at 09:00 Sevelamer Carbonate (Renvela) 800 mg TIDWMEALS PO Last administered on 11/25/20 09:23; Start 11/22/20 at 08:00 Tramadol HCl (Ultram) 100 mg PRN Q6HRS PRN PO PAIN Last administered on 11/24/20 16:42; Start 11/22/20 at 07:45 Fentanyl (Duragesic 75mcg/ Hr Patch) 1 patch Q3DAYS TD Last administered on 11/25/20 09:31; Start 11/22/20 at 09:00 Ondansetron HCl (Zofran) 4 mg PRN Q6HRS PRN IVP NAUSEA/VOMITING Last administered on 11/24/20 11:45; Start 11/22/20 at 08:00 Al Hydroxide/Mg Hydroxide (Mylanta Plus Xs) 30 ml PRN Q3HRS PRN PO HEARTBURN / GAS Last administered on 11/22/20at 19:23; Start 11/22/20 at 08:00 Calcium Carbonate/ Glycine (Tums) 500 mg PRN Q3HRS PRN PO UPSET STOMACH Last administered on 11/22/20at 19:24; Start 11/22/20 at 08:00 Acetaminophen (Tylenol) 650 mg PRN Q6HRS PRN PO Headaches, Temp > 101.5F; Start 11/22/20 at 08:00 Heparin Sodium (Porcine) (Heparin Sodium) 5,000 unit Q8HRS SQ Last administered on 11/23/20at 14:07; Start 11/22/20 at 08:00 Pantoprazole Sodium (Protonix) 40 mg DAILYAC PO Last administered on 11/25/20at 09:24; Start 11/22/20 at 18:30 Magnesium Sulfate 50 ml @ 25 mls/hr PRN DAILY PRN IV for Mag < 1.7 on am labs; Start 11/23/20 at 08:45 Darbepoetin Hayden (ARANESP for DIALYSIS PTS) 60 mcg Kuo SQ ; Start 11/23/20 at 21:00 Zolpidem Tartrate (Ambien) 5 mg PRN QHS PRN PO INSOMNIA Last administered on 11/24/20at 21:32; Start 11/23/20 at 14:00 Gabapentin (Neurontin) 200 mg BID92 PO Last administered on 11/25/20at 09:26; Start 11/24/20 at 09:00 Gabapentin (Neurontin) 100 mg HS PO Last administered on 11/24/20at 21:33; Start 11/23/20 at 21:00 Sodium Chloride 1,000 ml @ 1,000 mls/hr Q1H PRN IV hypotension; Start 11/24/20 at 12:15; Stop 11/24/20 at 18:14; Status DC Info (PHARMACY MONITORING -- do not chart) 1 each PRN DAILY PRN MC SEE COMMENTS; Start 11/24/20 at 12:15 Info (PHARMACY MONITORING -- do not chart) 1 each PRN DAILY PRN MC SEE COMMENTS; Start 11/24/20 at 12:15 Lisinopril (Prinivil) 20 mg BID PO Last administered on 11/25/20at 09:24; Start 11/24/20 at 21:00 Active Scripts Active Admelog (Insulin Lispro) 100 Unit/1 Ml Vial 0 Units SQ TIDWMEALS 30 Days Gabapentin (Gabapentin) 100 Mg Capsule 100 Mg PO HS 30 Days Gabapentin (Gabapentin) 100 Mg Capsule 200 Mg PO BID92 14 Days Lisinopril 40 Mg Tablet 20 Mg PO BID 30 Days FENTANYL 75mcg/hr (Fentanyl) 1 Each Patch.td72 1 Patch TD Q3DAYS 6 Days Tylenol (Acetaminophen) 325 Mg Tablet 650 Mg PO PRN Q6HRS PRN 14 Days Carvedilol (Carvedilol) 12.5 Mg Tablet 25 Mg PO BIDWMEALS 30 Days Hydralazine Hcl 50 Mg Tablet 50 Mg PO BID 30 Days Atorvastatin Calcium 40 Mg Tablet 40 Mg PO QHS 30 Days Reported Ranexa (Ranolazine) 500 Mg Tab.er.12h 500 Mg PO BID Renal-Irvin Tablet (Folic Acid/Vit Bcomp,C) 0.8 Mg Tablet 0.8 Mg PO DAILY Novolog (Insulin Aspart) 100 Unit/1 Ml Vial 0 SQ PRN TID PRN Zofran (Ondansetron Hcl) 4 Mg Tablet 1 Tab PO PRN Q4HRS PRN NITROGLYCERIN SubLingual (Nitroglycerin) 0.4 Mg Tab.subl 0.4 Mg SL PRN Q5MIN PRN Citalopram Hbr (Citalopram Hydrobromide) 40 Mg Tablet 40 Mg PO HS Protonix (Pantoprazole Sodium) 20 Mg Tablet.dr 40 Mg PO DAILY Docusate Sodium 100 Mg Capsule 1 Cap PO DAILY Divalproex Sodium 500 Mg Tablet.dr 2 Tab PO BID Aspirin 81 Mg Tab.chew 1 Tab PO DAILY Amitiza (Lubiprostone) 24 Mcg Capsule 1 Cap PO DAILY Norvasc (Amlodipine Besylate) 10 Mg Tablet 10 Mg PO DAILY Renvela (Sevelamer Carbonate) 800 Mg Tablet 800 Mg PO TIDWMEALS Vitals/I & O Vital Sign - Last 24 Hours 11/24/20 11/24/20 11/24/20 11/24/20 15:00 16:42 19:00 20:00 Temp 97.8 98.0 97.8 98.0 Pulse 73 73 69 Resp 18 18 B/P (MAP) 157/84 (108) 157/84 144/65 (91) Pulse Ox 97 94 O2 Delivery Room Air Room Air Room Air 11/24/20 11/24/20 11/24/20 11/24/20 21:32 21:33 21:35 23:00 Temp 98.3 98.3 Pulse 69 69 69 69 Resp 18 B/P (MAP) 144/65 144/65 144/65 133/73 (93) Pulse Ox 94 O2 Delivery Room Air 11/25/20 11/25/20 11/25/20 11/25/20 03:00 07:00 09:23 09:24 Temp 98.3 98.9 98.3 98.9 Pulse 65 66 66 66 Resp 18 16 B/P (MAP) 111/66 (81) 146/80 (102) 146/80 146/80 Pulse Ox 95 96 O2 Delivery Room Air Room Air 11/25/20 11/25/20 11/25/20 11/25/20 09:24 09:25 09:25 09:31 Pulse 66 66 66 B/P (MAP) 146/80 146/80 146/80 O2 Delivery Room Air Intake and Output 11/24/20 11/24/20 11/25/20 15:00 23:00 07:00 Intake Total 400 ml 600 ml Output Total 0 ml Balance 400 ml 600 ml 0 ml Images MRI BRAIN WO History:Reason: falls, AMS, TREMORS, DIPLOPIA / Spl. Instructions: / History: Technique: Multiplanar, multi sequential MR imaging was performed of the brain without contrast. Comparison: CT September 02, 2020 Findings: Multiple sequences are motion degraded. No acute infarct. No intracranial hemorrhage. No mass effect. No hydrocephalus. Moderate brain parenchymal volume loss. Mild foci of FLAIR hyperintensities within the hemispheric white matter, most often due to chronic microvascular ischemia or related to prior insult. Imaged orbits are unremarkable. Right maxillary sinus mucous retention cyst. Mild maxillary sinus mucosal thickening. Mastoid air cells are clear. Impression: 1. No acute intracranial abnormality. 2. Moderate brain parenchymal volume loss for age. Justicifation of Admission Dx: Justifications for Admission: Justification of Admission Dx: Yes Chronic Renal Failure: Hypertension Altered Mental Status: Altered Mental Status MARILUZ ALAN MD Nov 25, 2020 12:09
--- NOTE | 2020-11-25 12:23 | NUR ---
SW following for discharge planning. Spoke with RN and reviewed chart. ANA met with pt and pt's today. Pt declining return to [facility]. HH orders phoned and faxed to [facility] at request of pt and family. Pt choice of vendor form completed. to transport home. No further SW needs at this time. Addendum: 11/25/20 at 1431 by ROCIO PEREZ [facility] called and pt is on their do no readmit list per non-compliance. ANA spoke with Kaylin from [facility] and pt is also on the do not re-admit list with both [facility] and [facility]. ANA spoke with pt and pt's again and they would like SW to continue to find HH services and stated no preference in provider. ANA faxed referral to [facility]. Addendum: 11/25/20 at 1647 by ROCIO PEREZ Pt accepted with [facility] per [facility]. Start of care is 11/26. Notified pt's . PCP is Dr. Watt ([phone]). Pt at high risk for readmission. No further SW needs at this time.
--- NOTE | 2020-11-25 12:55 | PDOC ---
Renal-Progress Notes Subjective Notes Notes NO NEW COMPLAINTS History of Present Illness Hx of present illness STABLE Vitals Vitals Vital Signs Date Time Temp Pulse Resp B/P (MAP) Pulse Ox O2 Delivery O2 Flow Rate FiO2 11/25/20 09:31 Room Air 11/25/20 09:25 66 146/80 11/25/20 07:00 98.9 16 96 98.9 Weight Weight [ ] I.O. Intake and Output Intake and Output 11/25/20 07:00 Intake Total 1000 ml Output Total 0 ml Balance 1000 ml Intake Oral 1000 ml Output Urine Total 0 ml Labs Labs Laboratory Tests Test 11/24/20 16:39 11/24/20 21:36 11/25/20 07:10 11/25/20 07:36 Glucose (Fingerstick) 214 mg/dL (70-99) 144 mg/dL (70-99) 81 mg/dL (70-99) Sodium Level 135 mmol/L (136-145) Potassium Level 4.5 mmol/L (3.5-5.1) Chloride Level 100 mmol/L (98-107) Carbon Dioxide Level 28 mmol/L (21-32) Anion Gap 7 (6-14) Blood Urea Nitrogen 30 mg/dL (8-26) Creatinine 5.5 mg/dL (0.7-1.3) Estimated GFR (Cockcroft-Gault) 10.9 Glucose Level 84 mg/dL (70-99) Calcium Level 8.1 mg/dL (8.5-10.1) Phosphorus Level 3.3 mg/dL (2.6-4.7) Magnesium Level 2.3 mg/dL (1.8-2.4) Albumin 2.2 g/dL (3.4-5.0) Test 11/25/20 11:58 Glucose (Fingerstick) 213 mg/dL (70-99) Review of Systems Constitutional: yes: alert Ears/Nose/Throat: Yes: no symptom reported Eyes: Yes: no symptom reported Pulmonary: Yes no symptom reported Cardiovascular: Yes no symptom reported Gastrointestional: Yes: no symptom reported Genitourinary: Yes: no symptom reported Musculoskeletal: Yes: muscle stiffness Skin: Yes no symptom reported Psychiatric/Neurological: Yes: depressed, weakness, anxiety Physical Exam General Appearance: no apparent distress, febrile Respiratory: bilateral CTA Heart: S1S2 Abdomen: soft, bowel sounds present Genitourinary: bladder flat Extremities: pulses present Neurology: alert Assessment Assessment [facility]D ANEMIA HTN FALLS PLAN HD TOMORROW D/C PLANS NOTED BO DOHERTY MD Nov 25, 2020 12:55
--- NOTE | 2020-11-25 13:30 | NUR ---
Discharge Note: Patient was discharged home with home health services. Patients IV was discontinued by RAFAELA without any complications. Patients at the bedside at the time of discharge education. Patient was given discharge summary/instructions, follow-ups, prescriptions and educational material. Patient did not have any further questions or concerns. Patient was taken down to the main entrance via wheelchair with all personal belongings accompanied by RAFAELA Barajas, where his was waiting for him to take him home.
--- NOTE | 2020-11-25 15:41 | EKG ---
[facility] [address] [place] [id number] Test Date: 2020-11-22 Test Time: 04:00:27 Pat Name: JULIAN GARCÍA Department: Room: 536 1 Gender: M Deputy Assessor: : 1965 Requested By: PEG REA Order Number: [id number] Reading MD: Measurements Intervals [place] Rate: 81 P: 18 DE: 180 QRS: -27 QRSD: 96 T: 72 QT: 404 QTc: 470 Interpretive Statements SINUS RHYTHM LEFT ATRIAL ABNORMALITY LEFTWARD AXIS R-S TRANSITION ZONE IN V LEADS DISPLACED TO THE LEFT T ABNORMALITY IN HIGH LATERAL LEADS ABNORMAL ECG RI6.02 Compared to ECG 11/22/2020 03:15:49 Atrial abnormality now present Possible ischemia no longer present T-wave abnormality still present
[2020-12-22] MEDS ORDERED: QUET100T4 PO (21:58)
[2021-02-05] MEDS ORDERED: ISOS30TA68 PO (17:14)
[2021-02-07] MEDS ORDERED: CLOP75TA PO (10:46)
[2021-02-07] MEDS ORDERED: HYDR-2869 PO (10:46)
[2021-02-07] MEDS ORDERED: CARV12.511 PO (10:46)
[2021-02-17] MEDS ORDERED: ISOS30TA68 PO (10:39)
== END 2020-11-25 13:30 | disposition home health service (06) | DRG 917 ==
LOC: ER 02:28 → 5 NORTH 04:29
PROVIDERS: ADMIT Internal Medicine; ATTEND Internal Medicine
PROC: 5A1D70Z Performance of Urinary Filtration, Intermittent, Less than 6 Hours Per Day (ICD-10-PCS; principal; 2020-11-24)
DX: T40.601A Poisoning by unspecified narcotics, accidental (unintentional), initial encounter (principal); G92 Toxic encephalopathy; N18.6 End stage renal disease; I13.2 Hypertensive heart and chronic kidney disease with heart failure and with stage 5 chronic kidney disease, or end stage renal disease; Z99.2 Dependence on renal dialysis; E11.22 Type 2 diabetes mellitus with diabetic chronic kidney disease; E11.649 Type 2 diabetes mellitus with hypoglycemia without coma; I25.10 Atherosclerotic heart disease of native coronary artery without angina pectoris; I50.9 Heart failure, unspecified; D64.9 Anemia, unspecified; E11.42 Type 2 diabetes mellitus with diabetic polyneuropathy; E11.65 Type 2 diabetes mellitus with hyperglycemia; E78.00 Pure hypercholesterolemia, unspecified; E78.5 Hyperlipidemia, unspecified; F17.210 Nicotine dependence, cigarettes, uncomplicated; G89.29 Other chronic pain; E21.3 Hyperparathyroidism, unspecified; F32.9 Major depressive disorder, single episode, unspecified; K21.9 Gastro-esophageal reflux disease without esophagitis; M19.90 Unspecified osteoarthritis, unspecified site; I25.2 Old myocardial infarction; Z82.49 Family history of ischemic heart disease and other diseases of the circulatory system; Z86.711 Personal history of pulmonary embolism; Z86.73 Personal history of transient ischemic attack (TIA), and cerebral infarction without residual deficits; Z95.1 Presence of aortocoronary bypass graft; Z88.5 Allergy status to narcotic agent; Z87.01 Personal history of pneumonia (recurrent)
CPT/HCPCS: 36415; 70450; 70551; 71045; 80048; 80053; 80069; 82962; 83605; 83735; 84484; 85018; 85025; 93005; 96365; 96375; 96376; 99285; J1644; J1815; J2310; J2405; J7040; J7042; G0378

== ENCOUNTER 2020-11-27 16:17 | Inpatient (IN) | payer MEDICARE, OTHER ==
[~2020-11-27] VITALS: Ht 190.5 cm; Wt 103.6 kg
[~2020-11-27 16:17] MED LIST changes: +FENT1PAT19 TD; +INSU100V35 SQ
[2020-11-27] MEDS ORDERED: DEXTROSE 50% 25 GM / 50ML DISP.SYRIN. IV ONE ×2 (16:30)
[2020-11-27] MEDS ORDERED: NALOXONE 2 MG/2 ML DISP.SYRIN. IV ONE (16:30)
[2020-11-27 16:59] LABS: BASO # 0.1 x10^3/uL (0.0-0.2); BASO % 1 % (0-3); EOS # 0.1 x10^3/uL (0.0-0.7); EOS % 1 % (0-3); HEMATOCRIT 30.7 % (39.0-53.0); HEMOGLOBIN 10.3 g/dL (13.0-17.5); LYMPH # 0.9 x10^3/uL (1.0-4.8); LYMPH % 9 % (24-48); MEAN CORPUSCULAR HEMOGLOBIN 32 pg (25-35); MEAN CORPUSCULAR HGB CONC 33 g/dL (31-37); MEAN CORPUSCULAR VOLUME 96 fL (79-100); MONO # 1.1 x10^3/uL (0.0-1.1); MONO % 11 % (0-9); NEUT % 79 % (31-73); PLATELET COUNT 216 x10^3/uL (140-400); RED CELL DISTRIBUTION WIDTH 13.2 % (11.5-14.5); WHITE BLOOD COUNT 10.2 x10^3/uL (4.0-11.0)
--- NOTE | 2020-11-27 17:03 | RAD ---
Chest AP portable at 1653: Reason for examination: Hypoglycemia. Follow-up lung opacities. Postop changes are seen in the sternum and mediastinum. The heart size continues to be enlarged but u nchanged. Mediastinum is unchanged. Lung hernandez continue to show patchy interstitial and alveolar opa cities which show interval worsening. No pleural effusions are seen. No acute bony abnormalities are seen. IMPRESSION: Stable cardiomegaly. Patchy bilateral interstitial and alveolar opacities with interval worsening. This could reflect pulm onary edema however pneumonia cannot be excluded. Electronically signed by: Ginger Patricia MD (11/27/2020 5:01 PM) STEFANY
[2020-11-27 17:09] LABS: CALCIUM 8.5 mg/dL (8.5-10.1); CREATININE 5.2 mg/dL (0.7-1.3); GFR 11.7; POTASSIUM 3.6 mmol/L (3.5-5.1)
[2020-11-27 17:13] LABS: ACETAMIN < 2 mcg/ml (10-30); SALIC < 2.8 mg/dL (2.8-20.0)
[2020-11-27 17:16] LABS: ALBUMIN 2.6 g/dL (3.4-5.0); ALBUMIN/GLOBULIN RATIO 0.7 (1.0-1.7); MAGNESIUM 2.3 mg/dL (1.8-2.4); TOTAL BILIRUBIN 0.4 mg/dL (0.2-1.0); TOTAL PROTEIN 6.6 g/dL (6.4-8.2)
--- NOTE | 2020-11-27 18:05 | RAD ---
CT head without contrast: Reason for examination: Altered mental status. Axial images were obtained through the brain with no contrast administered. Examination is compromise d by patient motion. Ventricular systems are symmetric and not abnormally dilated. No midline shift is seen. There is no e vidence of intracranial hemorrhage, infarct, mass or edema. There is some mild atrophy. No abnormalit ies of seen at the orbits. A polypoid lesion is again seen in the right maxillary antrum measuring 2. 1 cm in greatest dimension. The remaining paranasal sinuses and mastoid air cells are clear. No acute skull abnormality is seen. IMPRESSION: No acute intracranial abnormality evident. Examination compromised by motion artifact. CT cervical spine without contrast: Helical images were obtained through the cervical spine from skull base through the thoracic apices w ith no contrast administered. Reconstruction was performed in sagittal and coronal planes. The C1 ring is intact. The odontoid process appears to be intact and normally centered between the la teral masses of C1. The cervical vertebral bodies are normally aligned anteriorly and posteriorly. No acute fracture or subluxation is seen. Posterior elements are intact. The intervertebral discs are m aintained. Prevertebral soft tissues are normal. Note is made of some mild hazy opacity at the right lung apex. This may reflect some of the infiltrat es seen on chest x-ray. IMPRESSION: No acute abnormality evident in the cervical spine. Hazy opacity in the right lung apex probably reflecting infiltrates seen on chest x-ray. Exposure: One or more of the following individualized dose reduction techniques were utilized for thi s examination: 1. Automated exposure control 2. Adjustment of the mA and/or kV according to patient size 3. Use of iterative reconstruction technique. Electronically signed by: Ginger Patricia MD (11/27/2020 6:02 PM) STEFANY
--- NOTE | 2020-11-27 18:14 | PHYS DOC ---
Past Medical History Past Medical History: CHF, Diabetes-Type II, High Cholesterol, Hypertension, GA, Renal Disease Additional Past Medical Histor: chronic back pain, DIALYSIS Past Surgical History: Other Additional Past Surgical Histo: HERNIA, peritoneal dialysis cath, 5-WAY CARDIAC BYPASS, FISTULA LAURE Smoking Status: Current Every Day Smoker Alcohol Use: None Drug Use: None General Adult EDM: Chief Complaint: HYPOGLYCEMIA HPI: HPI: 55-year-old male past medical history of ESRD (MWF-last HD yesterday), insulin dependent diabetes with history of narcotic abuse, recently discharged 2 days ago for altered mental status, narcotic overdose and hypoglycemia, presents to the ED brought in by EMS with concern for altered mental status and hypoglycemia. Per EMS glucose was 31. 1mg IM glucagon was given prior to IV access. Peripheral IV was obtained in left upper extremity, distal to patient's dialysis site. 250 cc of D10 was given and glucose increased to 135. Patients' glucose on ed arrival was 170s on ED arrival. Hx/ROS unobtainable due to p atient's mental status. 2 mg of Narcan were given and patient woke up, was shaking and kept complained of being cold. Is alert to name, hospital but not details of current situation Review of Systems: Review of Systems: Review of systems unobtainable Heart Score: Risk Factors: Risk Factors: DM, Current or recent (<one month) smoker, HTN, HLP, family history of CAD, obesity. Risk Scores: Score 0 - 3: 2.5% MACE over next 6 weeks - Discharge Home Score 4 - 6: 20.3% MACE over next 6 weeks - Admit for Clinical Observation Score 7 - 10: 72.7% MACE over next 6 weeks - Early Invasive Strategies Current Medications: Current Medications Medications (Trade) Dose Ordered Sig/Brittani Start Time Stop Time Status Last Admin Dose Admin Dextrose (Dextrose 50%-Water Syringe) 25 gm 1X ONCE 11/27/20 16:30 11/27/20 16:36 DC Naloxone HCl (NARCAN 2mg SYRINGE) 2 mg 1X ONCE 11/27/20 16:30 11/27/20 16:36 DC 11/27/20 16:30 2 MG Allergies: Allergies: Allergies Coded Allergies Type Severity Reaction Last Updated Verified hydromorphone Allergy Severe Anaphylaxis 06/24/20 Yes Physical Exam: PE: Constitutional: In no distress, GCS 10 (E1M5V4) on arrival, GCS 12 (E1M6V5) with narcan, HENT: Normocephalic, atraumatic, Eyes: pupils 2mm bl and reactive bl, EOMI, conjunctiva normal, no discharge. Neck: Normal range of motion, supple, Cardiovascular: S1/2 present, regular rhythm, fentanyl patch over right upper chest wall, Lungs & Thorax: Speaking in full sentences, bilateral equal chest rise, no tachypnea or increased work of breathing Abdomen: soft, no tenderness, Skin: Warm, dry, no erythema, no rash. [] Back: No tenderness, no CVA tenderness. [] Extremities: No tenderness, no cyanosis, Neurologic: normal motor function, normal sensory function, no focal deficits noted. [] Psychologic: Affect normal, no agitation *Mental status continued to wax and wane on arrival-later was not saying his name or responding to sternal rub so Narcan was given Current Patient Data: Labs: Laboratory Tests Test 11/27/20 16:49 White Blood Count 10.2 x10^3/uL (4.0-11.0) Red Blood Count 3.20 x10^6/uL (4.30-5.70) L Hemoglobin 10.3 g/dL (13.0-17.5) L Hematocrit 30.7 % (39.0-53.0) L Mean Corpuscular Volume 96 fL (79-100) Mean Corpuscular Hemoglobin 32 pg (25-35) Mean Corpuscular Hemoglobin Concent 33 g/dL (31-37) Red Cell Distribution Width 13.2 % (11.5-14.5) Platelet Count 216 x10^3/uL (140-400) Neutrophils (%) (Auto) 79 % (31-73) H Lymphocytes (%) (Auto) 9 % (24-48) L Monocytes (%) (Auto) 11 % (0-9) H Eosinophils (%) (Auto) 1 % (0-3) Basophils (%) (Auto) 1 % (0-3) Neutrophils # (Auto) 8.0 x10^3/uL (1.8-7.7) H Lymphocytes # (Auto) 0.9 x10^3/uL (1.0-4.8) L Monocytes # (Auto) 1.1 x10^3/uL (0.0-1.1) Eosinophils # (Auto) 0.1 x10^3/uL (0.0-0.7) Basophils # (Auto) 0.1 x10^3/uL (0.0-0.2) Sodium Level 136 mmol/L (136-145) Potassium Level 3.6 mmol/L (3.5-5.1) Chloride Level 98 mmol/L (98-107) Carbon Dioxide Level 27 mmol/L (21-32) Anion Gap 11 (6-14) Blood Urea Nitrogen 33 mg/dL (8-26) H Creatinine 5.2 mg/dL (0.7-1.3) H Estimated GFR (Cockcroft-Gault) 11.7 BUN/Creatinine Ratio 6 (6-20) Glucose Level 237 mg/dL (70-99) H Lactic Acid Level 2.1 mmol/L (0.4-2.0) H Calcium Level 8.5 mg/dL (8.5-10.1) Magnesium Level 2.3 mg/dL (1.8-2.4) Total Bilirubin 0.4 mg/dL (0.2-1.0) Aspartate Amino Transferase (AST) 21 U/L (15-37) Alanine Aminotransferase (ALT) 24 U/L (16-63) Alkaline Phosphatase 121 U/L (46-116) H Creatine Kinase 83 U/L (39-308) Troponin I Quantitative 0.027 ng/mL (0.000-0.055) Total Protein 6.6 g/dL (6.4-8.2) Albumin 2.6 g/dL (3.4-5.0) L Albumin/Globulin Ratio 0.7 (1.0-1.7) L Salicylates Level < 2.8 mg/dL (2.8-20.0) L Salicylate Last Dose Date Unknown Salicylate Last Dose Time Unknown Acetaminophen Level < 2 mcg/ml (10-30) L Acetaminophen Last Dose Date Unknown Acetaminophen Last Dose Time Unknown Laboratory Tests 11/27/20 16:49 Laboratory Tests 11/27/20 16:49 Vital Signs: Vital Signs Date Time Temp Pulse Resp B/P (MAP) Pulse Ox O2 Delivery O2 Flow Rate FiO2 11/27/20 16:23 95.0 60 16 131/59 (83) 93 Nasal Cannula 2.0 95.0 EKG: EKG: [] Radiology/Procedures: Radiology/Procedures: IMAGING REPORT Signed PATIENT: JULIAN GARCÍA ACCOUNT: [id number] : 1965 LOCATION: ER AGE: 55 SEX: M EXAM STATUS: REG ER ORD. PHYSICIAN: JACKELINE CHAVEZ DO REASON: ams PROCEDURE: CT HEAD AND CERVICAL SPINE WO CT head without contrast: Reason for examination: Altered mental status. Axial images were obtained through the brain with no contrast administered. Examination is compromised by patient motion. Ventricular systems are symmetric and not abnormally dilated. No midline shift is seen. There is no evidence of intracranial hemorrhage, infarct, mass or edema. There is some mild atrophy. No abnormalities of seen at the orbits. A polypoid lesion is again seen in the right maxillary antrum measuring 2.1 cm in greatest dimension. The remaining paranasal sinuses and mastoid air cells are clear. No acute skull abnormality is seen. IMPRESSION: No acute intracranial abnormality evident. Examination compromised by motion artifact. CT cervical spine without contrast: Helical images were obtained through the cervical spine from skull base through the thoracic apices with no contrast administered. Reconstruction was performed in sagittal and coronal planes. The C1 ring is intact. The odontoid process appears to be intact and normally centered between the lateral masses of C1. The cervical vertebral bodies are normally aligned anteriorly and posteriorly. No acute fracture or subluxation is seen. Posterior elements are intact. The intervertebral discs are maintained. Prevertebral soft tissues are normal. Note is made of some mild hazy opacity at the right lung apex. This may reflect some of the infiltrates seen on chest x-ray. IMPRESSION: No acute abnormality evident in the cervical spine. Hazy opacity in the right lung apex probably reflecting infiltrates seen on chest x-ray. Exposure: One or more of the following individualized dose reduction techniques were utilized for this examination: 1. Automated exposure control 2. Adjustment of the mA and/or kV according to patient size 3. Use of iterative reconstruction technique. Electronically signed by: Shahla Little MD (11/27/2020 6:02 PM) [facility] DICTATED and SIGNED BY: SHAHLA LITTLE MD DATE: 11/27/20 [id number] IMAGING REPORT Signed PATIENT: JULIAN GARCÍA ACCOUNT: [id number] : 1965 LOCATION: ER AGE: 55 SEX: M EXAM STATUS: REG ER ORD. PHYSICIAN: JACKELINE CHAVEZ DO REASON: hypoglycemia PROCEDURE: PORTABLE CHEST 1V Chest AP portable at 1653: Reason for examination: Hypoglycemia. Follow-up lung opacities. Postop changes are seen in the sternum and mediastinum. The heart size continues to be enlarged but unchanged. Mediastinum is unchanged. Lung hernandez continue to show patchy interstitial and alveolar opacities which show interval worsening. No pleural effusions are seen. No acute bony abnormalities are seen. IMPRESSION: Stable cardiomegaly. Patchy bilateral interstitial and alveolar opacities with interval worsening. This could reflect pulmonary edema however pneumonia cannot be excluded. Electronically signed by: Shahla Little MD (11/27/2020 5:01 PM) [facility] DICTATED and SIGNED BY: SHAHLA LITTLE MD DATE: 11/27/20 [id number] 0 Course & Med Decision Making: Course & Med Decision Making Pertinent Labs and Imaging studies reviewed. (See chart for details) Concern for AMS, found diaphretic w/emesis on clothing (per at bedside). Suspect opiate abuse ( states she doesn't give him any opiod pills) with hypoglycemia -hypoglycemia improved prior to ED arrival. Responded to Narcan in ED. Chest x-ray could represent atypical infection, aspiration, hcap - covid pending. ABX, bed warmer and narcan drip started. Will admit to ICU as PUI, accepted by Dr. Bobo. Critical Care: Authorized and Performed by: Jackeline Chavez DO Total critical care time: approximately 45 minutes Due to a high probability of clinically significant, life threatening deterioration, the patient required my highest level of preparedness to intervene emergently and I personally spent this critical care time directly and personally managing the patient. This critical care time included obtaining a history; examining the patient; pulse oximetry; ventilator management if necessary; ordering and review of studies; arranging urgent treatment with development of a management plan; evaluation of patient's response to treatment; frequent reassessment; discussion with patient/family; and, discussions with other providers. This critical care time was performed to assess and manage the high probability of imminent, life-threatening deterioration that could result in multi-organ failure. It was exclusive of separately billable procedures and treating other patients and teaching time. Please see MDM section and the rest of the note for further information on patient assessment and treatment. Dragon Disclaimer: Dragon Disclaimer: This electronic medical record was generated, in whole or in part, using a voice recognition dictation system. Departure Departure Impression: Primary Impression: AMS (altered mental status) Additional Impressions: Hypoglycemia HCAP (healthcare-associated pneumonia) History of opioid abuse Disposition: ADMITTED INPT THIS HOSP Admitting Physician: ADAN (Dr. Bobo) Condition: CRITICAL Referrals: TAMI KHAN MD (PCP) JACKELINE CHAVEZ DO Nov 27, 2020 18:14
[2020-11-27] MEDS ORDERED: NALOXONE 2mg SYRINGE 4 MG in IV NORMAL SALINE 250ML 250 ML IV ONE (18:15)
[2020-11-27] MEDS ORDERED: PIPERACILLIN/TAZOBACTAM 4.5 GM in IV NORMAL SALINE 100ML 100 ML IV ONE (18:30)
[2020-11-27] MEDS ORDERED: VANCOMYCIN 2 GM in IV NORMAL SALINE 500ML BAG 500 ML IV ONE (19:00)
[2020-11-27] MEDS ORDERED: PIPERACILLIN/TAZOBACTAM 3.375 GM in IV NORMAL SALINE 50ML 50 ML IV ONE (19:00)
[2020-11-27] MEDS ORDERED: NALOXONE 2mg SYRINGE 4 MG in IV NORMAL SALINE 250ML 250 ML IV PRN (19:15)
[2020-11-27 19:34] LABS: BILIRUBIN,URINE NEGATIVE (NEG); CLARITY,URINE CLEAR; COLOR,URINE YELLOW; NITRITE,URINE NEGATIVE (NEG); PH,URINE 6.5 (<5.0-8.0); PROTEIN,URINE 100 mg/dL (NEG-TRACE); UROBILINOGEN,URINE 0.2 mg/dL (0.2 mg/dL)
[2020-11-27 19:41] LABS: BARBITURATES NEG (NEG); BENZODIAZEPINES NEG (NEG); CANNABINOIDS NEG (NEG); COCAINE NEG (NEG); METHADONE NEG (NEG); OPIATES POS (NEG); PHENCYCLIDINE NEG (NEG)
[2020-11-27 19:42] LABS: AMPHETAMINE/METHAMPHETAMINE NEG (NEG)
[2020-11-27 19:43] LABS: AMORPHOUS SEDIMENT,UR PRESENT /HPF; BACTERIA,URINE FEW /HPF (0-FEW)
[2020-11-27 19:45] LABS: HYALINE CASTS, URINE OCCASIONAL /HPF
[2020-11-27] MEDS ORDERED: SENNOSIDES 8.6 MG TABLET PO PRN (20:45)
[2020-11-27] MEDS ORDERED: DEXTROSE 50% 25 GM / 50ML DISP.SYRIN. IV PRN (20:45)
[2020-11-27] MEDS ORDERED: PIP/TAZO PER PHARMACY MC PRN (20:45)
[2020-11-27] MEDS ORDERED: ACETAMINOPHEN 325 MG TABLET. PO PRN (20:45)
[2020-11-27] MEDS ORDERED: DOCUSATE SODIUM 100 MG CAPSULE. PO PRN (20:45)
--- NOTE | 2020-11-27 20:48 | PDOC1 ---
History and Physical Date of Service: DOS: DATE: 11/27/20 TIME: 20:34 Chief Complaint: Chief Complain: AMS History of Present Illness: HPI: 55-year-old male past medical history of ESRD (MWF-last HD yesterday), dependent diabetes with history of narcotic abuse, recently discharged 2 days ago for altered mental status, narcotic overdose and hypoglycemia, presents to the ED brought in by EMS with concern for altered mental status and hypoglycemia. Per EMS glucose was 31. IM glucagon was given prior to IV access. Peripheral IV was obtained in left upper extremity, distal to patient's dialysis site. 250 cc of D10 was given and glucose increased to 135. Patient was in the 170s on ED arrival. 2 mg of Narcan were given and patient woke up, was shaking and kept complained of being cold. Is alert to name, hospital but not details of current situation Past Medical/Surgical History: PMH/PSH: Past Medical History: CHF, Diabetes-Type II, High Cholesterol, Hypertension, DC, Renal Disease, chronic back pain, DIALYSIS Past Surgical History: HERNIA, peritoneal dialysis cath, 5-WAY CARDIAC BYPASS, FISTULA LAURE Allergies: Allergies: Coded Allergies: hydromorphone (Verified Allergy, Severe, Anaphylaxis, 06/24/20) morphine ok Family History: Family History: Reviewed with no relevant findings Social History: Social History: Smoking Status: Current Every Day Smoker Alcohol Use: None Drug Use: None Current Medications: Current Medications Current Medications Dextrose (Dextrose 50%-Water Syringe) 25 gm 1X ONCE IV Last administered on 11/27/20at 16:25; Start 11/27/20 at 16:30; Stop 11/27/20 at 16:36; Status DC Dextrose (Dextrose 50%-Water Syringe) 25 gm 1X ONCE IV ; Start 11/27/20 at 16:30; Stop 11/27/20 at 16:36; Status DC Naloxone HCl (NARCAN 2mg SYRINGE) 2 mg 1X ONCE IV Last administered on 11/27/20at 16:30; Start 11/27/20 at 16:30; Stop 11/27/20 at 16:36; Status DC Naloxone HCl 4 mg/ Sodium Chloride 254 ml @ 0 mls/hr 1X ONCE IV Last administered on 11/27/20at 18:30; Start 11/27/20 at 18:15; Stop 11/27/20 at 18:16; Status DC Vancomycin HCl (Vanco Per Pharmacy) 1 each PRN DAILY PRN MC SEE COMMENTS; Start 11/27/20 at 18:30; Status UNV Piperacillin Sod/ Tazobactam Sod 4.5 gm/Sodium Chloride 100 ml @ 200 mls/hr 1X ONCE IV ; Start 11/27/20 at 18:30; Stop 11/27/20 at 18:59; Status Cancel Piperacillin Sod/ Tazobactam Sod 3.375 gm/Sodium Chloride 50 ml @ 100 mls/hr 1X ONCE IV Last administered on 11/27/20at 20:15; Start 11/27/20 at 19:00; Stop 11/27/20 at 19:29; Status DC Vancomycin HCl 2 gm/Sodium Chloride 500 ml @ 250 mls/hr 1X ONCE IV ; Start 11/27/20 at 19:00; Stop 11/27/20 at 20:59 Metronidazole 100 ml @ 100 mls/hr 1X ONCE IV ; Start 11/27/20 at 19:00; Stop 11/27/20 at 19:59; Status DC Naloxone HCl 4 mg/ Sodium Chloride 254 ml @ 0 mls/hr CONT PRN PRN IV SEE PROTOCOL; Start 11/27/20 at 19:15 Active Scripts Active Admelog (Insulin Lispro) 100 Unit/1 Ml Vial 0 Units SQ TIDWMEALS 30 Days Gabapentin (Gabapentin) 100 Mg Capsule 100 Mg PO HS 30 Days Gabapentin (Gabapentin) 100 Mg Capsule 200 Mg PO BID92 14 Days Lisinopril 40 Mg Tablet 20 Mg PO BID 30 Days FENTANYL 75mcg/hr (Fentanyl) 1 Each Patch.td72 1 Patch TD Q3DAYS 6 Days Tylenol (Acetaminophen) 325 Mg Tablet 650 Mg PO PRN Q6HRS PRN 14 Days Carvedilol (Carvedilol) 12.5 Mg Tablet 25 Mg PO BIDWMEALS 30 Days Hydralazine Hcl 50 Mg Tablet 50 Mg PO BID 30 Days Atorvastatin Calcium 40 Mg Tablet 40 Mg PO QHS 30 Days Reported Ranexa (Ranolazine) 500 Mg Tab.er.12h 500 Mg PO BID Renal-Irvin Tablet (Folic Acid/Vit Bcomp,C) 0.8 Mg Tablet 0.8 Mg PO DAILY Novolog (Insulin Aspart) 100 Unit/1 Ml Vial 0 SQ PRN TID PRN Zofran (Ondansetron Hcl) 4 Mg Tablet 1 Tab PO PRN Q4HRS PRN NITROGLYCERIN SubLingual (Nitroglycerin) 0.4 Mg Tab.subl 0.4 Mg SL PRN Q5MIN PRN Citalopram Hbr (Citalopram Hydrobromide) 40 Mg Tablet 40 Mg PO HS Protonix (Pantoprazole Sodium) 20 Mg Tablet.dr 40 Mg PO DAILY Docusate Sodium 100 Mg Capsule 1 Cap PO DAILY Divalproex Sodium 500 Mg Tablet.dr 2 Tab PO BID Aspirin 81 Mg Tab.chew 1 Tab PO DAILY Amitiza (Lubiprostone) 24 Mcg Capsule 1 Cap PO DAILY Norvasc (Amlodipine Besylate) 10 Mg Tablet 10 Mg PO DAILY Renvela (Sevelamer Carbonate) 800 Mg Tablet 800 Mg PO TIDWMEALS ROS: Review of Systems Review of System Unable to obtain due to AMS Physical Exam: Vital Signs: Vital Signs Date Time Temp Pulse Resp B/P (MAP) Pulse Ox O2 Delivery O2 Flow Rate FiO2 11/27/20 18:13 64 132/57 (82) 98 Nasal Cannula 2.0 11/27/20 16:23 95.0 16 95.0 Physcial Exam: GEN: No apparent distress. Alert and oriented HEENT: Normal cephalic, atraumatic, external auditory canals are patent EYES: Extraocular muscles are intact, pupil are equally round and reactive to light and accommodation MUSCULOSKELETAL: Well developed , well nourished, good range of motion ENDOCRINE: No thyromegaly was palpated LYMPHATICS: No cervical chain or axillary nodes were noted HEMATOPOIETIC: No bruising NECK: Supple, no JVD, no thyromegaly was noted LUNGS: Clear to auscultation in all lung hernandez without rhonchi or wheezing HEART: RRR, S!, S2 present. Peripheral pulses intact, no obvious murmurs noted ABDOMEN: Soft, nontender. Positive bowel sounds, no organomegaly, normal bowel sounds EXTREMITIES: Without clubbing, cyanosis, or edema. Pedal pulses intact. Negative Homans sign NEUROLOGIC: Normal speech and tone. A&O x 3, moves all extremities, no obvious focal deficits PSYCHIATRIC: Normal affect, normal mood. Stable SKIN: No ulcerations or rashes, good skin turgor, no jaundice VASCULAR: Good capillary refill, neurovascular bundle appears to be intact Labs: Labs: Laboratory Tests Test 11/27/20 16:49 11/27/20 19:22 White Blood Count 10.2 x10^3/uL (4.0-11.0) Red Blood Count 3.20 x10^6/uL (4.30-5.70) Hemoglobin 10.3 g/dL (13.0-17.5) Hematocrit 30.7 % (39.0-53.0) Mean Corpuscular Volume 96 fL (79-100) Mean Corpuscular Hemoglobin 32 pg (25-35) Mean Corpuscular Hemoglobin Concent 33 g/dL (31-37) Red Cell Distribution Width 13.2 % (11.5-14.5) Platelet Count 216 x10^3/uL (140-400) Neutrophils (%) (Auto) 79 % (31-73) Lymphocytes (%) (Auto) 9 % (24-48) Monocytes (%) (Auto) 11 % (0-9) Eosinophils (%) (Auto) 1 % (0-3) Basophils (%) (Auto) 1 % (0-3) Neutrophils # (Auto) 8.0 x10^3/uL (1.8-7.7) Lymphocytes # (Auto) 0.9 x10^3/uL (1.0-4.8) Monocytes # (Auto) 1.1 x10^3/uL (0.0-1.1) Eosinophils # (Auto) 0.1 x10^3/uL (0.0-0.7) Basophils # (Auto) 0.1 x10^3/uL (0.0-0.2) Sodium Level 136 mmol/L (136-145) Potassium Level 3.6 mmol/L (3.5-5.1) Chloride Level 98 mmol/L (98-107) Carbon Dioxide Level 27 mmol/L (21-32) Anion Gap 11 (6-14) Blood Urea Nitrogen 33 mg/dL (8-26) Creatinine 5.2 mg/dL (0.7-1.3) Estimated GFR (Cockcroft-Gault) 11.7 BUN/Creatinine Ratio 6 (6-20) Glucose Level 237 mg/dL (70-99) Lactic Acid Level 2.1 mmol/L (0.4-2.0) Calcium Level 8.5 mg/dL (8.5-10.1) Magnesium Level 2.3 mg/dL (1.8-2.4) Total Bilirubin 0.4 mg/dL (0.2-1.0) Aspartate Amino Transf (AST/SGOT) 21 U/L (15-37) Alanine Aminotransferase (ALT/SGPT) 24 U/L (16-63) Alkaline Phosphatase 121 U/L (46-116) Creatine Kinase 83 U/L (39-308) Troponin I Quantitative 0.027 ng/mL (0.000-0.055) IN-Sno-K-Type Natriuretic Peptide > 07210 pg/mL (0-124) Total Protein 6.6 g/dL (6.4-8.2) Albumin 2.6 g/dL (3.4-5.0) Albumin/Globulin Ratio 0.7 (1.0-1.7) Salicylates Level < 2.8 mg/dL (2.8-20.0) Salicylate Last Dose Date Unknown Salicylate Last Dose Time Unknown Acetaminophen Level < 2 mcg/ml (10-30) Acetaminophen Last Dose Date Unknown Acetaminophen Last Dose Time Unknown Urine Collection Type U cath Urine Color Yellow Urine Clarity Clear Urine pH 6.5 (<5.0-8.0) Urine Specific [place] 1.010 (1.000-1.030) Urine Protein 100 mg/dL (NEG-TRACE) Urine Glucose (UA) 250 mg/dL (NEG) Urine Ketones (Stick) Negative mg/dL (NEG) Urine Blood Negative (NEG) Urine Nitrite Negative (NEG) Urine Bilirubin Negative (NEG) Urine Urobilinogen Dipstick 0.2 mg/dL (0.2 mg/dL) Urine Leukocyte Esterase Negative (NEG) Urine RBC 6-10 /HPF (0-2) Urine WBC 1-4 /HPF (0-4) Urine Squamous Epithelial Cells Few /LPF Urine Amorphous Sediment Present /HPF Urine Bacteria Few /HPF (0-FEW) Urine Hyaline Casts Occasional /HPF Urine Mucus Slight /LPF Urine Opiates Screen Pos (NEG) Urine Methadone Screen Neg (NEG) Urine Barbiturates Neg (NEG) Urine Phencyclidine Screen Neg (NEG) Urine Amphetamine/Methamphetamine Neg (NEG) Urine Benzodiazepines Screen Neg (NEG) Urine Cocaine Screen Neg (NEG) Urine Cannabinoids Screen Neg (NEG) Urine Ethyl Alcohol Neg (NEG) Laboratory Tests Test 11/27/20 16:49 11/27/20 19:22 White Blood Count 10.2 x10^3/uL (4.0-11.0) Red Blood Count 3.20 x10^6/uL (4.30-5.70) Hemoglobin 10.3 g/dL (13.0-17.5) Hematocrit 30.7 % (39.0-53.0) Mean Corpuscular Volume 96 fL (79-100) Mean Corpuscular Hemoglobin 32 pg (25-35) Mean Corpuscular Hemoglobin Concent 33 g/dL (31-37) Red Cell Distribution Width 13.2 % (11.5-14.5) Platelet Count 216 x10^3/uL (140-400) Neutrophils (%) (Auto) 79 % (31-73) Lymphocytes (%) (Auto) 9 % (24-48) Monocytes (%) (Auto) 11 % (0-9) Eosinophils (%) (Auto) 1 % (0-3) Basophils (%) (Auto) 1 % (0-3) Neutrophils # (Auto) 8.0 x10^3/uL (1.8-7.7) Lymphocytes # (Auto) 0.9 x10^3/uL (1.0-4.8) Monocytes # (Auto) 1.1 x10^3/uL (0.0-1.1) Eosinophils # (Auto) 0.1 x10^3/uL (0.0-0.7) Basophils # (Auto) 0.1 x10^3/uL (0.0-0.2) Sodium Level 136 mmol/L (136-145) Potassium Level 3.6 mmol/L (3.5-5.1) Chloride Level 98 mmol/L (98-107) Carbon Dioxide Level 27 mmol/L (21-32) Anion Gap 11 (6-14) Blood Urea Nitrogen 33 mg/dL (8-26) Creatinine 5.2 mg/dL (0.7-1.3) Estimated GFR (Cockcroft-Gault) 11.7 BUN/Creatinine Ratio 6 (6-20) Glucose Level 237 mg/dL (70-99) Lactic Acid Level 2.1 mmol/L (0.4-2.0) Calcium Level 8.5 mg/dL (8.5-10.1) Magnesium Level 2.3 mg/dL (1.8-2.4) Total Bilirubin 0.4 mg/dL (0.2-1.0) Aspartate Amino Transf (AST/SGOT) 21 U/L (15-37) Alanine Aminotransferase (ALT/SGPT) 24 U/L (16-63) Alkaline Phosphatase 121 U/L (46-116) Creatine Kinase 83 U/L (39-308) Troponin I Quantitative 0.027 ng/mL (0.000-0.055) DH-Oop-M-Type Natriuretic Peptide > 47567 pg/mL (0-124) Total Protein 6.6 g/dL (6.4-8.2) Albumin 2.6 g/dL (3.4-5.0) Albumin/Globulin Ratio 0.7 (1.0-1.7) Salicylates Level < 2.8 mg/dL (2.8-20.0) Salicylate Last Dose Date Unknown Salicylate Last Dose Time Unknown Acetaminophen Level < 2 mcg/ml (10-30) Acetaminophen Last Dose Date Unknown Acetaminophen Last Dose Time Unknown Urine Collection Type U cath Urine Color Yellow Urine Clarity Clear Urine pH 6.5 (<5.0-8.0) Urine Specific [place] 1.010 (1.000-1.030) Urine Protein 100 mg/dL (NEG-TRACE) Urine Glucose (UA) 250 mg/dL (NEG) Urine Ketones (Stick) Negative mg/dL (NEG) Urine Blood Negative (NEG) Urine Nitrite Negative (NEG) Urine Bilirubin Negative (NEG) Urine Urobilinogen Dipstick 0.2 mg/dL (0.2 mg/dL) Urine Leukocyte Esterase Negative (NEG) Urine RBC 6-10 /HPF (0-2) Urine WBC 1-4 /HPF (0-4) Urine Squamous Epithelial Cells Few /LPF Urine Amorphous Sediment Present /HPF Urine Bacteria Few /HPF (0-FEW) Urine Hyaline Casts Occasional /HPF Urine Mucus Slight /LPF Urine Opiates Screen Pos (NEG) Urine Methadone Screen Neg (NEG) Urine Barbiturates Neg (NEG) Urine Phencyclidine Screen Neg (NEG) Urine Amphetamine/Methamphetamine Neg (NEG) Urine Benzodiazepines Screen Neg (NEG) Urine Cocaine Screen Neg (NEG) Urine Cannabinoids Screen Neg (NEG) Urine Ethyl Alcohol Neg (NEG) Images: Images HEAD CT IMPRESSION: No acute abnormality evident in the cervical spine. Hazy opacity in the right lung apex probably reflecting infiltrates seen on chest x-ray. CXR IMPRESSION: Stable cardiomegaly. Patchy bilateral interstitial and alveolar opacities with interval worsening. This could reflect pulmonary edema however pneumonia cannot be excluded. Assessment/Plan Assessment/Plan Acute toxic and metabolic encephalopathy Hypoglycemia concern for Opiod overdose Concern for aspiration PNA Acute volume overload Investigation for COVID infection Bilateral interstitial infiltrates ESRD on HD Severe protein malnutrition Admit to ICU for further management Contiue Narcan gtt Hypoglycemia protocol Nephro consult for HD PAT consult Pending covid test continue IV empiric Abx Heparin for DVT prophylaxis DPOA: FULL CODE Justifications for Admission Other Justification AMS, necrotic ureters, hypoglycemia DILSHAD PALMA MD Nov 27, 2020 20:48
[2020-11-27 21:00] VITALS: BP 176/78
--- NOTE | 2020-11-27 21:00 | NUR ---
Pt admitted to room 104 from ED. Pt agitated, yelling at staff, able to follow commands when choosing to, continuously removed NC and mitts applied. called, updated, and give patient pass code. Only pt belonging noted is gym shorts that he was wearing.
[2020-11-27 21:15] VITALS: BP 183/88
[2020-11-27 21:30] VITALS: BP 176/76
[2020-11-27 21:45] VITALS: BP 186/77
[2020-11-27 22:00] VITALS: BP 168/78
[2020-11-27 23:00] VITALS: BP 178/80
[2020-11-27] MEDS ORDERED: INSU100V37 SQ (23:33)
[2020-11-28] VITALS (11 sets, daily range): BP systolic 150–181; BP diastolic 65–82
[2020-11-28] MEDS: HEPARIN for SUB-Q USE 5,000 UNIT/ML VIAL. SQ SCH ×3 (01:17→22:05)
[2020-11-28] MEDS ORDERED: INFLUENZA VAX SCREEN BY RX. MC PRN (03:00)
[2020-11-28 04:22] LABS: BASO # 0.1 x10^3/uL (0.0-0.2); BASO % 1 % (0-3); EOS % 0 % (0-3); HEMATOCRIT 28.8 % (39.0-53.0); HEMOGLOBIN 9.7 g/dL (13.0-17.5); LYMPH # 1.4 x10^3/uL (1.0-4.8); LYMPH % 15 % (24-48); MEAN CORPUSCULAR HEMOGLOBIN 32 pg (25-35); MEAN CORPUSCULAR HGB CONC 34 g/dL (31-37); MEAN CORPUSCULAR VOLUME 96 fL (79-100); MONO # 0.8 x10^3/uL (0.0-1.1); MONO % 9 % (0-9); NEUT % 75 % (31-73); PLATELET COUNT 234 x10^3/uL (140-400); RED BLOOD COUNT 3.02 x10^6/uL (4.30-5.70); RED CELL DISTRIBUTION WIDTH 13.4 % (11.5-14.5); WHITE BLOOD COUNT 9.3 x10^3/uL (4.0-11.0)
[2020-11-28 04:45] LABS: CALCIUM 8.7 mg/dL (8.5-10.1); CREATININE 5.7 mg/dL (0.7-1.3); GFR 10.5; MAGNESIUM 2.4 mg/dL (1.8-2.4); POTASSIUM 3.8 mmol/L (3.5-5.1)
[2020-11-28] MEDS: VANCOMYCIN PER PHARMACY MC PRN ×3 (05:16→15:19)
[2020-11-28] MEDS: PIPERACILLIN/TAZOBACTAM 2.25 GM in IV NORMAL SALINE 50ML 50 ML IV SCH ×3 (05:50→22:03)
--- NOTE | 2020-11-28 06:50 | NUR ---
Pt transferred to room 262. Report given to Sonya. Pt incontinent of urine and requested gym shorts to be thrown away.
[2020-11-28] MEDS: INSULIN LISPRO 300 UNITS/3 ML VIAL. SQ SCH ×3 (08:00→17:00)
--- NOTE | 2020-11-28 08:19 | EKG ---
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
[2020-11-28] MEDS: PANTOPRAZOLE IV PUSH 40 MG VIAL. IVP SCH (09:20)
--- NOTE | 2020-11-28 11:38 | PDOC ---
[employer] PROGRESS NOTE Date of Service DOS: DATE: 11/28/20 TIME: 11:34 Chief Complaint Chief Complaint hypoglycemia, AMS, opioid toxicity History of Present Illness History of Present Illness 11/28/2020 - pt seen and assessed at bedside - ana case manageer - ana RN - pt currently on cardiac monitoring - narcotics are being held - pt is slightly more alert than when entered ED last night. Vitals/I&O Vitals/I&O: Vital Signs Date Time Temp Pulse Resp B/P (MAP) Pulse Ox O2 Delivery O2 Flow Rate FiO2 11/28/20 07:03 99.5 72 18 181/82 (115) 100 Room Air 99.5 11/27/20 21:00 2.0 I & O 11/27/20 11/27/20 11/28/20 15:00 23:00 07:00 Intake Total 50 ml 854 ml Balance 50 ml 854 ml Physical Exam General: Alert, Oriented X3, Cooperative Heart: Regular rate, No murmurs Lungs: Clear Abdomen: Normal bowel sounds Extremities: No clubbing, No cyanosis Skin: No breakdown Labs Labs: Laboratory Tests Test 11/27/20 16:49 11/27/20 19:22 11/27/20 20:40 11/27/20 20:45 White Blood Count 10.2 x10^3/uL (4.0-11.0) Red Blood Count 3.20 x10^6/uL (4.30-5.70) Hemoglobin 10.3 g/dL (13.0-17.5) Hematocrit 30.7 % (39.0-53.0) Mean Corpuscular Volume 96 fL (79-100) Mean Corpuscular Hemoglobin 32 pg (25-35) Mean Corpuscular Hemoglobin Concent 33 g/dL (31-37) Red Cell Distribution Width 13.2 % (11.5-14.5) Platelet Count 216 x10^3/uL (140-400) Neutrophils (%) (Auto) 79 % (31-73) Lymphocytes (%) (Auto) 9 % (24-48) Monocytes (%) (Auto) 11 % (0-9) Eosinophils (%) (Auto) 1 % (0-3) Basophils (%) (Auto) 1 % (0-3) Neutrophils # (Auto) 8.0 x10^3/uL (1.8-7.7) Lymphocytes # (Auto) 0.9 x10^3/uL (1.0-4.8) Monocytes # (Auto) 1.1 x10^3/uL (0.0-1.1) Eosinophils # (Auto) 0.1 x10^3/uL (0.0-0.7) Basophils # (Auto) 0.1 x10^3/uL (0.0-0.2) Sodium Level 136 mmol/L (136-145) Potassium Level 3.6 mmol/L (3.5-5.1) Chloride Level 98 mmol/L (98-107) Carbon Dioxide Level 27 mmol/L (21-32) Anion Gap 11 (6-14) Blood Urea Nitrogen 33 mg/dL (8-26) Creatinine 5.2 mg/dL (0.7-1.3) Estimated GFR (Cockcroft-Gault) 11.7 BUN/Creatinine Ratio 6 (6-20) Glucose Level 237 mg/dL (70-99) Lactic Acid Level 2.1 mmol/L (0.4-2.0) 1.0 mmol/L (0.4-2.0) Calcium Level 8.5 mg/dL (8.5-10.1) Magnesium Level 2.3 mg/dL (1.8-2.4) Total Bilirubin 0.4 mg/dL (0.2-1.0) Aspartate Amino Transf (AST/SGOT) 21 U/L (15-37) Alanine Aminotransferase (ALT/SGPT) 24 U/L (16-63) Alkaline Phosphatase 121 U/L (46-116) Creatine Kinase 83 U/L (39-308) Troponin I Quantitative 0.027 ng/mL (0.000-0.055) VR-Cjy-A-Type Natriuretic Peptide > 17360 pg/mL (0-124) Total Protein 6.6 g/dL (6.4-8.2) Albumin 2.6 g/dL (3.4-5.0) Albumin/Globulin Ratio 0.7 (1.0-1.7) Salicylates Level < 2.8 mg/dL (2.8-20.0) Salicylate Last Dose Date Unknown Salicylate Last Dose Time Unknown Acetaminophen Level < 2 mcg/ml (10-30) Acetaminophen Last Dose Date Unknown Acetaminophen Last Dose Time Unknown Urine Collection Type U cath Urine Color Yellow Urine Clarity Clear Urine pH 6.5 (<5.0-8.0) Urine Specific [place] 1.010 (1.000-1.030) Urine Protein 100 mg/dL (NEG-TRACE) Urine Glucose (UA) 250 mg/dL (NEG) Urine Ketones (Stick) Negative mg/dL (NEG) Urine Blood Negative (NEG) Urine Nitrite Negative (NEG) Urine Bilirubin Negative (NEG) Urine Urobilinogen Dipstick 0.2 mg/dL (0.2 mg/dL) Urine Leukocyte Esterase Negative (NEG) Urine RBC 6-10 /HPF (0-2) Urine WBC 1-4 /HPF (0-4) Urine Squamous Epithelial Cells Few /LPF Urine Amorphous Sediment Present /HPF Urine Bacteria Few /HPF (0-FEW) Urine Hyaline Casts Occasional /HPF Urine Mucus Slight /LPF Urine Opiates Screen Pos (NEG) Urine Methadone Screen Neg (NEG) Urine Barbiturates Neg (NEG) Urine Phencyclidine Screen Neg (NEG) Urine Amphetamine/Methamphetamine Neg (NEG) Urine Benzodiazepines Screen Neg (NEG) Urine Cocaine Screen Neg (NEG) Urine Cannabinoids Screen Neg (NEG) Urine Ethyl Alcohol Neg (NEG) Glucose (Fingerstick) 152 mg/dL (70-99) Test 11/27/20 21:15 11/28/20 04:00 11/28/20 07:34 Glucose (Fingerstick) 131 mg/dL (70-99) 110 mg/dL (70-99) White Blood Count 9.3 x10^3/uL (4.0-11.0) Red Blood Count 3.02 x10^6/uL (4.30-5.70) Hemoglobin 9.7 g/dL (13.0-17.5) Hematocrit 28.8 % (39.0-53.0) Mean Corpuscular Volume 96 fL (79-100) Mean Corpuscular Hemoglobin 32 pg (25-35) Mean Corpuscular Hemoglobin Concent 34 g/dL (31-37) Red Cell Distribution Width 13.4 % (11.5-14.5) Platelet Count 234 x10^3/uL (140-400) Neutrophils (%) (Auto) 75 % (31-73) Lymphocytes (%) (Auto) 15 % (24-48) Monocytes (%) (Auto) 9 % (0-9) Eosinophils (%) (Auto) 0 % (0-3) Basophils (%) (Auto) 1 % (0-3) Neutrophils # (Auto) 7.0 x10^3/uL (1.8-7.7) Lymphocytes # (Auto) 1.4 x10^3/uL (1.0-4.8) Monocytes # (Auto) 0.8 x10^3/uL (0.0-1.1) Eosinophils # (Auto) 0.0 x10^3/uL (0.0-0.7) Basophils # (Auto) 0.1 x10^3/uL (0.0-0.2) Sodium Level 137 mmol/L (136-145) Potassium Level 3.8 mmol/L (3.5-5.1) Chloride Level 101 mmol/L (98-107) Carbon Dioxide Level 25 mmol/L (21-32) Anion Gap 11 (6-14) Blood Urea Nitrogen 39 mg/dL (8-26) Creatinine 5.7 mg/dL (0.7-1.3) Estimated GFR (Cockcroft-Gault) 10.5 Glucose Level 121 mg/dL (70-99) Calcium Level 8.7 mg/dL (8.5-10.1) Phosphorus Level 3.0 mg/dL (2.6-4.7) Magnesium Level 2.4 mg/dL (1.8-2.4) Review of Systems Review of Systems: pt denies abdominal pain pt denies weakness or lethargy Assessment and Plan Assessmemt and Plan Problems Medical Problems: (1) HCAP (healthcare-associated pneumonia) Status: Acute (2) History of opioid abuse Status: Acute (3) Hypoglycemia Status: Acute Assessment - hypoglycemia - AMS - opioid abuse/toxicity Plan - hold narcotics - continue cardiac monitoring - appreciate input from subspecialists - trend labs prn - discuss potential PAT team consult with shelter case manager Comment Review of Relevant I have reviewed the following items nelda (where applicable) has been applied. Medications: Current Medications Medications (Trade) Dose Ordered Sig/Brittani Route PRN Reason Start Time Stop Time Status Last Admin Dose Admin Dextrose (Dextrose 50%-Water Syringe) 25 gm 1X ONCE IV 11/27/20 16:30 11/27/20 16:36 DC 11/27/20 16:25 Naloxone HCl (NARCAN 2mg SYRINGE) 2 mg 1X ONCE IV 11/27/20 16:30 11/27/20 16:36 DC 11/27/20 16:30 Naloxone HCl 4 mg/ Sodium Chloride 254 ml @ 0 mls/hr 1X ONCE IV 11/27/20 18:15 11/27/20 18:16 DC 11/27/20 18:30 Vancomycin HCl (Vanco Per Pharmacy) 1 each PRN DAILY PRN MC SEE COMMENTS 11/27/20 18:30 11/28/20 05:16 Piperacillin Sod/ Tazobactam Sod 3.375 gm/Sodium Chloride 50 ml @ 100 mls/hr 1X ONCE IV 11/27/20 19:00 11/27/20 19:29 DC 11/27/20 20:15 Vancomycin HCl 2 gm/Sodium Chloride 500 ml @ 250 mls/hr 1X ONCE IV 11/27/20 19:00 11/27/20 20:59 DC 11/27/20 21:05 Metronidazole 100 ml @ 100 mls/hr 1X ONCE IV 11/27/20 19:00 11/27/20 19:59 DC 11/28/20 01:14 Naloxone HCl 4 mg/ Sodium Chloride 254 ml @ 0 mls/hr CONT PRN PRN IV SEE PROTOCOL 11/27/20 19:15 11/27/20 20:39 Heparin Sodium (Porcine) (Heparin Sodium) 5,000 unit Q12HR SQ 11/27/20 21:00 11/28/20 09:25 Pantoprazole Sodium (PROTONIX VIAL for IV PUSH) 40 mg DAILYAC IVP 11/28/20 07:30 11/28/20 09:20 Piperacillin Sod/ Tazobactam Sod 2.25 gm/Sodium Chloride 50 ml @ 100 mls/hr Q8HRS IV 11/28/20 06:00 11/28/20 05:50 Justifications for Admission Other Justification AMS, necrotic ureters, hypoglycemia CASTLE,NIAL K III DO Nov 28, 2020 11:38
--- NOTE | 2020-11-28 12:04 | PDOC ---
Renal-Progress Notes Subjective Notes Notes CONFUSED History of Present Illness Hx of present illness NO NEW CHANGES Vitals Vitals Vital Signs Date Time Temp Pulse Resp B/P (MAP) Pulse Ox O2 Delivery O2 Flow Rate FiO2 11/28/20 07:03 99.5 72 18 181/82 (115) 100 Room Air 99.5 11/27/20 21:00 2.0 Weight Weight [ ] I.O. Intake and Output Intake and Output 11/28/20 07:00 Intake Total 904 ml Balance 904 ml Intake Oral 0 ml IV Total 904 ml # Voids 1 Labs Labs Laboratory Tests Test 11/27/20 16:49 11/27/20 19:22 11/27/20 20:40 11/27/20 20:45 White Blood Count 10.2 x10^3/uL (4.0-11.0) Red Blood Count 3.20 x10^6/uL (4.30-5.70) Hemoglobin 10.3 g/dL (13.0-17.5) Hematocrit 30.7 % (39.0-53.0) Mean Corpuscular Volume 96 fL (79-100) Mean Corpuscular Hemoglobin 32 pg (25-35) Mean Corpuscular Hemoglobin Concent 33 g/dL (31-37) Red Cell Distribution Width 13.2 % (11.5-14.5) Platelet Count 216 x10^3/uL (140-400) Neutrophils (%) (Auto) 79 % (31-73) Lymphocytes (%) (Auto) 9 % (24-48) Monocytes (%) (Auto) 11 % (0-9) Eosinophils (%) (Auto) 1 % (0-3) Basophils (%) (Auto) 1 % (0-3) Neutrophils # (Auto) 8.0 x10^3/uL (1.8-7.7) Lymphocytes # (Auto) 0.9 x10^3/uL (1.0-4.8) Monocytes # (Auto) 1.1 x10^3/uL (0.0-1.1) Eosinophils # (Auto) 0.1 x10^3/uL (0.0-0.7) Basophils # (Auto) 0.1 x10^3/uL (0.0-0.2) Sodium Level 136 mmol/L (136-145) Potassium Level 3.6 mmol/L (3.5-5.1) Chloride Level 98 mmol/L (98-107) Carbon Dioxide Level 27 mmol/L (21-32) Anion Gap 11 (6-14) Blood Urea Nitrogen 33 mg/dL (8-26) Creatinine 5.2 mg/dL (0.7-1.3) Estimated GFR (Cockcroft-Gault) 11.7 BUN/Creatinine Ratio 6 (6-20) Glucose Level 237 mg/dL (70-99) Lactic Acid Level 2.1 mmol/L (0.4-2.0) 1.0 mmol/L (0.4-2.0) Calcium Level 8.5 mg/dL (8.5-10.1) Magnesium Level 2.3 mg/dL (1.8-2.4) Total Bilirubin 0.4 mg/dL (0.2-1.0) Aspartate Amino Transf (AST/SGOT) 21 U/L (15-37) Alanine Aminotransferase (ALT/SGPT) 24 U/L (16-63) Alkaline Phosphatase 121 U/L (46-116) Creatine Kinase 83 U/L (39-308) Troponin I Quantitative 0.027 ng/mL (0.000-0.055) GA-Rdv-T-Type Natriuretic Peptide > 23927 pg/mL (0-124) Total Protein 6.6 g/dL (6.4-8.2) Albumin 2.6 g/dL (3.4-5.0) Albumin/Globulin Ratio 0.7 (1.0-1.7) Salicylates Level < 2.8 mg/dL (2.8-20.0) Salicylate Last Dose Date Unknown Salicylate Last Dose Time Unknown Acetaminophen Level < 2 mcg/ml (10-30) Acetaminophen Last Dose Date Unknown Acetaminophen Last Dose Time Unknown Urine Collection Type U cath Urine Color Yellow Urine Clarity Clear Urine pH 6.5 (<5.0-8.0) Urine Specific [place] 1.010 (1.000-1.030) Urine Protein 100 mg/dL (NEG-TRACE) Urine Glucose (UA) 250 mg/dL (NEG) Urine Ketones (Stick) Negative mg/dL (NEG) Urine Blood Negative (NEG) Urine Nitrite Negative (NEG) Urine Bilirubin Negative (NEG) Urine Urobilinogen Dipstick 0.2 mg/dL (0.2 mg/dL) Urine Leukocyte Esterase Negative (NEG) Urine RBC 6-10 /HPF (0-2) Urine WBC 1-4 /HPF (0-4) Urine Squamous Epithelial Cells Few /LPF Urine Amorphous Sediment Present /HPF Urine Bacteria Few /HPF (0-FEW) Urine Hyaline Casts Occasional /HPF Urine Mucus Slight /LPF Urine Opiates Screen Pos (NEG) Urine Methadone Screen Neg (NEG) Urine Barbiturates Neg (NEG) Urine Phencyclidine Screen Neg (NEG) Urine Amphetamine/Methamphetamine Neg (NEG) Urine Benzodiazepines Screen Neg (NEG) Urine Cocaine Screen Neg (NEG) Urine Cannabinoids Screen Neg (NEG) Urine Ethyl Alcohol Neg (NEG) Glucose (Fingerstick) 152 mg/dL (70-99) Test 11/27/20 21:15 11/28/20 04:00 11/28/20 07:34 Glucose (Fingerstick) 131 mg/dL (70-99) 110 mg/dL (70-99) White Blood Count 9.3 x10^3/uL (4.0-11.0) Red Blood Count 3.02 x10^6/uL (4.30-5.70) Hemoglobin 9.7 g/dL (13.0-17.5) Hematocrit 28.8 % (39.0-53.0) Mean Corpuscular Volume 96 fL (79-100) Mean Corpuscular Hemoglobin 32 pg (25-35) Mean Corpuscular Hemoglobin Concent 34 g/dL (31-37) Red Cell Distribution Width 13.4 % (11.5-14.5) Platelet Count 234 x10^3/uL (140-400) Neutrophils (%) (Auto) 75 % (31-73) Lymphocytes (%) (Auto) 15 % (24-48) Monocytes (%) (Auto) 9 % (0-9) Eosinophils (%) (Auto) 0 % (0-3) Basophils (%) (Auto) 1 % (0-3) Neutrophils # (Auto) 7.0 x10^3/uL (1.8-7.7) Lymphocytes # (Auto) 1.4 x10^3/uL (1.0-4.8) Monocytes # (Auto) 0.8 x10^3/uL (0.0-1.1) Eosinophils # (Auto) 0.0 x10^3/uL (0.0-0.7) Basophils # (Auto) 0.1 x10^3/uL (0.0-0.2) Sodium Level 137 mmol/L (136-145) Potassium Level 3.8 mmol/L (3.5-5.1) Chloride Level 101 mmol/L (98-107) Carbon Dioxide Level 25 mmol/L (21-32) Anion Gap 11 (6-14) Blood Urea Nitrogen 39 mg/dL (8-26) Creatinine 5.7 mg/dL (0.7-1.3) Estimated GFR (Cockcroft-Gault) 10.5 Glucose Level 121 mg/dL (70-99) Calcium Level 8.7 mg/dL (8.5-10.1) Phosphorus Level 3.0 mg/dL (2.6-4.7) Magnesium Level 2.4 mg/dL (1.8-2.4) Review of Systems Constitutional: yes: other (CONFUSED) Physical Exam General Appearance: no apparent distress Skin: warm Respiratory: bilateral CTA Heart: S1S2 Abdomen: soft, bowel sounds present Genitourinary: bladder flat Extremities: pulses present Neurology: alert Assessment Assessment IMP HYPOGLYCEMIA DM II HTN ANEMIA ENCEPHALOPATHY ESRD PULM INFILTRATES PLAN HD TODAY UF TO TW CHLOE NEEDED PUI FOR COVID 19 BO DOHERTY MD Nov 28, 2020 12:04
--- NOTE | 2020-11-28 12:21 | NUR ---
SS following for discharge planning. SS reviewed pt chart and discussed with pt RN. Pt is from home with spouse and is currently on room air. COVID19 test pending. Pt on IV Zosyn. Per RN, pt had positive blood culture. Pt recently discharged from [facility] and was accepted on services with [facility], ; fax [phone]. SS will continue to follow for discharge planning.
[2020-11-28] MEDS ORDERED: DIALYSIS PATIENT. MC PRN ×2 (12:30)
[2020-11-28] MEDS ORDERED: IV NORMAL SALINE 1000ML BAG 1,000 ML IV PRN ×2 (12:30)
--- NOTE | 2020-11-28 15:21 | NUR ---
Pharmacy Vancomycin Dosing Note S:Consulted to monitor and dose vancomycin started 11/27/20. O:JULIAN GARÍCA is a 55 year old M with HCAP . Height: 6 feet, 3 inches Weight: 102.8 kg [place] Body Weight: 84.50 Adjusted Body Weight: 91.82 Dosing Weight: Actual Other Antibiotics: ZOSYN 2.25 GM Q8H LABS: Last BUN: 39 Last Creatinine: 5.7 Creatinine Clearance: HD MWF mL/min Last WBC: 9.3 Last Procalcitonin: Tmax (past 24 hours): 99.5 Microbiology: 11/28 GPC 11/01 BOTTLES BLOOD I/O: 904/300 Drug Levels: Last Random level: 28 on 11/28/20 at 0400 Last dose given 11/27/20 at 2105 Vancomycin Dosing: Loading Dose: 2000 mg x1 Dosing Weight: Actual Target Trough: 15-20 A: Based on: HD STATUS, PRE-HD LEVEL, URINE OUTPUT, P: 1. INITIATE Vancomycin 500 mg IV QMWF AFTER HD 2. Follow up RANDOM level NEEDED. 3. Pharmacy will continue to monitor, follow and adjust therapy as needed. MAGGY GARRIDO [facility], 11/28/20 [id number]
[2020-11-28] MEDS ORDERED: DARBEPOETIN ALFA 60 MCG/0.3 ML DISP.SYRIN. SQ SCH (21:00)
[2020-11-28] MEDS ORDERED: MORPHINE ER 15 MG TABLET.ER PO ONE (22:00)
[2020-11-28] MEDS: LACTOBACILLUS RHAMNOSUS GG 1 CAPSULE. PO SCH (22:03)
[2020-11-29 02:50] VITALS: BP 183/99
[2020-11-29] MEDS: PIPERACILLIN/TAZOBACTAM 2.25 GM in IV NORMAL SALINE 50ML 50 ML IV SCH ×3 (05:25→19:31)
[2020-11-29] MEDS ORDERED: VANCOMYCIN 1 GM in IV NORMAL SALINE 250ML 250 ML IV SCH (08:00)
[2020-11-29] MEDS: VANCOMYCIN PER PHARMACY MC PRN (08:50)
[2020-11-29] MEDS: HEPARIN for SUB-Q USE 5,000 UNIT/ML VIAL. SQ SCH ×2 (08:55→19:30)
[2020-11-29] MEDS: INSULIN LISPRO 300 UNITS/3 ML VIAL. SQ SCH ×3 (08:56→18:37)
[2020-11-29] MEDS: LACTOBACILLUS RHAMNOSUS GG 1 CAPSULE. PO SCH ×2 (08:58→19:32)
[2020-11-29] MEDS: PANTOPRAZOLE IV PUSH 40 MG VIAL. IVP SCH (08:59)
[2020-11-29] MEDS ORDERED: MORPHINE ER 15 MG TABLET.ER PO SCH (09:00)
[2020-11-29] MEDS: MORPHINE ER 15 MG TABLET.ER PO SCH ×2 (09:44→19:31)
[2020-11-29 11:33] VITALS: BP 207/83
--- NOTE | 2020-11-29 11:46 | PDOC ---
[employer] PROGRESS NOTE Date of Service DOS: DATE: 11/29/20 TIME: 11:42 Chief Complaint Chief Complaint hypoglycemia, AMS, opioid toxicity History of Present Illness History of Present Illness 11/28/2020 - pt seen and assessed at bedside - ana case manageer - ana RN - pt currently on cardiac monitoring - narcotics are being held - pt is slightly more alert than when entered ED last night. 11/29/2020 -Patient seen and examined at bedside -Ana RN -Patient blood cultures positive for gram positive cocci (Staph Epidermidis) -Pt is ESRD on HD -Covid negative -Chart reviewed Vitals/I&O Vitals/I&O: Vital Signs Date Time Temp Pulse Resp B/P (MAP) Pulse Ox O2 Delivery O2 Flow Rate FiO2 11/29/20 09:44 16 97 Room Air 11/29/20 08:59 2.0 11/29/20 02:50 99.0 89 183/99 (127) 99.0 I & O 11/28/20 11/28/20 11/29/20 15:00 23:00 07:00 Intake Total 320 ml 0 ml 300 ml Output Total 300 ml Balance 20 ml 0 ml 300 ml Physical Exam General: Alert, Oriented X3, Cooperative Heart: Regular rate, No murmurs Lungs: Clear Abdomen: Normal bowel sounds Extremities: No clubbing, No cyanosis Skin: No breakdown Labs Labs: Laboratory Tests Test 11/28/20 11:52 11/28/20 16:49 11/28/20 21:31 11/28/20 22:04 Glucose (Fingerstick) 145 mg/dL (70-99) 262 mg/dL (70-99) 197 mg/dL (70-99) 249 mg/dL (70-99) Test 11/29/20 08:32 Glucose (Fingerstick) 183 mg/dL (70-99) Review of Systems Review of Systems: Denies CP. Denies NVD. Assessment and Plan Assessmemt and Plan Problems Medical Problems: (1) HCAP (healthcare-associated pneumonia) Status: Acute (2) History of opioid abuse Status: Acute (3) Hypoglycemia Status: Acute 11/29/2020 hypoglycemia, AMS, opioid toxicity Plan 1 Started IV Vancomycin 2 Started Rocephin 3 Cardiac monitoring 4 Appreciate subspecialist input 5 Full code 6 Home meds 7 Hold narcotics Comment Review of Relevant I have reviewed the following items nelda (where applicable) has been applied. Medications: Current Medications Medications (Trade) Dose Ordered Sig/Brittani Route PRN Reason Start Time Stop Time Status Last Admin Dose Admin Darbepoetin Hayden (ARANESP for DIALYSIS PTS) 60 mcg WEEKLYHS SQ 11/28/20 21:00 11/28/20 22:07 Lactobacillus Rhamnosus (Culturelle) 1 cap BID PO 11/28/20 21:00 11/29/20 08:58 Morphine Sulfate (Ms Contin) 15 mg TID PO 11/29/20 09:00 11/29/20 09:15 DC 11/29/20 08:59 Morphine Sulfate (Ms Contin) 15 mg 1X ONCE PO 11/28/20 22:00 11/28/20 22:01 DC 11/28/20 22:03 Morphine Sulfate (Ms Contin) 15 mg BID PO 11/29/20 09:15 11/29/20 09:44 Justifications for Admission Other Justification AMS, necrotic ureters, hypoglycemia CASTMAREN,NIAL K III DO Nov 29, 2020 11:46
[2020-11-29] MEDS ORDERED: cefTRIAXone IV Push 1 GM VIAL. IVP SCH (12:00)
[2020-11-29] MEDS: ONDANSETRON PF 4 MG/2 ML VIAL. IVP PRN ×2 (13:16→19:31)
[2020-11-29 14:42] VITALS: BP 160/76
--- NOTE | 2020-11-29 15:42 | PDOC ---
Renal-Progress Notes Subjective Notes Notes NONE History of Present Illness Hx of present illness STABLE Vitals Vitals Vital Signs Date Time Temp Pulse Resp B/P (MAP) Pulse Ox O2 Delivery O2 Flow Rate FiO2 11/29/20 14:42 99.0 76 19 160/76 (104) 99 Room Air 99.0 11/29/20 08:59 2.0 Weight Weight [ ] I.O. Intake and Output Intake and Output 11/29/20 07:00 Intake Total 620 ml Output Total 300 ml Balance 320 ml Intake Oral 620 ml Output Urine Total 300 ml # Voids 1 # Bowel Movements 1 Labs Labs Laboratory Tests Test 11/28/20 16:49 11/28/20 21:31 11/28/20 22:04 11/29/20 08:32 Glucose (Fingerstick) 262 mg/dL (70-99) 197 mg/dL (70-99) 249 mg/dL (70-99) 183 mg/dL (70-99) Test 11/29/20 11:37 Glucose (Fingerstick) 322 mg/dL (70-99) Micro Micro Microbiology 11/27/20 Blood Culture - Preliminary, Resulted Review of Systems Constitutional: yes: weakness, alert Ears/Nose/Throat: Yes: no symptom reported Eyes: Yes: no symptom reported Pulmonary: Yes no symptom reported Cardiovascular: Yes no symptom reported Gastrointestional: Yes: no symptom reported Genitourinary: Yes: no symptom reported Musculoskeletal: Yes: no symptom reported Skin: Yes no symptom reported Psychiatric/Neurological: Yes: no symptom reported Endocrine: Yes: no symptom reported Physical Exam General Appearance: no apparent distress Skin: warm Respiratory: bilateral CTA Heart: S1S2 Abdomen: soft, bowel sounds present Genitourinary: bladder flat Extremities: pulses present Neurology: alert Assessment Assessment IMP HYPOGLYCEMIA OPIATE ABUSE DM II HTN ANEMIA ENCEPHALOPATHY ESRD PULM INFILTRATES PLAN HD MWF CHLOE NEEDED PUI FOR COVID 19 BO DOHERTY MD Nov 29, 2020 15:42
[2020-11-29 19:33] VITALS: BP 193/85
[2020-11-29 22:38] VITALS: BP 212/87
[2020-11-30 02:51] VITALS: BP 198/82
[2020-11-30 05:19] LABS: BASO % 1 % (0-3); EOS # 0.1 x10^3/uL (0.0-0.7); EOS % 2 % (0-3); HEMATOCRIT 27.3 % (39.0-53.0); HEMOGLOBIN 9.3 g/dL (13.0-17.5); LYMPH % 28 % (24-48); MEAN CORPUSCULAR HEMOGLOBIN 33 pg (25-35); MEAN CORPUSCULAR HGB CONC 34 g/dL (31-37); MEAN CORPUSCULAR VOLUME 96 fL (79-100); MONO # 1.3 x10^3/uL (0.0-1.1); MONO % 18 % (0-9); NEUT # 3.7 x10^3/uL (1.8-7.7); NEUT % 52 % (31-73); PLATELET COUNT 246 x10^3/uL (140-400); RED BLOOD COUNT 2.85 x10^6/uL (4.30-5.70); RED CELL DISTRIBUTION WIDTH 13.2 % (11.5-14.5); WHITE BLOOD COUNT 7.1 x10^3/uL (4.0-11.0)
[2020-11-30] MEDS: PIPERACILLIN/TAZOBACTAM 2.25 GM in IV NORMAL SALINE 50ML 50 ML IV SCH (05:30)
[2020-11-30 05:45] LABS: CALCIUM 8.8 mg/dL (8.5-10.1); CREATININE 5.4 mg/dL (0.7-1.3); GFR 11.2; POTASSIUM 3.7 mmol/L (3.5-5.1)
[2020-11-30 07:24] VITALS: BP 203/84
[2020-11-30] MEDS ORDERED: PANTOPRAZOLE 40 MG TABLET.DR. PO SCH (07:30)
[2020-11-30] MEDS: VANCOMYCIN PER PHARMACY MC PRN (08:43)
[2020-11-30] MEDS: LACTOBACILLUS RHAMNOSUS GG 1 CAPSULE. PO SCH (08:50)
[2020-11-30] MEDS: MORPHINE ER 15 MG TABLET.ER PO SCH (08:51)
[2020-11-30] MEDS: HEPARIN for SUB-Q USE 5,000 UNIT/ML VIAL. SQ SCH (08:58)
[2020-11-30] MEDS: INSULIN LISPRO 300 UNITS/3 ML VIAL. SQ SCH (08:58)
[2020-11-30] MEDS ORDERED: DIVALPROEX DELAYED RELEASE 500 MG TABLET.DR. PO SCH (09:00)
[2020-11-30] MEDS ORDERED: RANOLAZINE 500 MG TAB.ER.12H PO SCH (09:00)
[2020-11-30] MEDS ORDERED: CARVEDILOL 12.5 MG TABLET. PO SCH (09:00)
[2020-11-30] MEDS ORDERED: ASPIRIN CHEWABLE 81 MG TABLET. PO SCH (09:00)
[2020-11-30] MEDS ORDERED: LUBIPROSTONE 24 MCG CAPSULE PO SCH (09:00)
[2020-11-30] MEDS ORDERED: LISINOPRIL 20 MG TABLET PO SCH (09:00)
[2020-11-30] MEDS ORDERED: FOLIC/VIT B COMP W-C (RENAL) TABLET. PO SCH (09:00)
[2020-11-30 10:36] VITALS: BP 168/71
--- NOTE | 2020-11-30 11:46 | SNU/HH DC ---
DISCHARGE WITH HOME HEALTH DISCHARGE INFORMATION: Final Diagnosis: Problems Medical Problems: (1) HCAP (healthcare-associated pneumonia) Status: Acute (2) History of opioid abuse Status: Acute (3) Hypoglycemia Status: Acute Condition on Discharge: Stable CODE STATUS: Code Status: Full HOME HEALTH: Face to Face: I certify this patient is under my care and that I, or a nurse practitioner or physician's certified first assistant working with me, had a face to face encounter that meets the physician face to face encounter requirements with this patient on []. Medical Complications: Other (End-stage renal disease UTI) Half-Way For: Assess & Educate Safety RN For Eval/Treatment: Yes Physical Therapy For: Evalulation/Treatment Occupational Therapy For: Evaluation/Treatment Home Health Aide For: Self-care CLEAT THROWER For: Community Resources Pt Meets Homebound Status: Poor coordination w/ amb. POST DISCHARGE ORDERS: Activity Instructions for Disc: Activity as tolerated Weight Bearing Status after Di: No restrictions DIET AFTER DISCHARGE: Renal Wound/Incision Care: Change dressing CHECKS AFTER DISCHARGE: Checks after discharge: Check blood press - daily, Check blood sugar, ac/hs FOLLOW-UP: Follow Up With: Primary Care Provider in 3-5 days TREATMENT/EQUIPMENT ORDERS: Adaptive Equipment Issued: None CERTIFICATION STATEMENT: Certification Statement: Certification Statement: Based on the above finding, I certify that this patient is confined to the home and needs intermittent snf care, physical therapy and/or speech therapy, or continues to need occupational therapy.~ This patient is under my care, and I have initiated the establishment of the plan of care.~ This patient will be followed by myself or a community physician who will periodically review the plan of care. Home Meds Active Scripts Gabapentin (GABAPENTIN ) 100 Mg Capsule, 100 MG PO HS for PAIN for 30 Days, #30 CAP Prov:SALOMÓN HADDAD MD 11/25/20 Gabapentin (GABAPENTIN ) 100 Mg Capsule, 200 MG PO BID92 for PAIN for 14 Days, #60 CAP Prov:SALOMÓN HADDAD MD 11/25/20 Lisinopril (LISINOPRIL) 40 Mg Tablet, 20 MG PO BID for HYPERTENSION for 30 Days, #30 TAB Prov:SALOMÓN HADDAD MD 11/25/20 Fentanyl (FENTANYL 75mcg/hr) 1 Each Patch.td72, 1 PATCH TD Q3DAYS for SEVERE PAIN for 6 Days, #2 PATCH Prov:SALOMÓN HADDAD MD 11/25/20 Acetaminophen (TYLENOL) 325 Mg Tablet, 650 MG PO PRN Q6HRS PRN for Headaches, Temp > 101.5F for 14 Days, #30 TAB Prov:SALOMÓN HADDAD MD 08/10/20 Carvedilol (CARVEDILOL ) 12.5 Mg Tablet, 25 MG PO BIDWMEALS for heart for 30 Days, #120 TAB Prov:SALOMÓN HADDAD MD 08/10/20 Hydralazine Hcl (HYDRALAZINE HCL) 50 Mg Tablet, 50 MG PO BID for blood pressure for 30 Days, #60 TAB Prov:SALOMÓN HADDAD MD 08/10/20 Atorvastatin Calcium (ATORVASTATIN CALCIUM) 40 Mg Tablet, 40 MG PO QHS for cholesterol for 30 Days, #30 TAB Prov:SALOMÓN HADDAD MD 08/10/20 Reported Medications Insulin Degludec (Tresiba) 100 Unit/1 Ml Vial, 25 UNIT SQ DAILY for diabetes, EACH 11/27/20 Ranolazine (RANEXA) 500 Mg Tab.er.12h, 500 MG PO BID for Angina, TAB.SR 05/11/20 Folic Acid/Vit Bcomp,C (Renal-Irvin Tablet) 0.8 Mg Tablet, 0.8 MG PO DAILY for supplement, TAB 04/03/20 Insulin Aspart (NOVOLOG) 100 Unit/1 Ml Vial, 0 SQ PRN TID PRN for sliding scale, VIAL 04/03/20 Ondansetron Hcl (ZOFRAN) 4 Mg Tablet, 1 TAB PO PRN Q4HRS PRN for NAUSEA, #20 TAB 12/30/19 Nitroglycerin (NITROGLYCERIN SubLingual) 0.4 Mg Tab.subl, 0.4 MG SL PRN Q5MIN PRN for CHEST PAIN, BOTTLE 12/30/19 Citalopram Hydrobromide (CITALOPRAM HBR) 40 Mg Tablet, 40 MG PO HS for anxiety, TAB 12/30/19 Pantoprazole Sodium (PROTONIX) 20 Mg Tablet.dr 40 MG PO DAILY for , TAB 07/16/19 Docusate Sodium (DOCUSATE SODIUM) 100 Mg Capsule, 1 CAP PO DAILY for , #30 CAP 07/16/19 Divalproex Sodium (DIVALPROEX SODIUM) 500 Mg Tablet.dr, 2 TAB PO BID for , #60 TAB 1 Refill 07/16/19 Aspirin (ASPIRIN) 81 Mg Tab.chew, 1 TAB PO DAILY for , #30 TAB 3 Refills 07/16/19 Lubiprostone (AMITIZA) 24 Mcg Capsule, 1 CAP PO DAILY for , #60 CAP 5 Refills 07/16/19 Amlodipine Besylate (NORVASC) 10 Mg Tablet, 10 MG PO DAILY, TAB 07/24/18 Sevelamer Carbonate (RENVELA) 800 Mg Tablet, 800 MG PO TIDWMEALS, TAB 07/24/18 Discontinued Reported Medications Insulin Degludec (Tresiba) 100 Unit/1 Ml Vial, 42 UNIT SQ HS for control blood sugar, EACH 06/23/20 Lisinopril (LISINOPRIL) 20 Mg Tablet, 20 MG PO DAILY for FOR HYPERTENSION, #30 TAB 0 Refills 01/17/20 Discontinued Scripts Morphine Sulfate (MORPHINE SULFATE ER) 15 Mg Tablet.er, 1 TAB PO TID for pain fo r 6 Days, #18 TAB Prov:GALI ROMERO MD 11/19/20 Oxycodone/Apap 10-325 (PERCOCET 10-325 MG TABLET ) 1 Each Tablet, 1 TAB PO QIDPRN PRN for PAIN MDD 4 Tablet(s) for 6 Days, #24 TAB 0 Refills Prov:GALI ROMERO MD 11/19/20 Gabapentin (GABAPENTIN ) 100 Mg Capsule, 100 MG PO TID for NEUROGENIC PAIN for 30 Days, #90 CAP Prov:GALI ROMERO MD 05/21/20 [Diclofenac Sodium 1% Topical] 100 GM GEL..GRAM. No Conflict Check, 1 MAYRA TP BID for Costochondritis for 30 Days, #60 EACH Prov:GALI ROMERO MD 03/14/20 MAX CANSECO III DO Nov 30, 2020 11:46
--- NOTE | 2020-11-30 11:50 | PDOC ---
[facility] PROGRESS NOTE Date of Service DOS: DATE: 11/30/20 TIME: 11:48 Chief Complaint Chief Complaint hypoglycemia, AMS, opioid toxicity History of Present Illness History of Present Illness 11/28/2020 - pt seen and assessed at bedside - ana case manageer - ana RN - pt currently on cardiac monitoring - narcotics are being held - pt is slightly more alert than when entered ED last night. 11/29/2020 -Patient seen and examined at bedside -Ana RN -Patient blood cultures positive for gram positive cocci (Staph Epidermidis) -Pt is ESRD on HD -Covid negative -Chart reviewed 11/30/2020 -Patient seen and examined -ANA RN -Chart reviewed Vitals/I&O Vitals/I&O: Vital Signs Date Time Temp Pulse Resp B/P (MAP) Pulse Ox O2 Delivery O2 Flow Rate FiO2 11/30/20 10:36 98.9 77 18 168/71 (103) 97 Room Air 98.9 11/29/20 08:59 2.0 I & O 0 11/29/20 11/29/20 11/30/20 15:00 23:00 07:00 Intake Total 400 ml 300 ml 0 ml Output Total 200 ml Balance 400 ml 100 ml 0 ml Physical Exam General: Alert, Oriented X3, Cooperative Heart: Regular rate, No murmurs Lungs: Clear Abdomen: Normal bowel sounds Extremities: No clubbing, No cyanosis Skin: No breakdown Labs Labs: Laboratory Tests Test 11/29/20 16:26 11/30/20 04:30 Glucose (Fingerstick) 216 mg/dL (70-99) White Blood Count 7.1 x10^3/uL (4.0-11.0) Red Blood Count 2.85 x10^6/uL (4.30-5.70) Hemoglobin 9.3 g/dL (13.0-17.5) Hematocrit 27.3 % (39.0-53.0) Mean Corpuscular Volume 96 fL (79-100) Mean Corpuscular Hemoglobin 33 pg (25-35) Mean Corpuscular Hemoglobin Concent 34 g/dL (31-37) Red Cell Distribution Width 13.2 % (11.5-14.5) Platelet Count 246 x10^3/uL (140-400) Neutrophils (%) (Auto) 52 % (31-73) Lymphocytes (%) (Auto) 28 % (24-48) Monocytes (%) (Auto) 18 % (0-9) Eosinophils (%) (Auto) 2 % (0-3) Basophils (%) (Auto) 1 % (0-3) Neutrophils # (Auto) 3.7 x10^3/uL (1.8-7.7) Lymphocytes # (Auto) 2.0 x10^3/uL (1.0-4.8) Monocytes # (Auto) 1.3 x10^3/uL (0.0-1.1) Eosinophils # (Auto) 0.1 x10^3/uL (0.0-0.7) Basophils # (Auto) 0.0 x10^3/uL (0.0-0.2) Sodium Level 134 mmol/L (136-145) Potassium Level 3.7 mmol/L (3.5-5.1) Chloride Level 98 mmol/L (98-107) Carbon Dioxide Level 28 mmol/L (21-32) Anion Gap 8 (6-14) Blood Urea Nitrogen 41 mg/dL (8-26) Creatinine 5.4 mg/dL (0.7-1.3) Estimated GFR (Cockcroft-Gault) 11.2 Glucose Level 324 mg/dL (70-99) Calcium Level 8.8 mg/dL (8.5-10.1) Review of Systems Review of Systems: no clubbing, no ecchymosis Assessment and Plan Assessmemt and Plan Problems Medical Problems: (1) HCAP (healthcare-associated pneumonia) Status: Acute (2) History of opioid abuse Status: Acute (3) Hypoglycemia Status: Acute 11/30/2020 A: hypoglycemia, AMS, opioid toxicity Plan -Probably d/c today to home health, for now continue the followin IV Vancomycin 2 Rocephin 3 Cardiac monitoring 4 Appreciate subspecialist input 5 Full code 6 Home meds 7 Hold narcotics Comment Review of Relevant I have reviewed the following items nelda (where applicable) has been applied. Medications: Current Medications Medications (Trade) Dose Ordered Sig/Brittani Route PRN Reason Start Time Stop Time Status Last Admin Dose Admin Pantoprazole Sodium (Protonix) 40 mg DAILYAC PO 11/30/20 07:30 11/30/20 08:49 Amlodipine Besylate (Norvasc) 10 mg DAILY PO 11/30/20 09:00 11/30/20 08:49 Aspirin (Aspirin Chewable) 81 mg DAILY PO 11/30/20 09:00 11/30/20 08:50 Carvedilol (Coreg) 25 mg BIDWMEALS PO 11/30/20 09:00 11/30/20 08:50 Divalproex Sodium (Depakote) 1,000 mg BID PO 11/30/20 09:00 11/30/20 08:51 Vitamin B Complex/ Vitamin C (Gissel-Irvin) 1 tab DAILY PO 11/30/20 09:00 11/30/20 08:49 Hydralazine HCl (Apresoline) 50 mg BID PO 11/30/20 09:00 11/30/20 08:50 Lisinopril (Prinivil) 20 mg BID PO 11/30/20 09:00 11/30/20 08:49 Lubiprostone (Amitiza) 24 mcg DAILY PO 11/30/20 09:00 11/30/20 08:50 Ranolazine (Ranexa) 500 mg BID PO 11/30/20 09:00 11/30/20 08:49 Justifications for Admission Other Justification AMS, necrotic ureters, hypoglycemia CASTLE,NIAL K III DO Nov 30, 2020 11:50
[2020-11-30] MEDS ORDERED: SEVELAMER CARBONATE 800 MG TABLET. PO SCH (12:00)
--- NOTE | 2020-11-30 12:27 | NUR ---
Pt alert and oriented throughout shift. Pt less forgetful today than yesterday. Pt denied any acute pain and stated his chronic pain was better today. BP high at start of shift. Pt blood pressure meds resumed and recheck was acceptable. Pt very eager to d/c today due to a in the family and his having to go out of town. stated she had arranged for someone to stay with and has people from their [facility] available to take patient to dialysis MWF. I discussed with that home health will not come until tuesday as tomorrow is his dialysis day. She understood. I went outside and discussed next meds due and discharge paperwork with Patricia the patients . All questions answered. Pt tolerated IV removal. Tip intact. bleeding stopped. bandage applied. I explained to patients that he had not eaten lunch so we did not give insulin. I called script into [facility] in [place] and explained to patient and that he will take the Cipro 2x a day for 7 days. Nursing Cnc Lathe Machinist stated everything was good to go with home Health. I called Dr. Hernandez and he said the patient was ok to discharge from nephro stand point.
--- NOTE | 2020-11-30 12:37 | DS ---
DATE OF DISCHARGE: 11/30/2020 ADMISSION DIAGNOSES: Toxic encephalopathy; probable narcotic overdose; history of end-stage renal disease, on dialysis; hypoglycemia; congestive heart failure. DISCHARGE DIAGNOSES: Resolving narcotic overdose; resolving hypoglycemia; end-stage renal disease, on dialysis; congestive heart failure; diabetes; hypertension; hyperlipidemia; old myocardial infarction; chronic pain; narcotic dependence; peritoneal dialysis catheter; history of bypass surgery; fistula. CONSULTS: Nephrology. PROCEDURES: None. HOSPITAL COURSE: The patient is a pleasant middle-aged male well known to our service. Basically, he probably took a few too many of his narcotics and developed toxic encephalopathy, forgot to eat, he developed hypoglycemia. He was admitted. We held his narcotics, resumed his other home meds. Consulted Nephrology for dialysis. We got his glycemic control stabilized and today he is doing well. We plan to discharge to home with close outpatient followup. DISPOSITION: Home. ACTIVITY: As tolerated. DIET: Low sodium. MEDICATIONS: Please see the MRAD. TOTAL TIME: 32 minutes. MAX CANSE[place] DO DR: EZ/kareem JOB#: [id number] / [id number]
[2020-11-30] MEDS ORDERED: ATORVASTATIN CALCIUM 40 MG TABLET. PO SCH (21:00)
[2020-11-30] MEDS ORDERED: CITALOPRAM 20 MG TABLET. PO SCH (21:00)
[2020-12-01] MEDS ORDERED: VANCOMYCIN 500 MG in IV NORMAL SALINE 100ML 100 ML IV SCH (16:00)
[2020-12-22] MEDS ORDERED: QUET100T4 PO (21:58)
[2021-02-05] MEDS ORDERED: ISOS30TA68 PO (17:14)
[2021-02-07] MEDS ORDERED: CLOP75TA PO (10:46)
[2021-02-07] MEDS ORDERED: HYDR-2869 PO (10:46)
[2021-02-07] MEDS ORDERED: CARV12.511 PO (10:46)
[2021-02-17] MEDS ORDERED: ISOS30TA68 PO (10:39)
== END 2020-11-30 12:30 | disposition home health service (06) | DRG 917 ==
LOC: ER 16:17 → 1 WEST ICU 18:43 → 2 SOUTH 11-28 07:02
PROVIDERS: ADMIT Internal Medicine; ATTEND Internal Medicine
PROC: 5A1D70Z Performance of Urinary Filtration, Intermittent, Less than 6 Hours Per Day (ICD-10-PCS; principal; 2020-11-28)
DX: T40.601A Poisoning by unspecified narcotics, accidental (unintentional), initial encounter (principal); E43 Unspecified severe protein-calorie malnutrition; G92 Toxic encephalopathy; J18.9 Pneumonia, unspecified organism; N18.6 End stage renal disease; I13.2 Hypertensive heart and chronic kidney disease with heart failure and with stage 5 chronic kidney disease, or end stage renal disease; F11.20 Opioid dependence, uncomplicated; D64.9 Anemia, unspecified; E11.22 Type 2 diabetes mellitus with diabetic chronic kidney disease; E11.649 Type 2 diabetes mellitus with hypoglycemia without coma; E78.00 Pure hypercholesterolemia, unspecified; E78.5 Hyperlipidemia, unspecified; F17.200 Nicotine dependence, unspecified, uncomplicated; I25.2 Old myocardial infarction; I50.9 Heart failure, unspecified; Y95 Nosocomial condition; Z20.822 Contact with and (suspected) exposure to COVID-19; Z79.4 Long term (current) use of insulin; Z99.2 Dependence on renal dialysis; G89.29 Other chronic pain; Z88.8 Allergy status to other drugs, medicaments and biological substances; Z79.899 Other long term (current) drug therapy; Z68.28 Body mass index [BMI] 28.0-28.9, adult; Z95.1 Presence of aortocoronary bypass graft; Y92.89 Other specified places as the place of occurrence of the external cause
CPT/HCPCS: 36415; 70450; 71045; 72125; 80048; 80053; 80202; 80307; 80329; 81001; 82550; 82962; 83605; 83735; 83880; 84100; 84484; 85025; 87040; 87077; 87186; 87205; 93005; 96365; 96368; 96375; C9113; J0882; J1644; J1815; J2310; J2405; J2543; J3370; J3490; J7040; J7050; P9612; U0003; 97116-GP; 97535-GO; 99291-25; G0378; G0480; J7030

== ENCOUNTER 2021-01-14 11:28 | Emergency (ER) | payer OTHER ==
[~2021-01-14] VITALS: Ht 190.5 cm; Wt 113.6 kg
--- NOTE | 2021-01-14 12:07 | PHYS DOC ---
Past Medical History Past Medical History: CHF, Diabetes-Type II, High Cholesterol, Hypertension, [place], Renal Disease Additional Past Medical Histor: chronic back pain, DIALYSIS MWF Past Surgical History: Other Additional Past Surgical Histo: HERNIA, peritoneal dialysis cath, 5-WAY CARDIAC BYPASS, FISTULA LAURE Smoking Status: Current Every Day Smoker Alcohol Use: None Drug Use: None General Adult EDM: Chief Complaint: KNEE INJURY HPI: HPI: Patient is a 55 year old male with history of diabetes type 2, hypertension, kidney disease on dialysis Tuesday last dialyzed on Tuesday presenting today complaining of moderate right knee pain that began today after he fell going to the bathroom. Patient denies any loss of consciousness. Denies hitting his head on the ground. Reports the pain is worse on touching his knee and movement. Denies anything specifically relieving the pain. Descr ibes the pain as sharp and constant and he is requesting morphine, he states he takes morphine every day at home and did not take it this morning Review of Systems: Review of Systems: Constitutional: Denies fever or chills. [] Musculoskeletal: Reports right knee pain. Denies back pain Integument: Denies rash. [] Neurologic: Denies headache, focal weakness or sensory changes. [] Psychiatric: Denies depression or anxiety. [] Heart Score: C/O Chest Pain: N/A Risk Factors: Risk Factors: DM, Current or recent (<one month) smoker, HTN, HLP, family history of CAD, obesity. Risk Scores: Score 0 - 3: 2.5% MACE over next 6 weeks - Discharge Home Score 4 - 6: 20.3% MACE over next 6 weeks - Admit for Clinical Observation Score 7 - 10: 72.7% MACE over next 6 weeks - Early Invasive Strategies Allergies: Allergies: Allergies Coded Allergies Type Severity Reaction Last Updated Verified hydromorphone Allergy Severe Anaphylaxis 06/24/20 Yes Physical Exam: PE: Constitutional: Well developed, well nourished, no acute distress, non-toxic appearance. [] Skin: Warm, dry, no erythema, no rash. [] Back: No tenderness, no CVA tenderness. [] Extremities: Right knee with no obvious deformity. Old healed surgical incision noted on the lower aspect of the knee. Limited range of motion to the knee, patient would not let us even touch the knee. +2 right pedal pulse. Cap refill less than 2 seconds the right toes. Full range of motion to the right toes. Neurologic: Alert and oriented X 3, normal motor function, normal sensory function, no focal deficits noted. [] Psychologic: flat affect, depressed mood Current Patient Data: Vital Signs: Vital Signs Date Time Temp Pulse Resp B/P (MAP) Pulse Ox O2 Delivery O2 Flow Rate FiO2 01/14/21 11:43 98.5 68 20 180/107 (131) 95 Room Air 98.5 EKG: EKG: [] Radiology/Procedures: Radiology/Procedures: []PROCEDURE: KNEE RIGHT 4V EXAM: XR KNEE 4 VIEWS WITH PATELLA_RT 01/14/2021 12:01 PM CLINICAL INDICATION: Fall, knee COMPARISON: None TECHNIQUE: 4 views of the right knee FINDINGS: Partially visualized tibial intramedullary nail is intact where visu alized. There is no acute fracture of the knee. Alignment is normal. There is mild medial compartment narrowing. Small joint effusion. Vascular calcifications are noted. IMPRESSION: No acute osseous abnormality. Electronically signed by: Maryjane Reno MD (01/14/2021 12:37 PM) [id number] DICTATED and SIGNED BY: MARYJANE RENO MD DATE: 01/14/21 [id number] Course & Med Decision Making: Course & Med Decision Making Pertinent Labs and Imaging studies reviewed. (See chart for details) This is a 55-year-old male patient presented to the ED today with right knee pain that began today after he fell. Right knee x-rays are negative for any acute findings. Patient is requesting morphine extended release, he states he gets this medicine every day for chronic pain. The had called the RN and told the RN Dr. Khan patient's primary care doctor had stopped his morphine because they think it is was making patient confused.D/c to home. F/u with Ortho and PCP in one week Neelima Disclaimer: Neelima Disclaimer: This electronic medical record was generated, in whole or in part, using a voice recognition dictation system. Departure Departure Impression: Primary Impression: ESRD (end stage renal disease) on dialysis Additional Impressions: Fall Qualified Codes: W19.XXXA - Unspecified fall, initial encounter Contusion of right knee Qualified Codes: S80.01XA - Contusion of right knee, initial encounter Disposition: HOME SELF CARE/HOMELESS Condition: LEFT WITHOUT BEING SEEN Referrals: TAMI KHAN MD (PCP) TERRELL ROBISON MD Patient Instructions: Knee Pain, [id number] Additional Instructions: You were evaluated in the emergency room for right knee pain, your right knee x- rays are negative for any acute findings. Try to ice and elevate your extremity. You can follow-up with orthopedic doctor provided in 1 to 2 weeks. Come back to the ED at any point symptoms worsen. GONZALO WOO APRN Jan 14, 2021 12:07
[2021-01-14] MEDS ORDERED: MORPHINE SULFATE 10 MG/ML VIAL. IM ONE (12:15)
--- NOTE | 2021-01-14 12:40 | RAD ---
EXAM: XR KNEE 4 VIEWS WITH PATELLA_RT 01/14/2021 12:01 PM CLINICAL INDICATION: Fall, knee COMPARISON: None TECHNIQUE: 4 views of the right knee FINDINGS: Partially visualized tibial intramedullary nail is intact where visualized. There is no ac false pass fracture of the knee. Alignment is normal. There is mild medial compartment narrowing. Small join t effusion. Vascular calcifications are noted. IMPRESSION: No acute osseous abnormality. Electronically signed by: Maryjane Reno MD (01/14/2021 12:37 PM) [id number]
--- NOTE | 2021-01-14 13:36 | NUR ---
Pt requesting to see nurse or provider. Romina SCHRADER notified.
--- NOTE | 2021-01-14 13:36 | NUR ---
Chase wrap applied to right knee.
[2021-01-14 14:00] VITALS: BP 131/59
== END 2021-01-14 15:05 | disposition home or self-care (01) ==
LOC: ER 11:28
DX: S80.01XA Contusion of right knee, initial encounter (principal); I13.2 Hypertensive heart and chronic kidney disease with heart failure and with stage 5 chronic kidney disease, or end stage renal disease; E11.22 Type 2 diabetes mellitus with diabetic chronic kidney disease; N18.6 End stage renal disease; I50.9 Heart failure, unspecified; Z99.2 Dependence on renal dialysis; E78.00 Pure hypercholesterolemia, unspecified; I25.2 Old myocardial infarction; F17.200 Nicotine dependence, unspecified, uncomplicated; Z95.1 Presence of aortocoronary bypass graft; Z88.5 Allergy status to narcotic agent; W18.39XA Other fall on same level, initial encounter; Y93.89 Activity, other specified; Y92.89 Other specified places as the place of occurrence of the external cause; Y99.8 Other external cause status
CPT/HCPCS: 73564; 99283